=== PATIENT | female | born 1960 | race Caucasian/White ===

== ENCOUNTER 2017-08-15 21:38 | Emergency (ER) | payer MEDICARE, OTHER ==
[~2017-08-15] VITALS: Ht 172.7 cm; Wt 73.5 kg
[~2017-08-15 21:38] MED LIST: ABILIFY5 MG PO; ALBU INH; ALBUTEROL2.5 MG/0.5; ALBUTEROL25 GM INH; AMITRIPTYLINE H25 MG PO; ARICEPT5 MG PO; BUSPAR PO; BUSPIRONE HCL15 MG PO; CELEBREX100 MG PO; COMBIVENT INH14.7 GM INH; COMBIVENT RESPIM4 GM IH; CYCLOBENZAPRINE10 MG PO; FAMOTIDINE20 MG PO; FLUOXETINE HCL20 M1 PO; GLIMEPIRIDE2 MG PO; GLIMEPIRIDE4 MG PO; LANTUS 3ML100 UNITS/ SC; LANTUS100 UNIT/1 SQ; LASIX40 MG PO; LEVAQUIN500 MG PO; LEVOFLOXACIN500 MG PO; LISINOPRIL2.5 MG PO; LOSARTAN POTASS25 MG PO; LYRICA75 MG PO; NEURONTIN300 MG PO; NICOTINE PATCH1 EAC1; PANTOPRAZOLE SO40 MG PO; PRAVASTATIN SOD40 MG PO; PREDNISONE10 MG PO; PREVACID30 MG PO; PROAIR HFA INH8.5 GM INH; PROZAC20 MG PO; SIMVASTATIN20 MG PO; SUCRALFATE1 GM PO; SYMBICORT INH; TOPROL XL25 MG PO; VENLAFAXINE HCL75 MG PO; ZITHROMAX250 MG PO
[2017-08-15] MEDS ORDERED: MORPHINE SULFATE 2 MG/ML SYR IV STA (21:49)
[2017-08-15] MEDS ORDERED: ONDANSETRON HCL INJ 2 MG/ML VIAL IV STA (21:49)
[2017-08-15] MEDS ORDERED: SODIUM CHLORIDE 0.9% 1000ML 1,000 ML IV STA (21:49)
[2017-08-15] MEDS ORDERED: TETANUS/DIPHTHERIA TOX ADULT 0.5 ML SYR IM ONE (22:15)
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
[2017-08-15 22:37] LABS: BASOPHILS # (AUTO) 0.1 (0.0-0.1); BASOPHILS % 1.2 % (0.0-1.0); EOSINOPHILS % 0.2 % (0.0-6.0); HEMATOCRIT 33.9 % (34.2-44.1); HEMOGLOBIN 11.5 g/dL (12.0-16.0); LYMPHOCYTES # (AUTO) 1.6 (1.0-3.2); LYMPHOCYTES % 16.8 % (18.0-39.1); MEAN CORPUSCULAR HEMOGLOBIN 30.8 pg (28-32); MEAN CORPUSCULAR HGB CONC 33.9 g/dL (31-35); MEAN CORPUSCULAR VOLUME 90.9 fL (81-99); MONOCYTES # (AUTO) 0.8 (0.2-0.8); MONOCYTES % 8.5 % (4.4-11.3); NEUTROPHILS # (AUTO) 6.9 (2.1-6.9); NEUTROPHILS % 73.1 % (38.7-80.0); PLATELET COUNT 215 x10e3/uL (140-360); RED BLOOD COUNT 3.73 x10e6/uL (3.6-5.1); RED CELL DISTRIBUTION WIDTH 12.3 % (11.7-14.4)
[2017-08-15 22:46] LABS: INR 1.04; PROTHROMBIN TIME 14.1 seconds (11.9-14.5)
[2017-08-15 22:47] LABS: PARTIAL THROMBOPLASTIN TIME 27.8 seconds (23.8-35.5)
[2017-08-15 22:57] LABS: ALBUMIN/GLOBULIN RATIO 0.9 (0.8-2.0); ANION GAP 18.2 mmol/L (8-16); CALCIUM 9.5 mg/dL (8.4-10.2); CREATININE, SERUM 1.52 mg/dL (0.57-1.11); MAGNESIUM 2.1 MG/DL (1.3-2.1); POTASSIUM 4.2 mmol/L (3.5-5.1)
[2017-08-15 23:03] LABS: CREATINE KINASE MB 2.4 ng/mL (0.00-5.00); TROPONIN I 0.021 ng/mL (0-0.300)
== END 2017-08-15 22:07 | disposition short-term general hospital (02) ==
LOC: ER 21:38
DX: T20.27XA Burn of second degree of neck, initial encounter (principal); T23.222A Burn of second degree of single left finger (nail) except thumb, initial encounter; T20.16XA Burn of first degree of forehead and cheek, initial encounter; T20.14XA Burn of first degree of nose (septum), initial encounter; T20.12XA Burn of first degree of lip(s), initial encounter; T22.111A Burn of first degree of right forearm, initial encounter; T23.102A Burn of first degree of left hand, unspecified site, initial encounter; T26.01XA Burn of right eyelid and periocular area, initial encounter; X04.XXXA Exposure to ignition of highly flammable material, initial encounter; Y92.000 Kitchen of unspecified non-institutional (private) residence as the place of occurrence of the external cause; I10 Essential (primary) hypertension; E11.9 Type 2 diabetes mellitus without complications; I25.10 Atherosclerotic heart disease of native coronary artery without angina pectoris; I25.2 Old myocardial infarction
CPT/HCPCS: 16025; 36415; 71010; 80053; 82550; 82553; 83735; 84484; 85025; 85610; 85730; 90471; 90714; 93005; 96360; 96374; 96375; 96376; 99284; J2270; J2405

== ENCOUNTER 2017-08-24 04:45 | Emergency (ER) | payer MEDICARE, OTHER ==
[~2017-08-24] VITALS: Ht 172.7 cm; Wt 73.5 kg
== END 2017-08-24 06:39 | disposition short-term general hospital (02) ==
LOC: ER 04:52
DX: R52 Pain, unspecified (principal)

== ENCOUNTER 2018-08-08 06:38 | Inpatient (IN) | payer MEDICARE, OTHER ==
[~2018-08-08] VITALS: Ht 171.4 cm; Wt 80.5 kg
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
[2018-08-08] MEDS ORDERED: DEXAMETHASONE SOD PHOS 10 MG/1 ML VIAL IV ONE (07:30)
[2018-08-08] MEDS ORDERED: ALBUTEROL/IPRATROPIUM 3 ML NEB NEB ONE (07:30)
[2018-08-08] MEDS ORDERED: MAGNESIUM SULFATE 2GM/50ML 50 ML IV ONE (07:30)
[2018-08-08] MEDS ORDERED: COMBIVENT RESPIM4 GM IH (07:31)
[2018-08-08] MEDS ORDERED: LAMOTRIGINE100 MG PO (07:31)
[2018-08-08] MEDS ORDERED: QUETIAPINE FUMA50 MG PO (07:31)
[2018-08-08] MEDS ORDERED: MELOXICAM15 MG PO (07:31)
[2018-08-08 07:54] LABS: BASOPHILS # (AUTO) 0.1 (0.0-0.1); BASOPHILS % 0.4 % (0.0-1.0); HEMATOCRIT 32.1 % (34.2-44.1); LYMPHOCYTES # (AUTO) 1.6 (1.0-3.2); LYMPHOCYTES % 13.9 % (18.0-39.1); MEAN CORPUSCULAR HEMOGLOBIN 31.2 pg (28-32); MEAN CORPUSCULAR HGB CONC 32.1 g/dL (31-35); MEAN CORPUSCULAR VOLUME 97.3 fL (81-99); MONOCYTES # (AUTO) 0.7 (0.2-0.8); MONOCYTES % 6.4 % (4.4-11.3); NEUTROPHILS % 78.9 % (38.7-80.0); PLATELET COUNT 217 x10e3/uL (140-360); RED CELL DISTRIBUTION WIDTH 11.8 % (11.7-14.4)
[2018-08-08 07:57] LABS: HEMOGLOBIN 10.3 g/dL (12.0-16.0)
--- NOTE | 2018-08-08 08:17 | Diagnostic Imaging Report ---
EXAM: CHEST 2 VIEWS, PA and lateral DATE: 08/08/2018 7:03 AM Time stamp on exam: 7:38 AM INDICATION: Shortness of breath COMPARISON: 08/15/2017 FINDINGS: LINES/TUBES: None LUNGS: Lungs are hyperexpanded compatible with COPD. Interval development of bibasilar interstitial opacities when compared to the prior study. These are likely related to infection. PLEURA: No effusions or pneumothorax. HEART AND MEDIASTINUM: Normal size and contour. BONES AND SOFT TISSUES: Right first rib is enlarged and sclerotic but unchanged. IMPRESSION: Findings of COPD with interval development of bibasilar opacities. Signed by: Dr. Amadou Aguirre DO on 08/08/2018 8:14 AM
[2018-08-08 08:20] LABS: CREATINE KINASE MB 2.6 ng/mL (0-5.0)
[2018-08-08 08:29] LABS: ALANINE AMINOTRANSFERASE 14 IU/L (0-55); ALBUMIN 3.2 g/dL (3.5-5.0); ALBUMIN/GLOBULIN RATIO 1.1 (0.8-2.0); ALKALINE PHOSPHATASE 142 IU/L (40-150); ANION GAP 17.4 mmol/L (8-16); BLOOD UREA NITROGEN 11 mg/dL (7-26); BUN/CREATININE RATIO 14 (6-25); CARBON DIOXIDE 30 mmol/L (22-29); CHLORIDE 101 mmol/L (98-107); CREATININE, SERUM 0.81 mg/dL (0.57-1.11); EST GLOMERULAR FILTRATION RATE > 60 ML/MIN (60-); GLUCOSE 206 mg/dL (74-118); POTASSIUM 4.4 mmol/L (3.5-5.1); SODIUM 144 mmol/L (136-145)
[2018-08-08 09:29] LABS: ABG HCO3 33 mmol/L (23-28); ABG PCO2 54 mmHg (41-51); ABG PO2 69 mmHg (80-105)
[2018-08-08] MEDS ORDERED: SODIUM CHLORIDE FLUSH 10 ML SYR INJ PRN (10:45)
[2018-08-08] MEDS ORDERED: DEXTROSE 50% SYRINGE 50 ML IV PRN (10:45)
[2018-08-08] MEDS ORDERED: ASPIRIN 81 MG CHEW TAB PO ONE (10:45)
[2018-08-08] MEDS: ALBUTEROL/IPRATROPIUM 3 ML NEB NEB SCH ×4 (11:00→23:45)
[2018-08-08] MEDS: CEFTAROLINE FOSAMIL ACETATE 400 MG in SODIUM CHLORIDE 0.9% 250ML 250 ML IV SCH ×2 (11:01→22:57)
[2018-08-08 11:28] LABS: ABG HCO3 33 mmol/L (23-28); ABG PCO2 54 mmHg (41-51); ABG PH 7.39 (7.31-7.41); ABG PO2 89 mmHg (80-105)
[2018-08-08] MEDS: INSULIN REGULAR, HUMAN 100 UNIT/1 ML 3ML VIAL SQ SCH ×3 (11:45→22:57)
[2018-08-08 16:09] LABS: CREATINE KINASE MB 2.8 ng/mL (0-5.0)
[2018-08-08 16:21] LABS: CHOL/HDL RATIO 2.2 (3.0-3.6)
[2018-08-08] MEDS: GUAIFENESIN/DEXTROMETHORPHAN LIQD 5 ML UDC NG SCH ×2 (16:25→22:57)
[2018-08-08] MEDS: ENOXAPARIN SOD INJ 40 MG/0.4 ML SYR SC SCH (17:27)
[2018-08-08] MEDS: FAMOTIDINE 20 MG TAB PO SCH (17:27)
[2018-08-08] MEDS: FAMOTIDINE 20 MG/2 ML VIAL IV SCH (17:36)
[2018-08-08] MEDS: QUETIAPINE FUMARATE 25 MG TAB PO SCH (17:36)
--- NOTE | 2018-08-08 19:14 | NUR ---
RECEIVED REPORT FROM VIVIANA ARNETT.
--- NOTE | 2018-08-08 20:36 | Consultation ---
DATE OF CONSULTATION: August 08, 2018 PULMONARY CONSULTATION REASON FOR CONSULTATION: Shortness of breath, COPD. HPI: Ms. Smith is a 58-year-old female known to our practice. She sees Dr. Real for COPD. She has severe COPD and she has chronic hypoxic respiratory failure and uses home oxygen. She still smokes. She has been a smoker for 40 years. She denies any complaints of chest pain, nausea or vomiting. She reports she started having increasing wheezing and shortness of breath and so she decided to come to the emergency room. REVIEW OF SYSTEMS: GENERAL: Denies any fever or chills. HEAD: Denies any head trauma. ENT: Denies any earache. CVS: Denies any chest pain. RESPIRATORY: Shortness of breath. GI: Denies any nausea or vomiting. The rest of the review of systems are negative except as in HPI. PAST MEDICAL HISTORY: Hypertension, COPD, hyperlipidemia, diabetes, bipolar disorder. SOCIAL HISTORY: She does not smoke. She has been a smoker for 35+ years. FAMILY HISTORY: Is noncontributory. ALLERGIES: PENICILLIN. PHYSICAL EXAMINATION: VITALS: Temperature 97.8, pulse of 72, blood pressure 157/65, respiratory rate of 18. HEENT: Head is atraumatic and normocephalic. NECK: Supple. CHEST: Wheezing bilaterally and crackles. HEART: S1 and S2 audible. ABDOMEN: Soft, nontender and nondistended. EXTREMITIES: No pedal edema. NEURO: She is awake and alert, following commands. She answers questions appropriately. LABORATORY DATA: White count of 11,000, hemoglobin 10.3, platelets 217. Chemistry: Sodium 144, potassium 4.4, chloride 101. BUN 11, creatinine 0.8. BNP 441.6. Chest x-ray: I reviewed the images showing hyperinflation and some opacities in the bases. ASSESSMENT AND PLAN: Ms. Smith is a 58-year-old female who presented with worsening shortness of breath. CURRENT PROBLEMS: 1. Chronic obstructive pulmonary disease exacerbation, possible pneumonia. 2. Hypertension. 3. Bipolar disorder. PLAN: 1. Agree with the antibiotics. Patient is at risk for getting Pseudomonas infection, hence agree with sertraline. 2. DuoNeb treatment q.4 hourly. 3. Lovenox subcutaneous for DVT prophylaxis. 4. Solu-Medrol 40 IV b.i.d.. Thank you for this consult. Job#: [id number] GH
--- NOTE | 2018-08-08 21:23 | NUR ---
received report from Rhianna WIN
--- NOTE | 2018-08-08 21:45 | NUR ---
Received patient from ER bed to bed accompanied by ER staff, alert, on O2 support, on telemetry, on continuous pulse ox, Sat at 97%. Placed comfortably in bed. Call light within reached, advised to call for assistance when needed, bed alarm activated, side rails up, bed in low and locked position. Will continue to monitor Addendum: 08/09/18 at 0053 by ARLINE REHMAN RN Received patient per meghan
[2018-08-08 22:00] VITALS: BP 112/56
--- NOTE | 2018-08-08 22:21 | History and Physical ---
PRIMARY CARE PHYSICIAN: Dr. Veronica CHIEF COMPLAINT: Shortness of breath and cough. HISTORY OF PRESENT ILLNESS: This is a 58-year-old woman recently discharged from [facility] with persistent cough and shortness of breath, subjective fevers for the past 3 days; therefore, she came to the hospital. She was found to have lung infiltrate and acute exacerbation of copd. She was admitted for further evaluation and management. PAST MEDICAL HISTORY: Severe COPD on 4 L of nasal cannula oxygen at home, asthma, diabetes mellitus, pneumonia, hypertension, bipolar disorder, depression. PAST SURGICAL HISTORY: Cholecystectomy, appendectomy, tonsillectomy, gastric band. ALLERGIES: PER ELECTRONIC MEDICAL RECORD. MEDICATIONS: Per electronic medical record. SOCIAL HISTORY: Patient is single. No alcohol or illicits. She smokes about a pack of cigarettes per day. MEDICATIONS: Per electronic medical record. REVIEW OF SYSTEMS: Denies any headache, chest pain. Denies any leg pain, back pain. Denies any vision changes. PHYSICAL EXAMINATION VITAL SIGNS: Reviewed. GENERAL: A tired-appearing woman resting in bed. HEENT: Anicteric. CARDIOVASCULAR: Normal S1 and S2. LUNGS: Reduced breath sounds throughout. ABDOMEN: Soft, nontender, nondistended. EXTREMITIES: No edema. SKIN: Dry. PSYCHIATRIC: Normal affect. LABS: Reviewed. MEDICATIONS: Reviewed. ASSESSMENT: This is a 58-year-old man with: 1. Acute exacerbation of chronic obstructive pulmonary disease. 2. Acute respiratory distress with healthcare-associated pneumonia. 3. Cigarette use. 4. Bipolar disorder. 5. Depression. 6. Normocytic anemia. 7. Diabetes mellitus. PLAN 1. Antibiotics plus steroids plus antihistamine plus antitussive medications. 2. Continue home medication of venlafaxine, sucralfate, lamotrigine. 3. Continue Lasix 40 daily. 4. Continue fluoxetine. 5. Cigarette cessation counseling. 6. Prophylaxis with Pepcid and Lovenox. 7. Disposition: Follow up closely. Obtain sputum culture. Pulmonary consultation. Job#: [id number] CQ
[2018-08-08 22:25] VITALS: BP 112/56
[2018-08-08] MEDS: METHYLPREDNISOLONE SOD SUCC 40 MG/ML VIAL IV SCH (22:56)
[2018-08-08] MEDS: LAMOTRIGINE 100 MG TAB PO SCH (22:57)
[2018-08-08] MEDS: PRAVASTATIN 20 MG TAB PO SCH (22:57)
[2018-08-09] VITALS (7 sets, daily range): BP systolic 108–139; BP diastolic 49–63
[2018-08-09] MEDS: ALBUTEROL/IPRATROPIUM 3 ML NEB NEB SCH ×6 (03:10→23:00)
[2018-08-09 04:45] LABS: BASOPHILS % 0.2 % (0.0-1.0); HEMATOCRIT 30.2 % (34.2-44.1); HEMOGLOBIN 9.7 g/dL (12.0-16.0); LYMPHOCYTES # (AUTO) 0.7 (1.0-3.2); LYMPHOCYTES % 5.6 % (18.0-39.1); MEAN CORPUSCULAR HEMOGLOBIN 30.3 pg (28-32); MEAN CORPUSCULAR HGB CONC 32.1 g/dL (31-35); MEAN CORPUSCULAR VOLUME 94.4 fL (81-99); MONOCYTES # (AUTO) 0.1 (0.2-0.8); MONOCYTES % 1.2 % (4.4-11.3); NEUTROPHILS # (AUTO) 10.9 (2.1-6.9); NEUTROPHILS % 92.5 % (38.7-80.0); PLATELET COUNT 212 x10e3/uL (140-360); RED CELL DISTRIBUTION WIDTH 11.7 % (11.7-14.4)
[2018-08-09 05:01] LABS: ANION GAP 12.3 mmol/L (8-16); CALCIUM 8.9 mg/dL (8.4-10.2); CREATININE, SERUM 1.03 mg/dL (0.57-1.11); POTASSIUM 4.3 mmol/L (3.5-5.1)
[2018-08-09] MEDS: GUAIFENESIN/DEXTROMETHORPHAN LIQD 5 ML UDC NG SCH ×3 (06:05→22:16)
[2018-08-09 06:53] LABS: CREATINE KINASE MB 2.2 ng/mL (0-5.0)
--- NOTE | 2018-08-09 07:04 | NUR ---
IM- Progress Note O/N; no events REVIEW OF SYSTEMS: Denies any headache, chest pain. Denies any leg pain, back pain. Denies any vision changes. PHYSICAL EXAMINATION VITAL SIGNS: Reviewed. GENERAL: A tired-appearing woman resting in bed. HEENT: Anicteric. CARDIOVASCULAR: Normal S1 and S2. LUNGS: Reduced breath sounds throughout. ABDOMEN: Soft, nontender, nondistended. EXTREMITIES: No edema. SKIN: Dry. PSYCHIATRIC: Normal affect. LABS: Reviewed. MEDICATIONS: Reviewed. ASSESSMENT: This is a 58-year-old man with: 1. Acute exacerbation of chronic obstructive pulmonary disease. 2. Acute respiratory distress with healthcare-associated pneumonia. 3. Cigarette use. 4. Bipolar disorder. 5. Depression. 6. Normocytic anemia. 7. Diabetes mellitus. PLAN 1. Antibiotics plus steroids plus antihistamine plus antitussive medications. 2. Continue home medication of venlafaxine, sucralfate, lamotrigine. 3. Continue Lasix 40 daily. 4. Continue fluoxetine. 5. Cigarette cessation counseling. 6. Prophylaxis with Pepcid and Lovenox. 7. Disposition: Follow up closely. Obtain sputum culture. Pulmonary consultation. 08/09 cont current care. Josh Gilliam MD, PhD
--- NOTE | 2018-08-09 07:10 | NUR ---
Yaneth RT informed of the ABG order for this morning and it says active, he said it's already done, 2 ABG's done yesterday.
--- NOTE | 2018-08-09 07:54 | NUR ---
RECEIVED PATIENT IN BED WITH ONGOING OXYGEN AT [facility] VIA NASAL CANNULA.
[2018-08-09] MEDS: SUCRALFATE 1 GM TAB PO SCH (09:27)
[2018-08-09] MEDS: FAMOTIDINE 20 MG TAB PO SCH ×2 (09:27→17:26)
[2018-08-09] MEDS: METHYLPREDNISOLONE SOD SUCC 40 MG/ML VIAL IV SCH ×2 (09:29→22:16)
[2018-08-09] MEDS: CEFTAROLINE FOSAMIL ACETATE 400 MG in SODIUM CHLORIDE 0.9% 250ML 250 ML IV SCH ×2 (09:29→22:16)
[2018-08-09] MEDS: LOSARTAN POTASSIUM 25 MG TAB PO SCH (09:30)
[2018-08-09] MEDS: VENLAFAXINE HCL 75 MG TAB PO SCH (09:31)
[2018-08-09] MEDS: ALPRAZOLAM 0.25 MG TAB PO SCH ×3 (09:31→22:16)
[2018-08-09] MEDS: FLUOXETINE HCL 20 MG CAP PO SCH (09:31)
[2018-08-09] MEDS: FAMOTIDINE 20 MG/2 ML VIAL IV SCH (09:31)
[2018-08-09] MEDS: QUETIAPINE FUMARATE 25 MG TAB PO SCH ×2 (09:31→17:26)
[2018-08-09] MEDS: FUROSEMIDE 40 MG TAB PO SCH (09:31)
[2018-08-09] MEDS: LORATADINE 10 MG TAB PO SCH (09:31)
[2018-08-09] MEDS: INSULIN REGULAR, HUMAN 100 UNIT/1 ML 3ML VIAL SQ SCH ×5 (10:04→22:17)
--- NOTE | 2018-08-09 10:14 | NUR ---
[employer] Lead to bedside to discuss plan of care with patient/family. CM/SW role and care transitions discussed. Anticipated discharge plan discussed along with duration of care. CM/SW discussed patients right to make decisions in care. CM/SW work hours given. Patient lives: alone Admit/Transfer: thru ED, from home POA/Emergency contact: daughters Bria Lux at [phone] and Meera Lux at [phone] Current/Previous Home Health: none PCP/Follow-up Care: Dr. 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 Name and number was also written on the patients whiteboard. Patient verbalized understanding of discussion. CM will follow-up with ongoing discharge and transition of care needs.
--- NOTE | 2018-08-09 10:18 | NUR ---
DR. ROLDAN MADE NEW ORDERS TO DISCONTINUE FAMOTIDINE INJECTION.
[2018-08-09] MEDS: ENOXAPARIN SOD INJ 40 MG/0.4 ML SYR SC SCH (17:26)
--- NOTE | 2018-08-09 18:23 | NUR ---
PATIENT STATED SHE TAKES LANTUS 15 UNITS SQ AT NIGHT TIME. DR ROLDAN NOTIFIED AND ORDERED TO START LANTUS SQ AT HS.
[2018-08-09] MEDS ORDERED: LANTUS 3ML100 UNITS/ SQ (18:35)
--- NOTE | 2018-08-09 20:20 | NUR ---
call placed to dr. rutherford, he stated "i am busy, i will call you right back". awaiting call back for elevated glucose. see emar for insulin administration. patient in stable condition at this time. encouraged patient to increase water intake. patient verbalized understanding.
[2018-08-09] MEDS: INSULIN DETEMIR 100 UNIT/ML PEN SQ SCH (20:26)
--- NOTE | 2018-08-09 21:45 | NUR ---
spoke with Dr. Gilliam regarding patients elevated blood sugar, and interventions provided. orders to change sliding scale to medium dose, first dose now and changed accucheck from ACHS to Q6. orders entered, and implemented. patient remains in stable condition. bed locked and in lowest position, call light within easy reach. will continue to monitor the patient closely.
[2018-08-09] MEDS ORDERED: DEXTROSE 50% SYRINGE 50 ML IV PRN (22:00)
[2018-08-09] MEDS: PRAVASTATIN 20 MG TAB PO SCH (22:16)
[2018-08-09] MEDS: LAMOTRIGINE 100 MG TAB PO SCH (22:16)
[2018-08-10] VITALS (8 sets, daily range): BP systolic 123–168; BP diastolic 59–74
[2018-08-10] MEDS ORDERED: ACETAMINOPHEN 325 MG TAB PO PRN (00:30)
[2018-08-10] MEDS: ALBUTEROL/IPRATROPIUM 3 ML NEB NEB SCH ×6 (03:00→23:30)
[2018-08-10] MEDS: ALPRAZOLAM 0.25 MG TAB PO SCH ×3 (06:15→21:55)
[2018-08-10] MEDS: GUAIFENESIN/DEXTROMETHORPHAN LIQD 5 ML UDC NG SCH ×3 (06:15→21:55)
[2018-08-10] MEDS: INSULIN REGULAR, HUMAN 100 UNIT/1 ML 3ML VIAL SQ SCH ×4 (06:16→17:52)
--- NOTE | 2018-08-10 07:31 | NUR ---
IM- Progress Note O/N; no events REVIEW OF SYSTEMS: Denies any headache, chest pain. Denies any leg pain, back pain. Denies any vision changes. PHYSICAL EXAMINATION VITAL SIGNS: Reviewed. GENERAL: A tired-appearing woman resting in bed. HEENT: Anicteric. CARDIOVASCULAR: Normal S1 and S2. LUNGS: Reduced breath sounds throughout. ABDOMEN: Soft, nontender, nondistended. EXTREMITIES: No edema. SKIN: Dry. PSYCHIATRIC: Normal affect. LABS: Reviewed. MEDICATIONS: Reviewed. ASSESSMENT: This is a 58-year-old man with: 1. Acute exacerbation of chronic obstructive pulmonary disease. 2. Acute respiratory distress with healthcare-associated pneumonia. 3. Cigarette use. 4. Bipolar disorder. 5. Depression. 6. Normocytic anemia. 7. Diabetes mellitus. PLAN 1. Antibiotics plus steroids plus antihistamine plus antitussive medications. 2. Continue home medication of venlafaxine, sucralfate, lamotrigine. 3. Continue Lasix 40 daily. 4. Continue fluoxetine. 5. Cigarette cessation counseling. 6. Prophylaxis with Pepcid and Lovenox. 7. Disposition: Follow up closely. Obtain sputum culture. Pulmonary consultation. 08/09 cont current care. 08/10 cont meds; refuses SNF. Josh Gilliam MD, PhD
[2018-08-10 07:47] LABS: BASOPHILS % 0.3 % (0.0-1.0); HEMATOCRIT 28.8 % (34.2-44.1); HEMOGLOBIN 9.2 g/dL (12.0-16.0); LYMPHOCYTES % 7.5 % (18.0-39.1); MEAN CORPUSCULAR HEMOGLOBIN 31.1 pg (28-32); MEAN CORPUSCULAR HGB CONC 31.9 g/dL (31-35); MEAN CORPUSCULAR VOLUME 97.3 fL (81-99); MONOCYTES # (AUTO) 0.5 (0.2-0.8); MONOCYTES % 3.7 % (4.4-11.3); NEUTROPHILS # (AUTO) 11.3 (2.1-6.9); PLATELET COUNT 203 x10e3/uL (140-360); RED BLOOD COUNT 2.96 x10e6/uL (3.6-5.1); RED CELL DISTRIBUTION WIDTH 12.2 % (11.7-14.4)
[2018-08-10 08:36] LABS: ANION GAP 15.5 mmol/L (8-16); CALCIUM 8.7 mg/dL (8.4-10.2); CREATININE, SERUM 1.3 mg/dL (0.57-1.11); POTASSIUM 4.5 mmol/L (3.5-5.1)
[2018-08-10] MEDS: FLUOXETINE HCL 20 MG CAP PO SCH (08:46)
[2018-08-10] MEDS: VENLAFAXINE HCL 75 MG TAB PO SCH (08:46)
[2018-08-10] MEDS: FUROSEMIDE 40 MG TAB PO SCH (08:46)
[2018-08-10] MEDS: FAMOTIDINE 20 MG TAB PO SCH ×2 (08:48→17:51)
[2018-08-10] MEDS: METHYLPREDNISOLONE SOD SUCC 40 MG/ML VIAL IV SCH ×2 (08:48→21:55)
[2018-08-10] MEDS: SUCRALFATE 1 GM TAB PO SCH (08:48)
[2018-08-10] MEDS: LORATADINE 10 MG TAB PO SCH (08:48)
[2018-08-10] MEDS: QUETIAPINE FUMARATE 25 MG TAB PO SCH ×2 (08:56→17:51)
[2018-08-10] MEDS: LOSARTAN POTASSIUM 25 MG TAB PO SCH (08:57)
[2018-08-10] MEDS: CEFTAROLINE FOSAMIL ACETATE 400 MG in SODIUM CHLORIDE 0.9% 250ML 250 ML IV SCH ×2 (10:05→21:55)
[2018-08-10] MEDS: ENOXAPARIN SOD INJ 40 MG/0.4 ML SYR SC SCH (17:51)
--- NOTE | 2018-08-10 19:10 | NUR ---
RECEIVED PATIENT SLEEPING IN BED, NO S/S OF DISTRESS OBSERVED. WILL CONTINUE TO MONITOR THE PATIENT. BED LOCKED AND IN LOWEST POSITION, CALL LIGHT WITHIN EASY REACH.
[2018-08-10] MEDS: INSULIN DETEMIR 100 UNIT/ML PEN SQ SCH (21:55)
[2018-08-10] MEDS: LAMOTRIGINE 100 MG TAB PO SCH (21:55)
[2018-08-10] MEDS: PRAVASTATIN 20 MG TAB PO SCH (21:55)
[2018-08-11] VITALS (8 sets, daily range): BP systolic 105–142; BP diastolic 57–68
[2018-08-11] MEDS: INSULIN REGULAR, HUMAN 100 UNIT/1 ML 3ML VIAL SQ SCH ×4 (00:19→18:20)
[2018-08-11] MEDS: ALBUTEROL/IPRATROPIUM 3 ML NEB NEB SCH ×6 (03:15→22:20)
--- NOTE | 2018-08-11 06:20 | NUR ---
IM- Progress Note O/N; no events REVIEW OF SYSTEMS: Denies any headache, chest pain. Denies any leg pain, back pain. Denies any vision changes. PHYSICAL EXAMINATION VITAL SIGNS: Reviewed. GENERAL: A tired-appearing woman resting in bed. HEENT: Anicteric. CARDIOVASCULAR: Normal S1 and S2. LUNGS: Reduced breath sounds throughout. ABDOMEN: Soft, nontender, nondistended. EXTREMITIES: No edema. SKIN: Dry. PSYCHIATRIC: Normal affect. LABS: Reviewed. MEDICATIONS: Reviewed. ASSESSMENT: This is a 58-year-old man with: 1. Acute exacerbation of chronic obstructive pulmonary disease. 2. Acute respiratory distress with healthcare-associated pneumonia. 3. Cigarette use. 4. Bipolar disorder. 5. Depression. 6. Normocytic anemia. 7. Diabetes mellitus. PLAN 1. Antibiotics plus steroids plus antihistamine plus antitussive medications. 2. Continue home medication of venlafaxine, sucralfate, lamotrigine. 3. Continue Lasix 40 daily. 4. Continue fluoxetine. 5. Cigarette cessation counseling. 6. Prophylaxis with Pepcid and Lovenox. 7. Disposition: Follow up closely. Obtain sputum culture. Pulmonary consultation. 08/09 cont current care. 08/10 cont meds; refuses SNF. 08/11 worsening renal fn- d/c lasix and losartan; f/u in am; resp improving; Josh Gilliam MD, PhD
[2018-08-11] MEDS: ALPRAZOLAM 0.25 MG TAB PO SCH ×3 (06:24→21:53)
[2018-08-11] MEDS: GUAIFENESIN/DEXTROMETHORPHAN LIQD 5 ML UDC NG SCH ×3 (06:24→21:53)
[2018-08-11] MEDS: VENLAFAXINE HCL 75 MG TAB PO SCH (09:35)
[2018-08-11] MEDS: FAMOTIDINE 20 MG TAB PO SCH ×2 (09:35→17:27)
[2018-08-11] MEDS: FLUOXETINE HCL 20 MG CAP PO SCH (09:35)
[2018-08-11] MEDS: METHYLPREDNISOLONE SOD SUCC 40 MG/ML VIAL IV SCH ×2 (09:35→22:57)
[2018-08-11] MEDS: LORATADINE 10 MG TAB PO SCH (09:35)
[2018-08-11] MEDS: CEFTAROLINE FOSAMIL ACETATE 400 MG in SODIUM CHLORIDE 0.9% 250ML 250 ML IV SCH ×2 (09:35→22:57)
[2018-08-11] MEDS: SUCRALFATE 1 GM TAB PO SCH (09:35)
[2018-08-11] MEDS: QUETIAPINE FUMARATE 25 MG TAB PO SCH ×2 (09:35→17:27)
[2018-08-11] MEDS: ENOXAPARIN SOD INJ 40 MG/0.4 ML SYR SC SCH (17:27)
[2018-08-11] MEDS ORDERED: INSULIN DETEMIR 100 UNIT/ML PEN SQ SCH (21:00)
[2018-08-11] MEDS: LAMOTRIGINE 100 MG TAB PO SCH (21:53)
[2018-08-11] MEDS: PRAVASTATIN 20 MG TAB PO SCH (21:53)
[2018-08-11] MEDS: INSULIN DETEMIR 100 UNIT/ML PEN SQ SCH (21:57)
--- NOTE | 2018-08-11 23:02 | NUR ---
NEW IV PLACED TO RIGHT WRIST 20G. PATIENT TOLERATED WELL.
[2018-08-12] VITALS: BP 120/56
[2018-08-12] MEDS: INSULIN REGULAR, HUMAN 100 UNIT/1 ML 3ML VIAL SQ SCH ×2 (00:54→06:42)
[2018-08-12] MEDS: ALBUTEROL/IPRATROPIUM 3 ML NEB NEB SCH ×3 (02:50→10:46)
[2018-08-12 04:00] VITALS: BP 129/59
[2018-08-12 05:19] LABS: BASOPHILS % 0.3 % (0.0-1.0); HEMATOCRIT 31.1 % (34.2-44.1); HEMOGLOBIN 9.8 g/dL (12.0-16.0); LYMPHOCYTES # (AUTO) 0.9 (1.0-3.2); LYMPHOCYTES % 8.5 % (18.0-39.1); MEAN CORPUSCULAR HEMOGLOBIN 30.4 pg (28-32); MEAN CORPUSCULAR HGB CONC 31.5 g/dL (31-35); MEAN CORPUSCULAR VOLUME 96.6 fL (81-99); MONOCYTES # (AUTO) 0.6 (0.2-0.8); MONOCYTES % 5.5 % (4.4-11.3); NEUTROPHILS # (AUTO) 9.4 (2.1-6.9); NEUTROPHILS % 85.2 % (38.7-80.0); PLATELET COUNT 248 x10e3/uL (140-360); RED BLOOD COUNT 3.22 x10e6/uL (3.6-5.1); RED CELL DISTRIBUTION WIDTH 12.2 % (11.7-14.4)
[2018-08-12 05:43] LABS: ANION GAP 14.7 mmol/L (8-16); CALCIUM 9.4 mg/dL (8.4-10.2); CREATININE, SERUM 1.15 mg/dL (0.57-1.11); POTASSIUM 4.7 mmol/L (3.5-5.1)
[2018-08-12] MEDS: ALPRAZOLAM 0.25 MG TAB PO SCH (06:42)
[2018-08-12] MEDS: GUAIFENESIN/DEXTROMETHORPHAN LIQD 5 ML UDC NG SCH (06:42)
[2018-08-12] MEDS ORDERED: PREDNISONE20 MG PO (07:29)
[2018-08-12] MEDS ORDERED: DOXYCYCLINE MO100 M1 PO (07:29)
[2018-08-12] MEDS ORDERED: LORATADINE10 MG PO (07:29)
[2018-08-12] MEDS ORDERED: Guaifenesin/Dextromethorphan NG (07:29)
[2018-08-12] MEDS ORDERED: PANTOPRAZOLE SOD 40 MG TABEC PO SCH (07:30)
--- NOTE | 2018-08-12 07:32 | NUR ---
DIscharge Summary Principal dx: ASSESSMENT: This is a 58-year-old man with: 1. Acute exacerbation of chronic obstructive pulmonary disease. 2. Acute respiratory distress with healthcare-associated pneumonia. 3. Cigarette use. 4. Bipolar disorder. 5. Depression. 6. Normocytic anemia. 7. Diabetes mellitus. Secondary dx: Cig use cc and hpi; refer to H&P Hospital Course:ASSESSMENT: This is a 58-year-old man with: 1. Acute exacerbation of chronic obstructive pulmonary disease. 2. Acute respiratory distress with healthcare-associated pneumonia. 3. Cigarette use. 4. Bipolar disorder. 5. Depression. 6. Normocytic anemia. 7. Diabetes mellitus. PLAN 1. Antibiotics plus steroids plus antihistamine plus antitussive medications. 2. Continue home medication of venlafaxine, sucralfate, lamotrigine. 3. Continue Lasix 40 daily. 4. Continue fluoxetine. 5. Cigarette cessation counseling. 6. Prophylaxis with Pepcid and Lovenox. 7. Disposition: Follow up closely. Obtain sputum culture. Pulmonary consultation. 08/09 cont current care. 08/10 cont meds; refuses SNF. 08/11 worsening renal fn- d/c lasix and losartan; f/u in am; resp improving; 08/12 promises to quit cig for good; d/c condition: improving d/c location; home d/c time>35mins d/c meds; see MAR and includes doxycycline/prednisione f/u pcp 1 week and 10 days; Josh Gilliam MD, PhD
[2018-08-12 08:00] VITALS: BP 132/59
[2018-08-12 08:10] VITALS: BP 132/59
--- NOTE | 2018-08-12 08:17 | NUR ---
IMM letter delivered and explained to pt. She verbalized understanding, stated she wants to go home. Signed copy placed in chart. Copy to pt. Pt will discharge home with no needs.
[2018-08-12] MEDS ORDERED: PREDNISONE 20 MG TAB PO SCH (09:00)
[2018-08-12] MEDS: FAMOTIDINE 20 MG TAB PO SCH (09:36)
[2018-08-12] MEDS: SUCRALFATE 1 GM TAB PO SCH (09:36)
[2018-08-12] MEDS: FLUOXETINE HCL 20 MG CAP PO SCH (09:37)
[2018-08-12] MEDS: QUETIAPINE FUMARATE 25 MG TAB PO SCH (09:37)
[2018-08-12] MEDS: CEFTAROLINE FOSAMIL ACETATE 400 MG in SODIUM CHLORIDE 0.9% 250ML 250 ML IV SCH (09:37)
[2018-08-12] MEDS: VENLAFAXINE HCL 75 MG TAB PO SCH (09:37)
[2018-08-12] MEDS: LORATADINE 10 MG TAB PO SCH (09:37)
[2018-08-12 12:00] VITALS: BP 126/67
--- NOTE | 2018-08-12 14:16 | NUR ---
PT DISCHARGED HOME WITH PRESCRIPTIONS AND WRITTEN INFORMATION. IV TAKEN OUT AND SITE LOOKS CLEAN AND DRY, NO REDNESS OR SWOLLEN NOTED. PT TRANSPORTED VIA W/C BY STAFF TO [facility] BY FAMILY.
[2018-08-12] MEDS ORDERED: GLIMEPIRIDE 2 MG TAB PO SCH (17:00)
[2018-08-12] MEDS ORDERED: SIMVASTATIN 20 MG TAB PO SCH (21:00)
== END 2018-08-12 14:08 | disposition home or self-care (01) | DRG 193 ==
LOC: ER 06:38 → ERHOLD 10:46 → MED/SURG2 21:45
PROVIDERS: ADMIT Internal Medicine; ATTEND Internal Medicine
DX: J18.9 Pneumonia, unspecified organism (principal); J96.01 Acute respiratory failure with hypoxia; J44.1 Chronic obstructive pulmonary disease with (acute) exacerbation; J44.0 Chronic obstructive pulmonary disease with (acute) lower respiratory infection; F17.210 Nicotine dependence, cigarettes, uncomplicated; F31.9 Bipolar disorder, unspecified; Y95 Nosocomial condition; E11.9 Type 2 diabetes mellitus without complications; D64.9 Anemia, unspecified
CPT/HCPCS: 36415; 36600; 71046; 80048; 80053; 80061; 82550; 82553; 82805; 82948; 83036; 83880; 84484; 85025; 87040; 87070; 87186; 87205; 93005; 94640; 96372; 99284; J1100; J1650; J2920; J3475; J7050; J7512

== ENCOUNTER 2018-12-27 08:48 | Observation (INO) | payer MEDICARE, OTHER ==
[2018-12-22 15:08] LABS: BASOPHILS # (AUTO) 0.1 (0.0-0.1); BASOPHILS % 0.7 % (0.0-1.0); EOSINOPHILS % 0.1 % (0.0-6.0); HEMATOCRIT 34.4 % (34.2-44.1); HEMOGLOBIN 11.2 g/dL (12.0-16.0); LYMPHOCYTES # (AUTO) 2.2 (1.0-3.2); LYMPHOCYTES % 20.5 % (18.0-39.1); MEAN CORPUSCULAR HEMOGLOBIN 31.2 pg (28-32); MEAN CORPUSCULAR HGB CONC 32.6 g/dL (31-35); MEAN CORPUSCULAR VOLUME 95.8 fL (81-99); MONOCYTES # (AUTO) 0.9 (0.2-0.8); MONOCYTES % 8.3 % (4.4-11.3); NEUTROPHILS # (AUTO) 7.4 (2.1-6.9); NEUTROPHILS % 69.9 % (38.7-80.0); PLATELET COUNT 194 x10e3/uL (140-360); RED BLOOD COUNT 3.59 x10e6/uL (3.6-5.1); RED CELL DISTRIBUTION WIDTH 12.6 % (11.7-14.4)
[2018-12-22 15:24] LABS: PROTHROMBIN TIME 13.7 seconds (11.9-14.5)
[2018-12-22 15:32] LABS: ALBUMIN 3.5 g/dL (3.5-5.0); ANION GAP 10.2 mmol/L (8-16); CALCIUM 9.8 mg/dL (8.4-10.2); CREATININE, SERUM 1.15 mg/dL (0.57-1.11); POTASSIUM 4.2 mmol/L (3.5-5.1)
[2018-12-27] VITALS (9 sets, daily range): BP systolic 134–180; BP diastolic 68–90
[~2018-12-27] VITALS: Ht 172.7 cm; Wt 70.8 kg
[~2018-12-27 08:48] MED LIST changes: +DOXYCYCLINE MO100 M1 PO; +Guaifenesin/Dextromethorphan NG; +LAMOTRIGINE100 MG PO; +LANTUS 3ML100 UNITS/ SQ; +LORATADINE10 MG PO; +MELOXICAM15 MG PO; +PREDNISONE20 MG PO; +QUETIAPINE FUMA50 MG PO
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
--- OUTSIDE RECORDS SUMMARY | 2018-12-27 08:53 | XMS REPORT | Summary of Care ---
Author Author [facility] [place] Organization [facility] [place] Address Unknown Phone Unavailable Encounter [facility]([place]) [id number] Date(s): 01/05/17 - 01/05/17 [facility] [place] [address] [place] [phone] Discharge Disposition: Home or Self Care Attending Physician: Alessandra Timmons MD Vital Signs No data available for [...] Current. Type: Marijuana. Alcohol Past Smoking Status Former smoker; Exposure to Tobacco Smoke None; Other Tobacco Frequency quit 3 weeks; Cigarette Smoking Last 365 Days Yes; Reg Smoking Cessation Counseling No Assessment and Plan No data available for this section
--- OUTSIDE RECORDS SUMMARY | 2018-12-27 08:53 | XMS REPORT | Summary of Care ---
Author Author [facility] - [place] Organization [facility] [place] Address Unknown Phone Unavailable Encounter [facility]) [id number] Date(s): 03/23/17 - 03/23/17 [facility] - [place] [address] [place] [phone] Discharge Disposition: Home or Self Care Attending Physician: Fredy Real MD Vital Signs No data available for [...]
--- OUTSIDE RECORDS SUMMARY | 2018-12-27 08:53 | XMS REPORT | Continuity of Care Document ---
Author Author [facility] Interface Address Unknown Phone Unavailable Problems Problem Status Onset Date Classification Date Reported Comments Source CHEST PAIN Active 09/14/2018 [place] CHEST PAIN Active 09/14/2018 [facility] M25.521 - PAIN IN RIGHT ELBOW Active 11/09/2017 [facility] [place] BLISTERS, BURN Active 08/15/2017 [facility] AVALOS Active 08/15/2017 [facility] R05 - COUGH Active 01/05/2017 [facility] [place] PNEUMONIA Active 02/23/2016 [facility] UNK Active 12/19/2015 [facility] 611.72 - LUMP OR MASS IN Active 01/11/2015 [facility] [place] Apnea, sleep Resolved Problem 09/18/2018 [facility] [place] Asthma Resolved Problem 09/18/2018 [facility] [place] Bipolar Resolved Problem 09/18/2018 [facility] [place] COPD Resolved Problem 09/18/2018 [facility] [place] Depression Resolved Problem 09/18/2018 [facility] [place] Diabetes Resolved Problem 09/18/2018 [facility] [place] GERD (<span [id number]</span>) Resolved Problem 09/18/2018 [facility] [place] Heart attack Resolved Problem 09/18/2018 [facility] [place] HLD (<span [id number]">Confirmed</span>) Resolved Problem 09/18/2018 [facility] [place] PNEUMONIA, UNSPECIFIED ORGANISM Active [facility] BURN SECOND DEGREE OF HEAD, FACE, AND NE Active [facility] CHEST PAIN, UNSPECIFIED Active [facility] Medications Medication Details Route Status Patient Instructions Ordering Provider Order Date Source Saline Flush 0.9% 10 ml, Route: IVP, Drug Form: INJ, Dosing Weight 77.273, kg, Q12H, Start date: 09/15/18 9:00:00 FACING END TRIMMER, Duration: 30 day, Stop date: 10/14/18 21:00:00 CSTNotes: (Same as: BD Posiflush) Inactive 09/15/2018 [facility] Aspirin 325 MG Oral Tablet 325 mg, 1 tab, Route: PO, Drug form: TAB, Q24H, Dosing Weight 77.273, kg, Start date: 09/15/18 9:00:00 FACING END TRIMMER, Duration: 30 day, Stop date: 10/14/18 9:00:00 CSTNotes: Take with food. Inactive 09/15/2018 [facility] Insulin Lispro 10 unit, 0.1 mL, Route: SUB-Q, Drug form: SOLN, TID-Before Meals, Dosing Weight 77.273, kg, PRN Blood Glucose Results, Start date: 09/15/18 6:58:00 FACING END TRIMMER, Duration: 30 day, Stop date: 10/15/18 6:57:00 CSTNotes: (Same as: Humalog ) Roll in palms of hands gently; Do not shake `vigorously. "Single Patient Use Only " WASTE: F/P - Black; E - Municipal Trash Bin Stable for 28 days at room temperature. Expires in days from Date Inactive 09/15/2018 [facility] Glucagon 1 mg, Route: IM, Drug form: PDR/INJ, PRN, Dosing Weight 77.273, kg, PRN Blood Glucose Results, Start date: 09/15/18 6:58:00 FACING END TRIMMER, Duration: 30 day, Stop date: 10/15/18 6:57:00 FACING END TRIMMER Inactive 09/15/2018 [facility] Dextrose 50% Syringe 25 gm, 50 mL, Route: IVP, Drug Form: INJ, Dosing Weight 77.273, kg, PRN, PRN Blood Glucose Results, Start date: 09/15/18 6:58:00 FACING END TRIMMER, Duration: 30 day, Stop date: 10/15/18 6:57:00 FACING END TRIMMER Inactive 09/15/2018 [facility] ARIPiprazole 10 mg oral tablet 10 mg=1 tab, PO, Daily, # 30 tab, 0 Refill(s) Active 09/15/2018 [facility] 200 ACTUAT Albuterol 0.09 MG/ACTUAT / Ipratropium [place] 0.018 MG/ACTUAT Metered Dose Inhaler [Combivent] 2 puff, INHALER, QID, # 14 gm, 0 Refill(s) Active 09/15/2018 [facility] sucralfate 1 g oral tablet 1 gm=1 tab, PO, QID, # 40 tab, 0 Refill(s) Active 09/15/2018 [facility] rosuvastatin 10 mg oral tablet 10 mg=1 tab, PO, Bedtime, # 30 tab, 0 Refill(s) Active 09/15/2018 [facility] Trelegy Ellipta inhalation powder =1 puff, INHALATION, Daily, 0 Refill(s) Active 09/15/2018 [facility] Saline Flush 0.9% 10 ml, Route: IVP, Drug Form: INJ, Dosing Weight 77.273, kg, PRN, PRN Line Flush, Start date: 09/15/18 6:00:00 FACING END TRIMMER, Duration: 30 day, Stop date: 10/15/18 5:59:00 CSTNotes: (Same as: BD Posiflush) Inactive 09/15/2018 [facility] Acetaminophen 325 MG / Hydrocodone Bitartrate 5 MG Oral Tablet 1 tab, Route: PO, Drug Form: TAB, Dosing Weight 77.273, kg, Q4H, PRN Pain Score 4-6, Start date: 09/15/18 6:00:00 FACING END TRIMMER, Duration: 30 day, Stop date: 10/15/18 5:59:00 CSTNotes: (Same as: [place] 325/5) Do not exceed 4gm/day of acetaminophen. Inactive 09/15/2018 [facility] Morphine 2 mg, 1 mL, Route: IVP, Drug form: SOLN, Q2H, Dosing Weight 77.273, kg, PRN Pain Score 4-6, Start date: 09/15/18 6:00:00 FACING END TRIMMER, Duration: 30 day, Stop date: 10/15/18 5:59:00 FACING END TRIMMER Inactive 09/15/2018 [facility] Nitroglycerin 0.4 mg, 1 tab, Route: SL, Drug form: TAB, Q5Min, Dosing Weight 77.273, kg, PRN Chest Pain, Start date: 09/15/18 6:00:00 FACING END TRIMMER, Duration: 3 doses or times, Stop date: Limited # of timesNotes: (Same as:Richard romero, Nitrostat) "Do Not Crush" Sublingual tablet Inactive 09/15/2018 [facility] Sodium Chloride 0.9% IV 1,000 mL + M.V.I.-12 10 mL Daily + folic acid IV 1 mg Daily + thiamine IV 1 1,000 mL, Rate: 100 ml/hr, Infuse over: 10 hr, Route: IV, Dosing Weight 77.273 kg, Total Volume: 1,000, Start date: 09/15/18 6:00:00 FACING END TRIMMER, Duration: 3 day, Stop date: 09/18/18 5:59:00 FACING END TRIMMER, 1.93, m2 Inactive 09/15/2018 [facility] Hydralazine 10 mg, Route: IV, ONCE, Dosing Weight 77.273, kg, Start date: 09/15/18 2:59:00 FACING END TRIMMER, Stop date: 09/15/18 2:59:00 FACING END TRIMMER Inactive 09/15/2018 [facility] sucralfate 1 g oral tablet 1 gm=1 tab, PO, QID, # 28 tab, 0 Refill(s) Active 09/15/2018 [facility] venlafaxine 75 mg, PO, Daily, 0 Refill(s) Active 09/15/2018 [facility] meloxicam 15 mg oral tablet 15 mg=1 tab, PO, Daily, # 30 tab, 0 Refill(s) Active 09/15/2018 [facility] lamotrigine 100 mg, PO, Bedtime, 0 Refill(s) Active 09/15/2018 [facility] Aspirin 81 MG Chewable Tablet 324 mg, Route: PO, Drug form: CHEWTAB, ONCE, Dosing Weight 77.273, kg, Priority: STAT, Start date: 09/15/18 2:41:00 FACING END TRIMMER, Stop date: 09/15/18 2:41:00 FACING END TRIMMER Inactive 09/15/2018 [facility] Saline Flush 0.9% 10 mL, Route: IVP, Drug Form: INJ, Dosing Weight 79.1, kg, PRN, PRN Line Flush, Start date: 09/14/18 21:37:00 FACING END TRIMMER, Duration: 30 day, Stop date: 10/14/18 21:36:00 CSTNotes: (Same as: BD Posiflush) No Longer Active 09/15/2018 [facility] Acetaminophen 325 MG / Hydrocodone Bitartrate 5 MG Oral Tablet 1 tab, PO, Q4H, PRN Pain Score 4-6, X 7 day, # 20 tab, 0 Refill(s), given to patient Active 08/17/2017 [facility] Glucan Pro Ointment 3.5oz See Instructions, TOP TID, # 5 gm, 0 Refill(s) Active 08/17/2017 [facility] bacitracin zinc 0.5 UNT/MG Topical Ointment 1 appl, TOP, Q12H, X 14 day, # 15 gm, 0 Refill(s), Pharmacy: [facility] [id number] Active 08/17/2017 [facility] Bacitracin 0.5 UNT/MG Ophthalmic Ointment 1 appl, BOTH EYES, QID, X 14 day, # 4 gm, 0 Refill(s), Pharmacy: [facility] [id number] Active 08/17/2017 [facility] Pravastatin 40 mg, 2 tab, Route: PO, Drug form: TAB, Bedtime, Dosing Weight 73.636, kg, Start date: 08/16/17 21:00:00 FACING END TRIMMER, Duration: 30 day, Stop date: 09/14/17 21:00:00 CSTNotes: (Same as: Pravachol) No Longer Active 08/17/2017 [facility] pantoprazole 40 mg, 1 tab, Route: PO, Drug form: ECTAB, Before Dinner, Dosing Weight 73.636, kg, Start date: 08/16/17 16:30:00 FACING END TRIMMER, Duration: 30 day, Stop date: 09/14/17 16:30:00 CSTNotes: Tablet should not be ch ewed or crushed. (Same as: Protonix) No Longer Active 08/16/2017 [facility] Bacitracin 0.25 inch, Route: BOTH EYES, Q4H, Drug form: OINT, Start date: 08/16/17 12:00:00 FACING END TRIMMER, Duration: 30 day, Stop date: 09/15/17 8:00:00 FACING END TRIMMER No Longer Active 08/16/2017 [facility] Docusate 100 mg, 1 cap, Route: PO, Drug form: CAP, BID, Dosing Weight 73.636, kg, Start date: 08/16/17 9:00:00 FACING END TRIMMER, Duration: 30 day, Stop date: 09/14/17 17:00:00 CSTNotes: (Same as: Colace) (Do Not Crush) No Longer Active 08/16/2017 [facility] Sertraline 100 mg, 1 tab, Route: PO, Drug form: TAB, Daily, Dosing Weight 73.636, kg, Start date: 08/16/17 9:00:00 FACING END TRIMMER, Duration: 30 day, Stop date: 09/14/17 9:00:00 CSTNotes: (Same as: Zoloft) No Longer Active 08/16/2017 [facility] Deep Sea Nasal [place] 2 spray, Route: NASAL, QID, Drug form: SOLN, Start date: 08/16/17 9:00:00 FACING END TRIMMER, Duration: 30 day, Stop date: 09/14/17 21:00:00 CSTNotes: (Same as: [place], Deep Sea Nasal [place]). No Longer Active 08/16/2017 [facility] Bacitracin 1 appl, Route: TOP, Q12H, Drug form: OINT, Start date: 08/16/17 9:00:00 FACING END TRIMMER, Duration: 30 day, Stop date: 09/14/17 21:00:00 FACING END TRIMMER No Longer Active 08/16/2017 [facility] quetiapine 50 mg, 2 tab, Route: PO, Drug form: TAB, BID, Dosing Weight 73.636, kg, Start date: 08/16/17 9:00:00 FACING END TRIMMER, Stop date: 09/14/17 17:00:00 CSTNotes: (Same as: SEROquel) No Longer Active 08/16/2017 [facility] Lyrica 75 mg, 1 cap, Route: PO, Drug form: CAP, BID, Dosing Weight 73.636, kg, Start date: 08/16/17 9:00:00 FACING END TRIMMER, Duration: 30 day, Stop date: 09/14/17 17:00:00 CSTNotes: (Same as: Lyrica) No Longer Active 08/16/2017 [facility] Losartan 50 mg, 1 tab, Route: PO, Drug form: TAB, Daily, Dosing Weight 73.636, kg, Start date: 08/16/17 9:00:00 FACING END TRIMMER, Duration: 30 day, Stop date: 09/14/17 9:00:00 CSTNotes: (Same as: Cozaar) No Longer Active 08/16/2017 [facility] Prevacid 30 mg, 10 mL, Route: PO, Drug form: SUSP, Daily, Dosing Weight 73.636, kg, Start date: 08/16/17 9:00:00 FACING END TRIMMER, Duration: 30 day, Stop date: 09/14/17 9:00:00 CSTNotes: Take 1 hour before or 2 hours after meal; Expires in 14 days. Shake well before use. (Same as:Prevacid) Compounded Product - formulation not commercially available No Longer Active 08/16/2017 [facility] donepezil 5 mg, 1 tab, Route: PO, Drug form: TAB, Daily, Dosing Weight 73.636, kg, Start date: 08/16/17 9:00:00 FACING END TRIMMER, Duration: 30 day, Stop date: 09/14/17 9:00:00 CSTNotes: (Same as: Aricept) No Longer Active 08/16/2017 [facility] Bupropion 150 mg, 1 tab, Route: PO, Drug form: ERTAB, BID, Dosing Weight 73.636, kg, Start date: 08/16/17 9:00:00 FACING END TRIMMER, Duration: 30 day, Stop date: 09/14/17 17:00:00 CSTNotes: (Do not crush) (Same As: Wellbutrin SR) No Longer Active 08/16/2017 [facility] budesonide-formoterol 160 mcg-4.5 mcg/inh inhalation aerosol with adapter 2 puff, Route: INHALER, Drug Form: AERO/A, RBID, Start date: 08/16/17 8:00:00 FACING END TRIMMER, Duration: 30 day, Stop date: 09/14/17 20:00:00 CSTNotes: (Same as: Symbicort) WASTE: Aerosol - Return to Pharmacy No Longer Active 08/16/2017 [facility] Albuterol 0.83 MG/ML Inhalant Solution 2.49 mg, 3 mL, Route: NEB, Drug form: SOLN, RQ4H, Dosing Weight 73.636, kg, Start date: 08/16/17 7:00:00 FACING END TRIMMER, Duration: 30 day, Stop date: 09/15/17 3:00:00 CSTNotes: SEE RT DOCUMENTATION (Same as: Proventil) No Longer Active 08/16/2017 [facility] Benadryl 25 mg, 1 cap, Route: PO, Drug form: CAP, TID, Dosing Weight 73.636, kg, PRN Itching, Start date: 08/16/17 5:23:00 FACING END TRIMMER, Duration: 30 day, Stop date: 09/15/17 5:22:00 CSTNotes: (Same as: Benadryl) No Longer Active 08/16/2017 [facility] Acetaminophen 325 MG / Hydrocodone Bitartrate 10 MG Oral Tablet [[place] 10/325] 1 tab, Route: PO, Drug Form: TAB, Dosing Weight 73.636, kg, Q6Hnow, Start date: 08/16/17 5:00:00 FACING END TRIMMER, Duration: 30 day, Stop date: 09/14/17 23:00:00 CSTNotes: Do not exceed 4gm/day of acetaminophen. (Same as: Sidell 325/10) No Longer Active 08/16/2017 [facility] tramadol hydrochloride 50 MG Oral Tablet 100 mg, 2 tab, Route: PO, Drug form: TAB, Q6Hnow, Dosing Weight 73.636, kg, Start date: 08/16/17 5:00:00 FACING END TRIMMER, Duration: 30 day, Stop date: 09/14/17 23:00:00 CSTNotes: Not to exceed 400mg/day. (Same As: Ultram) Inactive 08/16/2017 [facility] Enoxaparin 40 mg, 0.4 mL, Route: SUB-Q, Drug form: INJ, [id number], Dosing Weight 73.636, kg, Start date: 08/16/17 5:00:00 FACING END TRIMMER, Duration: 30 day, Stop date: 09/14/17 5:00:00 CSTNotes: (Same as: Lovenox) No Longer Active 08/16/2017 [facility] Insulin Lispro 10 unit, 0.1 mL, Route: SUB-Q, Drug form: SOLN, TID-Before Meals, Dosing Weight 73.636, kg, PRN Blood Glucose Results, Start date: 08/16/17 4:10:00 FACING END TRIMMER, Duration: 30 day, Stop date: 09/15/17 4:09:00 CSTNotes: (Same as: Humalog ) Roll in palms of hands gently; Do not shake `vigorously. "Single Patient Use Only " WASTE: F/P - Black; E - Municipal Trash Bin Stable for 28 days at room temperature. Expires in days from Date No Longer Active 08/16/2017 [facility] Dextrose 50% Syringe 25 gm, 50 mL, Route: IVP, Drug Form: INJ, Dosing Weight 73.636, kg, PRN, PRN Blood Glucose Results, Start date: 08/16/17 4:10:00 FACING END TRIMMER, Duration: 30 day, Stop date: 09/15/17 4:09:00 FACING END TRIMMER No Longer Active 08/16/2017 [facility] Glucagon 1 mg, Route: IM, Drug form: PDR/INJ, PRN, Dosing Weight 73.636, kg, PRN Blood Glucose Results, Start date: 08/16/17 4:10:00 FACING END TRIMMER, Duration: 30 day, Stop date: 09/15/17 4:09:00 FACING END TRIMMER No Longer Active 08/16/2017 [facility] Glucan Pro Ointment 3.5oz 1 appl, Route: TOP, PRN, Drug form: OINT, PRN Dressing Change, Start date: 08/16/17 3:14:00 FACING END TRIMMER, Duration: 30 day, Stop date: 09/15/17 3:13:00 CSTNotes: Same as "Glucan Pro Ointment" No Longer Active 08/16/2017 [facility] Advair HFA 115 mcg-21 mcg/inh inhalation aerosol with adapter 1 puff, Route: INHALATION, Drug Form: AERO/A, Dosing Weight 73.636, kg, BID, PRN Shortness of breath, Start date: 08/16/17 2:53:00 FACING END TRIMMER, Duration: 30 day, Stop date: 09/15/17 2:52:00 FACING END TRIMMER Inactive 08/16/2017 [facility] Acetaminophen 325 mg, 1 tab, Route: PO, Drug form: TAB, Q4H, Dosing Weight 73.636, kg, PRN Pain Score 4-6, Start date: 08/16/17 2:50:00 FACING END TRIMMER, Duration: 30 day, Stop date: 09/15/17 2:49:00 CSTNotes: Do not exceed 4 gm/day. (Same as: Tylenol) No Longer Active 08/16/2017 [facility] Ondansetron 4 mg, 2 mL, Route: IVP, Drug form: INJ, Q6H, Dosing Weight 73.636, kg, PRN Nausea & Vomiting, Start date: 08/16/17 2:50:00 FACING END TRIMMER, Duration: 30 day, Stop date: 09/15/17 2:49:00 CSTNotes: (Same as: Zofran) MEDICATION WASTE Product Size: 4 mg Product Wasted: ___ mg No Longer Active 08/16/2017 [facility] Morphine 4 mg, 1 mL, Route: IVP, Drug form: SOLN, Q4H, Dosing Weight 73.636, kg, PRN Pain Score 7-10, Start date: 08/16/17 2:50:00 FACING END TRIMMER, Duration: 30 day, Stop date: 09/15/17 2:49:00 CSTNotes: (Same as:MORPhine Sulfate) No Longer Active 08/16/2017 [facility] Acetaminophen 325 MG / Hydrocodone Bitartrate 5 MG Oral Tablet 1 tab, Route: PO, Drug Form: TAB, Dosing Weight 73.636, kg, Q4H, PRN Pain Score 4-6, Start date: 08/16/17 2:50:00 FACING END TRIMMER, Duration: 30 day, Stop date: 09/15/17 2:49:00 CSTNotes: (Same as: [place]ell 325/5) Do not exceed 4gm/day of acetaminophen. No Longer Active 08/16/2017 [facility] Fentanyl 50 microgram, Route: IVP, ONCE, Dosing Weight 73.636, kg, Priority: STAT, Start date: 08/16/17 0:49:00 FACING END TRIMMER, Stop date: 08/16/17 0:49:00 FACING END TRIMMER Inactive 08/16/2017 [facility] Levemir FlexPen 15 unit, 0.15 mL, Route: SUB-Q, Drug form: INJ, Bedtime, Start date: 02/24/16 21:00:00 CDT, Duration: 30 day, Stop date: 03/24/16 21:00:00 CDTNotes: Same as Levemir Do not hold insulin without contac ting prescriber WASTE: F/P - Black; E - Municipal Trash Bin "single patient use only" Inactive 02/25/2016 [facility] Lantus 15 unit, Route: SUB-Q, Bedtime, Dosing Weight 70.909, kg, Start date: 02/24/16 21:00:00 CDT, Duration: 30 day, Stop date: 03/24/16 21:00:00 CDT Inactive 02/25/2016 [facility] sertraline 100 mg oral tablet 100 mg=1 tab, PO, Daily, 0 Refill(s) Active 02/24/2016 [facility] OXcarbazepine 300 mg oral tablet 300 mg=1 tab, PO, BID, # 90 tab, 6 Refill(s) Active 02/24/2016 [facility] Losartan 50 mg, 1 tab, Route: PO, Drug form: TAB, Daily, Dosing Weight 71.364, kg, Start date: 02/24/16 9:00:00 CDT, Duration: 30 day, Stop date: 03/24/16 9:00:00 CDTNotes: (Same as: Cozaar) Inactive 02/24/2016 [facility] Prevacid 30 mg, Route: PO, Drug form: DRC, Daily, Dosing Weight 71.364, kg, Start date: 02/24/16 9:00:00 CDT, Duration: 30 day, Stop date: 03/24/16 9:00:00 CDT No Longer Active 02/24/2016 [facility] Fluoxetine 20 mg, 2 cap, Route: PO, Drug form: CAP, Daily, Dosing Weight 71.364, kg, Start date: 02/24/16 9:00:00 CDT, Duration: 30 day, Stop date: 03/24/16 9:00:00 CDTNotes: (Same as: Prozac) Inactive 02/24/2016 [facility] Furosemide 40 MG Oral Tablet 40 mg, 1 tab, Route: PO, Drug form: TAB, Daily, Dosing Weight 71.364, kg, Start date: 02/24/16 9:00:00 CDT, Duration: 30 day, Stop date: 03/24/16 9:00:00 CDTNotes: (Same as: Lasix) May cause GI upset. Give with food or milk. Inactive 02/24/2016 [facility] donepezil 5 mg, 1 tab, Route: PO, Drug form: TAB, Daily, Dosing Weight 71.364, kg, Start date: 02/24/16 9:00:00 CDT, Duration: 30 day, Stop date: 03/24/16 9:00:00 CDTNotes: (Same as: Aricept) Inactive 02/24/2016 [facility] glimepiride 4 mg, 1 tab, Route: PO, Drug form: TAB, Breakfast, Dosing Weight 71.364, kg, Start date: 02/24/16 8:00:00 CDT, Duration: 30 day, Stop date: 03/24/16 8:00:00 CDTNotes: (Same as: Amaryl) Inactive 02/24/2016 [facility] Pravastatin 40 mg, 2 tab, Route: PO, Drug form: TAB, Bedtime, Dosing Weight 71.364, kg, Start date: 02/23/16 21:00:00 CDT, Duration: 30 day, Stop date: 03/23/16 21:00:00 CDTNotes: (Same as: Pravachol) No Longer Active 02/24/2016 [facility] Lantus 15 unit, Route: SUB-Q, Bedtime, Dosing Weight 71.364, kg, Start date: 02/23/16 21:00:00 CDT, Duration: 30 day, Stop date: 03/23/16 21:00:00 CDT Inactive 02/24/2016 [facility] methylPREDNISolone SODium SUCCinate 40 mg, 1 mL, Route: IVP, Drug form: INJ, Q12H, Dosing Weight 71.364, kg, Start date: 02/23/16 21:00:00 CDT, Duration: 30 day, Stop date: 03/24/16 9:00:00 CDTNotes: (Same as:Solu-MEDROL, A-Methapred) No Longer Active 02/24/2016 [facility] Levemir FlexPen 15 unit, 0.15 mL, Route: SUB-Q, Drug form: INJ, Bedtime, Start date: 02/23/16 21:00:00 CDT, Duration: 30 day, Stop date: 03/23/16 21:00:00 CDTNotes: Same as Levemir Do not hold insulin without contac ting prescriber WASTE: F/P - Black; E - Municipal Trash Bin "single patient use only" No Longer Active 02/24/2016 [facility] meropenem 500 mg, Route: IVPB, Q6H, Dosing Weight 71.364, kg, CrCL >=50ml/min, Extended infusion, infuse over 3 hours, Start date: 02/23/16 18:00:00 CDT, Duration: 30 day, Stop date: 03/24/16 12:00:00 CDTNotes: Same as Merrem MEDICATION WASTE Product Size: 500 mg Product Wasted: ___ mg No Longer Active 02/23/2016 [facility] Lyrica 75 mg, 1 cap, Route: PO, Drug form: CAP, BID, Dosing Weight 71.364, kg, Start date: 02/23/16 17:00:00 CDT, Duration: 30 day, Stop date: 03/24/16 9:00:00 CDTNotes: (Same as: Lyrica) No Longer Active 02/23/2016 [facility] quetiapine 50 mg, 2 tab, Route: PO, Drug form: TAB, BID, Dosing Weight 71.364, kg, Start date: 02/23/16 17:00:00 CDT, Duration: 30 day, Stop date: 03/24/16 9:00:00 CDTNotes: (Same as: SEROquel) No Longer Active 02/23/2016 [facility] Bupropion 150 mg, 1 tab, Route: PO, Drug form: ERTAB, BID, Dosing Weight 71.364, kg, Start date: 02/23/16 17:00:00 CDT, Duration: 30 day, Stop date: 03/24/16 9:00:00 CDTNotes: (Do not crush) (Same As: Wellbutrin SR) No Longer Active 02/23/2016 [facility] pantoprazole 40 mg, 1 tab, Route: PO, Drug form: ECTAB, Before Dinner, Dosing Weight 71.364, kg, Start date: 02/23/16 16:30:00 CDT, Duration: 30 day, Stop date: 03/23/16 16:30:00 CDTNotes: Tablet should not be ch ewed or crushed. (Same as: Protonix) No Longer Active 02/23/2016 [facility] Acetaminophen 325 MG / Hydrocodone Bitartrate 5 MG Oral Tablet [[place] 5/325] 1 tab, Route: PO, Drug Form: TAB, Dosing Weight 70.909, kg, Q6H, PRN Pain Score 1-3, Start date: 02/23/16 16:22:00 CDT, Duration: 30 day, Stop date: 03/24/16 16:21:00 CDTNotes: (Same as: [place] 325/5) Do not exceed 4gm/day of acetaminophen. No Longer Active 02/23/2016 [facility] Ibuprofen 400 MG Oral Tablet 400 mg, 1 tab, Route: PO, Drug form: TAB, TID, Dosing Weight 70.909, kg, PRN Pain Score 1-3, Start date: 02/23/16 16:22:00 CDT, Duration: 30 day, Stop date: 03/24/16 16:21:00 CDTNotes: (Same as: Motrin) "Do Not Crush" Give with food. No Longer Active 02/23/2016 [facility] RN-Bring pt's own ADVAIR INh to pharmacy for label RN-Bring pt's own ADVAIR INh to pharmacy for label, Attn:RN, Drug form: MISC, Route: MISC, CASS, 02/23/16 16:00:00 CDT, Duration: 30 day, Stop date: 03/24/16 8:00:00 CDT No Longer Active 02/23/2016 [facility] 200 ACTUAT Ipratropium [place] 0.017 MG/ACTUAT Metered Dose Inhaler [Atrovent] 2 puff, Route: INHALATION, Drug Form: AERO, Dosing Weight 71.364, kg, RQID, Start date: 02/23/16 15:00:00 CDT, Duration: 30 day, Stop date: 03/24/16 11:00:00 CDTNotes: (ipratropium 17microgram/inh 14gm AER) (Same as:Atrovent) WASTE: Aerosol - Return to Pharmacy No Longer Active 02/23/2016 [facility] Albuterol 0.83 MG/ML Inhalant Solution 2.49 mg, 3 mL, Route: NEB, Drug form: SOLN, RQ4H, Dosing Weight 71.364, kg, Start date: 02/23/16 15:00:00 CDT, Duration: 30 day, Stop date: 03/24/16 11:00:00 CDTNotes: SEE RT DOCUMENTATION (Same as: Proventil) No Longer Active 02/23/2016 [facility] cefepime 1 gm, Route: IVPB, [id number], Dosing Weight 71.364, kg, (CrCl >/=50 ml/min or CVVHD), Start date: 02/23/16 15:00:00 CDT, Duration: 30 day, Stop date: 03/24/16 7:00:00 CDT Inactive 02/23/2016 [facility] Tobramycin 499.548 mg, Route: IVPB, [id number], Dosing Weight 71.364, kg, (For CrCl > 60 ml/min), Time Critical Medication, Start date: 02/23/16 15:00:00 CDT, Duration: 30 day, Stop date: 03/23/16 15:00:00 CDT Inactive 02/23/2016 [facility] Sodium Chloride 0.9% IV 500 mL 500 mL, Rate: 1,000 ml/hr, Infuse over: 0.5 hr, Route: IV, Dosing Weight 71.364 kg, Total Volume: 500, Start date: 02/23/16 14:42:00 CDT, Duration: 1 doses or times, Stop date: 02/23/16 15:11:00 CDT, Bolus Dose Inactive 02/23/2016 [facility] Insulin, Aspart, Human 2 unit, 0.02 mL, Route: SUB-Q, Drug form: SOLN, TID-Before Meals, Dosing Weight 71.364, kg, PRN Blood Glucose Results, Start date: 02/23/16 14:22:00 CDT, Duration: 30 day, Stop date: 03/24/16 14:21:00 CDTNotes: Roll in palms of hands gently; Do not shake vigorously. (Same as: NovoLOG) "single patient use only" WASTE: F/P - Black; E - Municipal Trash Bin Stable for 28 days at room temperature. Expires in days from Date No Longer Active 02/23/2016 [facility] Dextrose 50% Syringe 25 gm, 50 mL, Route: IVP, Drug Form: INJ, Dosing Weight 71.364, kg, PRN, PRN Blood Glucose Results, Start date: 02/23/16 14:22:00 CDT, Duration: 30 day, Stop date: 03/24/16 14:21:00 CDT No Longer Active 02/23/2016 [facility] Glucagon 1 mg, Route: IM, Drug form: PDR/INJ, PRN, Dosing Weight 71.364, kg, PRN Blood Glucose Results, Start date: 02/23/16 14:22:00 CDT, Duration: 30 day, Stop date: 03/24/16 14:21:00 CDT No Longer Active 02/23/2016 [facility] Guaifenesin 200 mg, 10 mL, Route: PO, Drug form: LIQ, Q4H, Dosing Weight 71.364, kg, PRN Cough, Start date: 02/23/16 14:22:00 CDT, Duration: 30 day, Stop date: 03/24/16 14:21:00 CDTNotes: (Same as: Robitussin) No Longer Active 02/23/2016 [facility] Ondansetron 4 mg, 2 mL, Route: IVP, Drug form: INJ, Q6H, Dosing Weight 71.364, kg, PRN Nausea & Vomiting, Start date: 02/23/16 14:22:00 CDT, Duration: 30 day, Stop date: 03/24/16 14:21:00 CDTNotes: (Same as: Zofran) MEDICATION WASTE Product Size: 4 mg Product Wasted: ___ mg No Longer Active 02/23/2016 [facility] Vancomycin 1,000 mg, Route: IVPB, [id number], Dosing Weight 71.364, kg, Start date: 02/23/16 14:00:00 CDT, Duration: 30 day, Stop date: 03/24/16 2:00:00 CDTNotes: TIME CRITICAL MEDICATION (Same As: Vancocin) Infusio n rate 2001 mg: infuse over 2.5 hours MEDICATION WASTE Product Size: 1000 mg Product Wasted: ___ mg No Longer Active 02/23/2016 [facility] Enoxaparin 40 mg, 0.4 mL, Route: SUB-Q, Drug form: INJ, [id number], Dosing Weight 71.364, kg, Start date: 02/23/16 14:00:00 CDT, Duration: 30 day, Stop date: 03/23/16 14:00:00 CDTNotes: (Same as: Lovenox) No Longer Active 02/23/2016 [facility] Advair HFA 115 mcg-21 mcg/inh inhalation aerosol with adapter 1 puff, Route: INHALATION, Drug Form: AERO/A, Dosing Weight 71.364, kg, BID, PRN Shortness of breath, Start date: 02/23/16 13:52:00 CDT, Duration: 30 day, Stop date: 03/24/16 13:51:00 CDT No Longer Active 02/23/2016 [facility] losartan 50 mg oral tablet 50 mg=1 tab, PO, Daily On Hold 02/23/2016 [facility] 200 ACTUAT Ipratropium [place] 0.017 MG/ACTUAT Metered Dose Inhaler [Atrovent] 2 puff, INHALATION, QID On Hold 02/23/2016 [facility] Advair HFA 115 mcg-21 mcg/inh inhalation aerosol with adapter 1 puff, INHALATION, BID, PRN Shortness of breath On Hold 02/23/2016 [facility] donepezil 5 mg oral tablet 5 mg=1 tab, PO, Daily On Hold 02/23/2016 [facility] buPROPion 150 mg oral tablet, extended release 150 mg=1 tab, PO, BID On Hold 02/23/2016 [facility] Albuterol 0.83 MG/ML Inhalant Solution 2.49 mg=3 mL, NEB, Q4H On Hold 02/23/2016 [facility] cefepime 1 gm, Route: IVPB, ONCE, Dosing Weight 71.364, kg, Priority: STAT, Start date: 02/23/16 11:44:00 CDT, Stop date: 02/23/16 11:44:00 CDT Inactive 02/23/2016 [facility] Levofloxacin 750 mg, Route: IVPB, ONCE, Dosing Weight 71.364, kg, Priority: STAT, Start date: 02/23/16 11:44:00 CDT, Stop date: 02/23/16 11:44:00 CDT Inactive 02/23/2016 [facility] Acetaminophen 325 MG / Hydrocodone Bitartrate 5 MG Oral Tablet [[place] 5/325] 2 tab, Route: PO, Drug Form: TAB, Dosing Weight 71.364, kg, ONCE, STAT, Start date: 02/23/16 10:56:00 CDT, Stop date: 02/23/16 10:56:00 CDT Inactive 02/23/2016 [facility] Albuterol 0.83 MG/ML Inhalant Solution 2.49 mg, Route: NEB, Drug form: SOLN, ONCE, Dosing Weight 71.364, kg, Priority: STAT, Start date: 02/23/16 10:13:00 CDT, Stop date: 02/23/16 10:13:00 CDT Inactive 02/23/2016 [facility] Saline Flush 0.9% 10 mL, Route: IVP, Drug Form: INJ, Dosing Weight 71.364, kg, PRN, PRN Line Flush, Start date: 02/23/16 10:13:00 CDT, Duration: 30 day, Stop date: 03/24/16 10:12:00 CDTNotes: (Same as: BD Posiflush) No Longer Active 02/23/2016 [facility] Sodium Chloride 0.154 MEQ/ML Injectable Solution 1,000 mL, Rate: 25 ml/hr, Infuse over: 40 hr, Route: IV, Dosing Weight 70.455 kg, Total Volume: 1,000, Start date: 12/19/15 15:19:00 CDT, Duration: 30 day, Stop date: 01/18/16 15:18:00 CDT Inactive 12/19/2015 [facility] Symbicort 160/4.5 inhalation aerosol with adapter 2 puff, INHALER, BID, # 1 ea, 3 Refill(s) Active 12/19/2015 [facility] sucralfate 1 g oral tablet 1 gm=1 tab, PO, Before Meals & Bedtime, # 120 tab, 3 Refill(s) Active 12/19/2015 [facility] QUEtiapine 50 mg oral tablet 50 mg=1 tab, PO, BID, # 60 tab, 0 Refill(s) Active 12/19/2015 [facility] lansoprazole 30 MG Enteric Coated Capsule [Prevacid] 30 mg, PO, Daily, # 15 cap, 0 Refill(s) Active 12/19/2015 [facility] pravastatin 40 mg oral tablet 40 mg=1 tab, PO, Bedtime, # 30 tab, 0 Refill(s) Active 12/19/2015 [facility] pantoprazole 40 mg oral enteric coated tablet 40 mg=1 tab, PO, Daily, # 30 tab, 0 Refill(s) Active 12/19/2015 [facility] Lantus SUB-Q, 0 Refill(s) Active 12/19/2015 [facility] glimepiride 4 mg oral tablet 4 mg=1 tab, PO, Breakfast, # 30 tab, 0 Refill(s) Active 12/19/2015 [facility] Furosemide 40 MG Oral Tablet 40 mg=1 tab, PO, Daily, # 30 tab, 0 Refill(s) Active 12/19/2015 [facility] FLUoxetine 20 mg oral capsule 20 mg=1 cap, PO, Daily, # 30 cap, 0 Refill(s) Active 12/19/2015 [facility] pregabalin 75 MG Oral Capsule [Lyrica] 75 mg=1 cap, PO, TID, # 90 cap, 0 Refill(s) Active 12/19/2015 [facility] lisinopril 20 mg oral tablet 20 mg=1 tab, PO, Daily, # 30 tab, 0 Refill(s) Active 12/19/2015 [facility] Atrovent HFA 2 puff, INHALATION, QID, 0 Refill(s) Active 12/19/2015 [facility] amitriptyline 25 mg oral tablet 25 mg=1 tab, PO, TID, # 270 tab, 0 Refill(s) Active 12/19/2015 [facility] Sodium Chloride 0.154 MEQ/ML Injectable Solution 1,000 mL, Rate: 25 ml/hr, Infuse over: 40 hr, Route: IV, Total Volume: 1,000, Start date: 12/19/15 15:05:00 CDT, Duration: 30 day, Stop date: 01/18/16 15:04:00 CDT Inactive 12/19/2015 [facility] Allergies, Adverse Reactions, Alerts Substance Category Reaction Severity Reaction type Status Date Reported Comments Source penicillins Assertion ITCHING Mild Drug allergy Active [facility] Immunizations Immunization Date Given Site Status Last Updated Comments Source Results Order Name Results Value Reference Range Date Interpretation Comments Source CARDIAC ENZYMES Troponin-I 0.02 ng/mL 0.00 - 0.40 09/15/2018 [facility] CARDIAC ENZYMES Troponin-I 0.02 ng/mL 0.00 - 0.40 09/15/2018 [facility] ELECTROLYTES AGAP 7.7 meq/L 10.0 - 20.0 09/15/2018 [facility] ELECTROLYTES eGFR 75 mL/min/1.73m2 09/15/2018 Result Comment: The eGFR is calculated using the [...] from the National Kidney Disease Education Program (NKDEP) which additionally recommends that when the eGFR is used in patients with extremes of body mass index for purposes of drug dosing, the eGFR should be multiplied by the estimated BMI. [facility] ELECTROLYTES BUN 15 mg/dL 7 - 22 09/15/2018 [facility] ELECTROLYTES Glucose Lvl 252 mg/dL 70 - 99 09/15/2018 [facility] ELECTROLYTES Potassium Lvl 3.7 meq/L 3.5 - 5.1 09/15/2018 [facility] ELECTROLYTES Sodium Lvl 138 meq/L 135 - 145 09/15/2018 [facility] ELECTROLYTES Creatinine Lvl 0.86 mg/dL 0.50 - 1.40 09/15/2018 [facility] ELECTROLYTES Calcium Lvl 8.4 mg/dL 8.5 - 10.5 09/15/2018 [facility] ELECTROLYTES CO2 30 meq/L 24 - 32 09/15/2018 [facility] ELECTROLYTES Chloride Lvl 104 meq/L 95 - 109 09/15/2018 [facility] HEMATOLOGY Platelet 155 K/CMM 133 - 450 09/15/2018 [facility] HEMATOLOGY MCHC 33.8 g/dL 32.0 - 36.0 09/15/2018 [facility] HEMATOLOGY RDW 12.8 % 11.5 - 14.5 09/15/2018 [facility] HEMATOLOGY Hgb 11.0 g/dL 12.0 - 16.0 09/15/2018 [facility] MCH 31.1 pg 27.0 - 31.0 09/15/2018 [facility] MCV 92.1 fL 80.0 - 98.0 09/15/2018 [facility] WBC 8.1 K/CMM 3.7 - 10.4 09/15/2018 [facility] RBC 3.53 M/CMM 4.20 - 5.40 09/15/2018 [facility] MPV 11.2 fL 7.4 - 10.4 09/15/2018 [facility] Hct 32.5 % 36.0 - 48.0 09/15/2018 [facility] Basophils # 0.1 K/CMM 0.0 - 0.2 09/15/2018 [facility] Lymphocytes # 2.1 K/CMM 1.0 - 5.5 09/15/2018 [facility] Neutrophils # 5.0 K/CMM 1.5 - 8.1 09/15/2018 [facility] Basophils 1.3 % 0.0 - 1.0 09/15/2018 [facility] Monocytes # 0.9 K/CMM 0.0 - 0.8 09/15/2018 [facility] Monocytes 11.2 % 2.0 - 12.0 09/15/2018 [facility] Large Plt Moderate *ABN* (09/15/18 6:46 AM) None Seen 09/15/2018 [facility] Lymphocytes 26.3 % 20.0 - 40.0 09/15/2018 [facility] Segs 61.2 % 45.0 - 75.0 09/15/2018 [facility] RBC Morph Normal (09/15/18 6:46 AM) 09/15/2018 [facility] URINE AND STOOL UA WBC 1 /HPF 0 - 5 09/15/2018 [facility] URINE AND STOOL UA Leuk Est Negative (09/15/18 1:10 AM) Negative 09/15/2018 [facility] URINE AND STOOL UA Nitrite Negative (09/15/18 1:10 AM) Negative 09/15/2018 [facility] URINE AND STOOL UA Urobilinogen <=1.0 mg/dL 0.1 - 1.0 09/15/2018 [facility] URINE AND STOOL UA Bacteria Occasional /HPF None Seen /HPF 09/15/2018 [facility] URINE AND STOOL UA Sq Epi Occasional /LPF Few /LPF 09/15/2018 [facility] URINE AND STOOL UA RBC 1 /HPF 0 - 2 09/15/2018 [facility] URINE AND STOOL UA Bili Negative *NA* (09/15/18 1:10 AM) Negative 09/15/2018 [facility] URINE AND STOOL UA Blood Negative (09/15/18 1:10 AM) Negative 09/15/2018 [facility] URINE AND STOOL UA Ketones Negative *NA* (09/15/18 1:10 AM) Negative 09/15/2018 [facility] URINE AND STOOL UA Protein Negative (09/15/18 1:10 AM) Negative 09/15/2018 [facility] URINE AND STOOL UA pH 5.0 5.0 - 8.0 09/15/2018 [facility] URINE AND STOOL UA Spec Grav 1.037 <=1.030 09/15/2018 [facility] URINE AND STOOL UA Glucose 500 mg/dL Negative mg/dL 09/15/2018 [facility] URINE AND STOOL UA Turbidity Clear (09/15/18 1:10 AM) Clear 09/15/2018 [facility] URINE AND STOOL UA Color Ltyellow 09/15/2018 [facility] RAPID Grp A Strep Scr Negative (09/15/18 12:57 AM) Negative 09/15/2018 [facility] VIRAL - SEROLOGY Influ B Negative (09/15/18 12:57 AM) Negative 09/15/2018 [facility] VIRAL - SEROLOGY Influ A Negative (09/15/18 12:57 AM) Negative 09/15/2018 [facility] CARDIAC ENZYMES Total CK 34 unit/L 12 - 191 09/15/2018 [facility] CARDIAC ENZYMES Troponin-I null 0.00 - 0.40 09/15/2018 [facility] CARDIAC ENZYMES BNP 39 pg/mL <=100 pg/mL 09/15/2018 [facility] CHEM PANEL eGFR 58 mL/min/1.73m2 09/15/2018 Result Comment: The eGFR is calculated using the [...] from the National Kidney Disease Education Program (NKDEP) which additionally recommends that when the eGFR is used in patients with extremes of body mass index for purposes of drug dosing, the eGFR should be multiplied by the estimated BMI. [facility] CHEM PANEL Bili Total 0.3 mg/dL 0.2 - 1.3 09/15/2018 [facility] CHEM PANEL AST 15 unit/L 0 - 37 09/15/2018 [facility] CHEM PANEL Alk Phos 113 unit/L 39 - 136 09/15/2018 [facility] CHEM PANEL ALT 20 unit/L 0 - 65 09/15/2018 [facility] CHEM PANEL Albumin Lvl 3.9 g/dL 3.5 - 5.0 09/15/2018 [facility] CHEM PANEL Total Protein 7.1 g/dL 6.4 - 8.4 09/15/2018 [facility] CHEM PANEL Calcium Lvl 8.9 mg/dL 8.5 - 10.5 09/15/2018 [facility] CHEM PANEL CO2 30 meq/L 24 - 32 09/15/2018 [facility] CHEM PANEL Chloride Lvl 100 meq/L 95 - 109 09/15/2018 [facility] CHEM PANEL Potassium Lvl 3.9 meq/L 3.5 - 5.1 09/15/2018 [facility] CHEM PANEL Sodium Lvl 135 meq/L 135 - 145 09/15/2018 [facility] CHEM PANEL Creatinine Lvl 1.07 mg/dL 0.50 - 1.40 09/15/2018 [facility] CHEM PANEL BUN 15 mg/dL 7 - 22 09/15/2018 [facility] CHEM PANEL Glucose Lvl 351 mg/dL 70 - 99 09/15/2018 [facility] CHEM PANEL Globulin 3.2 g/dL 2.7 - 4.2 09/15/2018 [facility] CHEM PANEL A/G Ratio 1.2 0.7 - 1.6 09/15/2018 [facility] CHEM PANEL B/C Ratio 14 6 - 25 09/15/2018 [facility] CHEM PANEL AGAP 8.9 meq/L 10.0 - 20.0 09/15/2018 [facility] HEMATOLOGY Lymphocytes # 1.7 K/CMM 1.0 - 5.5 09/15/2018 [facility] HEMATOLOGY Monocytes # 0.6 K/CMM 0.0 - 0.8 09/15/2018 [facility] HEMATOLOGY Basophils # 0.1 K/CMM 0.0 - 0.2 09/15/2018 [facility] Large Plt few 09/15/2018 [facility] Basophils 1.4 % 0.0 - 1.0 09/15/2018 [facility] Neutrophils # 4.6 K/CMM 1.5 - 8.1 09/15/2018 [facility] RBC Morph Normal (09/14/18 10:43 PM) 09/15/2018 [facility] Monocytes 8.7 % 2.0 - 12.0 09/15/2018 [facility] Lymphocytes 23.8 % 20.0 - 40.0 09/15/2018 [facility] Segs 66.1 % 45.0 - 75.0 09/15/2018 [facility] MCHC 33.1 g/dL 32.0 - 36.0 09/15/2018 [facility] RDW 12.9 % 11.5 - 14.5 09/15/2018 [facility] MPV 12.5 fL 7.4 - 10.4 09/15/2018 [facility] Platelet 164 K/CMM 133 - 450 09/15/2018 [facility] MCH 31.0 pg 27.0 - 31.0 09/15/2018 [facility] WBC 6.9 K/CMM 3.7 - 10.4 09/15/2018 [facility] RBC 3.95 M/CMM 4.20 - 5.40 09/15/2018 [facility] Hgb 12.3 g/dL 12.0 - 16.0 09/15/2018 [facility] Hct 37.0 % 36.0 - 48.0 09/15/2018 [facility] MCV 93.6 fL 80.0 - 98.0 09/15/2018 [facility] Chest 1view DX Chest 1view DX Clinical Indication: Chest pain - chest pain Comparison: 08/15/2017 FINDINGS: AP chest radiograph was obtained. MEDIASTINUM: The cardiac silhouette is normal in size. The aorta is unremarkable. LUNGS: Lung volumes are maintained. There are no focal infiltrates or effusions. There are no pneumothoraces noted. BONES: The visualized osseous structures are unremarkable. IMPRESSION: No acute infiltrates or effusions. SL: [id number] 09/14/2018 - - Read by: Jair Landaverde MD Dictated Date/time: 09/15/18 00:15 Electronically Signed by: Jair Landaverde MD 09/15/18 00:15 FINAL REPORT [facility] BACTERIAL - SEROLOGY MRSA by PCR Negative (08/16/17 2:52 AM) 08/16/2017 [facility] URINE AND STOOL UA Urobilinogen <=1.0 mg/dL 0.1 - 1.0 08/16/2017 [facility] URINE AND STOOL UA Leuk Est Moderate *ABN* (08/16/17 2:52 AM) Negative 08/16/2017 [facility] URINE AND STOOL UA Sq Epi Occasional /LPF Few /LPF 08/16/2017 [facility] URINE AND STOOL UA Nitrite Negative (08/16/17 2:52 AM) Negative 08/16/2017 [facility] URINE AND STOOL UA WBC 13 /HPF 0 - 5 08/16/2017 [facility] URINE AND STOOL UA RBC 19 /HPF 0 - 2 08/16/2017 [facility] URINE AND STOOL UA Mucus Few /LPF None Seen /LPF 08/16/2017 [facility] URINE AND STOOL UA Hyal Cast 3 /LPF 0 - 2 08/16/2017 [facility] URINE AND STOOL UA pH 5.5 5.0 - 8.0 08/16/2017 [facility] URINE AND STOOL UA Glucose Negative mg/dL Negative mg/dL 08/16/2017 [facility] URINE AND STOOL UA Protein 30 mg/dL Negative mg/dL 08/16/2017 [facility] URINE AND STOOL UA Spec Grav 1.023 <=1.030 08/16/2017 [facility] URINE AND STOOL UA Bili Negative *NA* (08/16/17 2:52 AM) Negative 08/16/2017 [facility] URINE AND STOOL UA Blood Small *ABN* (08/16/17 2:52 AM) Negative 08/16/2017 [facility] URINE AND STOOL UA Ketones Negative mg/dL Negative mg/dL 08/16/2017 [facility] URINE AND STOOL UA Color Yellow *NA* (08/16/17 2:52 AM) Yellow 08/16/2017 [facility] URINE AND STOOL UA Turbidity Clear (08/16/17 2:52 AM) Clear 08/16/2017 [facility] HEMATOLOGY INR 1.14 0.85 - 1.17 08/16/2017 [facility] HEMATOLOGY PT 14.6 s 12.0 - 14.7 08/16/2017 [facility] HEMATOLOGY PTT 30.6 s 22.9 - 35.8 08/16/2017 [facility] BLOOD BANK RESULTS Antibody Scrn Negative (08/16/17 1:00 AM) 08/16/2017 [facility] BLOOD BANK RESULTS ABO/Rh O POS 08/16/2017 [facility] HEMATOLOGY Platelet 174 K/CMM 133 - 450 08/16/2017 [facility] HEMATOLOGY RDW 13.2 % 11.5 - 14.5 08/16/2017 [facility] HEMATOLOGY MCHC 33.3 g/dL 32.0 - 36.0 08/16/2017 [facility] HEMATOLOGY MPV 11.2 fL 7.4 - 10.4 08/16/2017 [facility] HEMATOLOGY WBC 9.7 K/CMM 3.7 - 10.4 08/16/2017 [facility] HEMATOLOGY Hct 30.4 % 36.0 - 48.0 08/16/2017 [facility] HEMATOLOGY Hgb 10.1 g/dL 12.0 - 16.0 08/16/2017 [facility] HEMATOLOGY RBC 3.33 M/CMM 4.20 - 5.40 08/16/2017 [facility] HEMATOLOGY MCH 30.3 pg 27.0 - 31.0 08/16/2017 [facility] HEMATOLOGY MCV 91.0 fL 80.0 - 98.0 08/16/2017 [facility] HEMATOLOGY Monocytes 6.5 % 2.0 - 12.0 08/16/2017 [facility] HEMATOLOGY Lymphocytes 14.1 % 20.0 - 40.0 08/16/2017 [facility] HEMATOLOGY Segs 77.9 % 45.0 - 75.0 08/16/2017 [facility] HEMATOLOGY Lymphocytes # 1.4 K/CMM 1.0 - 5.5 08/16/2017 [facility] HEMATOLOGY Segs-Bands # 7.6 K/CMM 1.5 - 8.1 08/16/2017 [facility] HEMATOLOGY Monocytes # 0.6 K/CMM 0.0 - 0.8 08/16/2017 [facility] HEMATOLOGY Basophils # 0.1 K/CMM 0.0 - 0.2 08/16/2017 [facility] HEMATOLOGY Basophils 1.4 % 0.0 - 1.0 08/16/2017 [facility] HEMATOLOGY Eosinophils 0.1 % 0.0 - 4.0 08/16/2017 [facility] CHEM PANEL Lactic Acid Lvl 0.9 mMol/L 0.5 - 2.2 08/16/2017 [facility] ELECTROLYTES AGAP 15.0 meq/L 10.0 - 20.0 08/16/2017 [facility] ELECTROLYTES CO2 24 meq/L 24 - 32 08/16/2017 [facility] ELECTROLYTES Potassium Lvl 4.0 meq/L 3.5 - 5.1 08/16/2017 [facility] ELECTROLYTES Chloride Lvl 104 meq/L 95 - 109 08/16/2017 [facility] ELECTROLYTES Sodium Lvl 139 meq/L 135 - 145 08/16/2017 [facility] ELECTROLYTES eGFR 47 mL/min/1.73m2 08/16/2017 Result Comment: The eGFR is calculated using the [...] from the National Kidney Disease Education Program (NKDEP) which additionally recommends that when the eGFR is used in patients with extremes of body mass index for purposes of drug dosing, the eGFR should be multiplied by the estimated BMI. [facility] ELECTROLYTES Calcium Lvl 8.4 mg/dL 8.5 - 10.5 08/16/2017 [facility] ELECTROLYTES BUN 20 mg/dL 7 - 22 08/16/2017 [facility] ELECTROLYTES Creatinine Lvl 1.28 mg/dL 0.50 - 1.40 08/16/2017 [facility] ELECTROLYTES Glucose Lvl 220 mg/dL 70 - 99 08/16/2017 [facility] Chest 2 views DX Chest 2 views DX Exam: Two-view chest x-ray Reason for Exam: - J44.9 Chronic obstructive pulmonary disease, unspecified Comparison Exam: X-ray 01/05/2017 Discussion: Cardiomediastinal silhouette is within normal limits. Both hemidiaphragms well visualized. No pulmonary edema or pleural effusions. No focal lung consolidations. No emphysematous changes appreciated within the lungs. Trachea is midline. No acute bony abnormalities. Mild multilevel degenerative disc disease seen within the thoracic spine. Impression: 1. No emphysematous changes appreciated within the lungs. If further characterization is warranted, consider dedicated noncontrast high-resolution chest CT. 03/23/2017 - - Read by: Derrek Meyer MD Dictated Date/time: 03/23/17 14:18 Electronically Signed by: Derrek Meyer MD 03/23/17 14:20 FINAL REPORT [facility] Breast Mammo Scrn MANUEL incl CAD MA Breast Mammo Scrn MANUEL incl CAD MA - BREAST MAMMO SCRN MANUEL INCL CAD MA BILATERAL DIGITAL SCREENING MAMMOGRAM WITH CAD: 03/23/2017 CLINICAL: Routine/Screening. Current study was evaluated with a Computer Aided Detection (CAD) system. Comparison is made to exam dated: 05/01/2015 mammogram - [facility]. There are scattered fibroglandular densities in both breasts. No significant masses, calcifications, or other findings are seen in either breast. There has been no significant interval change. IMPRESSION: NEGATIVE There is no mammographic evidence of malignancy. A 1 year screening mammogram is recommended. Professional services are provided by the [facility]. Hermelindo Caceres M.D. cm/penrad:03/24/2017 08:30:14 Hr Coordinator: Lima KAMARA(Asutin)(Lyndsay), [facility] This exam was dictated and interpreted by [id number] for [facility]. letter sent: Normal exam Mammogram BI-RADS: 1 Negative 03/23/2017 - - Read by: Wilber Jones MD Dictated Date/time: 03/24/17 08:30 Electronically Signed by: Wilber Jones MD 03/24/17 08:30 FINAL REPORT [facility] Chest 2 views DX Chest 2 views DX Exam: Two-view chest x-ray Reason for Exam: r05 cough, J45.30 Mild persistent asthma, uncomplicated - r05 cough, J45.30 Mild persistent asthma, uncomplicated Comparison Exam: 07/29/2016 Discussion: Cardiomediastinal silhouette is within normal limits. Both hemidiaphragms well visualized. No pulmonary edema or pleural effusions. No focal lung consolidations. Trachea is midline. No acute bony abnormalities. Impression: 1. No acute cardiopulmonary abnormalities. 01/05/2017 - - Read by: Derrek Meyer MD Dictated Date/time: 01/05/17 14:17 Electronically Signed by: Derrek Meyer MD 01/05/17 14:21 FINAL REPORT [facility] Chest 2 views DX Chest 2 views DX EXAM: PA AND LATERAL CHEST X RAY DATE:- 07/29/2016 2:09 PM FACING END TRIMMER . TECHNIQUE: PA and lateral views of chest COMPARISON: 2015 chest x-ray FINDINGS: The lungs are hyperinflated. There is multifocal left lung airspace disease with consolidative changes in the left lower lobe. This patchy right lung base airspace disease, but this appears stable from previous study. Heart size and mediastinal contours are normal. There is no acute bony abnormality. IMPRESSION: 1. Multifocal left lung airspace disease most in keeping with pneumonia. Repeat chest x-ray approximately one month after appropriate treatment recommended to ensure resolution of the pulmonary opacities. 2. Patchy right lung base airspace disease likely represents scarring given stability compared to previous study 07/29/2016 - - Read by: Rigoberto Fernandes MD Dictated Date/time: 07/29/16 14:16 Electronically Signed by: Rigoberto Fernandes MD 07/29/16 14:18 FINAL REPORT [facility] Hip 2/3 views uni DX Hip 2/3 views uni DX EXAMINATION: Right hip minimum 2 views HISTORY: Right hip pain status post fall; right hip osteoarthritis FINDINGS: Frontal and frog leg lateral views of the right hip are performed without comparison. There is no fracture or dislocation. The femoral head is well-seated within the acetabulum. There is moderate right hip osteoarthritis with asymmetric joint space narrowing and extensive osteophyte formation. IMPRESSION: 1. Moderate right hip osteoarthritis. 06/24/2016 - - Read by: Ruslan Murillo MD Dictated Date/time: 06/24/16 13:33 Electronically Signed by: Ruslan Murillo MD 06/24/16 13:35 FINAL REPORT [facility] Chest 2 views DX Chest 2 views DX EXAM: 2 view(s) of the chest. INDICATION: Pneumonia. COMPARISON: Chest x-ray: 02/25/2016. FINDINGS: Support apparatus: None. Cardiac silhouette: Unremarkable. Elisa: Unremarkable. Lobar consolidation: Negative. Pleural effusion: Negative. Pneumothorax: Negative. Other: Stable left midlung linear atelectasis or scarring. Stable hyperinflation. Bones: Unremarkable. Other: None. IMPRESSION: 1. No acute cardiopulmonary process. 03/09/2016 - - Read by: Moses Rios MD Dictated Date/time: 03/09/16 11:50 Electronically Signed by: Moses Rios MD 03/09/16 12:23 FINAL REPORT [facility] Chest 2 views DX Chest 2 views DX Exam: Two-view chest x-ray Reason for Exam: pneumonia Comparison Exam: 02/23/2016 Discussion: Cardiac silhouette is within normal limits for size. No pulmonary edema or pleural effusions. On previous exam, there was description of patchy left upper lobe and lower lobe airspace opacification. On current exam, there is significant interval decrease. Moderate multilevel degenerative disc disease seen within the thoracic spine. Impression: 1. On previous exam, there was description of patchy left upper lobe and lower lobe airspace opacification. On current exam, there is significant interval decrease. 02/25/2016 - - Read by: Derrek Meyer MD Dictated Date/time: 02/25/16 17:38 Electronically Signed by: Derrek Meyer MD 02/25/16 17:39 FINAL REPORT [facility] CHEM PANEL Creatinine Lvl 1.08 mg/dL 0.50 - 1.40 02/23/2016 [facility] CHEM PANEL eGFR 58 mL/min/1.73m2 02/23/2016 Result Comment: The eGFR is calculated using the [...] from the National Kidney Disease Education Program (NKDEP) which additionally recommends that when the eGFR is used in patients with extremes of body mass index for purposes of drug dosing, the eGFR should be multiplied by the estimated BMI. [facility] HEMATOLOGY PTT 30.3 s 22.9 - 35.8 02/23/2016 [facility] HEMATOLOGY Platelet 142 K/CMM 133 - 450 02/23/2016 [facility] CHEM PANEL Lactic Acid Lvl 1.1 mMol/L 0.5 - 2.2 02/23/2016 [facility] CARDIAC ENZYMES CK MB Index 2.7 0.0 - 2.5 02/23/2016 [facility] CARDIAC ENZYMES CK MB 1.5 ng/mL 0.5 - 3.6 02/23/2016 [facility] CARDIAC ENZYMES Total CK 56 unit/L 12 - 191 02/23/2016 [facility] CARDIAC ENZYMES Troponin-I null 0.00 - 0.40 02/23/2016 [facility] ELECTROLYTES AGAP 12.2 meq/L 10.0 - 20.0 02/23/2016 [facility] ELECTROLYTES Globulin 4.3 g/dL 2.0 - 4.0 02/23/2016 [facility] ELECTROLYTES A/G Ratio 0.7 0.7 - 1.6 02/23/2016 [facility] ELECTROLYTES Calcium Lvl 8.7 mg/dL 8.5 - 10.5 02/23/2016 [facility] ELECTROLYTES Albumin Lvl 3.2 g/dL 3.5 - 5.0 02/23/2016 [facility] ELECTROLYTES Bili Total 0.2 mg/dL 0.2 - 1.3 02/23/2016 [facility] ELECTROLYTES ALT 20 unit/L 0 - 65 02/23/2016 [facility] ELECTROLYTES AST 12 unit/L 0 - 37 02/23/2016 [facility] ELECTROLYTES Alk Phos 123 unit/L 39 - 136 02/23/2016 [facility] ELECTROLYTES B/C Ratio 19 6 - 25 02/23/2016 [facility] ELECTROLYTES Potassium Lvl 4.2 meq/L 3.5 - 5.1 02/23/2016 [facility] ELECTROLYTES Chloride Lvl 104 meq/L 95 - 109 02/23/2016 [facility] ELECTROLYTES CO2 28 meq/L 24 - 32 02/23/2016 [facility] ELECTROLYTES Total Protein 7.5 g/dL 6.4 - 8.4 02/23/2016 [facility] ELECTROLYTES eGFR 54 mL/min/1.73m2 02/23/2016 Result Comment: The eGFR is calculated using the [...] from the National Kidney Disease Education Program (NKDEP) which additionally recommends that when the eGFR is used in patients with extremes of body mass index for purposes of drug dosing, the eGFR should be multiplied by the estimated BMI. [facility] ELECTROLYTES BUN 22 mg/dL 7 - 22 02/23/2016 [facility] ELECTROLYTES Glucose Lvl 192 mg/dL 70 - 99 02/23/2016 [facility] ELECTROLYTES Sodium Lvl 140 meq/L 135 - 145 02/23/2016 [facility] ELECTROLYTES Creatinine Lvl 1.16 mg/dL 0.50 - 1.40 02/23/2016 [facility] Basophils # 0.2 K/CMM 0.0 - 0.2 02/23/2016 [facility] Segs 81.2 % 45.0 - 75.0 02/23/2016 [facility] RBC Morph Normal (02/23/16 10:15 AM) 02/23/2016 [facility] Plt Morph Normal (02/23/16 10:15 AM) 02/23/2016 [facility] Lymphocytes 9.1 % 20.0 - 40.0 02/23/2016 [facility] Basophils 1.1 % 0.0 - 1.0 02/23/2016 [facility] Monocytes 7.8 % 2.0 - 12.0 02/23/2016 [facility] Segs-Bands # 12.3 K/CMM 1.5 - 8.1 02/23/2016 [facility] Eosinophils 0.8 % 0.0 - 4.0 02/23/2016 [facility] Monocytes # 1.2 K/CMM 0.0 - 0.8 02/23/2016 [facility] Large Plt Slight 02/23/2016 [facility] Eosinophils # 0.1 K/CMM 0.0 - 0.5 02/23/2016 [facility] Lymphocytes # 1.4 K/CMM 1.0 - 5.5 02/23/2016 [facility] MCHC 31.5 g/dL 32.0 - 36.0 02/23/2016 [facility] RDW 14.2 % 11.5 - 14.5 02/23/2016 [facility] WBC 15.2 K/CMM 3.7 - 10.4 02/23/2016 [facility] Hgb 10.3 g/dL 12.0 - 16.0 02/23/2016 [facility] RBC 3.54 M/CMM 4.20 - 5.40 02/23/2016 [facility] MCV 92.6 fL 80.0 - 98.0 02/23/2016 [facility] Hct 32.8 % 36.0 - 48.0 02/23/2016 [facility] MCH 29.1 pg 27.0 - 31.0 02/23/2016 [facility] MPV 12.5 fL 7.4 - 10.4 02/23/2016 [facility] Platelet 166 K/CMM 133 - 450 02/23/2016 [facility] Chest 1view DX Chest 1view DX EXAM: Chest 1view DX DATE: 02/23/2016 10:13 AM CDT INDICATION: Dyspnea COMPARISON: None. IMPRESSION: Mildly enlarged cardiac silhouette. Atherosclerotic thoracic aorta. The lungs are hyperexpanded. Extensive patchy left upper lobe and lower lobe opacities are present. Please correlate for pneumonia. Small left pleural effusion may be present. Right lung is clear. SL: [id number] 02/23/2016 - - Read by: Robbin Andrews MD Dictated Date/time: 02/23/16 10:25 Electronically Signed by: Robbin Andrews MD 02/23/16 10:26 FINAL REPORT [facility] Wrist complete DX Wrist complete DX CLINICAL HISTORY: contusion right wrist AGE: 55 years GENDER: Female TECHNIQUE: Right wrist radiographs, 3 views. COMPARISON: None FINDINGS: There is no evidence of fracture or dislocation. Osseous mineralization is within normal limits. Mild degenerative changes seen in the 1st MCP and CMC joints. No cortical or erosion or periosteal reaction. There is no significant widening of the scapholunate or lunotriquetral intervals. IMPRESSION: No evidence of fracture or dislocation. Mild degenerative changes of the 1st CMC and MCP joints 12/17/2015 - - Read by: Hollis Siegel MD Dictated Date/time: 12/17/15 12:11 Electronically Signed by: Hollis Siegel MD 12/17/15 12:14 FINAL REPORT [facility] Foot series DX Foot series DX Exam: Left foot x-ray, 3 views Reason for Exam: Pain Comparison Exam: None available Discussion: No acute fracture lines seen within the left foot. 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 Note is made of a linear string-like radiopaque foreign body measuring 5 mm seen within the plantar surface of the foot at the level of the second proximal phalanx. No suspicious osteoblastic or osteolytic lesions. Impression: 1. No acute fracture lines seen within the left foot. 2. Linear string-like radiopaque foreign body measuring 5 mm seen within the plantar surface of the foot at the level of the second proximal phalanx. 05/09/2015 - - Read by: Derrek Meyer MD Dictated Date/time: 05/09/15 11:28 Electronically Signed by: Derrek Meyer MD 05/09/15 11:30 FINAL REPORT [facility] Breast Limited Manuel US Breast Limited Manuel US - BREAST LIMITED MANUEL US ULTRASOUND OF BOTH BREASTS: 05/09/2015 CLINICAL: Nipple Discharge. Comparison is made to exam dated: 05/01/2015 mammogram - [facility]. Color flow and real-time ultrasound of both breasts were performed in the subareolar region. Epperson scale images of the real-time examination were reviewed. IMPRESSION: BENIGN There is no sonographic evidence of malignancy. A 1 year screening mammogram is recommended. Dr. Derrek Meyer M.D. sl/:05/09/2015 09:46:37 Hr Coordinator: Anjana Fernandez, [facility] This exam was dictated and interpreted by [id number] for [facility]. letter sent: Bilateral Benign Ultrasound BI-RADS: 2 Benign 05/09/2015 - - Read by: Derrek Meyer MD Dictated Date/time: 05/09/15 09:46 Electronically Signed by: Derrek Meyer MD 05/09/15 09:46 FINAL REPORT [facility] Digital Mammo DX Manuel MA Digital Mammo DX Manuel MA - DIGITAL MAMMO DX MANUEL MA BILATERAL DIGITAL DIAGNOSTIC MAMMOGRAM WITH CAD: 05/01/2015 CLINICAL: Nipple Discharge. Current study was evaluated with a Computer Aided Detection (CAD) system. No prior exams were available for comparison. There are scattered fibroglandular densities in both breasts. No significant masses, calcifications, or other findings are seen in either breast. IMPRESSION: INCOMPLETE: NEEDS ADDITIONAL IMAGING EVALUATION There is no mammographic abnormality seen in either breast to correspond with the non-bloody discharge from the nipple. Patient was not able to complete the ultrasound portion of the exam. Immediate follow up with bilateral targeted ultrasounds recommended. Dr. Derrek Meyer M.D. sl/:05/01/2015 16:47:08 Hr Coordinator: Azul Green, [facility] This exam was dictated and interpreted by [id number] for [place]. letter sent: Followup Mammogram BI-RADS: 0 Indeterminate 05/01/2015 - - Read by: Derrek Meyer MD Dictated Date/time: 05/01/15 16:47 Electronically Signed by: Derrek Meyer MD 05/01/15 16:47 FINAL REPORT [facility] Spine lumbar series DX Spine lumbar series DX Exam: Lumbar Spine X-ray, 5 views Reason for Exam: Back Pain Comparison Exam: None Discussion: 5 non rib-bearing lumbar vertebral bodies are seen. Mild chronic appearing compression deformity seen involving the L2 vertebral body. No scoliosis or spondylolisthesis. Facet joint arthropathy seen within the lower lumbar spine. Scattered degenerative disease seen within the lumbar spine. No suspicious osteoblastic or osteolytic lesions. Note that a lumbar spine x-ray cannot rule out ligamentous injuries or spinal cord abnormalities. No dilated loops of bowel within the visualized portions of the abdomen and pelvis. Impression: 1. Mild chronic appearing compression deformity seen involving the L2 vertebral body. No scoliosis or spondylolisthesis. Facet joint arthropathy seen within the lower lumbar spine. Scattered degenerative disease seen within the lumbar spine. 04/19/2015 - - Read by: Derrek Meyer MD Dictated Date/time: 04/19/15 14:49 Electronically Signed by: Derrek Meyer MD 04/19/15 14:51 FINAL REPORT [facility] Vital Signs Vital Sign Value Date Comments Source Weight 76.273 09/15/2018 [facility] Systolic (mm Hg) 142 09/15/2018 [facility] Diastolic (mm Hg) 56 09/15/2018 [facility] Heart Rate 73 09/15/2018 [facility] Respitory Rate 19 09/15/2018 [facility] Temperature Oral (F) 97.7 F 09/15/2018 [facility] Respitory Rate 22 09/15/2018 [facility] Heart Rate 81 09/15/2018 [facility] Temperature Oral (F) 98.1 F 09/15/2018 [facility] Systolic (mm Hg) 150 09/15/2018 [facility] Diastolic (mm Hg) 78 09/15/2018 [facility] Height 172.72 cm 09/15/2018 [facility] Weight 77.273 09/15/2018 [facility] BMI Calculated 25.9 09/15/2018 [facility] Systolic (mm Hg) 150 09/15/2018 [facility] Diastolic (mm Hg) 70 09/15/2018 [facility] Respitory Rate 28 09/15/2018 [facility] Temperature Oral (F) 98.2 F 09/15/2018 [facility] BMI Calculated 26.68 09/15/2018 [facility] Weight 77.273 09/15/2018 [facility] Height 170.18 cm 09/15/2018 [facility] Heart Rate 72 09/15/2018 [facility] Heart Rate 83 08/17/2017 [facility] Temperature Oral (F) 97.9 F 08/17/2017 [facility] Respitory Rate 18 08/17/2017 [facility] Systolic (mm Hg) 106 08/17/2017 [facility] Diastolic (mm Hg) 77 08/17/2017 [facility] Heart Rate 101 08/17/2017 [facility] Respitory Rate 18 08/17/2017 [facility] Temperature Oral (F) 97.3 F 08/17/2017 [facility] Systolic (mm Hg) 102 08/17/2017 [facility] Diastolic (mm Hg) 65 08/17/2017 [facility] Temperature Oral (F) 98.1 F 08/17/2017 [facility] Systolic (mm Hg) 119 08/17/2017 [facility] Diastolic (mm Hg) 67 08/17/2017 [facility] Respitory Rate 16 08/17/2017 [facility] Height 170.18 cm 08/16/2017 [facility] Weight 79.1 08/16/2017 [facility] BMI Calculated 27.31 08/16/2017 [facility] Height 172.72 cm 08/16/2017 [facility] BMI Calculated 24.68 08/16/2017 [facility] Weight 73.636 08/16/2017 [facility] Heart Rate 85 08/16/2017 [facility] Systolic (mm Hg) 109 02/24/2016 [facility] Diastolic (mm Hg) 68 02/24/2016 [facility] Respitory Rate 18 02/24/2016 [facility] Heart Rate 79 02/24/2016 [facility] Temperature Oral (F) 99.1 F 02/24/2016 [facility] Systolic (mm Hg) 126 02/24/2016 [facility] Diastolic (mm Hg) 67 02/24/2016 [facility] Temperature Oral (F) 97.7 F 02/24/2016 [facility] Heart Rate 64 02/24/2016 [facility] Respitory Rate 18 02/24/2016 [facility] Respitory Rate 18 02/24/2016 [facility] Temperature Oral (F) 97.9 F 02/24/2016 [facility] Heart Rate 69 02/24/2016 [facility] Systolic (mm Hg) 107 02/24/2016 [facility] Diastolic (mm Hg) 63 02/24/2016 [facility] Weight 70.909 02/23/2016 [facility] BMI Calculated 23.77 02/23/2016 [facility] Height 172.72 cm 02/23/2016 [facility] Weight 71.364 02/23/2016 [facility] Height 172.72 cm 02/23/2016 [facility] BMI Calculated 23.92 02/23/2016 [facility] Respitory Rate 30 12/19/2015 [facility] Respitory Rate 24 12/19/2015 [facility] Systolic (mm Hg) 104 12/19/2015 [facility] Diastolic (mm Hg) 79 12/19/2015 [facility] Systolic (mm Hg) 113 12/19/2015 [facility] Diastolic (mm Hg) 78 12/19/2015 [facility] Systolic (mm Hg) 123 12/19/2015 [facility] Diastolic (mm Hg) 61 12/19/2015 [facility] Respitory Rate 18 12/19/2015 [facility] Weight 70.455 12/19/2015 [facility] BMI Calculated 23.62 12/19/2015 [facility] Height 172.72 cm 12/19/2015 [facility] Encounters Location Location Details Encounter Type Encounter Number Reason For Visit Attending Provider ADM Date DC Date Status Source [facility] [place] [facility] [id number] Fredy Veronica 01/11/2015 01/12/2015 SRINIVAS Soliz [facility] [place] [facility] [id number] Fredy Veronica 04/19/2015 04/20/2015 [facility] [place] [facility] [place] [facility] [id number] Fredy Veronica 05/01/2015 05/02/2015 [facility] [place] [facility] [place] [facility] [id number] Fredy Veronica 05/09/2015 05/10/2015 [facility] [place] [facility] [place] [facility] [id number] Fredy Veronica 12/17/2015 12/18/2015 [facility] [place] [facility] Bedded Outpatient [id number] Taiwo Tijerina 12/19/2015 12/19/2015 [facility] Inpatient [id number] Maulik Chappell 02/23/2016 02/24/2016 [facility] [place] [facility] [id number] Fredy Veronica 02/25/2016 02/26/2016 [facility] [place] [facility] [place] [facility] [id number] Fredy Real 03/09/2016 03/10/2016 [facility] [place] [facility] [place] [facility] [id number] Alessandra Timmons 06/24/2016 06/25/2016 [facility] [place] [facility] [place] [facility] [id number] Alessandra Timmons 07/29/2016 07/30/2016 [facility] [place] [facility] [place] [facility] [id number] Alessandra Timmons 01/05/2017 01/06/2017 [facility] [place] [facility] [place] [facility] [id number] Fredy Real 03/23/2017 03/24/2017 [facility] [place] [facility] Inpatient [id number] Gus Bran 08/16/2017 08/17/2017 [facility] - [place] [facility] [id number] Fredy Veronica 11/10/2017 11/10/2017 [facility] [place] [facility] Observation [id number] Jak Gainesdavian 09/15/2018 09/15/2018 [facility] Procedures Procedure Code Date Perfomer Comments Source section [id number] [facility] [place] Cholecystectomy [id number] [facility] [place] Partitioning of stomach using renata [id number] [facility] [place] section [id number] [facility] Cholecystectomy [id number] [facility] Partitioning of stomach using renata [id number] [facility] section [id number] [facility] Cholecystectomy [id number] [facility] Partitioning of stomach using renata [id number] [facility]
--- OUTSIDE RECORDS SUMMARY | 2018-12-27 08:54 | XMS REPORT | Summary of Care ---
Author Organization Unknown Address Unknown Phone Unavailable Encounter [facility] Encntr_alias(FIN) [id number] Date(s): 01/11/15 - 01/11/15 [facility] - [place] [address] [place] [address] [phone] Discharge Disposition: Home Physician Attending: Fredy Veronica MD Vital Signs No data available for this section Problem List No data available for this section Allergies, Adverse Reactions, Alerts No data available for this section Medications No data available for this section Results No data available for this section Immunizations No data available for this section Procedures No data available for this section Social History No data available for this section Assessment and Plan No data available for this section
--- OUTSIDE RECORDS SUMMARY | 2018-12-27 08:54 | XMS REPORT | Summary of Care ---
Author Author [facility] [place] Organization [facility] [place] Address Unknown Phone Unavailable Encounter HQ Opal_denver(FIN) [id number] Date(s): 06/24/16 - 06/24/16 [facility] [place] [address] [place] [phone] Discharge Disposition: Home or Self Care Attending [...]
--- OUTSIDE RECORDS SUMMARY | 2018-12-27 08:54 | XMS REPORT | Summary of Care ---
Author Author [facility] Organization [facility] Address Unknown Phone Unavailable Encounter HQ Deepti(CARL) [id number] Date(s): 09/14/18 - 09/15/18 [facility] [address] [place] [address]- Discharge Disposition: Home or Self Care Attending Physician: Jak Dumont MD Admitting Physician: Jak Dumont MD Vital Signs 1 2 3 Most recent to oldest [Reference Range]: 172.72 cm (09/15/18 6:12 AM) 170.18 cm (09/14/18 9:36 PM) Height 97.7 DegF (09/15/18 11:15 AM) 98.1 DegF (09/15/18 7:39 AM) 98.2 DegF (09/15/18 4:24 AM) Temperature Oral [96.4-99.1 DegF] 142/56 mmHg *HI* (09/15/18 11:15 AM) 150/78 mmHg *HI* (09/15/18 7:39 AM) 150/70 mmHg *HI* (09/15/18 4:46 AM) Blood Pressure [90-140/60-90 mmHg] 19 BRMIN (09/15/18 11:15 AM) 22 BRMIN *HI* (09/15/18 7:39 AM) 28 BRMIN *HI* (09/15/18 4:46 AM) Respiratory Rate [14-20 BRMIN] 73 bpm (09/15/18 11:15 AM) 81 bpm (09/15/18 7:39 AM) 72 bpm (09/14/18 9:36 PM) Peripheral Pulse Rate [60-100 bpm] 76.273 kg (09/15/18 1:15 PM) 77.273 kg (09/15/18 6:12 AM) 77.273 kg (09/14/18 9:36 PM) Weight 25.9 m2 (09/15/18 6:12 AM) 26.68 m2 (09/14/18 9:36 PM) Body Mass Index Problem List Condition Effective Dates Status Health Status Informant Apnea, Resolved sleep(Confirmed) Asthma(Confirmed) Resolved Bipolar(Confirmed) Resolved COPD(Confirmed) Resolved Depression(Confirmed Resolved ) Diabetes(Confirmed) Resolved GERD Resolved (gastroesophageal reflux disease)(Confirmed) Heart Resolved attack(Confirmed) HLD Resolved (hyperlipidemia)(Con firmed) Allergies, Adverse Reactions, Alerts Substance Reaction Severity Status penicillins ITCHING Mild Active Medications acetaminophen-hydrocodone 325 mg-5 mg oral tablet 1 tab, Route: PO, Drug Form: TAB, Dosing Weight 77.273, kg, Q4H, PRN Pain Score 4-6, Start date: 09/15/18 6:00:00 [employer], Duration: 30 day, Stop date: 10/15/18 5:5 9:00 [employer] Notes: (Same as: [place] 325/5) Do not exceed 4gm/day of acetaminophen. Start Date: 09/15/18 Stop Date: 09/15/18 Status: Discontinued ARIPiprazole 10 mg oral tablet 10 mg=1 tab, PO, Daily, # 30 tab, 0 Refill(s) Start Date: 09/15/18 Status: Ordered aspirin 325 mg tablet 325 mg, 1 tab, Route: PO, Drug form: TAB, Q24H, Dosing Weight 77.273, kg, Start date: 09/15/18 9:00:00 [employer], Duration: 30 day, Stop date: 10/14/18 9:00:00 [employer] E[employer]IST Notes: Take with food. Start Date: 09/15/18 Stop Date: 09/15/18 Status: Discontinued aspirin 81 mg tablet, chewable 324 mg, Route: PO, Drug form: CHEWTAB, ONCE, Dosing Weight 77.273, kg, Priority: STAT, Start date: 09/15/18 2:41:00 [employer], Stop date: 09/15/18 2:41:00 [employer] E[employer]IST Start Date: 09/15/18 Stop Date: 09/15/18 Status: Completed Combivent inhalation aerosol with adapter 2 puff, INHALER, QID, # 14 gm, 0 Refill(s) Start Date: 09/15/18 Status: Ordered Dextrose 50% Syringe 25 gm, 50 mL, Route: IVP, Drug Form: INJ, Dosing Weight 77.273, kg, PRN, PRN Blo od Glucose Results, Start date: 09/15/18 6:58:00 [employer], Duration: 30 day, Stop jason e: 10/15/18 6:57:00 [employer] E[employer] Start Date: 09/15/18 Stop Date: 09/15/18 Status: Discontinued Dextrose 50% Syringe 12.5 gm, 25 mL, Route: IVP, Drug Form: INJ, Dosing Weight 77.273, kg, PRN, PRN B lood Glucose Results, Start date: 09/15/18 6:58:00 [employer], Duration: 30 day, Stop d ate: 10/15/18 6:57:00 [employer] E[employer] Start Date: 09/15/18 Stop Date: 09/15/18 Status: Discontinued glucagon 1 mg, Route: IM, Drug form: PDR/INJ, PRN, Dosing Weight 77.273, kg, PRN Blood Gl ucose Results, Start date: 09/15/18 6:58:00 [employer] E[employer]IST, Duration: 30 day, Stop date: 6:57:00 [employer] E[employer]IST Start Date: 09/15/18 Stop Date: 09/15/18 Status: Discontinued hydrALAZINE 10 mg, Route: IV, ONCE, Dosing Weight 77.273, kg, Start date: 09/15/18 2:59:[address], Stop date: 09/15/18 2:59:00 [employer] E[employer]IST Start Date: 09/15/18 Stop Date: 09/15/18 Status: Completed insulin lispro 10 unit, 0.1 mL, Route: SUB-Q, Drug form: SOLN, TID-Before Meals, Dosing Weight 77.273, kg, PRN Blood Glucose Results, Start date: 09/15/18 6:58:00 [employer] E[employer], Duratio n: 30 day, Stop date: 10/15/18 6:57:00 [employer]AND E[employer]OMIST Notes: (Same as: Humalog ) Roll in palms of hands gently; Do not shake `vigorou sly. "Single Patient Use Only " WASTE: F/P - Black; E - [employer] [address] able for 28 days at room temperature.Expires in days from Da te Start Date: 09/15/18 Stop Date: 09/15/18 Status: Discontinued insulin lispro 4 unit, 0.04 mL, Route: SUB-Q, Drug form: SOLN, TID-Before Meals, Dosing Weight 77.273, kg, PRN Blood Glucose Results, Start date: 09/15/18 6:58:00 L[employer] E[employer]OMIST, Duratio n: 30 day, Stop date: 10/15/18 6:57:00 LAND ECONOMIST Notes: (Same as: Humalog ) Roll in palms of hands gently; Do not shake `vigorou sly. "Single Patient Use Only " WASTE: F/P - Black; E - [facility] [address] able for 28 days at room temperature.Expires in days from Da te Start Date: 09/15/18 Stop Date: 09/15/18 Status: Discontinued insulin lispro 8 unit, 0.08 mL, Route: SUB-Q, Drug form: SOLN, TID-Before Meals, Dosing Weight 77.273, kg, PRN Blood Glucose Results, Start date: 09/15/18 6:58:00 L[employer] E[employer]IST, Duratio n: 30 day, Stop date: 10/15/18 6:57:00 L[employer] ECONOMIST Notes: (Same as: Humalog ) Roll in palms of hands gently; Do not shake `vigorou sly. "Single Patient Use Only " WASTE: F/P - Black; E - [facility] [address] able for 28 days at room temperature.Expires in days from Da te Start Date: 09/15/18 Stop Date: 09/15/18 Status: Discontinued insulin lispro 6 unit, 0.06 mL, Route: SUB-Q, Drug form: SOLN, TID-Before Meals, Dosing Weight 77.273, kg, PRN Blood Glucose Results, Start date: 09/15/18 6:58:00 L[employer] E[employer]IST, Duratio n: 30 day, Stop date: 10/15/18 6:57:00 LAND ECONOMIST Notes: (Same as: Humalog ) Roll in palms of hands gently; Do not shake `vigorou sly. "Single Patient Use Only " WASTE: F/P - Black; E - [facility] [address] able for 28 days at room temperature.Expires in days from Da te Start Date: 09/15/18 Stop Date: 09/15/18 Status: Discontinued insulin lispro 2 unit, 0.02 mL, Route: SUB-Q, Drug form: SOLN, TID-Before Meals, Dosing Weight 77.273, kg, PRN Blood Glucose Results, Start date: 09/15/18 6:58:00 LAND ECONOMIST, Duratio n: 30 day, Stop date: 10/15/18 6:57:00 LAND ECONOMIST Notes: (Same as: Humalog ) Roll in palms of hands gently; Do not shake `vigorou sly. "Single Patient Use Only " WASTE: F/P - Black; E - [facility] [address] able for 28 days at room temperature.Expires in days from Da te Start Date: 09/15/18 Stop Date: 09/15/18 Status: Discontinued lamoTRIgine 100 mg, PO, Bedtime, 0 Refill(s) Start Date: 09/15/18 Status: Ordered meloxicam 15 mg oral tablet 15 mg=1 tab, PO, Daily, # 30 tab, 0 Refill(s) Start Date: 09/15/18 Status: Ordered morphine Sulfate 2 mg, 1 mL, Route: IVP, Drug form: SOLN, Q2H, Dosing Weight 77.273, kg, PRN Pain Score 4-6, Start date: 09/15/18 6:00:00 [employer], Duration: 30 day, Stop date: 10/15 5:59:00 [employer] E[employer]IST Start Date: 09/15/18 Stop Date: 09/15/18 Status: Discontinued nitroglycerin SL Tab 0.4 mg, 1 tab, Route: SL, Drug form: TAB, Q5Min, Dosing Weight 77.273, kg, PRN C hest Pain, Start date: 09/15/18 6:00:00 [employer] E[employer]IST, Duration: 3 doses or times, Stop da te: Limited # of times Notes: (Same as:MelecioquLidia jonestat)"Do Not Crush" Sublingual tablet Start Date: 09/15/18 Stop Date: 09/15/18 Status: Discontinued rosuvastatin 10 mg oral tablet 10 mg=1 tab, PO, Bedtime, # 30 tab, 0 Refill(s) Start Date: 09/15/18 Status: Ordered Saline Flush 0.9% 10 ml, Route: IVP, Drug Form: INJ, Dosing Weight 77.273, kg, Q12H, Start date: 0 09/15/18 9:00:00 [employer], Duration: 30 day, Stop date: 10/14/18 21:00:00 [employer] E[employer]IST Notes: (Same as: BD Posiflush) Start Date: 09/15/18 Stop Date: 09/15/18 Status: Discontinued Saline Flush 0.9% 10 ml, Route: IVP, Drug Form: INJ, Dosing Weight 77.273, kg, PRN, PRN Line Flush , Start date: 09/15/18 6:00:00 L[employer] E[employer]OMIST, Duration: 30 day, Stop date: 10/15/18 5:59:0 0 [employer] ECONOMIST Notes: (Same as: BD Posiflush) Start Date: 09/15/18 Stop Date: 09/15/18 Status: Discontinued Saline Flush 0.9% 10 mL, Route: IVP, Drug Form: INJ, Dosing Weight 79.1, kg, PRN, PRN Line Flush, Start date: 09/14/18 21:37:00 LAND ECONOMIST, Duration: 30 day, Stop date: 10/14/18 21:36:0 0 [employer] ECONOMIST Notes: (Same as: BD Posiflush) Start Date: 09/14/18 Stop Date: 09/15/18 Status: Discontinued Sodium Chloride 0.9% IV 1,000 mL + M.V.I.-12 10 mL Daily + folic acid IV 1 mg Da sujatha + thiamine IV 1 1,000 mL, Rate: 100 ml/hr, Infuse over: 10 hr, Route: IV, Dosing Weight 77.273 k g, Total Volume: 1,000, Start date: 09/15/18 6:00:00 L[employer] E[employer]OMIST, Duration: 3 day, Stop date: 09/18/18 5:59:00 LAND E[employer]OMIST, 1.93, m2 Start Date: 09/15/18 Stop Date: 09/15/18 Status: Discontinued sucralfate 1 g oral tablet 1 gm=1 tab, PO, QID, # 28 tab, 0 Refill(s) Start Date: 09/15/18 Stop Date: 09/22/18 Status: Ordered sucralfate 1 g oral tablet 1 gm=1 tab, PO, QID, # 40 tab, 0 Refill(s) Start Date: 09/15/18 Stop Date: 09/25/18 Status: Ordered Trelegy Ellipta inhalation powder =1 puff, INHALATION, Daily, 0 Refill(s) Start Date: 09/15/18 Status: Ordered venlafaxine 75 mg, PO, Daily, 0 Refill(s) Start Date: 09/15/18 Status: Ordered Results ELECTROLYTES 1 2 3 Most recent to oldest [Reference Range]: 138 mEq/L (09/15/18 6:46 AM) 135 mEq/L (09/14/18 10:43 PM) Sodium Lvl [135-145 mEq/L] 3.7 mEq/L (09/15/18 6:46 AM) 3.9 mEq/L (09/14/18 10:43 PM) Potassium Lvl [3.5-5.1 mEq/L] 104 mEq/L (09/15/18 6:46 AM) 100 mEq/L (09/14/18 10:43 PM) Chloride Lvl [95-109 mEq/L] 30 mEq/L (09/15/18 6:46 AM) 30 mEq/L (09/14/18 10:43 PM) CO2 [24-32 mEq/L] 7.7 mEq/L *LOW* (09/15/18 6:46 AM) 8.9 mEq/L *LOW* (09/14/18 10:43 PM) AGAP [10.0-20.0 mEq/L] CHEM PANEL 1 2 3 Most recent to oldest [Reference Range]: 0.86 mg/dL (09/15/18 6:46 AM) 1.07 mg/dL (09/14/18 10:43 PM) Creatinine Lvl [0.50-1.40 mg/dL] 75 mL/min/1.73m2 1 *NA* (09/15/18 6:46 AM) 58 mL/min/1.73m2 2 *NA* (09/14/18 10:43 PM) eGFR 15 mg/dL (09/15/18 6:46 AM) 15 mg/dL (09/14/18 10:43 PM) BUN [7-22 mg/dL] 14 (09/14/18 10:43 PM) B/C Ratio [6-25] 252 mg/dL *HI* (09/15/18 6:46 AM) 351 mg/dL *HI* (09/14/18 10:43 PM) Glucose Lvl [70-99 mg/dL] 7.1 g/dL (09/14/18 10:43 PM) Total Protein [6.4-8.4 g/dL] 3.9 g/dL (09/14/18 10:43 PM) Albumin Lvl [3.5-5.0 g/dL] 3.2 g/dL (09/14/18 10:43 PM) Globulin [2.7-4.2 g/dL] 1.2 (09/14/18 10:43 PM) A/G Ratio [0.7-1.6] 8.4 mg/dL *LOW* (09/15/18 6:46 AM) 8.9 mg/dL (09/14/18 10:43 PM) Calcium Lvl [8.5-10.5 mg/dL] 20 unit/L (09/14/18 10:43 PM) ALT [0-65 unit/L] 15 unit/L (09/14/18 10:43 PM) AST [0-37 unit/L] 113 unit/L (09/14/18 10:43 PM) Alk Phos [39-136 unit/L] 0.3 mg/dL (09/14/18 10:43 PM) Bili Total [0.2-1.3 mg/dL] 1Result Comment: The eGFR is calculated using [...] be mul tiplied by the estimated BMI. 2Result Comment: The eGFR is calculated using the [...] be mul tiplied by the estimated BMI. CARDIAC ENZYMES 1 2 3 Most recent to oldest [Reference Range]: 34 unit/L (09/14/18 10:43 PM) Total CK [12-191 unit/L] 0.02 ng/mL (09/15/18 10:25 AM) 0.02 ng/mL (09/15/18 6:46 AM) <0.02 ng/mL (09/14/18 10:43 PM) Troponin-I [0.00-0.40 ng/mL] 39 pg/mL (09/14/18 10:43 PM) BNP [<=100 pg/mL] URINE AND STOOL 1 2 3 Most recent to oldest [Reference Range]: Clear (09/15/18 1:10 AM) UA Turbidity [Clear] Ltyellow *NA* (09/15/18 1:10 AM) UA Color 5.0 (09/15/18 1:10 AM) UA pH [5.0-8.0] 1.037 *HI* (09/15/18 1:10 AM) UA Spec Grav [<=1.030] 500 mg/dL *ABN* (09/15/18 1:10 AM) UA Glucose [Negative mg/dL] Negative (09/15/18 1:10 AM) UA Blood [Negative] Negative *NA* (09/15/18 1:10 AM) UA Ketones [Negative] Negative (09/15/18 1:10 AM) UA Protein [Negative] <=1.0 mg/dL *NA* (09/15/18 1:10 AM) UA Urobilinogen [0.1-1.0 mg/dL] Negative *NA* (09/15/18 1:10 AM) UA Bili [Negative] Negative (09/15/18 1:10 AM) UA Leuk Est [Negative] Negative (09/15/18 1:10 AM) UA Nitrite [Negative] 1 /HPF (09/15/18 1:10 AM) UA WBC [0-5 /HPF] 1 /HPF (09/15/18 1:10 AM) UA RBC [0-2 /HPF] Occasional /HPF *NA* (09/15/18 1:10 AM) UA Bacteria [None Seen /HPF] Occasional /LPF *NA* (09/15/18 1:10 AM) UA Sq Epi [Few /LPF] HEMATOLOGY 1 2 3 Most recent to oldest [Reference Range]: 8.1 K/CMM (09/15/18 6:46 AM) 6.9 K/CMM (09/14/18 10:43 PM) WBC [3.7-10.4 K/CMM] 3.53 M/CMM *LOW* (09/15/18 6:46 AM) 3.95 M/CMM *LOW* (09/14/18 10:43 PM) RBC [4.20-5.40 M/CMM] 11.0 g/dL *LOW* (09/15/18 6:46 AM) 12.3 g/dL (09/14/18 10:43 PM) Hgb [12.0-16.0 g/dL] 32.5 % *LOW* (09/15/18 6:46 AM) 37.0 % (09/14/18 10:43 PM) Hct [36.0-48.0 %] 92.1 fL (09/15/18 6:46 AM) 93.6 fL (09/14/18 10:43 PM) MCV [80.0-98.0 fL] 31.1 pg *HI* (09/15/18 6:46 AM) 31.0 pg (09/14/18 10:43 PM) MCH [27.0-31.0 pg] 33.8 g/dL (09/15/18 6:46 AM) 33.1 g/dL (09/14/18 10:43 PM) MCHC [32.0-36.0 g/dL] 12.8 % (09/15/18 6:46 AM) 12.9 % (09/14/18 10:43 PM) RDW [11.5-14.5 %] 11.2 fL *HI* (09/15/18 6:46 AM) 12.5 fL *HI* (09/14/18 10:43 PM) MPV [7.4-10.4 fL] 155 K/CMM (09/15/18 6:46 AM) 164 K/CMM (09/14/18 10:43 PM) Platelet [133-450 K/CMM] 61.2 % (09/15/18 6:46 AM) 66.1 % (09/14/18 10:43 PM) Segs [45.0-75.0 %] 26.3 % (09/15/18 6:46 AM) 23.8 % (09/14/18 10:43 PM) Lymphocytes [20.0-40.0 %] 11.2 % (09/15/18 6:46 AM) 8.7 % (09/14/18 10:43 PM) Monocytes [2.0-12.0 %] 1.3 % *HI* (09/15/18 6:46 AM) 1.4 % *HI* (09/14/18 10:43 PM) Basophils [0.0-1.0 %] 5.0 K/CMM (09/15/18 6:46 AM) 4.6 K/CMM (09/14/18 10:43 PM) Neutrophils # [1.5-8.1 K/CMM] 2.1 K/CMM (09/15/18 6:46 AM) 1.7 K/CMM (09/14/18 10:43 PM) Lymphocytes # [1.0-5.5 K/CMM] 0.9 K/CMM *HI* (09/15/18 6:46 AM) 0.6 K/CMM (09/14/18 10:43 PM) Monocytes # [0.0-0.8 K/CMM] 0.1 K/CMM (09/15/18 6:46 AM) 0.1 K/CMM (09/14/18 10:43 PM) Basophils # [0.0-0.2 K/CMM] Normal (09/15/18 6:46 AM) Normal (09/14/18 10:43 PM) RBC Morph Moderate *ABN* (09/15/18 6:46 AM) Large Plt [None Seen] few *NA* (09/14/18 10:43 PM) Large Plt RAPID 1 2 3 Most recent to oldest [Reference Range]: Negative (09/15/18 12:57 AM) Grp A Strep Scr [Negative] VIRAL - SEROLOGY 1 2 3 Most recent to oldest [Reference Range]: Negative (09/15/18 12:57 AM) Influ A [Negative] Negative (09/15/18 12:57 AM) Influ B [Negative] Immunizations No data available for this section Procedures Procedure Date Related Diagnosis Body Site Status section Completed Cholecystectomy Completed Partitioning of stomach using renata Completed Social History Social History Type Response Substance Abuse Use: Current. Type: Marijuana. Alcohol Past Smoking Status Former smoker; Exposure to Tobacco Smoke None; Cigarette Smoking Last 365 Days Yes; Reg Smoking Cessation Counseling No; Other Tobacco Frequency quit 3 weeks; entered on: 09/15/18 Assessment and Plan Extracted from: Title: Discharge Summary * Author: Jak Dumont MD Date: 09/15/18 Discharge Information Disposition to home Condition stable Medications: See med reconciliation form Diet: Heart healthy
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
--- OUTSIDE RECORDS SUMMARY | 2018-12-27 08:54 | XMS REPORT | Summary of Care ---
Author Author [facility] [place] Organization [facility] [place] Address Unknown Phone Unavailable Encounter HQ Opal_denver(FIN) [id number] Date(s): 07/29/16 - 07/29/16 [facility] [place] [address] [phone] Discharge Disposition: Home or Self Care Attending [...]
--- OUTSIDE RECORDS SUMMARY | 2018-12-27 08:54 | XMS REPORT | Summary of Care ---
Author Author [facility] [place] Organization [facility] [place] Address Unknown Phone Unavailable Encounter HQ Opal_denver(FIN) [id number] Date(s): 03/09/16 - 03/09/16 [facility] [place] [address] [phone] Discharge Disposition: Home or Self Care Attending [...]
--- OUTSIDE RECORDS SUMMARY | 2018-12-27 08:54 | XMS REPORT | Summary of Care ---
Author Author [facility] [place] Organization [facility] [place] Address Unknown Phone Unavailable Encounter HQ Encntr_alias(FIN) [id number] Date(s): 04/19/15 - 04/19/15 [facility] [place] [address] [place], [place] [address] [phone] Discharge Disposition: Home Attending Physician: Fredy Veronica MD Vital Signs [...]
--- OUTSIDE RECORDS SUMMARY | 2018-12-27 08:54 | XMS REPORT | Summary of Care ---
Author Author [facility] [place] Organization [facility] [place] Address Unknown Phone Unavailable Encounter HQ Smithr_denver(FIN) [id number] Date(s): 02/25/16 - 02/25/16 [facility] [place] [address] [phone] Discharge Disposition: Home Attending Physician: Fredy Veronica [...]
--- OUTSIDE RECORDS SUMMARY | 2018-12-27 08:54 | XMS REPORT | Summary of Care ---
Author Author [facility] [place] Organization [facility] [place] Address Unknown Phone Unavailable Encounter HQ Encntr_alias(FIN) [id number] Date(s): 05/09/15 - 05/09/15 [facility] [place] [address] [place], [place] [address] [place] [phone] Discharge Disposition: Home Attending Physician: Fredy Veronica [...]
--- OUTSIDE RECORDS SUMMARY | 2018-12-27 08:54 | XMS REPORT | Summary of Care ---
Author Author [facility] Organization [facility] Address Unknown Phone Unavailable Encounter KOBE Tatum(CARL) [id number] Date(s): 12/19/15 - 12/19/15 [facility] [address] [place] [address]- Discharge Disposition: Home Attending Physician: Taiwo Tijerina MD Referring Physician: Taiwo Tijerina MD Vital Signs 1 2 3 Most recent to oldest [Reference Range]: 172.72 cm (12/19/15 3:06 PM) Height 104/79 mmHg (12/19/15 4:15 PM) 113/78 mmHg (12/19/15 4:00 PM) 123/61 mmHg (12/19/15 3:21 PM) Blood Pressure [90-140/60-90 mmHg] 30 BRMIN *HI* (12/19/15 4:30 PM) 24 BRMIN *HI* (12/19/15 4:15 PM) 18 BRMIN (12/19/15 3:21 PM) Respiratory Rate [14-20 BRMIN] 70.455 kg (12/19/15 3:06 PM) Weight 23.62 m2 (12/19/15 3:06 PM) Body Mass Index Problem List Condition Effective Dates Status Health Status Informant Apnea, Resolved sleep(Confirmed) Asthma(Confirmed) Resolved Bipolar(Confirmed) Resolved COPD(Confirmed) Resolved Depression(Confirmed Resolved ) Diabetes(Confirmed) Resolved GERD Resolved (gastroesophageal reflux disease)(Confirmed) Heart Resolved attack(Confirmed) HLD Resolved (hyperlipidemia)(Con firmed) Allergies, Adverse Reactions, Alerts Substance Reaction Severity Status penicillins Active Medications amitriptyline 25 mg oral tablet 25 mg=1 tab, PO, TID, # 270 tab, 0 Refill(s) Start Date: 12/19/15 Status: Ordered Atrovent HFA 2 puff, INHALATION, QID, 0 Refill(s) Start Date: 12/19/15 Status: Ordered FLUoxetine 20 mg oral capsule 20 mg=1 cap, PO, Daily, # 30 cap, 0 Refill(s) Start Date: 12/19/15 Status: Ordered furosemide 40 mg oral tablet 40 mg=1 tab, PO, Daily, # 30 tab, 0 Refill(s) Start Date: 12/19/15 Status: Ordered glimepiride 4 mg oral tablet 4 mg=1 tab, PO, Breakfast, # 30 tab, 0 Refill(s) Start Date: 12/19/15 Status: Ordered Lantus SUB-Q, 0 Refill(s) Start Date: 12/19/15 Status: Ordered lisinopril 20 mg oral tablet 20 mg=1 tab, PO, Daily, # 30 tab, 0 Refill(s) Start Date: 12/19/15 Status: Ordered Lyrica 75 mg oral capsule 75 mg=1 cap, PO, TID, # 90 cap, 0 Refill(s) Start Date: 12/19/15 Status: Ordered pantoprazole 40 mg oral enteric coated tablet 40 mg=1 tab, PO, Daily, # 30 tab, 0 Refill(s) Start Date: 12/19/15 Status: Ordered pravastatin 40 mg oral tablet 40 mg=1 tab, PO, Bedtime, # 30 tab, 0 Refill(s) Start Date: 12/19/15 Status: Ordered Prevacid 30 mg oral delayed release capsule 30 mg, PO, Daily, # 15 cap, 0 Refill(s) Start Date: 12/19/15 Stop Date: 01/03/16 Status: Ordered QUEtiapine 50 mg oral tablet 50 mg=1 tab, PO, BID, # 60 tab, 0 Refill(s) Start Date: 12/19/15 Stop Date: 01/18/16 Status: Ordered Sodium Chloride 0.9% IV 1000 mL 1,000 mL, Rate: 25 ml/hr, Infuse over: 40 hr, Route: IV, Total Volume: 1,000, St art date: 12/19/15 15:05:00 CDT, Duration: 30 day, Stop date: 01/18/16 15:04:00 CDT Start Date: 12/19/15 Stop Date: 12/19/15 Status: Discontinued Sodium Chloride 0.9% IV 1000 mL 1,000 mL, Rate: 25 ml/hr, Infuse over: 40 hr, Route: IV, Dosing Weight 70.455 kg , Total Volume: 1,000, Start date: 12/19/15 15:19:00 CDT, Duration: 30 day, Stop date: 01/18/16 15:18:00 CDT Start Date: 12/19/15 Stop Date: 12/19/15 Status: Discontinued sucralfate 1 g oral tablet 1 gm=1 tab, PO, Before Meals & Bedtime, # 120 tab, 3 Refill(s) Start Date: 12/19/15 Stop Date: 01/18/16 Status: Ordered Symbicort 160/4.5 inhalation aerosol with adapter 2 puff, INHALER, BID, # 1 ea, 3 Refill(s) Start Date: 12/19/15 Status: Ordered Results No data available for this section Immunizations No data available for this section Procedures Procedure Date Related Diagnosis Body Site section Cholecystectomy Partitioning of stomach using renata Social History Social History Type Response Substance Abuse Use: Past. Type: Marijuana. Alcohol Past Smoking Status Former smoker; Exposure to Tobacco Smoke None; Other Tobacco Frequency quit 3 days ago; Cigarette Smoking Last 365 Days Yes; Reg Smoking Cessation Counseling No Assessment and Plan No data available for this section
--- OUTSIDE RECORDS SUMMARY | 2018-12-27 08:54 | XMS REPORT | Summary of Care ---
Author Author [facility] [place] Organization [facility] [place] Address Unknown Phone Unavailable Encounter HQ Encntr_alias(FIN) [id number] Date(s): 05/01/15 - 05/01/15 [facility] [place] [address] [place], [place] [address] [phone] Discharge Disposition: Home Attending Physician: Fredy Veronica [...]
--- OUTSIDE RECORDS SUMMARY | 2018-12-27 08:54 | XMS REPORT | Summary of Care ---
Author Author [facility] [place] Organization [facility] [place] Address Unknown Phone Unavailable Encounter HQ Opal_denver(FIN) [id number] Date(s): 12/17/15 - 12/17/15 [facility] [place] [address] [place], [place] [address] [phone] Discharge Disposition: Home Attending Physician: Fredy Veronica MD Vital Signs No data available for this section Problem List Condition Effective Dates Status Health Status Informant Apnea, Resolved sleep(Confirmed) Asthma(Confirmed) Resolved Bipolar(Confirmed) Resolved COPD(Confirmed) Resolved Depression(Confirmed Resolved ) Diabetes(Confirmed) Resolved GERD Resolved (gastroesophageal reflux disease)(Confirmed) Heart Resolved attack(Confirmed) HLD Resolved (hyperlipidemia)(Con firmed) Allergies, Adverse Reactions, Alerts Substance Reaction Severity Status penicillins Active Medications No data available for this [...]
--- NOTE | 2018-12-27 09:30 | NUR ---
0930 ambulated to #10 for [facility] DR Espana.Identifierx2. Pt on home O2 4lnc and unstable gait. Fall and allergy as well as Id band left hand Prepped in usual fashion for rt radial approach. Denies CP or SOB NO questions main c/o nervousness. Baseline VS stable,sinus biju. Doppler PTx2 DPx2 palpable. Iv started #22 left hand by QUIRINO Stephens attempts previous staff x3.FAmaliy daughter remains at bedside ([phone]). ds/rn
[2018-12-27] MEDS ORDERED: VERAPAMIL HCL 2.5 MG/ML 2 ML VIAL ONE (12:16)
[2018-12-27] MEDS ORDERED: MIDAZOLAM HCL 2 MG/2 ML VIAL ONE ×2 (12:16→13:03)
[2018-12-27] MEDS ORDERED: IOPAMIDOL 370 MG/ML 200 ML INFUS..BTL INJ ONE ×2 (12:17→13:01)
[2018-12-27] MEDS ORDERED: HEPARIN SOD/SOD CHLORIDE 2,000 ML ONE (12:17)
[2018-12-27] MEDS ORDERED: LIDOCAINE HCL 2% LOCAL 20 ML VIAL ONE (12:17)
[2018-12-27] MEDS ORDERED: SODIUM CHLORIDE 0.9% 1000ML 0 ML ONE (12:17)
[2018-12-27] MEDS ORDERED: FENTANYL CITRATE/PF 100MCG/2 ML INJ ONE (12:17)
[2018-12-27] MEDS ORDERED: SODIUM CHLORIDE 0.9% 1000ML 1,000 ML ONE (13:01)
[2018-12-27] MEDS ORDERED: HEPARIN SOD (PORCINE) 1000 UNIT/ML 30ML ONE (13:01)
[2018-12-27] MEDS ORDERED: TICAGRELOR 90 MG TABLET ONE (13:17)
[2018-12-27] MEDS ORDERED: ASPIRIN 325 MG TAB ONE (13:17)
[2018-12-27] MEDS ORDERED: VANCOMYCIN 1GM/NS 250 ML 250 ML ONE (13:20)
--- NOTE | 2018-12-27 13:30 | NUR ---
Received to [facility] lab[facility] recovery room #10. S/P [facility] with RCA PCI. A,A,O x3. Gauze and tegaderm to right groin site C/D/I. Manuel DPs 2+, manuel. PTs present via doppler. 22g IV to Left hand with NS @ KVO and Vancomycin 1gm infusing. Denies pain, no complaints, daughter at bedside.
--- NOTE | 2018-12-27 14:15 | NUR ---
1415 Received pt in Rm #10.Report from Marci Meza .s/p [facility] Dr Espana rt Mynx closure no gross issues with pain pallor pressure or dysrhythmia Monitor sinus biju. RCA stent fix. for dc after 510pm flat time. Family daughter left hospital till then .(Bria cell [phone])Bed requisitionmade.Resp shallow and regular on room air. Abdomen soft and non tender denies necessity to defecate or urinate. Left iv infusing vanc to finish at 125cchr via dial a flow. Site w/o s/s infiltration.Denies CP or SOB tolerating po intake. ds/rn
[2018-12-27] MEDS ORDERED: MORPHINE SULFATE INJ 4 MG/ML INJ 1ML IV PRN (15:00)
--- NOTE | 2018-12-27 15:00 | NUR ---
1500pm Bed #109 received will be ready in 15min. Report to Darron WIN .Pt drifts quickly to sleep. Monitor remain in sinus biju. Obtained Morphine order prn and in Computer for recurrent non relieved pain. No gross signs pain, pallor, bleeding or pressure .Rt groin Mnyx dressing intact. PP intact. ds/rn
--- NOTE | 2018-12-27 15:14 | NUR ---
1515 received bed change to 178 Called report Pt with no gross issues pain pallor,pressure or bleeding to rt Mynx site. ds/rn
--- NOTE | 2018-12-27 15:59 | NUR ---
Recvd patient from Supervisor Stitching Department, AAOX3, Rt Groin incision site pressure dressing is intact, no hematoma or bleeding, on O2 4L NC, not in any distress, call light in reach, bed in lowest position
[2018-12-27] MEDS ORDERED: BRILINTA90 MG PO (17:15)
--- NOTE | 2018-12-27 18:04 | NUR ---
patient discharged home, prescription given, IV canula removed with tip intact, no ss of infiltration, tele box returned. RT GROIN site is intact with pressure dressing, no bleeding or hematoma noted, soft. pedal pulse string and palpable. transported via wheelchair with portable O2 4L NC, not in any distress
--- NOTE | 2018-12-30 01:11 | Operative Report ---
DATE OF PROCEDURE: SURGEON: Gus Espana DO PROCEDURES PERFORMED: 1. Conscious sedation, 60 minutes. 2. Selective coronary angiography x2. 3. Left heart catheterization. 4. Percutaneous coronary intervention of the right coronary artery. PREPROCEDURE DIAGNOSIS: Coronary artery disease with abnormal cardiovascular results. POSTPROCEDURE DIAGNOSIS: Coronary artery disease. ESTIMATED BLOOD LOSS: Less than 20 mL. SPECIMENS REMOVED: None. PROCEDURE IN DETAIL: After informed consent was obtained, the patient was brought to the cardiac catheterization laboratory in a fasting and nonsedated state. Bilateral groins were prepped and draped in the usual sterile fashion. A 2% lidocaine was infiltrated over the right groin for local anesthesia. Using micropuncture needle, the right common femoral artery was accessed via modified Seldinger technique and a 5-Croatian sheath was placed. Next, diagnostic coronary angiography was performed. This revealed significant stenosis of approximately 70% in the mid RCA. The patient received heparin for therapeutic anticoagulation. The lesion was crossed with a Luge wire and pre-dilated with a 2.5 balloon. The lesion was stented with a 2.75 x 20 balloon with excellent postprocedural results. The patient tolerated the procedure well with no immediate complications and transferred back to her room in stable condition. PROCEDURAL FINDINGS: 1. Left main coronary artery is patent without significant disease. 2. Left anterior descending coronary artery has mild luminal and luminal irregularities. 3. Left circumflex coronary artery provides 1 obtuse marginal vessel with diffuse luminal irregularities. 4. The right coronary artery is a dominant vessel and provides posterior descending coronary artery. The mid RCA has a 70% stenosis. 5. Left ventricular end-diastolic pressure was 19 mmHg. INTERVENTION RESULTS: Successful percutaneous coronary intervention of the right coronary artery. Pre-PCI REBEKAH flow was 2. Post-PCI REBEKAH flow was 3. Postprocedure stenosis less than 10%. Gus Espana DO BM/MODL /[id number]
== END 2018-12-27 18:04 | disposition home or self-care (01) ==
LOC: CATH LAB 08:48 → CATH LAB V 14:07 → IMCU 15:37
PROVIDERS: ADMIT Internal Medicine Cardiovascular Disease; ATTEND Internal Medicine Cardiovascular Disease
DX: I25.10 Atherosclerotic heart disease of native coronary artery without angina pectoris (principal); I10 Essential (primary) hypertension; E78.5 Hyperlipidemia, unspecified; E11.9 Type 2 diabetes mellitus without complications; Z72.0 Tobacco use; I25.2 Old myocardial infarction; Z88.0 Allergy status to penicillin; Z79.4 Long term (current) use of insulin; Z01.812 Encounter for preprocedural laboratory examination
CPT/HCPCS: 36415; 80053; 85025; 85610; 92928; 93458; C1725; C1760; C1769 ×2; C1874; C1887; G0378; J1644; J2001; J2250; J2270; J3370; J7030; Q9967

== ENCOUNTER 2019-04-19 13:00 | Outpatient (RCR) | payer MEDICARE, OTHER ==
[~2019-04-19 13:00] MED LIST changes: +BRILINTA90 MG PO
== END 2019-04-22 ==
LOC: RESP 13:00
PROVIDERS: ATTEND Internal Medicine Pulmonary Disease
DX: J44.9 Chronic obstructive pulmonary disease, unspecified (principal); J30.2 Other seasonal allergic rhinitis
CPT/HCPCS: G0238; G0424

== ENCOUNTER 2019-10-02 21:54 | Inpatient (IN) | payer MEDICARE, OTHER ==
[~2019-10-02] VITALS: Ht 172.7 cm; Wt 78.9 kg
[2019-10-02] MEDS ORDERED: LEVOFLOXACIN 750MG/D5W 150ML 150 ML IV SCH (22:07)
[2019-10-02] MEDS ORDERED: SODIUM CHLORIDE 0.9% 1000ML 1,000 ML IV STA (22:07)
[2019-10-02 22:30] LABS: BASOPHILS % 0.2 % (0.0-1.0); EOSINOPHILS % 0.1 % (0.0-6.0); HEMATOCRIT 29.3 % (34.2-44.1); HEMOGLOBIN 9.6 g/dL (12.0-16.0); LYMPHOCYTES # (AUTO) 1.2 (1.0-3.2); LYMPHOCYTES % 5.3 % (18.0-39.1); MEAN CORPUSCULAR HGB CONC 32.8 g/dL (31-35); MEAN CORPUSCULAR VOLUME 88.5 fL (81-99); MONOCYTES # (AUTO) 1.1 (0.2-0.8); MONOCYTES % 5.2 % (4.4-11.3); NEUTROPHILS # (AUTO) 19.5 (2.1-6.9); NEUTROPHILS % 88.3 % (38.7-80.0); PLATELET COUNT 404 x10e3/uL (140-360); RED BLOOD COUNT 3.31 x10e6/uL (3.6-5.1); RED CELL DISTRIBUTION WIDTH 21.7 % (11.7-14.4)
[2019-10-02 22:36] LABS: ABG HCO3 35 mmol/L (23-28); ABG PCO2 57 mmHg (41-51); ABG PO2 275 mmHg (80-105)
[2019-10-02 22:41] LABS: INR 1.05; PROTHROMBIN TIME 14.4 seconds (11.9-14.5)
[2019-10-02 22:42] LABS: PARTIAL THROMBOPLASTIN TIME 25.8 seconds (23.8-35.5)
[2019-10-02 22:51] LABS: ALANINE AMINOTRANSFERASE 9 IU/L (0-55); ALBUMIN 2.9 g/dL (3.5-5.0); ALBUMIN/GLOBULIN RATIO 0.7 (0.8-2.0); ALKALINE PHOSPHATASE 165 IU/L (40-150); ANION GAP 13.8 mmol/L (8-16); BLOOD UREA NITROGEN 25 mg/dL (7-26); BUN/CREATININE RATIO 29 (6-25); CALCIUM 8.7 mg/dL (8.4-10.2); CARBON DIOXIDE 27 mmol/L (22-29); CHLORIDE 95 mmol/L (98-107); CREATINE KINASE 15 IU/L (29-168); CREATININE, SERUM 0.86 mg/dL (0.57-1.11); EST GLOMERULAR FILTRATION RATE > 60 ML/MIN (60-); POTASSIUM 3.8 mmol/L (3.5-5.1); SODIUM 132 mmol/L (136-145)
[2019-10-02 22:56] LABS: B-TYPE NATRIURETIC PEPTIDE2 92.2 pg/mL (0-100)
[2019-10-02 22:58] LABS: CLARITY,URINE CLOUDY (CLEAR); COLOR,URINE YELLOW (YELLOW); LEUKOCYTE ESTERASE ,URINE TRACE (NEGATIVE); NITRITE,URINE NEGATIVE (NEGATIVE)
[2019-10-02 22:59] LABS: BILIRUBIN,URINE NEGATIVE (NEGATIVE); KETONES,URINE NEGATIVE (NEGATIVE); PROTEIN,URINE DIPSTICK NEGATIVE (NEGATIVE); URINE UROBILINOGEN 0.2 mg/dL (0.2 - 1)
--- NOTE | 2019-10-02 23:00 | NUR ---
PT REASSESS, NOW CALM AND ABLE TO MOUTH WORDS, APPROPRIATE, NOT IN ANY DISTRESS, DENIES ANY PAIN OF COMPLAINTS, MOUTHED THAT WAS COLD, OBTAINED 3 WARM BLANKETS FOR PT, PT IS RESTING COMFORTABLY, WILL CONT TO MONITOR
[2019-10-02 23:05] LABS: GLUCOSE 411 mg/dL (74-118)
--- NOTE | 2019-10-02 23:12 | Diagnostic Imaging Report ---
EXAMINATION: CHEST SINGLE (PORTABLE) INDICATION: Dislodged tracheostomy COMPARISON: Chest x-ray 08/08/2018 FINDINGS: TUBES and LINES: Tracheostomy tube projects within the mid trachea. LUNGS: Normal lung volumes. Lungs are clear. No consolidations. Mild pulmonary vascular prominence. PLEURA: No pleural effusion or pneumothorax. HEART AND MEDIASTINUM: The cardiomediastinal silhouette is within normal size limits. Small amount of pneumomediastinum. BONES AND SOFT TISSUES: Degenerative changes in the spine and shoulders. Extensive subcutaneous emphysema in the bilateral chest and base of neck soft tissues. UPPER ABDOMEN: No free air under the diaphragm. IMPRESSION: Pneumomediastinum and extensive subcutaneous emphysema in the bilateral chest and base of neck soft tissues. Mild pulmonary vascular congestion. Signed by: Scout Rivera DO on 10/02/2019 11:09 PM
[2019-10-02 23:20] LABS: BACTERIA,URINE MODERATE /HPF; EPITHELIAL CELLS,URINE MANY /LPF; WBC,URINE (MAN) >50 /HPF (0-5); YEAST,URINE MODERATE
[2019-10-03] VITALS (23 sets, daily range): BP systolic 86–116; BP diastolic 58–69
[2019-10-03] MEDS ORDERED: DEXTROSE 50% SYRINGE 50 ML IV PRN
--- NOTE | 2019-10-03 02:45 | NUR ---
RECEIVED FROM ER VIA STRETCHER. TRACH TO VENT. AWAKE AND ALERT, FOLLOWS COMMANDS. DTI TO SACRUM WITH STAGE 2 TO SACRUM AND STAGE 2 TO RIGHT BUTTOCKS. DTI TO BOTH HEELS Addendum: 10/04/19 at 0509 by Marine Mckinnon RN PATIENT ALSO FROM SNF WITH PICC TO RIGHT UPPER ARM - PRESENT ON ADMISSION. DRESSING C/D/I
[2019-10-03] MEDS ORDERED: TRAMADOL HCL 50 MG TAB GT PRN ×2 (03:45→06:30)
[2019-10-03] MEDS: SODIUM CHLORIDE 0.9% 1000ML 1,000 ML IV SCH ×3 (03:49→21:14)
[2019-10-03] MEDS ORDERED: BROVANA15 MCG/2 M NEB (04:22)
[2019-10-03] MEDS ORDERED: TENORMIN50 MG GT (04:22)
[2019-10-03] MEDS ORDERED: ATORVASTATIN CA20 MG PO (04:22)
[2019-10-03] MEDS ORDERED: AMLODIPINE BESY10 MG GT (04:22)
[2019-10-03] MEDS ORDERED: ASPIR 8181 MG GT (04:22)
[2019-10-03] MEDS ORDERED: FERROUS SULFAT325 MG GT (04:27)
[2019-10-03] MEDS ORDERED: CLOPIDOGREL75 MG GT (04:27)
[2019-10-03] MEDS ORDERED: FAMOTIDINE20 MG GT (04:27)
[2019-10-03] MEDS ORDERED: LANTUS 3ML100 UNITS/ SQ (04:27)
[2019-10-03] MEDS ORDERED: PREDNISONE10 MG GT (04:27)
[2019-10-03] MEDS ORDERED: EFFEXOR XR 3737.5 MG GT (04:27)
[2019-10-03] MEDS ORDERED: BENZONATATE100 MG GT (04:27)
[2019-10-03] MEDS ORDERED: ULTRAM50 MG GT (04:30)
[2019-10-03] MEDS ORDERED: TUMS200 MG GT (04:30)
[2019-10-03] MEDS ORDERED: SINGULAIR10 MG GT (04:30)
[2019-10-03] MEDS ORDERED: ALPRAZOLAM0.25 MG GT (04:30)
[2019-10-03 05:12] LABS: BASOPHILS % 0.1 % (0.0-1.0); EOSINOPHILS # (AUTO) 0.2 (0.0-0.4); EOSINOPHILS % 0.8 % (0.0-6.0); LYMPHOCYTES # (AUTO) 1.4 (1.0-3.2); LYMPHOCYTES % 6.9 % (18.0-39.1); MEAN CORPUSCULAR HEMOGLOBIN 28.8 pg (28-32); MEAN CORPUSCULAR HGB CONC 31.9 g/dL (31-35); MEAN CORPUSCULAR VOLUME 90.4 fL (81-99); MONOCYTES # (AUTO) 1.4 (0.2-0.8); NEUTROPHILS # (AUTO) 17.1 (2.1-6.9); NEUTROPHILS % 84.3 % (38.7-80.0); PLATELET COUNT 319 x10e3/uL (140-360); RED CELL DISTRIBUTION WIDTH 22.1 % (11.7-14.4)
[2019-10-03 05:18] LABS: HEMATOCRIT 22.6 % (34.2-44.1); HEMOGLOBIN 7.2 g/dL (12.0-16.0)
[2019-10-03 05:36] LABS: ANION GAP 10.5 mmol/L (8-16); BLOOD UREA NITROGEN 22 mg/dL (7-26); BUN/CREATININE RATIO 31 (6-25); CALCIUM 7.9 mg/dL (8.4-10.2); CARBON DIOXIDE 28 mmol/L (22-29); CHLORIDE 98 mmol/L (98-107); CREATININE, SERUM 0.72 mg/dL (0.57-1.11); EST GLOMERULAR FILTRATION RATE > 60 ML/MIN (60-); GLUCOSE 223 mg/dL (74-118); POTASSIUM 3.5 mmol/L (3.5-5.1); SODIUM 133 mmol/L (136-145)
--- NOTE | 2019-10-03 05:52 | NUR ---
CALL PLACED TO DR GUZMAN'S ANSWERING SERVICE TO INFORM HIM OF CONSULT
--- NOTE | 2019-10-03 06:00 | NUR ---
H&P PRIMARY CARE PHYSICIAN: Dr. Veronica CHIEF COMPLAINT: dislodged trach HISTORY OF PRESENT ILLNESS: This is a 59-year-old woman, recently d/c from [place] after trach and PEG placed, moved to [facility], now with dislodged trach and O2 desats. Pt did threaten last week that she would pull out the trach if not given water. She was bagged, then trach repositioned and placed in ICU for care. PAST MEDICAL HISTORY: Chr resp failure s/p trach/PEG 09/2019, Severe COPD on 4 L of nasal cannula oxygen at home, asthma, diabetes mellitus, pneumonia, hypertension, bipolar disorder, depression. PAST SURGICAL HISTORY: Cholecystectomy, appendectomy, tonsillectomy, gastric band, trach, PEG ALLERGIES: PER ELECTRONIC MEDICAL RECORD. MEDICATIONS: Per electronic medical record. SOCIAL HISTORY: Patient is single. No alcohol or illicits. She smokes about a pack of cigarettes per day. MEDICATIONS: Per electronic medical record. REVIEW OF SYSTEMS: Denies any headache, chest pain. Denies any leg pain, back pain. Denies any vision changes. PHYSICAL EXAMINATION VITAL SIGNS: Reviewed. GENERAL: A tired-appearing woman resting in bed. HEENT: Anicteric. Trach CARDIOVASCULAR: Normal S1 and S2. LUNGS: Reduced breath sounds throughout. ABDOMEN: Soft, nontender, nondistended. PEG EXTREMITIES: No edema. DTI to heels Sacral ulcer stage 2 SKIN: Dry. PSYCHIATRIC: Normal affect. LABS: Reviewed. MEDICATIONS: Reviewed. ASSESSMENT: This is a 58-year-old man with: Dislodged trach Chr resp failure- O2/vented Sepsis due to UTI- IV azteonam UTI- f/u cx Nicotine dependence- nicotine patch Bipolar d/o MICHELLE- xanax Depression- start venlafaxine DM- check hab1c/lipids; ssi Stage 2 sacral ulcer - LWC Deep tissue injury to heels - LWC Prop: SCD; ppi dispo: cct>35mins Josh Gilliam MD, PhD.
[2019-10-03] MEDS ORDERED: ALPRAZOLAM 0.25 MG TAB PO PRN (06:15)
[2019-10-03] MEDS ORDERED: ONDANSETRON HCL INJ 2MG/ML 2ML 2 MG/ML VIAL IV PRN (06:30)
[2019-10-03] MEDS ORDERED: SENNOSIDES 8.6 MG TAB PO PRN (06:30)
--- NOTE | 2019-10-03 06:35 | NUR ---
DR ROLDAN IN TO SEE PATIENT, NEW ORDERS NOTED
[2019-10-03 06:38] LABS: CHOL/HDL RATIO 2.1 (3.0-3.6)
[2019-10-03] MEDS ORDERED: MORPHINE SULFATE INJ 4 MG/ML INJ 1ML IV PRN ×2 (06:45→10:30)
[2019-10-03] MEDS: ASPIRIN 81 MG CHEW TAB GT SCH (08:05)
[2019-10-03] MEDS: SUCRALFATE 1 GM TAB PO SCH (08:05)
[2019-10-03] MEDS: FERROUS SULFATE 325 MG TAB GT SCH (08:05)
[2019-10-03] MEDS: PANTOPRAZOLE SOD 40 MG TABEC PO SCH (08:06)
[2019-10-03] MEDS: VENLAFAXINE HCL 75 MG CAPCR PO SCH (08:06)
[2019-10-03] MEDS: FAMOTIDINE 20 MG TAB GT SCH ×2 (08:06→17:19)
[2019-10-03] MEDS: NICOTINE 14 MG/EA PATCH TOP SCH (08:06)
[2019-10-03] MEDS: MONTELUKAST SODIUM 10 MG TAB PEG SCH (08:07)
[2019-10-03] MEDS: AZTREONAM 1 GM/NS 50 ML 50 ML IV SCH ×3 (08:07→23:53)
[2019-10-03] MEDS: INSULIN REGULAR, HUMAN 100 UNIT/1 ML 3ML VIAL SQ SCH ×4 (08:12→20:47)
[2019-10-03] MEDS ORDERED: PANTOPRAZOLE SOD 40 MG TABEC PO SCH (09:00)
[2019-10-03 09:35] LABS: LYMPHOCYTES % (MANUAL) 4 % (19-48); MICROCYTOSIS SLIGHT; MONOCYTES % (MANUAL) 7 % (3.4-9.0); NEUTROPHILS % (MANUAL) 89 % (40-74)
[2019-10-03 09:36] LABS: HYPOCHROMASIA SLIGHT; SCHISTOCYTES FEW
[2019-10-03 09:37] LABS: PLATELET ESTIMATE ADEQUATE; PLATELET MORPHOLOGY COMMENT FEW GIANT
--- NOTE | 2019-10-03 11:45 | Diagnostic Imaging Report ---
CT of the chest, without contrast, 10/03/2019. History: Abnormal chest x-ray. Comparison: Chest radiograph dated 10/02/2019. Technique: Multidetector CT scanning of the chest was performed from the level of the thoracic inlet to the upper abdomen without IV or oral contrast. Dose reduction: The examination was performed according to departmental dose-optimization program which includes automated exposure control, adjustment of the mA and/or kV according to patient size and/or use of iterative reconstruction technique. Findings: Tracheostomy cannula is in place and is midline. There is extensive pneumomediastinum and subcutaneous emphysema extending into the chest wall and neck. The heart is within normal limits of size. There is no pericardial effusion. Atherosclerotic coronary artery calcifications are noted. The thoracic aorta is of normal course and caliber. The pulmonary artery is normal in size. Extensive pneumomediastinum limits evaluation for pneumothorax but no definitive pneumothorax is visualized. The trachea and central airways are clear. The lungs demonstrate scattered patchy and groundglass opacities which are nonspecific but may be secondary to edema or atypical infection. There is no pleural effusion. No acute osseous abnormalities are identified. Limited evaluation of the upper abdomen demonstrates no evidence of free intraperitoneal air. No hepatic lesions are identified in the visualized portions of the liver. IMPRESSION: 1. Extensive subcutaneous emphysema involving the bilateral chest wall and neck. Pneumomediastinum is also present. Evaluation for pneumothorax is limited given the extensive subcutaneous emphysema and pneumomediastinum however no definite pneumothorax is visualized. 2. Tracheostomy cannula is appropriately positioned and midline. 2. Scattered nonspecific ground glass and patchy opacities throughout both lungs which may be secondary to edema or atypical infection. Signed by: Paul Joyce MD on 10/03/2019 11:42 AM
--- NOTE | 2019-10-03 12:34 | Consultation ---
DATE OF CONSULTATION: 10/03/2019 Pulmonary Critical Care Consultation REASON FOR CONSULT: Shortness of breath, trach dislodgement. HISTORY OF PRESENT ILLNESS: Ms. Smith is a 59-year-old female, well known to me from prolonged hospital course and admission at [facility]. The patient was admitted with [id number] hypoxic and hypercapnic respiratory failure. She has severe COPD. She remained in ICU on mechanical ventilator at [facility] and intubated at least 3 times. On the third time, she underwent tracheostomy placement. The patient was transferred to [facility] for prolonged weaning. According to the EMS notes, the patient's trach tube was dislodged and despite putting back in the stoma, they were unable to ventilate. She was brought in by EMS with bag-mask valve ventilation. Oxygen saturation was 79% to 80%. Trach tube was replaced and a central line was placed, as the patient's blood pressure was on the lower side as well. She is currently arousable, but sleepy. She has received a dose of Xanax. The trach tube was repositioned by the ER physician and the patient was admitted to ICU. REVIEW OF SYSTEMS: Unable to elicit a detailed review of systems from the patient because she is sleepy and she received Xanax. PAST MEDICAL HISTORY: Chronic respiratory failure, COPD, possible diastolic heart failure. FAMILY AND SOCIAL HISTORY: She currently does not smoke, does not drink. She lives at [facility]. PHYSICAL EXAMINATION: VITAL SIGNS: Temperature 98.6, pulse of 54, blood pressure 102/63, and respiratory rate of 18. The patient is on mechanical ventilator on FiO2 40%. HEENT: Head is atraumatic and normocephalic. She has a tracheostomy, Shiley 8. NECK: Supple. CHEST: Decreased air entry bilaterally. HEART: S1 and S2 audible. ABDOMEN: Soft. EXTREMITIES: No pedal edema. NEUROLOGICAL: She is arousable, but sleepy. LABORATORY DATA: White count of 20,000, hemoglobin 7.2, and platelets 319. Chemistry was within normal limits. Chest x-ray, I reviewed the images showing pneumomediastinum and subcutaneous emphysema. ASSESSMENT/PLAN: Ms. Smith is a 59-year-old female. She came in because trach dislodgement. Difficult trach replacement was done in the emergency room resulting in pneumomediastinum and subcutaneous emphysema. The patient is not in any distress and I do not see any pneumothorax on the chest x-ray. I will do a CT chest without contrast and consult ENT for further evaluation. The patient has leukocytosis and is very high risk of getting pneumonia. The patient agree with aztreonam for now. Oxygen as needed. Blood pressure has been stable so far and the patient has not required any vasopressors. The patient's lactic acid was 2.3 on admission. Possibly kajt-[id number]-caornhir hypoxemia secondary to trach dislodgement and they were not able to ventilate. Thank you for this consult. MD CAROL Chris/MODL /[id number]
[2019-10-03] MEDS: MORPHINE SULFATE 2 MG/ML SYR 1ML IV PRN (13:05)
--- NOTE | 2019-10-03 13:51 | NUR ---
WOUND CARE CONSULT 59 YO MALE HX UTI , TRACH , PNEU FESTUS 16 ON CONSERVATIVE PUP STATUS AND INTERVENTIONS AND ALTERNATING PRESSURE MATTRESS LABS: WBC- 20.29, HGB- 7.2, GLUCOSE- 223,HEM A1C- 8.9 SKIN ASSESSMENT COMPLETE PATIENT PRESENTS WITH STAGE 2 SACRAL ULCERATION .5CMX .5CM X.1CM RIGHT GLUTEAL DTI DARK BLUISH CLOSED AREA 1CMX 1.5CM RIGHT HEEL DTI DARK PURPLE CLOSED BOGGY AREA 4CM X5CM LEFT HEEL DTI CLOSED BLUISH AREA 2.5CM X2CM RECOMMENDATIONS: NURSING TO CONTINUE TO MAINTAIN MODERATE PUP STATUS AND INTERVENTIONS AND ALTERNATING PRESSURE MATTRESS NURSING TO CONTINUE TO ASSIST PATIENT OUT OF BED FOR MEALS AND MUCH TOLERATED NURSING TO CONTINUE TO INSURE PATIENT IS RECEIVING NUTRITIONAL SUPPORT TO PROMOTE SKIN HEALTH AND APPROPRIATE WOUND HEALING NURSING TO CLEAN SACRAL STAGE 2 ULCERATION DAILY WITH NS AND APPLY VENELEX OINTMENT TO WOUND COVER WITH ALLEVYN FOAM DRESSING NURSING TO APPLY VENELEX OINTMENT DAILY TO RIGHT GLUTEAL DTI COVER WITH ALLEVYN FOAM DRESSING NURSING TO APPLY VENELEX OINTMENT DAILY TO RIGHT HEEL DTI COVER WITH ALLEVYN FOAM DRESSING NURSING TO APPLY VENELEX OINTMENT DAILY TO LEFT HEEL DTI COVER WITH ALLEVYN FOAM DRESSING Addendum: 10/03/19 at 1401 by Viktor Bazzi RN Amended: Links added.
--- NOTE | 2019-10-03 18:52 | NUR ---
DR MONTALVO MADE AWARE OF CONSULT. DR GUZMAN UPDATED ON PATIENT CONDITION; DR KAPADIA TO BEDSIDE AND REPOSITIONED THE TRACH TUBE. DAUGHTER, BHANU, UPDATED ON PATIENT CONDITION.
[2019-10-03] MEDS ORDERED: ZOLPIDEM TARTRATE 5 MG TAB PO PRN (21:00)
[2019-10-03] MEDS ORDERED: INSULIN GLARGINE U SQ SCH (21:00)
[2019-10-03] MEDS: ATORVASTATIN 40 MG TAB PO SCH (21:14)
[2019-10-03] MEDS: INSULIN GLARGINE 100 UNITS/ML VIAL SQ SCH (21:20)
[2019-10-04] VITALS (26 sets, daily range): BP systolic 88–134; BP diastolic 50–80
--- NOTE | 2019-10-04 02:03 | Consultation ---
DATE OF CONSULTATION: 10/03/2019 Hospital Consultation HISTORY OF PRESENT ILLNESS: I was kindly asked to see this 59-year-old woman known to me from her recent [facility] admission for evaluation of tracheostomy tube displacement and subcutaneous air at pneumomediastinum. She had a tracheostomy performed by me at [facility] for end-stage COPD and did well in the immediate postoperative. The tracheostomy tube became dislodged and an attempt was made to place a tracheostomy tube. The patient was successfully ventilated through the tracheostomy tube, but developed subcutaneous air in pneumomediastinum. Her history of present illness, past medical history, past surgical history were all reviewed in detail in the chart. On examination, the patient was adequately ventilated. However, the tracheostomy tube was not in proper position. The tube flange was approximately 2 cm away from the skin on bronchoscopy through the tracheostomy tube was noted that the tip of the tracheostomy tube was near the anterior wall of the trachea. There was no granulation tissue noted within the trachea and both mainstem bronchi were unremarkable. The tracheostomy tube was removed. There was noted that the cuff of the tracheostomy tube was in the soft tissue of the neck. A new tracheostomy tube (#8 Shiley IT NETWORK ENGINEER) was then easily placed through the previous tracheostomy tube and easily inserted to position where the flange of the tracheostomy tube was against the skin. Tracheostomy ties were applied and the patient continued to be ventilated well. ASSESSMENT: Dislodged tracheostomy tube with cuff of the tube and the soft tissue of the neck creating the subcutaneous air and they are probably tracking from the neck into the mediastinum, status post replacement of pressure equalization tube in proper place. PLAN: 1. No additional ENT changes at this point. 2. The patient may require an #8 Shiley XLT distal tracheostomy tube if the subcutaneous air does not begin to resolve spontaneously. MD DEBI Lockhart/MODL /[id number]
[2019-10-04] MEDS: MORPHINE SULFATE 2 MG/ML SYR 1ML IV PRN ×2 (05:00→10:51)
[2019-10-04 05:37] LABS: BASOPHILS % 0.3 % (0.0-1.0); EOSINOPHILS # (AUTO) 0.3 (0.0-0.4); EOSINOPHILS % 1.9 % (0.0-6.0); LYMPHOCYTES # (AUTO) 1.5 (1.0-3.2); LYMPHOCYTES % 10.5 % (18.0-39.1); MEAN CORPUSCULAR HEMOGLOBIN 28.9 pg (28-32); MEAN CORPUSCULAR HGB CONC 31.3 g/dL (31-35); MEAN CORPUSCULAR VOLUME 92.6 fL (81-99); MONOCYTES # (AUTO) 1.1 (0.2-0.8); MONOCYTES % 7.9 % (4.4-11.3); NEUTROPHILS # (AUTO) 11.4 (2.1-6.9); NEUTROPHILS % 78.8 % (38.7-80.0); PLATELET COUNT 295 x10e3/uL (140-360); RED BLOOD COUNT 2.42 x10e6/uL (3.6-5.1); RED CELL DISTRIBUTION WIDTH 21.6 % (11.7-14.4)
[2019-10-04 05:44] LABS: HEMATOCRIT 22.4 % (34.2-44.1)
[2019-10-04 06:03] LABS: ALANINE AMINOTRANSFERASE 14 IU/L (0-55); ALBUMIN 2.2 g/dL (3.5-5.0); ALBUMIN/GLOBULIN RATIO 0.7 (0.8-2.0); ALKALINE PHOSPHATASE 144 IU/L (40-150); ANION GAP 11.6 mmol/L (8-16); BLOOD UREA NITROGEN 21 mg/dL (7-26); BUN/CREATININE RATIO 31 (6-25); CALCIUM 7.9 mg/dL (8.4-10.2); CARBON DIOXIDE 26 mmol/L (22-29); CHLORIDE 101 mmol/L (98-107); CREATININE, SERUM 0.67 mg/dL (0.57-1.11); EST GLOMERULAR FILTRATION RATE > 60 ML/MIN (60-); GLUCOSE 101 mg/dL (74-118); POTASSIUM 3.6 mmol/L (3.5-5.1); SODIUM 135 mmol/L (136-145)
--- NOTE | 2019-10-04 06:38 | NUR ---
IM- progress note O/N see below REVIEW OF SYSTEMS: unobtainable PHYSICAL EXAMINATION VITAL SIGNS: Reviewed. GENERAL: A tired-appearing woman resting in bed. HEENT: Anicteric. Trach CARDIOVASCULAR: Normal S1 and S2. LUNGS: Reduced breath sounds throughout. ABDOMEN: Soft, nontender, nondistended. PEG EXTREMITIES: No edema. DTI to heels Sacral ulcer stage 2 SKIN: Dry. PSYCHIATRIC: Normal affect. LABS: Reviewed. MEDICATIONS: Reviewed. ASSESSMENT: This is a 58-year-old man with: Dislodged trach Chr resp failure- O2/vented Sepsis due to UTI- IV azteonam UTI- f/u cx Pneumomediastinum- trach repositioned Nicotine dependence- nicotine patch Bipolar d/o MICHELLE- xanax Depression- start venlafaxine DM- check hab1c/lipids; ssi Stage 2 sacral ulcer - LWC Deep tissue injury to heels - LWC Prop: SCD; ppi dispo: cct>35mins 10/04 cont care; leukocytosis resolving; d/c back to SNF eli Gilliam MD, PhD.
[2019-10-04] MEDS: INSULIN REGULAR, HUMAN 100 UNIT/1 ML 3ML VIAL SQ SCH ×4 (07:30→21:00)
[2019-10-04] MEDS: NICOTINE 14 MG/EA PATCH TOP SCH (08:17)
[2019-10-04] MEDS: SUCRALFATE 1 GM TAB PO SCH (08:17)
[2019-10-04] MEDS: MONTELUKAST SODIUM 10 MG TAB PEG SCH (08:17)
[2019-10-04] MEDS: BALSAM PERU/CASTOR OIL 60 GM OINT...G. TP SCH (08:17)
[2019-10-04] MEDS: PANTOPRAZOLE SOD 40 MG TABEC PO SCH (08:17)
[2019-10-04] MEDS: AZTREONAM 1 GM/NS 50 ML 50 ML IV SCH ×2 (08:17→15:16)
[2019-10-04] MEDS: ASPIRIN 81 MG CHEW TAB GT SCH (08:17)
[2019-10-04] MEDS: VENLAFAXINE HCL 75 MG CAPCR PO SCH (08:17)
[2019-10-04] MEDS: FAMOTIDINE 20 MG TAB GT SCH ×2 (08:17→16:51)
[2019-10-04] MEDS: FERROUS SULFATE 325 MG TAB GT SCH (08:17)
[2019-10-04] MEDS ORDERED: BALSAM PERU/CASTOR OIL 60 GM OINT...G. TP SCH (09:00)
--- NOTE | 2019-10-04 09:06 | NUR ---
Nutrition Intervention Note RD Recommendation(s) for Physician: -TF recommendation via peg when medically feasible: Glucerna 1.2 at 10 ml/hr advance as tolerated to goal rate of 60 ml/hr with 30 ml of water flushed every 4 hours (1728 kcal, 86 gram protein) -IVF management and additional flushes per MD. -Insulin management and BG monitoring per MD. Plan of Care: RD following, monitoring for tolerance and adequacy. TF recommendations. Nutrition reason for involvement: (Peg Tube) RD Assessment 10/04: 59 YOF admitted for UTI with PMH listed below. Per H and P the pt has a trach and peg placed recently. TF recommendations are provided above when medically feasible. There was no family at bedside, spoke to nurse regarding TF recommendations above. Pt was 156 lbs in December of 2018, suggesting no recent weight loss. Pt was observed within the ICU, pt is not on pressor support. Will continue to monitor. Principal Problems/Diagnoses: UTI, trach malposition PMH: Chr resp failure s/p trach/PEG 09/2019, Severe COPD on 4 L of nasal cannula oxygen at home, asthma, diabetes mellitus, pneumonia, hypertension, bipolar disorder, depression. GI: Abd: round, peg tube, LBM: not recorded Skin: Stage 2 sacral ulcer per H and P Deep tissue injury to heels per H and P Labs: 10/04: Na 135, Ca 7.9 Meds: ferrous sulfate, pepcid, insulin, zofran, protonix, senna IVF: NS at 75 ml/hr Ht:68 in Wt: 163 lbs BMI:24.8 kg/m^2 IBW:140 lbs Malnutrition Evaluation (10/04/19) The patient does not meet criteria for a specified degree of malnutrition at this time. Will re-evaluate at follow-up as appropriate. Nutrition Prescription (Diet Order): npo Estimated Nutritional Needs: Calories: 1332-1850kcal/day (18-25 kcal/kg/day) Weight used : CBW (74 kg) Protein : 89-111protein/day (1.2-1.5 gram/kg/day ) Weight used: cbw Diet Adequacy: Not meeting calorie needs, Not meeting protein needs Diet Education Needs Assessment: Diet education not indicated, patient on temporary/transition diet. Nutrition Care Level: mod Nutrition Diagnosis: Inadequate energy intake related to medical condition as evidenced by the pt being NPO and needing peg tube to meet her calorie and protein needs. Goal: Patient will meet 75-100% of estimated needs by follow up Progress: N/A Interventions: Composition, Rate, Route, IVF, Prescription medications Monitoring/Evaluation: -Total energy intake, Total protein intake, Formula/Solution, IVF, Prescription medication Signed: Christine Bond RD, LD
[2019-10-04] MEDS: SODIUM CHLORIDE 0.9% 1000ML 1,000 ML IV SCH (11:14)
--- NOTE | 2019-10-04 17:03 | NUR ---
HEMATOLOGY/ONCOLOGY CONSULT NOTE LATE ENTRY PATIENT SEEN AND EVALUATED 10/03/2019 Reason for consultation: Anemia Chief complaint: Respiratory Distress History of Present Illness: Ms. Smith is a 59 year old female with past medical history of COPD, diabetes mellitus, hypertension, and asthma, who is known to me from initial hospital admission from [facility] to [facility] for respiratory distress 2/2 COPD exacerbation requiring total of 3 intubations with last intubation leading to tracheostomy and PEG tube placement. During her stay, patient required IV antibiotics and remained in ICU with palliative care consulted for hospice discussion. It was decided at that time patient would transition to SNF ([facility]) for tracheostomy weaning on 09/26/2019. Patient has now been transferred to [facility] by EMS after her tracheostomy tube was dislodged and they were unable to ventilate her. In the ED, trach was replaced with CXR revealing pneumomediastinum and subcutaneous emphysema. Patient was transferred to the ICU with hemoglobin dropping from 9.6 to 7.[address] again revealing pneumomediastinum, subcutaneous emphysema, and scattered opacities concerning or infectious process. She was started on IV abx with Pulmonary on board. Hematology/Oncology has been consulted to assist with management, specifically for anemia. Presently, patient is resting with trach in place on vent. Sleepy but arousable. Nurse at bedside. Review of systems: 14 point ROS unable to obtain secondary to patient clinical condition. Allergies: Penicillin Past medical history: COPD, DM, HTN, asthma, possible diastolic HF Past surgical history: Tracheostomy placement, PEG tube placement Social history: Former smoker, no alcohol use currently Physical Exam: Vital Signs: Temperature: 98.4 HR: 56 RR: 13 BP: 96/60 O2: 100% on vent General: NAD Skin: Dry, warm HEENT: NC, AT, EOMI Neck: Supple, trach in place Cardiovascular: Regular rate, regular rhythm Pulmonary: Decreased breath sounds bilaterally, wheezing Abdomen: Soft, NTND, BS x 4 Extremities: Mild BUE edema, no BLE edema, no cyanosis Neurologic: Sleepy, arousable Psychiatric: Cooperative Laboratory/Imagin10/03/2019: WBC: 20.29 Hgb: 7.2 Hct: 22.6 Plt: 319 PT: 14.4 INR: 1.05 BUN: 21 Cr: 0.67 CT Chest 10/03/2019: IMPRESSION: 1. Extensive subcutaneous emphysema involving the bilateral chest wall and neck. Pneumomediastinum is also present. Evaluation for pneumothorax is limited given the extensive subcutaneous emphysema and pneumomediastinum however no definite pneumothorax is visualized. 2. Tracheostomy cannula is appropriately positioned and midline. 2. Scattered nonspecific ground glass and patchy opacities throughout both lungs which may be secondary to edema or atypical infection. CXR 10/02/2019: IMPRESSION: Pneumomediastinum and extensive subcutaneous emphysema in the bilateral chest and base of neck soft tissues. Mild pulmonary vascular congestion. Assessment/Plan: Ms. Smith is a 59 year old female with past medical history of COPD, diabetes mellitus, hypertension, and asthma, who is known to me from initial hospital admission from [facility] to [facility] for respiratory distress 2/2 COPD exacerbation requiring total of 3 intubations with last intubation leading to tracheostomy and PEG tube placement. During her stay, patient required IV antibiotics and remained in ICU with palliative care consulted for hospice discussion. It was decided at that time patient would transition to SNF ([facility]) for tracheostomy weaning on 09/26/2019. Patient has now been transferred to [facility] by EMS after her tracheostomy tube was dislodged and they were unable to ventilate her. In the ED, trach was replaced with CXR revealing pneumomediastinum and subcutaneous emphysema. Patient was transferred to the ICU with hemoglobin dropping from 9.6 to 7.[address] again revealing pneumomediastinum, subcutaneous emphysema, and scattered opacities concerning or infectious process. She was started on IV abx with Pulmonary on board. Hematology/Oncology has been consulted to assist with management, specifically for anemia. 1. Respiratory distress: S/p trach replacement. On vent. ENT consulted. 2. Leukocytosis: Patient is on prophylactic IV antibiotics due to high risk for infection. Pulmonary on board. 3. Anemia: Multifactorial. Likely due to anemia of chronic disease with iron deficiency anemia. Could have component of hemodilution due to IVFs. Hgb drop from 9.6 to 7.2. Continue oral iron. Baseline workup requested. No signs of active bleeding. Transfuse if hgb < 7. Monitor closely. 4. DVT/GI proph: On SCDs. On Protonix. Above plan discussed with Dr. Duckworth. Thank you for the consult. I will be available. Please call with questions.
[2019-10-04] MEDS ORDERED: SODIUM CHLORIDE 0.9% 250ML 250 ML IV NR (17:15)
--- NOTE | 2019-10-04 17:17 | NUR ---
HEMATOLOGY/ONCOLOGY PROGRESS NOTE Reason for consultation: Anemia Chief complaint: Respiratory Distress History of Present Illness: Resting comfortably, remains sleeping yet arousable, discussed with nurse at bedside Review of systems: 14 point ROS unable to obtain secondary to patient clinical condition. Physical Exam: Vital Signs: Temperature: 96.7 HR: 41 RR: 14 BP: 111/58 O2: 100% on vent General: NAD Skin: Dry, warm HEENT: NC, AT, EOMI Neck: Supple, trach in place Cardiovascular: Regular rate, regular rhythm Pulmonary: Decreased breath sounds bilaterally, wheezing Abdomen: Soft, NTND, BS x 4 Extremities: Pitting 2+ BUE edema, trace BLE edema, no cyanosis Neurologic: Sleepy, arousable Psychiatric: Cooperative Laboratory/Imagin10/04/2019: WBC: 14.44 Hgb: 7.0 Hct: 22.4 Plt: 295 PT: 14.4 INR: 1.05 BUN: 21 Cr: 0.67 CT Chest 10/03/2019: IMPRESSION: 1. Extensive subcutaneous emphysema involving the bilateral chest wall and neck. Pneumomediastinum is also present. Evaluation for pneumothorax is limited given the extensive subcutaneous emphysema and pneumomediastinum however no definite pneumothorax is visualized. 2. Tracheostomy cannula is appropriately positioned and midline. 2. Scattered nonspecific ground glass and patchy opacities throughout both lungs which may be secondary to edema or atypical infection. CXR 10/02/2019: IMPRESSION: Pneumomediastinum and extensive subcutaneous emphysema in the bilateral chest and base of neck soft tissues. Mild pulmonary vascular congestion. Assessment/Plan: Ms. Smith is a 59 year old female with past medical history of COPD, diabetes mellitus, hypertension, and asthma, who is known to me from initial hospital admission from [facility] to [facility] for respiratory distress 2/2 COPD exacerbation requiring total of 3 intubations with last intubation leading to tracheostomy and PEG tube placement. During her stay, patient required IV antibiotics and remained in ICU with palliative care consulted for hospice discussion. It was decided at that time patient would transition to SNF ([facility]) for tracheostomy weaning on 09/26/2019. Patient has now been transferred to [facility] by EMS after her tracheostomy tube was dislodged and they were unable to ventilate her. In the ED, trach was replaced with CXR revealing pneumomediastinum and subcutaneous emphysema. Patient was transferred to the ICU with hemoglobin dropping from 9.6 to 7.[address] again revealing pneumomediastinum, subcutaneous emphysema, and scattered opacities concerning or infectious process. She was started on IV abx with Pulmonary on board. Hematology/Oncology has been consulted to assist with management, specifically for anemia. 1. Respiratory distress/COPD: S/p trach replacement due to dislodgement. On vent. CT chest results as above. ENT and Pulm on board. 2. UTI: Urine culture with streptococcus species. Blood culture NGTD. Patient is on IV antibiotics. Afebrile, leukocytosis trending down. Monitor for now. 3. Anemia: Multifactorial. Likely due to anemia of chronic disease with iron deficiency anemia. Could have component of hemodilution due to IVFs. Consider decreasing fluids due to edema noted to BUE. Hgb slightly down, now 7.0. Continue oral iron. Baseline workup requested, pending. No signs of active bleeding. Transfuse 1 unit PRBC today. Monitor closely. 4. DVT/GI proph: On SCDs, consider starting on Lovenox for DVT proph due to immobility. On Pepcid. Above plan discussed with Dr. Duckworth. Thank you for the consult. I will be available. Please call with questions.
[2019-10-04] MEDS ORDERED: ALTEPLASE RECOMBINANT 2 MG/2 ML VIAL ONE ×2 (19:46→23:07)
[2019-10-04] MEDS: ATORVASTATIN 40 MG TAB PO SCH (22:07)
[2019-10-04] MEDS: INSULIN GLARGINE 100 UNITS/ML VIAL SQ SCH (22:16)
[2019-10-05] VITALS (25 sets, daily range): BP systolic 106–138; BP diastolic 52–91
[2019-10-05] LABS: FERRITIN 144.73 ng/mL (4.63-204.00)
[2019-10-05] MEDS: AZTREONAM 1 GM/NS 50 ML 50 ML IV SCH
[2019-10-05] MEDS: MORPHINE SULFATE 2 MG/ML SYR 1ML IV PRN ×2 (01:35→20:13)
[2019-10-05] MEDS ORDERED: SODIUM CHLORIDE 0.9% 50ML 50 ML ONE (03:03)
[2019-10-05] MEDS: ACETAMINOPHEN 325 MG TAB PO PRN (04:09)
--- NOTE | 2019-10-05 06:17 | NUR ---
IM- progress note O/N see below REVIEW OF SYSTEMS: unobtainable PHYSICAL EXAMINATION VITAL SIGNS: Reviewed. GENERAL: A tired-appearing woman resting in bed. HEENT: Anicteric. Trach CARDIOVASCULAR: Normal S1 and S2. LUNGS: Reduced breath sounds throughout. ABDOMEN: Soft, nontender, nondistended. PEG EXTREMITIES: No edema. DTI to heels Sacral ulcer stage 2 SKIN: Dry. PSYCHIATRIC: Normal affect. LABS: Reviewed. MEDICATIONS: Reviewed. ASSESSMENT: This is a 58-year-old man with: Dislodged trach Chr resp failure- O2/vented Sepsis due to UTI- IV azteonam VRE UTI- use linezolid Pneumomediastinum- trach repositioned Nicotine dependence- nicotine patch Bipolar d/o MICHELLE- xanax Depression- start venlafaxine DM- check hab1c/lipids; ssi Stage 2 sacral ulcer - LWC Deep tissue injury to heels - LWC Iron-deficiency anemia- per hematology Prop: SCD; ppi dispo: cct>35mins 10/04 cont care; leukocytosis resolving; 10/05 VRE UTI- change to linezolid. Josh Gilliam MD, PhD.
[2019-10-05] MEDS: INSULIN REGULAR, HUMAN 100 UNIT/1 ML 3ML VIAL SQ SCH ×4 (07:30→20:13)
[2019-10-05] MEDS: MONTELUKAST SODIUM 10 MG TAB PEG SCH (08:06)
[2019-10-05] MEDS: FERROUS SULFATE 325 MG TAB GT SCH (08:06)
[2019-10-05] MEDS: FAMOTIDINE 20 MG TAB GT SCH ×2 (08:06→16:36)
[2019-10-05] MEDS: ASPIRIN 81 MG CHEW TAB GT SCH (08:06)
[2019-10-05] MEDS: VENLAFAXINE HCL 75 MG CAPCR PO SCH (08:06)
[2019-10-05] MEDS: PANTOPRAZOLE SOD 40 MG TABEC PO SCH (08:07)
[2019-10-05] MEDS: LINEZOLID 600 MG TAB PO SCH ×2 (08:07→20:16)
[2019-10-05] MEDS: NICOTINE 14 MG/EA PATCH TOP SCH (08:07)
[2019-10-05] MEDS: BALSAM PERU/CASTOR OIL 60 GM OINT...G. TP SCH (08:07)
[2019-10-05 08:10] LABS: ANION GAP 12.6 mmol/L (8-16); BLOOD UREA NITROGEN 18 mg/dL (7-26); BUN/CREATININE RATIO 30 (6-25); CALCIUM 7.9 mg/dL (8.4-10.2); CARBON DIOXIDE 23 mmol/L (22-29); CHLORIDE 103 mmol/L (98-107); CREATININE, SERUM 0.61 mg/dL (0.57-1.11); EST GLOMERULAR FILTRATION RATE > 60 ML/MIN (60-); GLUCOSE 78 mg/dL (74-118); POTASSIUM 3.6 mmol/L (3.5-5.1); SODIUM 135 mmol/L (136-145)
--- NOTE | 2019-10-05 08:20 | Diagnostic Imaging Report ---
EXAM: CHEST SINGLE (PORTABLE) DATE: 10/05/2019 5:00 AM INDICATION: Subcutaneous emphysema COMPARISON: CT chest from 10/03/2019, chest radiograph from 10/02/2019 FINDINGS: Tracheostomy cannula identified in stable position. Again identified is subcutaneous emphysema and small amount of pneumomediastinum, slightly improved from the prior examination. The lungs are symmetrically expanded without evidence for new large focal consolidation, pneumothorax, or significant pleural effusion. The cardiomediastinal silhouette is stable in appearance. No acute osseous abnormality is identified. IMPRESSION: No significant interval change from 10/02/2019. Slight interval decrease in subcutaneous emphysema and pneumomediastinum. Signed by: Dr. James Valdes MD on 10/05/2019 8:18 AM
[2019-10-05 11:09] LABS: BASOPHILS # (AUTO) 0.1 (0.0-0.1); BASOPHILS % 0.4 % (0.0-1.0); EOSINOPHILS # (AUTO) 0.3 (0.0-0.4); EOSINOPHILS % 2.2 % (0.0-6.0); HEMATOCRIT 27.1 % (34.2-44.1); HEMOGLOBIN 8.7 g/dL (12.0-16.0); LYMPHOCYTES # (AUTO) 1.2 (1.0-3.2); LYMPHOCYTES % 9.9 % (18.0-39.1); MEAN CORPUSCULAR HEMOGLOBIN 29.6 pg (28-32); MEAN CORPUSCULAR HGB CONC 32.1 g/dL (31-35); MEAN CORPUSCULAR VOLUME 92.2 fL (81-99); MONOCYTES % 8.5 % (4.4-11.3); NEUTROPHILS # (AUTO) 9.5 (2.1-6.9); NEUTROPHILS % 78.5 % (38.7-80.0); PLATELET COUNT 282 x10e3/uL (140-360); RED BLOOD COUNT 2.94 x10e6/uL (3.6-5.1); RED CELL DISTRIBUTION WIDTH 18.6 % (11.7-14.4)
--- NOTE | 2019-10-05 14:34 | NUR ---
FAXED CLINICALS TO [facility] FOR REVIEW TO RETURN TO FACILITY, PENDING AUTH COMPLETED RTF AND WILL PUT AT NURSES STATION FOR TRANSFER COMPLETION.
--- NOTE | 2019-10-05 16:42 | NUR ---
AUTH STILL PENDING, FACILITY STATES MOST LIKELY IN MORNING.
[2019-10-05] MEDS: ATORVASTATIN 40 MG TAB PO SCH (20:12)
[2019-10-05] MEDS: INSULIN GLARGINE 100 UNITS/ML VIAL SQ SCH (20:16)
--- NOTE | 2019-10-05 21:58 | Consultation ---
DATE OF CONSULTATION: 10/05/2019 REASON FOR CONSULTATION: VRE. Thank you, Dr. Gilliam, for asking me to see this patient. HISTORY OF PRESENT ILLNESS: The patient is a 59-year-old woman referred for VRE. She was admitted through the emergency department with sepsis, pneumomediastinum, and subcutaneous emphysema. She was transferred from [facility] with respiratory distress from dislodged tracheostomy. Tracheostomy tube was temporarily replaced and chest x-ray showed pneumomediastinum and subcutaneous emphysema. The patient was later evaluated by the ENT and tracheostomy tube was changed. The patient had elevated WBC to 22,000 on presentation, which has quickly dropped. The patient also had urine culture, which grew vancomycin-resistant Enterococcus. She has had a prolonged hospitalization, initially at [facility] and was subsequently transferred to [facility] for rehabilitation. She had indwelling Thorne catheter at [facility], but it is unclear if she had indwelling Thorne catheter at the long term. PAST MEDICAL HISTORY: Chronic obstructive pulmonary disease, chronic respiratory failure, possible diastolic heart failure, acute renal failure. PAST SURGICAL HISTORY: Tracheostomy and PEG tube placement. ALLERGIES: PENICILLIN. MEDICATIONS: See MAR. The current antibiotics are linezolid 600 mg per feeding tube q.12 hours. She received Azactam earlier. IMMUNIZATION: Influenza and pneumococcal vaccination status cannot be verified at this time. FAMILY HISTORY: Noncontributory. SOCIAL HISTORY: She smoked heavily until admission at [facility]. REVIEW OF SYSTEMS: As per history of present illness. The patient feels better and breathing is better at this time. There is no fever, chills, nausea, vomiting, or dysuria. PHYSICAL EXAMINATION: GENERAL: Comfortable on respiratory support. VITAL SIGNS: T-max 98.7, pulse rate 62, respiratory rate 10, blood pressure 118/62, weight 163 pounds. HEENT: Normocephalic. There is no icterus or injection of conjunctiva. There is no ear or nasal discharge. Moist oral mucosa. NECK: Tracheostomy site is clean. LUNGS: Rhonchi bilaterally. HEART: Normal S1 and S2. Bradycardia. ABDOMEN: PEG tube site is clean. Soft and nontender. EXTREMITIES: There is 2+ edema of the lower limbs bilaterally. SKIN: No acute erythema. MARKSMANSHIP INSTRUCTOR: Awake, alert, and oriented to person, place, and time. Nonfocal. LABORATORY AND DIAGNOSTICS: WBC 12,070, hemoglobin 8.7, platelet 282,000, neutrophils 78.5, lymphocytes 9.1, monocytes 8.5, eosinophils 2.2, basophils 0.4. BUN 18 and creatinine 0.61. Blood culture showed no growth. Chest CT scan showed extensive subcutaneous emphysema involving bilateral chest wall and neck. Pneumomediastinum is also present. Chest x-ray showed no significant interval change. IMPRESSION: 1. Leukocytosis, appears to be reactive. 2. Vancomycin-resistant Enterococcus in the urine is most likely colonization. 3. Dislodged tracheostomy. 4. Chronic obstructive pulmonary disease. 5. Respiratory failure. PLAN: 1. Suggest to discontinue antibiotics and monitor. 2. Discharge planning per hospitalist. MD KATHRIN Valdivia/EVIN /[id number] MTDD
[2019-10-06] VITALS (15 sets, daily range): BP systolic 109–139; BP diastolic 59–83
[2019-10-06] MEDS: MORPHINE SULFATE 2 MG/ML SYR 1ML IV PRN (02:09)
--- NOTE | 2019-10-06 06:26 | NUR ---
D/C summary Principal Dx: Dislodged trach Chr resp failure- O2/vented Sepsis due to UTI- IV azteonam VRE UTI- use linezolid Pneumomediastinum- trach repositioned Secondary Dx: Nicotine dependence- nicotine patch Bipolar d/o MICHELLE- xanax Depression- start venlafaxine DM- check hab1c/lipids; ssi Stage 2 sacral ulcer - LWC Deep tissue injury to heels - LWC Iron-deficiency anemia- per hematology Prop: SCD; ppi dispo: cct>35mins 10/04 cont care; leukocytosis resolving; 10/05 VRE UTI- change to linezolid. 10/06 d/c when bed available d/c to SNF stable f/u pcp 1 week and nurse tech tomorrow d/c>35mins Josh Gilliam MD, PhD.
[2019-10-06] MEDS: INSULIN REGULAR, HUMAN 100 UNIT/1 ML 3ML VIAL SQ SCH ×2 (07:27→12:42)
[2019-10-06] MEDS: ASPIRIN 81 MG CHEW TAB GT SCH (08:15)
[2019-10-06] MEDS: FERROUS SULFATE 325 MG TAB GT SCH (08:15)
[2019-10-06] MEDS: FAMOTIDINE 20 MG TAB GT SCH ×2 (08:15→15:46)
[2019-10-06] MEDS: MONTELUKAST SODIUM 10 MG TAB PEG SCH (08:15)
[2019-10-06] MEDS: NICOTINE 14 MG/EA PATCH TOP SCH (08:16)
[2019-10-06] MEDS: PANTOPRAZOLE SOD 40 MG TABEC PO SCH (08:16)
[2019-10-06] MEDS: LINEZOLID 600 MG TAB PO SCH (08:16)
[2019-10-06] MEDS: BALSAM PERU/CASTOR OIL 60 GM OINT...G. TP SCH (08:16)
[2019-10-06] MEDS: ACETAMINOPHEN 325 MG TAB PO PRN ×2 (08:21→15:47)
--- NOTE | 2019-10-06 13:49 | NUR ---
LONGTERM FACILITY DISCHARGE INFORMATION PATIENT HAS BEEN ACCEPTED TO: NAME: [facility] ADDRESS: [id number] ACCEPTING MD:JAMAR ROOM: [id number] NURSE CALL REPORT TO: [phone] IMM SIGNED AND OBTAINED (if applicable): YES THE FOLLOWING DOCUMENTS MUST ACCOMPANY PATIENT FOR TRANSFER: COPIED CHART: PACKET
--- NOTE | 2019-10-06 14:26 | NUR ---
NOTIFIED HOUSE SUPT OF BED AND HAND DELIVERED RTF TO HIM TO COMPLETE THE TRANSFER
[2019-10-06] MEDS ORDERED: VENLAFAXINE HCL 75 MG TAB PO SCH (17:00)
== END 2019-10-06 16:52 | DRG 871 ==
LOC: ER 21:54 → ERHOLD 10-03 01:15 → ICU 10-03 03:10
PROVIDERS: ADMIT Internal Medicine; ATTEND Internal Medicine
PROC: 5A1945Z Respiratory Ventilation, 24-96 Consecutive Hours (ICD-10-PCS; principal; 2019-10-03)
PROC: 02HV33Z Insertion of Infusion Device into Superior Vena Cava, Percutaneous Approach (ICD-10-PCS; 2019-10-03)
PROC: B548ZZA Ultrasonography of Superior Vena Cava, Guidance (ICD-10-PCS; 2019-10-03)
PROC: 0B21XFZ Change Tracheostomy Device in Trachea, External Approach (ICD-10-PCS; 2019-10-03)
DX: A41.9 Sepsis, unspecified organism (principal); J96.21 Acute and chronic respiratory failure with hypoxia; J96.22 Acute and chronic respiratory failure with hypercapnia; J81.0 Acute pulmonary edema; N30.00 Acute cystitis without hematuria; E87.1 Hypo-osmolality and hyponatremia; J95.03 Malfunction of tracheostomy stoma; T79.7XXA Traumatic subcutaneous emphysema, initial encounter; Z16.22 Resistance to vancomycin related antibiotics; F32.2 Major depressive disorder, single episode, severe without psychotic features; L89.616 Pressure-induced deep tissue damage of right heel; L89.302 Pressure ulcer of unspecified buttock, stage 2; R65.20 Severe sepsis without septic shock; Z88.0 Allergy status to penicillin; J44.9 Chronic obstructive pulmonary disease, unspecified; B95.2 Enterococcus as the cause of diseases classified elsewhere; F17.200 Nicotine dependence, unspecified, uncomplicated; F31.9 Bipolar disorder, unspecified; L89.152 Pressure ulcer of sacral region, stage 2; L89.626 Pressure-induced deep tissue damage of left heel; E11.65 Type 2 diabetes mellitus with hyperglycemia; Z79.4 Long term (current) use of insulin
CPT/HCPCS: 36415; 36600; 71045; 71250; 80048; 80053; 80061; 81001; 82550; 82553; 82607; 82728; 82746; 82805; 82948; 83036; 83540; 83605; 83880; 84466; 84484; 85025; 85045; 85610; 85730; 86850; 86900; 86920; 87040; 87086; 87186; 93005; 94002; 94003; 97139; 99284; J1815; J1817; J2270; J2405; J2997; J7030; P9016

== ENCOUNTER → 2020-01-29 | Emergency (ER) | payer MEDICARE, OTHER ==
[~2020-01-29] VITALS: Ht 172.7 cm; Wt 78.9 kg
[~2020-01-29] MED LIST changes: +ACETAMINOPHEN 325 MG SUPP PR ONE; +ALBUTEROL SULF 0.083% NEB SOLN 3 ML NEB NEB STA; +ALBUTEROL SULF 0.083% NEB SOLN 3 ML NEB ONE; +ALPRAZOLAM0.25 MG GT; +AMLODIPINE BESY10 MG GT; +ASPIR 8181 MG GT; +ATORVASTATIN CA20 MG PO; +BENZONATATE100 MG GT; +BROVANA15 MCG/2 M NEB; +CALCIUM CHLORIDE 10% 1.36 MEQ/ML 10ML SYR IV STA; +CLINDAMYCIN 600MG / 50ML 50 ML IV STA; +CLOPIDOGREL75 MG GT; +DEXTROSE 50% SYRINGE 50 ML IV STA; +EFFEXOR XR 3737.5 MG GT; +FAMOTIDINE20 MG GT; +FERROUS SULFAT325 MG GT; +FUROSEMIDE INJ 10 MG/ML 10 ML VIAL IV STA; +FUROSEMIDE INJ 10 MG/ML 2 ML VIAL ONE; +FUROSEMIDE INJ 10 MG/ML 4 ML VIAL ONE; +GENTAMICIN 120MG/NS 100ML 100 ML IV STA; +INSULIN REGULAR, HUMAN 100 UNIT/1 ML 3ML VIAL IV ONE; +LEVOFLOXACIN 750MG/D5W 150ML 150 ML IV STA; +NOREPINEPHRINE INJ 4MG/4ML 8 MG in DEXTROSE 5% 250ML 250 ML IV STA; +PREDNISONE10 MG GT; +PROPOFOL IV EMULSION 50 ML IV ONE; +SINGULAIR10 MG GT; +SOD POLYSTYRENE SULFONATE SUSP 15 GM/60 ML BTL PEG STA; +SOD POLYSTYRENE SULFONATE SUSP 15 GM/60 ML BTL PR ONE; +SODIUM BICARBONATE 8.4% INJ 50 ML SYR IV STA; +SODIUM CHLORIDE 0.9% 1000ML 1,000 ML IV SCH; +SODIUM CHLORIDE 0.9% 1000ML 1,000 ML IV STA; +TENORMIN50 MG GT; +TUMS200 MG GT; +ULTRAM50 MG GT
--- OUTSIDE RECORDS SUMMARY | 2020-01-29 00:56 | XMS REPORT | Summary of Care ---
Author Author [facility] - [facility] Organization [facility] - [facility] Address Unknown Phone Unavailable Encounter HQ [facility](FIN) [id number] Date(s): 05/10/19 - 05/10/19 [facility] Outpatient Imaging - [place] [address] [place] [address] [phone] Encounter Diagnosis Encounter for screening mammogram for malignant neoplasm of breast (Final) - Discharge Disposition: Home or Self Care Attending Physician: Fredy Veronica MD Referring Physician: Fredy Veronica MD Vital Signs No data available for this section Problem List Condition Effective Dates Status Health Status Informan t Apnea, Resolved sleep(Confirmed) Asthma(Confirmed) Resolved Bipolar(Confirmed) Resolved [...] Completed Social History Social History Type Response Alcohol Past Substance Abuse Use: Current. Type: Mariju rachel. Smoking Status Former smoker; Exposure to Tobacco Smoke None; Cigarette Smoking Last 365 Days Yes; Reg Smoking Cessation Hazardous Substances Scientist ing No; Other Tobacco Frequency quit 3 weeks; entered on: 09/15/18 Assessment and Plan No data available for this section
--- OUTSIDE RECORDS SUMMARY | 2020-01-29 00:56 | XMS REPORT | Summary of Care ---
Author Author [facility] Organization [facility] Address Unknown Phone Unavailable Encounter KOBE Tatum(CARL) [id number] Date(s): 09/14/18 - 09/15/18 [facility] [address] [place] [address]- Encounter Diagnosis Other chest pain (Final) - 09/20/18 Type 2 diabetes mellitus without complications (Final) - Chronic obstructive pulmonary disease, unspecified (Final) - Hyperlipidemia, unspecified (Final) - Atherosclerotic heart disease of [place] coronary artery without angina pectoris (Final) - Obstructive sleep apnea (adult) (pediatric) (Final) - Bipolar disorder, unspecified (Final) - Gastro-esophageal reflux disease without esophagitis (Final) - Dependence on supplemental oxygen (Final) - Personal history of nicotine dependence (Final) - longterm (current) use of insulin (Final) - Other termination clerk (current) drug therapy (Final) - Allergy status to penicillin (Final) - Discharge Disposition: Home or Self [...] Pain Score 4-6, Start date: 09/15/18 6:00:00 FRONT DESK SPECIALIST, Duration: 30 day, Stop date: 10/15/18 5:5 9:00 FRONT DESK SPECIALIST Notes: (Same as: [place] 325/5) Do not exceed 4gm/day of acetaminophen. Start Date: 09/15/18 Stop Date: 09/15/18 Status: Discontinued ARIPiprazole 10 mg oral tablet 10 mg = 1 tab, PO, Daily, # 30 tab, 0 Refill(s) Start Date: 09/15/18 Status: Ordered aspirin 325 mg tablet 325 mg, 1 tab, Route: PO, Drug form: TAB, Q24H, Dosing Weight 77.273, kg, Start date: 09/15/18 9:00:00 FRONT DESK SPECIALIST, Duration: 30 day, Stop date: 10/14/18 9:00:00 FRONT DESK SPECIALIST Notes: Take with food. Start Date: 09/15/18 Stop Date: 09/15/18 Status: Discontinued aspirin 81 mg tablet, chewable 324 mg, Route: PO, Drug form: CHEWTAB, ONCE, Dosing Weight 77.273, kg, Priority: STAT, Start date: 09/15/18 2:41:00 FRONT DESK SPECIALIST, Stop date: 09/15/18 2:41:00 FRONT DESK SPECIALIST Start Date: 09/15/18 Stop Date: 09/15/18 Status: Completed Combivent inhalation aerosol with adapter 2 puff, INHALER, QID, # 14 gm, 0 Refill(s) Start Date: 09/15/18 Status: Ordered Dextrose 50% Syringe 25 gm, 50 mL, Route: IVP, Drug Form: INJ, Dosing Weight 77.273, kg, PRN, PRN Blo od Glucose Results, Start date: 09/15/18 6:58:00 FRONT DESK SPECIALIST, Duration: 30 day, Stop jason e: 10/15/18 6:57:00 FRONT DESK SPECIALIST Start Date: 09/15/18 Stop Date: 09/15/18 Status: Discontinued Dextrose 50% Syringe 12.5 gm, 25 mL, Route: IVP, Drug Form: INJ, Dosing Weight 77.273, kg, PRN, PRN B lood Glucose Results, Start date: 09/15/18 6:58:00 FRONT DESK SPECIALIST, Duration: 30 day, Stop d ate: 10/15/18 6:57:00 FRONT DESK SPECIALIST Start Date: 09/15/18 Stop Date: 09/15/18 Status: Discontinued glucagon 1 mg, Route: IM, Drug form: PDR/INJ, PRN, Dosing Weight 77.273, kg, PRN Blood Gl ucose Results, Start date: 09/15/18 6:58:00 FRONT DESK SPECIALIST, Duration: 30 day, Stop date: 6:57:00 FRONT DESK SPECIALIST Start Date: 09/15/18 Stop Date: 09/15/18 Status: Discontinued hydrALAZINE 10 mg, Route: IV, ONCE, Dosing Weight 77.273, kg, Start date: 09/15/18 2:59:[address], Stop date: 09/15/18 2:59:00 FRONT DESK SPECIALIST Start Date: 09/15/18 Stop Date: 09/15/18 Status: Completed insulin lispro 10 unit, 0.1 mL, Route: SUB-Q, Drug form: SOLN, TID-Before Meals, Dosing Weight 77.273, kg, PRN Blood Glucose Results, Start date: 09/15/18 6:58:00 FRONT DESK SPECIALIST, Duratio n: 30 day, Stop date: 10/15/18 6:57:00 FRONT DESK SPECIALIST Notes: (Same as: Humalog ) Roll in [...] Blood Glucose Results, Start date: 09/15/18 6:58:00 FRONT DESK SPECIALIST, Duratio n: 30 day, Stop date: 10/15/18 6:57:00 FRONT DESK SPECIALIST Notes: (Same as: Humalog ) Roll in [...] Blood Glucose Results, Start date: 09/15/18 6:58:00 FRONT DESK SPECIALIST, Duratio n: 30 day, Stop date: 10/15/18 6:57:00 FRONT DESK SPECIALIST Notes: (Same as: Humalog ) Roll in [...] Blood Glucose Results, Start date: 09/15/18 6:58:00 FRONT DESK SPECIALIST, Duratio n: 30 day, Stop date: 10/15/18 6:57:00 FRONT DESK SPECIALIST Notes: (Same as: Humalog ) Roll in [...] Blood Glucose Results, Start date: 09/15/18 6:58:00 FRONT DESK SPECIALIST, Duratio n: 30 day, Stop date: 10/15/18 6:57:00 FRONT DESK SPECIALIST Notes: (Same as: Humalog ) Roll in [...] Ordered meloxicam 15 mg oral tablet 15 mg = 1 tab, PO, Daily, # 30 tab, 0 Refill(s) Start Date: 09/15/18 Status: Ordered morphine Sulfate 2 mg, 1 mL, Route: IVP, Drug form: SOLN, Q2H, Dosing Weight 77.273, kg, PRN Pain Score 4-6, Start date: 09/15/18 6:00:00 FRONT DESK SPECIALIST, Duration: 30 day, Stop date: 10/15 5:59:00 FRONT DESK SPECIALIST Start Date: 09/15/18 Stop Date: 09/15/18 Status: Discontinued nitroglycerin SL Tab 0.4 mg, 1 tab, Route: SL, Drug form: TAB, Q5Min, Dosing Weight 77.273, kg, PRN C hest Pain, Start date: 09/15/18 6:00:00 FRONT DESK SPECIALIST, Duration: 3 doses or times, Stop da te: Limited # of times Notes: (Same as:Nitroquick, Nitrostat)"Do Not Crush" Sublingual tablet Start Date: 09/15/18 Stop Date: 09/15/18 Status: Discontinued rosuvastatin 10 mg oral tablet 10 mg = 1 tab, PO, Bedtime, # 30 tab, 0 Refill(s) Start Date: 09/15/18 Status: Ordered Saline Flush 0.9% 10 ml, Route: IVP, Drug Form: INJ, Dosing Weight 77.273, kg, Q12H, Start date: 0 09/15/18 9:00:00 FRONT DESK SPECIALIST, Duration: 30 day, Stop date: 10/14/18 21:00:00 FRONT DESK SPECIALIST Notes: (Same as: BD Posiflush) Start Date: 09/15/18 Stop Date: 09/15/18 Status: Discontinued Saline Flush 0.9% 10 ml, Route: IVP, Drug Form: INJ, Dosing Weight 77.273, kg, PRN, PRN Line Flush , Start date: 09/15/18 6:00:00 FRONT DESK SPECIALIST, Duration: 30 day, Stop date: 10/15/18 5:59:0 0 FRONT DESK SPECIALIST Notes: (Same as: BD Posiflush) Start Date: 09/15/18 Stop Date: 09/15/18 Status: Discontinued Saline Flush 0.9% 10 mL, Route: IVP, Drug Form: INJ, Dosing Weight 79.1, kg, PRN, PRN Line Flush, Start date: 09/14/18 21:37:00 FRONT DESK SPECIALIST, Duration: 30 day, Stop date: 10/14/18 21:36:0 0 FRONT DESK SPECIALIST Notes: (Same as: BD Posiflush) Start Date: 09/14/18 Stop Date: 09/15/18 Status: Discontinued Sodium Chloride 0.9% IV 1,000 mL + M.V.I.-12 10 mL Daily + folic acid IV 1 mg Da sujatha + thiamine IV 1 1,000 mL, Rate: 100 ml/hr, Infuse over: 10 hr, Route: IV, Dosing Weight 77.273 k g, Total Volume: 1,000, Start date: 09/15/18 6:00:00 FRONT DESK SPECIALIST, Duration: 3 day, Stop date: 09/18/18 5:59:00 FRONT DESK SPECIALIST, 1.93, m2 Start Date: 09/15/18 Stop Date: 09/15/18 Status: Discontinued sucralfate 1 g oral tablet 1 gm = 1 tab, PO, QID, # 28 tab, 0 Refill(s) Start Date: 09/15/18 Stop Date: 09/22/18 Status: Ordered sucralfate 1 g oral tablet 1 gm = 1 tab, PO, QID, # 40 tab, 0 Refill(s) Start Date: 09/15/18 Stop Date: 09/25/18 Status: Ordered Trelegy Ellipta inhalation powder = 1 puff, INHALATION, Daily, 0 Refill(s) Start Date: 09/15/18 Status: Ordered venlafaxine 75 mg, PO, Daily, 0 Refill(s) Start Date: 09/15/18 Status: Ordered Results 1 2 3 Most recent to oldest [Reference Range]: 5.0 K/CMM (09/15/18 6:46 AM) 4.6 K/CMM (09/14/18 10:43 PM) Neutrophils # [1.5-8.1 K/CMM] 2.1 K/CMM (09/15/18 6:46 AM) 1.7 K/CMM (09/14/18 10:43 PM) Lymphocytes # [1.0-5.5 K/CMM] 0.9 K/CMM *HI* (09/15/18 6:46 AM) 0.6 K/CMM (09/14/18 10:43 PM) Monocytes # [0.0-0.8 K/CMM] 0.1 K/CMM (09/15/18 6:46 AM) 0.1 K/CMM (09/14/18 10:43 PM) Basophils # [0.0-0.2 K/CMM] Moderate *ABN* (09/15/18 6:46 AM) Large Plt [None Seen] few *NA* (09/14/18 10:43 PM) Large Plt 39 pg/mL (09/14/18 10:43 PM) BNP [<=100 pg/mL] 75 mL/min/1.73m2 1 *NA* (09/15/18 6:46 AM) 58 mL/min/1.73m2 2 *NA* (09/14/18 10:43 PM) eGFR Negative (09/15/18 12:57 AM) Influ A [Negative] Negative (09/15/18 12:57 AM) Influ B [Negative] 1.2 (09/14/18 10:43 PM) A/G Ratio [0.7-1.6] 3.9 g/dL (09/14/18 10:43 PM) Albumin Lvl [3.5-5.0 g/dL] 113 unit/L (09/14/18 10:43 PM) Alk Phos [39-136 unit/L] 20 unit/L (09/14/18 10:43 PM) ALT [0-65 unit/L] 7.7 mEq/L *LOW* (09/15/18 6:46 AM) 8.9 mEq/L *LOW* (09/14/18 10:43 PM) AGAP [10.0-20.0 mEq/L] 15 unit/L (09/14/18 10:43 PM) AST [0-37 unit/L] 14 (09/14/18 10:43 PM) B/C Ratio [6-25] 1.3 % *HI* (09/15/18 6:46 AM) 1.4 % *HI* (09/14/18 10:43 PM) Basophils [0.0-1.0 %] 15 mg/dL (09/15/18 6:46 AM) 15 mg/dL (09/14/18 10:43 PM) BUN [7-22 mg/dL] 8.4 mg/dL *LOW* (09/15/18 6:46 AM) 8.9 mg/dL (09/14/18 10:43 PM) Calcium Lvl [8.5-10.5 mg/dL] 34 unit/L (09/14/18 10:43 PM) Total CK [12-191 unit/L] 104 mEq/L (09/15/18 6:46 AM) 100 mEq/L (09/14/18 10:43 PM) Chloride Lvl [95-109 mEq/L] 30 mEq/L (09/15/18 6:46 AM) 30 mEq/L (09/14/18 10:43 PM) CO2 [24-32 mEq/L] 0.86 mg/dL (09/15/18 6:46 AM) 1.07 mg/dL (09/14/18 10:43 PM) Creatinine Lvl [0.50-1.40 mg/dL] 3.2 g/dL (09/14/18 10:43 PM) Globulin [2.7-4.2 g/dL] 252 mg/dL *HI* (09/15/18 6:46 AM) 351 mg/dL *HI* (09/14/18 10:43 PM) Glucose Lvl [70-99 mg/dL] 32.5 % *LOW* (09/15/18 6:46 AM) 37.0 % (09/14/18 10:43 PM) Hct [36.0-48.0 %] 11.0 g/dL *LOW* (09/15/18 6:46 AM) 12.3 g/dL (09/14/18 10:43 PM) Hgb [12.0-16.0 g/dL] 3.7 mEq/L (09/15/18 6:46 AM) 3.9 mEq/L (09/14/18 10:43 PM) Potassium Lvl [3.5-5.1 mEq/L] 26.3 % (09/15/18 6:46 AM) 23.8 % (09/14/18 10:43 PM) Lymphocytes [20.0-40.0 %] 31.1 pg *HI* (09/15/18 6:46 AM) 31.0 pg (09/14/18 10:43 PM) MCH [27.0-31.0 pg] 33.8 g/dL (09/15/18 6:46 AM) 33.1 g/dL (09/14/18 10:43 PM) MCHC [32.0-36.0 g/dL] 92.1 fL (09/15/18 6:46 AM) 93.6 fL (09/14/18 10:43 PM) MCV [80.0-98.0 fL] 11.2 % (09/15/18 6:46 AM) 8.7 % (09/14/18 10:43 PM) Monocytes [2.0-12.0 %] 11.2 fL *HI* (09/15/18 6:46 AM) 12.5 fL *HI* (09/14/18 10:43 PM) MPV [7.4-10.4 fL] 138 mEq/L (09/15/18 6:46 AM) 135 mEq/L (09/14/18 10:43 PM) Sodium Lvl [135-145 mEq/L] 155 K/CMM (09/15/18 6:46 AM) 164 K/CMM (09/14/18 10:43 PM) Platelet [133-450 K/CMM] 61.2 % (09/15/18 6:46 AM) 66.1 % (09/14/18 10:43 PM) Segs [45.0-75.0 %] 7.1 g/dL (09/14/18 10:43 PM) Total Protein [6.4-8.4 g/dL] 3.53 M/CMM *LOW* (09/15/18 6:46 AM) 3.95 M/CMM *LOW* (09/14/18 10:43 PM) RBC [4.20-5.40 M/CMM] Normal (09/15/18 6:46 AM) Normal (09/14/18 10:43 PM) RBC Morph 12.8 % (09/15/18 6:46 AM) 12.9 % (09/14/18 10:43 PM) RDW [11.5-14.5 %] Negative (09/15/18 12:57 AM) Grp A Strep Scr [Negative] 0.3 mg/dL (09/14/18 10:43 PM) Bili Total [0.2-1.3 mg/dL] 0.02 ng/mL (09/15/18 10:25 AM) 0.02 ng/mL (09/15/18 6:46 AM) <0.02 ng/mL (09/14/18 10:43 PM) Troponin-I [0.00-0.40 ng/mL] Occasional /HPF *NA* (09/15/18 1:10 AM) UA Bacteria [None Seen /HPF] Negative *NA* (09/15/18 1:10 AM) UA Bili [Negative] Negative (09/15/18 1:10 AM) UA Blood [Negative] Ltyellow *NA* (09/15/18 1:10 AM) UA Color 500 mg/dL *ABN* (09/15/18 1:10 AM) UA Glucose [Negative mg/dL] Negative *NA* (09/15/18 1:10 AM) UA Ketones [Negative] Negative (09/15/18 1:10 AM) UA Leuk Est [Negative] Negative (09/15/18 1:10 AM) UA Nitrite [Negative] 5.0 (09/15/18 1:10 AM) UA pH [5.0-8.0] Negative (09/15/18 1:10 AM) UA Protein [Negative] 1 /HPF (09/15/18 1:10 AM) UA RBC [0-2 /HPF] 1.037 *HI* (09/15/18 1:10 AM) UA Spec Grav [<=1.030] Occasional /LPF *NA* (09/15/18 1:10 AM) UA Sq Epi [Few /LPF] Clear (09/15/18 1:10 AM) UA Turbidity [Clear] <=1.0 mg/dL *NA* (09/15/18 1:10 AM) UA Urobilinogen [0.1-1.0 mg/dL] 1 /HPF (09/15/18 1:10 AM) UA WBC [0-5 /HPF] 8.1 K/CMM (09/15/18 6:46 AM) 6.9 K/CMM (09/14/18 10:43 PM) WBC [3.7-10.4 K/CMM] 1Result Comment: The eGFR is calculated using [...] be mul tiplied by the estimated BMI. Immunizations No data available for this section Procedures Procedure Date Related Diagnosis Body Site Status section Completed Cholecystectomy Completed Partitioning of stomach using renata Completed Social History Social History Type Response Substance Abuse Use: Current. Type: Mariju rachel. 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; Other Tobacco Frequency quit 3 weeks; entered on: 09/15/18 Assessment and Plan Extracted from: Title: Discharge Summary * Author: Jak Dumont Date: 09/15/18 Discharge Information Disposition to home Condition stable Medications: See med reconciliation form Diet: Heart healthy Extracted from: Title: History and Physical Author: Rigoberto Nichols MD Date: 09/15/18 Chest pain(R07.9) Ordered: Admit/Condition, 09/15/18 4:38:00 FRONT DESK SPECIALIST, 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 Cardiology evaluation Uncontrolled DM >check HbA1c, SSI as needed, reconcile an home meds. COPD >continue with home bronchodilators, +/- steroids. per protocol 1 midnight, observation, telemetry
--- OUTSIDE RECORDS SUMMARY | 2020-01-29 00:56 | XMS REPORT | Continuity of Care Document ---
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 Role Phone [facility] [employer] Information [employer] Unavailable Un available Problems Problem Status Onset Date Classification Date Reported Comments Source Other chest pain 09/21/2018 04/04/2019 [facility] CHEST PAIN Active 09/14/2018 [facility] M25.521 - PAIN IN RIGHT ELBOW Active 11/09/2017 [facility]IV[facility] Reynaa BLISTERS, BURN Active 08/15/2017 [facility] HONG Active 08/15/2017 [facility] R05 - COUGH [facility] PNEUMON[facility] Active 02/23/2016 [facility] UNK Active 0 12/19/2015 [facility] 611.72 - LUMP OR MASS IN Active 01/11/2015 SRINIV[facility] [place] Sleep apnea (finding) Resolved Problem 05/12/2019 [facility] PID [place],[facility] Asthma (disorder) Resolved Problem 05/12/2019 [facility] PID [place],[facility] Bipolar (qualifier value) Reso lved Problem [facility] MEGHAN [place],[facility] Chronic obstructive lung disease (disorder) Resolved Problem 05/12/2019 [facility], SRINIVAS C[place]dy,[facility] Depression - motion (qualifier value) Resolved Problem 05/12/2019 [facility], RACHELD C[place]dy,[facility] Diabetes mellitus (disorder) R esolved Problem [facility] O PID [place],[facility] Gastroesophageal reflux disease (disorder) Resolved Problem 05/12/2019 [facility], SRINIVAS Soliz,[facility] Myocardial infarction (disorder) Resolved Problem [facility], O PID Patricia,[facility] Hyperlipidemia (disorder) Reso lved Problem [facility], O PID [place],[facility] Encounter for screening mammogram for ma lignant neoplasm of breast 05/12/2019 SRINIVAS Soliz Type 2 diabetes mellitus without complications 04/04/2019 [facility] Chronic obstructive pulmonary disease, unspecified 04/04/2019 [facility] Hyperlipidemia, unspecified 04/04/2019 [facility] Atherosclerotic heart disease of [place] coronary artery without angina pectoris 04/04/2019 [facility] Obstructive sleep apnea (adult) (pediatric) 04/04/2019 [facility] Bipolar disorder, unspecified 04/04/2019 [facility] Gastro-esophageal reflux disease without esophagitis 04/04/2019 [facility] Dependence on supplemental oxygen 04/04/2019 [facility] Personal history of nicotine dependence 04/04/2019 [facility] 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 Inactive 09/15/2018 [facility] Insulin Lispro Notes: (Same as : Humalog ) Roll in palms of hands gently; Do not shake `vigorously. "Single Patient Use Only " WASTE: F/P - Black; E - Municipal Trash Bin Stable for 28 days at room temp erature. Expires in days from Date Inactive 09/15/2018 [facility] Glucagon 1 mg, Route: IM, Drug form: PDR/INJ, PRN, Dosing Weight 77.273, kg, PRN Blood Glucose Results, Start date: 09/15/18 6:58:00 GRINDING WHEEL FACER, Duration: 30 day, Stop date: 10/15/18 6:57:00 GRINDING WHEEL FACER Inactive 09/15/2018 [facility] Dextrose 50% Syringe 25 gm, 50 mL, Route: IVP, Drug Form: INJ, Dosing Weight 77.273, kg, PRN, PRN Blood Glucose Results, Start date: 09/15/18 6:58:00 GRINDING WHEEL FACER, Duration: 30 day, Stop date: 10/15/18 6:57:00 GRINDING WHEEL FACER Inactive 09/15/2018 [facility] ARIPiprazole 10 mg oral tablet 10 mg = 1 tab, PO, Daily, # 30 tab, 0 Refill(s) Active 09/15/2018 [facility] 200 ACTUAT Albuterol 0.09 MG/ACTUAT / Ip ratropium Willard 0.018 MG/ACTUAT Metered Dose Inhaler [Combivent] 2 puff, INHALER, QID, # 14 gm, 0 Refill(s) Active 09/15/2018 [facility] sucralfate 1 g oral tablet 1 g m = 1 tab, PO, QID, # 40 tab, 0 Refill(s) Active 09/15/2018 [facility] rosuvastatin 10 mg oral tablet 10 mg = 1 tab, PO, Bedtime, # 30 tab, 0 Refill(s) Active 09/15/2018 [facility] Trelegy Ellipta inhalation powder = 1 puff, INHALATION, Daily, 0 Refill(s) Active 09/15/2018 [facility] Saline Flush 0.9% Notes: (Same as: BD Posiflush) Inactive 09/15/2018 [facility] Acetaminophen 325 MG / Hydrocodone Meghan trate 5 MG Oral Tablet Notes: (Same as: [place] 325/5) Do not ex ceed 4gm/day of acetaminophen. Inactive 09/15/2018 [facility] Morphine 2 mg, 1 mL, Route: IV P, Drug form: SOLN, Q2H, Dosing Weight 77.273, kg, PRN Pain Score 4-6, Start date: 09/15/18 6:00:00 GRINDING WHEEL FACER, Duration: 30 day, Stop date: 10/15/18 5:59:00 GRINDING WHEEL FACER Inactive 09/15/2018 [facility] Nitroglycerin Notes: (Same as: Nitroquick, Nitrostat) "Do Not Crush" Sublingual tablet Inactive 09/15/2018 [facility] Sodium Chloride 0.9% IV 1,000 mL + M.V.I .-12 10 mL Daily + folic acid IV 1 mg Daily + thiamine IV 1 1,000 mL, Rate: 100 ml/hr, Infuse over: 10 hr, Route: IV, Dosing Weight 77.273 kg, Total Volume: 1,000, Start date: 09/15/18 6:00:00 GRINDING WHEEL FACER, Duration: 3 day, Stop date: 09/18/18 5:59:00 GRINDING WHEEL FACER, 1.93, m2 Inactive 09/15/2018 [facility] Hydralazine 10 mg, Route: IV, ONCE, Dosing Weight 77.273, kg, Start date: 09/15/18 2:59:00 GRINDING WHEEL FACER, Stop date: 09/15/18 2:59:00 GRINDING WHEEL FACER Inactive 09/15/2018 [facility] sucralfate 1 g oral tablet 1 g m = 1 tab, PO, QID, # 28 tab, 0 Refill(s) Active 09/15/2018 [facility] venlafaxine 75 mg, PO, Daily, 0 Refill(s) Active 09/15/2018 [facility] meloxicam 15 mg oral tablet 15 mg = 1 tab, PO, Daily, # 30 tab, 0 Refill(s) Active 09/15/2018 [facility] lamotrigine 100 mg, PO, Bedtim e, 0 Refill(s) Active 09/15/2018 [facility] Aspirin 81 MG Chewable Tablet 324 mg, Route: PO, Drug form: [place], ONCE, Dosing Weight 77.273, kg, Priority: STAT, Start date: 09/15/18 2:41:00 GRINDING WHEEL FACER, Stop date: 09/15/18 2:41:00 GRINDING WHEEL FACER Inactive 09/15/2018 [facility] Saline Flush 0.9% Notes: (Same as: BD Posiflush) No Longer Active 09/15/2018 [facility] Acetaminophen 325 MG / Hydrocodone Meghan trate 5 MG Oral Tablet 1 tab, PO, Q4H, PRN Pain Score 4-6, X 7 day, # 20 tab, 0 Refill(s), given to patient Active 08/17/2017 [facility] Glucan Pro Ointment 3.5oz See Instructions, TOP TID, # 5 gm, 0 Refill(s) Active 08/17/2017 [facility] bacitracin zinc 0.5 UNT/MG Topical Ointment 1 appl, TOP, Q12H, X 14 day, # 15 gm, 0 Refill(s), Pharmacy: [facility] [id number] Active 08/17/2017 [facility] Bacitracin 0.5 UNT/MG Ophthalmic Ointment 1 appl, BOTH EYES, QID, X 14 day, # 4 gm, 0 Refill(s), [facility]acy: [id number] Active 08/17/2017 [facility] Pravastatin Notes: (Same as: P ravachol) No Longer Active 08/17/2017 [facility] pantoprazole Notes: Tablet ryan uld not be chewed or crushed. (Same as: Protonix) N o Longer Active 08/16/2017 [facility] Bacitracin 0.25 inch, Route: B OTH EYES, Q4H, Drug form: OINT, Start date: 08/16/17 12:00:00 GRINDING WHEEL FACER, Duration: 30 day, Stop date: 09/15/17 8:00:00 GRINDING WHEEL FACER No Longer Active 08/16/2017 [facility] Docusate Notes: (Same as: Cola ce) (Do Not Crush) No Longer Active 08/16/2017 [facility] Sertraline Notes: (Same as: Zo loft) No Longer Active 08/16/2017 [facility] Deep Sea Nasal [place] Notes: (S chelsie as: [place], Deep Sea Nasal [place]). No Longer Active 08/16/2017 [facility] Bacitracin 1 appl, Route: TOP, Q12H, Drug form: OINT, Start date: 08/16/17 9:00:00 GRINDING WHEEL FACER, Duration: 30 day, Stop date: 09/14/17 21:00:00 GRINDING WHEEL FACER No Longer Active 08/16/2017 [facility] quetiapine Notes: (Same as: SE ROquel) No Longer Active 08/16/2017 [facility] Lyrica Notes: (Same as: Lyrica) No Longer Active 08/16/2017 [facility] Losartan Notes: (Same as: Coza ar) No Longer Active 08/16/2017 [facility] Prevacid Notes: Take 1 hour be fore or 2 hours after meal; Expires in 14 days. Shake well before use. (Same as:Prevacid) Compounded Product - formulation not commercially available No Longer Active 08/16/2017 [facility] donepezil Notes: (Same as: Bhavin cept) No Longer Active 08/16/2017 [facility] Bupropion Notes: (Do not crush ) (Same As: Wellbutrin SR) No Longer Active 08/16/2017 [facility] budesonide-formoterol 160 mcg-4.5 mcg/in h inhalation aerosol with adapter Notes: (Same as: Symbicort) WASTE: Aero criss - Return to Pharmacy No Longer Active 08/16/2017 [facility] Albuterol 0.83 MG/ML Inhalant Solution Notes: SEE RT DOCUMENTATION (Same as: Proventil) No Longer Active 08/16/2017 [facility] Benadryl Notes: (Same as: Cherie dryl) No Longer Active 08/16/2017 [facility] Acetaminophen 325 MG / Hydrocodone Meghan trate 10 MG Oral Tablet [[place] 10/325] Notes: Do not exceed 4gm/day of acetamin ophen. (Same as: [place] 325/10) No Longer Active 08/16/2017 [facility] tramadol hydrochloride 50 MG Oral Tablet Notes: Not to exceed 400mg/day. (Same As: Ultram) Inactive 08/16/2017 [facility] Enoxaparin Notes: (Same as: Lo venox) No Longer Active 08/16/2017 [facility] Insulin Lispro Notes: (Same as : Humalog ) Roll in palms of hands gently; Do not shake `vigorously. "Single Patient Use Only " WASTE: F/P - Black; E - Municipal Trash Bin Stable for 28 days at room temp erature. Expires in days from Date No Longer Active 08/16/2017 [facility] Dextrose 50% Syringe 25 gm, 50 mL, Route: IVP, Drug Form: INJ, Dosing Weight 73.636, kg, PRN, PRN Blood Glucose Results, Start date: 08/16/17 4:10:00 GRINDING WHEEL FACER, Duration: 30 day, Stop date: 09/15/17 4:09:00 GRINDING WHEEL FACER No Longer Active 08/16/2017 [facility] Glucagon 1 mg, Route: IM, Drug form: PDR/INJ, PRN, Dosing Weight 73.636, kg, PRN Blood Glucose Results, Start date: 08/16/17 4:10:00 GRINDING WHEEL FACER, Duration: 30 day, Stop date: 09/15/17 4:09:00 GRINDING WHEEL FACER No Longer Active 08/16/2017 [facility] Glucan Pro Ointment 3.5oz Note s: Same as "Glucan Pro Ointment" No Longer Active 08/16/2017 [facility] Advair HFA 115 mcg-21 mcg/inh inhalation aerosol with adapter 1 puff, Route: INHALATION, Drug Form: AE RO/A, Dosing Weight 73.636, kg, BID, PRN Shortness of breath, Start date: 08/16/17 2:53:00 GRINDING WHEEL FACER, Duration: 30 day, Stop date: 09/15/17 2:52:00 GRINDING WHEEL FACER Inactive 08/16/2017 [facility] Acetaminophen Notes: Do not ex ceed 4 gm/day. (Same as: Tylenol) No Longer Active 08/16/2017 [facility] Ondansetron Notes: (Same as: Michael boone) MEDICATION WASTE Product Size: 4 mg Product Wasted: ___ mg No Longer Active 08/16/2017 [facility] Morphine Notes: (Same as:MORPh ine Sulfate) No Longer Active 08/16/2017 [facility] Acetaminophen 325 MG / Hydrocodone Meghan trate 5 MG Oral Tablet Notes: (Same as: [place] 325/5) Do not ex ceed 4gm/day of acetaminophen. No Longer Active 08/16/2017 [facility] Fentanyl 50 microgram, Route: IVP, ONCE, Dosing Weight 73.636, kg, Priority: STAT, Start date: 08/16/17 0:49:00 GRINDING WHEEL FACER, Stop date: 08/16/17 0:49:00 GRINDING WHEEL FACER Inactive 08/16/2017 [facility] Levemir FlexPen Notes: Same as Damon Do not hold insulin without contacting prescriber WASTE: F/P - Black; E - Municipal Trash Bin "single patient use only" Inactive 02/25/2016 [facility] Lantus 15 unit, Route: SUB-Q, Bedtime, Dosing Weight 70.909, kg, Start date: 02/24/16 21:00:00 CDT, Duration: 30 day, Stop date: 03/24/16 21:00:00 CDT Inactive 02/25/2016 [facility] sertraline 100 mg oral tablet 100 mg = 1 tab, PO, Daily, 0 Refill(s) Active 02/24/2016 [facility] OXcarbazepine 300 mg oral tablet 300 mg = 1 tab, PO, BID, # 90 tab, 6 Refill(s) Active 02/24/2016 [facility] Losartan Notes: (Same as: Bladimir ar) Inactive 02/24/2016 [facility] Prevacid 30 mg, Route: PO, Jovani g form: DRC, Daily, Dosing Weight 71.364, kg, Start date: 02/24/16 9:00:00 CDT, Duration: 30 day, Stop date: 03/24/16 9:00:00 CDT No Longer Active 02/24/2016 [facility] Fluoxetine Notes: (Same as: Pr ozac) Inactive 02/24/2016 [facility] Furosemide 40 MG Oral Tablet N otes: (Same as: Lasix) May cause GI upset. Give with food or milk. Inactive 02/24/2016 [facility] donepezil Notes: (Same as: Bhavin cept) Inactive 02/24/2016 [facility] glimepiride Notes: (Same as: Ebonie shaver) Inactive 02/24/2016 [facility] Pravastatin Notes: (Same as: Garrett ravachol) No Longer Active 02/24/2016 [facility] Lantus 15 unit, Route: SUB-Q, Bedtime, Dosing Weight 71.364, kg, Start date: 02/23/16 21:00:00 CDT, Duration: 30 day, Stop date: 03/23/16 21:00:00 CDT Inactive 02/24/2016 [facility] methylPREDNISolone SODium SUCCinate Notes: (Same as:Solu-MEDROL, A-Methapred) N o Longer Active 02/24/2016 [facility] Levemir FlexPen Notes: Same as Levemir Do not hold insulin without contacting prescriber WASTE: F/P - Black; E - Municipal Trash Bin "single patient use only" No Longer Active 02/24/2016 [facility] meropenem Notes: Same as Jim m MEDICATION WASTE Product Size: 500 mg Product Wasted: ___ mg No Longer Active 02/23/2016 [facility] Lyrica Notes: (Same as: Lyrica) No Longer Active 02/23/2016 [facility] quetiapine Notes: (Same as: SE ROquel) No Longer Active 02/23/2016 [facility] Bupropion Notes: (Do not crush ) (Same As: Wellbutrin SR) No Longer Active 02/23/2016 [facility] pantoprazole Notes: Tablet ryan uld not be chewed or crushed. (Same as: Protonix) N o Longer Active 02/23/2016 [facility] Acetaminophen 325 MG / Hydrocodone Meghan trate 5 MG Oral Tablet [[place] 5/325] Notes: (Same as: [place] 325/5) Do not ex ceed 4gm/day of acetaminophen. No Longer Activ e 02/23/2016 [facility] Ibuprofen 400 MG Oral Tablet N otes: (Same as: Motrin) "Do Not Crush" Give with food. No Longer Active 02/23/2016 [facility] RN-Bring pt's own ADVAIR INh to pharmacy for label RN-Bring pt's own ADVAIR INh to pharmacy for label, Attn:QUIRINO, Drug form: MISC, Route: MISC, QSHIFT, 02/23/16 16:00:00 CDT, Duration: 30 day, Stop date: 03/24/16 8:00:00 CDT No Longer Active 02/23/2016 [facility] 200 ACTUAT Ipratropium Willard 0.017 MG/ ACTUAT Metered Dose Inhaler [Atrovent] Notes: (ipratropium 17microgram/inh 14gm AER) (Same as:Atrovent) WASTE: Aerosol - Return to Pharmacy No Longer Active 02/23/2016 [facility] Albuterol 0.83 MG/ML Inhalant Solution Notes: SEE RT DOCUMENTATION (Same as: Proventil) No Longer Active 02/23/2016 [facility] cefepime /= 50 ml/min or CVVHD ), Start date: 02/23/16 15:00:00 CDT, Duration: 30 day, Stop date: 03/24/16 7:00:00 CDT Inactive 02/23/2016 [facility] Tobramycin 60 ml/min), Time C ritical Medication, Start date: 02/23/16 15:00:00 CDT, Duration: 30 day, Stop date: 03/23/16 15:00:00 CDT Inactive 02/23/2016 [facility] Sodium Chloride 0.9% IV 500 mL 500 mL, Rate: 1,000 ml/hr, Infuse over: 0.5 hr, Route: IV, Dosing Weight 71.364 kg, Total Volume: 500, Start date: 02/23/16 14:42:00 CDT, Duration: 1 doses or times, Stop date: 02/23/16 15:11:00 CDT, Bolus Dose Inactive 02/23/2016 [facility] Insulin, Aspart, Human Notes: Roll in palms of hands gently; Do not shake vigorously. (Same as: NovoLOG) "single patient use only" WASTE: F/P - Black; E - Municipal Trash Bin Stable for 28 days at room temperature. Expires in days from Date No Longer Active 02/23/2016 [facility] Dextrose 50% Syringe 25 gm, 50 mL, Route: IVP, Drug Form: INJ, Dosing Weight 71.364, kg, PRN, PRN Blood Glucose Results, Start date: 02/23/16 14:22:00 CDT, Duration: 30 day, Stop date: 03/24/16 14:21:00 CDT No Longer Active 02/23/2016 [facility] Glucagon 1 mg, Route: IM, Drug form: PDR/INJ, PRN, Dosing Weight 71.364, kg, PRN Blood Glucose Results, Start date: 02/23/16 14:22:00 CDT, Duration: 30 day, Stop date: 03/24/16 14:21:00 CDT No Longer Active 02/23/2016 [facility] Guaifenesin Notes: (Same as: Austin obitussin) No Longer Active 02/23/2016 [facility] Ondansetron Notes: (Same as: Michael boone) MEDICATION WASTE Product Size: 4 mg Product Wasted: ___ mg No Longer Active 02/23/2016 [facility] Vancomycin 2001 mg: infuse ov er 2.5 hours MEDICATION WASTE Product Size: 1000 mg Product Wasted: ___ mg No Longer Active 02/23/2016 [facility] Enoxaparin Notes: (Same as: Sandi venox) No Longer Active 02/23/2016 [facility] Advair HFA 115 mcg-21 mcg/inh inhalation aerosol with adapter 1 puff, Route: INHALATION, Drug Form: AE RO/A, Dosing Weight 71.364, kg, BID, PRN Shortness of breath, Start date: 02/23/16 13:52:00 CDT, Duration: 30 day, Stop date: 03/24/16 13:51:00 CDT No Longer Active 02/23/2016 [facility] losartan 50 mg oral tablet 50 mg = 1 tab, PO, Daily On Hold 02/23/2016 [facility] 200 ACTUAT Ipratropium Willard 0.017 MG/ ACTUAT Metered Dose Inhaler [Atrovent] 2 puff, INHALATION, QID On Hold 02/23/2016 [facility] Advair HFA 115 mcg-21 mcg/inh inhalation aerosol with adapter 1 puff, INHALATION, BID, PRN Shortness of breath On Hold 02/23/2016 [facility] donepezil 5 mg oral tablet 5 m g = 1 tab, PO, Daily On Hold 02/23/2016 [facility] buPROPion 150 mg oral tablet, extended release 150 mg = 1 tab, PO, BID On Hold 02/23/2016 [facility] Albuterol 0.83 MG/ML Inhalant Solution 2.49 mg = 3 mL, NEB, Q4H On Hold 02/23/2016 [facility] cefepime 1 gm, Route: IVPB, ON CE, Dosing Weight 71.364, kg, Priority: STAT, Start date: 02/23/16 11:44:00 CDT, Stop date: 02/23/16 11:44:00 CDT Inactive 02/23/2016 [facility] Levofloxacin 750 mg, Route: IV PB, ONCE, Dosing Weight 71.364, kg, Priority: STAT, Start date: 02/23/16 11:44:00 CDT, Stop date: 02/23/16 11:44:00 CDT Inactive 02/23/2016 [facility] Acetaminophen 325 MG / Hydrocodone Meghan trate 5 MG Oral Tablet [[place] 5/325] 2 tab, Route: PO, Drug Form: TAB, Dosing Weight 71.364, kg, ONCE, STAT, Start date: 02/23/16 10:56:00 CDT, Stop date: 02/23/16 10:56:00 CDT Inactive 02/23/2016 [facility] Albuterol 0.83 MG/ML Inhalant Solution 2.49 mg, Route: NEB, Drug form: SOLN, ONCE, Dosing Weight 71.364, kg, Priority: STAT, Start date: 02/23/16 10:13:00 CDT, Stop date: 02/23/16 10:13:00 CDT Inactive 02/23/2016 [facility] Saline Flush 0.9% Notes: (Same as: BD Posiflush) No Longer Active 02/23/2016 [facility] Sodium Chloride 0.154 MEQ/ML Injectable Solution 1,000 mL, Rate: 25 ml/hr, Infuse over: 40 hr, Route: IV, Dosing Weight 70.455 kg, Total Volume: 1,000, Start date: 12/19/15 15:19:00 CDT, Duration: 30 day, Stop date: 01/18/16 15:18:00 CDT Inactive 12/19/2015 [facility] Symbicort 160/4.5 inhalation aerosol with adapter 2 puff, INHALER, BID, # 1 ea, 3 Refill(s) Active 12/19/2015 [facility] sucralfate 1 g oral tablet 1 g m = 1 tab, PO, Before Meals & Bedtime, # 120 tab, 3 Refill(s) Active 12/19/2015 [facility] QUEtiapine 50 mg oral tablet 5 0 mg = 1 tab, PO, BID, # 60 tab, 0 Refill(s) Active 12/19/2015 [facility] lansoprazole 30 MG Enteric Coated Capsule [Prevacid] 30 mg, PO, Daily, # 15 cap, 0 Refill(s) Active 12/19/2015 [facility] pravastatin 40 mg oral tablet 40 mg = 1 tab, PO, Bedtime, # 30 tab, 0 Refill(s) Active 12/19/2015 [facility] pantoprazole 40 mg oral enteric coated tablet 40 mg = 1 tab, PO, Daily, # 30 tab, 0 Refill(s) Active 12/19/2015 [facility] Lantus SUB-Q, 0 Refill(s) Active 12/19/2015 [facility] glimepiride 4 mg oral tablet 4 mg = 1 tab, PO, Breakfast, # 30 tab, 0 Refill(s) Active 12/19/2015 [facility] Furosemide 40 MG Oral Tablet 4 0 mg = 1 tab, PO, Daily, # 30 tab, 0 Refill(s) Active 12/19/2015 [facility] FLUoxetine 20 mg oral capsule 20 mg = 1 cap, PO, Daily, # 30 cap, 0 Refill(s) Active 12/19/2015 [facility] pregabalin 75 MG Oral Capsule [Lyrica] 75 mg = 1 cap, PO, TID, # 90 cap, 0 Refill(s) Active 12/19/2015 [facility] lisinopril 20 mg oral tablet 2 0 mg = 1 tab, PO, Daily, # 30 tab, 0 Refill(s) Active 12/19/2015 [facility] Atrovent HFA 2 puff, INHALATIO N, QID, 0 Refill(s) Active 12/19/2015 [facility] amitriptyline 25 mg oral tablet 25 mg = 1 tab, PO, TID, # 270 tab, 0 Refill(s) Active 12/19/2015 [facility] Sodium Chloride 0.154 MEQ/ML Injectable Solution 1,000 mL, Rate: 25 ml/hr, Infuse over: 40 hr, Route: IV, Total Volume: 1,000, Start date: 12/19/15 15:05:00 CDT, Duration: 30 day, Stop date: 01/18/16 15:04:00 CDT Inactive 12/19/2015 [facility] Allergies, Adverse Reactions, Alerts Substance Category Reaction Severity Reaction type Status Date Reported Comments Source penicillins Assertion ITCHING Mild Drug allergy Active OPI [place] Immunizations No Data Provided for This Section Results Order Name Results Value Reference Range Date Interpretation Comments Source CARDIAC ENZYMES Troponin-I 0.02 0.00 - 0.40 09/15/2018 [facility] CARDIAC ENZYMES Troponin-I 0.02 0.00 - 0.40 09/15/2018 [facility] ELECTROLYTES AGAP 7.7 10.0 - 20.0 09/15/2018 [facility] ELECTROLYTES eGFR 75 09/15/2018 Result Comment: The eGFR is calculated [...] should be multiplied by the estimated BMI. [facility] ELECTROLYTES BUN 15 7 - 22 09/15/2018 [facility] ELECTROLYTES Glucose Lvl 252 70 - 99 09/15/2018 [facility] ELECTROLYTES Potassium Lvl 3.7 3.5 - 5.1 09/15/2018 [facility] ELECTROLYTES Sodium Lvl 138 135 - 145 09/15/2018 [facility] ELECTROLYTES Creatinine Lvl 0.8 6 0.50 - 1.40 09/15/2018 [facility] ELECTROLYTES Calcium Lvl 8.4 8.5 - 10.5 09/15/2018 [facility] ELECTROLYTES CO2 30 24 - 32 09/15/2018 [facility] ELECTROLYTES Chloride Lvl 104 95 - 109 09/15/2018 [facility] Platelet 155 133 - 450 09/15/2018 [facility] MCHC 33.8 32.0 - 36.0 09/15/2018 [facility] RDW 12.8 11.5 - 14.5 09/15/2018 [facility] Hgb 11.0 12.0 - 16.0 09/15/2018 [facility] MCH 31.1 27.0 - 31.0 09/15/2018 [facility] MCV 92.1 80.0 - 98.0 09/15/2018 [facility] WBC 8.1 3.7 - 10.4 09/15/2018 [facility] RBC 3.53 4.20 - 5.40 09/15/2018 [facility] MPV 11.2 7.4 - 10.4 09/15/2018 [facility] Hct 32.5 36.0 - 48.0 09/15/2018 [facility] Basophils # 0.1 0.0 - 0.2 09/15/2018 [facility] Lymphocytes # 2.1 1.0 - 5.5 09/15/2018 [facility] Neutrophils # 5.0 1.5 - 8.1 09/15/2018 [facility] Basophils 1.3 0.0 - 1.0 09/15/2018 [facility] Monocytes # 0.9 0.0 - 0.8 09/15/2018 [facility] Monocytes 11.2 2.0 - 12.0 09/15/2018 [facility] Large Plt Moder ate *ABN* (09/15/18 6:46 AM) None Seen 09/15/2018 [facility] Lymphocytes 26.3 20.0 - 40.0 09/15/2018 [facility] HEMATOLOGY Segs 61.2 45.0 - 75.0 09/15/2018 [facility] HEMATOLOGY RBC Morph Lori l (09/15/18 6:46 AM) 09/15/2018 [facility] URINE AND STOOL UA WBC 1 0 - 5 09/15/2018 [facility] URINE AND STOOL UA Leuk Est Negative (09/15/18 1:10 AM) Negative 09/15/2018 [facility] URINE AND STOOL UA Nitrite Negative (09/15/18 1:10 AM) Negative 09/15/2018 [facility] URINE AND STOOL UA Urobilinogen <=1.0 mg/dL 0.1 - 1.0 09/15/[address] [facility] [address] URINE AND STOOL UA Bacteria Occasional /HPF None Seen /HPF 09/15/[address] [facility] [address] URINE AND STOOL UA Sq Epi Occasional /LPF Few /LPF 09/15/2018 [facility] URINE AND STOOL UA RBC 1 0 - 2 09/15/2018 [facility] URINE AND STOOL UA Bili Negative *NA* (09/15/18 1:10 AM) Negative 09/15/2018 [facility] URINE AND STOOL UA Blood Negative (09/15/18 1:10 AM) Negative 09/15/2018 [facility] URINE AND STOOL UA Ketones Negative *NA* (09/15/18 1:10 AM) Negative 09/15/2018 [facility] URINE AND STOOL UA Protein Negative (09/15/18 1:10 AM) Negative 09/15/2018 [facility] URINE AND STOOL UA pH 5.0 5.0 - 8.0 09/15/2018 [facility] URINE AND STOOL UA Spec Grav 1.037 <=1.030 09/15/2018 [facility] URINE AND STOOL UA Glucose 500 mg/dL Negative mg/dL 09/15/2018 [facility] URINE AND STOOL UA Turbidity Clear (09/15/18 1:10 AM) Clear 09/15/2018 [facility] URINE AND STOOL UA Color Ltyellow 09/15/2018 [facility] RAPID Grp A Strep Scr Negative (09/15/18 12:57 AM) Negative 09/15/2018 [facility] VIRAL - SEROLOGY Influ B Negative (09/15/18 12:57 AM) Negative 09/15/2018 [facility] VIRAL - SEROLOGY Influ A Negative (09/15/18 12:57 AM) Negative 09/15/2018 [facility] CARDIAC ENZYMES Total CK 34 12 - 191 09/15/2018 [facility] CARDIAC ENZYMES Troponin-I <0.02 0.00 - 0.40 09/15/2018 [facility] CARDIAC ENZYMES BNP 39 <=100 pg/mL 09/15/2018 [facility] CHEM PANEL eGFR 58 09/15/2018 Result Comment: The eGFR is calculated [...] should be multiplied by the estimated BMI. [facility] CHEM PANEL Bili Total 0.3 0.2 - 1.3 09/15/2018 [facility] CHEM PANEL AST 15 0 - 37 09/15/2018 [facility] CHEM PANEL Alk Phos 113 39 - 136 09/15/2018 [facility] CHEM PANEL ALT 20 0 - 65 09/15/2018 [facility]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
--- OUTSIDE RECORDS SUMMARY | 2020-01-29 01:02 | XMS REPORT | Continuity of Care Document ---
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 CDT, Stop date: 02/23/16 10:56:00 CDT Triston Clemons Albuterol 0.83 MG/ML Inhalant Solution 2016-02-23 15:13:00 No 2.49 mg, Route: NEB, Drug form: SOLN, ONCE, Dosing Weight 71.364, kg, Priority: STAT, Start date: 02/23/16 10:13:00 CDT, Stop date: 02/23/16 10:13:00 CDT Triston Clemons Saline Flush 0.9% 2016-02-23 15:13:00 No Notes: (Same as: BD Posiflush) Triston Clemons Sodium Chloride 0.154 MEQ/ML Injectable Solution 2015-12-19 20:1 9:00 No 1,000 mL, Rate: 25 ml/hr, In fuse over: 40 hr, Route: IV, Dosing Weight 70.455 kg, Total Volume: 1,000, Start date: 12/19/15 15:19:00 CDT, Duration: 30 day, Stop date: 01/18/16 15:18:00 CDT Colton Clemons Symbicort 160/4.5 inhalation aerosol with adapter 2015-12-19 20:10:00 Yes 2 puff, INHALER, BID, # 1 ea, 3 Refill(s) Triston Clemons sucralfate 1 g oral tablet 2015-12-19 20:09:00 Yes 1 gm = 1 tab, PO, Before Meals & Bedtime, # 120 tab, 3 Refill(s) Triston Clemons QUEtiapine 50 mg oral tablet 2015-12-19 20:09:00 Yes 50 mg = 1 tab, PO, BID, # 60 tab, 0 Refill(s) Triston Clemons lansoprazole 30 MG Enteric Coated Capsule [Prevacid] 2 20:09:00 Yes 30 mg, PO, Daily, # 15 cap, 0 Refill(s) Triston Clemons pravastatin 40 mg oral tablet 2015-12-19 20:09:00 Yes 40 mg = 1 tab, PO, Bedtime, # 30 tab, 0 Refill(s) Calin erick Clemons pantoprazole 40 mg oral enteric coated tablet 2015-12-19 20:09:0 0 Yes 40 mg = 1 tab, PO, Daily, # 30 tab, 0 Refill(s) Triston Clemons Lantus 2015-12-19 20:08:00 Yes SUB-Q, 0 Refi ll(s) Triston Clemons glimepiride 4 mg oral tablet 2015-12-19 20:08:00 Yes 4 mg = 1 tab, PO, Breakfast, # 30 tab, 0 Refill(s) Yaya peguero [place] Furosemide 40 MG Oral Tablet 2015-12-19 20:08:00 Yes 40 mg = 1 tab, PO, Daily, # 30 tab, 0 Refill(s) Yayaalejo rosetta Clemons FLUoxetine 20 mg oral capsule 2015-12-19 20:08:00 Yes 20 mg = 1 cap, PO, Daily, # 30 cap, 0 Refill(s) Farhad laboy [place] pregabalin 75 MG Oral Capsule [Lyrica] 2015-12-19 20:08:00 Yes 75 mg = 1 cap, PO, TID, # 90 cap, 0 Refill(s) Triston Clemons lisinopril 20 mg oral tablet 2015-12-19 20:08:00 Yes 20 mg = 1 tab, PO, Daily, # 30 tab, 0 Refill(s) Yayaalejo rosetta Clemons Atrovent HFA 2015-12-19 20:07:00 Yes 2 puff, INHALATION, QID, 0 Refill(s) Triston Clemons amitriptyline 25 mg oral tablet 2015-12-19 20:07:00 Yes 25 mg = 1 tab, PO, TID, # 270 tab, 0 Refill(s) Yaya sureshnarda [facility] Sodium Chloride 0.154 MEQ/ML Injectable Solution 2015-12-19 20:0 5:00 No 1,000 mL, Rate: 25 ml/hr, In fuse over: 40 hr, Route: IV, Total Volume: 1,000, Start date: 12/19/15 15:05:00 CDT, Duration: 30 day, Stop date: 01/18/16 15:04:[address] [facility] Levofloxacin (Levaquin) 500 Mg Tablet, 500 Mg Oral Lev ofloxacin (Levaquin) 500 Mg Tablet, 500 Mg Oral 2014-10-10 00:00:00 2016-07-09 00:00:00 Layne Good Md 500 Daily [facility] Albuterol Sulfate (Proair Hfa Inhaler*) 8.5 Gm Inh Alb uterol Sulfate (Proair Hfa Inhaler*) 8.5 Gm Inh Yes As Needed [facility] Alprazolam 0.25 Mg Tablet Alprazolam 0.25 Mg Tablet Yes .25 Every 8 Hours as needed for Anxiety [facility] Amlodipine Besylate 10 Mg Tablet Amlodipine Besylate 10 Mg Tablet Yes 10 Daily [facility] Arformoterol Tartrate (Brovana) 15 Mcg/2 Ml Nebu Arfor moterol Tartrate (Brovana) 15 Mcg/2 Ml Nebu Yes 1 Rt Bid C HI [facility] Aspirin (Aspir 81) 81 Mg Tablet. Aspirin (Aspir 81) 81 Mg Tablet. Yes 81 Daily [facility] Atenolol (Tenormin) 50 Mg Tablet Atenolol (Tenormin) 50 Mg Tablet Yes 25 Daily [facility] Atorvastatin Calcium 20 Mg Tablet Atorvastatin Calcium 20 Mg Tablet Yes 80 Bedtime [facility] Benzonatate 100 Mg Capsule Benzonatate 100 Mg Capsule Yes 100 Three Times A Day [facility] Buspirone Hcl 15 Mg Tablet Buspirone Hcl 15 Mg Tablet Yes 15 Four Times Daily as needed for Anxiety [facility] Calcium Carbonate (Tums) 200 Mg Tab.chew Calcium Carbo joan (Tums) 200 Mg Tab.chew Yes 500 Every 8 Hours [facility] Clopidogrel Bisulfate (Clopidogrel) 75 Mg Tablet Clopi dogrel Bisulfate (Clopidogrel) 75 Mg Tablet Yes 75 Daily [facility] Famotidine 20 Mg Tab Famotidine 20 Mg Tab Yes 20 Twice A Day [facility] Ferrous Sulfate 325 Mg Tablet Ferrous Sulfate 325 Mg Tablet Yes 325 Daily [facility] Furosemide (Lasix) 40 Mg Tablet Furosemide (Lasix) 40 Mg Tablet Yes 40 Daily [facility] Glimepiride 4 Mg Tablet Glimepiride 4 Mg Tablet Yes 4 Twice A Day [facility] Insulin Glargine (Lantus 3ML Pen) 100 Units/1 Ml Inj I nsulin Glargine (Lantus 3ML Pen) 100 Units/1 Ml Inj Yes 15 Bedtime [facility] Insulin Glargine (Lantus 3ML Pen) 100 Units/1 Ml Inj I nsulin Glargine (Lantus 3ML Pen) 100 Units/1 Ml Inj Yes 15 Bedtime [facility] Ipratropium/Albuterol Sulfate (Combivent Respimat Inha l [place]) 4 Gm Aer.w.adap Ipratropium/Albuterol Sulfate (Combivent Respimat Inhal [place]) 4 Gm Aer.w.adap Yes 4 Four Times Daily [facility] Lamotrigine 100 Mg Tablet Lamotrigine 100 Mg Tablet Yes 100 Bedtime [facility] Losartan Potassium 25 Mg Tablet Losartan Potassium 25 Mg Tablet Yes 50 Daily [facility] Montelukast Sodium (Singulair) 10 Mg Tablet Montelukas t Sodium (Singulair) 10 Mg Tablet Yes 10 Daily [facility] Pantoprazole Sodium (Protonix) 40 Mg Tablet. Pantopr azole Sodium (Protonix) 40 Mg Tablet. Yes 40 Daily [facility] Pravastatin Sodium 40 Mg Tablet Pravastatin Sodium 40 Mg Tablet Yes 40 Bedtime [facility] Prednisone 10 Mg Tab Prednisone 10 Mg Tab Yes 10 Twice A Day [facility] Sucralfate 1 Gm Tablet Sucralfate 1 Gm Tablet Yes 1 Daily [facility] Ticagrelor (Brilinta) 90 Mg Tablet Ticagrelor (Brilinta) 90 Mg Tablet Yes Twice A Day [facility] Tramadol Hcl (Ultram) 50 Mg Tablet Tramadol Hcl (Ultram) 50 Mg Tablet Yes 50 Every 6 Hours as needed for Moderate Pain (4-6) [facility] Venlafaxine Hcl (Effexor Xr 37.5MG Capcr*) 37.5 Mg Cap cr Venlafaxine Hcl (Effexor Xr 37.5MG Capcr*) 37.5 Mg Capcr Yes 75 Daily [facility] Aripiprazole (Abilify) 5 Mg Tablet, 5 Mg Oral Aripipra zole (Abilify) 5 Mg Tablet, 5 Mg Oral 2019-10-03 00:00:00 No 5 Daily [facility] Fluoxetine Hcl (Prozac) 20 Mg Capsule, 20 Mg Oral Fluo xetine Hcl (Prozac) 20 Mg Capsule, 20 Mg Oral 2019-10-03 00:00:00 No 20 Brunilda y [facility] Meloxicam 15 Mg Tablet, 15 Mg Oral Meloxicam 15 Mg Tablet, 15 Mg Oral 2019-10-03 00:00:00 No 15 Daily [facility] Quetiapine Fumarate 50 Mg Tablet, 75 Mg Oral Quetiapin e Fumarate 50 Mg Tablet, 75 Mg Oral 2019-10-03 00:00:00 No 75 Bedtime [facility] Venlafaxine Hcl 75 Mg Tab, 75 Mg Oral Venlafaxine Hcl 75 Mg Tab, 75 Mg Oral 2019-10-03 00:00:00 No 75 Daily [facility] Ipratropium/Albuterol Sulfate (Combivent Respimat Inhal [place]) 4 Gm Aer.w.adap, 4 Gm Inhalation Ipratropium/Albuterol Sulfate (Combivent Respimat Inhal [place]) 4 Gm Aer.w.adap, 4 Gm Inhalation 2018-12-22 00:00:00 No 4 Four Times Daily [facility] Ipratropium/Albuterol Sulfate (Combivent Respimat Inhal [place]) 4 Gm Aer.w.adap, 4 Gm Inhalation Ipratropium/Albuterol Sulfate (Combivent Respimat Inhal [place]) 4 Gm Aer.w.adap, 4 Gm Inhalation 2018-12-22 00:00:00 No 4 Four Times Daily [facility] Albu , 25 Gm Inhalation Albu , 25 Gm Inhalation 2018-08-08 00:00 :00 No 25 Four Times Daily [facility] Amitriptyline Hcl 25 Mg Tablet, 25 Mg Oral Amitriptyli ne Hcl 25 Mg Tablet, 25 Mg Oral 2018-08-08 00:00:00 No 25 Daily [facility] Celecoxib (Celebrex*) 100 Mg Capsule, 200 Mg Oral Marsha coxib (Celebrex*) 100 Mg Capsule, 200 Mg Oral 2018-08-08 00:00:00 No 200 Twi ce A Day [facility] Donepezil Hcl (Aricept) 5 Mg Tablet, 5 Mg Oral Donepez il Hcl (Aricept) 5 Mg Tablet, 5 Mg Oral 2018-08-08 00:00:00 No 5 Daily [facility] Famotidine 20 Mg Tab, 20 Mg Oral Famotidine 20 Mg Tab, 20 Mg Ora l 2018-08-08 00:00:00 No 20 Daily [facility] Lisinopril 2.5 Mg Tablet, 20 Mg Oral Lisinopril 2.5 Mg Tablet, 2 0 Mg Oral 2018-08-08 00:00:00 No 20 Daily [facility] Prednisone 10 Mg Tab, 10 Mg Oral Prednisone 10 Mg Tab, 10 Mg Ora l 2018-08-08 00:00:00 No 10 Daily [facility] Pregabalin (Lyrica) 75 Mg Cap, 75 Mg Oral Pregabalin ( Lyrica) 75 Mg Cap, 75 Mg Oral 2018-08-08 00:00:00 No 75 Twice A Day [facility] Symbicort , Inhalation Symbicort , Inhalation 2018-08-08 00: 00:00 No As Needed [facility] Buspar , Mg Oral Buspar , Mg Oral 2016-09-05 00:00:00 No Four Times Daily [facility] Glimepiride 2 Mg Tablet, 4 Mg Oral Glimepiride 2 Mg Tablet, 4 Mg Oral 2016-09-05 00:00:00 No 4 Daily [facility] Insulin Glargine (Lantus 3ML Pen) 100 Units/1 Ml Inj, 15 Unit Subcutaneously Insulin Glargine (Lantus 3ML Pen) 100 Units/1 Ml Inj, 15 Unit Subcutaneously 2016-07-09 00:00:00 No 15 Bedtime [facility] Glimepiride 2 Mg Tablet, 4 Mg Oral Glimepiride 2 Mg Tablet, 4 Mg Oral 2014-11-26 00:00:00 No 4 Daily [facility] Albuterol/Ipratropium (Combivent Inhaler) 14.7 Gm Aero , 1 Inh Inhalation Albuterol/Ipratropium (Combivent Inhaler) 14.7 Gm Aero, 1 Inh Inhalation 2014-11-21 00:00:00 No 1 Four Times Daily [facility] Albuterol 25 Gm Powder, 2 Inh Inhalation Albuterol 25 Gm Powder, 2 Inh Inhalation 2014-10-08 00:00:00 No 2 Four Times Da sujatha [facility] Amitriptyline Hcl 25 Mg Tablet, 25 Mg Oral Amitriptyli ne Hcl 25 Mg Tablet, 25 Mg Oral 2014-10-06 00:00:00 No 25 Bedtime [facility] Fluoxetine Hcl 20 Mg Tablet, 20 Mg Oral Fluoxetine Hcl 20 Mg Tablet, 20 Mg Oral 2014-10-06 00:00:00 No 20 Daily [facility] Gabapentin (Neurontin) 300 Mg Capsule, 300 Mg Oral Calos apentin (Neurontin) 300 Mg Capsule, 300 Mg Oral 2014-10-06 00:00:00 No 300 Th ree Times A Day [facility] Glimepiride 2 Mg Tablet, 4 Mg Oral Glimepiride 2 Mg Tablet, 4 Mg Oral 2014-10-06 00:00:00 No 4 [facility] Lansoprazole (Prevacid) 30 Mg Capsule.dr, 30 Mg Oral L ansoprazole (Prevacid) 30 Mg Capsule.dr, 30 Mg Oral 2014-10-06 00:00:00 No 30 Daily [facility] Levofloxacin 500 Mg Tablet, 500 Mg Oral Levofloxacin 500 Mg Tablet, 500 Mg Oral 2014-10-06 00:00:00 No 500 Daily [facility] Metoprolol Succinate (Toprol Xl) 25 Mg Tab.er.24h, 25 Mg Oral Metoprolol Succinate (Toprol Xl) 25 Mg Tab.er.24h, 25 Mg Oral 2014-10-06 00:00:0 0 No 25 Twice A Day [facility] Nicotine (Nicotine Patch) 1 Each Patch.td24, 1 Nicotin e (Nicotine Patch) 1 Each Patch.td24, 1 2014-10-06 00:00:00 No 1 [facility] Prednisone 10 Mg Tab, 10 Mg Oral Prednisone 10 Mg Tab, 10 Mg Ora l 2014-10-06 00:00:00 No 10 Daily [facility] Simvastatin 20 Mg Tablet, 20 Mg Oral Simvastatin 20 Mg Tablet, 2 0 Mg Oral 2014-10-06 00:00:00 No 20 Bedtime [facility] Azithromycin (Zithromax) 250 Mg Tablet, 250 Mg Oral Az ithromycin (Zithromax) 250 Mg Tablet, 250 Mg Oral 2013-11-23 00:00:00 No 250 [facility] Cyclobenzaprine Hcl 10 Mg Tablet, 10 Mg Oral Cyclobenz aprine Hcl 10 Mg Tablet, 10 Mg Oral 2013-11-23 00:00:00 No 10 Three Times A Day [facility] Glimepiride 4 Mg Tablet, 4 Mg Oral Glimepiride 4 Mg Tablet, 4 Mg Oral 2013-11-23 00:00:00 No 4 Daily [facility] Insulin Glargine,Hum.rec.anlog (Lantus) 100 Unit/1 Ml Cartridge, 25 Units Sub-Q Insulin Glargine,Hum.rec.anlog (Lantus) 100 Unit/1 Ml Cartridge, 25 Units Sub-Q 2013-11-23 00:00:00 No 25 Bedtime [facility] Vital Signs Vital Name Observation Time Observation Value Comments Source Weight 2018-09-15 19:15:00 [facility] Systolic (mm Hg) 2018-09-15 17:15:00 [facility] Diastolic (mm Hg) 2018-09-15 17:15:00 [facility] Heart Rate 2018-09-15 17:15:00 [facility] Respitory Rate 2018-09-15 17:15:00 [facility] Temperature Oral (F) 2018-09-15 17:15:00 97.7 F [facility] Respitory Rate 2018-09-15 13:39:00 [facility] Heart Rate 2018-09-15 13:39:00 [facility] Temperature Oral (F) 2018-09-15 13:39:00 98.1 F [facility] Systolic (mm Hg) 2018-09-15 13:39:00 [facility] Diastolic (mm Hg) 2018-09-15 13:39:00 [facility] Height 2018-09-15 12:12:00 172.72 cm [facility] Weight 2018-09-15 12:12:00 [facility] BMI Calculated 2018-09-15 12:12:00 [facility] Systolic (mm Hg) 2018-09-15 10:46:00 Cal[facility] Diastolic (mm Hg) 2018-09-15 10:46:00 [facility] Respitory Rate 2018-09-15 10:46:00 [facility] Temperature Oral (F) 2018-09-15 10:24:00 98.2 F [facility] BMI Calculated 2018-09-15 03:36:00 [facility] Weight 2018-09-15 03:36:00 [facility] Height 2018-09-15 03:36:00 170.18 cm [facility] Heart Rate 2018-09-15 03:36:00 [facility] Heart Rate 2017-08-17 18:00:00 [facility] Temperature Oral (F) 2017-08-17 18:00:00 97.9 F [facility] Respitory Rate 2017-08-17 18:00:00 [facility] Systolic (mm Hg) 2017-08-17 18:00:00 Calin [facility] [place] Diastolic (mm Hg) 2017-08-17 18:00:00 [facility] Heart Rate 2017-08-17 14:00:00 [facility] Respitory Rate 2017-08-17 14:00:00 [facility] Temperature Oral (F) 2017-08-17 14:00:00 97.3 F [facility] Systolic (mm Hg) 2017-08-17 14:00:00 [facility] [place] Diastolic (mm Hg) 2017-08-17 14:00:00 [facility] Temperature Oral (F) 2017-08-17 10:00:00 98.1 F [facility] Systolic (mm Hg) 2017-08-17 10:00:00 Calin [facility] [place] Diastolic (mm Hg) 2017-08-17 10:00:00 [facility] Respitory Rate 2017-08-17 10:00:00 [facility] Height 2017-08-16 11:00:00 170.18 cm [facility] Weight 2017-08-16 11:00:00 [facility] BMI Calculated 2017-08-16 11:00:00 [facility] Height 2017-08-16 05:12:00 172.72 cm [facility] BMI Calculated 2017-08-16 05:12:00 [facility] Weight 2017-08-16 05:12:00 [facility] Heart Rate 2017-08-16 05:12:00 [facility] Systolic (mm Hg) 2016-02-24 17:00:00 [facility] Diastolic (mm Hg) 2016-02-24 17:00:00 [facility] Respitory Rate 2016-02-24 17:00:00 [facility] Heart Rate 2016-02-24 17:00:00 [facility] Temperature Oral (F) 2016-02-24 17:00:00 99.1 F [facility] Systolic (mm Hg) 2016-02-24 13:00:00 [facility] Diastolic (mm Hg) 2016-02-24 13:00:00 [facility] Temperature Oral (F) 2016-02-24 13:00:00 97.7 F [facility] Heart Rate 2016-02-24 13:00:00 [facility] Respitory Rate 2016-02-24 13:00:00 [facility] Respitory Rate 2016-02-24 12:59:00 [facility] Temperature Oral (F) 2016-02-24 09:00:00 97.9 F [facility] Heart Rate 2016-02-24 09:00:00 [facility] Systolic (mm Hg) 2016-02-24 09:00:00 [facility] Diastolic (mm Hg) 2016-02-24 09:00:00 [facility] Weight 2016-02-23 20:55:00 [facility] BMI Calculated 2016-02-23 20:55:00 [facility] Height 2016-02-23 20:55:00 172.72 cm [facility] Weight 2016-02-23 14:58:00 [facility] Height 2016-02-23 14:58:00 172.72 cm [facility] BMI Calculated 2016-02-23 14:58:00 [facility] Respitory Rate 2015-12-19 21:30:00 [facility] Respitory Rate 2015-12-19 21:15:00 [facility] Systolic (mm Hg) 2015-12-19 21:15:00 [facility] Diastolic (mm Hg) 2015-12-19 21:15:00 [facility] Systolic (mm Hg) 2015-12-19 21:00:00 [facility] Diastolic (mm Hg) 2015-12-19 21:00:00 [facility] Systolic (mm Hg) 2015-12-19 20:21:00 [facility] Diastolic (mm Hg) 2015-12-19 20:21:00 [facility] Respitory Rate 2015-12-19 20:21:00 [facility] Weight 2015-12-19 20:06:00 [facility] BMI Calculated 2015-12-19 20:06:00 [facility] Height 2015-12-19 20:06:00 172.72 cm [facility] Procedures Procedure Date / Time Performed Performing Clinician [facility] e Computed tomography of chest without contrast 2019-10-03 00: 00:00 CHUCK OROURKE [facility] PRQ CARD STENT W/ANGIO 1 VSL 2018-12-27 00:00:00 KAE MORALES [facility] L HRT ARTERY/VENTRICLE ANGIO 2018-12-27 00:00:00 KAE MORALES [facility] section [facility] Ch[facility] Partitioning of stomach using renata [facility] Encounters Start Date/Time End Date/Time Encounter Type Admission Type Attendi [facility] Care Department Encounter ID Source 2019-10-03 01:15:00 2019-10-06 16:52:00 Discharged Inpatient 1 JOSH ROLDAN [facility] [id number] [facility] 2019-05-10 09:20:00 2019-05-10 23:59:00 Outpatient Kevin Mayberry [facility] M[facility] [id number] 2019-04-11 11:37:00 2019-04-22 23:59:00 Discharged Recurring [facility] [id number] [facility] 2018-12-27 14:07:00 2018-12-27 18:04:00 Discharged Inpatient (obs) [facility] [id number] [facility] 2018-09-14 21:25:00 2018-09-15 17:22:00 Outpatient Lela Dumont MHSE MHSE [id number] 2018-09-14 21:25:00 2018-09-15 17:22:00 Outpatient Lela Dumont MHSE MHSE [id number] 2018-08-08 10:46:00 2018-08-12 14:08:00 Discharged Inpatient 1 LORI GIVENS [facility] [id number] [facility] 2017-11-10 10:30:00 2017-11-10 10:30:00 Outpatient Kevin Mayberry [facility] M[facility] [id number] 2017-08-15 23:08:00 2017-08-17 15:00:00 Outpatient Gumaro Bran [facility] [id number] 2017-03-23 12:18:00 2017-03-23 23:59:00 Outpatient Eder Real [facility] M[facility] [id number] 2017-01-05 12:58:00 2017-01-05 23:59:00 Outpatient Alessandra Timmons [facility] M[facility] [id number] 2016-07-29 13:54:00 2016-07-29 23:59:00 Outpatient Alessandra Timmons [facility] M[facility] [id number] 2016-06-24 11:42:00 2016-06-24 23:59:00 Outpatient Alessandra Timmons [facility] M[facility] [id number] 2016-03-09 11:04:00 2016-03-09 23:59:00 Outpatient Addie Eder eleni Ebonie [facility] M[facility] [id number] 2016-02-25 15:38:00 2016-02-25 23:59:00 Outpatient Kevin Mayberry HOIP HOIP [id number] 2016-02-23 09:51:00 2016-02-24 13:27:00 Outpatient Maulik Crowell MHSE MHSE [id number] 2015-12-19 15:10:00 2015-12-19 16:45:00 Outpatient Taiwo Tijerina MHSE MHSE [id number] 2015-12-17 11:53:00 2015-12-17 23:59:00 Outpatient Kevin Mayberry HOIP MHHOIP [id number] 2015-05-09 08:39:00 2015-05-09 23:59:00 Outpatient Kevin Mayberry HOIP MHHOIP [id number] 2015-05-01 14:31:00 2015-05-01 23:59:00 Outpatient Kevin Mayberry HOIP HOIP [id number] 2015-04-19 13:59:00 2015-04-19 23:59:00 Outpatient Kevin Mayberry HOIP MHHOIP [id number] 2015-01-11 09:43:00 2015-01-11 23:59:00 Outpatient Kevin MayberryIE IE [id number] Results Test Description Test Time Test Comments Results Result Comments Source Bedside Glucose 2019-10-06 16:41:00 Test Item Bedside Glucose (test code = 96234-6) 174 70-120 H Meter ID: [id number] [facility] 2019-10-05 22:48:00* Test Item Value Reference Range Interpretation Comments Blood Culture (test code = 13063534) NO GROWTH AFTER 72 HOURS [facility] [id number] 11:35:00* Test Item Value Reference Range Interpretation Comments White Blood Count (test code = 6690-2) 12.07 4.8-10.8 H [facility] [id number] 11:35:00* Test Item Value Reference Range Interpretation Comments Red Blood Count (test code = 789-8) 2.94 3.6-5.1 L [facility]2020-02-13 11:35:00* Test Item Value Reference Range Interpretation Comments Hemoglobin (test code = 52241-0) 8.7 12.0-16.0 L [facility]ematocrit2020-02-13 11:35:00* Test Item Value Reference Range Interpretation Comments Hematocrit (test code = 4544-3) 27.1 34.2-44.1 L [facility] CenterMean Corpuscular [id number] 11:35:00* Test Item Value Reference Range Interpretation Comments Mean Corpuscular Volume (test code = 787-2) 92.2 81-99 [facility] Corpuscular [id number] 11:35:00* Test Item Value Reference Range Interpretation Comments Mean Corpuscular Hemoglobin (test code = 785-6) 29.6 28-32 [facility] Corp[facility] Hemoglobin Concent 2019-10-05 11:35:00* Test Item Value Reference Range Interpretation Comments Mean Corpuscular Hemoglobin Concent (test code = 786-4) 32.1 31-35 [facility] Distribution [id number] 11:35:00* Test Item Value Reference Range Interpretation Comments Red Cell Distribution Width (test code = 67938-1) 18.6 11.7 -14.4 H [facility] CenterPlatelet [id number] 11:35:00* Test Item Value Reference Range Interpretation Comments Platelet Count (test code = 777-3) 282 140-360 [facility] (%) (Auto)2019-10-05 11:35:00 * Test Item Value Reference Range Interpretation Comments Neutrophils (%) (Auto) (test code = 01672-1) 78.5 38.7-80.0 [facility] CenterLymphocytes (%) (Auto)2019-10-05 11:35:00 * Test Item Value Reference Range Interpretation Comments Lymphocytes (%) (Auto) (test code = 736-9) 9.9 18.0-39.1 L [facility] CenterMonocytes (%) (Auto)2019-10-05 11:35:00* Test Item Value Reference Range Interpretation Comments Monocytes (%) (Auto) (test code = 5905-5) 8.5 4.4-11.3 [facility] CenterEosinophils (%) (Auto)2019-10-05 11:35:00 * Test Item Value Reference Range Interpretation Comments Eosinophils (%) (Auto) (test code = 713-8) 2.2 0.0-6.0 [facility] CenterBasophils (%) (Auto)2019-10-05 11:35:00* Test Item Value Reference Range Interpretation Comments Basophils (%) (Auto) (test code = 706-2) 0.4 0.0-1.0 [facility] CenterIM GRANULOCYTES %2019-10-05 11:35:00* Test Item Value Reference Range Interpretation Comments IM GRANULOCYTES % (test code = IM GRANULOCYTES %) 0.5 0.0- 1.0 [facility] CenterNeutrophils # (Auto)2019-10-05 11:35:00* Test Item Value Reference Range Interpretation Comments Neutrophils # (Auto) (test code = 751-8) 9.5 2.1-6.9 H [facility] CenterLymphocytes # (Auto)2019-10-05 11:35:00* Test Item Value Reference Range Interpretation Comments Lymphocytes # (Auto) (test code = 11273-7) 1.2 1.0-3.2 [facility] CenterMonocytes # (Auto)2019-10-05 11:35:00* Test Item Value Reference Range Interpretation Comments Monocytes # (Auto) (test code = 742-7) 1.0 0.2-0.8 H [facility] CenterEosinophils # (Auto)2019-10-05 11:35:00* Test Item Value Reference Range Interpretation Comments Eosinophils # (Auto) (test code = 711-2) 0.3 0.0-0.4 [facility] CenterBasophils # (Auto)2019-10-05 11:35:00* Test Item Value Reference Range Interpretation Comments Basophils # (Auto) (test code = 704-7) 0.1 0.0-0.1 [facility] CenterAbsolute Immature Granulocyte (auto 2019-10-05 11:35:00* Test Item Value Reference Range Interpretation Comments Absolute Immature Granulocyte (auto (edith t code = Absolute Immature Granulocyte (auto) 0.06 0-0.1 [facility] CenterCHEST SINGLE (PORTABLE)2019-10-05 08:15:00 [place] [address] Patient Name: DAYANA RICHARDSON MR #: [id number] : 1960 Age/Sex: 59/F Req #: [id number] Adm Physician: JOSH ROLDAN MD Ordered by: CHUCK OROURKE MD Report #: [id number] Location: ICU Room/Bed: ICU [facility] Procedure: 021-000 5 DX/CHEST SINGLE (PORTABLE) Exam Date: 10/05/19 Augusto bianchi Time: 0445 REPORT STATUS: Signed EXAM: CHEST SINGLE (PORTABLE) DATE: 10/05/2019 5:00 AM INDICATION : Subcutaneous emphysema COMPARISON: CT chest from 10/03/2019, chest radio graph from 10/02/2019 FINDINGS: Tracheostomy cannula identified in stable position. Again identified is subcutaneous emphysema and small amount of pneum omediastinum, slightly improved from the prior examination. The lungs are symm etrically expanded without evidence for new large focal consolidation, pneumot horax, or significant pleural effusion. The cardiomediastinal silhouette is stable in appearance. No acute osseous abnormality is identified. I MPRESSION: No significant interval change from 10/02/2019. Slight interval d ecrease in subcutaneous emphysema and pneumomediastinum. Signed by: Dr. Richard Valdes MD on 10/05/2019 8:18 AM Dictated By: DEYSI VALDES MD Electr onically Signed By: DEYSI VALDES MD on 10/05/19817 Transcribed By: DMITRI on 10/05/19817 COPY TO: CHUCK OROURKE MD Sodium Level 2019-10-05 08:13:00* Test Item Value Reference Range Interpretation Comments Sodium Level (test code = 2951-2) 135 136-145 L [facility] CenterPotassium Mrbbt8416-60-96 08:13:00* Test Item Value Reference Range Interpretation Comments Potassium Level (test code = 2823-3) 3.6 3.5-5.1 [facility] CenterChloride Qafiw2513-43-65 08:13:00* Test Item Value Reference Range Interpretation Comments Chloride Level (test code = 2075-0) 103 98-107 [facility] CenterCarbon Dioxide Zksjx5022-13-75 08:13:00* Test Item Value Reference Range Interpretation Comments Carbon Dioxide Level (test code = 2028-9) 23 22-29 [facility] CenterAnion Lot2275-53-72 08:13:00* Test Item Value Reference Range Interpretation Comments Anion Gap (test code = 11516-8) 12.6 8-16 [facility] CenterBlood Urea Ybmkytfv3131-77-85 08:13:00* Test Item Value Reference Range Interpretation Comments Blood Urea Nitrogen (test code = 3094-0) 18 7-26 [facility] CenterCreatinine2020-02-13 08:13:00* Test Item Value Reference Range Interpretation Comments Creatinine (test code = 2160-0) 0.61 0.57-1.11 [facility] CenterBUN/Creatinine Zvsmf2827-36-49 08:13:00* Test Item Value Reference Range Interpretation Comments BUN/Creatinine Ratio (test code = 3097-3) 30 6-25 H [facility] CenterEstimat Glomerular Filtration Rate 2019-10-05 08:13:00* Test Item Value Reference Range Interpretation Comments Estimat Glomerular Filtration Rate (test code = 988281424) > 60 >60 Ranges were taken from the National Kidney Disease Education Program and the [facility] literature.Reference ranges:60 or greater: Ojuyuu54-17 ( for 3 consecutive months): Chronic kidney disease 15 or less: Kidney failureNorth [facility] Medical CenterGlucose Upvlm8637-03-26 08:13:00* Test Item Value Reference Range Interpretation Comments Glucose Level (test code = OGH1764) 78 74-118 [facility] CenterCalcium Jqnot9076-29-45 08:13:00* Test Item Value Reference Range Interpretation Comments Calcium Level (test code = 59881-8) 7.9 8.4-10.2 L [facility] CenterUrine Skhuxdo1278-24-68 06:58:00* Test Item Value Reference Range Interpretation Comments Urine Culture (test code = 630-4) No Result Data Provided [facility] CenterVitamin B12 Hntiu3018-08-19 00:17:00* Test Item Value Reference Range Interpretation Comments Vitamin B12 Level (test code = 04782-5) 617 213-816 [facility] CenterIron Qmmow6669-49-09 00:03:00* Test Item Value Reference Range Interpretation Comments Iron Level (test code = 2498-4) 21 50-170 L [facility] CenterTotal Iron Binding Rxqxjexm2628-11-63 00:03:00* Test Item Value Reference Range Interpretation Comments Total Iron Binding Capacity (test code = 2500-7) 175 261-4 78 L [facility] CenterPercent Iron Gpsjqjwycq5427-64-84 00:03:00* Test Item Value Reference Range Interpretation Comments Percent Iron Saturation (test code = 2502-3) 12 15-50 L [facility] CenterTransferrin2020-02-13 00:03:00* Test Item Value Reference Range Interpretation Comments Transferrin (test code = 3034-6) 125 180-382 L [facility] CenterFerritin2020-02-13 00:03:00* Test Item Value Reference Range Interpretation Comments Ferritin (test code = 2276-4) 144.73 4.63-204.00 [facility] CenterPercent Reticulocyte Mrhhs0903-60-52 23:39:00* Test Item Value Reference Range Interpretation Comments Percent Reticulocyte Count (test code = 69017-1) 3.9 0.8-2 .2 H [facility] CenterTotal Gsgkfnlzh4789-74-80 06:10:00* Test Item Value Reference Range Interpretation Comments Total Bilirubin (test code = 1975-2) 0.4 0.2-1.2 [facility] CenterAspartate Amino Transf (AST/SGOT) 2019-10-04 06:10:00* Test Item Value Reference Range Interpretation Comments Aspartate Amino Transf (AST/SGOT) (test code = Aspartate Amino Transf (AST/SGOT)) 15 5-34 [facility] CenterAlanine Aminotransferase (ALT/SGPT) 2019-10-04 06:10:00* Test Item Value Reference Range Interpretation Comments Alanine Aminotransferase (ALT/SGPT) (test code = 1742-6) 14 0-55 [facility] CenterTotal Opgjjhj7784-86-04 06:10:00* Test Item Value Reference Range Interpretation Comments Total Protein (test code = 2885-2) 5.2 6.5-8.1 L [facility] CenterAlbumin2020-02-12 06:10:00* Test Item Value Reference Range Interpretation Comments Albumin (test code = 1751-7) 2.2 3.5-5.0 L [facility] CenterGlobulin2020-02-12 06:10:00* Test Item Value Reference Range Interpretation Comments Globulin (test code = 94445-5) 3.0 2.3-3.5 [facility] CenterAlbumin/Globulin Rnnlz8960-76-35 06:10:00 * Test Item Value Reference Range Interpretation Comments Albumin/Globulin Ratio (test code = 1759-0) 0.7 0.8-2.0 L [facility] CenterAlkaline Wzbkzibrczz3901-04-34 06:10:00* Test Item Value Reference Range Interpretation Comments Alkaline Phosphatase (test code = 6768-6) 144 40-150 [facility] CenterCT CHEST ZU2408-63-37 11:32:00 [facility] [address] [place] [address] Patient Name: DAYANA RICHARDSON MR #: [id number] : 1960 Age/Sex: 59/F Req #: [id number] Adm Physician: JOSH ROLDAN MD Ordered by: CHUCK OROURKE MD Report #: [id number] Location: ICU Room/Bed: ICU [facility] Procedure: 0211-[address]/CT CHEST WO Exam Date: 10/03/19 Exam Time: 1050 REPORT STATUS: Signed CT of the chest, without contrast, 10/03/2019. History: Abnormal chest x-ray. Comparison: Chest radiograph dated 10/02/2019. Technique: Multidetector CT scanning of the chest was performed from the level of the thoracic inlet to t he upper abdomen without IV or oral contrast. Dose reduction: The examinat ion was performed according to departmental dose-optimization program which in cludes automated exposure control, adjustment of the mA and/or kV according to patient size and/or use of iterative reconstruction technique. Findings: Tracheostomy cannula is in place and is midlin e. There is extensive pneumomediastinum and subcutaneous emphysema extendin g into the chest wall and neck. The heart is within normal limits of size . There is no pericardial effusion. Atherosclerotic coronary artery calcificat ions are noted. The thoracic aorta is of normal course and caliber. The p ulmonary artery is normal in size. Extensive pneumomediastinum limits evalu ation for pneumothorax but no definitive pneumothorax is visualized. The trachea and central airways are clear. The lungs demonstrate scattered patc hy and groundglass opacities which are nonspecific but may be secondary to alan ma or atypical infection. There is no pleural effusion. No acute osseo us abnormalities are identified. Limited evaluation of the upper abdomen de monstrates no evidence of free intraperitoneal air. No hepatic lesions are vitaly ntified in the visualized portions of the liver. IMPRESSION: 1. Exte nsive subcutaneous emphysema involving the bilateral chest wall and neck. Pneu momediastinum is also present. Evaluation for pneumothorax is limited given th e extensive subcutaneous emphysema and pneumomediastinum however no definite p neumothorax is visualized. 2. Tracheostomy cannula is appropriately positioned and midline. 2. Scattered nonspecific ground glass and patchy opacities throu ghout both lungs which may be secondary to edema or atypical infection. S igned by: Paul Joyce MD on 10/03/2019 11:42 AM Dictated By: PAUL JOYCE MD 1142 Tr anscribed By: DMITRI on 10/03/19 1142 COPY TO: CHUCK OROURKE MD Differential Total Cells Flverua2154-84-88 09:37:00* Test Item Value Reference Range Interpretation Comments Differential Total Cells Counted (test code = Differen tial Total Cells Counted) 100 [facility] CenterNeutrophils % (Manual)2019-10-03 09:37:00 * Test Item Value Reference Range Interpretation Comments Neutrophils % (Manual) (test code = 03049-3) 89 40-74 H [facility] CenterLymphocytes % (Manual)2019-10-03 09:37:00 * Test Item Value Reference Range Interpretation Comments Lymphocytes % (Manual) (test code = 737-7) 4 19-48 L [facility] CenterMonocytes % (Manual)2019-10-03 09:37:00* Test Item Value Reference Range Interpretation Comments Monocytes % (Manual) (test code = 744-3) 7 3.4-9.0 [facility] CenterPlatelet Ehhfbmfx4079-51-31 09:37:00* Test Item Value Reference Range Interpretation Comments Platelet Estimate (test code = 53858-8) ADEQUATE [facility] CenterPlatelet Morphology Popxxgp3669-84-83 09:37:00* Test Item Value Reference Range Interpretation Comments Platelet Morphology Comment (test code = 88593-2) FEW GIANT [facility] CenterHypochromasia2020-02-11 09:37:00* Test Item Value Reference Range Interpretation Comments Hypochromasia (test code = 728-6) SLIGHT [facility] CenterMicrocytosis2020-02-11 09:37:00* Test Item Value Reference Range Interpretation Comments Microcytosis (test code = 741-9) SLIGHT [facility]chistocytes2020-02-11 09:37:00* Test Item Value Reference Range Interpretation Comments Schistocytes (test code = 800-3) FEW [facility] CenterTriglycerides Dihun6514-84-35 06:39:00* Test Item Value Reference Range Interpretation Comments Triglycerides Level (test code = 2571-8) 48 0-149 [facility] CenterCholesterol Ckyhl5839-43-16 06:39:00* Test Item Value Reference Range Interpretation Comments Cholesterol Level (test code = 2093-3) 89 0-199 Less than 200 mg/dL Low Rurx820 - 239 mg/dL Borderline Iuiq674 m g/dl and greater High Risk [facility] CenterLDL Ndapowotnoj3902-47-67 06:39:00* Test Item Value Reference Range Interpretation Comments LDL Cholesterol (test code = 2089-1) 36 60-130 L [facility] CenterHDL Wbfnebryjic9420-42-44 06:39:00* Test Item Value Reference Range Interpretation Comments HDL Cholesterol (test code = 2085-9) 43 40-60 [facility] CenterCholesterol/HDL Rvmfm5099-79-92 06:39:00 * Test Item Value Reference Range Interpretation Comments Cholesterol/HDL Ratio (test code = 9830-1) 2.1 3.0-3.6 L [facility] CenterHemoglobin A1c Ghppbgx6037-45-63 06:38:00 * Test Item Value Reference Range Interpretation Comments Hemoglobin A1c Percent (test code = Hemoglobin A1c Percent) 8.9 4.0-7.0 H [facility] CenterLactic Acid Kgoki8159-34-15 02:23:00* Test Item Value Reference Range Interpretation Comments Lactic Acid Level (test code = Lactic Acid Level) 1.8 0.5- 2.0 [facility] CenterUrine VRP4628-81-34 23:20:00* Test Item Value Reference Range Interpretation Comments Urine WBC (test code = 5821-4) >50 0-5 H [facility] CenterUrine YVT1611-18-93 23:20:00* Test Item Value Reference Range Interpretation Comments Urine RBC (test code = 97597-9) 11-20 0-5 H [facility] CenterUrine Tywkscti0544-54-59 23:20:00* Test Item Value Reference Range Interpretation Comments Urine Bacteria (test code = 17239-0) MODERATE NONE H [facility] CenterUrine Epithelial Wtxlb5694-89-41 23:20:00 * Test Item Value Reference Range Interpretation Comments Urine Epithelial Cells (test code = 38726-3) MANY NONE [facility] CenterUrine Jtueg8879-32-74 23:20:00* Test Item Value Reference Range Interpretation Comments Urine Yeast (test code = 52074-6) MODERATE NONE H [facility] CenterCHEST SINGLE (PORTABLE)2019-10-02 23:06:00 [facility] [address] [place] [address] Patient Name: DAYANA RICHARDSON MR #: [id number] : 1960 Age/Sex: 59/F Req #: [id number] Adm Physician: Ordered by: LALO TOMAS DO Report #: [id number] Location: ER Room/Bed: Procedure: [id number] D X/CHEST SINGLE (PORTABLE) Exam Date: Exam Time: REPORT STATUS: Signed EXAMINATION: CHEST SINGLE (PORTABLE) INDICATION: Dislodged tracheostomy COM PARISON: Chest x-ray 08/08/2018 FINDINGS: TUBES and LINES: Tracheostomy tube projects within the mid trachea. LUNGS: Normal lung volu mes. Lungs are clear. No consolidations. Mild pulmonary vascular prominence. PLEURA: No pleural effusion or pneumothorax. HEART AND MEDIASTINUM: The cardiomediastinal silhouette is within normal size limits. Small amount o f pneumomediastinum. BONES AND SOFT TISSUES: Degenerative changes in the sp ine and shoulders. Extensive subcutaneous emphysema in the bilateral ches t and base of neck soft tissues. UPPER ABDOMEN: No free air under the zurdo phragm. IMPRESSION: Pneumomediastinum and extensive subcutaneous emphysema in the bilateral chest and base of neck soft tissues. Mild pulmona ry vascular congestion. Signed by: Scout Friedman DO on 10/02/2019 11:09 PM Dictated By: SCOUT FRIEDMAN DO 08 Transcribed By: DMITRI on 10/02/192308 COPY TO: LALO TOMAS DO B-Type Natriuretic Lewkcec4282-50-49 23:05:00* Test Item Value Reference Range Interpretation Comments B-Type Natriuretic Peptide (test code = 78512-7) 92.2 0-100 [facility] CenterCreatine Qbffop6200-70-65 23:05:00* Test Item Value Reference Range Interpretation Comments Creatine Kinase (test code = 2157-6) 15 29-168 L [facility] CenterCreatine Kinase ED5561-17-54 23:05:00* Test Item Value Reference Range Interpretation Comments Creatine Kinase MB (test code = 14202-3) 0.70 0-5.0 [facility] CenterTroponin [id number] 23:05:00* Test Item Value Reference Range Interpretation Comments Troponin I (test code = UYD0329) 0.008 0-0.300 [facility] CenterUrine Irihz6653-33-33 22:59:00* Test Item Value Reference Range Interpretation Comments Urine Color (test code = 5778-6) YELLOW YELLOW [facility] CenterUrine Lsparll1273-50-32 22:59:00* Test Item Value Reference Range Interpretation Comments Urine Clarity (test code = 44571-3) CLOUDY CLEAR H [facility] CenterUrine Specific Tiybjcw3639-67-72 22:59:00 * Test Item Value Reference Range Interpretation Comments Urine Specific [place] (test code = 5811-5) 1.015 1.010-1.02 5 [facility] CenterUrine rA6907-39-59 22:59:00* Test Item Value Reference Range Interpretation Comments Urine pH (test code = 27128-9) 8.5 5-7 [facility] CenterUrine Leukocyte Qlzmmlhd7183-83-33 22:59:00* Test Item Value Reference Range Interpretation Comments Urine Leukocyte Esterase (test code = 5799-2) TRACE NEGATIVE H [facility] CenterUrine Qujghdg2486-37-18 22:59:00* Test Item Value Reference Range Interpretation Comments Urine Nitrite (test code = 45733-2) NEGATIVE NEGATIVE [facility] CenterUrine Negssyw4733-90-29 22:59:00* Test Item Value Reference Range Interpretation Comments Urine Protein (test code = 5804-0) NEGATIVE NEGATIVE [facility] CenterUrine Glucose (UA)2019-10-02 22:59:00* Test Item Value Reference Range Interpretation Comments Urine Glucose (UA) (test code = 2349-9) 3+ NEGATIVE H [facility] CenterUrine Yqurdtg9951-07-22 22:59:00* Test Item Value Reference Range Interpretation Comments Urine Ketones (test code = 10806-8) NEGATIVE NEGATIVE [facility] CenterUrine Dwcjeumtddox9493-09-27 22:59:00* Test Item Value Reference Range Interpretation Comments Urine Urobilinogen (test code = 24546-8) 0.2 0.2-1 [facility] CenterUrine Vvrhlkciw8387-00-81 22:59:00* Test Item Value Reference Range Interpretation Comments Urine Bilirubin (test code = 1978-6) NEGATIVE NEGATIVE [facility] CenterUrine Gwphx1206-71-60 22:59:00* Test Item Value Reference Range Interpretation Comments Urine Blood (test code = 70884-9) TRACE NEGATIVE H [facility] CenterProthrombin Ntuh8217-80-74 22:44:00* Test Item Value Reference Range Interpretation Comments Prothrombin Time (test code = 5902-2) 14.4 11.9-14.5 [facility] CenterProthromb Time International Ratio 2019-10-02 22:44:00* Test Item Value Reference Range Interpretation Comments Prothromb Time International Ratio (test code = 6301-6) 1.05 Oral Anticoagulant Therapy INR Values:1. Low Intensity Therapy 1.5 - 2.02 . Moderate Intensity Therapy 2.0 - 3.03. High Intensity Therapy(1) 2.5 - 3. 54. High Intensity Therapy(2) 3.0 - 4.05. Panic Value INR > 5.0 [facility] CenterActivated Partial Thromboplast Time 2019-10-02 22:44:00* Test Item Value Reference Range Interpretation Comments Activated Partial Thromboplast Time (test code = 79186-7) 25.8 23.8-35.5 [facility] CenterArterial Blood fF1229-08-22 22:38:00* Test Item Value Reference Range Interpretation Comments Arterial Blood pH (test code = 2744-1) 7.40 7.31-7.41 [facility] CenterArterial Blood Partial Pressure CO2 2019-10-02 22:38:00* Test Item Value Reference Range Interpretation Comments Arterial Blood Partial Pressure CO2 (test code = 2019-8) 57 41-51 H [facility] CenterArterial Blood Partial Pressure O2 2019-10-02 22:38:00* Test Item Value Reference Range Interpretation Comments Arterial Blood Partial Pressure O2 (test code = 2019-8) 275 80-105 H [facility] CenterArterial Blood SLP80146-75-52 22:38:00* Test Item Value Reference Range Interpretation Comments Arterial Blood HCO3 (test code = 1960-4) 35 23-28 H [facility] CenterArterial Blood Base Lndyjv2191-89-54 22:38:00* Test Item Value Reference Range Interpretation Comments Arterial Blood Base Excess (test code = 1925-7) 11.0 -2-3 H [facility] CenterArterial Blood Oxygen Saturation 2019-10-02 22:38:00* Test Item Value Reference Range Interpretation Comments Arterial Blood Oxygen Saturation (test code = 2708-6) 100.0 95-98 H [facility] CenterFiO22020-02-10 22:38:00* Test Item Value Reference Range Interpretation Comments FiO2 (test code = FiO2) 100 Trach Pt on NRM (100%)FiO2 [facility] CenterCBC W/AUTO SBYL1278-90-30 10:54:00* Test Item Value Reference Range Interpretation Comments WHITE BLOOD CELL (test code = WBC) 17.0 K/mm3 4.5-12.5 H RED BLOOD CELL (test code = RBC) 2.77 mill/mm3 3.7-5.2 L HEMOGLOBIN (test code = HGB) 7.6 gram/dL 11.5-15.5 L HEMATOCRIT (test code = HCT) 25.5 % 36.0-46.0 L MEAN CELL VOLUME (test code = MCV) 92.1 fL 80-98 N MEAN CELL HGB (test code = MCH) 27.4 picogram 27.0-33.0 N MEAN CELL HGB CONCETRATION (test code = MCHC) 29.8 gram/dL 33.0-36. 0 L RED CELL DISTRIBUTION WIDTH (test code = RDW) 21.6 % 11.6-16. 2 H RED CELL DISTRIBUTION WIDTH SD (test code = RDW-SD) 72.4 fL 37 .0-51.0 H PLATELET COUNT (test code = PLT) 229 K/mm3 150-450 N MEAN PLATELET VOLUME (test code = MPV) 13.6 fL 6.7-11.0 H NEUTROPHIL % (test code = NT%) 86.0 % 39.0-69.0 H IMMATURE GRANULOCYTE % (test code = IG%) 0.7 % 0.0-5.0 N LYMPHOCYTE % (test code = LY%) 5.3 % 25.0-55.0 L MONOCYTE % (test code = MO%) 6.5 % 0.0-10.0 N EOSINOPHIL % (test code = EO%) 1.3 % 0.0-5.0 N BASOPHIL % (test code = BA%) 0.2 % 0.0-1.0 N NUCLEATED RBC % (test code = NRBC%) 0.0 % 0-0 N NEUTROPHIL # (test code = NT#) 14.62 K/mm3 1.8-7.7 H IMMATURE GRANULOCYTE # (test code = IG#) 0.12 x10 3/uL 0-0.03 H LYMPHOCYTE # (test code = LY#) 0.90 K/mm3 1.0-5.0 L MONOCYTE # (test code = MO#) 1.10 K/mm3 0-0.8 H EOSINOPHIL # (test code = EO#) 0.22 K/mm3 0.0-0.5 N BASOPHIL # (test code = BA#) 0.03 K/mm3 0.0-0.2 N NUCLEATED RBC # (test code = NRBC#) 0.00 K/mm3 0.0-0.1 N MANUAL DIFF REQUIRED (test code = MDIFF) NO, ONLY SCAN NEEDED DIFFERENTIAL IQOI2410-28-51 10:54:00* Test Item Value Reference Range Interpretation Comments STAIN ACCEPTABILITY (test code = STN ACCEPTABLE) STAIN ACCEPTABLE POLYCHROMASIA (test code = POLC) 2+ POIKILOCYTOSIS (test code = POIK) 1+ ANISOCYTOSIS (test code = ANISO) 1+ MACROCYTOSIS (test code = MACR) 1+ PLATELET ESTIMATE (test code = PLTEST) ADEQUATE PLATELET MORPHOLOGY (test code = PLTMORPH) SIZE VARIABLE CREATINE KINASE (CK)2019-09-25 10:47:00* Test Item Value Reference Range Interpretation Comments CREATINE KINASE (CK) (test code = CK) 10 IUnit/L 26-208 L BASIC METABOLIC SLMLR8821-03-87 10:43:00* Test Item Value Reference Range Interpretation Comments SODIUM (test code = NA) 147 mmol/L 136-145 H POTASSIUM (test code = K) 4.6 mmol/L 3.5-5.1 N CHLORIDE (test code = CL) 109.0 mmol/L 98-107 H CARBON DIOXIDE (test code = CO2) 36.0 mmol/L 21-32 H ANION GAP (test code = GAP) 6.6 10-20 L GLUCOSE (test code = GLU) 252 mg/dL 74-106 H BLOOD UREA NITROGEN (test code = BUN) 32 mg/dL 7-18 H GLOMERULAR FILTRATION RATE (test code = GFR) > 60 mL/min >=60 Estimated GFR by using Modified MDRD formula.Chronic kidney disease is defined as either kidney damageor GFR <60 mL/min/1.73 m2 for >3 months. CREATININE (test code = CREAT) 0.70 mg/dL 0.55-1.02 N Note change in reference range due to change in reagent. BUN/CREATININE RATIO (test code = BUN/CREA) 45.7 10-20 H CALCIUM (test code = CA) 8.7 mg/dL 8.5-10.1 N MAXQRJWTVG1179-77-56 10:43:00* Test Item Value Reference Range Interpretation Comments PHOSPHORUS (test code = PHOS) 2.6 mg/dL 2.5-4.9 N AWVIKZPLY9476-03-65 10:43:00* Test Item Value Reference Range Interpretation Comments MAGNESIUM (test code = MAG) 2.0 mg/dL 1.8-2.4 N CALCIUM BHKQBBE9932-31-13 10:43:00* Test Item Value Reference Range Interpretation Comments CALCIUM IONIZED (test code = DINAH) 1.27 mmol/L 1.12-1.32 N BASIC METABOLIC [id number] 10:36:00* Test Item Value Reference Range Interpretation Comments SODIUM (test code = NA) mmol/L 136-145 POTASSIUM (test code = K) mmol/L 3.5-5.1 CHLORIDE (test code = CL) mmol/L 98-107 CARBON DIOXIDE (test code = CO2) mmol/L 21-32 ANION GAP (test code = GAP) 10-20 GLUCOSE (test code = GLU) mg/dL 74-106 BLOOD UREA NITROGEN (test code = BUN) mg/dL 7-18 GLOMERULAR FILTRATION RATE (test code = GFR) mL/min >=60 CREATININE (test code = CREAT) mg/dL 0.55-1.02 BUN/CREATININE RATIO (test code = BUN/CREA) 10-20 CALCIUM (test code = CA) mg/dL 8.5-10.1 [id number] 10:36:00* Test Item Value Reference Range Interpretation Comments PHOSPHORUS (test code = PHOS) mg/dL 2.5-4.9 [id number] 10:36:00* Test Item Value Reference Range Interpretation Comments MAGNESIUM (test code = MAG) mg/dL 1.8-2.4 CALCIUM [id number] 10:36:00* Test Item Value Reference Range Interpretation Comments CALCIUM IONIZED (test code = DINAH) 1.27 mmol/L 1.12-1.32 N [id number] 10:33:00* Test Item Value Reference Range Interpretation Comments GLUBED (test code = GLUBED) 235 mg/dL 74-106 H Performed by certified carousel operator at [facility] CBC W/AUTO [id number] 10:26:00* Test Item Value Reference Range Interpretation Comments WHITE BLOOD CELL (test code = WBC) 17.0 K/mm3 4.5-12.5 H RED BLOOD CELL (test code = RBC) 2.77 mill/mm3 3.7-5.2 L HEMOGLOBIN (test code = HGB) 7.6 gram/dL 11.5-15.5 L HEMATOCRIT (test code = HCT) 25.5 % 36.0-46.0 L MEAN CELL VOLUME (test code = MCV) 92.1 fL 80-98 N MEAN CELL HGB (test code = MCH) 27.4 picogram 27.0-33.0 N MEAN CELL HGB CONCETRATION (test code = MCHC) 29.8 gram/dL 33.0-36. 0 L RED CELL DISTRIBUTION WIDTH (test code = RDW) 21.6 % 11.6-16. 2 H RED CELL DISTRIBUTION WIDTH SD (test code = RDW-SD) 72.4 fL 37 .0-51.0 H PLATELET COUNT (test code = PLT) 229 K/mm3 150-450 N MEAN PLATELET VOLUME (test code = MPV) 13.6 fL 6.7-11.0 H NEUTROPHIL % (test code = NT%) 86.0 % 39.0-69.0 H IMMATURE GRANULOCYTE % (test code = IG%) 0.7 % 0.0-5.0 N LYMPHOCYTE % (test code = LY%) 5.3 % 25.0-55.0 L MONOCYTE % (test code = MO%) 6.5 % 0.0-10.0 N EOSINOPHIL % (test code = EO%) 1.3 % 0.0-5.0 N BASOPHIL % (test code = BA%) 0.2 % 0.0-1.0 N NUCLEATED RBC % (test code = NRBC%) 0.0 % 0-0 N NEUTROPHIL # (test code = NT#) 14.62 K/mm3 1.8-7.7 H IMMATURE GRANULOCYTE # (test code = IG#) 0.12 x10 3/uL 0-0.03 H LYMPHOCYTE # (test code = LY#) 0.90 K/mm3 1.0-5.0 L MONOCYTE # (test code = MO#) 1.10 K/mm3 0-0.8 H EOSINOPHIL # (test code = EO#) 0.22 K/mm3 0.0-0.5 N BASOPHIL # (test code = BA#) 0.03 K/mm3 0.0-0.2 N NUCLEATED RBC # (test code = NRBC#) 0.00 K/mm3 0.0-0.1 N MANUAL DIFF REQUIRED (test code = MDIFF) NO, ONLY SCAN NEEDED DIFFERENTIAL [id number] 10:26:00* Test Item Value Reference Range Interpretation Comments STAIN ACCEPTABILITY (test code = STN ACCEPTABLE) CABOT RINGS (test code = CAB) MORPHOLOGY COMMENT (test code = MOC) PLATELET ESTIMATE (test code = PLTEST) PLATELET MORPHOLOGY (test code = PLTMORPH) CBC W/AUTO [id number] 10:26:00* Test Item Value Reference Range Interpretation Comments WHITE BLOOD CELL (test code = WBC) 17.0 K/mm3 4.5-12.5 H RED BLOOD CELL (test code = RBC) 2.77 mill/mm3 3.7-5.2 L HEMOGLOBIN (test code = HGB) 7.6 gram/dL 11.5-15.5 L HEMATOCRIT (test code = HCT) 25.5 % 36.0-46.0 L MEAN CELL VOLUME (test code = MCV) 92.1 fL 80-98 N MEAN CELL HGB (test code = MCH) 27.4 picogram 27.0-33.0 N MEAN CELL HGB CONCETRATION (test code = MCHC) 29.8 gram/dL 33.0-36. 0 L RED CELL DISTRIBUTION WIDTH (test code = RDW) 21.6 % 11.6-16. 2 H RED CELL DISTRIBUTION WIDTH SD (test code = RDW-SD) 72.4 fL 37 .0-51.0 H PLATELET COUNT (test code = PLT) 229 K/mm3 150-450 N MEAN PLATELET VOLUME (test code = MPV) 13.6 fL 6.7-11.0 H NEUTROPHIL % (test code = NT%) 86.0 % 39.0-69.0 H IMMATURE GRANULOCYTE % (test code = IG%) 0.7 % 0.0-5.0 N LYMPHOCYTE % (test code = LY%) 5.3 % 25.0-55.0 L MONOCYTE % (test code = MO%) 6.5 % 0.0-10.0 N EOSINOPHIL % (test code = EO%) 1.3 % 0.0-5.0 N BASOPHIL % (test code = BA%) 0.2 % 0.0-1.0 N NUCLEATED RBC % (test code = NRBC%) 0.0 % 0-0 N NEUTROPHIL # (test code = NT#) 14.62 K/mm3 1.8-7.7 H IMMATURE GRANULOCYTE # (test code = IG#) 0.12 x10 3/uL 0-0.03 H LYMPHOCYTE # (test code = LY#) 0.90 K/mm3 1.0-5.0 L MONOCYTE # (test code = MO#) 1.10 K/mm3 0-0.8 H EOSINOPHIL # (test code = EO#) 0.22 K/mm3 0.0-0.5 N BASOPHIL # (test code = BA#) 0.03 K/mm3 0.0-0.2 N NUCLEATED RBC # (test code = NRBC#) 0.00 K/mm3 0.0-0.1 N MANUAL DIFF REQUIRED (test code = MDIFF) NO, ONLY SCAN NEEDED DIFFERENTIAL [id number] 10:26:00* Test Item Value Reference Range Interpretation Comments STAIN ACCEPTABILITY (test code = STN ACCEPTABLE) MORPHOLOGY COMMENT (test code = MOC) PLATELET ESTIMATE (test code = PLTEST) PLATELET MORPHOLOGY (test code = PLTMORPH) CBC W/AUTO [id number] 10:26:00* Test Item Value Reference Range Interpretation Comments WHITE BLOOD CELL (test code = WBC) 17.0 K/mm3 4.5-12.5 H RED BLOOD CELL (test code = RBC) 2.77 mill/mm3 3.7-5.2 L HEMOGLOBIN (test code = HGB) 7.6 gram/dL 11.5-15.5 L HEMATOCRIT (test code = HCT) 25.5 % 36.0-46.0 L MEAN CELL VOLUME (test code = MCV) 92.1 fL 80-98 N MEAN CELL HGB (test code = MCH) 27.4 picogram 27.0-33.0 N MEAN CELL HGB CONCETRATION (test code = MCHC) 29.8 gram/dL 33.0-36. 0 L RED CELL DISTRIBUTION WIDTH (test code = RDW) 21.6 % 11.6-16. 2 H RED CELL DISTRIBUTION WIDTH SD (test code = RDW-SD) 72.4 fL 37 .0-51.0 H PLATELET COUNT (test code = PLT) 229 K/mm3 150-450 N MEAN PLATELET VOLUME (test code = MPV) 13.6 fL 6.7-11.0 H NEUTROPHIL % (test code = NT%) 86.0 % 39.0-69.0 H IMMATURE GRANULOCYTE % (test code = IG%) 0.7 % 0.0-5.0 N LYMPHOCYTE % (test code = LY%) 5.3 % 25.0-55.0 L MONOCYTE % (test code = MO%) 6.5 % 0.0-10.0 N EOSINOPHIL % (test code = EO%) 1.3 % 0.0-5.0 N BASOPHIL % (test code = BA%) 0.2 % 0.0-1.0 N NUCLEATED RBC % (test code = NRBC%) 0.0 % 0-0 N NEUTROPHIL # (test code = NT#) 14.62 K/mm3 1.8-7.7 H IMMATURE GRANULOCYTE # (test code = IG#) 0.12 x10 3/uL 0-0.03 H LYMPHOCYTE # (test code = LY#) 0.90 K/mm3 1.0-5.0 L MONOCYTE # (test code = MO#) 1.10 K/mm3 0-0.8 H EOSINOPHIL # (test code = EO#) 0.22 K/mm3 0.0-0.5 N BASOPHIL # (test code = BA#) 0.03 K/mm3 0.0-0.2 N NUCLEATED RBC # (test code = NRBC#) 0.00 K/mm3 0.0-0.1 N MANUAL DIFF REQUIRED (test code = MDIFF) NO, ONLY SCAN NEEDED DIFFERENTIAL [id number] 10:26:00* Test Item Value Reference Range Interpretation Comments STAIN ACCEPTABILITY (test code = STN ACCEPTABLE) MORPHOLOGY COMMENT (test code = MOC) PLATELET ESTIMATE (test code = PLTEST) PLATELET MORPHOLOGY (test code = PLTMORPH) CBC W/AUTO [id number] 10:26:00* Test Item Value Reference Range Interpretation Comments WHITE BLOOD CELL (test code = WBC) 17.0 K/mm3 4.5-12.5 H RED BLOOD CELL (test code = RBC) 2.77 mill/mm3 3.7-5.2 L HEMOGLOBIN (test code = HGB) 7.6 gram/dL 11.5-15.5 L HEMATOCRIT (test code = HCT) 25.5 % 36.0-46.0 L MEAN CELL VOLUME (test code = MCV) 92.1 fL 80-98 N MEAN CELL HGB (test code = MCH) 27.4 picogram 27.0-33.0 N MEAN CELL HGB CONCETRATION (test code = MCHC) 29.8 gram/dL 33.0-36. 0 L RED CELL DISTRIBUTION WIDTH (test code = RDW) 21.6 % 11.6-16. 2 H RED CELL DISTRIBUTION WIDTH SD (test code = RDW-SD) 72.4 fL 37 .0-51.0 H PLATELET COUNT (test code = PLT) 229 K/mm3 150-450 N MEAN PLATELET VOLUME (test code = MPV) 13.6 fL 6.7-11.0 H NEUTROPHIL % (test code = NT%) 86.0 % 39.0-69.0 H IMMATURE GRANULOCYTE % (test code = IG%) 0.7 % 0.0-5.0 N LYMPHOCYTE % (test code = LY%) 5.3 % 25.0-55.0 L MONOCYTE % (test code = MO%) 6.5 % 0.0-10.0 N EOSINOPHIL % (test code = EO%) 1.3 % 0.0-5.0 N BASOPHIL % (test code = BA%) 0.2 % 0.0-1.0 N NUCLEATED RBC % (test code = NRBC%) 0.0 % 0-0 N NEUTROPHIL # (test code = NT#) 14.62 K/mm3 1.8-7.7 H IMMATURE GRANULOCYTE # (test code = IG#) 0.12 x10 3/uL 0-0.03 H LYMPHOCYTE # (test code = LY#) 0.90 K/mm3 1.0-5.0 L MONOCYTE # (test code = MO#) 1.10 K/mm3 0-0.8 H EOSINOPHIL # (test code = EO#) 0.22 K/mm3 0.0-0.5 N BASOPHIL # (test code = BA#) 0.03 K/mm3 0.0-0.2 N NUCLEATED RBC # (test code = NRBC#) 0.00 K/mm3 0.0-0.1 N MANUAL DIFF REQUIRED (test code = MDIFF) NO, ONLY SCAN NEEDED DIFFERENTIAL [id number] 10:26:00* Test Item Value Reference Range Interpretation Comments STAIN ACCEPTABILITY (test code = STN ACCEPTABLE) CABOT RINGS (test code = CAB) MORPHOLOGY COMMENT (test code = MOC) PLATELET ESTIMATE (test code = PLTEST) PLATELET MORPHOLOGY (test code = PLTMORPH) - XR CHEST 1 [id number] 07:39:00 FAX: Josh Roldan MD [phone] [place]: B St: ADM FAX: Kevin Bass MD [phone] FAX: Nely Gray MD [phone] Name: DAYANA RICHARDSON [facility] : 1960 Age/S: 59/F Saumya Campoverde Unit #: [id number] Loc: [address] [place] [address] Phys: Nely Gray MD Acct: [id number] Dis Date: Status: ADM IN PH ONE #: [phone] Exam Date: 09/25/2019 0541 FAX #: [phone] Reason: copd EXAMS: CPT CODE: [id number] XR CHEST 1 V 52663 CLINICAL HISTO RY: copd TECHNIQUE: AP chest x-ray COMPARISON: 0 IMPRESSION: No significant interval change. Mild left airspace opacification/atelectasis, greater on the left. No pl eural effusion. Normal heart size.. Tracheostomy tube. LOCATION: [facility] at 0739 Reported and sign ed by: Steph Gray D.O. CC: Josh Roldan MD; Kevin Veronica MD; Nely Gray MD Technologist: CAMERON BOONE JR Trnscrd Date/Time/By: 09/25/2019 (0739) : By: [email or web address] Or ig Print D/T: S: 09/25/2019 (0743) PAGE 1 Signed Report [id number] 04:33:00* Test Item Value Reference Range Interpretation Comments GLUBED (test code = GLUBED) 210 mg/dL 74-106 H Performed by certified carousel operator at [facility] [id number] 22:30:00* Test Item Value Reference Range Interpretation Comments GLUBED (test code = GLUBED) 275 mg/dL 74-106 H Performed by certified carousel operator at [facility] [id number] 17:04:00* Test Item Value Reference Range Interpretation Comments GLUBED (test code = GLUBED) 284 mg/dL 74-106 H Performed by certified carousel operator at [facility] [id number] 12:29:00* Test Item Value Reference Range Interpretation Comments GLUBED (test code = GLUBED) 297 mg/dL 74-106 H Performed by certified carousel operator at [facility] [id number] 04:43:00* Test Item Value Reference Range Interpretation Comments GLUBED (test code = GLUBED) 216 mg/dL 74-106 H Performed by certified carousel operator at [facility] CBC W/AUTO [id number] 01:37:00* Test Item Value Reference Range Interpretation Comments WHITE BLOOD CELL (test code = WBC) 17.1 K/mm3 4.5-12.5 H RED BLOOD CELL (test code = RBC) 2.98 mill/mm3 3.7-5.2 L HEMOGLOBIN (test code = HGB) 8.3 gram/dL 11.5-15.5 L HEMATOCRIT (test code = HCT) 27.5 % 36.0-46.0 L MEAN CELL VOLUME (test code = MCV) 92.3 fL 80-98 N MEAN CELL HGB (test code = MCH) 27.9 picogram 27.0-33.0 N MEAN CELL HGB CONCETRATION (test code = MCHC) 30.2 gram/dL 33.0-36. 0 L RED CELL DISTRIBUTION WIDTH (test code = RDW) 21.7 % 11.6-16. 2 H RED CELL DISTRIBUTION WIDTH SD (test code = RDW-SD) 72.5 fL 37 .0-51.0 H PLATELET COUNT (test code = PLT) 218 K/mm3 150-450 N MEAN PLATELET VOLUME (test code = MPV) 13.5 fL 6.7-11.0 H NEUTROPHIL % (test code = NT%) 82.2 % 39.0-69.0 H IMMATURE GRANULOCYTE % (test code = IG%) 1.1 % 0.0-5.0 N LYMPHOCYTE % (test code = LY%) 8.5 % 25.0-55.0 L MONOCYTE % (test code = MO%) 7.9 % 0.0-10.0 N EOSINOPHIL % (test code = EO%) 0.2 % 0.0-5.0 N BASOPHIL % (test code = BA%) 0.1 % 0.0-1.0 N NUCLEATED RBC % (test code = NRBC%) 0.0 % 0-0 N NEUTROPHIL # (test code = NT#) 14.01 K/mm3 1.8-7.7 H IMMATURE GRANULOCYTE # (test code = IG#) 0.18 x10 3/uL 0-0.03 H LYMPHOCYTE # (test code = LY#) 1.45 K/mm3 1.0-5.0 N MONOCYTE # (test code = MO#) 1.35 K/mm3 0-0.8 H EOSINOPHIL # (test code = EO#) 0.04 K/mm3 0.0-0.5 N BASOPHIL # (test code = BA#) 0.02 K/mm3 0.0-0.2 N NUCLEATED RBC # (test code = NRBC#) 0.00 K/mm3 0.0-0.1 N MANUAL DIFF REQUIRED (test code = MDIFF) NO, ONLY SCAN NEEDED DIFFERENTIAL [id number] 01:37:00* Test Item Value Reference Range Interpretation Comments STAIN ACCEPTABILITY (test code = STN ACCEPTABLE) STAIN ACCEPTABLE POLYCHROMASIA (test code = POLC) 2+ HYPOCHROMIA (test code = HYPO) 1+ POIKILOCYTOSIS (test code = POIK) 1+ ANISOCYTOSIS (test code = ANISO) 1+ MACROCYTOSIS (test code = MACR) 1+ TARGET CELLS (test code = TGT) 1+ PLATELET ESTIMATE (test code = PLTEST) ADEQUATE PLATELET MORPHOLOGY (test code = PLTMORPH) SIZE VARIABLE BASIC METABOLIC [id number] 01:20:00* Test Item Value Reference Range Interpretation Comments SODIUM (test code = NA) 146 mmol/L 136-145 H POTASSIUM (test code = K) 4.2 mmol/L 3.5-5.1 N CHLORIDE (test code = CL) 109.0 mmol/L 98-107 H CARBON DIOXIDE (test code = CO2) 34.0 mmol/L 21-32 H ANION GAP (test code = GAP) 7.2 10-20 L GLUCOSE (test code = GLU) 191 mg/dL 74-106 H BLOOD UREA NITROGEN (test code = BUN) 35 mg/dL 7-18 H GLOMERULAR FILTRATION RATE (test code = GFR) > 60 mL/min >=60 Estimated GFR by using Modified MDRD formula.Chronic kidney disease is defined as either kidney damageor GFR <60 mL/min/1.73 m2 for >3 months. CREATININE (test code = CREAT) 0.70 mg/dL 0.55-1.02 N Note change in reference range due to change in reagent. BUN/CREATININE RATIO (test code = BUN/CREA) 50.0 10-20 H CALCIUM (test code = CA) 8.5 mg/dL 8.5-10.1 N [id number] 01:20:00* Test Item Value Reference Range Interpretation Comments PHOSPHORUS (test code = PHOS) 2.8 mg/dL 2.5-4.9 N [id number] 01:20:00* Test Item Value Reference Range Interpretation Comments MAGNESIUM (test code = MAG) 1.8 mg/dL 1.8-2.4 N BASIC METABOLIC [id number] 01:09:00* Test Item Value Reference Range Interpretation Comments SODIUM (test code = NA) 146 mmol/L 136-145 H POTASSIUM (test code = K) 4.2 mmol/L 3.5-5.1 N CHLORIDE (test code = CL) 109.0 mmol/L 98-107 H CARBON DIOXIDE (test code = CO2) mmol/L 21-32 ANION GAP (test code = GAP) 10-20 GLUCOSE (test code = GLU) mg/dL 74-106 BLOOD UREA NITROGEN (test code = BUN) mg/dL 7-18 GLOMERULAR FILTRATION RATE (test code = GFR) mL/min >=60 CREATININE (test code = CREAT) mg/dL 0.55-1.02 BUN/CREATININE RATIO (test code = BUN/CREA) 10-20 CALCIUM (test code = CA) mg/dL 8.5-10.1 [id number] 01:09:00* Test Item Value Reference Range Interpretation Comments PHOSPHORUS (test code = PHOS) mg/dL 2.5-4.9 [id number] 01:09:00* Test Item Value Reference Range Interpretation Comments MAGNESIUM (test code = MAG) mg/dL 1.8-2.4 CBC W/AUTO [id number] 01:00:00* Test Item Value Reference Range Interpretation Comments WHITE BLOOD CELL (test code = WBC) 17.1 K/mm3 4.5-12.5 H RED BLOOD CELL (test code = RBC) 2.98 mill/mm3 3.7-5.2 L HEMOGLOBIN (test code = HGB) 8.3 gram/dL 11.5-15.5 L HEMATOCRIT (test code = HCT) 27.5 % 36.0-46.0 L MEAN CELL VOLUME (test code = MCV) 92.3 fL 80-98 N MEAN CELL HGB (test code = MCH) 27.9 picogram 27.0-33.0 N MEAN CELL HGB CONCETRATION (test code = MCHC) 30.2 gram/dL 33.0-36. 0 L RED CELL DISTRIBUTION WIDTH (test code = RDW) 21.7 % 11.6-16. 2 H RED CELL DISTRIBUTION WIDTH SD (test code = RDW-SD) 72.5 fL 37 .0-51.0 H PLATELET COUNT (test code = PLT) 218 K/mm3 150-450 N MEAN PLATELET VOLUME (test code = MPV) 13.5 fL 6.7-11.0 H NEUTROPHIL % (test code = NT%) 82.2 % 39.0-69.0 H IMMATURE GRANULOCYTE % (test code = IG%) 1.1 % 0.0-5.0 N LYMPHOCYTE % (test code = LY%) 8.5 % 25.0-55.0 L MONOCYTE % (test code = MO%) 7.9 % 0.0-10.0 N EOSINOPHIL % (test code = EO%) 0.2 % 0.0-5.0 N BASOPHIL % (test code = BA%) 0.1 % 0.0-1.0 N NUCLEATED RBC % (test code = NRBC%) 0.0 % 0-0 N NEUTROPHIL # (test code = NT#) 14.01 K/mm3 1.8-7.7 H IMMATURE GRANULOCYTE # (test code = IG#) 0.18 x10 3/uL 0-0.03 H LYMPHOCYTE # (test code = LY#) 1.45 K/mm3 1.0-5.0 N MONOCYTE # (test code = MO#) 1.35 K/mm3 0-0.8 H EOSINOPHIL # (test code = EO#) 0.04 K/mm3 0.0-0.5 N BASOPHIL # (test code = BA#) 0.02 K/mm3 0.0-0.2 N NUCLEATED RBC # (test code = NRBC#) 0.00 K/mm3 0.0-0.1 N MANUAL DIFF REQUIRED (test code = MDIFF) NO, ONLY SCAN NEEDED DIFFERENTIAL [id number] 01:00:00* Test Item Value Reference Range Interpretation Comments STAIN ACCEPTABILITY (test code = STN ACCEPTABLE) CABOT RINGS (test code = CAB) MORPHOLOGY COMMENT (test code = MOC) PLATELET ESTIMATE (test code = PLTEST) PLATELET MORPHOLOGY (test code = PLTMORPH) CBC W/AUTO [id number] 01:00:00* Test Item Value Reference Range Interpretation Comments WHITE BLOOD CELL (test code = WBC) 17.1 K/mm3 4.5-12.5 H RED BLOOD CELL (test code = RBC) 2.98 mill/mm3 3.7-5.2 L HEMOGLOBIN (test code = HGB) 8.3 gram/dL 11.5-15.5 L HEMATOCRIT (test code = HCT) 27.5 % 36.0-46.0 L MEAN CELL VOLUME (test code = MCV) 92.3 fL 80-98 N MEAN CELL HGB (test code = MCH) 27.9 picogram 27.0-33.0 N MEAN CELL HGB CONCETRATION (test code = MCHC) 30.2 gram/dL 33.0-36. 0 L RED CELL DISTRIBUTION WIDTH (test code = RDW) 21.7 % 11.6-16. 2 H RED CELL DISTRIBUTION WIDTH SD (test code = RDW-SD) 72.5 fL 37 .0-51.0 H PLATELET COUNT (test code = PLT) 218 K/mm3 150-450 N MEAN PLATELET VOLUME (test code = MPV) 13.5 fL 6.7-11.0 H NEUTROPHIL % (test code = NT%) 82.2 % 39.0-69.0 H IMMATURE GRANULOCYTE % (test code = IG%) 1.1 % 0.0-5.0 N LYMPHOCYTE % (test code = LY%) 8.5 % 25.0-55.0 L MONOCYTE % (test code = MO%) 7.9 % 0.0-10.0 N EOSINOPHIL % (test code = EO%) 0.2 % 0.0-5.0 N BASOPHIL % (test code = BA%) 0.1 % 0.0-1.0 N NUCLEATED RBC % (test code = NRBC%) 0.0 % 0-0 N NEUTROPHIL # (test code = NT#) 14.01 K/mm3 1.8-7.7 H IMMATURE GRANULOCYTE # (test code = IG#) 0.18 x10 3/uL 0-0.03 H LYMPHOCYTE # (test code = LY#) 1.45 K/mm3 1.0-5.0 N MONOCYTE # (test code = MO#) 1.35 K/mm3 0-0.8 H EOSINOPHIL # (test code = EO#) 0.04 K/mm3 0.0-0.5 N BASOPHIL # (test code = BA#) 0.02 K/mm3 0.0-0.2 N NUCLEATED RBC # (test code = NRBC#) 0.00 K/mm3 0.0-0.1 N MANUAL DIFF REQUIRED (test code = MDIFF) NO, ONLY SCAN NEEDED DIFFERENTIAL [id number] 01:00:00* Test Item Value Reference Range Interpretation Comments STAIN ACCEPTABILITY (test code = STN ACCEPTABLE) CABOT RINGS (test code = CAB) MORPHOLOGY COMMENT (test code = MOC) PLATELET ESTIMATE (test code = PLTEST) PLATELET MORPHOLOGY (test code = PLTMORPH) CBC W/AUTO [id number] 01:00:00* Test Item Value Reference Range Interpretation Comments WHITE BLOOD CELL (test code = WBC) 17.1 K/mm3 4.5-12.5 H RED BLOOD CELL (test code = RBC) 2.98 mill/mm3 3.7-5.2 L HEMOGLOBIN (test code = HGB) 8.3 gram/dL 11.5-15.5 L HEMATOCRIT (test code = HCT) 27.5 % 36.0-46.0 L MEAN CELL VOLUME (test code = MCV) 92.3 fL 80-98 N MEAN CELL HGB (test code = MCH) 27.9 picogram 27.0-33.0 N MEAN CELL HGB CONCETRATION (test code = MCHC) 30.2 gram/dL 33.0-36. 0 L RED CELL DISTRIBUTION WIDTH (test code = RDW) 21.7 % 11.6-16. 2 H RED CELL DISTRIBUTION WIDTH SD (test code = RDW-SD) 72.5 fL 37 .0-51.0 H PLATELET COUNT (test code = PLT) 218 K/mm3 150-450 N MEAN PLATELET VOLUME (test code = MPV) 13.5 fL 6.7-11.0 H NEUTROPHIL % (test code = NT%) 82.2 % 39.0-69.0 H IMMATURE GRANULOCYTE % (test code = IG%) 1.1 % 0.0-5.0 N LYMPHOCYTE % (test code = LY%) 8.5 % 25.0-55.0 L MONOCYTE % (test code = MO%) 7.9 % 0.0-10.0 N EOSINOPHIL % (test code = EO%) 0.2 % 0.0-5.0 N BASOPHIL % (test code = BA%) 0.1 % 0.0-1.0 N NUCLEATED RBC % (test code = NRBC%) 0.0 % 0-0 N NEUTROPHIL # (test code = NT#) 14.01 K/mm3 1.8-7.7 H IMMATURE GRANULOCYTE # (test code = IG#) 0.18 x10 3/uL 0-0.03 H LYMPHOCYTE # (test code = LY#) 1.45 K/mm3 1.0-5.0 N MONOCYTE # (test code = MO#) 1.35 K/mm3 0-0.8 H EOSINOPHIL # (test code = EO#) 0.04 K/mm3 0.0-0.5 N BASOPHIL # (test code = BA#) 0.02 K/mm3 0.0-0.2 N NUCLEATED RBC # (test code = NRBC#) 0.00 K/mm3 0.0-0.1 N MANUAL DIFF REQUIRED (test code = MDIFF) NO, ONLY SCAN NEEDED DIFFERENTIAL [id number] 01:00:00* Test Item Value Reference Range Interpretation Comments STAIN ACCEPTABILITY (test code = STN ACCEPTABLE) MORPHOLOGY COMMENT (test code = MOC) PLATELET ESTIMATE (test code = PLTEST) PLATELET MORPHOLOGY (test code = PLTMORPH) CBC W/AUTO [id number] 01:00:00* Test Item Value Reference Range Interpretation Comments WHITE BLOOD CELL (test code = WBC) 17.1 K/mm3 4.5-12.5 H RED BLOOD CELL (test code = RBC) 2.98 mill/mm3 3.7-5.2 L HEMOGLOBIN (test code = HGB) 8.3 gram/dL 11.5-15.5 L HEMATOCRIT (test code = HCT) 27.5 % 36.0-46.0 L MEAN CELL VOLUME (test code = MCV) 92.3 fL 80-98 N MEAN CELL HGB (test code = MCH) 27.9 picogram 27.0-33.0 N MEAN CELL HGB CONCETRATION (test code = MCHC) 30.2 gram/dL 33.0-36. 0 L RED CELL DISTRIBUTION WIDTH (test code = RDW) 21.7 % 11.6-16. 2 H RED CELL DISTRIBUTION WIDTH SD (test code = RDW-SD) 72.5 fL 37 .0-51.0 H PLATELET COUNT (test code = PLT) 218 K/mm3 150-450 N MEAN PLATELET VOLUME (test code = MPV) 13.5 fL 6.7-11.0 H NEUTROPHIL % (test code = NT%) 82.2 % 39.0-69.0 H IMMATURE GRANULOCYTE % (test code = IG%) 1.1 % 0.0-5.0 N LYMPHOCYTE % (test code = LY%) 8.5 % 25.0-55.0 L MONOCYTE % (test code = MO%) 7.9 % 0.0-10.0 N EOSINOPHIL % (test code = EO%) 0.2 % 0.0-5.0 N BASOPHIL % (test code = BA%) 0.1 % 0.0-1.0 N NUCLEATED RBC % (test code = NRBC%) 0.0 % 0-0 N NEUTROPHIL # (test code = NT#) 14.01 K/mm3 1.8-7.7 H IMMATURE GRANULOCYTE # (test code = IG#) 0.18 x10 3/uL 0-0.03 H LYMPHOCYTE # (test code = LY#) 1.45 K/mm3 1.0-5.0 N MONOCYTE # (test code = MO#) 1.35 K/mm3 0-0.8 H EOSINOPHIL # (test code = EO#) 0.04 K/mm3 0.0-0.5 N BASOPHIL # (test code = BA#) 0.02 K/mm3 0.0-0.2 N NUCLEATED RBC # (test code = NRBC#) 0.00 K/mm3 0.0-0.1 N MANUAL DIFF REQUIRED (test code = MDIFF) NO, ONLY SCAN NEEDED DIFFERENTIAL [id number] 01:00:00* Test Item Value Reference Range Interpretation Comments STAIN ACCEPTABILITY (test code = STN ACCEPTABLE) CABOT RINGS (test code = CAB) MORPHOLOGY COMMENT (test code = MOC) PLATELET ESTIMATE (test code = PLTEST) PLATELET MORPHOLOGY (test code = PLTMORPH) [id number] 21:36:00* Test Item Value Reference Range Interpretation Comments GLUBED (test code = GLUBED) 180 mg/dL 74-106 H Performed by certified carousel operator at [facility] [id number] 16:05:00* Test Item Value Reference Range Interpretation Comments GLUBED (test code = GLUBED) 183 mg/dL 74-106 H Performed by certified carousel operator at [facility] [id number] 10:27:00* Test Item Value Reference Range Interpretation Comments GLUBED (test code = GLUBED) 187 mg/dL 74-106 H Performed by certified carousel operator at [facility] - XR CHEST 1 [id number] 07:13:00 FAX: Justo Kaplan [place]: St: ADM FAX: Josh Roldan MD [phone] FAX: Kevin Bass MD [phone] Name: DAYANA RICHARDSON [facility] : 1960 Age/S: 59/F [address] [facility] Unit #: [id number] Loc: V.[address] [address] Phys: Justo Kaplan Acct: [id number] Dis Date: Status: ADM IN ONE #: [phone] Exam Date: 09/23/2019 0415 FAX #: [phone] Reason: VENT EXAMS: CPT CODE: [id number] XR CHEST 1 V [id number] REASON FOR EXAM: VENT EXAM ORDER DATE: 09/23/2019 12:00 AM O rdering: SOHAN Dunham Attending:Josh Roldan MD Location: PROCEDURE: - XR CHEST 1 V COMPARISON: 09/22/2019 FINDINGS: Portable AP frontal view of the chest obtained at 4:41 AM shows clear lungs without evidence of consolidation. The heart size is minimally enlarged. Stable appearance of the tracheostomy tube. Pulmona ry vasculatures are unremarkable. IMPRESSION: Hyperinflated karla gs with small left pleural effusion and atelectasis of the left base at 0713 Reported and signed by: Armando Vogt M.D. CC: Kenji Kaplan; Josh Roldan MD; Kevin Veronica MD Technologist: Robert Washington RT(R); SONJA STEPHEN RT(R) Trnscrd Date/Time/By: 09/23/2019 (07) : B y: [email or web address] Orig Print D/T: S: 09/23/2019 ([id number]) PAGE 1 Signed Report CBC W/AUTO [id number] 05:53:00* Test Item Value Reference Range Interpretation Comments WHITE BLOOD CELL (test code = WBC) 18.2 K/mm3 4.5-12.5 H RED BLOOD CELL (test code = RBC) 2.73 mill/mm3 3.7-5.2 L HEMOGLOBIN (test code = HGB) 7.5 gram/dL 11.5-15.5 L HEMATOCRIT (test code = HCT) 24.7 % 36.0-46.0 L MEAN CELL VOLUME (test code = MCV) 90.5 fL 80-98 N MEAN CELL HGB (test code = MCH) 27.5 picogram 27.0-33.0 N MEAN CELL HGB CONCETRATION (test code = MCHC) 30.4 gram/dL 33.0-36. 0 L RED CELL DISTRIBUTION WIDTH (test code = RDW) 21.4 % 11.6-16. 2 H RED CELL DISTRIBUTION WIDTH SD (test code = RDW-SD) 70.6 fL 37 .0-51.0 H PLATELET COUNT (test code = PLT) 220 K/mm3 150-450 N MEAN PLATELET VOLUME (test code = MPV) 14.2 fL 6.7-11.0 H NEUTROPHIL % (test code = NT%) 80.7 % 39.0-69.0 H IMMATURE GRANULOCYTE % (test code = IG%) 1.2 % 0.0-5.0 N LYMPHOCYTE % (test code = LY%) 7.2 % 25.0-55.0 L MONOCYTE % (test code = MO%) 10.7 % 0.0-10.0 H EOSINOPHIL % (test code = EO%) 0.1 % 0.0-5.0 N BASOPHIL % (test code = BA%) 0.1 % 0.0-1.0 N NUCLEATED RBC % (test code = NRBC%) 0.0 % 0-0 N NEUTROPHIL # (test code = NT#) 14.72 K/mm3 1.8-7.7 H IMMATURE GRANULOCYTE # (test code = IG#) 0.22 x10 3/uL 0-0.03 H LYMPHOCYTE # (test code = LY#) 1.31 K/mm3 1.0-5.0 N MONOCYTE # (test code = MO#) 1.96 K/mm3 0-0.8 H EOSINOPHIL # (test code = EO#) 0.02 K/mm3 0.0-0.5 N BASOPHIL # (test code = BA#) 0.01 K/mm3 0.0-0.2 N NUCLEATED RBC # (test code = NRBC#) 0.00 K/mm3 0.0-0.1 N MANUAL DIFF REQUIRED (test code = MDIFF) NO, ONLY SCAN NEEDED DIFFERENTIAL [id number] 05:53:00* Test Item Value Reference Range Interpretation Comments STAIN ACCEPTABILITY (test code = STN ACCEPTABLE) STAIN ACCEPTABLE ANISOCYTOSIS (test code = ANISO) 1+ MICROCYTOSIS (test code = MICR) 1+ PLATELET ESTIMATE (test code = PLTEST) ADEQUATE PLATELET MORPHOLOGY (test code = PLTMORPH) NORMAL CBC W/AUTO [id number] 05:23:00* Test Item Value Reference Range Interpretation Comments WHITE BLOOD CELL (test code = WBC) 18.2 K/mm3 4.5-12.5 H RED BLOOD CELL (test code = RBC) 2.73 mill/mm3 3.7-5.2 L HEMOGLOBIN (test code = HGB) 7.5 gram/dL 11.5-15.5 L HEMATOCRIT (test code = HCT) 24.7 % 36.0-46.0 L MEAN CELL VOLUME (test code = MCV) 90.5 fL 80-98 N MEAN CELL HGB (test code = MCH) 27.5 picogram 27.0-33.0 N MEAN CELL HGB CONCETRATION (test code = MCHC) 30.4 gram/dL 33.0-36. 0 L RED CELL DISTRIBUTION WIDTH (test code = RDW) 21.4 % 11.6-16. 2 H RED CELL DISTRIBUTION WIDTH SD (test code = RDW-SD) 70.6 fL 37 .0-51.0 H PLATELET COUNT (test code = PLT) 220 K/mm3 150-450 N MEAN PLATELET VOLUME (test code = MPV) 14.2 fL 6.7-11.0 H NEUTROPHIL % (test code = NT%) 80.7 % 39.0-69.0 H IMMATURE GRANULOCYTE % (test code = IG%) 1.2 % 0.0-5.0 N LYMPHOCYTE % (test code = LY%) 7.2 % 25.0-55.0 L MONOCYTE % (test code = MO%) 10.7 % 0.0-10.0 H EOSINOPHIL % (test code = EO%) 0.1 % 0.0-5.0 N BASOPHIL % (test code = BA%) 0.1 % 0.0-1.0 N NUCLEATED RBC % (test code = NRBC%) 0.0 % 0-0 N NEUTROPHIL # (test code = NT#) 14.72 K/mm3 1.8-7.7 H IMMATURE GRANULOCYTE # (test code = IG#) 0.22 x10 3/uL 0-0.03 H LYMPHOCYTE # (test code = LY#) 1.31 K/mm3 1.0-5.0 N MONOCYTE # (test code = MO#) 1.96 K/mm3 0-0.8 H EOSINOPHIL # (test code = EO#) 0.02 K/mm3 0.0-0.5 N BASOPHIL # (test code = BA#) 0.01 K/mm3 0.0-0.2 N NUCLEATED RBC # (test code = NRBC#) 0.00 K/mm3 0.0-0.1 N MANUAL DIFF REQUIRED (test code = MDIFF) NO, ONLY SCAN NEEDED DIFFERENTIAL [id number] 05:23:00* Test Item Value Reference Range Interpretation Comments STAIN ACCEPTABILITY (test code = STN ACCEPTABLE) CABOT RINGS (test code = CAB) MORPHOLOGY COMMENT (test code = MOC) PLATELET ESTIMATE (test code = PLTEST) PLATELET MORPHOLOGY (test code = PLTMORPH) CBC W/AUTO [id number] 05:23:00* Test Item Value Reference Range Interpretation Comments WHITE BLOOD CELL (test code = WBC) 18.2 K/mm3 4.5-12.5 H RED BLOOD CELL (test code = RBC) 2.73 mill/mm3 3.7-5.2 L HEMOGLOBIN (test code = HGB) 7.5 gram/dL 11.5-15.5 L HEMATOCRIT (test code = HCT) 24.7 % 36.0-46.0 L MEAN CELL VOLUME (test code = MCV) 90.5 fL 80-98 N MEAN CELL HGB (test code = MCH) 27.5 picogram 27.0-33.0 N MEAN CELL HGB CONCETRATION (test code = MCHC) 30.4 gram/dL 33.0-36. 0 L RED CELL DISTRIBUTION WIDTH (test code = RDW) 21.4 % 11.6-16. 2 H RED CELL DISTRIBUTION WIDTH SD (test code = RDW-SD) 70.6 fL 37 .0-51.0 H PLATELET COUNT (test code = PLT) 220 K/mm3 150-450 N MEAN PLATELET VOLUME (test code = MPV) 14.2 fL 6.7-11.0 H NEUTROPHIL % (test code = NT%) 80.7 % 39.0-69.0 H IMMATURE GRANULOCYTE % (test code = IG%) 1.2 % 0.0-5.0 N LYMPHOCYTE % (test code = LY%) 7.2 % 25.0-55.0 L MONOCYTE % (test code = MO%) 10.7 % 0.0-10.0 H EOSINOPHIL % (test code = EO%) 0.1 % 0.0-5.0 N BASOPHIL % (test code = BA%) 0.1 % 0.0-1.0 N NUCLEATED RBC % (test code = NRBC%) 0.0 % 0-0 N NEUTROPHIL # (test code = NT#) 14.72 K/mm3 1.8-7.7 H IMMATURE GRANULOCYTE # (test code = IG#) 0.22 x10 3/uL 0-0.03 H LYMPHOCYTE # (test code = LY#) 1.31 K/mm3 1.0-5.0 N MONOCYTE # (test code = MO#) 1.96 K/mm3 0-0.8 H EOSINOPHIL # (test code = EO#) 0.02 K/mm3 0.0-0.5 N BASOPHIL # (test code = BA#) 0.01 K/mm3 0.0-0.2 N NUCLEATED RBC # (test code = NRBC#) 0.00 K/mm3 0.0-0.1 N MANUAL DIFF REQUIRED (test code = MDIFF) NO, ONLY SCAN NEEDED DIFFERENTIAL [id number] 05:23:00* Test Item Value Reference Range Interpretation Comments STAIN ACCEPTABILITY (test code = STN ACCEPTABLE) CABOT RINGS (test code = CAB) MORPHOLOGY COMMENT (test code = MOC) PLATELET ESTIMATE (test code = PLTEST) PLATELET MORPHOLOGY (test code = PLTMORPH) CBC W/AUTO [id number] 05:23:00* Test Item Value Reference Range Interpretation Comments WHITE BLOOD CELL (test code = WBC) 18.2 K/mm3 4.5-12.5 H RED BLOOD CELL (test code = RBC) 2.73 mill/mm3 3.7-5.2 L HEMOGLOBIN (test code = HGB) 7.5 gram/dL 11.5-15.5 L HEMATOCRIT (test code = HCT) 24.7 % 36.0-46.0 L MEAN CELL VOLUME (test code = MCV) 90.5 fL 80-98 N MEAN CELL HGB (test code = MCH) 27.5 picogram 27.0-33.0 N MEAN CELL HGB CONCETRATION (test code = MCHC) 30.4 gram/dL 33.0-36. 0 L RED CELL DISTRIBUTION WIDTH (test code = RDW) 21.4 % 11.6-16. 2 H RED CELL DISTRIBUTION WIDTH SD (test code = RDW-SD) 70.6 fL 37 .0-51.0 H PLATELET COUNT (test code = PLT) 220 K/mm3 150-450 N MEAN PLATELET VOLUME (test code = MPV) 14.2 fL 6.7-11.0 H NEUTROPHIL % (test code = NT%) 80.7 % 39.0-69.0 H IMMATURE GRANULOCYTE % (test code = IG%) 1.2 % 0.0-5.0 N LYMPHOCYTE % (test code = LY%) 7.2 % 25.0-55.0 L MONOCYTE % (test code = MO%) 10.7 % 0.0-10.0 H EOSINOPHIL % (test code = EO%) 0.1 % 0.0-5.0 N BASOPHIL % (test code = BA%) 0.1 % 0.0-1.0 N NUCLEATED RBC % (test code = NRBC%) 0.0 % 0-0 N NEUTROPHIL # (test code = NT#) 14.72 K/mm3 1.8-7.7 H IMMATURE GRANULOCYTE # (test code = IG#) 0.22 x10 3/uL 0-0.03 H LYMPHOCYTE # (test code = LY#) 1.31 K/mm3 1.0-5.0 N MONOCYTE # (test code = MO#) 1.96 K/mm3 0-0.8 H EOSINOPHIL # (test code = EO#) 0.02 K/mm3 0.0-0.5 N BASOPHIL # (test code = BA#) 0.01 K/mm3 0.0-0.2 N NUCLEATED RBC # (test code = NRBC#) 0.00 K/mm3 0.0-0.1 N MANUAL DIFF REQUIRED (test code = MDIFF) NO, ONLY SCAN NEEDED DIFFERENTIAL [id number] 05:23:00* Test Item Value Reference Range Interpretation Comments STAIN ACCEPTABILITY (test code = STN ACCEPTABLE) MORPHOLOGY COMMENT (test code = MOC) PLATELET ESTIMATE (test code = PLTEST) PLATELET MORPHOLOGY (test code = PLTMORPH) CBC W/AUTO [id number] 05:23:00* Test Item Value Reference Range Interpretation Comments WHITE BLOOD CELL (test code = WBC) 18.2 K/mm3 4.5-12.5 H RED BLOOD CELL (test code = RBC) 2.73 mill/mm3 3.7-5.2 L HEMOGLOBIN (test code = HGB) 7.5 gram/dL 11.5-15.5 L HEMATOCRIT (test code = HCT) 24.7 % 36.0-46.0 L MEAN CELL VOLUME (test code = MCV) 90.5 fL 80-98 N MEAN CELL HGB (test code = MCH) 27.5 picogram 27.0-33.0 N MEAN CELL HGB CONCETRATION (test code = MCHC) 30.4 gram/dL 33.0-36. 0 L RED CELL DISTRIBUTION WIDTH (test code = RDW) 21.4 % 11.6-16. 2 H RED CELL DISTRIBUTION WIDTH SD (test code = RDW-SD) 70.6 fL 37 .0-51.0 H PLATELET COUNT (test code = PLT) 220 K/mm3 150-450 N MEAN PLATELET VOLUME (test code = MPV) 14.2 fL 6.7-11.0 H NEUTROPHIL % (test code = NT%) 80.7 % 39.0-69.0 H IMMATURE GRANULOCYTE % (test code = IG%) 1.2 % 0.0-5.0 N LYMPHOCYTE % (test code = LY%) 7.2 % 25.0-55.0 L MONOCYTE % (test code = MO%) 10.7 % 0.0-10.0 H EOSINOPHIL % (test code = EO%) 0.1 % 0.0-5.0 N BASOPHIL % (test code = BA%) 0.1 % 0.0-1.0 N NUCLEATED RBC % (test code = NRBC%) 0.0 % 0-0 N NEUTROPHIL # (test code = NT#) 14.72 K/mm3 1.8-7.7 H IMMATURE GRANULOCYTE # (test code = IG#) 0.22 x10 3/uL 0-0.03 H LYMPHOCYTE # (test code = LY#) 1.31 K/mm3 1.0-5.0 N MONOCYTE # (test code = MO#) 1.96 K/mm3 0-0.8 H EOSINOPHIL # (test code = EO#) 0.02 K/mm3 0.0-0.5 N BASOPHIL # (test code = BA#) 0.01 K/mm3 0.0-0.2 N NUCLEATED RBC # (test code = NRBC#) 0.00 K/mm3 0.0-0.1 N MANUAL DIFF REQUIRED (test code = MDIFF) NO, ONLY SCAN NEEDED DIFFERENTIAL [id number] 05:23:00* Test Item Value Reference Range Interpretation Comments STAIN ACCEPTABILITY (test code = STN ACCEPTABLE) CABOT RINGS (test code = CAB) MORPHOLOGY COMMENT (test code = MOC) PLATELET ESTIMATE (test code = PLTEST) PLATELET MORPHOLOGY (test code = PLTMORPH) BASIC METABOLIC [id number] 05:05:00* Test Item Value Reference Range Interpretation Comments SODIUM (test code = NA) 146 mmol/L 136-145 H POTASSIUM (test code = K) 4.2 mmol/L 3.5-5.1 N CHLORIDE (test code = CL) 110.0 mmol/L 98-107 H CARBON DIOXIDE (test code = CO2) 32.0 mmol/L 21-32 N ANION GAP (test code = GAP) 8.2 10-20 L GLUCOSE (test code = GLU) 205 mg/dL 74-106 H BLOOD UREA NITROGEN (test code = BUN) 38 mg/dL 7-18 H GLOMERULAR FILTRATION RATE (test code = GFR) > 60 mL/min >=60 Estimated GFR by using Modified MDRD formula.Chronic kidney disease is defined as either kidney damageor GFR <60 mL/min/1.73 m2 for >3 months. CREATININE (test code = CREAT) 0.70 mg/dL 0.55-1.02 N Note change in reference range due to change in reagent. BUN/CREATININE RATIO (test code = BUN/CREA) 54.3 10-20 H CALCIUM (test code = CA) 8.8 mg/dL 8.5-10.1 N [id number] 05:05:00* Test Item Value Reference Range Interpretation Comments PHOSPHORUS (test code = PHOS) 1.6 mg/dL 2.5-4.9 L [id number] 05:05:00* Test Item Value Reference Range Interpretation Comments MAGNESIUM (test code = MAG) 1.8 mg/dL 1.8-2.4 N [id number] 22:42:00* Test Item Value Reference Range Interpretation Comments GLUBED (test code = GLUBED) 252 mg/dL 74-106 H Performed by certified carousel operator at [facility] [id number] 17:26:00* Test Item Value Reference Range Interpretation Comments GLUBED (test code = GLUBED) 318 mg/dL 74-106 H Performed by certified carousel operator at [facility] [id number] 10:48:00* Test Item Value Reference Range Interpretation Comments GLUBED (test code = GLUBED) 397 mg/dL 74-106 H Performed by certified carousel operator at [facility] - XR CHEST 1 [id number] 06:25:00 FAX: Justo Kaplan [place]: B St: ADM FAX: Josh Roldan MD [phone] FAX: Kevin Bass MD [phone] Name: DAYANA RICHARDSON [facility] : 1960 Age/S: 59/F [address] Unit #: [id number] Loc: [address] [place] [address] Phys: Justo Kaplan Acct: [id number] Dis Date: Status: ADM IN PH ONE #: [phone] Exam Date: 09/22/2019519 FAX #: [phone] Reason: INUBATED ON VENT EXAMS: CPT CODE: [id number] XR CHEST 1 V [id number] CLINICAL HISTO RY: Respiratory failure. TECHNIQUE: AP chest x-ray C OMPARISON: Previous day. IMPRESSION: Improved patchy bilateral airspace opacification. Pulmonary hyperinflation, sugge sting COPD. No pleural effusion. Normal heart size. Placement of tracheo stomy tube 6 cm above the [place]. LOCATION : LP at 0625 Reported and signed by: Kadi HicksOAnn CC: Justo Kaplan; Josh Roldan MD; Kevin Santana MD Technologist: CAMERON BOONE JR Trnscrd Date/Time/By: 09/22/2019 (0625) : By: [email or web address] Orig Print D/ T: S: 09/22/2019 (0671) PAGE 1 Si gned Report CBC W/MANUAL [id number] 04:44:00* Test Item Value Reference Range Interpretation Comments WHITE BLOOD CELL (test code = WBC) 15.7 K/mm3 4.5-12.5 H RED BLOOD CELL (test code = RBC) 2.69 mill/mm3 3.7-5.2 L HEMOGLOBIN (test code = HGB) 7.4 gram/dL 11.5-15.5 L HEMATOCRIT (test code = HCT) 24.4 % 36.0-46.0 L MEAN CELL VOLUME (test code = MCV) 90.7 fL 80-98 N MEAN CELL HGB (test code = MCH) 27.5 picogram 27.0-33.0 N MEAN CELL HGB CONCETRATION (test code = MCHC) 30.3 gram/dL 33.0-36. 0 L RED CELL DISTRIBUTION WIDTH (test code = RDW) 21.2 % 11.6-16. 2 H RED CELL DISTRIBUTION WIDTH SD (test code = RDW-SD) 70.0 fL 37 .0-51.0 H PLATELET COUNT (test code = PLT) 192 K/mm3 150-450 N MEAN PLATELET VOLUME (test code = MPV) 14.0 fL 6.7-11.0 H IMMATURE GRANULOCYTE % (test code = IG%) 1.1 % 0.0-5.0 N NUCLEATED RBC % (test code = NRBC%) 0.1 % 0-0 H NEUTROPHIL # (test code = NT#) 12.75 K/mm3 1.8-7.7 H IMMATURE GRANULOCYTE # (test code = IG#) 0.17 x10 3/uL 0-0.03 H LYMPHOCYTE # (test code = LY#) 1.10 K/mm3 1.0-5.0 N MONOCYTE # (test code = MO#) 1.67 K/mm3 0-0.8 H EOSINOPHIL # (test code = EO#) 0.00 K/mm3 0.0-0.5 N BASOPHIL # (test code = BA#) 0.02 K/mm3 0.0-0.2 N NUCLEATED RBC # (test code = NRBC#) 0.02 K/mm3 0.0-0.1 N MANUAL DIFF REQUIRED (test code = MDIFF) YES STAIN ACCEPTABILITY (test code = STN ACCEPTABLE) STAIN ACCEPTABLE TOTAL CELLS COUNTED (test code = TCC) 115 #CELLS SEGMENTED NEUTROPHILS (test code = SEG) 89.5 % 39-69 H BAND NEUTROPHIL (test code = BAND) 0 % 0-10 N LYMPHOCYTE (test code = LYMPH) 3.5 % 25-55 L REACTIVE LYMPH (test code = RELYMPH) 0 % MONOCYTE (test code = MON) 5.2 % 0-10 N EOSINOPHIL (test code = EOS) 0 % 0.0-5.0 N BASOPHIL (test code = BASO) 0 % 0-1.0 N METAMYELOCYTE (test code = META) 0.9 % 0-0 H MYELOCYTE (test code = MYELO) 0.9 % 0.0-0.0 H PROMYELOCYTE (test code = PROM) 0 % 0-0 N POLYCHROMASIA (test code = POLC) 1+ HYPOCHROMIA (test code = HYPO) 2+ ANISOCYTOSIS (test code = ANISO) 1+ PLATELET ESTIMATE (test code = PLTEST) ADEQUATE PLATELET MORPHOLOGY (test code = PLTMORPH) NORMAL IMMATURE FORMS (test code = IMMAT) 0 % 0-0 N BASIC METABOLIC [id number] 03:16:00* Test Item Value Reference Range Interpretation Comments SODIUM (test code = NA) 145 mmol/L 136-145 N POTASSIUM (test code = K) 4.4 mmol/L 3.5-5.1 N CHLORIDE (test code = CL) 109.0 mmol/L 98-107 H CARBON DIOXIDE (test code = CO2) 31.0 mmol/L 21-32 N ANION GAP (test code = GAP) 9.4 10-20 L GLUCOSE (test code = GLU) 285 mg/dL 74-106 H BLOOD UREA NITROGEN (test code = BUN) 44 mg/dL 7-18 H GLOMERULAR FILTRATION RATE (test code = GFR) > 60 mL/min >=60 Estimated GFR by using Modified MDRD formula.Chronic kidney disease is defined as either kidney damageor GFR <60 mL/min/1.73 m2 for >3 months. CREATININE (test code = CREAT) 0.80 mg/dL 0.55-1.02 N Note change in reference range due to change in reagent. BUN/CREATININE RATIO (test code = BUN/CREA) 55.0 10-20 H CALCIUM (test code = CA) 9.1 mg/dL 8.5-10.1 N [id number] 03:16:00* Test Item Value Reference Range Interpretation Comments PHOSPHORUS (test code = PHOS) 2.7 mg/dL 2.5-4.9 N [id number] 03:16:00* Test Item Value Reference Range Interpretation Comments MAGNESIUM (test code = MAG) 2.0 mg/dL 1.8-2.4 N CBC W/MANUAL [id number] 03:06:00* Test Item Value Reference Range Interpretation Comments WHITE BLOOD CELL (test code = WBC) 15.7 K/mm3 4.5-12.5 H RED BLOOD CELL (test code = RBC) 2.69 mill/mm3 3.7-5.2 L HEMOGLOBIN (test code = HGB) 7.4 gram/dL 11.5-15.5 L HEMATOCRIT (test code = HCT) 24.4 % 36.0-46.0 L MEAN CELL VOLUME (test code = MCV) 90.7 fL 80-98 N MEAN CELL HGB (test code = MCH) 27.5 picogram 27.0-33.0 N MEAN CELL HGB CONCETRATION (test code = MCHC) 30.3 gram/dL 33.0-36. 0 L RED CELL DISTRIBUTION WIDTH (test code = RDW) 21.2 % 11.6-16. 2 H RED CELL DISTRIBUTION WIDTH SD (test code = RDW-SD) 70.0 fL 37 .0-51.0 H PLATELET COUNT (test code = PLT) 192 K/mm3 150-450 N MEAN PLATELET VOLUME (test code = MPV) 14.0 fL 6.7-11.0 H IMMATURE GRANULOCYTE % (test code = IG%) 1.1 % 0.0-5.0 N NUCLEATED RBC % (test code = NRBC%) 0.1 % 0-0 H NEUTROPHIL # (test code = NT#) 12.75 K/mm3 1.8-7.7 H IMMATURE GRANULOCYTE # (test code = IG#) 0.17 x10 3/uL 0-0.03 H LYMPHOCYTE # (test code = LY#) 1.10 K/mm3 1.0-5.0 N MONOCYTE # (test code = MO#) 1.67 K/mm3 0-0.8 H EOSINOPHIL # (test code = EO#) 0.00 K/mm3 0.0-0.5 N BASOPHIL # (test code = BA#) 0.02 K/mm3 0.0-0.2 N NUCLEATED RBC # (test code = NRBC#) 0.02 K/mm3 0.0-0.1 N MANUAL DIFF REQUIRED (test code = MDIFF) YES STAIN ACCEPTABILITY (test code = STN ACCEPTABLE) TOTAL CELLS COUNTED (test code = TCC) #CELLS SEGMENTED NEUTROPHILS (test code = SEG) % 39-69 LYMPHOCYTE (test code = LYMPH) % 25-55 MONOCYTE (test code = MON) % 0-10 EOSINOPHIL (test code = EOS) % 0.0-5.0 CABOT RINGS (test code = CAB) MORPHOLOGY COMMENT (test code = MOC) PLATELET ESTIMATE (test code = PLTEST) PLATELET MORPHOLOGY (test code = PLTMORPH) CBC W/MANUAL [id number] 03:06:00* Test Item Value Reference Range Interpretation Comments WHITE BLOOD CELL (test code = WBC) 15.7 K/mm3 4.5-12.5 H RED BLOOD CELL (test code = RBC) 2.69 mill/mm3 3.7-5.2 L HEMOGLOBIN (test code = HGB) 7.4 gram/dL 11.5-15.5 L HEMATOCRIT (test code = HCT) 24.4 % 36.0-46.0 L MEAN CELL VOLUME (test code = MCV) 90.7 fL 80-98 N MEAN CELL HGB (test code = MCH) 27.5 picogram 27.0-33.0 N MEAN CELL HGB CONCETRATION (test code = MCHC) 30.3 gram/dL 33.0-36. 0 L RED CELL DISTRIBUTION WIDTH (test code = RDW) 21.2 % 11.6-16. 2 H RED CELL DISTRIBUTION WIDTH SD (test code = RDW-SD) 70.0 fL 37 .0-51.0 H PLATELET COUNT (test code = PLT) 192 K/mm3 150-450 N MEAN PLATELET VOLUME (test code = MPV) 14.0 fL 6.7-11.0 H IMMATURE GRANULOCYTE % (test code = IG%) 1.1 % 0.0-5.0 N NUCLEATED RBC % (test code = NRBC%) 0.1 % 0-0 H NEUTROPHIL # (test code = NT#) 12.75 K/mm3 1.8-7.7 H IMMATURE GRANULOCYTE # (test code = IG#) 0.17 x10 3/uL 0-0.03 H LYMPHOCYTE # (test code = LY#) 1.10 K/mm3 1.0-5.0 N MONOCYTE # (test code = MO#) 1.67 K/mm3 0-0.8 H EOSINOPHIL # (test code = EO#) 0.00 K/mm3 0.0-0.5 N BASOPHIL # (test code = BA#) 0.02 K/mm3 0.0-0.2 N NUCLEATED RBC # (test code = NRBC#) 0.02 K/mm3 0.0-0.1 N MANUAL DIFF REQUIRED (test code = MDIFF) YES STAIN ACCEPTABILITY (test code = STN ACCEPTABLE) TOTAL CELLS COUNTED (test code = TCC) #CELLS SEGMENTED NEUTROPHILS (test code = SEG) % 39-69 LYMPHOCYTE (test code = LYMPH) % 25-55 MONOCYTE (test code = MON) % 0-10 EOSINOPHIL (test code = EOS) % 0.0-5.0 MORPHOLOGY COMMENT (test code = MOC) PLATELET ESTIMATE (test code = PLTEST) PLATELET MORPHOLOGY (test code = PLTMORPH) CBC W/MANUAL [id number] 03:06:00* Test Item Value Reference Range Interpretation Comments WHITE BLOOD CELL (test code = WBC) 15.7 K/mm3 4.5-12.5 H RED BLOOD CELL (test code = RBC) 2.69 mill/mm3 3.7-5.2 L HEMOGLOBIN (test code = HGB) 7.4 gram/dL 11.5-15.5 L HEMATOCRIT (test code = HCT) 24.4 % 36.0-46.0 L MEAN CELL VOLUME (test code = MCV) 90.7 fL 80-98 N MEAN CELL HGB (test code = MCH) 27.5 picogram 27.0-33.0 N MEAN CELL HGB CONCETRATION (test code = MCHC) 30.3 gram/dL 33.0-36. 0 L RED CELL DISTRIBUTION WIDTH (test code = RDW) 21.2 % 11.6-16. 2 H RED CELL DISTRIBUTION WIDTH SD (test code = RDW-SD) 70.0 fL 37 .0-51.0 H PLATELET COUNT (test code = PLT) 192 K/mm3 150-450 N MEAN PLATELET VOLUME (test code = MPV) 14.0 fL 6.7-11.0 H IMMATURE GRANULOCYTE % (test code = IG%) 1.1 % 0.0-5.0 N NUCLEATED RBC % (test code = NRBC%) 0.1 % 0-0 H NEUTROPHIL # (test code = NT#) 12.75 K/mm3 1.8-7.7 H IMMATURE GRANULOCYTE # (test code = IG#) 0.17 x10 3/uL 0-0.03 H LYMPHOCYTE # (test code = LY#) 1.10 K/mm3 1.0-5.0 N MONOCYTE # (test code = MO#) 1.67 K/mm3 0-0.8 H EOSINOPHIL # (test code = EO#) 0.00 K/mm3 0.0-0.5 N BASOPHIL # (test code = BA#) 0.02 K/mm3 0.0-0.2 N NUCLEATED RBC # (test code = NRBC#) 0.02 K/mm3 0.0-0.1 N MANUAL DIFF REQUIRED (test code = MDIFF) YES STAIN ACCEPTABILITY (test code = STN ACCEPTABLE) TOTAL CELLS COUNTED (test code = TCC) #CELLS SEGMENTED NEUTROPHILS (test code = SEG) % 39-69 LYMPHOCYTE (test code = LYMPH) % 25-55 MONOCYTE (test code = MON) % 0-10 MORPHOLOGY COMMENT (test code = MOC) PLATELET ESTIMATE (test code = PLTEST) PLATELET MORPHOLOGY (test code = PLTMORPH) CBC W/MANUAL [id number] 03:05:00* Test Item Value Reference Range Interpretation Comments WHITE BLOOD CELL (test code = WBC) 15.7 K/mm3 4.5-12.5 H RED BLOOD CELL (test code = RBC) 2.69 mill/mm3 3.7-5.2 L HEMOGLOBIN (test code = HGB) 7.4 gram/dL 11.5-15.5 L HEMATOCRIT (test code = HCT) 24.4 % 36.0-46.0 L MEAN CELL VOLUME (test code = MCV) 90.7 fL 80-98 N MEAN CELL HGB (test code = MCH) 27.5 picogram 27.0-33.0 N MEAN CELL HGB CONCETRATION (test code = MCHC) 30.3 gram/dL 33.0-36. 0 L RED CELL DISTRIBUTION WIDTH (test code = RDW) 21.2 % 11.6-16. 2 H RED CELL DISTRIBUTION WIDTH SD (test code = RDW-SD) 70.0 fL 37 .0-51.0 H PLATELET COUNT (test code = PLT) 192 K/mm3 150-450 N MEAN PLATELET VOLUME (test code = MPV) 14.0 fL 6.7-11.0 H IMMATURE GRANULOCYTE % (test code = IG%) 1.1 % 0.0-5.0 N NUCLEATED RBC % (test code = NRBC%) 0.1 % 0-0 H NEUTROPHIL # (test code = NT#) 12.75 K/mm3 1.8-7.7 H IMMATURE GRANULOCYTE # (test code = IG#) 0.17 x10 3/uL 0-0.03 H LYMPHOCYTE # (test code = LY#) 1.10 K/mm3 1.0-5.0 N MONOCYTE # (test code = MO#) 1.67 K/mm3 0-0.8 H EOSINOPHIL # (test code = EO#) 0.00 K/mm3 0.0-0.5 N BASOPHIL # (test code = BA#) 0.02 K/mm3 0.0-0.2 N NUCLEATED RBC # (test code = NRBC#) 0.02 K/mm3 0.0-0.1 N MANUAL DIFF REQUIRED (test code = MDIFF) YES STAIN ACCEPTABILITY (test code = STN ACCEPTABLE) TOTAL CELLS COUNTED (test code = TCC) #CELLS SEGMENTED NEUTROPHILS (test code = SEG) % 39-69 LYMPHOCYTE (test code = LYMPH) % 25-55 MONOCYTE (test code = MON) % 0-10 EOSINOPHIL (test code = EOS) % 0.0-5.0 CABOT RINGS (test code = CAB) MORPHOLOGY COMMENT (test code = MOC) PLATELET ESTIMATE (test code = PLTEST) PLATELET MORPHOLOGY (test code = PLTMORPH) CBC W/MANUAL [id number] 03:05:00* Test Item Value Reference Range Interpretation Comments WHITE BLOOD CELL (test code = WBC) 15.7 K/mm3 4.5-12.5 H RED BLOOD CELL (test code = RBC) 2.69 mill/mm3 3.7-5.2 L HEMOGLOBIN (test code = HGB) 7.4 gram/dL 11.5-15.5 L HEMATOCRIT (test code = HCT) 24.4 % 36.0-46.0 L MEAN CELL VOLUME (test code = MCV) 90.7 fL 80-98 N MEAN CELL HGB (test code = MCH) 27.5 picogram 27.0-33.0 N MEAN CELL HGB CONCETRATION (test code = MCHC) 30.3 gram/dL 33.0-36. 0 L RED CELL DISTRIBUTION WIDTH (test code = RDW) 21.2 % 11.6-16. 2 H RED CELL DISTRIBUTION WIDTH SD (test code = RDW-SD) 70.0 fL 37 .0-51.0 H PLATELET COUNT (test code = PLT) 192 K/mm3 150-450 N MEAN PLATELET VOLUME (test code = MPV) 14.0 fL 6.7-11.0 H IMMATURE GRANULOCYTE % (test code = IG%) 1.1 % 0.0-5.0 N NUCLEATED RBC % (test code = NRBC%) 0.1 % 0-0 H NEUTROPHIL # (test code = NT#) 12.75 K/mm3 1.8-7.7 H IMMATURE GRANULOCYTE # (test code = IG#) 0.17 x10 3/uL 0-0.03 H LYMPHOCYTE # (test code = LY#) 1.10 K/mm3 1.0-5.0 N MONOCYTE # (test code = MO#) 1.67 K/mm3 0-0.8 H EOSINOPHIL # (test code = EO#) 0.00 K/mm3 0.0-0.5 N BASOPHIL # (test code = BA#) 0.02 K/mm3 0.0-0.2 N NUCLEATED RBC # (test code = NRBC#) 0.02 K/mm3 0.0-0.1 N MANUAL DIFF REQUIRED (test code = MDIFF) YES STAIN ACCEPTABILITY (test code = STN ACCEPTABLE) TOTAL CELLS COUNTED (test code = TCC) #CELLS SEGMENTED NEUTROPHILS (test code = SEG) % 39-69 LYMPHOCYTE (test code = LYMPH) % 25-55 MONOCYTE (test code = MON) % 0-10 EOSINOPHIL (test code = EOS) % 0.0-5.0 CABOT RINGS (test code = CAB) MORPHOLOGY COMMENT (test code = MOC) PLATELET ESTIMATE (test code = PLTEST) PLATELET MORPHOLOGY (test code = PLTMORPH) [id number] 21:36:00* Test Item Value Reference Range Interpretation Comments GLUBED (test code = GLUBED) 274 mg/dL 74-106 H Performed by certified carousel operator at [facility] [id number] 17:31:00* Test Item Value Reference Range Interpretation Comments GLUBED (test code = GLUBED) 249 mg/dL 74-106 H Performed by certified carousel operator at [facility] [id number] 11:25:00* Test Item Value Reference Range Interpretation Comments GLUBED (test code = GLUBED) 202 mg/dL 74-106 H Performed by certified carousel operator at [facility] [id number] 05:32:00* Test Item Value Reference Range Interpretation Comments GLUBED (test code = GLUBED) 271 mg/dL 74-106 H Performed by certified carousel operator at [facility] CBC W/MANUAL [id number] 03:15:00* Test Item Value Reference Range Interpretation Comments WHITE BLOOD CELL (test code = WBC) 20.7 K/mm3 4.5-12.5 H RED BLOOD CELL (test code = RBC) 2.72 mill/mm3 3.7-5.2 L HEMOGLOBIN (test code = HGB) 7.6 gram/dL 11.5-15.5 L HEMATOCRIT (test code = HCT) 24.8 % 36.0-46.0 L MEAN CELL VOLUME (test code = MCV) 91.2 fL 80-98 N MEAN CELL HGB (test code = MCH) 27.9 picogram 27.0-33.0 N MEAN CELL HGB CONCETRATION (test code = MCHC) 30.6 gram/dL 33.0-36. 0 L RED CELL DISTRIBUTION WIDTH (test code = RDW) 21.5 % 11.6-16. 2 H RED CELL DISTRIBUTION WIDTH SD (test code = RDW-SD) 71.5 fL 37 .0-51.0 H PLATELET COUNT (test code = PLT) 190 K/mm3 150-450 N MEAN PLATELET VOLUME (test code = MPV) 14.2 fL 6.7-11.0 H IMMATURE GRANULOCYTE % (test code = IG%) 0.9 % 0.0-5.0 N NUCLEATED RBC % (test code = NRBC%) 0.0 % 0-0 N NEUTROPHIL # (test code = NT#) 18.47 K/mm3 1.8-7.7 H IMMATURE GRANULOCYTE # (test code = IG#) 0.18 x10 3/uL 0-0.03 H LYMPHOCYTE # (test code = LY#) 0.76 K/mm3 1.0-5.0 L MONOCYTE # (test code = MO#) 1.26 K/mm3 0-0.8 H EOSINOPHIL # (test code = EO#) 0.00 K/mm3 0.0-0.5 N BASOPHIL # (test code = BA#) 0.04 K/mm3 0.0-0.2 N NUCLEATED RBC # (test code = NRBC#) 0.00 K/mm3 0.0-0.1 N MANUAL DIFF REQUIRED (test code = MDIFF) YES STAIN ACCEPTABILITY (test code = STN ACCEPTABLE) STAIN ACCEPTABLE TOTAL CELLS COUNTED (test code = TCC) 114 #CELLS SEGMENTED NEUTROPHILS (test code = SEG) 93.9 % 39-69 H BAND NEUTROPHIL (test code = BAND) 0 % 0-10 N LYMPHOCYTE (test code = LYMPH) 2.6 % 25-55 L REACTIVE LYMPH (test code = RELYMPH) 0 % MONOCYTE (test code = MON) 3.5 % 0-10 N EOSINOPHIL (test code = EOS) 0 % 0.0-5.0 N BASOPHIL (test code = BASO) 0 % 0-1.0 N METAMYELOCYTE (test code = META) 0 % 0-0 N MYELOCYTE (test code = MYELO) 0 % 0.0-0.0 N PROMYELOCYTE (test code = PROM) 0 % 0-0 N HYPOCHROMIA (test code = HYPO) 1+ POIKILOCYTOSIS (test code = POIK) 1+ ANISOCYTOSIS (test code = ANISO) 1+ MICROCYTOSIS (test code = MICR) 1+ PLATELET ESTIMATE (test code = PLTEST) ADEQUATE PLATELET MORPHOLOGY (test code = PLTMORPH) NORMAL IMMATURE FORMS (test code = IMMAT) 0 % 0-0 N COMPREHENSIVE METABOLIC [id number] 02:58:00* Test Item Value Reference Range Interpretation Comments SODIUM (test code = NA) 144 mmol/L 136-145 N POTASSIUM (test code = K) 4.7 mmol/L 3.5-5.1 N CHLORIDE (test code = CL) 107.0 mmol/L 98-107 N CARBON DIOXIDE (test code = CO2) 30.0 mmol/L 21-32 N ANION GAP (test code = GAP) 11.7 10-20 N GLUCOSE (test code = GLU) 270 mg/dL 74-106 H BLOOD UREA NITROGEN (test code = BUN) 57 mg/dL 7-18 H GLOMERULAR FILTRATION RATE (test code = GFR) > 60 mL/min >=60 Estimated GFR by using Modified MDRD formula.Chronic kidney disease is defined as either kidney damageor GFR <60 mL/min/1.73 m2 for >3 months. CREATININE (test code = CREAT) 0.90 mg/dL 0.55-1.02 N Note change in reference range due to change in reagent. BUN/CREATININE RATIO (test code = BUN/CREA) 63.3 10-20 H TOTAL PROTEIN (test code = PROT) 6.4 gram/dL 6.4-8.2 N ALBUMIN (test code = ALB) 2.4 g/dL 3.4-5.0 L GLOBULIN (test code = GLOB) 4.0 gram/dL 2.7-4.2 N ALBUMIN/GLOBULIN RATIO (test code = A/G) 0.6 0.75-1.50 L CALCIUM (test code = CA) 9.2 mg/dL 8.5-10.1 N BILIRUBIN TOTAL (test code = BILT) 0.50 mg/dL 0.0-1.0 N SGOT/AST (test code = AST) 73 IUnit/L 15-37 H SGPT/ALT (test code = ALT) 85 IUnit/L 12-78 H ALKALINE PHOSPHATASE TOTAL (test code = ALKP) 192 IUnit/L 45-117 H Note change in reference range due to change in reagent. [id number] 02:58:00* Test Item Value Reference Range Interpretation Comments PHOSPHORUS (test code = PHOS) 2.8 mg/dL 2.5-4.9 N [id number] 02:58:00* Test Item Value Reference Range Interpretation Comments MAGNESIUM (test code = MAG) 2.1 mg/dL 1.8-2.4 N COMPREHENSIVE METABOLIC [id number] 02:52:00* Test Item Value Reference Range Interpretation Comments SODIUM (test code = NA) 144 mmol/L 136-145 N POTASSIUM (test code = K) 4.7 mmol/L 3.5-5.1 N CHLORIDE (test code = CL) 107.0 mmol/L 98-107 N CARBON DIOXIDE (test code = CO2) mmol/L 21-32 ANION GAP (test code = GAP) 10-20 GLUCOSE (test code = GLU) mg/dL 74-106 BLOOD UREA NITROGEN (test code = BUN) mg/dL 7-18 GLOMERULAR FILTRATION RATE (test code = GFR) mL/min >=60 CREATININE (test code = CREAT) mg/dL 0.55-1.02 BUN/CREATININE RATIO (test code = BUN/CREA) 10-20 TOTAL PROTEIN (test code = PROT) gram/dL 6.4-8.2 ALBUMIN (test code = ALB) g/dL 3.4-5.0 GLOBULIN (test code = GLOB) gram/dL 2.7-4.2 ALBUMIN/GLOBULIN RATIO (test code = A/G) 0.75-1.50 CALCIUM (test code = CA) mg/dL 8.5-10.1 BILIRUBIN TOTAL (test code = BILT) mg/dL 0.0-1.0 SGOT/AST (test code = AST) IUnit/L 15-37 SGPT/ALT (test code = ALT) IUnit/L 12-78 ALKALINE PHOSPHATASE TOTAL (test code = ALKP) IUnit/L 45-117 [id number] 02:52:00* Test Item Value Reference Range Interpretation Comments PHOSPHORUS (test code = PHOS) mg/dL 2.5-4.9 [id number] 02:52:00* Test Item Value Reference Range Interpretation Comments MAGNESIUM (test code = MAG) mg/dL 1.8-2.4 CBC W/MANUAL [id number] 02:43:00* Test Item Value Reference Range Interpretation Comments WHITE BLOOD CELL (test code = WBC) 20.7 K/mm3 4.5-12.5 H RED BLOOD CELL (test code = RBC) 2.72 mill/mm3 3.7-5.2 L HEMOGLOBIN (test code = HGB) 7.6 gram/dL 11.5-15.5 L HEMATOCRIT (test code = HCT) 24.8 % 36.0-46.0 L MEAN CELL VOLUME (test code = MCV) 91.2 fL 80-98 N MEAN CELL HGB (test code = MCH) 27.9 picogram 27.0-33.0 N MEAN CELL HGB CONCETRATION (test code = MCHC) 30.6 gram/dL 33.0-36. 0 L RED CELL DISTRIBUTION WIDTH (test code = RDW) 21.5 % 11.6-16. 2 H RED CELL DISTRIBUTION WIDTH SD (test code = RDW-SD) 71.5 fL 37 .0-51.0 H PLATELET COUNT (test code = PLT) 190 K/mm3 150-450 N MEAN PLATELET VOLUME (test code = MPV) 14.2 fL 6.7-11.0 H IMMATURE GRANULOCYTE % (test code = IG%) 0.9 % 0.0-5.0 N NUCLEATED RBC % (test code = NRBC%) 0.0 % 0-0 N NEUTROPHIL # (test code = NT#) 18.47 K/mm3 1.8-7.7 H IMMATURE GRANULOCYTE # (test code = IG#) 0.18 x10 3/uL 0-0.03 H LYMPHOCYTE # (test code = LY#) 0.76 K/mm3 1.0-5.0 L MONOCYTE # (test code = MO#) 1.26 K/mm3 0-0.8 H EOSINOPHIL # (test code = EO#) 0.00 K/mm3 0.0-0.5 N BASOPHIL # (test code = BA#) 0.04 K/mm3 0.0-0.2 N NUCLEATED RBC # (test code = NRBC#) 0.00 K/mm3 0.0-0.1 N MANUAL DIFF REQUIRED (test code = MDIFF) YES STAIN ACCEPTABILITY (test code = STN ACCEPTABLE) TOTAL CELLS COUNTED (test code = TCC) #CELLS SEGMENTED NEUTROPHILS (test code = SEG) % 39-69 LYMPHOCYTE (test code = LYMPH) % 25-55 MONOCYTE (test code = MON) % 0-10 MORPHOLOGY COMMENT (test code = MOC) PLATELET ESTIMATE (test code = PLTEST) PLATELET MORPHOLOGY (test code = PLTMORPH) CBC W/MANUAL [id number] 02:38:00* Test Item Value Reference Range Interpretation Comments WHITE BLOOD CELL (test code = WBC) 20.7 K/mm3 4.5-12.5 H RED BLOOD CELL (test code = RBC) 2.72 mill/mm3 3.7-5.2 L HEMOGLOBIN (test code = HGB) 7.6 gram/dL 11.5-15.5 L HEMATOCRIT (test code = HCT) 24.8 % 36.0-46.0 L MEAN CELL VOLUME (test code = MCV) 91.2 fL 80-98 N MEAN CELL HGB (test code = MCH) 27.9 picogram 27.0-33.0 N MEAN CELL HGB CONCETRATION (test code = MCHC) 30.6 gram/dL 33.0-36. 0 L RED CELL DISTRIBUTION WIDTH (test code = RDW) 21.5 % 11.6-16. 2 H RED CELL DISTRIBUTION WIDTH SD (test code = RDW-SD) 71.5 fL 37 .0-51.0 H PLATELET COUNT (test code = PLT) 190 K/mm3 150-450 N MEAN PLATELET VOLUME (test code = MPV) 14.2 fL 6.7-11.0 H IMMATURE GRANULOCYTE % (test code = IG%) 0.9 % 0.0-5.0 N NUCLEATED RBC % (test code = NRBC%) 0.0 % 0-0 N NEUTROPHIL # (test code = NT#) 18.47 K/mm3 1.8-7.7 H IMMATURE GRANULOCYTE # (test code = IG#) 0.18 x10 3/uL 0-0.03 H LYMPHOCYTE # (test code = LY#) 0.76 K/mm3 1.0-5.0 L MONOCYTE # (test code = MO#) 1.26 K/mm3 0-0.8 H EOSINOPHIL # (test code = EO#) 0.00 K/mm3 0.0-0.5 N BASOPHIL # (test code = BA#) 0.04 K/mm3 0.0-0.2 N NUCLEATED RBC # (test code = NRBC#) 0.00 K/mm3 0.0-0.1 N MANUAL DIFF REQUIRED (test code = MDIFF) YES STAIN ACCEPTABILITY (test code = STN ACCEPTABLE) TOTAL CELLS COUNTED (test code = TCC) #CELLS SEGMENTED NEUTROPHILS (test code = SEG) % 39-69 LYMPHOCYTE (test code = LYMPH) % 25-55 MONOCYTE (test code = MON) % 0-10 EOSINOPHIL (test code = EOS) % 0.0-5.0 CABOT RINGS (test code = CAB) MORPHOLOGY COMMENT (test code = MOC) PLATELET ESTIMATE (test code = PLTEST) PLATELET MORPHOLOGY (test code = PLTMORPH) CBC W/MANUAL [id number] 02:38:00* Test Item Value Reference Range Interpretation Comments WHITE BLOOD CELL (test code = WBC) 20.7 K/mm3 4.5-12.5 H RED BLOOD CELL (test code = RBC) 2.72 mill/mm3 3.7-5.2 L HEMOGLOBIN (test code = HGB) 7.6 gram/dL 11.5-15.5 L HEMATOCRIT (test code = HCT) 24.8 % 36.0-46.0 L MEAN CELL VOLUME (test code = MCV) 91.2 fL 80-98 N MEAN CELL HGB (test code = MCH) 27.9 picogram 27.0-33.0 N MEAN CELL HGB CONCETRATION (test code = MCHC) 30.6 gram/dL 33.0-36. 0 L RED CELL DISTRIBUTION WIDTH (test code = RDW) 21.5 % 11.6-16. 2 H RED CELL DISTRIBUTION WIDTH SD (test code = RDW-SD) 71.5 fL 37 .0-51.0 H PLATELET COUNT (test code = PLT) 190 K/mm3 150-450 N MEAN PLATELET VOLUME (test code = MPV) 14.2 fL 6.7-11.0 H IMMATURE GRANULOCYTE % (test code = IG%) 0.9 % 0.0-5.0 N NUCLEATED RBC % (test code = NRBC%) 0.0 % 0-0 N NEUTROPHIL # (test code = NT#) 18.47 K/mm3 1.8-7.7 H IMMATURE GRANULOCYTE # (test code = IG#) 0.18 x10 3/uL 0-0.03 H LYMPHOCYTE # (test code = LY#) 0.76 K/mm3 1.0-5.0 L MONOCYTE # (test code = MO#) 1.26 K/mm3 0-0.8 H EOSINOPHIL # (test code = EO#) 0.00 K/mm3 0.0-0.5 N BASOPHIL # (test code = BA#) 0.04 K/mm3 0.0-0.2 N NUCLEATED RBC # (test code = NRBC#) 0.00 K/mm3 0.0-0.1 N MANUAL DIFF REQUIRED (test code = MDIFF) YES STAIN ACCEPTABILITY (test code = STN ACCEPTABLE) TOTAL CELLS COUNTED (test code = TCC) #CELLS SEGMENTED NEUTROPHILS (test code = SEG) % 39-69 LYMPHOCYTE (test code = LYMPH) % 25-55 MONOCYTE (test code = MON) % 0-10 EOSINOPHIL (test code = EOS) % 0.0-5.0 CABOT RINGS (test code = CAB) MORPHOLOGY COMMENT (test code = MOC) PLATELET ESTIMATE (test code = PLTEST) PLATELET MORPHOLOGY (test code = PLTMORPH) CBC W/MANUAL [id number] 02:38:00* Test Item Value Reference Range Interpretation Comments WHITE BLOOD CELL (test code = WBC) 20.7 K/mm3 4.5-12.5 H RED BLOOD CELL (test code = RBC) 2.72 mill/mm3 3.7-5.2 L HEMOGLOBIN (test code = HGB) 7.6 gram/dL 11.5-15.5 L HEMATOCRIT (test code = HCT) 24.8 % 36.0-46.0 L MEAN CELL VOLUME (test code = MCV) 91.2 fL 80-98 N MEAN CELL HGB (test code = MCH) 27.9 picogram 27.0-33.0 N MEAN CELL HGB CONCETRATION (test code = MCHC) 30.6 gram/dL 33.0-36. 0 L RED CELL DISTRIBUTION WIDTH (test code = RDW) 21.5 % 11.6-16. 2 H RED CELL DISTRIBUTION WIDTH SD (test code = RDW-SD) 71.5 fL 37 .0-51.0 H PLATELET COUNT (test code = PLT) 190 K/mm3 150-450 N MEAN PLATELET VOLUME (test code = MPV) 14.2 fL 6.7-11.0 H IMMATURE GRANULOCYTE % (test code = IG%) 0.9 % 0.0-5.0 N NUCLEATED RBC % (test code = NRBC%) 0.0 % 0-0 N NEUTROPHIL # (test code = NT#) 18.47 K/mm3 1.8-7.7 H IMMATURE GRANULOCYTE # (test code = IG#) 0.18 x10 3/uL 0-0.03 H LYMPHOCYTE # (test code = LY#) 0.76 K/mm3 1.0-5.0 L MONOCYTE # (test code = MO#) 1.26 K/mm3 0-0.8 H EOSINOPHIL # (test code = EO#) 0.00 K/mm3 0.0-0.5 N BASOPHIL # (test code = BA#) 0.04 K/mm3 0.0-0.2 N NUCLEATED RBC # (test code = NRBC#) 0.00 K/mm3 0.0-0.1 N MANUAL DIFF REQUIRED (test code = MDIFF) YES STAIN ACCEPTABILITY (test code = STN ACCEPTABLE) TOTAL CELLS COUNTED (test code = TCC) #CELLS SEGMENTED NEUTROPHILS (test code = SEG) % 39-69 LYMPHOCYTE (test code = LYMPH) % 25-55 MONOCYTE (test code = MON) % 0-10 EOSINOPHIL (test code = EOS) % 0.0-5.0 MORPHOLOGY COMMENT (test code = MOC) PLATELET ESTIMATE (test code = PLTEST) PLATELET MORPHOLOGY (test code = PLTMORPH) CBC W/MANUAL [id number] 02:38:00* Test Item Value Reference Range Interpretation Comments WHITE BLOOD CELL (test code = WBC) 20.7 K/mm3 4.5-12.5 H RED BLOOD CELL (test code = RBC) 2.72 mill/mm3 3.7-5.2 L HEMOGLOBIN (test code = HGB) 7.6 gram/dL 11.5-15.5 L HEMATOCRIT (test code = HCT) 24.8 % 36.0-46.0 L MEAN CELL VOLUME (test code = MCV) 91.2 fL 80-98 N MEAN CELL HGB (test code = MCH) 27.9 picogram 27.0-33.0 N MEAN CELL HGB CONCETRATION (test code = MCHC) 30.6 gram/dL 33.0-36. 0 L RED CELL DISTRIBUTION WIDTH (test code = RDW) 21.5 % 11.6-16. 2 H RED CELL DISTRIBUTION WIDTH SD (test code = RDW-SD) 71.5 fL 37 .0-51.0 H PLATELET COUNT (test code = PLT) 190 K/mm3 150-450 N MEAN PLATELET VOLUME (test code = MPV) 14.2 fL 6.7-11.0 H IMMATURE GRANULOCYTE % (test code = IG%) 0.9 % 0.0-5.0 N NUCLEATED RBC % (test code = NRBC%) 0.0 % 0-0 N NEUTROPHIL # (test code = NT#) 18.47 K/mm3 1.8-7.7 H IMMATURE GRANULOCYTE # (test code = IG#) 0.18 x10 3/uL 0-0.03 H LYMPHOCYTE # (test code = LY#) 0.76 K/mm3 1.0-5.0 L MONOCYTE # (test code = MO#) 1.26 K/mm3 0-0.8 H EOSINOPHIL # (test code = EO#) 0.00 K/mm3 0.0-0.5 N BASOPHIL # (test code = BA#) 0.04 K/mm3 0.0-0.2 N NUCLEATED RBC # (test code = NRBC#) 0.00 K/mm3 0.0-0.1 N MANUAL DIFF REQUIRED (test code = MDIFF) YES STAIN ACCEPTABILITY (test code = STN ACCEPTABLE) TOTAL CELLS COUNTED (test code = TCC) #CELLS SEGMENTED NEUTROPHILS (test code = SEG) % 39-69 LYMPHOCYTE (test code = LYMPH) % 25-55 MONOCYTE (test code = MON) % 0-10 EOSINOPHIL (test code = EOS) % 0.0-5.0 CABOT RINGS (test code = CAB) MORPHOLOGY COMMENT (test code = MOC) PLATELET ESTIMATE (test code = PLTEST) PLATELET MORPHOLOGY (test code = PLTMORPH) [id number] 22:38:00* Test Item Value Reference Range Interpretation Comments GLUBED (test code = GLUBED) 231 mg/dL 74-106 H Performed by certified carousel operator at [facility] [id number] 16:49:00* Test Item Value Reference Range Interpretation Comments GLUBED (test code = GLUBED) 222 mg/dL 74-106 H Performed by certified carousel operator at [facility] [id number] 10:42:00* Test Item Value Reference Range Interpretation Comments GLUBED (test code = GLUBED) 97 mg/dL 74-106 N Performed by certified carousel operator at [facility] - XR CHEST 1 [id number] 06:14:00 FAX: Justo Kaplan [place]: B St: ADM FAX: Josh Roldan MD [phone] FAX: Kevin Bass MD [phone] Name: DAYANA RICHARDSON [facility] : 1960 Age/S: 59/F [address] Unit #: [id number] Loc: V.S14 [place] [address] Phys: Justo Kaplan Acct: [id number] Dis Date: Status: ADM IN PH ONE #: [phone] Exam Date: 09/20/2019523 FAX #: [phone] Reason: RESPIRATORY FAILURE EXAMS: CPT CODE: [id number] XR CHEST 1 V 18203 CLINICAL HISTO RY: RESPIRATORY FAILURE TECHNIQUE: AP chest x-ray CO MPARISON: Previous day. IMPRESSION: Developing patchy right basilar airspace opacification. Persistent patchy left karla g consolidation. Pulmonary hyperinflation, suggesting COPD. No pleural e ffusion. Normal heart size. ET and NG tubes. LOCATION: at 0614 Reported and signed by: Rsoetta Gray D.O. CC: Justo Kaplan; Josh Roldan MD; Kevin Vega MD Technologist: CAMERON Weiss Trnscrd Date/Time/By: 09/20/2019 (06) : By: [email or web address] Orig Print D/T: S: 09/20/2019 (0612) PAGE 1 Signed Report BASIC METABOLIC [id number] 04:07:00* Test Item Value Reference Range Interpretation Comments SODIUM (test code = NA) 141 mmol/L 136-145 N POTASSIUM (test code = K) 5.2 mmol/L 3.5-5.1 H CHLORIDE (test code = CL) 104.0 mmol/L 98-107 N CARBON DIOXIDE (test code = CO2) 34.0 mmol/L 21-32 H ANION GAP (test code = GAP) 8.2 10-20 L GLUCOSE (test code = GLU) 175 mg/dL 74-106 H BLOOD UREA NITROGEN (test code = BUN) 67 mg/dL 7-18 H GLOMERULAR FILTRATION RATE (test code = GFR) 57 mL/min >=60 Estimated GFR by using Modified MDRD formula.Chronic kidney disease is defined as either kidney damageor GFR <60 mL/min/1.73 m2 for >3 months. CREATININE (test code = CREAT) 1.00 mg/dL 0.55-1.02 N Note change in reference range due to change in reagent. BUN/CREATININE RATIO (test code = BUN/CREA) 67.0 10-20 H CALCIUM (test code = CA) 9.5 mg/dL 8.5-10.1 N [id number] 04:07:00* Test Item Value Reference Range Interpretation Comments PHOSPHORUS (test code = PHOS) 2.4 mg/dL 2.5-4.9 L [id number] 04:07:00* Test Item Value Reference Range Interpretation Comments MAGNESIUM (test code = MAG) 2.1 mg/dL 1.8-2.4 N CALCIUM [id number] 04:07:00* Test Item Value Reference Range Interpretation Comments CALCIUM IONIZED (test code = DINAH) 1.39 mmol/L 1.12-1.32 H BASIC METABOLIC [id number] 03:25:00* Test Item Value Reference Range Interpretation Comments SODIUM (test code = NA) 141 mmol/L 136-145 N POTASSIUM (test code = K) 5.2 mmol/L 3.5-5.1 H CHLORIDE (test code = CL) 104.0 mmol/L 98-107 N CARBON DIOXIDE (test code = CO2) 34.0 mmol/L 21-32 H ANION GAP (test code = GAP) 8.2 10-20 L GLUCOSE (test code = GLU) 175 mg/dL 74-106 H BLOOD UREA NITROGEN (test code = BUN) 67 mg/dL 7-18 H GLOMERULAR FILTRATION RATE (test code = GFR) 57 mL/min >=60 Estimated GFR by using Modified MDRD formula.Chronic kidney disease is defined as either kidney damageor GFR <60 mL/min/1.73 m2 for >3 months. CREATININE (test code = CREAT) 1.00 mg/dL 0.55-1.02 N Note change in reference range due to change in reagent. BUN/CREATININE RATIO (test code = BUN/CREA) 67.0 10-20 H CALCIUM (test code = CA) 9.5 mg/dL 8.5-10.1 N [id number] 03:25:00* Test Item Value Reference Range Interpretation Comments PHOSPHORUS (test code = PHOS) 2.4 mg/dL 2.5-4.9 L [id number] 03:25:00* Test Item Value Reference Range Interpretation Comments MAGNESIUM (test code = MAG) 2.1 mg/dL 1.8-2.4 N CALCIUM [id number] 03:25:00* Test Item Value Reference Range Interpretation Comments CALCIUM IONIZED (test code = DINAH) mmol/L 1.12-1.32 CBC W/MANUAL [id number] 03:07:00* Test Item Value Reference Range Interpretation Comments WHITE BLOOD CELL (test code = WBC) 25.0 K/mm3 4.5-12.5 H RED BLOOD CELL (test code = RBC) 2.74 mill/mm3 3.7-5.2 L HEMOGLOBIN (test code = HGB) 7.7 gram/dL 11.5-15.5 L HEMATOCRIT (test code = HCT) 24.8 % 36.0-46.0 L MEAN CELL VOLUME (test code = MCV) 90.5 fL 80-98 N MEAN CELL HGB (test code = MCH) 28.1 picogram 27.0-33.0 N MEAN CELL HGB CONCETRATION (test code = MCHC) 31.0 gram/dL 33.0-36. 0 L RED CELL DISTRIBUTION WIDTH (test code = RDW) 20.8 % 11.6-16. 2 H RED CELL DISTRIBUTION WIDTH SD (test code = RDW-SD) 67.7 fL 37 .0-51.0 H PLATELET COUNT (test code = PLT) 199 K/mm3 150-450 N MEAN PLATELET VOLUME (test code = MPV) 14.0 fL 6.7-11.0 H IMMATURE GRANULOCYTE % (test code = IG%) 1.2 % 0.0-5.0 N NUCLEATED RBC % (test code = NRBC%) 0.1 % 0-0 H NEUTROPHIL # (test code = NT#) 21.85 K/mm3 1.8-7.7 H IMMATURE GRANULOCYTE # (test code = IG#) 0.31 x10 3/uL 0-0.03 H LYMPHOCYTE # (test code = LY#) 0.93 K/mm3 1.0-5.0 L MONOCYTE # (test code = MO#) 1.87 K/mm3 0-0.8 H EOSINOPHIL # (test code = EO#) 0.01 K/mm3 0.0-0.5 N BASOPHIL # (test code = BA#) 0.04 K/mm3 0.0-0.2 N NUCLEATED RBC # (test code = NRBC#) 0.03 K/mm3 0.0-0.1 N MANUAL DIFF REQUIRED (test code = MDIFF) YES STAIN ACCEPTABILITY (test code = STN ACCEPTABLE) STAIN ACCEPTABLE TOTAL CELLS COUNTED (test code = TCC) 117 #CELLS SEGMENTED NEUTROPHILS (test code = SEG) 91.4 % 39-69 H BAND NEUTROPHIL (test code = BAND) 0 % 0-10 N LYMPHOCYTE (test code = LYMPH) 0.9 % 25-55 L REACTIVE LYMPH (test code = RELYMPH) 0 % MONOCYTE (test code = MON) 7.7 % 0-10 N EOSINOPHIL (test code = EOS) 0 % 0.0-5.0 N BASOPHIL (test code = BASO) 0 % 0-1.0 N METAMYELOCYTE (test code = META) 0 % 0-0 N MYELOCYTE (test code = MYELO) 0 % 0.0-0.0 N PROMYELOCYTE (test code = PROM) 0 % 0-0 N ANISOCYTOSIS (test code = ANISO) 1+ MACROCYTOSIS (test code = MACR) 1+ PLATELET ESTIMATE (test code = PLTEST) ADEQUATE PLATELET MORPHOLOGY (test code = PLTMORPH) SIZE VARIABLE IMMATURE FORMS (test code = IMMAT) 0 % 0-0 N CBC W/MANUAL [id number] 02:19:00* Test Item Value Reference Range Interpretation Comments WHITE BLOOD CELL (test code = WBC) 25.0 K/mm3 4.5-12.5 H RED BLOOD CELL (test code = RBC) 2.74 mill/mm3 3.7-5.2 L HEMOGLOBIN (test code = HGB) 7.7 gram/dL 11.5-15.5 L HEMATOCRIT (test code = HCT) 24.8 % 36.0-46.0 L MEAN CELL VOLUME (test code = MCV) 90.5 fL 80-98 N MEAN CELL HGB (test code = MCH) 28.1 picogram 27.0-33.0 N MEAN CELL HGB CONCETRATION (test code = MCHC) 31.0 gram/dL 33.0-36. 0 L RED CELL DISTRIBUTION WIDTH (test code = RDW) 20.8 % 11.6-16. 2 H RED CELL DISTRIBUTION WIDTH SD (test code = RDW-SD) 67.7 fL 37 .0-51.0 H PLATELET COUNT (test code = PLT) 199 K/mm3 150-450 N MEAN PLATELET VOLUME (test code = MPV) 14.0 fL 6.7-11.0 H IMMATURE GRANULOCYTE % (test code = IG%) 1.2 % 0.0-5.0 N NUCLEATED RBC % (test code = NRBC%) 0.1 % 0-0 H NEUTROPHIL # (test code = NT#) 21.85 K/mm3 1.8-7.7 H IMMATURE GRANULOCYTE # (test code = IG#) 0.31 x10 3/uL 0-0.03 H LYMPHOCYTE # (test code = LY#) 0.93 K/mm3 1.0-5.0 L MONOCYTE # (test code = MO#) 1.87 K/mm3 0-0.8 H EOSINOPHIL # (test code = EO#) 0.01 K/mm3 0.0-0.5 N BASOPHIL # (test code = BA#) 0.04 K/mm3 0.0-0.2 N NUCLEATED RBC # (test code = NRBC#) 0.03 K/mm3 0.0-0.1 N MANUAL DIFF REQUIRED (test code = MDIFF) YES STAIN ACCEPTABILITY (test code = STN ACCEPTABLE) TOTAL CELLS COUNTED (test code = TCC) #CELLS SEGMENTED NEUTROPHILS (test code = SEG) % 39-69 LYMPHOCYTE (test code = LYMPH) % 25-55 MONOCYTE (test code = MON) % 0-10 EOSINOPHIL (test code = EOS) % 0.0-5.0 CABOT RINGS (test code = CAB) MORPHOLOGY COMMENT (test code = MOC) PLATELET ESTIMATE (test code = PLTEST) PLATELET MORPHOLOGY (test code = PLTMORPH) CBC W/MANUAL [id number] 02:19:00* Test Item Value Reference Range Interpretation Comments WHITE BLOOD CELL (test code = WBC) 25.0 K/mm3 4.5-12.5 H RED BLOOD CELL (test code = RBC) 2.74 mill/mm3 3.7-5.2 L HEMOGLOBIN (test code = HGB) 7.7 gram/dL 11.5-15.5 L HEMATOCRIT (test code = HCT) 24.8 % 36.0-46.0 L MEAN CELL VOLUME (test code = MCV) 90.5 fL 80-98 N MEAN CELL HGB (test code = MCH) 28.1 picogram 27.0-33.0 N MEAN CELL HGB CONCETRATION (test code = MCHC) 31.0 gram/dL 33.0-36. 0 L RED CELL DISTRIBUTION WIDTH (test code = RDW) 20.8 % 11.6-16. 2 H RED CELL DISTRIBUTION WIDTH SD (test code = RDW-SD) 67.7 fL 37 .0-51.0 H PLATELET COUNT (test code = PLT) 199 K/mm3 150-450 N MEAN PLATELET VOLUME (test code = MPV) 14.0 fL 6.7-11.0 H IMMATURE GRANULOCYTE % (test code = IG%) 1.2 % 0.0-5.0 N NUCLEATED RBC % (test code = NRBC%) 0.1 % 0-0 H NEUTROPHIL # (test code = NT#) 21.85 K/mm3 1.8-7.7 H IMMATURE GRANULOCYTE # (test code = IG#) 0.31 x10 3/uL 0-0.03 H LYMPHOCYTE # (test code = LY#) 0.93 K/mm3 1.0-5.0 L MONOCYTE # (test code = MO#) 1.87 K/mm3 0-0.8 H EOSINOPHIL # (test code = EO#) 0.01 K/mm3 0.0-0.5 N BASOPHIL # (test code = BA#) 0.04 K/mm3 0.0-0.2 N NUCLEATED RBC # (test code = NRBC#) 0.03 K/mm3 0.0-0.1 N MANUAL DIFF REQUIRED (test code = MDIFF) YES STAIN ACCEPTABILITY (test code = STN ACCEPTABLE) TOTAL CELLS COUNTED (test code = TCC) #CELLS SEGMENTED NEUTROPHILS (test code = SEG) % 39-69 LYMPHOCYTE (test code = LYMPH) % 25-55 MONOCYTE (test code = MON) % 0-10 EOSINOPHIL (test code = EOS) % 0.0-5.0 CABOT RINGS (test code = CAB) MORPHOLOGY COMMENT (test code = MOC) PLATELET ESTIMATE (test code = PLTEST) PLATELET MORPHOLOGY (test code = PLTMORPH) CBC W/MANUAL [id number] 02:19:00* Test Item Value Reference Range Interpretation Comments WHITE BLOOD CELL (test code = WBC) 25.0 K/mm3 4.5-12.5 H RED BLOOD CELL (test code = RBC) 2.74 mill/mm3 3.7-5.2 L HEMOGLOBIN (test code = HGB) 7.7 gram/dL 11.5-15.5 L HEMATOCRIT (test code = HCT) 24.8 % 36.0-46.0 L MEAN CELL VOLUME (test code = MCV) 90.5 fL 80-98 N MEAN CELL HGB (test code = MCH) 28.1 picogram 27.0-33.0 N MEAN CELL HGB CONCETRATION (test code = MCHC) 31.0 gram/dL 33.0-36. 0 L RED CELL DISTRIBUTION WIDTH (test code = RDW) 20.8 % 11.6-16. 2 H RED CELL DISTRIBUTION WIDTH SD (test code = RDW-SD) 67.7 fL 37 .0-51.0 H PLATELET COUNT (test code = PLT) 199 K/mm3 150-450 N MEAN PLATELET VOLUME (test code = MPV) 14.0 fL 6.7-11.0 H IMMATURE GRANULOCYTE % (test code = IG%) 1.2 % 0.0-5.0 N NUCLEATED RBC % (test code = NRBC%) 0.1 % 0-0 H NEUTROPHIL # (test code = NT#) 21.85 K/mm3 1.8-7.7 H IMMATURE GRANULOCYTE # (test code = IG#) 0.31 x10 3/uL 0-0.03 H LYMPHOCYTE # (test code = LY#) 0.93 K/mm3 1.0-5.0 L MONOCYTE # (test code = MO#) 1.87 K/mm3 0-0.8 H EOSINOPHIL # (test code = EO#) 0.01 K/mm3 0.0-0.5 N BASOPHIL # (test code = BA#) 0.04 K/mm3 0.0-0.2 N NUCLEATED RBC # (test code = NRBC#) 0.03 K/mm3 0.0-0.1 N MANUAL DIFF REQUIRED (test code = MDIFF) YES STAIN ACCEPTABILITY (test code = STN ACCEPTABLE) TOTAL CELLS COUNTED (test code = TCC) #CELLS SEGMENTED NEUTROPHILS (test code = SEG) % 39-69 LYMPHOCYTE (test code = LYMPH) % 25-55 MONOCYTE (test code = MON) % 0-10 EOSINOPHIL (test code = EOS) % 0.0-5.0 MORPHOLOGY COMMENT (test code = MOC) PLATELET ESTIMATE (test code = PLTEST) PLATELET MORPHOLOGY (test code = PLTMORPH) CBC W/MANUAL [id number] 02:19:00* Test Item Value Reference Range Interpretation Comments WHITE BLOOD CELL (test code = WBC) 25.0 K/mm3 4.5-12.5 H RED BLOOD CELL (test code = RBC) 2.74 mill/mm3 3.7-5.2 L HEMOGLOBIN (test code = HGB) 7.7 gram/dL 11.5-15.5 L HEMATOCRIT (test code = HCT) 24.8 % 36.0-46.0 L MEAN CELL VOLUME (test code = MCV) 90.5 fL 80-98 N MEAN CELL HGB (test code = MCH) 28.1 picogram 27.0-33.0 N MEAN CELL HGB CONCETRATION (test code = MCHC) 31.0 gram/dL 33.0-36. 0 L RED CELL DISTRIBUTION WIDTH (test code = RDW) 20.8 % 11.6-16. 2 H RED CELL DISTRIBUTION WIDTH SD (test code = RDW-SD) 67.7 fL 37 .0-51.0 H PLATELET COUNT (test code = PLT) 199 K/mm3 150-450 N MEAN PLATELET VOLUME (test code = MPV) 14.0 fL 6.7-11.0 H IMMATURE GRANULOCYTE % (test code = IG%) 1.2 % 0.0-5.0 N NUCLEATED RBC % (test code = NRBC%) 0.1 % 0-0 H NEUTROPHIL # (test code = NT#) 21.85 K/mm3 1.8-7.7 H IMMATURE GRANULOCYTE # (test code = IG#) 0.31 x10 3/uL 0-0.03 H LYMPHOCYTE # (test code = LY#) 0.93 K/mm3 1.0-5.0 L MONOCYTE # (test code = MO#) 1.87 K/mm3 0-0.8 H EOSINOPHIL # (test code = EO#) 0.01 K/mm3 0.0-0.5 N BASOPHIL # (test code = BA#) 0.04 K/mm3 0.0-0.2 N NUCLEATED RBC # (test code = NRBC#) 0.03 K/mm3 0.0-0.1 N MANUAL DIFF REQUIRED (test code = MDIFF) YES STAIN ACCEPTABILITY (test code = STN ACCEPTABLE) TOTAL CELLS COUNTED (test code = TCC) #CELLS SEGMENTED NEUTROPHILS (test code = SEG) % 39-69 LYMPHOCYTE (test code = LYMPH) % 25-55 MONOCYTE (test code = MON) % 0-10 MORPHOLOGY COMMENT (test code = MOC) PLATELET ESTIMATE (test code = PLTEST) PLATELET MORPHOLOGY (test code = PLTMORPH) CBC W/MANUAL [id number] 02:19:00* Test Item Value Reference Range Interpretation Comments WHITE BLOOD CELL (test code = WBC) 25.0 K/mm3 4.5-12.5 H RED BLOOD CELL (test code = RBC) 2.74 mill/mm3 3.7-5.2 L HEMOGLOBIN (test code = HGB) 7.7 gram/dL 11.5-15.5 L HEMATOCRIT (test code = HCT) 24.8 % 36.0-46.0 L MEAN CELL VOLUME (test code = MCV) 90.5 fL 80-98 N MEAN CELL HGB (test code = MCH) 28.1 picogram 27.0-33.0 N MEAN CELL HGB CONCETRATION (test code = MCHC) 31.0 gram/dL 33.0-36. 0 L RED CELL DISTRIBUTION WIDTH (test code = RDW) 20.8 % 11.6-16. 2 H RED CELL DISTRIBUTION WIDTH SD (test code = RDW-SD) 67.7 fL 37 .0-51.0 H PLATELET COUNT (test code = PLT) 199 K/mm3 150-450 N MEAN PLATELET VOLUME (test code = MPV) 14.0 fL 6.7-11.0 H IMMATURE GRANULOCYTE % (test code = IG%) 1.2 % 0.0-5.0 N NUCLEATED RBC % (test code = NRBC%) 0.1 % 0-0 H NEUTROPHIL # (test code = NT#) 21.85 K/mm3 1.8-7.7 H IMMATURE GRANULOCYTE # (test code = IG#) 0.31 x10 3/uL 0-0.03 H LYMPHOCYTE # (test code = LY#) 0.93 K/mm3 1.0-5.0 L MONOCYTE # (test code = MO#) 1.87 K/mm3 0-0.8 H EOSINOPHIL # (test code = EO#) 0.01 K/mm3 0.0-0.5 N BASOPHIL # (test code = BA#) 0.04 K/mm3 0.0-0.2 N NUCLEATED RBC # (test code = NRBC#) 0.03 K/mm3 0.0-0.1 N MANUAL DIFF REQUIRED (test code = MDIFF) YES STAIN ACCEPTABILITY (test code = STN ACCEPTABLE) TOTAL CELLS COUNTED (test code = TCC) #CELLS SEGMENTED NEUTROPHILS (test code = SEG) % 39-69 LYMPHOCYTE (test code = LYMPH) % 25-55 MONOCYTE (test code = MON) % 0-10 EOSINOPHIL (test code = EOS) % 0.0-5.0 CABOT RINGS (test code = CAB) MORPHOLOGY COMMENT (test code = MOC) PLATELET ESTIMATE (test code = PLTEST) PLATELET MORPHOLOGY (test code = PLTMORPH) [id number] 20:31:00* Test Item Value Reference Range Interpretation Comments GLUBED (test code = GLUBED) 429 mg/dL 74-106 H Performed by certified carousel operator at [facility] [id number] 16:46:00* Test Item Value Reference Range Interpretation Comments GLUBED (test code = GLUBED) 390 mg/dL 74-106 H Performed by certified carousel operator at [facility] CBC W/MANUAL [id number] 15:02:00* Test Item Value Reference Range Interpretation Comments WHITE BLOOD CELL (test code = WBC) 22.4 K/mm3 4.5-12.5 H RED BLOOD CELL (test code = RBC) 2.71 mill/mm3 3.7-5.2 L HEMOGLOBIN (test code = HGB) 7.6 gram/dL 11.5-15.5 L HEMATOCRIT (test code = HCT) 24.9 % 36.0-46.0 L MEAN CELL VOLUME (test code = MCV) 91.9 fL 80-98 N MEAN CELL HGB (test code = MCH) 28.0 picogram 27.0-33.0 N MEAN CELL HGB CONCETRATION (test code = MCHC) 30.5 gram/dL 33.0-36. 0 L RED CELL DISTRIBUTION WIDTH (test code = RDW) 20.8 % 11.6-16. 2 H RED CELL DISTRIBUTION WIDTH SD (test code = RDW-SD) 68.3 fL 37 .0-51.0 H PLATELET COUNT (test code = PLT) 181 K/mm3 150-450 N MEAN PLATELET VOLUME (test code = MPV) 14.0 fL 6.7-11.0 H IMMATURE GRANULOCYTE % (test code = IG%) 0.7 % 0.0-5.0 N NUCLEATED RBC % (test code = NRBC%) 0.1 % 0-0 H NEUTROPHIL # (test code = NT#) 19.70 K/mm3 1.8-7.7 H IMMATURE GRANULOCYTE # (test code = IG#) 0.16 x10 3/uL 0-0.03 H LYMPHOCYTE # (test code = LY#) 0.73 K/mm3 1.0-5.0 L MONOCYTE # (test code = MO#) 1.75 K/mm3 0-0.8 H EOSINOPHIL # (test code = EO#) 0.00 K/mm3 0.0-0.5 N BASOPHIL # (test code = BA#) 0.03 K/mm3 0.0-0.2 N NUCLEATED RBC # (test code = NRBC#) 0.02 K/mm3 0.0-0.1 N MANUAL DIFF REQUIRED (test code = MDIFF) YES STAIN ACCEPTABILITY (test code = STN ACCEPTABLE) STAIN ACCEPTABLE TOTAL CELLS COUNTED (test code = TCC) 115 #CELLS SEGMENTED NEUTROPHILS (test code = SEG) 93.0 % 39-69 H BAND NEUTROPHIL (test code = BAND) 0 % 0-10 N LYMPHOCYTE (test code = LYMPH) 3.5 % 25-55 L REACTIVE LYMPH (test code = RELYMPH) 0 % MONOCYTE (test code = MON) 3.5 % 0-10 N EOSINOPHIL (test code = EOS) 0 % 0.0-5.0 N BASOPHIL (test code = BASO) 0 % 0-1.0 N METAMYELOCYTE (test code = META) 0 % 0-0 N MYELOCYTE (test code = MYELO) 0 % 0.0-0.0 N PROMYELOCYTE (test code = PROM) 0 % 0-0 N POLYCHROMASIA (test code = POLC) 1+ HYPOCHROMIA (test code = HYPO) 2+ POIKILOCYTOSIS (test code = POIK) 1+ ANISOCYTOSIS (test code = ANISO) 1+ MORPHOLOGY COMMENT (test code = MOC) NORMAL PLATELET ESTIMATE (test code = PLTEST) ADEQUATE PLATELET MORPHOLOGY (test code = PLTMORPH) NORMAL IMMATURE FORMS (test code = IMMAT) 0 % 0-0 N FE W/TOTAL IRON BINDING [id number] 14:59:00* Test Item Value Reference Range Interpretation Comments SERUM IRON (test code = IRON) 26 ug/dL 50-175 L TOTAL IRON BINDING CAPACITY (test code = TIBC) 323 mcg/dL 250-450 N IRON SATURATION (test code = FESAT) 8.05 % 13-45 L CBC W/MANUAL [id number] 14:23:00* Test Item Value Reference Range Interpretation Comments WHITE BLOOD CELL (test code = WBC) 22.4 K/mm3 4.5-12.5 H RED BLOOD CELL (test code = RBC) 2.71 mill/mm3 3.7-5.2 L HEMOGLOBIN (test code = HGB) 7.6 gram/dL 11.5-15.5 L HEMATOCRIT (test code = HCT) 24.9 % 36.0-46.0 L MEAN CELL VOLUME (test code = MCV) 91.9 fL 80-98 N MEAN CELL HGB (test code = MCH) 28.0 picogram 27.0-33.0 N MEAN CELL HGB CONCETRATION (test code = MCHC) 30.5 gram/dL 33.0-36. 0 L RED CELL DISTRIBUTION WIDTH (test code = RDW) 20.8 % 11.6-16. 2 H RED CELL DISTRIBUTION WIDTH SD (test code = RDW-SD) 68.3 fL 37 .0-51.0 H PLATELET COUNT (test code = PLT) 181 K/mm3 150-450 N MEAN PLATELET VOLUME (test code = MPV) 14.0 fL 6.7-11.0 H IMMATURE GRANULOCYTE % (test code = IG%) 0.7 % 0.0-5.0 N NUCLEATED RBC % (test code = NRBC%) 0.1 % 0-0 H NEUTROPHIL # (test code = NT#) 19.70 K/mm3 1.8-7.7 H IMMATURE GRANULOCYTE # (test code = IG#) 0.16 x10 3/uL 0-0.03 H LYMPHOCYTE # (test code = LY#) 0.73 K/mm3 1.0-5.0 L MONOCYTE # (test code = MO#) 1.75 K/mm3 0-0.8 H EOSINOPHIL # (test code = EO#) 0.00 K/mm3 0.0-0.5 N BASOPHIL # (test code = BA#) 0.03 K/mm3 0.0-0.2 N NUCLEATED RBC # (test code = NRBC#) 0.02 K/mm3 0.0-0.1 N MANUAL DIFF REQUIRED (test code = MDIFF) YES STAIN ACCEPTABILITY (test code = STN ACCEPTABLE) TOTAL CELLS COUNTED (test code = TCC) #CELLS SEGMENTED NEUTROPHILS (test code = SEG) % 39-69 LYMPHOCYTE (test code = LYMPH) % 25-55 MONOCYTE (test code = MON) % 0-10 EOSINOPHIL (test code = EOS) % 0.0-5.0 CABOT RINGS (test code = CAB) MORPHOLOGY COMMENT (test code = MOC) PLATELET ESTIMATE (test code = PLTEST) PLATELET MORPHOLOGY (test code = PLTMORPH) CBC W/MANUAL [id number] 14:23:00* Test Item Value Reference Range Interpretation Comments WHITE BLOOD CELL (test code = WBC) 22.4 K/mm3 4.5-12.5 H RED BLOOD CELL (test code = RBC) 2.71 mill/mm3 3.7-5.2 L HEMOGLOBIN (test code = HGB) 7.6 gram/dL 11.5-15.5 L HEMATOCRIT (test code = HCT) 24.9 % 36.0-46.0 L MEAN CELL VOLUME (test code = MCV) 91.9 fL 80-98 N MEAN CELL HGB (test code = MCH) 28.0 picogram 27.0-33.0 N MEAN CELL HGB CONCETRATION (test code = MCHC) 30.5 gram/dL 33.0-36. 0 L RED CELL DISTRIBUTION WIDTH (test code = RDW) 20.8 % 11.6-16. 2 H RED CELL DISTRIBUTION WIDTH SD (test code = RDW-SD) 68.3 fL 37 .0-51.0 H PLATELET COUNT (test code = PLT) 181 K/mm3 150-450 N MEAN PLATELET VOLUME (test code = MPV) 14.0 fL 6.7-11.0 H IMMATURE GRANULOCYTE % (test code = IG%) 0.7 % 0.0-5.0 N NUCLEATED RBC % (test code = NRBC%) 0.1 % 0-0 H NEUTROPHIL # (test code = NT#) 19.70 K/mm3 1.8-7.7 H IMMATURE GRANULOCYTE # (test code = IG#) 0.16 x10 3/uL 0-0.03 H LYMPHOCYTE # (test code = LY#) 0.73 K/mm3 1.0-5.0 L MONOCYTE # (test code = MO#) 1.75 K/mm3 0-0.8 H EOSINOPHIL # (test code = EO#) 0.00 K/mm3 0.0-0.5 N BASOPHIL # (test code = BA#) 0.03 K/mm3 0.0-0.2 N NUCLEATED RBC # (test code = NRBC#) 0.02 K/mm3 0.0-0.1 N MANUAL DIFF REQUIRED (test code = MDIFF) YES STAIN ACCEPTABILITY (test code = STN ACCEPTABLE) TOTAL CELLS COUNTED (test code = TCC) #CELLS SEGMENTED NEUTROPHILS (test code = SEG) % 39-69 LYMPHOCYTE (test code = LYMPH) % 25-55 MONOCYTE (test code = MON) % 0-10 EOSINOPHIL (test code = EOS) % 0.0-5.0 MORPHOLOGY COMMENT (test code = MOC) PLATELET ESTIMATE (test code = PLTEST) PLATELET MORPHOLOGY (test code = PLTMORPH) CBC W/MANUAL [id number] 14:23:00* Test Item Value Reference Range Interpretation Comments WHITE BLOOD CELL (test code = WBC) 22.4 K/mm3 4.5-12.5 H RED BLOOD CELL (test code = RBC) 2.71 mill/mm3 3.7-5.2 L HEMOGLOBIN (test code = HGB) 7.6 gram/dL 11.5-15.5 L HEMATOCRIT (test code = HCT) 24.9 % 36.0-46.0 L MEAN CELL VOLUME (test code = MCV) 91.9 fL 80-98 N MEAN CELL HGB (test code = MCH) 28.0 picogram 27.0-33.0 N MEAN CELL HGB CONCETRATION (test code = MCHC) 30.5 gram/dL 33.0-36. 0 L RED CELL DISTRIBUTION WIDTH (test code = RDW) 20.8 % 11.6-16. 2 H RED CELL DISTRIBUTION WIDTH SD (test code = RDW-SD) 68.3 fL 37 .0-51.0 H PLATELET COUNT (test code = PLT) 181 K/mm3 150-450 N MEAN PLATELET VOLUME (test code = MPV) 14.0 fL 6.7-11.0 H IMMATURE GRANULOCYTE % (test code = IG%) 0.7 % 0.0-5.0 N NUCLEATED RBC % (test code = NRBC%) 0.1 % 0-0 H NEUTROPHIL # (test code = NT#) 19.70 K/mm3 1.8-7.7 H IMMATURE GRANULOCYTE # (test code = IG#) 0.16 x10 3/uL 0-0.03 H LYMPHOCYTE # (test code = LY#) 0.73 K/mm3 1.0-5.0 L MONOCYTE # (test code = MO#) 1.75 K/mm3 0-0.8 H EOSINOPHIL # (test code = EO#) 0.00 K/mm3 0.0-0.5 N BASOPHIL # (test code = BA#) 0.03 K/mm3 0.0-0.2 N NUCLEATED RBC # (test code = NRBC#) 0.02 K/mm3 0.0-0.1 N MANUAL DIFF REQUIRED (test code = MDIFF) YES STAIN ACCEPTABILITY (test code = STN ACCEPTABLE) TOTAL CELLS COUNTED (test code = TCC) #CELLS SEGMENTED NEUTROPHILS (test code = SEG) % 39-69 LYMPHOCYTE (test code = LYMPH) % 25-55 MONOCYTE (test code = MON) % 0-10 MORPHOLOGY COMMENT (test code = MOC) PLATELET ESTIMATE (test code = PLTEST) PLATELET MORPHOLOGY (test code = PLTMORPH) CBC W/MANUAL [id number] 14:22:00* Test Item Value Reference Range Interpretation Comments WHITE BLOOD CELL (test code = WBC) 22.4 K/mm3 4.5-12.5 H RED BLOOD CELL (test code = RBC) 2.71 mill/mm3 3.7-5.2 L HEMOGLOBIN (test code = HGB) 7.6 gram/dL 11.5-15.5 L HEMATOCRIT (test code = HCT) 24.9 % 36.0-46.0 L MEAN CELL VOLUME (test code = MCV) 91.9 fL 80-98 N MEAN CELL HGB (test code = MCH) 28.0 picogram 27.0-33.0 N MEAN CELL HGB CONCETRATION (test code = MCHC) 30.5 gram/dL 33.0-36. 0 L RED CELL DISTRIBUTION WIDTH (test code = RDW) 20.8 % 11.6-16. 2 H RED CELL DISTRIBUTION WIDTH SD (test code = RDW-SD) 68.3 fL 37 .0-51.0 H PLATELET COUNT (test code = PLT) 181 K/mm3 150-450 N MEAN PLATELET VOLUME (test code = MPV) 14.0 fL 6.7-11.0 H IMMATURE GRANULOCYTE % (test code = IG%) 0.7 % 0.0-5.0 N NUCLEATED RBC % (test code = NRBC%) 0.1 % 0-0 H NEUTROPHIL # (test code = NT#) 19.70 K/mm3 1.8-7.7 H IMMATURE GRANULOCYTE # (test code = IG#) 0.16 x10 3/uL 0-0.03 H LYMPHOCYTE # (test code = LY#) 0.73 K/mm3 1.0-5.0 L MONOCYTE # (test code = MO#) 1.75 K/mm3 0-0.8 H EOSINOPHIL # (test code = EO#) 0.00 K/mm3 0.0-0.5 N BASOPHIL # (test code = BA#) 0.03 K/mm3 0.0-0.2 N NUCLEATED RBC # (test code = NRBC#) 0.02 K/mm3 0.0-0.1 N MANUAL DIFF REQUIRED (test code = MDIFF) YES STAIN ACCEPTABILITY (test code = STN ACCEPTABLE) TOTAL CELLS COUNTED (test code = TCC) #CELLS SEGMENTED NEUTROPHILS (test code = SEG) % 39-69 LYMPHOCYTE (test code = LYMPH) % 25-55 MONOCYTE (test code = MON) % 0-10 EOSINOPHIL (test code = EOS) % 0.0-5.0 CABOT RINGS (test code = CAB) MORPHOLOGY COMMENT (test code = MOC) PLATELET ESTIMATE (test code = PLTEST) PLATELET MORPHOLOGY (test code = PLTMORPH) CBC W/MANUAL [id number] 14:22:00* Test Item Value Reference Range Interpretation Comments WHITE BLOOD CELL (test code = WBC) 22.4 K/mm3 4.5-12.5 H RED BLOOD CELL (test code = RBC) 2.71 mill/mm3 3.7-5.2 L HEMOGLOBIN (test code = HGB) 7.6 gram/dL 11.5-15.5 L HEMATOCRIT (test code = HCT) 24.9 % 36.0-46.0 L MEAN CELL VOLUME (test code = MCV) 91.9 fL 80-98 N MEAN CELL HGB (test code = MCH) 28.0 picogram 27.0-33.0 N MEAN CELL HGB CONCETRATION (test code = MCHC) 30.5 gram/dL 33.0-36. 0 L RED CELL DISTRIBUTION WIDTH (test code = RDW) 20.8 % 11.6-16. 2 H RED CELL DISTRIBUTION WIDTH SD (test code = RDW-SD) 68.3 fL 37 .0-51.0 H PLATELET COUNT (test code = PLT) 181 K/mm3 150-450 N MEAN PLATELET VOLUME (test code = MPV) 14.0 fL 6.7-11.0 H IMMATURE GRANULOCYTE % (test code = IG%) 0.7 % 0.0-5.0 N NUCLEATED RBC % (test code = NRBC%) 0.1 % 0-0 H NEUTROPHIL # (test code = NT#) 19.70 K/mm3 1.8-7.7 H IMMATURE GRANULOCYTE # (test code = IG#) 0.16 x10 3/uL 0-0.03 H LYMPHOCYTE # (test code = LY#) 0.73 K/mm3 1.0-5.0 L MONOCYTE # (test code = MO#) 1.75 K/mm3 0-0.8 H EOSINOPHIL # (test code = EO#) 0.00 K/mm3 0.0-0.5 N BASOPHIL # (test code = BA#) 0.03 K/mm3 0.0-0.2 N NUCLEATED RBC # (test code = NRBC#) 0.02 K/mm3 0.0-0.1 N MANUAL DIFF REQUIRED (test code = MDIFF) YES STAIN ACCEPTABILITY (test code = STN ACCEPTABLE) TOTAL CELLS COUNTED (test code = TCC) #CELLS SEGMENTED NEUTROPHILS (test code = SEG) % 39-69 LYMPHOCYTE (test code = LYMPH) % 25-55 MONOCYTE (test code = MON) % 0-10 EOSINOPHIL (test code = EOS) % 0.0-5.0 CABOT RINGS (test code = CAB) MORPHOLOGY COMMENT (test code = MOC) PLATELET ESTIMATE (test code = PLTEST) PLATELET MORPHOLOGY (test code = PLTMORPH) ARTERIAL BLOOD [id number] 11:10:00* Test Item Value Reference Range Interpretation Comments ARTERIAL BLOOD GAS PH (test code = PHA) 7.34 7.35-7.45 L ARTERIAL BLOOD GAS PCO2 (test code = PCO2A) 65.5 mm Hg 35-45 HH Results called to and read back by dr Hensley 09/19/2019; by marsha ARTERIAL BLOOD GAS PO2 (test code = PO2A) 111.0 mmHg 80-100 H BICARBONATE TOTAL HCO3 (test code = HCO3) 34.5 mmol/L 23.0-27.0 H BASE EXCESS (test code = TONIA) 7.4 mmol/L -3.0-5.0 HH Results called to and read back by dr Hensley 09/19/2019; by marsha ABG O2 SATURATION (test code = SATA) 97.5 % 90.0-98.0 N ABG TYPE (test code = TYPEA) Arterial FIO2 (test code = FIO2A) 80.0 ABG VENT RESP RATE (test code = RRA) 16.0 per min ABG TIDAL VOLUME (test code = TVA) 450.0 mL ABG PEEP (test code = PEEPA) 10.0 cmH2O ABG SITE (test code = SITEA) Rt BRACHIAL ARTERY MODIFIED ALLENS (test code = MODALL) Unable CHECK PERFORMED HEMATOCRIT (test code = HCT/ABG) 25 % 35-47 L TOTAL HGB (test code = THB) 8.6 gram/dL 11.5-15.5 L HGB O2 SAT (test code = HBOSAT) 96.5 % 94.00-98.00 N CARBOXYHEMOGLOBIN (test code = HOHGBT) 0.3 %totalHg 0.5-1.5 LL Results called to and read back by dr Hensley 09/19/2019; by marsha METHEMOGLOBIN (test code = METHGB) 0.7 % 0.0-1.50 N O2 CONTENT (test code = O2CT) 11.9 % vol 18.0-22.0 L [id number] 10:18:00* Test Item Value Reference Range Interpretation Comments GLUBED (test code = GLUBED) 331 mg/dL 74-106 H Performed by certified carousel operator at [facility] - XR CHEST 1 [id number] 06:26:00 FAX: Josh Roldan MD [phone] [place]: St: ADM FAX: Sarah Del Rosario NP [phone] FAX: Kevin Bass MD [phone] Name: DAYANA RICHARDSON [facility] : 1960 Age/S: 59/F [address] Unit #: [id number] Loc: [address] [address] Phys: Sarah Del Rosario NP Acct: [id number] Dis Date: Status: ADM IN PH ONE #: [phone] Exam Date: 09/19/2019 0430 FAX #: [phone] Reason: COPD, hypoxia EXAMS: CPT CODE: [id number] XR CHEST 1 V 99000 CLINICAL HISTO RY: COPD, hypoxia TECHNIQUE: AP chest x-ray COMPARIS ON: Previous day. IMPRESSION: Improved patchy left lung consolidation. Pulmonary hyperinflation, suggesting COPD. Biba silar subsegmental atelectasis. No pleural effusion. Normal heart size. ET and NG tubes. LOCATION: at 0626 Reported and signed by: Steph Gray D.O. CC: Josh Roldan MD; Sarah Del Rosario NP; Kevin Veronica MD Technologist: RT CARLOS ENRIQUE(R) Trnscrd Date/Time/By: 09/19/2019 ( 06) : By: [email or web address] Orig Print D/T: S: 09/19/2019 ([id number]) PAGE 1 Signed Report CBC W/MANUAL [id number] 02:49:00* Test Item Value Reference Range Interpretation Comments WHITE BLOOD CELL (test code = WBC) 22.3 K/mm3 4.5-12.5 H RED BLOOD CELL (test code = RBC) 2.62 mill/mm3 3.7-5.2 L HEMOGLOBIN (test code = HGB) 7.2 gram/dL 11.5-15.5 L RESULT VERIFIED BY REPEAT ANALYSIS HEMATOCRIT (test code = HCT) 23.8 % 36.0-46.0 L MEAN CELL VOLUME (test code = MCV) 90.8 fL 80-98 N MEAN CELL HGB (test code = MCH) 27.5 picogram 27.0-33.0 N MEAN CELL HGB CONCETRATION (test code = MCHC) 30.3 gram/dL 33.0-36. 0 L RED CELL DISTRIBUTION WIDTH (test code = RDW) 20.8 % 11.6-16. 2 H RED CELL DISTRIBUTION WIDTH SD (test code = RDW-SD) 68.3 fL 37 .0-51.0 H PLATELET COUNT (test code = PLT) 169 K/mm3 150-450 RESULT VERIFIED BY REPEAT ANALYSIS MEAN PLATELET VOLUME (test code = MPV) 14.0 fL 6.7-11.0 H IMMATURE GRANULOCYTE % (test code = IG%) 0.4 % 0.0-5.0 N NUCLEATED RBC % (test code = NRBC%) 0.0 % 0-0 N NEUTROPHIL # (test code = NT#) 20.07 K/mm3 1.8-7.7 H IMMATURE GRANULOCYTE # (test code = IG#) 0.09 x10 3/uL 0-0.03 H LYMPHOCYTE # (test code = LY#) 0.45 K/mm3 1.0-5.0 L MONOCYTE # (test code = MO#) 1.63 K/mm3 0-0.8 H EOSINOPHIL # (test code = EO#) 0.00 K/mm3 0.0-0.5 N BASOPHIL # (test code = BA#) 0.04 K/mm3 0.0-0.2 N NUCLEATED RBC # (test code = NRBC#) 0.00 K/mm3 0.0-0.1 N MANUAL DIFF REQUIRED (test code = MDIFF) YES STAIN ACCEPTABILITY (test code = STN ACCEPTABLE) STAIN ACCEPTABLE TOTAL CELLS COUNTED (test code = TCC) 114 #CELLS SEGMENTED NEUTROPHILS (test code = SEG) 91.2 % 39-69 H BAND NEUTROPHIL (test code = BAND) 2.6 % 0-10 N LYMPHOCYTE (test code = LYMPH) 1.8 % 25-55 L REACTIVE LYMPH (test code = RELYMPH) 0 % MONOCYTE (test code = MON) 4.4 % 0-10 N EOSINOPHIL (test code = EOS) 0 % 0.0-5.0 N BASOPHIL (test code = BASO) 0 % 0-1.0 N METAMYELOCYTE (test code = META) 0 % 0-0 N MYELOCYTE (test code = MYELO) 0 % 0.0-0.0 N PROMYELOCYTE (test code = PROM) 0 % 0-0 N HYPOCHROMIA (test code = HYPO) 2+ ANISOCYTOSIS (test code = ANISO) 1+ MICROCYTOSIS (test code = MICR) 1+ PLATELET ESTIMATE (test code = PLTEST) ADEQUATE PLATELET MORPHOLOGY (test code = PLTMORPH) NORMAL IMMATURE FORMS (test code = IMMAT) 0 % 0-0 N REDRAW OF [id number] W/MANUAL [id number] 01:57:00* Test Item Value Reference Range Interpretation Comments WHITE BLOOD CELL (test code = WBC) 22.3 K/mm3 4.5-12.5 H RED BLOOD CELL (test code = RBC) 2.62 mill/mm3 3.7-5.2 L HEMOGLOBIN (test code = HGB) 7.2 gram/dL 11.5-15.5 L RESULT VERIFIED BY REPEAT ANALYSIS HEMATOCRIT (test code = HCT) 23.8 % 36.0-46.0 L MEAN CELL VOLUME (test code = MCV) 90.8 fL 80-98 N MEAN CELL HGB (test code = MCH) 27.5 picogram 27.0-33.0 N MEAN CELL HGB CONCETRATION (test code = MCHC) 30.3 gram/dL 33.0-36. 0 L RED CELL DISTRIBUTION WIDTH (test code = RDW) 20.8 % 11.6-16. 2 H RED CELL DISTRIBUTION WIDTH SD (test code = RDW-SD) 68.3 fL 37 .0-51.0 H PLATELET COUNT (test code = PLT) 169 K/mm3 150-450 RESULT VERIFIED BY REPEAT ANALYSIS MEAN PLATELET VOLUME (test code = MPV) 14.0 fL 6.7-11.0 H IMMATURE GRANULOCYTE % (test code = IG%) 0.4 % 0.0-5.0 N NUCLEATED RBC % (test code = NRBC%) 0.0 % 0-0 N NEUTROPHIL # (test code = NT#) 20.07 K/mm3 1.8-7.7 H IMMATURE GRANULOCYTE # (test code = IG#) 0.09 x10 3/uL 0-0.03 H LYMPHOCYTE # (test code = LY#) 0.45 K/mm3 1.0-5.0 L MONOCYTE # (test code = MO#) 1.63 K/mm3 0-0.8 H EOSINOPHIL # (test code = EO#) 0.00 K/mm3 0.0-0.5 N BASOPHIL # (test code = BA#) 0.04 K/mm3 0.0-0.2 N NUCLEATED RBC # (test code = NRBC#) 0.00 K/mm3 0.0-0.1 N MANUAL DIFF REQUIRED (test code = MDIFF) YES STAIN ACCEPTABILITY (test code = STN ACCEPTABLE) TOTAL CELLS COUNTED (test code = TCC) #CELLS SEGMENTED NEUTROPHILS (test code = SEG) % 39-69 LYMPHOCYTE (test code = LYMPH) % 25-55 MONOCYTE (test code = MON) % 0-10 EOSINOPHIL (test code = EOS) % 0.0-5.0 CABOT RINGS (test code = CAB) MORPHOLOGY COMMENT (test code = MOC) PLATELET ESTIMATE (test code = PLTEST) PLATELET MORPHOLOGY (test code = PLTMORPH) REDRAW OF [id number] W/MANUAL [id number] 01:57:00* Test Item Value Reference Range Interpretation Comments WHITE BLOOD CELL (test code = WBC) 22.3 K/mm3 4.5-12.5 H RED BLOOD CELL (test code = RBC) 2.62 mill/mm3 3.7-5.2 L HEMOGLOBIN (test code = HGB) 7.2 gram/dL 11.5-15.5 L RESULT VERIFIED BY REPEAT ANALYSIS HEMATOCRIT (test code = HCT) 23.8 % 36.0-46.0 L MEAN CELL VOLUME (test code = MCV) 90.8 fL 80-98 N MEAN CELL HGB (test code = MCH) 27.5 picogram 27.0-33.0 N MEAN CELL HGB CONCETRATION (test code = MCHC) 30.3 gram/dL 33.0-36. 0 L RED CELL DISTRIBUTION WIDTH (test code = RDW) 20.8 % 11.6-16. 2 H RED CELL DISTRIBUTION WIDTH SD (test code = RDW-SD) 68.3 fL 37 .0-51.0 H PLATELET COUNT (test code = PLT) 169 K/mm3 150-450 RESULT VERIFIED BY REPEAT ANALYSIS MEAN PLATELET VOLUME (test code = MPV) 14.0 fL 6.7-11.0 H IMMATURE GRANULOCYTE % (test code = IG%) 0.4 % 0.0-5.0 N NUCLEATED RBC % (test code = NRBC%) 0.0 % 0-0 N NEUTROPHIL # (test code = NT#) 20.07 K/mm3 1.8-7.7 H IMMATURE GRANULOCYTE # (test code = IG#) 0.09 x10 3/uL 0-0.03 H LYMPHOCYTE # (test code = LY#) 0.45 K/mm3 1.0-5.0 L MONOCYTE # (test code = MO#) 1.63 K/mm3 0-0.8 H EOSINOPHIL # (test code = EO#) 0.00 K/mm3 0.0-0.5 N BASOPHIL # (test code = BA#) 0.04 K/mm3 0.0-0.2 N NUCLEATED RBC # (test code = NRBC#) 0.00 K/mm3 0.0-0.1 N MANUAL DIFF REQUIRED (test code = MDIFF) YES STAIN ACCEPTABILITY (test code = STN ACCEPTABLE) TOTAL CELLS COUNTED (test code = TCC) #CELLS SEGMENTED NEUTROPHILS (test code = SEG) % 39-69 LYMPHOCYTE (test code = LYMPH) % 25-55 MONOCYTE (test code = MON) % 0-10 EOSINOPHIL (test code = EOS) % 0.0-5.0 CABOT RINGS (test code = CAB) MORPHOLOGY COMMENT (test code = MOC) PLATELET ESTIMATE (test code = PLTEST) PLATELET MORPHOLOGY (test code = PLTMORPH) REDRAW OF [id number] W/MANUAL [id number] 01:57:00* Test Item Value Reference Range Interpretation Comments WHITE BLOOD CELL (test code = WBC) 22.3 K/mm3 4.5-12.5 H RED BLOOD CELL (test code = RBC) 2.62 mill/mm3 3.7-5.2 L HEMOGLOBIN (test code = HGB) 7.2 gram/dL 11.5-15.5 L RESULT VERIFIED BY REPEAT ANALYSIS HEMATOCRIT (test code = HCT) 23.8 % 36.0-46.0 L MEAN CELL VOLUME (test code = MCV) 90.8 fL 80-98 N MEAN CELL HGB (test code = MCH) 27.5 picogram 27.0-33.0 N MEAN CELL HGB CONCETRATION (test code = MCHC) 30.3 gram/dL 33.0-36. 0 L RED CELL DISTRIBUTION WIDTH (test code = RDW) 20.8 % 11.6-16. 2 H RED CELL DISTRIBUTION WIDTH SD (test code = RDW-SD) 68.3 fL 37 .0-51.0 H PLATELET COUNT (test code = PLT) 169 K/mm3 150-450 RESULT VERIFIED BY REPEAT ANALYSIS MEAN PLATELET VOLUME (test code = MPV) 14.0 fL 6.7-11.0 H IMMATURE GRANULOCYTE % (test code = IG%) 0.4 % 0.0-5.0 N NUCLEATED RBC % (test code = NRBC%) 0.0 % 0-0 N NEUTROPHIL # (test code = NT#) 20.07 K/mm3 1.8-7.7 H IMMATURE GRANULOCYTE # (test code = IG#) 0.09 x10 3/uL 0-0.03 H LYMPHOCYTE # (test code = LY#) 0.45 K/mm3 1.0-5.0 L MONOCYTE # (test code = MO#) 1.63 K/mm3 0-0.8 H EOSINOPHIL # (test code = EO#) 0.00 K/mm3 0.0-0.5 N BASOPHIL # (test code = BA#) 0.04 K/mm3 0.0-0.2 N NUCLEATED RBC # (test code = NRBC#) 0.00 K/mm3 0.0-0.1 N MANUAL DIFF REQUIRED (test code = MDIFF) YES STAIN ACCEPTABILITY (test code = STN ACCEPTABLE) TOTAL CELLS COUNTED (test code = TCC) #CELLS SEGMENTED NEUTROPHILS (test code = SEG) % 39-69 LYMPHOCYTE (test code = LYMPH) % 25-55 MONOCYTE (test code = MON) % 0-10 EOSINOPHIL (test code = EOS) % 0.0-5.0 MORPHOLOGY COMMENT (test code = MOC) PLATELET ESTIMATE (test code = PLTEST) PLATELET MORPHOLOGY (test code = PLTMORPH) REDRAW OF A231GMW W/MANUAL [id number] 01:57:00* Test Item Value Reference Range Interpretation Comments WHITE BLOOD CELL (test code = WBC) 22.3 K/mm3 4.5-12.5 H RED BLOOD CELL (test code = RBC) 2.62 mill/mm3 3.7-5.2 L HEMOGLOBIN (test code = HGB) 7.2 gram/dL 11.5-15.5 L RESULT VERIFIED BY REPEAT ANALYSIS HEMATOCRIT (test code = HCT) 23.8 % 36.0-46.0 L MEAN CELL VOLUME (test code = MCV) 90.8 fL 80-98 N MEAN CELL HGB (test code = MCH) 27.5 picogram 27.0-33.0 N MEAN CELL HGB CONCETRATION (test code = MCHC) 30.3 gram/dL 33.0-36. 0 L RED CELL DISTRIBUTION WIDTH (test code = RDW) 20.8 % 11.6-16. 2 H RED CELL DISTRIBUTION WIDTH SD (test code = RDW-SD) 68.3 fL 37 .0-51.0 H PLATELET COUNT (test code = PLT) 169 K/mm3 150-450 RESULT VERIFIED BY REPEAT ANALYSIS MEAN PLATELET VOLUME (test code = MPV) 14.0 fL 6.7-11.0 H IMMATURE GRANULOCYTE % (test code = IG%) 0.4 % 0.0-5.0 N NUCLEATED RBC % (test code = NRBC%) 0.0 % 0-0 N NEUTROPHIL # (test code = NT#) 20.07 K/mm3 1.8-7.7 H IMMATURE GRANULOCYTE # (test code = IG#) 0.09 x10 3/uL 0-0.03 H LYMPHOCYTE # (test code = LY#) 0.45 K/mm3 1.0-5.0 L MONOCYTE # (test code = MO#) 1.63 K/mm3 0-0.8 H EOSINOPHIL # (test code = EO#) 0.00 K/mm3 0.0-0.5 N BASOPHIL # (test code = BA#) 0.04 K/mm3 0.0-0.2 N NUCLEATED RBC # (test code = NRBC#) 0.00 K/mm3 0.0-0.1 N MANUAL DIFF REQUIRED (test code = MDIFF) YES STAIN ACCEPTABILITY (test code = STN ACCEPTABLE) TOTAL CELLS COUNTED (test code = TCC) #CELLS SEGMENTED NEUTROPHILS (test code = SEG) % 39-69 LYMPHOCYTE (test code = LYMPH) % 25-55 MONOCYTE (test code = MON) % 0-10 MORPHOLOGY COMMENT (test code = MOC) PLATELET ESTIMATE (test code = PLTEST) PLATELET MORPHOLOGY (test code = PLTMORPH) REDRAW OF [address] W/MANUAL [id number] 01:57:00* Test Item Value Reference Range Interpretation Comments WHITE BLOOD CELL (test code = WBC) 22.3 K/mm3 4.5-12.5 H RED BLOOD CELL (test code = RBC) 2.62 mill/mm3 3.7-5.2 L HEMOGLOBIN (test code = HGB) 7.2 gram/dL 11.5-15.5 L RESULT VERIFIED BY REPEAT ANALYSIS HEMATOCRIT (test code = HCT) 23.8 % 36.0-46.0 L MEAN CELL VOLUME (test code = MCV) 90.8 fL 80-98 N MEAN CELL HGB (test code = MCH) 27.5 picogram 27.0-33.0 N MEAN CELL HGB CONCETRATION (test code = MCHC) 30.3 gram/dL 33.0-36. 0 L RED CELL DISTRIBUTION WIDTH (test code = RDW) 20.8 % 11.6-16. 2 H RED CELL DISTRIBUTION WIDTH SD (test code = RDW-SD) 68.3 fL 37 .0-51.0 H PLATELET COUNT (test code = PLT) 169 K/mm3 150-450 RESULT VERIFIED BY REPEAT ANALYSIS MEAN PLATELET VOLUME (test code = MPV) 14.0 fL 6.7-11.0 H IMMATURE GRANULOCYTE % (test code = IG%) 0.4 % 0.0-5.0 N NUCLEATED RBC % (test code = NRBC%) 0.0 % 0-0 N NEUTROPHIL # (test code = NT#) 20.07 K/mm3 1.8-7.7 H IMMATURE GRANULOCYTE # (test code = IG#) 0.09 x10 3/uL 0-0.03 H LYMPHOCYTE # (test code = LY#) 0.45 K/mm3 1.0-5.0 L MONOCYTE # (test code = MO#) 1.63 K/mm3 0-0.8 H EOSINOPHIL # (test code = EO#) 0.00 K/mm3 0.0-0.5 N BASOPHIL # (test code = BA#) 0.04 K/mm3 0.0-0.2 N NUCLEATED RBC # (test code = NRBC#) 0.00 K/mm3 0.0-0.1 N MANUAL DIFF REQUIRED (test code = MDIFF) YES STAIN ACCEPTABILITY (test code = STN ACCEPTABLE) TOTAL CELLS COUNTED (test code = TCC) #CELLS SEGMENTED NEUTROPHILS (test code = SEG) % 39-69 LYMPHOCYTE (test code = LYMPH) % 25-55 MONOCYTE (test code = MON) % 0-10 EOSINOPHIL (test code = EOS) % 0.0-5.0 CABOT RINGS (test code = CAB) MORPHOLOGY COMMENT (test code = MOC) PLATELET ESTIMATE (test code = PLTEST) PLATELET MORPHOLOGY (test code = PLTMORPH) REDRAW OF [address] METABOLIC [id number] 01:32:00* Test Item Value Reference Range Interpretation Comments SODIUM (test code = NA) 139 mmol/L 136-145 N POTASSIUM (test code = K) 5.4 mmol/L 3.5-5.1 H CHLORIDE (test code = CL) 103.0 mmol/L 98-107 N CARBON DIOXIDE (test code = CO2) 29.0 mmol/L 21-32 N ANION GAP (test code = GAP) 12.4 10-20 N GLUCOSE (test code = GLU) 304 mg/dL 74-106 H BLOOD UREA NITROGEN (test code = BUN) 62 mg/dL 7-18 H GLOMERULAR FILTRATION RATE (test code = GFR) 42 mL/min >=60 Estimated GFR by using Modified MDRD formula.Chronic kidney disease is defined as either kidney damageor GFR <60 mL/min/1.73 m2 for >3 months. CREATININE (test code = CREAT) 1.30 mg/dL 0.55-1.02 H Note change in reference range due to change in reagent. BUN/CREATININE RATIO (test code = BUN/CREA) 47.7 10-20 H CALCIUM (test code = CA) 9.3 mg/dL 8.5-10.1 N [id number] 01:32:00* Test Item Value Reference Range Interpretation Comments PHOSPHORUS (test code = PHOS) 3.2 mg/dL 2.5-4.9 N [id number] 01:32:00* Test Item Value Reference Range Interpretation Comments MAGNESIUM (test code = MAG) 1.9 mg/dL 1.8-2.4 N BASIC METABOLIC [id number] 01:15:00* Test Item Value Reference Range Interpretation Comments SODIUM (test code = NA) 139 mmol/L 136-145 N POTASSIUM (test code = K) 5.4 mmol/L 3.5-5.1 H CHLORIDE (test code = CL) 103.0 mmol/L 98-107 N CARBON DIOXIDE (test code = CO2) mmol/L 21-32 ANION GAP (test code = GAP) 10-20 GLUCOSE (test code = GLU) mg/dL 74-106 BLOOD UREA NITROGEN (test code = BUN) mg/dL 7-18 GLOMERULAR FILTRATION RATE (test code = GFR) mL/min >=60 CREATININE (test code = CREAT) mg/dL 0.55-1.02 BUN/CREATININE RATIO (test code = BUN/CREA) 10-20 CALCIUM (test code = CA) mg/dL 8.5-10.1 [id number] 01:15:00* Test Item Value Reference Range Interpretation Comments PHOSPHORUS (test code = PHOS) mg/dL 2.5-4.9 [id number] 01:15:00* Test Item Value Reference Range Interpretation Comments MAGNESIUM (test code = MAG) mg/dL 1.8-2.4 [id number] 20:31:00* Test Item Value Reference Range Interpretation Comments GLUBED (test code = GLUBED) 258 mg/dL 74-106 H Performed by certified carousel operator at [facility] [id number] 16:33:00* Test Item Value Reference Range Interpretation Comments GLUBED (test code = GLUBED) 235 mg/dL 74-106 H Performed by certified carousel operator at [facility] [id number] 10:50:00* Test Item Value Reference Range Interpretation Comments GLUBED (test code = GLUBED) 185 mg/dL 74-106 H Performed by certified carousel operator at [facility] ARTERIAL BLOOD [id number] 10:23:00* Test Item Value Reference Range Interpretation Comments ARTERIAL BLOOD GAS PH (test code = PHA) 7.36 7.35-7.45 N ARTERIAL BLOOD GAS PCO2 (test code = PCO2A) 64.3 mm Hg 35-45 H ARTERIAL BLOOD GAS PO2 (test code = PO2A) 54.2 mmHg 80-100 L BICARBONATE TOTAL HCO3 (test code = HCO3) 35.7 mmol/L 23.0-27.0 HH Results called to and read back by dr Hensley 09/18/2019; by marsha BASE EXCESS (test code = TONIA) 8.5 mmol/L -3.0-5.0 HH Results called to and read back by dr Hensley 09/18/2019; by marsha ABG O2 SATURATION (test code = SATA) 85.7 % 90.0-98.0 L ABG TYPE (test code = TYPEA) Arterial FIO2 (test code = FIO2A) 80.0 ABG VENT MODE (test code = MODEA) Assist Control ABG VENT RESP RATE (test code = RRA) 16.0 per min ABG TIDAL VOLUME (test code = TVA) 450.0 mL ABG PEEP (test code = PEEPA) 10.0 cmH2O ABG SITE (test code = SITEA) Rt RADIAL ARTERY MODIFIED ALLENS (test code = MODALL) Yes CHECK PERFORMED HEMATOCRIT (test code = HCT/ABG) 31 % 35-47 L TOTAL HGB (test code = THB) 10.6 gram/dL 11.5-15.5 L HGB O2 SAT (test code = HBOSAT) 85.0 % 94.00-98.00 L CARBOXYHEMOGLOBIN (test code = HOHGBT) 0.3 %totalHg 0.5-1.5 LL Results called to and read back by dr Hensley 09/18/2019; by marsha METHEMOGLOBIN (test code = METHGB) 0.5 % 0.0-1.50 N O2 CONTENT (test code = O2CT) 12.7 % vol 18.0-22.0 L - XR CHEST 1 [id number] 05:25:00 FAX: Josh Roldan MD [phone] [place]: B St: ADM FAX: Sarah Del Rosario NP [phone] FAX: Y Kevin Veronica MD [phone] Name: DAYANA RICHARDSON [facility] : 1960 Age/S: 59/F [address] Unit #: [id number] Loc: [place] [address] Phys: Sarah Del Rosario INFECTIOUS DISEASES PHYSICIAN Acct: [id number] Dis Date: Status: ADM IN PH ONE #: [phone] Exam Date: 09/18/2019 0551 FAX #: [phone] Reason: COPD, hypoxia EXAMS: CPT CODE: [id number] XR CHEST 1 V 82067 EXAM: XR Chest 1 View INDICATION: COPD, hypoxia LOCATION CODE: R 1 6 COMPARISON: Chest radiograph dated 09/17/2019 TECHN IQUE: Frontal view of the chest was obtained. FINDINGS: Life support lines and tubes are in unchanged position. There is inc reasing consolidative opacities in the left lung. There is no pleural eff usion or pneumothorax. The cardiomediastinal silhouette is unchanged. No acute osseous abnormality is identified. IMPRESSION: In creasing consolidative opacities in the left lung concerning for worseni ng pneumonia. at 0525 Reported and signed by: Taniya Hicks CC: Josh Roldan MD; Sarah Del Rosario INFECTIOUS DISEASES PHYSICIAN; Kevin Veronica MD Anne hnologist: KEVIN BRAVO, RT(R) Trnscrd Date/T isaac/By: 09/18/2019 (05) : By: [email or web address] Orig Print D/T: S: 0 (2928) PAGE 1 Signed Report [id number] 03:05:00* Test Item Value Reference Range Interpretation Comments PHOSPHORUS (test code = PHOS) 3.4 mg/dL 2.5-4.9 N BASIC METABOLIC [id number] 02:20:00* Test Item Value Reference Range Interpretation Comments SODIUM (test code = NA) 140 mmol/L 136-145 N POTASSIUM (test code = K) 5.2 mmol/L 3.5-5.1 H CHLORIDE (test code = CL) 104.0 mmol/L 98-107 N CARBON DIOXIDE (test code = CO2) 33.0 mmol/L 21-32 H ANION GAP (test code = GAP) 8.2 10-20 L GLUCOSE (test code = GLU) 312 mg/dL 74-106 H BLOOD UREA NITROGEN (test code = BUN) 42 mg/dL 7-18 H GLOMERULAR FILTRATION RATE (test code = GFR) 42 mL/min >=60 Estimated GFR by using Modified MDRD formula.Chronic kidney disease is defined as either kidney damageor GFR <60 mL/min/1.73 m2 for >3 months. CREATININE (test code = CREAT) 1.30 mg/dL 0.55-1.02 H Note change in reference range due to change in reagent. BUN/CREATININE RATIO (test code = BUN/CREA) 32.3 10-20 H CALCIUM (test code = CA) 9.0 mg/dL 8.5-10.1 N [id number] 02:20:00* Test Item Value Reference Range Interpretation Comments MAGNESIUM (test code = MAG) 1.9 mg/dL 1.8-2.4 N CBC W/O [id number] 02:01:00* Test Item Value Reference Range Interpretation Comments WHITE BLOOD CELL (test code = WBC) 36.2 K/mm3 4.5-12.5 H RESULT VERIFIED BY REPEAT ANALYSIS RED BLOOD CELL (test code = RBC) 3.33 mill/mm3 3.7-5.2 L HEMOGLOBIN (test code = HGB) 9.2 gram/dL 11.5-15.5 L HEMATOCRIT (test code = HCT) 30.2 % 36.0-46.0 L MEAN CELL VOLUME (test code = MCV) 90.7 fL 80-98 N MEAN CELL HGB (test code = MCH) 27.6 picogram 27.0-33.0 N MEAN CELL HGB CONCETRATION (test code = MCHC) 30.5 gram/dL 33.0-36. 0 L RED CELL DISTRIBUTION WIDTH (test code = RDW) 20.6 % 11.6-16. 2 H PLATELET COUNT (test code = PLT) 278 K/mm3 150-450 N MEAN PLATELET VOLUME (test code = MPV) 13.7 fL 6.7-11.0 H [id number] 21:08:00* Test Item Value Reference Range Interpretation Comments GLUBED (test code = GLUBED) 202 mg/dL 74-106 H Performed by certified carousel operator at [facility] ARTERIAL BLOOD [id number] 17:12:00* Test Item Value Reference Range Interpretation Comments ARTERIAL BLOOD GAS PH (test code = PHA) 7.47 7.35-7.45 H ARTERIAL BLOOD GAS PCO2 (test code = PCO2A) 43.8 mm Hg 35-45 N ARTERIAL BLOOD GAS PO2 (test code = PO2A) 51.8 mmHg 80-100 L BICARBONATE TOTAL HCO3 (test code = HCO3) 31.3 mmol/L 23.0-27.0 H BASE EXCESS (test code = TONIA) 6.9 mmol/L -3.0-5.0 HH Results called to and read back by jazmínmat 17:00 - 09/17/2019; by desire ABG O2 SATURATION (test code = SATA) 87.8 % 90.0-98.0 L ABG TYPE (test code = TYPEA) Arterial FIO2 (test code = FIO2A) 100.0 ABG VENT MODE (test code = MODEA) Assist Control ABG VENT RESP RATE (test code = RRA) 16.0 per min ABG TIDAL VOLUME (test code = TVA) 450.0 mL ABG PEEP (test code = PEEPA) 10.0 cmH2O ABG SITE (test code = SITEA) Lt RADIAL ARTERY MODIFIED ALLENS (test code = MODALL) Unable CHECK PERFORMED SODIUM (test code = NA/ABG) 138.8 mEq/L 135-148 N POTASSIUM (test code = K/ABG) 4.9 mEq/L 3.5-4.5 H CHLORIDE (test code = CL/ABG) 103 mEq/L 98-106 N GLUCOSE (test code = GLU/ABG) 242 mg/dL 74-99 H HEMATOCRIT (test code = HCT/ABG) 34 % 35-47 L IONIZED CALCIUM (test code = CAIABG) 1.23 mmol/L 1.1-1.37 N TOTAL HGB (test code = THB) 11.6 gram/dL 11.5-15.5 N HGB O2 SAT (test code = HBOSAT) 87.0 % 94.00-98.00 L CARBOXYHEMOGLOBIN (test code = HOHGBT) 0.6 %totalHg 0.5-1.5 N METHEMOGLOBIN (test code = METHGB) 0.3 % 0.0-1.50 N O2 CONTENT (test code = O2CT) 14.2 % vol 18.0-22.0 L [id number] 16:07:00* Test Item Value Reference Range Interpretation Comments GLUBED (test code = GLUBED) 239 mg/dL 74-106 H Performed by certified carousel operator at [facility] - XR CHEST 1 [id number] 15:29:00 FAX: Anushka Benton NP [phone] [place]: St: ADM FAX: Josh Roldan MD [phone] FAX: Kevin Bass MD [phone] Name: DAYAAN RICHARDSON [facility] : 1960 Age/S: 59/F [address] [facility]: [id number] Loc: [address] [place] [address] Phys: Anushka Benton NP Acct: [id number] Dis Date: Status: ADM IN ONE #: [phone] Exam Date: 09/17/2019 1514 FAX #: [phone] Reason: POST INTUBATION EXAMS: CPT CODE: [id number] XR CHEST 1 V 28043 EXAM: Chest x- ray, one view; INFORMATION: Respiratory failure; post intubation; IMPRESSION: 1. Well-positioned endotracheal tube; its t ip is 2.5 cm above the [place]. 2. Deterioration with evolving i nfiltrative changes in the left upper lobe probably representing edema. 3. Persistent patchy infiltrative changes in the left lower lobe and to a lesser degree in the right lower lobe. 4. The heart is marty l in size. Location code: GW Electronical ly Signed by Margaret Laguna on 09/17/2019 at 1 529 Reported and signed by: Clif Laguna M.D. CC: Anushka Benton NP; Josh Roldan MD; Eder Veronica MD Technologist: Rodrigue KAMARA(R) Barbara scrd Date/Time/By: 09/17/2019 (1528) : By: [email or web address] Orig Print D/T: S : 09/17/2019 (6638) PAGE 1 Signed Report [id number] 10:56:00* Test Item Value Reference Range Interpretation Comments GLUBED (test code = GLUBED) 96 mg/dL 74-106 N Performed by certified carousel operator at [facility] - XR CHEST 1 [id number] 04:23:00 FAX: Josh Roldan MD [phone] [place]: St: ADM FAX: Sarah Del Rosario NP [phone] FAX: Kevin Bass MD [phone] Name: DAYANA RICHARDSON [facility] : 1960 Age/S: 59/F [facility] Unit #: [id number] Loc: [place] [address] Phys: Sarah Del Rosario NP Acct: [id number] Dis Date: Status: ADM IN ONE #: [phone] Exam Date: 09/17/2019 0400 FAX #: [phone] Reason: COPD, hypoxia EXAMS: CPT CODE: [id number] XR CHEST 1 V 20625 EXAM: XR Chest 1 View INDICATION: COPD, hypoxia LOCATION CODE: R 1 6 COMPARISON: Chest radiograph dated 09/15/2019 TECHN IQUE: Frontal view of the chest was obtained. FINDINGS: Esophagogastric tube is in unchanged placement. There is a new focal opacity at the left lung base with possible small left pleural effusion. There is no right pleural effusion. There is no pneumothorax. The cardi omediastinal silhouette is unchanged. No acute osseous abnormality is vitaly ntified. IMPRESSION: New focal opacity at the right lung base representing pneumonia versus atelectasis with or without small le ft pleural effusion. Electronically Kimberly d by Taniya Mendez M.D. on 09/17/2019 at 042 3 Reported and signed by: Taniya harp M.D. CC: Josh Roldan MD; Sarah Del Rosario NP; Kevin Veronica MD Technologist: Robert Washington RT(R); SONJA STEPHEN RT(R) Trnscrd Date/Time/By: 09/17/2019 (0423) : By: [email or web address] Orig Print D/T: S: (0426) PAGE 1 Signed Repo rt BASIC METABOLIC [id number] 01:07:00* Test Item Value Reference Range Interpretation Comments SODIUM (test code = NA) 149 mmol/L 136-145 H POTASSIUM (test code = K) 4.6 mmol/L 3.5-5.1 N CHLORIDE (test code = CL) 110.0 mmol/L 98-107 H CARBON DIOXIDE (test code = CO2) 33.0 mmol/L 21-32 H ANION GAP (test code = GAP) 10.6 10-20 N GLUCOSE (test code = GLU) 382 mg/dL 74-106 H BLOOD UREA NITROGEN (test code = BUN) 31 mg/dL 7-18 H GLOMERULAR FILTRATION RATE (test code = GFR) > 60 mL/min >=60 Estimated GFR by using Modified MDRD formula.Chronic kidney disease is defined as either kidney damageor GFR <60 mL/min/1.73 m2 for >3 months. CREATININE (test code = CREAT) 0.80 mg/dL 0.55-1.02 N Note change in reference range due to change in reagent. BUN/CREATININE RATIO (test code = BUN/CREA) 38.8 10-20 H CALCIUM (test code = CA) 8.8 mg/dL 8.5-10.1 N [id number] 01:07:00* Test Item Value Reference Range Interpretation Comments MAGNESIUM (test code = MAG) 1.7 mg/dL 1.8-2.4 L BASIC METABOLIC [id number] 01:05:00* Test Item Value Reference Range Interpretation Comments SODIUM (test code = NA) 149 mmol/L 136-145 H POTASSIUM (test code = K) 4.6 mmol/L 3.5-5.1 N CHLORIDE (test code = CL) 110.0 mmol/L 98-107 H CARBON DIOXIDE (test code = CO2) mmol/L 21-32 ANION GAP (test code = GAP) 10-20 GLUCOSE (test code = GLU) mg/dL 74-106 BLOOD UREA NITROGEN (test code = BUN) mg/dL 7-18 GLOMERULAR FILTRATION RATE (test code = GFR) mL/min >=60 CREATININE (test code = CREAT) mg/dL 0.55-1.02 BUN/CREATININE RATIO (test code = BUN/CREA) 10-20 CALCIUM (test code = CA) mg/dL 8.5-10.1 [id number] 01:05:00* Test Item Value Reference Range Interpretation Comments MAGNESIUM (test code = MAG) mg/dL 1.8-2.4 CBC W/O [id number] 01:03:00* Test Item Value Reference Range Interpretation Comments WHITE BLOOD CELL (test code = WBC) 22.6 K/mm3 4.5-12.5 H RED BLOOD CELL (test code = RBC) 3.08 mill/mm3 3.7-5.2 L HEMOGLOBIN (test code = HGB) 8.5 gram/dL 11.5-15.5 L HEMATOCRIT (test code = HCT) 27.7 % 36.0-46.0 L MEAN CELL VOLUME (test code = MCV) 89.9 fL 80-98 N MEAN CELL HGB (test code = MCH) 27.6 picogram 27.0-33.0 N MEAN CELL HGB CONCETRATION (test code = MCHC) 30.7 gram/dL 33.0-36. 0 L RED CELL DISTRIBUTION WIDTH (test code = RDW) 19.9 % 11.6-16. 2 H PLATELET COUNT (test code = PLT) 292 K/mm3 150-450 N MEAN PLATELET VOLUME (test code = MPV) 13.0 fL 6.7-11.0 H [id number] 20:43:00* Test Item Value Reference Range Interpretation Comments GLUBED (test code = GLUBED) 375 mg/dL 74-106 H Performed by certified carousel operator at [facility] [id number] 15:36:00* Test Item Value Reference Range Interpretation Comments GLUBED (test code = GLUBED) 323 mg/dL 74-106 H Performed by certified carousel operator at [facility] [id number] 10:21:00* Test Item Value Reference Range Interpretation Comments GLUBED (test code = GLUBED) 254 mg/dL 74-106 H Performed by certified carousel operator at [facility] [id number] 05:52:00* Test Item Value Reference Range Interpretation Comments GLUBED (test code = GLUBED) 265 mg/dL 74-106 H Performed by certified carousel operator at [facility] BASIC METABOLIC [id number] 03:14:00* Test Item Value Reference Range Interpretation Comments SODIUM (test code = NA) 145 mmol/L 136-145 N POTASSIUM (test code = K) 4.0 mmol/L 3.5-5.1 N CHLORIDE (test code = CL) 108.0 mmol/L 98-107 H CARBON DIOXIDE (test code = CO2) 34.0 mmol/L 21-32 H ANION GAP (test code = GAP) 7.0 10-20 L GLUCOSE (test code = GLU) 296 mg/dL 74-106 H BLOOD UREA NITROGEN (test code = BUN) 27 mg/dL 7-18 H GLOMERULAR FILTRATION RATE (test code = GFR) > 60 mL/min >=60 Estimated GFR by using Modified MDRD formula.Chronic kidney disease is defined as either kidney damageor GFR <60 mL/min/1.73 m2 for >3 months. CREATININE (test code = CREAT) 0.60 mg/dL 0.55-1.02 N Note change in reference range due to change in reagent. BUN/CREATININE RATIO (test code = BUN/CREA) 45.0 10-20 H CALCIUM (test code = CA) 9.6 mg/dL 8.5-10.1 N [id number] 03:14:00* Test Item Value Reference Range Interpretation Comments MAGNESIUM (test code = MAG) 1.6 mg/dL 1.8-2.4 L BASIC METABOLIC [id number] 03:01:00* Test Item Value Reference Range Interpretation Comments SODIUM (test code = NA) 145 mmol/L 136-145 N POTASSIUM (test code = K) 4.0 mmol/L 3.5-5.1 N CHLORIDE (test code = CL) 108.0 mmol/L 98-107 H CARBON DIOXIDE (test code = CO2) mmol/L 21-32 ANION GAP (test code = GAP) 10-20 GLUCOSE (test code = GLU) mg/dL 74-106 BLOOD UREA NITROGEN (test code = BUN) mg/dL 7-18 GLOMERULAR FILTRATION RATE (test code = GFR) mL/min >=60 CREATININE (test code = CREAT) mg/dL 0.55-1.02 BUN/CREATININE RATIO (test code = BUN/CREA) 10-20 CALCIUM (test code = CA) mg/dL 8.5-10.1 [id number] 03:01:00* Test Item Value Reference Range Interpretation Comments MAGNESIUM (test code = MAG) mg/dL 1.8-2.4 CBC W/O [id number] 02:50:00* Test Item Value Reference Range Interpretation Comments WHITE BLOOD CELL (test code = WBC) 16.9 K/mm3 4.5-12.5 H RED BLOOD CELL (test code = RBC) 3.34 mill/mm3 3.7-5.2 L HEMOGLOBIN (test code = HGB) 9.2 gram/dL 11.5-15.5 L HEMATOCRIT (test code = HCT) 30.1 % 36.0-46.0 L MEAN CELL VOLUME (test code = MCV) 90.1 fL 80-98 N MEAN CELL HGB (test code = MCH) 27.5 picogram 27.0-33.0 N MEAN CELL HGB CONCETRATION (test code = MCHC) 30.6 gram/dL 33.0-36. 0 L RED CELL DISTRIBUTION WIDTH (test code = RDW) 19.9 % 11.6-16. 2 H PLATELET COUNT (test code = PLT) 298 K/mm3 150-450 N MEAN PLATELET VOLUME (test code = MPV) 13.0 fL 6.7-11.0 H [id number] 22:58:00* Test Item Value Reference Range Interpretation Comments GLUBED (test code = GLUBED) 366 mg/dL 74-106 H Performed by certified carousel operator at [facility] [id number] 22:57:00* Test Item Value Reference Range Interpretation Comments GLUBED (test code = GLUBED) 350 mg/dL 74-106 H Performed by certified carousel operator at [facility] [id number] 17:12:00* Test Item Value Reference Range Interpretation Comments GLUBED (test code = GLUBED) 238 mg/dL 74-106 H Performed by certified carousel operator at [facility] [id number] 11:30:00* Test Item Value Reference Range Interpretation Comments GLUBED (test code = GLUBED) 290 mg/dL 74-106 H Performed by certified carousel operator at [facility] - XR CHEST 1 [id number] 10:47:00 FAX: Josh Roldan MD [phone] [place]: St: ADM FAX: Kevin Bass MD [phone] FAX: Kevin Marrero MD [phone] Name: DAYANA RICHARDSON [facility] : 1960 Age/S: 59/F [address] Unit #: [id number] Loc: [address] [address] Phys: Kevin Real MD Acct: [id number] Dis Date: Status: ADM IN PH ONE #: [phone] Exam Date: 09/15/2019 1019 FAX #: [phone] Reason: SOB EXAMS: CPT CODE: [id number] XR CHEST 1 V [id number] REASON FOR EXAM: SOB Exam Order Date: 09/15/2019 12:00 AM Sarthak valenzuela M.D.: Kevin Real MD PROCEDURE: - XR CHEST 1 V COMPARISON: Frontal chest x-ray the previous morning FINDIN GS: Right lung base and left retrocardiac space opacities appear improve d from the prior exam and may represent resolving atelectatic changes and/or infection. The upper lungs are clear. There appears to be en interval placement of a tracheostomy button Cardiomediastinal s ilhouette is normal in size for technique. The mediastinal contours are wi thin normal limits. Degenerative changes of the spine and the ente jake suction tube are unchanged in appearance. IMPRESSION: Improving aeration of the lung bases. Interval placement of trac heostomy button. Location: [facility] Electronically Sign ed by Klaus Wylie MD on 09/15/2019 at 1047 Reported and signed by: Klaus Wylie MD CC: Josh Roldan MD; Kevin Veronica MD; Kevin Smith MD Technologist: Tavia Salas(R) Trnscrd Date/Time/By: 09/15/2019 (3047) : By: [email or web address] [facility] Print D/T: S: 09/15/2019 (3362) PAGE 1 Signed Report ARTERIAL BLOOD [id number] 10:18:00* Test Item Value Reference Range Interpretation Comments ARTERIAL BLOOD GAS PH (test code = PHA) 7.39 7.35-7.45 N ARTERIAL BLOOD GAS PCO2 (test code = PCO2A) 59.5 mm Hg 35-45 H ARTERIAL BLOOD GAS PO2 (test code = PO2A) 79.6 mmHg 80-100 L BICARBONATE TOTAL HCO3 (test code = HCO3) 35.5 mmol/L 23.0-27.0 HH Results called to and read back by Dr Mejia 10:09/15/2019; by [id number] BASE EXCESS (test code = TONIA) 9.0 mmol/L -3.0-5.0 HH Results called to and read back by Dr Mejia 10:09/15/2019; by [id number] ABG O2 SATURATION (test code = SATA) 94.7 % 90.0-98.0 N ABG TYPE (test code = TYPEA) Arterial FIO2 (test code = FIO2A) 40.0 ABG VENT MODE (test code = MODEA) BiPAP ABG PEEP (test code = PEEPA) 8.0 cmH2O ABG PRESSURE SUPPORT (test code = PSABG) 14 cmH2O ABG SITE (test code = SITEA) Rt RADIAL ARTERY MODIFIED ALLENS (test code = MODALL) Yes CHECK PERFORMED HEMATOCRIT (test code = HCT/ABG) 31 % 35-47 L TOTAL HGB (test code = THB) 10.6 gram/dL 11.5-15.5 L HGB O2 SAT (test code = HBOSAT) 93.5 % 94.00-98.00 L CARBOXYHEMOGLOBIN (test code = HOHGBT) 0.9 %totalHg 0.5-1.5 N METHEMOGLOBIN (test code = METHGB) 0.4 % 0.0-1.50 N O2 CONTENT (test code = O2CT) 14.0 % vol 18.0-22.0 L [id number] 05:05:00* Test Item Value Reference Range Interpretation Comments GLUBED (test code = GLUBED) 231 mg/dL 74-106 H Performed by certified carousel operator at [facility] BASIC METABOLIC [id number] 02:12:00* Test Item Value Reference Range Interpretation Comments SODIUM (test code = NA) 147 mmol/L 136-145 H POTASSIUM (test code = K) 3.8 mmol/L 3.5-5.1 N CHLORIDE (test code = CL) 109.0 mmol/L 98-107 H CARBON DIOXIDE (test code = CO2) 35.0 mmol/L 21-32 H ANION GAP (test code = GAP) 6.8 10-20 L GLUCOSE (test code = GLU) 195 mg/dL 74-106 H BLOOD UREA NITROGEN (test code = BUN) 24 mg/dL 7-18 H GLOMERULAR FILTRATION RATE (test code = GFR) > 60 mL/min >=60 Estimated GFR by using Modified MDRD formula.Chronic kidney disease is defined as either kidney damageor GFR <60 mL/min/1.73 m2 for >3 months. CREATININE (test code = CREAT) 0.60 mg/dL 0.55-1.02 N Note change in reference range due to change in reagent. BUN/CREATININE RATIO (test code = BUN/CREA) 40.0 10-20 H CALCIUM (test code = CA) 8.8 mg/dL 8.5-10.1 N [id number] 02:12:00* Test Item Value Reference Range Interpretation Comments MAGNESIUM (test code = MAG) 1.6 mg/dL 1.8-2.4 L CBC W/O [id number] 02:07:00* Test Item Value Reference Range Interpretation Comments WHITE BLOOD CELL (test code = WBC) 13.3 K/mm3 4.5-12.5 H RED BLOOD CELL (test code = RBC) 3.11 mill/mm3 3.7-5.2 L HEMOGLOBIN (test code = HGB) 8.5 gram/dL 11.5-15.5 L HEMATOCRIT (test code = HCT) 28.1 % 36.0-46.0 L MEAN CELL VOLUME (test code = MCV) 90.4 fL 80-98 N MEAN CELL HGB (test code = MCH) 27.3 picogram 27.0-33.0 N MEAN CELL HGB CONCETRATION (test code = MCHC) 30.2 gram/dL 33.0-36. 0 L RED CELL DISTRIBUTION WIDTH (test code = RDW) 20.0 % 11.6-16. 2 H PLATELET COUNT (test code = PLT) 296 K/mm3 150-450 RESULT VERIFIED BY REPEAT ANALYSIS MEAN PLATELET VOLUME (test code = MPV) 13.0 fL 6.7-11.0 H BASIC METABOLIC [id number] 02:07:00* Test Item Value Reference Range Interpretation Comments SODIUM (test code = NA) 147 mmol/L 136-145 H POTASSIUM (test code = K) 3.8 mmol/L 3.5-5.1 N CHLORIDE (test code = CL) 109.0 mmol/L 98-107 H CARBON DIOXIDE (test code = CO2) mmol/L 21-32 ANION GAP (test code = GAP) 10-20 GLUCOSE (test code = GLU) mg/dL 74-106 BLOOD UREA NITROGEN (test code = BUN) mg/dL 7-18 GLOMERULAR FILTRATION RATE (test code = GFR) mL/min >=60 CREATININE (test code = CREAT) mg/dL 0.55-1.02 BUN/CREATININE RATIO (test code = BUN/CREA) 10-20 CALCIUM (test code = CA) mg/dL 8.5-10.1 [id number] 02:07:00* Test Item Value Reference Range Interpretation Comments MAGNESIUM (test code = MAG) mg/dL 1.8-2.4 [id number] 21:49:00* Test Item Value Reference Range Interpretation Comments GLUBED (test code = GLUBED) 211 mg/dL 74-106 H Performed by certified carousel operator at [facility] [id number] 16:10:00* Test Item Value Reference Range Interpretation Comments GLUBED (test code = GLUBED) 152 mg/dL 74-106 H Performed by certified carousel operator at [facility] [id number] 10:58:00* Test Item Value Reference Range Interpretation Comments GLUBED (test code = GLUBED) 205 mg/dL 74-106 H Performed by certified carousel operator at [facility] - XR CHEST 1 [id number] 09:45:00 FAX: Josh Roldan MD [phone] [place]: St: ADM FAX: Kevin Bass MD [phone] FAX: Kevin Marrero MD [phone] Name: DAYANA RICHARDSON [facility] : 1960 Age/S: 59/F [address] Unit #: [id number] Loc: [place] [address] Phys: Kevin Real MD Acct: [id number] Dis Date: Status: ADM IN ONE #: [phone] Exam Date: 09/14/2019 0908 FAX #: [phone] Reason: F/U EXAMS: CPT CODE: [id number] XR CHEST 1 V [id number] REASON FOR EXAM: F/U Exam Order Date: 09/14/2019 12:00 AM O bianca Robles: Kevin Real MD PROCEDURE: - XR CHEST 1 V COMPARISON: Frontal chest x-ray September 10, 2019 FINDINGS: There are opacities in the right lung base and in the left retroca rdiac space which appears similar to the prior exam and may represent any combination of atelectasis and pneumonia. Cardiomediastinal silhou ette is normal in size for technique. The mediastinal contours are within normal limits. Mild degenerative changes are present in the spine. There is been a prior cholecystectomy. There are also surgical clips mary g the left upper abdomen which may represent a prior sleeve gastrectomy. E nteric suction tube terminates in the stomach. IMP RESSION: No significant change from prior exam. Locati on: [facility] at 094 5 Reported and signed by: Klaus Wylie MD CC: Josh Ahmadi MD; Kevin Veronica MD; Kevin Real MD Technologist: Rodrigue glaser RT(R) Trnscrd Date/Time/By: 09/14/2019 (0945 ) : By: [email or web address] [facility] Print D/T: S: 09/14/2019 (0949) PAGE 1 Signed Report [id number] 04:41:00* Test Item Value Reference Range Interpretation Comments GLUBED (test code = GLUBED) 242 mg/dL 74-106 H Performed by certified carousel operator at [facility] BASIC METABOLIC [id number] 04:11:00* Test Item Value Reference Range Interpretation Comments SODIUM (test code = NA) 144 mmol/L 136-145 N POTASSIUM (test code = K) 3.8 mmol/L 3.5-5.1 N CHLORIDE (test code = CL) 107.0 mmol/L 98-107 N CARBON DIOXIDE (test code = CO2) 32.0 mmol/L 21-32 N ANION GAP (test code = GAP) 8.8 10-20 L GLUCOSE (test code = GLU) 290 mg/dL 74-106 H BLOOD UREA NITROGEN (test code = BUN) 25 mg/dL 7-18 H GLOMERULAR FILTRATION RATE (test code = GFR) > 60 mL/min >=60 Estimated GFR by using Modified MDRD formula.Chronic kidney disease is defined as either kidney damageor GFR <60 mL/min/1.73 m2 for >3 months. CREATININE (test code = CREAT) 0.60 mg/dL 0.55-1.02 N Note change in reference range due to change in reagent. BUN/CREATININE RATIO (test code = BUN/CREA) 41.7 10-20 H CALCIUM (test code = CA) 9.1 mg/dL 8.5-10.1 N [id number] 04:11:00* Test Item Value Reference Range Interpretation Comments MAGNESIUM (test code = MAG) 1.7 mg/dL 1.8-2.4 L CBC W/O [id number] 03:59:00* Test Item Value Reference Range Interpretation Comments WHITE BLOOD CELL (test code = WBC) 10.9 K/mm3 4.5-12.5 N RED BLOOD CELL (test code = RBC) 3.25 mill/mm3 3.7-5.2 L HEMOGLOBIN (test code = HGB) 8.8 gram/dL 11.5-15.5 L HEMATOCRIT (test code = HCT) 29.1 % 36.0-46.0 L MEAN CELL VOLUME (test code = MCV) 89.5 fL 80-98 N MEAN CELL HGB (test code = MCH) 27.1 picogram 27.0-33.0 N MEAN CELL HGB CONCETRATION (test code = MCHC) 30.2 gram/dL 33.0-36. 0 L RED CELL DISTRIBUTION WIDTH (test code = RDW) 19.6 % 11.6-16. 2 H PLATELET COUNT (test code = PLT) 243 K/mm3 150-450 RESULT VERIFIED BY REPEAT ANALYSIS MEAN PLATELET VOLUME (test code = MPV) 13.4 fL 6.7-11.0 H [id number] 21:47:00* Test Item Value Reference Range Interpretation Comments GLUBED (test code = GLUBED) 270 mg/dL 74-106 H Performed by certified carousel operator at [facility] [id number] 16:11:00* Test Item Value Reference Range Interpretation Comments GLUBED (test code = GLUBED) 340 mg/dL 74-106 H Performed by certified carousel operator at [facility] [id number] 11:28:00* Test Item Value Reference Range Interpretation Comments GLUBED (test code = GLUBED) 232 mg/dL 74-106 H Performed by certified carousel operator at [facility] CBC W/O [id number] 02:04:00* Test Item Value Reference Range Interpretation Comments WHITE BLOOD CELL (test code = WBC) 12.8 K/mm3 4.5-12.5 H RED BLOOD CELL (test code = RBC) 3.13 mill/mm3 3.7-5.2 L HEMOGLOBIN (test code = HGB) 8.5 gram/dL 11.5-15.5 L HEMATOCRIT (test code = HCT) 27.8 % 36.0-46.0 L MEAN CELL VOLUME (test code = MCV) 88.8 fL 80-98 N MEAN CELL HGB (test code = MCH) 27.2 picogram 27.0-33.0 N MEAN CELL HGB CONCETRATION (test code = MCHC) 30.6 gram/dL 33.0-36. 0 L RED CELL DISTRIBUTION WIDTH (test code = RDW) 19.5 % 11.6-16. 2 H PLATELET COUNT (test code = PLT) 324 K/mm3 150-450 N MEAN PLATELET VOLUME (test code = MPV) 13.4 fL 6.7-11.0 H VANCOMYCIN [id number] 01:40:00* Test Item Value Reference Range Interpretation Comments VANCOMYCIN TROUGH (test code = VANCT) 14.1 ug/mL 10-20 N BASIC METABOLIC [id number] 01:40:00* Test Item Value Reference Range Interpretation Comments SODIUM (test code = NA) 146 mmol/L 136-145 H POTASSIUM (test code = K) 3.5 mmol/L 3.5-5.1 N CHLORIDE (test code = CL) 109.0 mmol/L 98-107 H CARBON DIOXIDE (test code = CO2) 34.0 mmol/L 21-32 H ANION GAP (test code = GAP) 6.5 10-20 L GLUCOSE (test code = GLU) 179 mg/dL 74-106 H BLOOD UREA NITROGEN (test code = BUN) 22 mg/dL 7-18 H GLOMERULAR FILTRATION RATE (test code = GFR) > 60 mL/min >=60 Estimated GFR by using Modified MDRD formula.Chronic kidney disease is defined as either kidney damageor GFR <60 mL/min/1.73 m2 for >3 months. CREATININE (test code = CREAT) 0.70 mg/dL 0.55-1.02 N Note change in reference range due to change in reagent. BUN/CREATININE RATIO (test code = BUN/CREA) 31.4 10-20 H CALCIUM (test code = CA) 8.9 mg/dL 8.5-10.1 N [id number] 01:40:00* Test Item Value Reference Range Interpretation Comments PHOSPHORUS (test code = PHOS) 2.7 mg/dL 2.5-4.9 N [id number] 01:40:00* Test Item Value Reference Range Interpretation Comments MAGNESIUM (test code = MAG) 1.6 mg/dL 1.8-2.4 L BASIC METABOLIC [id number] 01:35:00* Test Item Value Reference Range Interpretation Comments SODIUM (test code = NA) 146 mmol/L 136-145 H POTASSIUM (test code = K) 3.5 mmol/L 3.5-5.1 N CHLORIDE (test code = CL) 109.0 mmol/L 98-107 H CARBON DIOXIDE (test code = CO2) mmol/L 21-32 ANION GAP (test code = GAP) 10-20 GLUCOSE (test code = GLU) mg/dL 74-106 BLOOD UREA NITROGEN (test code = BUN) mg/dL 7-18 GLOMERULAR FILTRATION RATE (test code = GFR) mL/min >=60 CREATININE (test code = CREAT) mg/dL 0.55-1.02 BUN/CREATININE RATIO (test code = BUN/CREA) 10-20 CALCIUM (test code = CA) mg/dL 8.5-10.1 [id number] 01:35:00* Test Item Value Reference Range Interpretation Comments PHOSPHORUS (test code = PHOS) mg/dL 2.5-4.9 [id number] 01:35:00* Test Item Value Reference Range Interpretation Comments MAGNESIUM (test code = MAG) mg/dL 1.8-2.4 [id number] 21:11:00* Test Item Value Reference Range Interpretation Comments GLUBED (test code = GLUBED) 271 mg/dL 74-106 H Performed by certified carousel operator at [facility] [id number] 16:33:00* Test Item Value Reference Range Interpretation Comments GLUBED (test code = GLUBED) 254 mg/dL 74-106 H Performed by certified carousel operator at [facility] [id number] 10:17:00* Test Item Value Reference Range Interpretation Comments GLUBED (test code = GLUBED) 213 mg/dL 74-106 H Performed by certified carousel operator at [facility] ARTERIAL BLOOD [id number] 10:05:00* Test Item Value Reference Range Interpretation Comments ARTERIAL BLOOD GAS PH (test code = PHA) 7.42 7.35-7.45 N ARTERIAL BLOOD GAS PCO2 (test code = PCO2A) 50.8 mm Hg 35-45 H ARTERIAL BLOOD GAS PO2 (test code = PO2A) 73.9 mmHg 80-100 L BICARBONATE TOTAL HCO3 (test code = HCO3) 31.9 mmol/L 23.0-27.0 H BASE EXCESS (test code = TONIA) 6.5 mmol/L -3.0-5.0 HH Results called to and read back by Kamari 10:04 - 09/12/2019; by Liset ABG O2 SATURATION (test code = SATA) 94.6 % 90.0-98.0 N ABG TYPE (test code = TYPEA) Arterial FIO2 (test code = FIO2A) 40.0 ABG VENT MODE (test code = MODEA) BiPAP ABG VENT RESP RATE (test code = RRA) 16.0 per min ABG PEEP (test code = PEEPA) 8.0 cmH2O ABG PRESSURE SUPPORT (test code = PSABG) 14 cmH2O ABG SITE (test code = SITEA) Rt RADIAL ARTERY MODIFIED ALLENS (test code = MODALL) Yes CHECK PERFORMED HEMATOCRIT (test code = HCT/ABG) 28 % 35-47 L TOTAL HGB (test code = THB) 9.6 gram/dL 11.5-15.5 L HGB O2 SAT (test code = HBOSAT) 93.7 % 94.00-98.00 L CARBOXYHEMOGLOBIN (test code = HOHGBT) 0.6 %totalHg 0.5-1.5 N METHEMOGLOBIN (test code = METHGB) 0.3 % 0.0-1.50 N O2 CONTENT (test code = O2CT) 12.7 % vol 18.0-22.0 L [id number] 07:40:00* Test Item Value Reference Range Interpretation Comments GLUBED (test code = GLUBED) 166 mg/dL 74-106 H Performed by certified carousel operator at [facility] [id number] 03:49:00* Test Item Value Reference Range Interpretation Comments VANCOMYCIN (test code = VANCO) 27.7 UG/ML 5.0-45.0 N [id number] 03:46:00* Test Item Value Reference Range Interpretation Comments GLUBED (test code = GLUBED) 149 mg/dL 74-106 H Performed by certified carousel operator at [facility] BASIC METABOLIC [id number] 02:57:00* Test Item Value Reference Range Interpretation Comments SODIUM (test code = NA) 145 mmol/L 136-145 N POTASSIUM (test code = K) 3.6 mmol/L 3.5-5.1 N CHLORIDE (test code = CL) 108.0 mmol/L 98-107 H CARBON DIOXIDE (test code = CO2) 34.0 mmol/L 21-32 H ANION GAP (test code = GAP) 6.6 10-20 L GLUCOSE (test code = GLU) 99 mg/dL 74-106 N BLOOD UREA NITROGEN (test code = BUN) 21 mg/dL 7-18 H GLOMERULAR FILTRATION RATE (test code = GFR) > 60 mL/min >=60 Estimated GFR by using Modified MDRD formula.Chronic kidney disease is defined as either kidney damageor GFR <60 mL/min/1.73 m2 for >3 months. CREATININE (test code = CREAT) 0.80 mg/dL 0.55-1.02 N Note change in reference range due to change in reagent. BUN/CREATININE RATIO (test code = BUN/CREA) 26.3 10-20 H CALCIUM (test code = CA) 9.1 mg/dL 8.5-10.1 N [id number] 02:57:00* Test Item Value Reference Range Interpretation Comments PHOSPHORUS (test code = PHOS) 2.5 mg/dL 2.5-4.9 N [id number] 02:57:00* Test Item Value Reference Range Interpretation Comments MAGNESIUM (test code = MAG) 1.8 mg/dL 1.8-2.4 N [id number] 02:06:00* Test Item Value Reference Range Interpretation Comments GLUBED (test code = GLUBED) 111 mg/dL 74-106 H Performed by certified carousel operator at [facility] CBC W/AUTO [id number] 01:21:00* Test Item Value Reference Range Interpretation Comments WHITE BLOOD CELL (test code = WBC) 13.7 K/mm3 4.5-12.5 H RED BLOOD CELL (test code = RBC) 3.18 mill/mm3 3.7-5.2 L HEMOGLOBIN (test code = HGB) 8.7 gram/dL 11.5-15.5 L HEMATOCRIT (test code = HCT) 28.5 % 36.0-46.0 L MEAN CELL VOLUME (test code = MCV) 89.6 fL 80-98 N MEAN CELL HGB (test code = MCH) 27.4 picogram 27.0-33.0 N MEAN CELL HGB CONCETRATION (test code = MCHC) 30.5 gram/dL 33.0-36. 0 L RED CELL DISTRIBUTION WIDTH (test code = RDW) 19.2 % 11.6-16. 2 H RED CELL DISTRIBUTION WIDTH SD (test code = RDW-SD) 63.1 fL 37 .0-51.0 H PLATELET COUNT (test code = PLT) 332 K/mm3 150-450 N MEAN PLATELET VOLUME (test code = MPV) 13.5 fL 6.7-11.0 H NEUTROPHIL % (test code = NT%) 75.6 % 39.0-69.0 H IMMATURE GRANULOCYTE % (test code = IG%) 0.4 % 0.0-5.0 N LYMPHOCYTE % (test code = LY%) 9.4 % 25.0-55.0 L MONOCYTE % (test code = MO%) 14.1 % 0.0-10.0 H EOSINOPHIL % (test code = EO%) 0.2 % 0.0-5.0 N BASOPHIL % (test code = BA%) 0.3 % 0.0-1.0 N NUCLEATED RBC % (test code = NRBC%) 0.0 % 0-0 N NEUTROPHIL # (test code = NT#) 10.31 K/mm3 1.8-7.7 H IMMATURE GRANULOCYTE # (test code = IG#) 0.06 x10 3/uL 0-0.03 H LYMPHOCYTE # (test code = LY#) 1.29 K/mm3 1.0-5.0 N MONOCYTE # (test code = MO#) 1.93 K/mm3 0-0.8 H EOSINOPHIL # (test code = EO#) 0.03 K/mm3 0.0-0.5 N BASOPHIL # (test code = BA#) 0.04 K/mm3 0.0-0.2 N NUCLEATED RBC # (test code = NRBC#) 0.00 K/mm3 0.0-0.1 N [id number] 01:00:00* Test Item Value Reference Range Interpretation Comments GLUBED (test code = GLUBED) 86 mg/dL 74-106 N Performed by certified carousel operator at [facility] [id number] 22:11:00* Test Item Value Reference Range Interpretation Comments GLUBED (test code = GLUBED) 174 mg/dL 74-106 H Performed by certified carousel operator at [facility] [id number] 22:11:00* Test Item Value Reference Range Interpretation Comments GLUBED (test code = GLUBED) 234 mg/dL 74-106 H Performed by certified carousel operator at [facility] [id number] 22:11:00* Test Item Value Reference Range Interpretation Comments GLUBED (test code = GLUBED) 273 mg/dL 74-106 H Performed by certified carousel operator at [facility] [id number] 19:45:00* Test Item Value Reference Range Interpretation Comments GLUBED (test code = GLUBED) 339 mg/dL 74-106 H Performed by certified carousel operator at [facility] [id number] 16:40:00* Test Item Value Reference Range Interpretation Comments GLUBED (test code = GLUBED) 338 mg/dL 74-106 H Performed by certified carousel operator at [facility] [id number] 16:40:00* Test Item Value Reference Range Interpretation Comments GLUBED (test code = GLUBED) 419 mg/dL 74-106 H Performed by certified carousel operator at [facility] [id number] 13:24:00* Test Item Value Reference Range Interpretation Comments VANCOMYCIN (test code = VANCO) 23.0 UG/ML 5.0-45.0 N [id number] 12:23:00* Test Item Value Reference Range Interpretation Comments GLUBED (test code = GLUBED) 256 mg/dL 74-106 H Performed by certified carousel operator at [facility] [id number] 05:28:00* Test Item Value Reference Range Interpretation Comments GLUBED (test code = GLUBED) 288 mg/dL 74-106 H Performed by certified carousel operator at [facility] CBC W/MANUAL [id number] 05:05:00* Test Item Value Reference Range Interpretation Comments WHITE BLOOD CELL (test code = WBC) 23.7 K/mm3 4.5-12.5 H RED BLOOD CELL (test code = RBC) 3.48 mill/mm3 3.7-5.2 L HEMOGLOBIN (test code = HGB) 9.5 gram/dL 11.5-15.5 L HEMATOCRIT (test code = HCT) 32.8 % 36.0-46.0 L MEAN CELL VOLUME (test code = MCV) 94.3 fL 80-98 N MEAN CELL HGB (test code = MCH) 27.3 picogram 27.0-33.0 N MEAN CELL HGB CONCETRATION (test code = MCHC) 29.0 gram/dL 33.0-36. 0 L RED CELL DISTRIBUTION WIDTH (test code = RDW) 19.8 % 11.6-16. 2 H RED CELL DISTRIBUTION WIDTH SD (test code = RDW-SD) 67.7 fL 37 .0-51.0 H PLATELET COUNT (test code = PLT) 309 K/mm3 150-450 N MEAN PLATELET VOLUME (test code = MPV) 13.5 fL 6.7-11.0 H IMMATURE GRANULOCYTE % (test code = IG%) 0.5 % 0.0-5.0 N NUCLEATED RBC % (test code = NRBC%) 0.0 % 0-0 N NEUTROPHIL # (test code = NT#) 22.30 K/mm3 1.8-7.7 H IMMATURE GRANULOCYTE # (test code = IG#) 0.12 x10 3/uL 0-0.03 H LYMPHOCYTE # (test code = LY#) 0.50 K/mm3 1.0-5.0 L MONOCYTE # (test code = MO#) 0.57 K/mm3 0-0.8 N EOSINOPHIL # (test code = EO#) 0.06 K/mm3 0.0-0.5 N BASOPHIL # (test code = BA#) 0.10 K/mm3 0.0-0.2 N NUCLEATED RBC # (test code = NRBC#) 0.00 K/mm3 0.0-0.1 N MANUAL DIFF REQUIRED (test code = MDIFF) YES STAIN ACCEPTABILITY (test code = STN ACCEPTABLE) STAIN ACCEPTABLE TOTAL CELLS COUNTED (test code = TCC) 115 #CELLS SEGMENTED NEUTROPHILS (test code = SEG) 96.5 % 39-69 H BAND NEUTROPHIL (test code = BAND) 0 % 0-10 N LYMPHOCYTE (test code = LYMPH) 0.9 % 25-55 L REACTIVE LYMPH (test code = RELYMPH) 0 % MONOCYTE (test code = MON) 1.7 % 0-10 N EOSINOPHIL (test code = EOS) 0 % 0.0-5.0 N BASOPHIL (test code = BASO) 0.9 % 0-1.0 N METAMYELOCYTE (test code = META) 0 % 0-0 N MYELOCYTE (test code = MYELO) 0 % 0.0-0.0 N PROMYELOCYTE (test code = PROM) 0 % 0-0 N HYPOCHROMIA (test code = HYPO) 1+ ANISOCYTOSIS (test code = ANISO) 1+ MACROCYTOSIS (test code = MACR) 1+ ROULEAUX (test code = ROU) MODERATE PLATELET ESTIMATE (test code = PLTEST) ADEQUATE PLATELET MORPHOLOGY (test code = PLTMORPH) APPEAR LARGE IMMATURE FORMS (test code = IMMAT) 0 % 0-0 N BASIC METABOLIC [id number] 04:54:00* Test Item Value Reference Range Interpretation Comments SODIUM (test code = NA) 142 mmol/L 136-145 N POTASSIUM (test code = K) 3.9 mmol/L 3.5-5.1 N CHLORIDE (test code = CL) 103.0 mmol/L 98-107 N CARBON DIOXIDE (test code = CO2) 30.0 mmol/L 21-32 N ANION GAP (test code = GAP) 12.9 10-20 N GLUCOSE (test code = GLU) 342 mg/dL 74-106 H BLOOD UREA NITROGEN (test code = BUN) 21 mg/dL 7-18 H GLOMERULAR FILTRATION RATE (test code = GFR) > 60 mL/min >=60 Estimated GFR by using Modified MDRD formula.Chronic kidney disease is defined as either kidney damageor GFR <60 mL/min/1.73 m2 for >3 months. CREATININE (test code = CREAT) 0.90 mg/dL 0.55-1.02 N Note change in reference range due to change in reagent. BUN/CREATININE RATIO (test code = BUN/CREA) 23.3 10-20 H CALCIUM (test code = CA) 9.0 mg/dL 8.5-10.1 N [id number] 04:54:00* Test Item Value Reference Range Interpretation Comments MAGNESIUM (test code = MAG) 1.7 mg/dL 1.8-2.4 L CBC W/MANUAL [id number] 04:39:00* Test Item Value Reference Range Interpretation Comments WHITE BLOOD CELL (test code = WBC) 23.7 K/mm3 4.5-12.5 H RED BLOOD CELL (test code = RBC) 3.48 mill/mm3 3.7-5.2 L HEMOGLOBIN (test code = HGB) 9.5 gram/dL 11.5-15.5 L HEMATOCRIT (test code = HCT) 32.8 % 36.0-46.0 L MEAN CELL VOLUME (test code = MCV) 94.3 fL 80-98 N MEAN CELL HGB (test code = MCH) 27.3 picogram 27.0-33.0 N MEAN CELL HGB CONCETRATION (test code = MCHC) 29.0 gram/dL 33.0-36. 0 L RED CELL DISTRIBUTION WIDTH (test code = RDW) 19.8 % 11.6-16. 2 H RED CELL DISTRIBUTION WIDTH SD (test code = RDW-SD) 67.7 fL 37 .0-51.0 H PLATELET COUNT (test code = PLT) 309 K/mm3 150-450 N MEAN PLATELET VOLUME (test code = MPV) 13.5 fL 6.7-11.0 H IMMATURE GRANULOCYTE % (test code = IG%) 0.5 % 0.0-5.0 N NUCLEATED RBC % (test code = NRBC%) 0.0 % 0-0 N NEUTROPHIL # (test code = NT#) 22.30 K/mm3 1.8-7.7 H IMMATURE GRANULOCYTE # (test code = IG#) 0.12 x10 3/uL 0-0.03 H LYMPHOCYTE # (test code = LY#) 0.50 K/mm3 1.0-5.0 L MONOCYTE # (test code = MO#) 0.57 K/mm3 0-0.8 N EOSINOPHIL # (test code = EO#) 0.06 K/mm3 0.0-0.5 N BASOPHIL # (test code = BA#) 0.10 K/mm3 0.0-0.2 N NUCLEATED RBC # (test code = NRBC#) 0.00 K/mm3 0.0-0.1 N MANUAL DIFF REQUIRED (test code = MDIFF) YES STAIN ACCEPTABILITY (test code = STN ACCEPTABLE) TOTAL CELLS COUNTED (test code = TCC) #CELLS SEGMENTED NEUTROPHILS (test code = SEG) % 39-69 LYMPHOCYTE (test code = LYMPH) % 25-55 MONOCYTE (test code = MON) % 0-10 EOSINOPHIL (test code = EOS) % 0.0-5.0 CABOT RINGS (test code = CAB) MORPHOLOGY COMMENT (test code = MOC) PLATELET ESTIMATE (test code = PLTEST) PLATELET MORPHOLOGY (test code = PLTMORPH) CBC W/MANUAL [id number] 04:39:00* Test Item Value Reference Range Interpretation Comments WHITE BLOOD CELL (test code = WBC) 23.7 K/mm3 4.5-12.5 H RED BLOOD CELL (test code = RBC) 3.48 mill/mm3 3.7-5.2 L HEMOGLOBIN (test code = HGB) 9.5 gram/dL 11.5-15.5 L HEMATOCRIT (test code = HCT) 32.8 % 36.0-46.0 L MEAN CELL VOLUME (test code = MCV) 94.3 fL 80-98 N MEAN CELL HGB (test code = MCH) 27.3 picogram 27.0-33.0 N MEAN CELL HGB CONCETRATION (test code = MCHC) 29.0 gram/dL 33.0-36. 0 L RED CELL DISTRIBUTION WIDTH (test code = RDW) 19.8 % 11.6-16. 2 H RED CELL DISTRIBUTION WIDTH SD (test code = RDW-SD) 67.7 fL 37 .0-51.0 H PLATELET COUNT (test code = PLT) 309 K/mm3 150-450 N MEAN PLATELET VOLUME (test code = MPV) 13.5 fL 6.7-11.0 H IMMATURE GRANULOCYTE % (test code = IG%) 0.5 % 0.0-5.0 N NUCLEATED RBC % (test code = NRBC%) 0.0 % 0-0 N NEUTROPHIL # (test code = NT#) 22.30 K/mm3 1.8-7.7 H IMMATURE GRANULOCYTE # (test code = IG#) 0.12 x10 3/uL 0-0.03 H LYMPHOCYTE # (test code = LY#) 0.50 K/mm3 1.0-5.0 L MONOCYTE # (test code = MO#) 0.57 K/mm3 0-0.8 N EOSINOPHIL # (test code = EO#) 0.06 K/mm3 0.0-0.5 N BASOPHIL # (test code = BA#) 0.10 K/mm3 0.0-0.2 N NUCLEATED RBC # (test code = NRBC#) 0.00 K/mm3 0.0-0.1 N MANUAL DIFF REQUIRED (test code = MDIFF) YES STAIN ACCEPTABILITY (test code = STN ACCEPTABLE) TOTAL CELLS COUNTED (test code = TCC) #CELLS SEGMENTED NEUTROPHILS (test code = SEG) % 39-69 LYMPHOCYTE (test code = LYMPH) % 25-55 MONOCYTE (test code = MON) % 0-10 EOSINOPHIL (test code = EOS) % 0.0-5.0 MORPHOLOGY COMMENT (test code = MOC) PLATELET ESTIMATE (test code = PLTEST) PLATELET MORPHOLOGY (test code = PLTMORPH) CBC W/MANUAL [id number] 04:39:00* Test Item Value Reference Range Interpretation Comments WHITE BLOOD CELL (test code = WBC) 23.7 K/mm3 4.5-12.5 H RED BLOOD CELL (test code = RBC) 3.48 mill/mm3 3.7-5.2 L HEMOGLOBIN (test code = HGB) 9.5 gram/dL 11.5-15.5 L HEMATOCRIT (test code = HCT) 32.8 % 36.0-46.0 L MEAN CELL VOLUME (test code = MCV) 94.3 fL 80-98 N MEAN CELL HGB (test code = MCH) 27.3 picogram 27.0-33.0 N MEAN CELL HGB CONCETRATION (test code = MCHC) 29.0 gram/dL 33.0-36. 0 L RED CELL DISTRIBUTION WIDTH (test code = RDW) 19.8 % 11.6-16. 2 H RED CELL DISTRIBUTION WIDTH SD (test code = RDW-SD) 67.7 fL 37 .0-51.0 H PLATELET COUNT (test code = PLT) 309 K/mm3 150-450 N MEAN PLATELET VOLUME (test code = MPV) 13.5 fL 6.7-11.0 H IMMATURE GRANULOCYTE % (test code = IG%) 0.5 % 0.0-5.0 N NUCLEATED RBC % (test code = NRBC%) 0.0 % 0-0 N NEUTROPHIL # (test code = NT#) 22.30 K/mm3 1.8-7.7 H IMMATURE GRANULOCYTE # (test code = IG#) 0.12 x10 3/uL 0-0.03 H LYMPHOCYTE # (test code = LY#) 0.50 K/mm3 1.0-5.0 L MONOCYTE # (test code = MO#) 0.57 K/mm3 0-0.8 N EOSINOPHIL # (test code = EO#) 0.06 K/mm3 0.0-0.5 N BASOPHIL # (test code = BA#) 0.10 K/mm3 0.0-0.2 N NUCLEATED RBC # (test code = NRBC#) 0.00 K/mm3 0.0-0.1 N MANUAL DIFF REQUIRED (test code = MDIFF) YES STAIN ACCEPTABILITY (test code = STN ACCEPTABLE) TOTAL CELLS COUNTED (test code = TCC) #CELLS SEGMENTED NEUTROPHILS (test code = SEG) % 39-69 LYMPHOCYTE (test code = LYMPH) % 25-55 MONOCYTE (test code = MON) % 0-10 MORPHOLOGY COMMENT (test code = MOC) PLATELET ESTIMATE (test code = PLTEST) PLATELET MORPHOLOGY (test code = PLTMORPH) BASIC METABOLIC [id number] 04:38:00* Test Item Value Reference Range Interpretation Comments SODIUM (test code = NA) 142 mmol/L 136-145 N POTASSIUM (test code = K) 3.9 mmol/L 3.5-5.1 N CHLORIDE (test code = CL) 103.0 mmol/L 98-107 N CARBON DIOXIDE (test code = CO2) mmol/L 21-32 ANION GAP (test code = GAP) 10-20 GLUCOSE (test code = GLU) mg/dL 74-106 BLOOD UREA NITROGEN (test code = BUN) mg/dL 7-18 GLOMERULAR FILTRATION RATE (test code = GFR) mL/min >=60 CREATININE (test code = CREAT) mg/dL 0.55-1.02 BUN/CREATININE RATIO (test code = BUN/CREA) 10-20 CALCIUM (test code = CA) mg/dL 8.5-10.1 [id number] 04:38:00* Test Item Value Reference Range Interpretation Comments MAGNESIUM (test code = MAG) mg/dL 1.8-2.4 CBC W/MANUAL [id number] 04:38:00* Test Item Value Reference Range Interpretation Comments WHITE BLOOD CELL (test code = WBC) 23.7 K/mm3 4.5-12.5 H RED BLOOD CELL (test code = RBC) 3.48 mill/mm3 3.7-5.2 L HEMOGLOBIN (test code = HGB) 9.5 gram/dL 11.5-15.5 L HEMATOCRIT (test code = HCT) 32.8 % 36.0-46.0 L MEAN CELL VOLUME (test code = MCV) 94.3 fL 80-98 N MEAN CELL HGB (test code = MCH) 27.3 picogram 27.0-33.0 N MEAN CELL HGB CONCETRATION (test code = MCHC) 29.0 gram/dL 33.0-36. 0 L RED CELL DISTRIBUTION WIDTH (test code = RDW) 19.8 % 11.6-16. 2 H RED CELL DISTRIBUTION WIDTH SD (test code = RDW-SD) 67.7 fL 37 .0-51.0 H PLATELET COUNT (test code = PLT) 309 K/mm3 150-450 N MEAN PLATELET VOLUME (test code = MPV) 13.5 fL 6.7-11.0 H IMMATURE GRANULOCYTE % (test code = IG%) 0.5 % 0.0-5.0 N NUCLEATED RBC % (test code = NRBC%) 0.0 % 0-0 N NEUTROPHIL # (test code = NT#) 22.30 K/mm3 1.8-7.7 H IMMATURE GRANULOCYTE # (test code = IG#) 0.12 x10 3/uL 0-0.03 H LYMPHOCYTE # (test code = LY#) 0.50 K/mm3 1.0-5.0 L MONOCYTE # (test code = MO#) 0.57 K/mm3 0-0.8 N EOSINOPHIL # (test code = EO#) 0.06 K/mm3 0.0-0.5 N BASOPHIL # (test code = BA#) 0.10 K/mm3 0.0-0.2 N NUCLEATED RBC # (test code = NRBC#) 0.00 K/mm3 0.0-0.1 N MANUAL DIFF REQUIRED (test code = MDIFF) YES STAIN ACCEPTABILITY (test code = STN ACCEPTABLE) TOTAL CELLS COUNTED (test code = TCC) #CELLS SEGMENTED NEUTROPHILS (test code = SEG) % 39-69 LYMPHOCYTE (test code = LYMPH) % 25-55 MONOCYTE (test code = MON) % 0-10 EOSINOPHIL (test code = EOS) % 0.0-5.0 CABOT RINGS (test code = CAB) MORPHOLOGY COMMENT (test code = MOC) PLATELET ESTIMATE (test code = PLTEST) PLATELET MORPHOLOGY (test code = PLTMORPH) CBC W/MANUAL [id number] 04:38:00* Test Item Value Reference Range Interpretation Comments WHITE BLOOD CELL (test code = WBC) 23.7 K/mm3 4.5-12.5 H RED BLOOD CELL (test code = RBC) 3.48 mill/mm3 3.7-5.2 L HEMOGLOBIN (test code = HGB) 9.5 gram/dL 11.5-15.5 L HEMATOCRIT (test code = HCT) 32.8 % 36.0-46.0 L MEAN CELL VOLUME (test code = MCV) 94.3 fL 80-98 N MEAN CELL HGB (test code = MCH) 27.3 picogram 27.0-33.0 N MEAN CELL HGB CONCETRATION (test code = MCHC) 29.0 gram/dL 33.0-36. 0 L RED CELL DISTRIBUTION WIDTH (test code = RDW) 19.8 % 11.6-16. 2 H RED CELL DISTRIBUTION WIDTH SD (test code = RDW-SD) 67.7 fL 37 .0-51.0 H PLATELET COUNT (test code = PLT) 309 K/mm3 150-450 N MEAN PLATELET VOLUME (test code = MPV) 13.5 fL 6.7-11.0 H IMMATURE GRANULOCYTE % (test code = IG%) 0.5 % 0.0-5.0 N NUCLEATED RBC % (test code = NRBC%) 0.0 % 0-0 N NEUTROPHIL # (test code = NT#) 22.30 K/mm3 1.8-7.7 H IMMATURE GRANULOCYTE # (test code = IG#) 0.12 x10 3/uL 0-0.03 H LYMPHOCYTE # (test code = LY#) 0.50 K/mm3 1.0-5.0 L MONOCYTE # (test code = MO#) 0.57 K/mm3 0-0.8 N EOSINOPHIL # (test code = EO#) 0.06 K/mm3 0.0-0.5 N BASOPHIL # (test code = BA#) 0.10 K/mm3 0.0-0.2 N NUCLEATED RBC # (test code = NRBC#) 0.00 K/mm3 0.0-0.1 N MANUAL DIFF REQUIRED (test code = MDIFF) YES STAIN ACCEPTABILITY (test code = STN ACCEPTABLE) TOTAL CELLS COUNTED (test code = TCC) #CELLS SEGMENTED NEUTROPHILS (test code = SEG) % 39-69 LYMPHOCYTE (test code = LYMPH) % 25-55 MONOCYTE (test code = MON) % 0-10 EOSINOPHIL (test code = EOS) % 0.0-5.0 CABOT RINGS (test code = CAB) MORPHOLOGY COMMENT (test code = MOC) PLATELET ESTIMATE (test code = PLTEST) PLATELET MORPHOLOGY (test code = PLTMORPH) [id number] 00:50:00* Test Item Value Reference Range Interpretation Comments GLUBED (test code = GLUBED) 331 mg/dL 74-106 H Performed by certified carousel operator at [facility] [id number] 21:41:00* Test Item Value Reference Range Interpretation Comments GLUBED (test code = GLUBED) 272 mg/dL 74-106 H Performed by certified carousel operator at [facility] [id number] 16:19:00* Test Item Value Reference Range Interpretation Comments GLUBED (test code = GLUBED) 210 mg/dL 74-106 H Performed by certified carousel operator at [facility] [id number] 11:01:00* Test Item Value Reference Range Interpretation Comments GLUBED (test code = GLUBED) 115 mg/dL 74-106 H Performed by certified carousel operator at [facility] - XR CHEST 1 [id number] 10:33:00 FAX: Chuck Wilson MD [phone] [place]: St: ADM FAX: Josh Roldan MD [phone] FAX: Kevin Bass MD [phone] Name: DAYANA RICHARDSON [facility] : 1960 Age/S: 59/F [address] Unit #: [id number] Loc: [place] [address] Phys: Chuck Orourke MD Acct: [id number] Dis Date: Status: ADM IN ONE #: [phone] Exam Date: 09/10/2019 0945 FAX #: [phone] Reason: UPDATED PUL VIEW EXAMS: CPT CODE: [id number] XR CHEST 1 V 09470 CLINICAL HISTO RY: Respiratory failure TECHNIQUE: AP chest x-ray CO MPARISON: Previous day. IMPRESSION: No signifi cant interval change. Patchy right basilar consolidation. No pleural eff usion. Normal heart size. Atherosclerotic vascular calcification of the thoracic aorta. NG tube. LOCATION: [facility] Signed by Steph Gray D.O. on 09/10/2019 at 1033 Repor tejinder and signed by: Steph Gray D.O. CC: Chuck Orourke MD; Josh Roldan MD; Kevin Veronica MD Technologist: Kavitha Newby RT(R) Trnscrd Date/Time/By: 09/10/2019 (1033) : By: [email or web address] Orig Print D/T: S: 09/10/2019 (1036) PAGE 1 Signed Report [id number] 08:27:00* Test Item Value Reference Range Interpretation Comments GLUBED (test code = GLUBED) 315 mg/dL 74-106 H Performed by certified carousel operator at [facility] ARTERIAL BLOOD [id number] 07:19:00* Test Item Value Reference Range Interpretation Comments ARTERIAL BLOOD GAS PH (test code = PHA) 7.33 7.35-7.45 L ARTERIAL BLOOD GAS PCO2 (test code = PCO2A) 67.6 mm Hg 35-45 HH Results called to and read back by stephanie 09/10/2019; by linette car body designer ARTERIAL BLOOD GAS PO2 (test code = PO2A) 45.2 mmHg 80-100 LL Results called to and read back by coliflynn 09/10/2019; by linette car body designer BICARBONATE TOTAL HCO3 (test code = HCO3) 34.6 mmol/L 23.0-27.0 H BASE EXCESS (test code = TONIA) 6.8 mmol/L -3.0-5.0 HH Results called to and read back by stephanie 09/10/2019; by linette car body designer ABG O2 SATURATION (test code = SATA) 75.8 % 90.0-98.0 L ABG TYPE (test code = TYPEA) Arterial FIO2 (test code = FIO2A) 50.0 ABG VENT MODE (test code = MODEA) AVAPS ABG VENT RESP RATE (test code = RRA) 14.0 per min ABG TIDAL VOLUME (test code = TVA) 400.0 mL ABG PEEP (test code = PEEPA) 5.0 cmH2O ABG SITE (test code = SITEA) Rt RADIAL ARTERY MODIFIED ALLENS (test code = MODALL) Yes CHECK PERFORMED SODIUM (test code = NA/ABG) 140.5 mEq/L 135-148 N POTASSIUM (test code = K/ABG) 3.3 mEq/L 3.5-4.5 L CHLORIDE (test code = CL/ABG) 101 mEq/L 98-106 N GLUCOSE (test code = GLU/ABG) 208 mg/dL 74-99 H HEMATOCRIT (test code = HCT/ABG) 33 % 35-47 L IONIZED CALCIUM (test code = CAIABG) 1.22 mmol/L 1.1-1.37 N TOTAL HGB (test code = THB) 11.2 gram/dL 11.5-15.5 L HGB O2 SAT (test code = HBOSAT) 75.1 % 94.00-98.00 LL CARBOXYHEMOGLOBIN (test code = HOHGBT) 0.8 %totalHg 0.5-1.5 N METHEMOGLOBIN (test code = METHGB) 0.1 % 0.0-1.50 N O2 CONTENT (test code = O2CT) 11.8 % vol 18.0-22.0 L BASIC METABOLIC [id number] 02:37:00* Test Item Value Reference Range Interpretation Comments SODIUM (test code = NA) 140 mmol/L 136-145 N POTASSIUM (test code = K) 3.7 mmol/L 3.5-5.1 N CHLORIDE (test code = CL) 100.0 mmol/L 98-107 N CARBON DIOXIDE (test code = CO2) 35.0 mmol/L 21-32 H ANION GAP (test code = GAP) 8.7 10-20 L GLUCOSE (test code = GLU) 335 mg/dL 74-106 H BLOOD UREA NITROGEN (test code = BUN) 21 mg/dL 7-18 H GLOMERULAR FILTRATION RATE (test code = GFR) > 60 mL/min >=60 Estimated GFR by using Modified MDRD formula.Chronic kidney disease is defined as either kidney damageor GFR <60 mL/min/1.73 m2 for >3 months. CREATININE (test code = CREAT) 0.70 mg/dL 0.55-1.02 N Note change in reference range due to change in reagent. BUN/CREATININE RATIO (test code = BUN/CREA) 30.0 10-20 H CALCIUM (test code = CA) 8.6 mg/dL 8.5-10.1 N [id number] 02:37:00* Test Item Value Reference Range Interpretation Comments MAGNESIUM (test code = MAG) 1.6 mg/dL 1.8-2.4 L BASIC METABOLIC [id number] 02:29:00* Test Item Value Reference Range Interpretation Comments SODIUM (test code = NA) 140 mmol/L 136-145 N POTASSIUM (test code = K) 3.7 mmol/L 3.5-5.1 N CHLORIDE (test code = CL) 100.0 mmol/L 98-107 N CARBON DIOXIDE (test code = CO2) mmol/L 21-32 ANION GAP (test code = GAP) 10-20 GLUCOSE (test code = GLU) mg/dL 74-106 BLOOD UREA NITROGEN (test code = BUN) mg/dL 7-18 GLOMERULAR FILTRATION RATE (test code = GFR) mL/min >=60 CREATININE (test code = CREAT) mg/dL 0.55-1.02 BUN/CREATININE RATIO (test code = BUN/CREA) 10-20 CALCIUM (test code = CA) mg/dL 8.5-10.1 [id number] 02:29:00* Test Item Value Reference Range Interpretation Comments MAGNESIUM (test code = MAG) mg/dL 1.8-2.4 CBC W/O [id number] 02:21:00* Test Item Value Reference Range Interpretation Comments WHITE BLOOD CELL (test code = WBC) 22.5 K/mm3 4.5-12.5 H RED BLOOD CELL (test code = RBC) 3.35 mill/mm3 3.7-5.2 L HEMOGLOBIN (test code = HGB) 9.2 gram/dL 11.5-15.5 L HEMATOCRIT (test code = HCT) 30.8 % 36.0-46.0 L MEAN CELL VOLUME (test code = MCV) 91.9 fL 80-98 N MEAN CELL HGB (test code = MCH) 27.5 picogram 27.0-33.0 N MEAN CELL HGB CONCETRATION (test code = MCHC) 29.9 gram/dL 33.0-36. 0 L RED CELL DISTRIBUTION WIDTH (test code = RDW) 19.3 % 11.6-16. 2 H PLATELET COUNT (test code = PLT) 350 K/mm3 150-450 N MEAN PLATELET VOLUME (test code = MPV) 13.5 fL 6.7-11.0 H [id number] 01:11:00* Test Item Value Reference Range Interpretation Comments GLUBED (test code = GLUBED) 293 mg/dL 74-106 H Performed by certified carousel operator at [facility] [id number] 17:29:00* Test Item Value Reference Range Interpretation Comments GLUBED (test code = GLUBED) 218 mg/dL 74-106 H Performed by certified carousel operator at [facility] [id number] 11:23:00* Test Item Value Reference Range Interpretation Comments GLUBED (test code = GLUBED) 193 mg/dL 74-106 H Performed by certified carousel operator at [facility] - XR CHEST 1 [id number] 07:32:00 FAX: Andrew Guerra [phone] [place]: St: ADM FAX: Josh Roldan MD [phone] FAX: Kevin Bass MD [phone] Name: DAYANA RICHARDSON [facility] : 1960 Age/S: 59/F [address] Unit #: [id number] Loc: V[address] [place] [address] Phys: Andrew Guerra Acct: [id number] Dis Date: Status: ADM IN ONE #: [phone] Exam Date: 09/09/2019 0435 FAX #: [phone] Reason: updated pulm view EXAMS: CPT CODE: [id number] XR CHEST 1 V 30265 REASON FOR EXAM: updated pulm view Exam Order Date: 09/09/2019 5:00 AM Ordering Margaret: SOHAN Roberts PROCEDURE: - XR CHEST 1 V COMPARISON: Frontal chest x-ray the previous morning FINDINGS: Right lung base opacity with blunting of the right costop hrenic recess as worsened from the previous exam. There is also mild subse gmental atelectasis in the left lung base that is unchanged. Remainder of the lungs are clear. Cardiomediastinal silhouette is midline and normal in size. Degenerative changes in the shoulders and spi ne appear similar to the previous study. Enteric suction tube and surgical clips in the upper abdomen are unchanged. IMPRESSION: Worsening opacification of the right lung base may represent any co mbination of worsening pleural effusion, atelectasis, and pneumonia. Location: [facility] Electronically Signed by Klaus Wylie MD on 08/23 at 0732 Reported and signed by: Klaus Wylie MD CC: Andrew Guerra; Josh Roldan MD; Kevin Veronica MD Technologist: Robert Washington RT(R) Trnscrd Date/Time/By: (0732) : By: [email or web address] Orig Print D/T: S: 09/09/2019 (0723) PAGE 1 Signed Report [id number] 06:42:00* Test Item Value Reference Range Interpretation Comments GLUBED (test code = GLUBED) 136 mg/dL 74-106 H Performed by certified carousel operator at [facility] CBC W/O [id number] 02:48:00* Test Item Value Reference Range Interpretation Comments WHITE BLOOD CELL (test code = WBC) 31.1 K/mm3 4.5-12.5 H RED BLOOD CELL (test code = RBC) 3.70 mill/mm3 3.7-5.2 N HEMOGLOBIN (test code = HGB) 10.0 gram/dL 11.5-15.5 L HEMATOCRIT (test code = HCT) 33.0 % 36.0-46.0 L MEAN CELL VOLUME (test code = MCV) 89.2 fL 80-98 N MEAN CELL HGB (test code = MCH) 27.0 picogram 27.0-33.0 N MEAN CELL HGB CONCETRATION (test code = MCHC) 30.3 gram/dL 33.0-36. 0 L RED CELL DISTRIBUTION WIDTH (test code = RDW) 19.1 % 11.6-16. 2 H PLATELET COUNT (test code = PLT) 398 K/mm3 150-450 N MEAN PLATELET VOLUME (test code = MPV) 12.8 fL 6.7-11.0 H BASIC METABOLIC [id number] 02:38:00* Test Item Value Reference Range Interpretation Comments SODIUM (test code = NA) 142 mmol/L 136-145 N POTASSIUM (test code = K) 3.8 mmol/L 3.5-5.1 N CHLORIDE (test code = CL) 98.0 mmol/L 98-107 N CARBON DIOXIDE (test code = CO2) 41.0 mmol/L 21-32 H ANION GAP (test code = GAP) 6.8 10-20 L GLUCOSE (test code = GLU) 110 mg/dL 74-106 H BLOOD UREA NITROGEN (test code = BUN) 20 mg/dL 7-18 H GLOMERULAR FILTRATION RATE (test code = GFR) > 60 mL/min >=60 Estimated GFR by using Modified MDRD formula.Chronic kidney disease is defined as either kidney damageor GFR <60 mL/min/1.73 m2 for >3 months. CREATININE (test code = CREAT) 0.70 mg/dL 0.55-1.02 N Note change in reference range due to change in reagent. BUN/CREATININE RATIO (test code = BUN/CREA) 28.6 10-20 H CALCIUM (test code = CA) 9.0 mg/dL 8.5-10.1 N [id number] 02:38:00* Test Item Value Reference Range Interpretation Comments MAGNESIUM (test code = MAG) 1.9 mg/dL 1.8-2.4 N BASIC METABOLIC [id number] 02:34:00* Test Item Value Reference Range Interpretation Comments SODIUM (test code = NA) 142 mmol/L 136-145 N POTASSIUM (test code = K) 3.8 mmol/L 3.5-5.1 N CHLORIDE (test code = CL) 98.0 mmol/L 98-107 N CARBON DIOXIDE (test code = CO2) mmol/L 21-32 ANION GAP (test code = GAP) 10-20 GLUCOSE (test code = GLU) mg/dL 74-106 BLOOD UREA NITROGEN (test code = BUN) mg/dL 7-18 GLOMERULAR FILTRATION RATE (test code = GFR) mL/min >=60 CREATININE (test code = CREAT) mg/dL 0.55-1.02 BUN/CREATININE RATIO (test code = BUN/CREA) 10-20 CALCIUM (test code = CA) mg/dL 8.5-10.1 [id number] 02:34:00* Test Item Value Reference Range Interpretation Comments MAGNESIUM (test code = MAG) mg/dL 1.8-2.4 [id number] 22:33:00* Test Item Value Reference Range Interpretation Comments GLUBED (test code = GLUBED) 160 mg/dL 74-106 H Performed by certified carousel operator at [facility] [id number] 17:26:00* Test Item Value Reference Range Interpretation Comments GLUBED (test code = GLUBED) 252 mg/dL 74-106 H Performed by certified carousel operator at [facility] [id number] 13:50:00* Test Item Value Reference Range Interpretation Comments GLUBED (test code = GLUBED) 303 mg/dL 74-106 H Performed by certified carousel operator at [facility] - XR CHEST 1 [id number] 06:20:00 FAX: Andrew Guerra [phone] [place]: St: ADM FAX: Josh Roldan MD [phone] FAX: Kevin Bass MD [phone] Name: DAYANA RICHARDSON [facility] : 1960 Age/S: 59/F [address] [facility] Unit #: [id number] Loc: V[address] [address] Phys: Andrew Guerra Acct: [id number] Dis Date: Status: ADM IN ONE #: [phone] Exam Date: 09/08/2019443 FAX #: [phone] Reason: updated pulm view EXAMS: CPT CODE: [id number] XR CHEST 1 V 54439 CLINICAL HISTO RY: Respiratory failure TECHNIQUE: AP chest x-ray CO MPARISON: Previous day. IMPRESSION: No signifi cant interval change. Patchy right basilar consolidation. No pleural eff usion. Normal heart size. Atherosclerotic vascular calcification of the thoracic aorta. NG tube. LOCATION: [facility] at 0620 Reported and si gned by: Steph Gray D.O. CC: Andrew Guerra; Josh Roldan MD; Kevin Veronica MD Technologist: KEVIN BRAVO, RT(R) Trnscrd Date/Time/By: 09/08/2019 (0620) : By: [email or web address] Orig Print D/T: S: 09/08/2019 (8619) PAGE 1 Signed Report [id number] 05:24:00* Test Item Value Reference Range Interpretation Comments GLUBED (test code = GLUBED) 291 mg/dL 74-106 H Performed by certified carousel operator at [facility] BASIC METABOLIC [id number] 02:38:00* Test Item Value Reference Range Interpretation Comments SODIUM (test code = NA) 142 mmol/L 136-145 N POTASSIUM (test code = K) 4.2 mmol/L 3.5-5.1 N CHLORIDE (test code = CL) 96.0 mmol/L 98-107 L CARBON DIOXIDE (test code = CO2) 42.0 mmol/L 21-32 H ANION GAP (test code = GAP) 8.2 10-20 L GLUCOSE (test code = GLU) 332 mg/dL 74-106 H BLOOD UREA NITROGEN (test code = BUN) 20 mg/dL 7-18 H GLOMERULAR FILTRATION RATE (test code = GFR) > 60 mL/min >=60 Estimated GFR by using Modified MDRD formula.Chronic kidney disease is defined as either kidney damageor GFR <60 mL/min/1.73 m2 for >3 months. CREATININE (test code = CREAT) 0.80 mg/dL 0.55-1.02 N Note change in reference range due to change in reagent. BUN/CREATININE RATIO (test code = BUN/CREA) 25.0 10-20 H CALCIUM (test code = CA) 8.6 mg/dL 8.5-10.1 N [id number] 02:38:00* Test Item Value Reference Range Interpretation Comments MAGNESIUM (test code = MAG) 1.6 mg/dL 1.8-2.4 L BASIC METABOLIC [id number] 02:33:00* Test Item Value Reference Range Interpretation Comments SODIUM (test code = NA) 142 mmol/L 136-145 N POTASSIUM (test code = K) 4.2 mmol/L 3.5-5.1 N CHLORIDE (test code = CL) 96.0 mmol/L 98-107 L CARBON DIOXIDE (test code = CO2) mmol/L 21-32 ANION GAP (test code = GAP) 10-20 GLUCOSE (test code = GLU) mg/dL 74-106 BLOOD UREA NITROGEN (test code = BUN) mg/dL 7-18 GLOMERULAR FILTRATION RATE (test code = GFR) mL/min >=60 CREATININE (test code = CREAT) mg/dL 0.55-1.02 BUN/CREATININE RATIO (test code = BUN/CREA) 10-20 CALCIUM (test code = CA) mg/dL 8.5-10.1 [id number] 02:33:00* Test Item Value Reference Range Interpretation Comments MAGNESIUM (test code = MAG) mg/dL 1.8-2.4 CBC W/O [id number] 02:20:00* Test Item Value Reference Range Interpretation Comments WHITE BLOOD CELL (test code = WBC) 20.9 K/mm3 4.5-12.5 H RED BLOOD CELL (test code = RBC) 3.33 mill/mm3 3.7-5.2 L HEMOGLOBIN (test code = HGB) 9.0 gram/dL 11.5-15.5 L HEMATOCRIT (test code = HCT) 29.7 % 36.0-46.0 L MEAN CELL VOLUME (test code = MCV) 89.2 fL 80-98 N MEAN CELL HGB (test code = MCH) 27.0 picogram 27.0-33.0 N MEAN CELL HGB CONCETRATION (test code = MCHC) 30.3 gram/dL 33.0-36. 0 L RED CELL DISTRIBUTION WIDTH (test code = RDW) 18.6 % 11.6-16. 2 H PLATELET COUNT (test code = PLT) 392 K/mm3 150-450 N MEAN PLATELET VOLUME (test code = MPV) 13.2 fL 6.7-11.0 H [id number] 00:30:00* Test Item Value Reference Range Interpretation Comments GLUBED (test code = GLUBED) 307 mg/dL 74-106 H Performed by certified carousel operator at [facility] [id number] 20:14:00* Test Item Value Reference Range Interpretation Comments GLUBED (test code = GLUBED) 282 mg/dL 74-106 H Performed by certified carousel operator at [facility] [id number] 17:28:00* Test Item Value Reference Range Interpretation Comments GLUBED (test code = GLUBED) 272 mg/dL 74-106 H Performed by certified carousel operator at [facility] [id number] 13:52:00* Test Item Value Reference Range Interpretation Comments GLUBED (test code = GLUBED) 236 mg/dL 74-106 H Performed by certified carousel operator at [facility] - XR CHEST 1 [id number] 06:15:00 FAX: Andrew Guerra [phone] [place]: St: ADM FAX: Josh Roldan MD [phone] FAX: Kevin Bass MD [phone] Name: DAYANA RICHARDSON [facility] : 1960 Age/S: 59/F [address] [facility] Unit #: [id number] Loc: [address] [address] Phys: Andrew Guerra Acct: [id number] Dis Date: Status: ADM IN ONE #: [phone] Exam Date: 09/07/2019 0538 FAX #: [phone] Reason: updated pulm view EXAMS: CPT CODE: [id number] XR CHEST 1 V 21099 CLINICAL HISTO RY: Respiratory failure, pneumonia, sepsis TECHNIQUE: AP chest x-r ay COMPARISON: Previous day. IMPRESSION: Mildly worse right basilar atelectasis/consolidation. No pleural effusion. Normal heart size. Atherosclerotic vascular calcification of the thoracic aorta. NG tube. LOCATION: at 0615 Reported and signed by: Steph Gray D.O. CC: Andrew Guerra; Josh Roldan MD; Kevin Jaquez MD Technologist: CAMERON BOONE JR Trnscrd Date/Time/By: 09/07/2019 (0615) : By: [email or web address] Orig Luly nt D/T: S: 09/07/2019 (0618) PAGE 1 Signed Report [id number] 05:32:00* Test Item Value Reference Range Interpretation Comments GLUBED (test code = GLUBED) 237 mg/dL 74-106 H Performed by certified carousel operator at [facility] [id number] 03:26:00* Test Item Value Reference Range Interpretation Comments MAGNESIUM (test code = MAG) 1.5 mg/dL 1.8-2.4 L CBC W/O [id number] 02:12:00* Test Item Value Reference Range Interpretation Comments WHITE BLOOD CELL (test code = WBC) 20.7 K/mm3 4.5-12.5 H RED BLOOD CELL (test code = RBC) 3.17 mill/mm3 3.7-5.2 L HEMOGLOBIN (test code = HGB) 8.6 gram/dL 11.5-15.5 L HEMATOCRIT (test code = HCT) 28.5 % 36.0-46.0 L MEAN CELL VOLUME (test code = MCV) 89.9 fL 80-98 N MEAN CELL HGB (test code = MCH) 27.1 picogram 27.0-33.0 N MEAN CELL HGB CONCETRATION (test code = MCHC) 30.2 gram/dL 33.0-36. 0 L RED CELL DISTRIBUTION WIDTH (test code = RDW) 18.2 % 11.6-16. 2 H PLATELET COUNT (test code = PLT) 369 K/mm3 150-450 N MEAN PLATELET VOLUME (test code = MPV) 13.0 fL 6.7-11.0 H BASIC METABOLIC [id number] 01:52:00* Test Item Value Reference Range Interpretation Comments SODIUM (test code = NA) 139 mmol/L 136-145 N POTASSIUM (test code = K) 4.2 mmol/L 3.5-5.1 N CHLORIDE (test code = CL) 97.0 mmol/L 98-107 L CARBON DIOXIDE (test code = CO2) 36.0 mmol/L 21-32 H ANION GAP (test code = GAP) 10.2 10-20 N GLUCOSE (test code = GLU) 315 mg/dL 74-106 H BLOOD UREA NITROGEN (test code = BUN) 17 mg/dL 7-18 N GLOMERULAR FILTRATION RATE (test code = GFR) > 60 mL/min >=60 Estimated GFR by using Modified MDRD formula.Chronic kidney disease is defined as either kidney damageor GFR <60 mL/min/1.73 m2 for >3 months. CREATININE (test code = CREAT) 0.70 mg/dL 0.55-1.02 N Note change in reference range due to change in reagent. BUN/CREATININE RATIO (test code = BUN/CREA) 24.3 10-20 H CALCIUM (test code = CA) 9.1 mg/dL 8.5-10.1 N BASIC METABOLIC [id number] 01:41:00* Test Item Value Reference Range Interpretation Comments SODIUM (test code = NA) 139 mmol/L 136-145 N POTASSIUM (test code = K) 4.2 mmol/L 3.5-5.1 N CHLORIDE (test code = CL) 97.0 mmol/L 98-107 L CARBON DIOXIDE (test code = CO2) mmol/L 21-32 ANION GAP (test code = GAP) 10-20 GLUCOSE (test code = GLU) mg/dL 74-106 BLOOD UREA NITROGEN (test code = BUN) mg/dL 7-18 GLOMERULAR FILTRATION RATE (test code = GFR) mL/min >=60 CREATININE (test code = CREAT) mg/dL 0.55-1.02 BUN/CREATININE RATIO (test code = BUN/CREA) 10-20 CALCIUM (test code = CA) mg/dL 8.5-10.1 LACTIC [id number] 01:41:00* Test Item Value Reference Range Interpretation Comments LACTIC ACID (test code = LACT) 0.9 mmol/L 0.4-1.9 N [id number] 00:22:00* Test Item Value Reference Range Interpretation Comments GLUBED (test code = GLUBED) 269 mg/dL 74-106 H Performed by certified carousel operator at [facility] [id number] 20:26:00* Test Item Value Reference Range Interpretation Comments GLUBED (test code = GLUBED) 264 mg/dL 74-106 H Performed by certified carousel operator at [facility] [id number] 17:14:00* Test Item Value Reference Range Interpretation Comments GLUBED (test code = GLUBED) 297 mg/dL 74-106 H Performed by certified carousel operator at [facility] [id number] 13:12:00* Test Item Value Reference Range Interpretation Comments GLUBED (test code = GLUBED) 271 mg/dL 74-106 H Performed by certified carousel operator at [facility] - XR CHEST 1 [id number] 06:35:00 FAX: Justo Kaplan [place]: B St: ADM FAX: Josh Roldan MD [phone] FAX: Kevin Bass MD [phone] Name: DAYANA RICHARDSON [facility] : 1960 Age/S: 59/F [address] [facility] Unit #: [id number] Loc: [address] [address] Phys: Justo Kaplan Acct: [id number] Dis Date: Status: ADM IN PH ONE #: [phone] Exam Date: 09/06/2019 0536 FAX #: [phone] Reason: respiratory failure EXAMS: CPT CODE: [id number] XR CHEST 1 V 99590 CLINICAL HISTO RY: respiratory failure TECHNIQUE: AP chest x-ray CO MPARISON: Previous day. IMPRESSION: Improved b ibasilar subsegmental atelectasis. No airspace consolidation or pleural effusion. Normal heart size. Atherosclerotic vascular calcification of t he thoracic aorta. NG tube. LOCATION: LP at 0635 Reported and signed by: Steph bianchi D.O. CC: Justo Kaplan; Josh Roldan MD; Fredy Veronica MD Technologist: CAMERON BOONE JR; Juliann Weiss Trnsc rd Date/Time/By: 09/06/2019 (0635) : By: [email or web address] Orig Print D/T: S: 09/06/2019 (0608) PAGE 1 Signed R eport [id number] 06:18:00* Test Item Value Reference Range Interpretation Comments GLUBED (test code = GLUBED) 136 mg/dL 74-106 H Performed by certified carousel operator at [facility] [id number] 05:39:00* Test Item Value Reference Range Interpretation Comments GLUBED (test code = GLUBED) 231 mg/dL 74-106 H Performed by certified carousel operator at [facility] CALCIUM [id number] 03:00:00* Test Item Value Reference Range Interpretation Comments CALCIUM IONIZED (test code = DNIAH) 1.27 mmol/L 1.12-1.32 N CBC W/MANUAL [id number] 02:41:00* Test Item Value Reference Range Interpretation Comments WHITE BLOOD CELL (test code = WBC) 23.2 K/mm3 4.5-12.5 H RED BLOOD CELL (test code = RBC) 3.38 mill/mm3 3.7-5.2 L HEMOGLOBIN (test code = HGB) 9.0 gram/dL 11.5-15.5 L HEMATOCRIT (test code = HCT) 30.6 % 36.0-46.0 L MEAN CELL VOLUME (test code = MCV) 90.5 fL 80-98 N MEAN CELL HGB (test code = MCH) 26.6 picogram 27.0-33.0 L MEAN CELL HGB CONCETRATION (test code = MCHC) 29.4 gram/dL 33.0-36. 0 L RED CELL DISTRIBUTION WIDTH (test code = RDW) 17.7 % 11.6-16. 2 H RED CELL DISTRIBUTION WIDTH SD (test code = RDW-SD) 56.2 fL 37 .0-51.0 H PLATELET COUNT (test code = PLT) 386 K/mm3 150-450 MEAN PLATELET VOLUME (test code = MPV) 12.7 fL 6.7-11.0 H NEUTROPHIL % (test code = NT%) 91.6 % 39.0-69.0 H IMMATURE GRANULOCYTE % (test code = IG%) 0.7 % 0.0-5.0 N LYMPHOCYTE % (test code = LY%) 3.7 % 25.0-55.0 L MONOCYTE % (test code = MO%) 3.8 % 0.0-10.0 N EOSINOPHIL % (test code = EO%) 0.0 % 0.0-5.0 N BASOPHIL % (test code = BA%) 0.2 % 0.0-1.0 N NUCLEATED RBC % (test code = NRBC%) 0.0 % 0-0 N NEUTROPHIL # (test code = NT#) 21.22 K/mm3 1.8-7.7 H IMMATURE GRANULOCYTE # (test code = IG#) 0.17 x10 3/uL 0-0.03 H LYMPHOCYTE # (test code = LY#) 0.86 K/mm3 1.0-5.0 L MONOCYTE # (test code = MO#) 0.88 K/mm3 0-0.8 H EOSINOPHIL # (test code = EO#) 0.00 K/mm3 0.0-0.5 N BASOPHIL # (test code = BA#) 0.05 K/mm3 0.0-0.2 N NUCLEATED RBC # (test code = NRBC#) 0.00 K/mm3 0.0-0.1 N MANUAL DIFF REQUIRED (test code = MDIFF) DIFF NEEDED STAIN ACCEPTABILITY (test code = STN ACCEPTABLE) STAIN ACCEPTABLE TOTAL CELLS COUNTED (test code = TCC) 115 #CELLS SEGMENTED NEUTROPHILS (test code = SEG) 94.7 % 39-69 H BAND NEUTROPHIL (test code = BAND) 0 % 0-10 N LYMPHOCYTE (test code = LYMPH) 1.3 % 25-55 L REACTIVE LYMPH (test code = RELYMPH) 0 % MONOCYTE (test code = MON) 3.5 % 0-10 N EOSINOPHIL (test code = EOS) 0 % 0.0-5.0 N BASOPHIL (test code = BASO) 0.5 % 0-1.0 N METAMYELOCYTE (test code = META) 0 % 0-0 N MYELOCYTE (test code = MYELO) 0 % 0.0-0.0 N PROMYELOCYTE (test code = PROM) 0 % 0-0 N POLYCHROMASIA (test code = POLC) 1+ HYPOCHROMIA (test code = HYPO) 2+ POIKILOCYTOSIS (test code = POIK) 2+ ANISOCYTOSIS (test code = ANISO) 2+ MACROCYTOSIS (test code = MACR) 1+ TARGET CELLS (test code = TGT) 1+ OVALOCYTES (test code = OVAL) 1+ PLATELET ESTIMATE (test code = PLTEST) ADEQUATE PLATELET MORPHOLOGY (test code = PLTMORPH) NORMAL IMMATURE FORMS (test code = IMMAT) 0 % 0-0 N BASIC METABOLIC [id number] 02:28:00* Test Item Value Reference Range Interpretation Comments SODIUM (test code = NA) 140 mmol/L 136-145 N POTASSIUM (test code = K) 4.1 mmol/L 3.5-5.1 N CHLORIDE (test code = CL) 98.0 mmol/L 98-107 N CARBON DIOXIDE (test code = CO2) 37.0 mmol/L 21-32 H ANION GAP (test code = GAP) 9.1 10-20 L GLUCOSE (test code = GLU) 243 mg/dL 74-106 H BLOOD UREA NITROGEN (test code = BUN) 17 mg/dL 7-18 N GLOMERULAR FILTRATION RATE (test code = GFR) > 60 mL/min >=60 Estimated GFR by using Modified MDRD formula.Chronic kidney disease is defined as either kidney damageor GFR <60 mL/min/1.73 m2 for >3 months. CREATININE (test code = CREAT) 0.70 mg/dL 0.55-1.02 N Note change in reference range due to change in reagent. BUN/CREATININE RATIO (test code = BUN/CREA) 24.3 10-20 H CALCIUM (test code = CA) 9.3 mg/dL 8.5-10.1 N [id number] 02:28:00* Test Item Value Reference Range Interpretation Comments PHOSPHORUS (test code = PHOS) 3.2 mg/dL 2.5-4.9 N [id number] 02:28:00* Test Item Value Reference Range Interpretation Comments MAGNESIUM (test code = MAG) 1.7 mg/dL 1.8-2.4 L BASIC METABOLIC [id number] 02:21:00* Test Item Value Reference Range Interpretation Comments SODIUM (test code = NA) 140 mmol/L 136-145 N POTASSIUM (test code = K) 4.1 mmol/L 3.5-5.1 N CHLORIDE (test code = CL) 98.0 mmol/L 98-107 N CARBON DIOXIDE (test code = CO2) mmol/L 21-32 ANION GAP (test code = GAP) 10-20 GLUCOSE (test code = GLU) mg/dL 74-106 BLOOD UREA NITROGEN (test code = BUN) mg/dL 7-18 GLOMERULAR FILTRATION RATE (test code = GFR) mL/min >=60 CREATININE (test code = CREAT) mg/dL 0.55-1.02 BUN/CREATININE RATIO (test code = BUN/CREA) 10-20 CALCIUM (test code = CA) mg/dL 8.5-10.1 [id number] 02:21:00* Test Item Value Reference Range Interpretation Comments PHOSPHORUS (test code = PHOS) mg/dL 2.5-4.9 [id number] 02:21:00* Test Item Value Reference Range Interpretation Comments MAGNESIUM (test code = MAG) mg/dL 1.8-2.4 CBC W/MANUAL [id number] 02:06:00* Test Item Value Reference Range Interpretation Comments WHITE BLOOD CELL (test code = WBC) 23.2 K/mm3 4.5-12.5 H RED BLOOD CELL (test code = RBC) 3.38 mill/mm3 3.7-5.2 L HEMOGLOBIN (test code = HGB) 9.0 gram/dL 11.5-15.5 L HEMATOCRIT (test code = HCT) 30.6 % 36.0-46.0 L MEAN CELL VOLUME (test code = MCV) 90.5 fL 80-98 N MEAN CELL HGB (test code = MCH) 26.6 picogram 27.0-33.0 L MEAN CELL HGB CONCETRATION (test code = MCHC) 29.4 gram/dL 33.0-36. 0 L RED CELL DISTRIBUTION WIDTH (test code = RDW) 17.7 % 11.6-16. 2 H RED CELL DISTRIBUTION WIDTH SD (test code = RDW-SD) 56.2 fL 37 .0-51.0 H PLATELET COUNT (test code = PLT) 386 K/mm3 150-450 MEAN PLATELET VOLUME (test code = MPV) 12.7 fL 6.7-11.0 H NEUTROPHIL % (test code = NT%) 91.6 % 39.0-69.0 H IMMATURE GRANULOCYTE % (test code = IG%) 0.7 % 0.0-5.0 N LYMPHOCYTE % (test code = LY%) 3.7 % 25.0-55.0 L MONOCYTE % (test code = MO%) 3.8 % 0.0-10.0 N EOSINOPHIL % (test code = EO%) 0.0 % 0.0-5.0 N BASOPHIL % (test code = BA%) 0.2 % 0.0-1.0 N NUCLEATED RBC % (test code = NRBC%) 0.0 % 0-0 N NEUTROPHIL # (test code = NT#) 21.22 K/mm3 1.8-7.7 H IMMATURE GRANULOCYTE # (test code = IG#) 0.17 x10 3/uL 0-0.03 H LYMPHOCYTE # (test code = LY#) 0.86 K/mm3 1.0-5.0 L MONOCYTE # (test code = MO#) 0.88 K/mm3 0-0.8 H EOSINOPHIL # (test code = EO#) 0.00 K/mm3 0.0-0.5 N BASOPHIL # (test code = BA#) 0.05 K/mm3 0.0-0.2 N NUCLEATED RBC # (test code = NRBC#) 0.00 K/mm3 0.0-0.1 N MANUAL DIFF REQUIRED (test code = MDIFF) DIFF NEEDED STAIN ACCEPTABILITY (test code = STN ACCEPTABLE) TOTAL CELLS COUNTED (test code = TCC) #CELLS SEGMENTED NEUTROPHILS (test code = SEG) % 39-69 LYMPHOCYTE (test code = LYMPH) % 25-55 MONOCYTE (test code = MON) % 0-10 EOSINOPHIL (test code = EOS) % 0.0-5.0 CABOT RINGS (test code = CAB) MORPHOLOGY COMMENT (test code = MOC) PLATELET ESTIMATE (test code = PLTEST) PLATELET MORPHOLOGY (test code = PLTMORPH) CBC W/MANUAL [id number] 02:06:00* Test Item Value Reference Range Interpretation Comments WHITE BLOOD CELL (test code = WBC) 23.2 K/mm3 4.5-12.5 H RED BLOOD CELL (test code = RBC) 3.38 mill/mm3 3.7-5.2 L HEMOGLOBIN (test code = HGB) 9.0 gram/dL 11.5-15.5 L HEMATOCRIT (test code = HCT) 30.6 % 36.0-46.0 L MEAN CELL VOLUME (test code = MCV) 90.5 fL 80-98 N MEAN CELL HGB (test code = MCH) 26.6 picogram 27.0-33.0 L MEAN CELL HGB CONCETRATION (test code = MCHC) 29.4 gram/dL 33.0-36. 0 L RED CELL DISTRIBUTION WIDTH (test code = RDW) 17.7 % 11.6-16. 2 H RED CELL DISTRIBUTION WIDTH SD (test code = RDW-SD) 56.2 fL 37 .0-51.0 H PLATELET COUNT (test code = PLT) 386 K/mm3 150-450 MEAN PLATELET VOLUME (test code = MPV) 12.7 fL 6.7-11.0 H NEUTROPHIL % (test code = NT%) 91.6 % 39.0-69.0 H IMMATURE GRANULOCYTE % (test code = IG%) 0.7 % 0.0-5.0 N LYMPHOCYTE % (test code = LY%) 3.7 % 25.0-55.0 L MONOCYTE % (test code = MO%) 3.8 % 0.0-10.0 N EOSINOPHIL % (test code = EO%) 0.0 % 0.0-5.0 N BASOPHIL % (test code = BA%) 0.2 % 0.0-1.0 N NUCLEATED RBC % (test code = NRBC%) 0.0 % 0-0 N NEUTROPHIL # (test code = NT#) 21.22 K/mm3 1.8-7.7 H IMMATURE GRANULOCYTE # (test code = IG#) 0.17 x10 3/uL 0-0.03 H LYMPHOCYTE # (test code = LY#) 0.86 K/mm3 1.0-5.0 L MONOCYTE # (test code = MO#) 0.88 K/mm3 0-0.8 H EOSINOPHIL # (test code = EO#) 0.00 K/mm3 0.0-0.5 N BASOPHIL # (test code = BA#) 0.05 K/mm3 0.0-0.2 N NUCLEATED RBC # (test code = NRBC#) 0.00 K/mm3 0.0-0.1 N MANUAL DIFF REQUIRED (test code = MDIFF) DIFF NEEDED STAIN ACCEPTABILITY (test code = STN ACCEPTABLE) TOTAL CELLS COUNTED (test code = TCC) #CELLS SEGMENTED NEUTROPHILS (test code = SEG) % 39-69 LYMPHOCYTE (test code = LYMPH) % 25-55 MONOCYTE (test code = MON) % 0-10 EOSINOPHIL (test code = EOS) % 0.0-5.0 CABOT RINGS (test code = CAB) MORPHOLOGY COMMENT (test code = MOC) PLATELET ESTIMATE (test code = PLTEST) PLATELET MORPHOLOGY (test code = PLTMORPH) CBC W/MANUAL [id number] 02:06:00* Test Item Value Reference Range Interpretation Comments WHITE BLOOD CELL (test code = WBC) 23.2 K/mm3 4.5-12.5 H RED BLOOD CELL (test code = RBC) 3.38 mill/mm3 3.7-5.2 L HEMOGLOBIN (test code = HGB) 9.0 gram/dL 11.5-15.5 L HEMATOCRIT (test code = HCT) 30.6 % 36.0-46.0 L MEAN CELL VOLUME (test code = MCV) 90.5 fL 80-98 N MEAN CELL HGB (test code = MCH) 26.6 picogram 27.0-33.0 L MEAN CELL HGB CONCETRATION (test code = MCHC) 29.4 gram/dL 33.0-36. 0 L RED CELL DISTRIBUTION WIDTH (test code = RDW) 17.7 % 11.6-16. 2 H RED CELL DISTRIBUTION WIDTH SD (test code = RDW-SD) 56.2 fL 37 .0-51.0 H PLATELET COUNT (test code = PLT) 386 K/mm3 150-450 MEAN PLATELET VOLUME (test code = MPV) 12.7 fL 6.7-11.0 H NEUTROPHIL % (test code = NT%) 91.6 % 39.0-69.0 H IMMATURE GRANULOCYTE % (test code = IG%) 0.7 % 0.0-5.0 N LYMPHOCYTE % (test code = LY%) 3.7 % 25.0-55.0 L MONOCYTE % (test code = MO%) 3.8 % 0.0-10.0 N EOSINOPHIL % (test code = EO%) 0.0 % 0.0-5.0 N BASOPHIL % (test code = BA%) 0.2 % 0.0-1.0 N NUCLEATED RBC % (test code = NRBC%) 0.0 % 0-0 N NEUTROPHIL # (test code = NT#) 21.22 K/mm3 1.8-7.7 H IMMATURE GRANULOCYTE # (test code = IG#) 0.17 x10 3/uL 0-0.03 H LYMPHOCYTE # (test code = LY#) 0.86 K/mm3 1.0-5.0 L MONOCYTE # (test code = MO#) 0.88 K/mm3 0-0.8 H EOSINOPHIL # (test code = EO#) 0.00 K/mm3 0.0-0.5 N BASOPHIL # (test code = BA#) 0.05 K/mm3 0.0-0.2 N NUCLEATED RBC # (test code = NRBC#) 0.00 K/mm3 0.0-0.1 N MANUAL DIFF REQUIRED (test code = MDIFF) DIFF NEEDED STAIN ACCEPTABILITY (test code = STN ACCEPTABLE) TOTAL CELLS COUNTED (test code = TCC) #CELLS SEGMENTED NEUTROPHILS (test code = SEG) % 39-69 LYMPHOCYTE (test code = LYMPH) % 25-55 MONOCYTE (test code = MON) % 0-10 EOSINOPHIL (test code = EOS) % 0.0-5.0 MORPHOLOGY COMMENT (test code = MOC) PLATELET ESTIMATE (test code = PLTEST) PLATELET MORPHOLOGY (test code = PLTMORPH) CBC W/MANUAL [id number] 02:06:00* Test Item Value Reference Range Interpretation Comments WHITE BLOOD CELL (test code = WBC) 23.2 K/mm3 4.5-12.5 H RED BLOOD CELL (test code = RBC) 3.38 mill/mm3 3.7-5.2 L HEMOGLOBIN (test code = HGB) 9.0 gram/dL 11.5-15.5 L HEMATOCRIT (test code = HCT) 30.6 % 36.0-46.0 L MEAN CELL VOLUME (test code = MCV) 90.5 fL 80-98 N MEAN CELL HGB (test code = MCH) 26.6 picogram 27.0-33.0 L MEAN CELL HGB CONCETRATION (test code = MCHC) 29.4 gram/dL 33.0-36. 0 L RED CELL DISTRIBUTION WIDTH (test code = RDW) 17.7 % 11.6-16. 2 H RED CELL DISTRIBUTION WIDTH SD (test code = RDW-SD) 56.2 fL 37 .0-51.0 H PLATELET COUNT (test code = PLT) 386 K/mm3 150-450 MEAN PLATELET VOLUME (test code = MPV) 12.7 fL 6.7-11.0 H NEUTROPHIL % (test code = NT%) 91.6 % 39.0-69.0 H IMMATURE GRANULOCYTE % (test code = IG%) 0.7 % 0.0-5.0 N LYMPHOCYTE % (test code = LY%) 3.7 % 25.0-55.0 L MONOCYTE % (test code = MO%) 3.8 % 0.0-10.0 N EOSINOPHIL % (test code = EO%) 0.0 % 0.0-5.0 N BASOPHIL % (test code = BA%) 0.2 % 0.0-1.0 N NUCLEATED RBC % (test code = NRBC%) 0.0 % 0-0 N NEUTROPHIL # (test code = NT#) 21.22 K/mm3 1.8-7.7 H IMMATURE GRANULOCYTE # (test code = IG#) 0.17 x10 3/uL 0-0.03 H LYMPHOCYTE # (test code = LY#) 0.86 K/mm3 1.0-5.0 L MONOCYTE # (test code = MO#) 0.88 K/mm3 0-0.8 H EOSINOPHIL # (test code = EO#) 0.00 K/mm3 0.0-0.5 N BASOPHIL # (test code = BA#) 0.05 K/mm3 0.0-0.2 N NUCLEATED RBC # (test code = NRBC#) 0.00 K/mm3 0.0-0.1 N MANUAL DIFF REQUIRED (test code = MDIFF) DIFF NEEDED STAIN ACCEPTABILITY (test code = STN ACCEPTABLE) TOTAL CELLS COUNTED (test code = TCC) #CELLS SEGMENTED NEUTROPHILS (test code = SEG) % 39-69 LYMPHOCYTE (test code = LYMPH) % 25-55 MONOCYTE (test code = MON) % 0-10 MORPHOLOGY COMMENT (test code = MOC) PLATELET ESTIMATE (test code = PLTEST) PLATELET MORPHOLOGY (test code = PLTMORPH) CBC W/MANUAL [id number] 02:06:00* Test Item Value Reference Range Interpretation Comments WHITE BLOOD CELL (test code = WBC) 23.2 K/mm3 4.5-12.5 H RED BLOOD CELL (test code = RBC) 3.38 mill/mm3 3.7-5.2 L HEMOGLOBIN (test code = HGB) 9.0 gram/dL 11.5-15.5 L HEMATOCRIT (test code = HCT) 30.6 % 36.0-46.0 L MEAN CELL VOLUME (test code = MCV) 90.5 fL 80-98 N MEAN CELL HGB (test code = MCH) 26.6 picogram 27.0-33.0 L MEAN CELL HGB CONCETRATION (test code = MCHC) 29.4 gram/dL 33.0-36. 0 L RED CELL DISTRIBUTION WIDTH (test code = RDW) 17.7 % 11.6-16. 2 H RED CELL DISTRIBUTION WIDTH SD (test code = RDW-SD) 56.2 fL 37 .0-51.0 H PLATELET COUNT (test code = PLT) 386 K/mm3 150-450 MEAN PLATELET VOLUME (test code = MPV) 12.7 fL 6.7-11.0 H NEUTROPHIL % (test code = NT%) 91.6 % 39.0-69.0 H IMMATURE GRANULOCYTE % (test code = IG%) 0.7 % 0.0-5.0 N LYMPHOCYTE % (test code = LY%) 3.7 % 25.0-55.0 L MONOCYTE % (test code = MO%) 3.8 % 0.0-10.0 N EOSINOPHIL % (test code = EO%) 0.0 % 0.0-5.0 N BASOPHIL % (test code = BA%) 0.2 % 0.0-1.0 N NUCLEATED RBC % (test code = NRBC%) 0.0 % 0-0 N NEUTROPHIL # (test code = NT#) 21.22 K/mm3 1.8-7.7 H IMMATURE GRANULOCYTE # (test code = IG#) 0.17 x10 3/uL 0-0.03 H LYMPHOCYTE # (test code = LY#) 0.86 K/mm3 1.0-5.0 L MONOCYTE # (test code = MO#) 0.88 K/mm3 0-0.8 H EOSINOPHIL # (test code = EO#) 0.00 K/mm3 0.0-0.5 N BASOPHIL # (test code = BA#) 0.05 K/mm3 0.0-0.2 N NUCLEATED RBC # (test code = NRBC#) 0.00 K/mm3 0.0-0.1 N MANUAL DIFF REQUIRED (test code = MDIFF) DIFF NEEDED STAIN ACCEPTABILITY (test code = STN ACCEPTABLE) TOTAL CELLS COUNTED (test code = TCC) #CELLS SEGMENTED NEUTROPHILS (test code = SEG) % 39-69 LYMPHOCYTE (test code = LYMPH) % 25-55 MONOCYTE (test code = MON) % 0-10 EOSINOPHIL (test code = EOS) % 0.0-5.0 CABOT RINGS (test code = CAB) MORPHOLOGY COMMENT (test code = MOC) PLATELET ESTIMATE (test code = PLTEST) PLATELET MORPHOLOGY (test code = PLTMORPH) [id number] 00:09:00* Test Item Value Reference Range Interpretation Comments GLUBED (test code = GLUBED) 217 mg/dL 74-106 H Performed by certified carousel operator at [facility] - XR CHEST 1 [id number] 21:59:00 FAX: Josh Roldan MD [phone] [place]: St: ADM FAX: Kevin Bass MD [phone] FAX: Nely Gray MD Name: DAYANA RICHARDSON [facility] : 1960 Age/S: 59/F [address] [facility] Unit #: [id number] Loc: [address] [address] Phys: Nely Gray MD Acct: [id number] Dis Date: Status: ADM IN ONE #: [phone] Exam Date: 09/05/20191927 FAX #: [phone] Reason: VERIFY NGT PLACEMENT EXAMS: CPT CODE: [id number] XR CHEST 1 V 75813 EXAM: Chest x- ray, one view; INFORMATION: Sepsis; pneumonia; NG tube placement; IMPRESSION: 1. Well-positioned NG tube; its tip is in th e gastric corpus. 2. No significant change compared with the study obtai magui earlier today; persistent right basilar atelectasis; Location code: [facility] at 2159 Reported and signed by: Clif Laguna M.D. CC: Josh Roldan MD; Kevin Veronica MD; Nely Gray MD Technologist: FRANKI STEIN Trnscrd Date/Time/By: (2158) : By: Cesar Orig Print D/T: S: 09/05/2019 (2201) PAGE 1 Signed Report [id number] 19:57:00* Test Item Value Reference Range Interpretation Comments GLUBED (test code = GLUBED) 199 mg/dL 74-106 H Performed by certified carousel operator at [facility] [id number] 16:09:00* Test Item Value Reference Range Interpretation Comments GLUBED (test code = GLUBED) 256 mg/dL 74-106 H Performed by certified carousel operator at [facility] [id number] 11:25:00* Test Item Value Reference Range Interpretation Comments GLUBED (test code = GLUBED) 165 mg/dL 74-106 H Performed by certified carousel operator at [facility] CALCIUM [id number] 11:05:00* Test Item Value Reference Range Interpretation Comments CALCIUM IONIZED (test code = DINAH) 1.20 mmol/L 1.12-1.32 N - XR CHEST 1 [id number] 06:24:00 FAX: Justo Kaplan [place]: B St: ADM FAX: Josh Roldan MD [phone] FAX: Y Kevin Veronica MD [phone] Name: DAYANA RICHARDSON [facility] : 1960 Age/S: 59/F Saumya Hernandezncer [facility] Unit #: [id number] Loc: [place] [address] Phys: Justo Kaplan Acct: [id number] Dis Date: Status: ADM IN ONE #: [phone] Exam Date: 09/05/2019 0532 FAX #: [phone] Reason: respiratory failure EXAMS: CPT CODE: [id number] XR CHEST 1 V [id number] CLINICAL HISTO RY: respiratory failure TECHNIQUE: AP chest x-ray CO MPARISON: Previous day. IMPRESSION: Improved b ibasilar subsegmental atelectasis. No airspace consolidation or pleural effusion. Normal heart size. Atherosclerotic vascular calcification of t he thoracic aorta. NG tube. LOCATION: LP Electronically Signed by Steph Gray D.O. on 09/05 at 0624 Reported and signed by: Steph Gray D.O. CC: Justo Kaplan; Josh Roldan MD; Kevin Veronica MD Anne hnologist: CAMERON Weiss Trnscrd Date/T isaac/By: 09/05/2019 (0624) : By: [email or web address] Orig Print D/T: S: 0 (0693) PAGE 1 Signed Report [id number] 05:43:00* Test Item Value Reference Range Interpretation Comments GLUBED (test code = GLUBED) 208 mg/dL 74-106 H Performed by certified carousel operator at [facility] CBC W/AUTO [id number] 04:12:00* Test Item Value Reference Range Interpretation Comments WHITE BLOOD CELL (test code = WBC) 15.0 K/mm3 4.5-12.5 H RED BLOOD CELL (test code = RBC) 3.20 mill/mm3 3.7-5.2 L HEMOGLOBIN (test code = HGB) 8.5 gram/dL 11.5-15.5 L HEMATOCRIT (test code = HCT) 28.7 % 36.0-46.0 L MEAN CELL VOLUME (test code = MCV) 89.7 fL 80-98 N MEAN CELL HGB (test code = MCH) 26.6 picogram 27.0-33.0 L MEAN CELL HGB CONCETRATION (test code = MCHC) 29.6 gram/dL 33.0-36. 0 L RED CELL DISTRIBUTION WIDTH (test code = RDW) 17.4 % 11.6-16. 2 H RED CELL DISTRIBUTION WIDTH SD (test code = RDW-SD) 55.2 fL 37 .0-51.0 H PLATELET COUNT (test code = PLT) 304 K/mm3 150-450 N MEAN PLATELET VOLUME (test code = MPV) 12.9 fL 6.7-11.0 H NEUTROPHIL % (test code = NT%) 91.2 % 39.0-69.0 H IMMATURE GRANULOCYTE % (test code = IG%) 1.3 % 0.0-5.0 N LYMPHOCYTE % (test code = LY%) 4.7 % 25.0-55.0 L MONOCYTE % (test code = MO%) 2.1 % 0.0-10.0 N EOSINOPHIL % (test code = EO%) 0.3 % 0.0-5.0 N BASOPHIL % (test code = BA%) 0.4 % 0.0-1.0 N NUCLEATED RBC % (test code = NRBC%) 0.0 % 0-0 N NEUTROPHIL # (test code = NT#) 13.62 K/mm3 1.8-7.7 H IMMATURE GRANULOCYTE # (test code = IG#) 0.19 x10 3/uL 0-0.03 H LYMPHOCYTE # (test code = LY#) 0.71 K/mm3 1.0-5.0 L MONOCYTE # (test code = MO#) 0.32 K/mm3 0-0.8 N EOSINOPHIL # (test code = EO#) 0.05 K/mm3 0.0-0.5 N BASOPHIL # (test code = BA#) 0.06 K/mm3 0.0-0.2 N NUCLEATED RBC # (test code = NRBC#) 0.00 K/mm3 0.0-0.1 N MANUAL DIFF REQUIRED (test code = MDIFF) NO, ONLY SCAN NEEDED DIFFERENTIAL [id number] 04:12:00* Test Item Value Reference Range Interpretation Comments STAIN ACCEPTABILITY (test code = STN ACCEPTABLE) STAIN ACCEPTABLE HYPOCHROMIA (test code = HYPO) 2+ ANISOCYTOSIS (test code = ANISO) 1+ MACROCYTOSIS (test code = MACR) 1+ PLATELET ESTIMATE (test code = PLTEST) ADEQUATE PLATELET MORPHOLOGY (test code = PLTMORPH) SIZE VARIABLE COMPREHENSIVE METABOLIC [id number] 03:56:00* Test Item Value Reference Range Interpretation Comments SODIUM (test code = NA) 137 mmol/L 136-145 N POTASSIUM (test code = K) 4.1 mmol/L 3.5-5.1 N CHLORIDE (test code = CL) 98.0 mmol/L 98-107 N CARBON DIOXIDE (test code = CO2) 34.0 mmol/L 21-32 H ANION GAP (test code = GAP) 9.1 10-20 L GLUCOSE (test code = GLU) 219 mg/dL 74-106 H BLOOD UREA NITROGEN (test code = BUN) 13 mg/dL 7-18 N GLOMERULAR FILTRATION RATE (test code = GFR) > 60 mL/min >=60 Estimated GFR by using Modified MDRD formula.Chronic kidney disease is defined as either kidney damageor GFR <60 mL/min/1.73 m2 for >3 months. CREATININE (test code = CREAT) 0.70 mg/dL 0.55-1.02 N Note change in reference range due to change in reagent. BUN/CREATININE RATIO (test code = BUN/CREA) 18.6 10-20 N TOTAL PROTEIN (test code = PROT) 7.1 gram/dL 6.4-8.2 N ALBUMIN (test code = ALB) 2.2 g/dL 3.4-5.0 L GLOBULIN (test code = GLOB) 4.9 gram/dL 2.7-4.2 H ALBUMIN/GLOBULIN RATIO (test code = A/G) 0.5 0.75-1.50 L CALCIUM (test code = CA) 9.3 mg/dL 8.5-10.1 N BILIRUBIN TOTAL (test code = BILT) 0.30 mg/dL 0.0-1.0 N SGOT/AST (test code = AST) 17 IUnit/L 15-37 N SGPT/ALT (test code = ALT) 17 IUnit/L 12-78 N ALKALINE PHOSPHATASE TOTAL (test code = ALKP) 124 IUnit/L 45-117 H Note change in reference range due to change in reagent. [id number] 03:56:00* Test Item Value Reference Range Interpretation Comments PHOSPHORUS (test code = PHOS) 3.0 mg/dL 2.5-4.9 N [id number] 03:56:00* Test Item Value Reference Range Interpretation Comments MAGNESIUM (test code = MAG) 1.9 mg/dL 1.8-2.4 N COMPREHENSIVE METABOLIC [id number] 03:40:00* Test Item Value Reference Range Interpretation Comments SODIUM (test code = NA) 137 mmol/L 136-145 N POTASSIUM (test code = K) 4.1 mmol/L 3.5-5.1 N CHLORIDE (test code = CL) 98.0 mmol/L 98-107 N CARBON DIOXIDE (test code = CO2) mmol/L 21-32 ANION GAP (test code = GAP) 10-20 GLUCOSE (test code = GLU) mg/dL 74-106 BLOOD UREA NITROGEN (test code = BUN) mg/dL 7-18 GLOMERULAR FILTRATION RATE (test code = GFR) mL/min >=60 CREATININE (test code = CREAT) mg/dL 0.55-1.02 BUN/CREATININE RATIO (test code = BUN/CREA) 10-20 TOTAL PROTEIN (test code = PROT) gram/dL 6.4-8.2 ALBUMIN (test code = ALB) g/dL 3.4-5.0 GLOBULIN (test code = GLOB) gram/dL 2.7-4.2 ALBUMIN/GLOBULIN RATIO (test code = A/G) 0.75-1.50 CALCIUM (test code = CA) mg/dL 8.5-10.1 BILIRUBIN TOTAL (test code = BILT) mg/dL 0.0-1.0 SGOT/AST (test code = AST) IUnit/L 15-37 SGPT/ALT (test code = ALT) IUnit/L 12-78 ALKALINE PHOSPHATASE TOTAL (test code = ALKP) IUnit/L 45-117 [id number] 03:40:00* Test Item Value Reference Range Interpretation Comments PHOSPHORUS (test code = PHOS) mg/dL 2.5-4.9 [id number] 03:40:00* Test Item Value Reference Range Interpretation Comments MAGNESIUM (test code = MAG) mg/dL 1.8-2.4 CBC W/AUTO [id number] 03:28:00* Test Item Value Reference Range Interpretation Comments WHITE BLOOD CELL (test code = WBC) 15.0 K/mm3 4.5-12.5 H RED BLOOD CELL (test code = RBC) 3.20 mill/mm3 3.7-5.2 L HEMOGLOBIN (test code = HGB) 8.5 gram/dL 11.5-15.5 L HEMATOCRIT (test code = HCT) 28.7 % 36.0-46.0 L MEAN CELL VOLUME (test code = MCV) 89.7 fL 80-98 N MEAN CELL HGB (test code = MCH) 26.6 picogram 27.0-33.0 L MEAN CELL HGB CONCETRATION (test code = MCHC) 29.6 gram/dL 33.0-36. 0 L RED CELL DISTRIBUTION WIDTH (test code = RDW) 17.4 % 11.6-16. 2 H RED CELL DISTRIBUTION WIDTH SD (test code = RDW-SD) 55.2 fL 37 .0-51.0 H PLATELET COUNT (test code = PLT) 304 K/mm3 150-450 N MEAN PLATELET VOLUME (test code = MPV) 12.9 fL 6.7-11.0 H NEUTROPHIL % (test code = NT%) 91.2 % 39.0-69.0 H IMMATURE GRANULOCYTE % (test code = IG%) 1.3 % 0.0-5.0 N LYMPHOCYTE % (test code = LY%) 4.7 % 25.0-55.0 L MONOCYTE % (test code = MO%) 2.1 % 0.0-10.0 N EOSINOPHIL % (test code = EO%) 0.3 % 0.0-5.0 N BASOPHIL % (test code = BA%) 0.4 % 0.0-1.0 N NUCLEATED RBC % (test code = NRBC%) 0.0 % 0-0 N NEUTROPHIL # (test code = NT#) 13.62 K/mm3 1.8-7.7 H IMMATURE GRANULOCYTE # (test code = IG#) 0.19 x10 3/uL 0-0.03 H LYMPHOCYTE # (test code = LY#) 0.71 K/mm3 1.0-5.0 L MONOCYTE # (test code = MO#) 0.32 K/mm3 0-0.8 N EOSINOPHIL # (test code = EO#) 0.05 K/mm3 0.0-0.5 N BASOPHIL # (test code = BA#) 0.06 K/mm3 0.0-0.2 N NUCLEATED RBC # (test code = NRBC#) 0.00 K/mm3 0.0-0.1 N MANUAL DIFF REQUIRED (test code = MDIFF) NO, ONLY SCAN NEEDED DIFFERENTIAL [id number] 03:28:00* Test Item Value Reference Range Interpretation Comments STAIN ACCEPTABILITY (test code = STN ACCEPTABLE) MORPHOLOGY COMMENT (test code = MOC) PLATELET ESTIMATE (test code = PLTEST) PLATELET MORPHOLOGY (test code = PLTMORPH) CBC W/AUTO [id number] 03:25:00* Test Item Value Reference Range Interpretation Comments WHITE BLOOD CELL (test code = WBC) 15.0 K/mm3 4.5-12.5 H RED BLOOD CELL (test code = RBC) 3.20 mill/mm3 3.7-5.2 L HEMOGLOBIN (test code = HGB) 8.5 gram/dL 11.5-15.5 L HEMATOCRIT (test code = HCT) 28.7 % 36.0-46.0 L MEAN CELL VOLUME (test code = MCV) 89.7 fL 80-98 N MEAN CELL HGB (test code = MCH) 26.6 picogram 27.0-33.0 L MEAN CELL HGB CONCETRATION (test code = MCHC) 29.6 gram/dL 33.0-36. 0 L RED CELL DISTRIBUTION WIDTH (test code = RDW) 17.4 % 11.6-16. 2 H RED CELL DISTRIBUTION WIDTH SD (test code = RDW-SD) 55.2 fL 37 .0-51.0 H PLATELET COUNT (test code = PLT) 304 K/mm3 150-450 N MEAN PLATELET VOLUME (test code = MPV) 12.9 fL 6.7-11.0 H NEUTROPHIL % (test code = NT%) 91.2 % 39.0-69.0 H IMMATURE GRANULOCYTE % (test code = IG%) 1.3 % 0.0-5.0 N LYMPHOCYTE % (test code = LY%) 4.7 % 25.0-55.0 L MONOCYTE % (test code = MO%) 2.1 % 0.0-10.0 N EOSINOPHIL % (test code = EO%) 0.3 % 0.0-5.0 N BASOPHIL % (test code = BA%) 0.4 % 0.0-1.0 N NUCLEATED RBC % (test code = NRBC%) 0.0 % 0-0 N NEUTROPHIL # (test code = NT#) 13.62 K/mm3 1.8-7.7 H IMMATURE GRANULOCYTE # (test code = IG#) 0.19 x10 3/uL 0-0.03 H LYMPHOCYTE # (test code = LY#) 0.71 K/mm3 1.0-5.0 L MONOCYTE # (test code = MO#) 0.32 K/mm3 0-0.8 N EOSINOPHIL # (test code = EO#) 0.05 K/mm3 0.0-0.5 N BASOPHIL # (test code = BA#) 0.06 K/mm3 0.0-0.2 N NUCLEATED RBC # (test code = NRBC#) 0.00 K/mm3 0.0-0.1 N MANUAL DIFF REQUIRED (test code = MDIFF) NO, ONLY SCAN NEEDED DIFFERENTIAL [id number] 03:25:00* Test Item Value Reference Range Interpretation Comments STAIN ACCEPTABILITY (test code = STN ACCEPTABLE) CABOT RINGS (test code = CAB) MORPHOLOGY COMMENT (test code = MOC) PLATELET ESTIMATE (test code = PLTEST) PLATELET MORPHOLOGY (test code = PLTMORPH) CBC W/AUTO [id number] 03:25:00* Test Item Value Reference Range Interpretation Comments WHITE BLOOD CELL (test code = WBC) 15.0 K/mm3 4.5-12.5 H RED BLOOD CELL (test code = RBC) 3.20 mill/mm3 3.7-5.2 L HEMOGLOBIN (test code = HGB) 8.5 gram/dL 11.5-15.5 L HEMATOCRIT (test code = HCT) 28.7 % 36.0-46.0 L MEAN CELL VOLUME (test code = MCV) 89.7 fL 80-98 N MEAN CELL HGB (test code = MCH) 26.6 picogram 27.0-33.0 L MEAN CELL HGB CONCETRATION (test code = MCHC) 29.6 gram/dL 33.0-36. 0 L RED CELL DISTRIBUTION WIDTH (test code = RDW) 17.4 % 11.6-16. 2 H RED CELL DISTRIBUTION WIDTH SD (test code = RDW-SD) 55.2 fL 37 .0-51.0 H PLATELET COUNT (test code = PLT) 304 K/mm3 150-450 N MEAN PLATELET VOLUME (test code = MPV) 12.9 fL 6.7-11.0 H NEUTROPHIL % (test code = NT%) 91.2 % 39.0-69.0 H IMMATURE GRANULOCYTE % (test code = IG%) 1.3 % 0.0-5.0 N LYMPHOCYTE % (test code = LY%) 4.7 % 25.0-55.0 L MONOCYTE % (test code = MO%) 2.1 % 0.0-10.0 N EOSINOPHIL % (test code = EO%) 0.3 % 0.0-5.0 N BASOPHIL % (test code = BA%) 0.4 % 0.0-1.0 N NUCLEATED RBC % (test code = NRBC%) 0.0 % 0-0 N NEUTROPHIL # (test code = NT#) 13.62 K/mm3 1.8-7.7 H IMMATURE GRANULOCYTE # (test code = IG#) 0.19 x10 3/uL 0-0.03 H LYMPHOCYTE # (test code = LY#) 0.71 K/mm3 1.0-5.0 L MONOCYTE # (test code = MO#) 0.32 K/mm3 0-0.8 N EOSINOPHIL # (test code = EO#) 0.05 K/mm3 0.0-0.5 N BASOPHIL # (test code = BA#) 0.06 K/mm3 0.0-0.2 N NUCLEATED RBC # (test code = NRBC#) 0.00 K/mm3 0.0-0.1 N MANUAL DIFF REQUIRED (test code = MDIFF) NO, ONLY SCAN NEEDED DIFFERENTIAL [id number] 03:25:00* Test Item Value Reference Range Interpretation Comments STAIN ACCEPTABILITY (test code = STN ACCEPTABLE) MORPHOLOGY COMMENT (test code = MOC) PLATELET ESTIMATE (test code = PLTEST) PLATELET MORPHOLOGY (test code = PLTMORPH) CBC W/AUTO [id number] 03:25:00* Test Item Value Reference Range Interpretation Comments WHITE BLOOD CELL (test code = WBC) 15.0 K/mm3 4.5-12.5 H RED BLOOD CELL (test code = RBC) 3.20 mill/mm3 3.7-5.2 L HEMOGLOBIN (test code = HGB) 8.5 gram/dL 11.5-15.5 L HEMATOCRIT (test code = HCT) 28.7 % 36.0-46.0 L MEAN CELL VOLUME (test code = MCV) 89.7 fL 80-98 N MEAN CELL HGB (test code = MCH) 26.6 picogram 27.0-33.0 L MEAN CELL HGB CONCETRATION (test code = MCHC) 29.6 gram/dL 33.0-36. 0 L RED CELL DISTRIBUTION WIDTH (test code = RDW) 17.4 % 11.6-16. 2 H RED CELL DISTRIBUTION WIDTH SD (test code = RDW-SD) 55.2 fL 37 .0-51.0 H PLATELET COUNT (test code = PLT) 304 K/mm3 150-450 N MEAN PLATELET VOLUME (test code = MPV) 12.9 fL 6.7-11.0 H NEUTROPHIL % (test code = NT%) 91.2 % 39.0-69.0 H IMMATURE GRANULOCYTE % (test code = IG%) 1.3 % 0.0-5.0 N LYMPHOCYTE % (test code = LY%) 4.7 % 25.0-55.0 L MONOCYTE % (test code = MO%) 2.1 % 0.0-10.0 N EOSINOPHIL % (test code = EO%) 0.3 % 0.0-5.0 N BASOPHIL % (test code = BA%) 0.4 % 0.0-1.0 N NUCLEATED RBC % (test code = NRBC%) 0.0 % 0-0 N NEUTROPHIL # (test code = NT#) 13.62 K/mm3 1.8-7.7 H IMMATURE GRANULOCYTE # (test code = IG#) 0.19 x10 3/uL 0-0.03 H LYMPHOCYTE # (test code = LY#) 0.71 K/mm3 1.0-5.0 L MONOCYTE # (test code = MO#) 0.32 K/mm3 0-0.8 N EOSINOPHIL # (test code = EO#) 0.05 K/mm3 0.0-0.5 N BASOPHIL # (test code = BA#) 0.06 K/mm3 0.0-0.2 N NUCLEATED RBC # (test code = NRBC#) 0.00 K/mm3 0.0-0.1 N MANUAL DIFF REQUIRED (test code = MDIFF) NO, ONLY SCAN NEEDED DIFFERENTIAL [id number] 03:25:00* Test Item Value Reference Range Interpretation Comments STAIN ACCEPTABILITY (test code = STN ACCEPTABLE) CABOT RINGS (test code = CAB) MORPHOLOGY COMMENT (test code = MOC) PLATELET ESTIMATE (test code = PLTEST) PLATELET MORPHOLOGY (test code = PLTMORPH) [id number] 01:19:00* Test Item Value Reference Range Interpretation Comments GLUBED (test code = GLUBED) 187 mg/dL 74-106 H Performed by certified carousel operator at [facility] [id number] 20:59:00* Test Item Value Reference Range Interpretation Comments GLUBED (test code = GLUBED) 142 mg/dL 74-106 H Performed by certified carousel operator at [facility] [id number] 16:30:00* Test Item Value Reference Range Interpretation Comments GLUBED (test code = GLUBED) 112 mg/dL 74-106 H Performed by certified carousel operator at [facility] [id number] 12:11:00* Test Item Value Reference Range Interpretation Comments GLUBED (test code = GLUBED) 203 mg/dL 74-106 H Performed by certified carousel operator at [facility] - XR CHEST 1 [id number] 06:25:00 FAX: Justo Kaplan [place]: B St: ADM FAX: Josh Roldan MD [phone] FAX: Kevin Bass MD [phone] Name: DAYANA RICHARDSON [facility] : 1960 Age/S: 59/F [address] [facility] Unit #: [id number] Loc: V.S[address] [place] [address] Phys: Justo Kaplan Acct: [id number] Dis Date: Status: ADM IN ONE #: [phone] Exam Date: 09/04/2019522 FAX #: [phone] Reason: respiratory failure EXAMS: CPT CODE: [id number] XR CHEST 1 V 85749 CLINICAL HISTO RY: respiratory failure TECHNIQUE: AP chest x-ray CO MPARISON: Previous day. IMPRESSION: Improved b ibasilar subsegmental atelectasis. No airspace consolidation or pleural effusion. Normal heart size. Atherosclerotic vascular calcification of t he thoracic aorta. ET tube has been removed. NG tube remains in place. LOCATION: [facility] Electro nically Signed by Steph Gray D.O. on 09/04/2019 at 0625 R eported and signed by: Steph Gray D.O. CC: Justo Kaplan; Josh Roldan MD; Kevin Veronica MD Technologist: CAMERON BOONE JR; Juliann Loo rd Trnscrd Date/Time/By: 09/04/2019 (0655) : By: Lloyd DP1 Orig Print D/T: S: 09/04/2019 (627) PAGE 1 Signed Report GLUBED 2019-09-04 05:42:00* Test Item Value Reference Range Interpretation Comments GLUBED (test code = GLUBED) 245 mg/dL 74-106 H Performed by certified carousel operator at [facility] [id number] 02:56:00* Test Item Value Reference Range Interpretation Comments GLUBED (test code = GLUBED) 257 mg/dL 74-106 H Performed by certified carousel operator at [facility] COMPREHENSIVE METABOLIC [id number] 00:34:00* Test Item Value Reference Range Interpretation Comments SODIUM (test code = NA) 139 mmol/L 136-145 N POTASSIUM (test code = K) 4.0 mmol/L 3.5-5.1 N CHLORIDE (test code = CL) 96.0 mmol/L 98-107 L CARBON DIOXIDE (test code = CO2) 38.0 mmol/L 21-32 H ANION GAP (test code = GAP) 9.0 10-20 L GLUCOSE (test code = GLU) 271 mg/dL 74-106 H BLOOD UREA NITROGEN (test code = BUN) 13 mg/dL 7-18 N GLOMERULAR FILTRATION RATE (test code = GFR) > 60 mL/min >=60 Estimated GFR by using Modified MDRD formula.Chronic kidney disease is defined as either kidney damageor GFR <60 mL/min/1.73 m2 for >3 months. CREATININE (test code = CREAT) 0.70 mg/dL 0.55-1.02 N Note change in reference range due to change in reagent. BUN/CREATININE RATIO (test code = BUN/CREA) 18.6 10-20 N TOTAL PROTEIN (test code = PROT) 6.5 gram/dL 6.4-8.2 N ALBUMIN (test code = ALB) 2.1 g/dL 3.4-5.0 L GLOBULIN (test code = GLOB) 4.4 gram/dL 2.7-4.2 H ALBUMIN/GLOBULIN RATIO (test code = A/G) 0.5 0.75-1.50 L CALCIUM (test code = CA) 8.4 mg/dL 8.5-10.1 L BILIRUBIN TOTAL (test code = BILT) 0.30 mg/dL 0.0-1.0 N SGOT/AST (test code = AST) 18 IUnit/L 15-37 N SGPT/ALT (test code = ALT) 17 IUnit/L 12-78 N ALKALINE PHOSPHATASE TOTAL (test code = ALKP) 147 IUnit/L 45-117 H Note change in reference range due to change in reagent. [id number] 00:34:00* Test Item Value Reference Range Interpretation Comments PHOSPHORUS (test code = PHOS) 3.1 mg/dL 2.5-4.9 N [id number] 00:34:00* Test Item Value Reference Range Interpretation Comments MAGNESIUM (test code = MAG) 1.7 mg/dL 1.8-2.4 L COMPREHENSIVE METABOLIC [id number] 00:24:00* Test Item Value Reference Range Interpretation Comments SODIUM (test code = NA) 139 mmol/L 136-145 N POTASSIUM (test code = K) 4.0 mmol/L 3.5-5.1 N CHLORIDE (test code = CL) 96.0 mmol/L 98-107 L CARBON DIOXIDE (test code = CO2) mmol/L 21-32 ANION GAP (test code = GAP) 10-20 GLUCOSE (test code = GLU) mg/dL 74-106 BLOOD UREA NITROGEN (test code = BUN) mg/dL 7-18 GLOMERULAR FILTRATION RATE (test code = GFR) mL/min >=60 CREATININE (test code = CREAT) mg/dL 0.55-1.02 BUN/CREATININE RATIO (test code = BUN/CREA) 10-20 TOTAL PROTEIN (test code = PROT) gram/dL 6.4-8.2 ALBUMIN (test code = ALB) g/dL 3.4-5.0 GLOBULIN (test code = GLOB) gram/dL 2.7-4.2 ALBUMIN/GLOBULIN RATIO (test code = A/G) 0.75-1.50 CALCIUM (test code = CA) mg/dL 8.5-10.1 BILIRUBIN TOTAL (test code = BILT) mg/dL 0.0-1.0 SGOT/AST (test code = AST) IUnit/L 15-37 SGPT/ALT (test code = ALT) IUnit/L 12-78 ALKALINE PHOSPHATASE TOTAL (test code = ALKP) IUnit/L 45-117 [id number] 00:24:00* Test Item Value Reference Range Interpretation Comments PHOSPHORUS (test code = PHOS) mg/dL 2.5-4.9 [id number] 00:24:00* Test Item Value Reference Range Interpretation Comments MAGNESIUM (test code = MAG) mg/dL 1.8-2.4 CBC W/AUTO [id number] 00:11:00* Test Item Value Reference Range Interpretation Comments WHITE BLOOD CELL (test code = WBC) 15.6 K/mm3 4.5-12.5 H RED BLOOD CELL (test code = RBC) 2.94 mill/mm3 3.7-5.2 L HEMOGLOBIN (test code = HGB) 8.0 gram/dL 11.5-15.5 L HEMATOCRIT (test code = HCT) 25.8 % 36.0-46.0 L MEAN CELL VOLUME (test code = MCV) 87.8 fL 80-98 N MEAN CELL HGB (test code = MCH) 27.2 picogram 27.0-33.0 N MEAN CELL HGB CONCETRATION (test code = MCHC) 31.0 gram/dL 33.0-36. 0 L RED CELL DISTRIBUTION WIDTH (test code = RDW) 16.5 % 11.6-16. 2 H RED CELL DISTRIBUTION WIDTH SD (test code = RDW-SD) 52.1 fL 37 .0-51.0 H PLATELET COUNT (test code = PLT) 307 K/mm3 150-450 N MEAN PLATELET VOLUME (test code = MPV) 13.2 fL 6.7-11.0 H NEUTROPHIL % (test code = NT%) 90.6 % 39.0-69.0 H IMMATURE GRANULOCYTE % (test code = IG%) 0.6 % 0.0-5.0 N LYMPHOCYTE % (test code = LY%) 4.1 % 25.0-55.0 L MONOCYTE % (test code = MO%) 4.4 % 0.0-10.0 N EOSINOPHIL % (test code = EO%) 0.1 % 0.0-5.0 N BASOPHIL % (test code = BA%) 0.2 % 0.0-1.0 N NUCLEATED RBC % (test code = NRBC%) 0.0 % 0-0 N NEUTROPHIL # (test code = NT#) 14.16 K/mm3 1.8-7.7 H IMMATURE GRANULOCYTE # (test code = IG#) 0.10 x10 3/uL 0-0.03 H LYMPHOCYTE # (test code = LY#) 0.64 K/mm3 1.0-5.0 L MONOCYTE # (test code = MO#) 0.68 K/mm3 0-0.8 N EOSINOPHIL # (test code = EO#) 0.01 K/mm3 0.0-0.5 N BASOPHIL # (test code = BA#) 0.03 K/mm3 0.0-0.2 N NUCLEATED RBC # (test code = NRBC#) 0.00 K/mm3 0.0-0.1 N [id number] 23:15:00* Test Item Value Reference Range Interpretation Comments GLUBED (test code = GLUBED) 204 mg/dL 74-106 H Performed by certified carousel operator at [facility] [id number] 17:59:00* Test Item Value Reference Range Interpretation Comments GLUBED (test code = GLUBED) 200 mg/dL 74-106 H Performed by certified carousel operator at [facility] [id number] 12:17:00* Test Item Value Reference Range Interpretation Comments GLUBED (test code = GLUBED) 207 mg/dL 74-106 H Performed by certified carousel operator at [facility] - XR CHEST 1 [id number] 07:13:00 FAX: Justo Kaplan [place]: B St: ADM FAX: Josh Roldan MD [phone] FAX: Kevin Bass MD [phone] Name: DAYANA RICHARDSON [facility] : 1960 Age/S: 59/F [address] Unit #: [id number] Loc: [place] [address] Phys: Justo Kaplan Acct: [id number] Dis Date: Status: ADM IN ONE #: [phone] Exam Date: 09/03/2019431 FAX #: [phone] Reason: respiratory failure EXAMS: CPT CODE: [id number] XR CHEST 1 V 11969 HISTORY: Respi ratory failure. COMPARISON: Previous day. Location: TH. ET tube and NG tube are unchanged in position. N o acute infiltrates, effusion or congestion is noted. Dependent changes a nd mild cardiomegaly. IMPRESSION: No acute i nfiltrates, effusion or congestion. at 0713 Reported and signed by: Telly Arguello M.D. CC: Justo Kaplan; Josh Roldan MD; Kevin Veronica MD Technologist: Robert Washington RT(R); SONJA STEPHEN RT(R) Trnscrd Date/Time/By: 09/03/2019 (712) : By: [email or web address] [employer] Print D/T: S: 09/03/2019 (3317) PAGE 1 Signed Report [id number] 05:55:00* Test Item Value Reference Range Interpretation Comments GLUBED (test code = GLUBED) 240 mg/dL 74-106 H Performed by certified carousel operator at [facility] [id number] 05:55:00* Test Item Value Reference Range Interpretation Comments GLUBED (test code = GLUBED) 172 mg/dL 74-106 H Performed by certified carousel operator at [facility] [id number] 05:55:00* Test Item Value Reference Range Interpretation Comments GLUBED (test code = GLUBED) 138 mg/dL 74-106 H Performed by certified carousel operator at [facility] CBC W/AUTO [id number] 01:52:00* Test Item Value Reference Range Interpretation Comments WHITE BLOOD CELL (test code = WBC) 14.1 K/mm3 4.5-12.5 H RED BLOOD CELL (test code = RBC) 2.81 mill/mm3 3.7-5.2 L HEMOGLOBIN (test code = HGB) 7.5 gram/dL 11.5-15.5 L HEMATOCRIT (test code = HCT) 23.8 % 36.0-46.0 L MEAN CELL VOLUME (test code = MCV) 84.7 fL 80-98 N MEAN CELL HGB (test code = MCH) 26.7 picogram 27.0-33.0 L MEAN CELL HGB CONCETRATION (test code = MCHC) 31.5 gram/dL 33.0-36. 0 L RED CELL DISTRIBUTION WIDTH (test code = RDW) 16.1 % 11.6-16. 2 N RED CELL DISTRIBUTION WIDTH SD (test code = RDW-SD) 49.5 fL 37 .0-51.0 N PLATELET COUNT (test code = PLT) 279 K/mm3 150-450 N MEAN PLATELET VOLUME (test code = MPV) 13.7 fL 6.7-11.0 H NEUTROPHIL % (test code = NT%) 92.3 % 39.0-69.0 H IMMATURE GRANULOCYTE % (test code = IG%) 0.5 % 0.0-5.0 N LYMPHOCYTE % (test code = LY%) 4.0 % 25.0-55.0 L MONOCYTE % (test code = MO%) 2.8 % 0.0-10.0 N EOSINOPHIL % (test code = EO%) 0.2 % 0.0-5.0 N BASOPHIL % (test code = BA%) 0.2 % 0.0-1.0 N NUCLEATED RBC % (test code = NRBC%) 0.0 % 0-0 N NEUTROPHIL # (test code = NT#) 13.03 K/mm3 1.8-7.7 H IMMATURE GRANULOCYTE # (test code = IG#) 0.07 x10 3/uL 0-0.03 H LYMPHOCYTE # (test code = LY#) 0.56 K/mm3 1.0-5.0 L MONOCYTE # (test code = MO#) 0.39 K/mm3 0-0.8 N EOSINOPHIL # (test code = EO#) 0.03 K/mm3 0.0-0.5 N BASOPHIL # (test code = BA#) 0.03 K/mm3 0.0-0.2 N NUCLEATED RBC # (test code = NRBC#) 0.00 K/mm3 0.0-0.1 N MANUAL DIFF REQUIRED (test code = MDIFF) NO COMPREHENSIVE METABOLIC [id number] 01:24:00* Test Item Value Reference Range Interpretation Comments SODIUM (test code = NA) 138 mmol/L 136-145 N POTASSIUM (test code = K) 3.7 mmol/L 3.5-5.1 N CHLORIDE (test code = CL) 96.0 mmol/L 98-107 L CARBON DIOXIDE (test code = CO2) 34.0 mmol/L 21-32 H ANION GAP (test code = GAP) 11.7 10-20 N GLUCOSE (test code = GLU) 184 mg/dL 74-106 H BLOOD UREA NITROGEN (test code = BUN) 13 mg/dL 7-18 N GLOMERULAR FILTRATION RATE (test code = GFR) > 60 mL/min >=60 Estimated GFR by using Modified MDRD formula.Chronic kidney disease is defined as either kidney damageor GFR <60 mL/min/1.73 m2 for >3 months. CREATININE (test code = CREAT) 0.80 mg/dL 0.55-1.02 N Note change in reference range due to change in reagent. BUN/CREATININE RATIO (test code = BUN/CREA) 16.3 10-20 N TOTAL PROTEIN (test code = PROT) 6.2 gram/dL 6.4-8.2 L ALBUMIN (test code = ALB) 2.1 g/dL 3.4-5.0 L GLOBULIN (test code = GLOB) 4.1 gram/dL 2.7-4.2 N ALBUMIN/GLOBULIN RATIO (test code = A/G) 0.5 0.75-1.50 L CALCIUM (test code = CA) 8.2 mg/dL 8.5-10.1 L BILIRUBIN TOTAL (test code = BILT) 0.30 mg/dL 0.0-1.0 N SGOT/AST (test code = AST) 24 IUnit/L 15-37 N SGPT/ALT (test code = ALT) 19 IUnit/L 12-78 N ALKALINE PHOSPHATASE TOTAL (test code = ALKP) 146 IUnit/L 45-117 H Note change in reference range due to change in reagent. [id number] 01:24:00* Test Item Value Reference Range Interpretation Comments PHOSPHORUS (test code = PHOS) 2.8 mg/dL 2.5-4.9 N [id number] 01:24:00* Test Item Value Reference Range Interpretation Comments MAGNESIUM (test code = MAG) 1.6 mg/dL 1.8-2.4 L COMPREHENSIVE METABOLIC [id number] 01:17:00* Test Item Value Reference Range Interpretation Comments SODIUM (test code = NA) 138 mmol/L 136-145 N POTASSIUM (test code = K) 3.7 mmol/L 3.5-5.1 N CHLORIDE (test code = CL) 96.0 mmol/L 98-107 L CARBON DIOXIDE (test code = CO2) mmol/L 21-32 ANION GAP (test code = GAP) 10-20 GLUCOSE (test code = GLU) mg/dL 74-106 BLOOD UREA NITROGEN (test code = BUN) mg/dL 7-18 GLOMERULAR FILTRATION RATE (test code = GFR) mL/min >=60 CREATININE (test code = CREAT) mg/dL 0.55-1.02 BUN/CREATININE RATIO (test code = BUN/CREA) 10-20 TOTAL PROTEIN (test code = PROT) gram/dL 6.4-8.2 ALBUMIN (test code = ALB) g/dL 3.4-5.0 GLOBULIN (test code = GLOB) gram/dL 2.7-4.2 ALBUMIN/GLOBULIN RATIO (test code = A/G) 0.75-1.50 CALCIUM (test code = CA) mg/dL 8.5-10.1 BILIRUBIN TOTAL (test code = BILT) mg/dL 0.0-1.0 SGOT/AST (test code = AST) IUnit/L 15-37 SGPT/ALT (test code = ALT) IUnit/L 12-78 ALKALINE PHOSPHATASE TOTAL (test code = ALKP) IUnit/L 45-117 [id number] 01:17:00* Test Item Value Reference Range Interpretation Comments PHOSPHORUS (test code = PHOS) mg/dL 2.5-4.9 [id number] 01:17:00* Test Item Value Reference Range Interpretation Comments MAGNESIUM (test code = MAG) mg/dL 1.8-2.4 [id number] 17:32:00* Test Item Value Reference Range Interpretation Comments GLUBED (test code = GLUBED) 122 mg/dL 74-106 H Performed by certified carousel operator at [facility] - XR CHEST 1 [id number] 12:12:00 FAX: Andrew Guerra [phone] [place]: St: ADM FAX: Josh Roldan MD [phone] FAX: Kevin Bass MD [phone] Name: DAYANA RICHARDSON [facility] : 1960 Age/S: 59/F [address] [facility] Unit #: [id number] Loc: [address] [address] Phys: Andrew Guerra Acct: [id number] Dis Date: Status: ADM IN ONE #: [phone] Exam Date: 09/02/2019 1135 FAX #: [phone] Reason: post intubation and NG tube adjustment. EXAMS: CPT CODE: [id number] XR CHEST 1 V 18802 EXAM: Chest x- ray, one view; INFORMATION: Respiratory failure, post intubation; IMPRESSION: 1. Well-positioned endotracheal tube; its ti p is 3 cm above the [place]. 2. A nasogastric tube has been advan al into the stomach. 3. Improvement compared with the study obtained ea polina today: Lung bases are better aerated indicating partial resolution of basilar infiltrative/atelectatic changes. Location code: [facility] at 1212 Reported and signed by: Clif Laguna M.D. CC: Mery saleem,Andrew PARRY; Josh Roldan MD; Kevin Veronica MD Technologist: MELODY LAMBERT IN RT(R) Trnscrd Date/Time/By: 09/02/2019 (1212 ) : By: EnriqueGRW Orig Print D/T: S: 09/02/2019 (1215) PAGE 1 Signed Report [id number] 12:06:00* Test Item Value Reference Range Interpretation Comments GLUBED (test code = GLUBED) 129 mg/dL 74-106 H Performed by certified carousel operator at [facility] ARTERIAL BLOOD [id number] 11:54:00* Test Item Value Reference Range Interpretation Comments ARTERIAL BLOOD GAS PH (test code = PHA) 7.48 7.35-7.45 H ARTERIAL BLOOD GAS PCO2 (test code = PCO2A) 48.7 mm Hg 35-45 H ARTERIAL BLOOD GAS PO2 (test code = PO2A) 236.9 mmHg 80-100 H BICARBONATE TOTAL HCO3 (test code = HCO3) 35.2 mmol/L 23.0-27.0 HH Results called to and read back by [employer] 09/02/2019; by RON BASE EXCESS (test code = TONIA) 10.5 mmol/L -3.0-5.0 HH Results called to and read back by [employer] 09/02/2019; by RON ABG O2 SATURATION (test code = SATA) 99.0 % 90.0-98.0 H ABG TYPE (test code = TYPEA) Arterial FIO2 (test code = FIO2A) 70.0 ABG VENT MODE (test code = MODEA) Assist Control ABG VENT RESP RATE (test code = RRA) 18.0 per min ABG TIDAL VOLUME (test code = TVA) 450.0 mL ABG PEEP (test code = PEEPA) 8.0 cmH2O ABG SITE (test code = SITEA) Lt RADIAL ARTERY MODIFIED ALLENS (test code = MODALL) Unable CHECK PERFORMED HEMATOCRIT (test code = HCT/ABG) 26 % 35-47 L TOTAL HGB (test code = THB) 8.8 gram/dL 11.5-15.5 L HGB O2 SAT (test code = HBOSAT) 98.1 % 94.00-98.00 H CARBOXYHEMOGLOBIN (test code = HOHGBT) 0.3 %totalHg 0.5-1.5 LL Results called to and read back by PHACat 11:54 - 09/02/2019; by RON METHEMOGLOBIN (test code = METHGB) 0.6 % 0.0-1.50 N O2 CONTENT (test code = O2CT) 12.7 % vol 18.0-22.0 L [id number] 09:09:00* Test Item Value Reference Range Interpretation Comments GLUBED (test code = GLUBED) 142 mg/dL 74-106 H Performed by certified carousel operator at [facility] - XR CHEST 1 [id number] 08:59:00 FAX: Anushka Benton NP [phone] [place]: B St: ADM FAX: Josh Roldan MD [phone] FAX: Kevin Bass MD [phone] Name: DAYANA RICHARDSON [facility] : 1960 Age/S: 59/F [address] [facility] Unit #: [id number] Loc: [place] [address] Phys: Anushka Benton NP Acct: [id number] Dis Date: Status: ADM IN ONE #: [phone] Exam Date: 09/02/2019 0408 FAX #: [phone] Reason: sob EXAMS: CPT CODE: [id number] XR CHEST 1 V 37833 EXAM: Chest x- ray, one view; INFORMATION: Shortness of breath, respiratory failu re, pneumonia, sepsis; IMPRESSION: No significant change compared with yesterday's study; persistent patchy infiltrative c hanges in the basilar portions of both lungs, right greater than left. Location code: [facility] at 0859 Reported and signed by: Clif Laguna M.D. CC: Anushka Benton NP; Josh Roldan MD; Kevin Veronica MD echnologist: Robert Washington RT(R); SONJA STEPHEN RT(R) Trnscrd Date /Time/By: 09/02/2019 (0859) : By: Cesar Orig Print D/T: S: 020 (0902) PAGE 1 Signed Report BASIC METABOLIC [id number] 01:12:00* Test Item Value Reference Range Interpretation Comments SODIUM (test code = NA) 141 mmol/L 136-145 N POTASSIUM (test code = K) 3.9 mmol/L 3.5-5.1 N CHLORIDE (test code = CL) 98.0 mmol/L 98-107 N CARBON DIOXIDE (test code = CO2) 37.0 mmol/L 21-32 H ANION GAP (test code = GAP) 9.9 10-20 L GLUCOSE (test code = GLU) 137 mg/dL 74-106 H BLOOD UREA NITROGEN (test code = BUN) 13 mg/dL 7-18 N GLOMERULAR FILTRATION RATE (test code = GFR) > 60 mL/min >=60 Estimated GFR by using Modified MDRD formula.Chronic kidney disease is defined as either kidney damageor GFR <60 mL/min/1.73 m2 for >3 months. CREATININE (test code = CREAT) 0.70 mg/dL 0.55-1.02 N Note change in reference range due to change in reagent. BUN/CREATININE RATIO (test code = BUN/CREA) 18.6 10-20 N CALCIUM (test code = CA) 8.4 mg/dL 8.5-10.1 L [id number] 01:12:00* Test Item Value Reference Range Interpretation Comments PHOSPHORUS (test code = PHOS) 3.6 mg/dL 2.5-4.9 N [id number] 01:12:00* Test Item Value Reference Range Interpretation Comments MAGNESIUM (test code = MAG) 1.6 mg/dL 1.8-2.4 L BASIC METABOLIC [id number] 00:59:00* Test Item Value Reference Range Interpretation Comments SODIUM (test code = NA) 141 mmol/L 136-145 N POTASSIUM (test code = K) 3.9 mmol/L 3.5-5.1 N CHLORIDE (test code = CL) 98.0 mmol/L 98-107 N CARBON DIOXIDE (test code = CO2) mmol/L 21-32 ANION GAP (test code = GAP) 10-20 GLUCOSE (test code = GLU) mg/dL 74-106 BLOOD UREA NITROGEN (test code = BUN) mg/dL 7-18 GLOMERULAR FILTRATION RATE (test code = GFR) mL/min >=60 CREATININE (test code = CREAT) mg/dL 0.55-1.02 BUN/CREATININE RATIO (test code = BUN/CREA) 10-20 CALCIUM (test code = CA) mg/dL 8.5-10.1 [id number] 00:59:00* Test Item Value Reference Range Interpretation Comments PHOSPHORUS (test code = PHOS) mg/dL 2.5-4.9 [id number] 00:59:00* Test Item Value Reference Range Interpretation Comments MAGNESIUM (test code = MAG) mg/dL 1.8-2.4 CBC W/AUTO [id number] 00:59:00* Test Item Value Reference Range Interpretation Comments WHITE BLOOD CELL (test code = WBC) 12.4 K/mm3 4.5-12.5 N RED BLOOD CELL (test code = RBC) 3.02 mill/mm3 3.7-5.2 L HEMOGLOBIN (test code = HGB) 8.1 gram/dL 11.5-15.5 L HEMATOCRIT (test code = HCT) 26.7 % 36.0-46.0 L MEAN CELL VOLUME (test code = MCV) 88.4 fL 80-98 N MEAN CELL HGB (test code = MCH) 26.8 picogram 27.0-33.0 L MEAN CELL HGB CONCETRATION (test code = MCHC) 30.3 gram/dL 33.0-36. 0 L RED CELL DISTRIBUTION WIDTH (test code = RDW) 16.0 % 11.6-16. 2 N RED CELL DISTRIBUTION WIDTH SD (test code = RDW-SD) 51.7 fL 37 .0-51.0 H PLATELET COUNT (test code = PLT) 251 K/mm3 150-450 N MEAN PLATELET VOLUME (test code = MPV) 13.6 fL 6.7-11.0 H NEUTROPHIL % (test code = NT%) 74.7 % 39.0-69.0 H IMMATURE GRANULOCYTE % (test code = IG%) 0.6 % 0.0-5.0 N LYMPHOCYTE % (test code = LY%) 13.4 % 25.0-55.0 L MONOCYTE % (test code = MO%) 9.7 % 0.0-10.0 N EOSINOPHIL % (test code = EO%) 1.1 % 0.0-5.0 N BASOPHIL % (test code = BA%) 0.5 % 0.0-1.0 N NUCLEATED RBC % (test code = NRBC%) 0.0 % 0-0 N NEUTROPHIL # (test code = NT#) 9.26 K/mm3 1.8-7.7 H IMMATURE GRANULOCYTE # (test code = IG#) 0.08 x10 3/uL 0-0.03 H LYMPHOCYTE # (test code = LY#) 1.66 K/mm3 1.0-5.0 N MONOCYTE # (test code = MO#) 1.20 K/mm3 0-0.8 H EOSINOPHIL # (test code = EO#) 0.14 K/mm3 0.0-0.5 N BASOPHIL # (test code = BA#) 0.06 K/mm3 0.0-0.2 N NUCLEATED RBC # (test code = NRBC#) 0.00 K/mm3 0.0-0.1 N [id number] 00:47:00* Test Item Value Reference Range Interpretation Comments GLUBED (test code = GLUBED) 138 mg/dL 74-106 H Performed by certified carousel operator at [facility] [id number] 00:47:00* Test Item Value Reference Range Interpretation Comments GLUBED (test code = GLUBED) 130 mg/dL 74-106 H Performed by certified carousel operator at [facility] [id number] 17:47:00* Test Item Value Reference Range Interpretation Comments GLUBED (test code = GLUBED) 108 mg/dL 74-106 H Performed by certified carousel operator at [facility] ARTERIAL BLOOD [id number] 16:37:00* Test Item Value Reference Range Interpretation Comments ARTERIAL BLOOD GAS PH (test code = PHA) 7.41 7.35-7.45 N ARTERIAL BLOOD GAS PCO2 (test code = PCO2A) 60.4 mm Hg 35-45 H ARTERIAL BLOOD GAS PO2 (test code = PO2A) 102.6 mmHg 80-100 H BICARBONATE TOTAL HCO3 (test code = HCO3) 37.0 mmol/L 23.0-27.0 HH Results called to and read back by [employer] 09/01/2019; by desire BASE EXCESS (test code = TONIA) 10.6 mmol/L -3.0-5.0 HH Results called to and read back by [employer] 09/01/2019; by desire ABG O2 SATURATION (test code = SATA) 97.2 % 90.0-98.0 N ABG TYPE (test code = TYPEA) Arterial FIO2 (test code = FIO2A) 40.0 ABG VENT MODE (test code = MODEA) AVAPS ABG VENT RESP RATE (test code = RRA) 18.0 per min ABG TIDAL VOLUME (test code = TVA) 500.0 mL ABG PEEP (test code = PEEPA) 8.0 cmH2O ABG SITE (test code = SITEA) Lt RADIAL ARTERY MODIFIED ALLENS (test code = MODALL) Yes CHECK PERFORMED HEMATOCRIT (test code = HCT/ABG) 29 % 35-47 L TOTAL HGB (test code = THB) 9.7 gram/dL 11.5-15.5 L HGB O2 SAT (test code = HBOSAT) 96.4 % 94.00-98.00 N CARBOXYHEMOGLOBIN (test code = HOHGBT) 0.3 %totalHg 0.5-1.5 LL Results called to and read back by [employer] 09/01/2019; by desire METHEMOGLOBIN (test code = METHGB) 0.5 % 0.0-1.50 N O2 CONTENT (test code = O2CT) 13.3 % vol 18.0-22.0 L [id number] 13:00:00* Test Item Value Reference Range Interpretation Comments GLUBED (test code = GLUBED) 118 mg/dL 74-106 H Performed by certified carousel operator at [facility] - XR CHEST 1 [id number] 07:02:00 FAX: Anushka Benton NP [phone] [place]: St: ADM FAX: Josh Roldan MD [phone] FAX: Kevin Bass MD [phone] Name: DAYANA RICHARDSON [facility] : 1960 Age/S: 59/F [address] [facility] Unit #: [id number] Loc: [address] [place] [address] Phys: Anushka Benton NP Acct: [id number] Dis Date: Status: ADM IN ONE #: [phone] Exam Date: 09/01/2019 0549 FAX #: [phone] Reason: sob EXAMS: CPT CODE: [id number] XR CHEST 1 V 31255 HISTORY: Short ness of breath. COMPARISON: Previous day. Location: . NG tube tip in the stomach. Patchy bibasal infiltrates, great er on the right are unchanged. Hyperinflation and scarring. No effusion or congestion. Mild cardiomegaly. IMPRESSION: Patchy bibasal infiltrates, greater on the right demonstrating no significant change. Electronically Signed by Margaret Arguello on 0 09/01/2019 at 0702 Reported and signed by: Telly Arguello M.D. CC: Anushka Benton INFECTIOUS DISEASES PHYSICIAN; Josh Roldan MD; Eder Veronica MD Technologist: CAMERON BOONE JR; Juliann puga Date/Time/By: 09/01/2019 (0702) : By: [email or web address] Orig Print D/T: S : 09/01/2019 (0754) PAGE 1 Signed Report [id number] 05:54:00* Test Item Value Reference Range Interpretation Comments GLUBED (test code = GLUBED) 115 mg/dL 74-106 H Performed by certified carousel operator at [facility] BASIC METABOLIC [id number] 03:35:00* Test Item Value Reference Range Interpretation Comments SODIUM (test code = NA) 141 mmol/L 136-145 N POTASSIUM (test code = K) 4.4 mmol/L 3.5-5.1 N CHLORIDE (test code = CL) 102.0 mmol/L 98-107 N CARBON DIOXIDE (test code = CO2) 33.0 mmol/L 21-32 H ANION GAP (test code = GAP) 10.4 10-20 N GLUCOSE (test code = GLU) 122 mg/dL 74-106 H BLOOD UREA NITROGEN (test code = BUN) 15 mg/dL 7-18 N GLOMERULAR FILTRATION RATE (test code = GFR) > 60 mL/min >=60 Estimated GFR by using Modified MDRD formula.Chronic kidney disease is defined as either kidney damageor GFR <60 mL/min/1.73 m2 for >3 months. CREATININE (test code = CREAT) 0.70 mg/dL 0.55-1.02 N Note change in reference range due to change in reagent. BUN/CREATININE RATIO (test code = BUN/CREA) 21.4 10-20 H CALCIUM (test code = CA) 8.3 mg/dL 8.5-10.1 L [id number] 03:35:00* Test Item Value Reference Range Interpretation Comments PHOSPHORUS (test code = PHOS) 3.6 mg/dL 2.5-4.9 N [id number] 03:35:00* Test Item Value Reference Range Interpretation Comments MAGNESIUM (test code = MAG) 2.0 mg/dL 1.8-2.4 N BASIC METABOLIC [id number] 03:28:00* Test Item Value Reference Range Interpretation Comments SODIUM (test code = NA) 141 mmol/L 136-145 N POTASSIUM (test code = K) 4.4 mmol/L 3.5-5.1 N CHLORIDE (test code = CL) 102.0 mmol/L 98-107 N CARBON DIOXIDE (test code = CO2) mmol/L 21-32 ANION GAP (test code = GAP) 10-20 GLUCOSE (test code = GLU) mg/dL 74-106 BLOOD UREA NITROGEN (test code = BUN) mg/dL 7-18 GLOMERULAR FILTRATION RATE (test code = GFR) mL/min >=60 CREATININE (test code = CREAT) mg/dL 0.55-1.02 BUN/CREATININE RATIO (test code = BUN/CREA) 10-20 CALCIUM (test code = CA) mg/dL 8.5-10.1 [id number] 03:28:00* Test Item Value Reference Range Interpretation Comments PHOSPHORUS (test code = PHOS) mg/dL 2.5-4.9 [id number] 03:28:00* Test Item Value Reference Range Interpretation Comments MAGNESIUM (test code = MAG) mg/dL 1.8-2.4 CBC W/AUTO [id number] 02:43:00* Test Item Value Reference Range Interpretation Comments WHITE BLOOD CELL (test code = WBC) 10.5 K/mm3 4.5-12.5 N RED BLOOD CELL (test code = RBC) 2.98 mill/mm3 3.7-5.2 L HEMOGLOBIN (test code = HGB) 8.0 gram/dL 11.5-15.5 L HEMATOCRIT (test code = HCT) 25.7 % 36.0-46.0 L MEAN CELL VOLUME (test code = MCV) 86.2 fL 80-98 N MEAN CELL HGB (test code = MCH) 26.8 picogram 27.0-33.0 L MEAN CELL HGB CONCETRATION (test code = MCHC) 31.1 gram/dL 33.0-36. 0 L RED CELL DISTRIBUTION WIDTH (test code = RDW) 16.2 % 11.6-16. 2 N RED CELL DISTRIBUTION WIDTH SD (test code = RDW-SD) 50.7 fL 37 .0-51.0 N PLATELET COUNT (test code = PLT) 208 K/mm3 150-450 N MEAN PLATELET VOLUME (test code = MPV) 13.9 fL 6.7-11.0 H NEUTROPHIL % (test code = NT%) 70.3 % 39.0-69.0 H IMMATURE GRANULOCYTE % (test code = IG%) 0.3 % 0.0-5.0 N LYMPHOCYTE % (test code = LY%) 16.7 % 25.0-55.0 L MONOCYTE % (test code = MO%) 11.2 % 0.0-10.0 H EOSINOPHIL % (test code = EO%) 1.0 % 0.0-5.0 N BASOPHIL % (test code = BA%) 0.5 % 0.0-1.0 N NUCLEATED RBC % (test code = NRBC%) 0.0 % 0-0 N NEUTROPHIL # (test code = NT#) 7.38 K/mm3 1.8-7.7 N IMMATURE GRANULOCYTE # (test code = IG#) 0.03 x10 3/uL 0-0.03 N LYMPHOCYTE # (test code = LY#) 1.75 K/mm3 1.0-5.0 N MONOCYTE # (test code = MO#) 1.18 K/mm3 0-0.8 H EOSINOPHIL # (test code = EO#) 0.11 K/mm3 0.0-0.5 N BASOPHIL # (test code = BA#) 0.05 K/mm3 0.0-0.2 N NUCLEATED RBC # (test code = NRBC#) 0.00 K/mm3 0.0-0.1 N MANUAL DIFF REQUIRED (test code = MDIFF) NO [id number] 00:11:00* Test Item Value Reference Range Interpretation Comments GLUBED (test code = GLUBED) 126 mg/dL 74-106 H Performed by certified carousel operator at [facility] [id number] 00:11:00* Test Item Value Reference Range Interpretation Comments GLUBED (test code = GLUBED) 108 mg/dL 74-106 H Performed by certified carousel operator at [facility] [id number] 15:46:00* Test Item Value Reference Range Interpretation Comments GLUBED (test code = GLUBED) 106 mg/dL 74-106 N Performed by certified carousel operator at [facility] - XR CHEST 1 [id number] 07:30:00 FAX: Anushka Benton NP [phone] [place]: B St: ADM FAX: Josh Roldan MD [phone] FAX: Kevin Bass MD [phone] Name: DAYANA RICHARDSON [facility] : 1960 Age/S: 59/F [address] Unit #: [id number] Loc: [place] [address] Phys: Anushka Benton NP Acct: [id number] Dis Date: Status: ADM IN ONE #: [phone] Exam Date: 08/31/2019530 FAX #: [phone] Reason: PNEUMONIA EXAMS: CPT CODE: [id number] XR CHEST 1 V 45725 HISTORY: Pneum onia. COMPARISON: Previous day. Location: TH. NG tube is unchanged in position. Scarring and hyperinflation. P atchy vague basal infiltrates are unchanged. No effusion or congestion. Cardiac silhouette is normal. IMPRESSION: Vagu e basal infiltrates are unchanged. at 0730 Reported and signed by: Telly Arguello M.D. CC: Anushka Benton NP; Josh Roldan MD; Kevin Veronica MD Technologist: CAMERON BOONE JR; Juliann Weiss Trnarrd Date/Time/By: 08/31/2019 (0730) : By: [email or web address] [employer] Print D/T: S: 08/31/2019 (2839) PAGE 1 Signed Report [id number] 05:25:00* Test Item Value Reference Range Interpretation Comments GLUBED (test code = GLUBED) 156 mg/dL 74-106 H Performed by certified carousel operator at [facility] BASIC METABOLIC [id number] 03:19:00* Test Item Value Reference Range Interpretation Comments SODIUM (test code = NA) 141 mmol/L 136-145 N POTASSIUM (test code = K) 4.0 mmol/L 3.5-5.1 N CHLORIDE (test code = CL) 101.0 mmol/L 98-107 N CARBON DIOXIDE (test code = CO2) 36.0 mmol/L 21-32 H ANION GAP (test code = GAP) 8.0 10-20 L GLUCOSE (test code = GLU) 184 mg/dL 74-106 H BLOOD UREA NITROGEN (test code = BUN) 15 mg/dL 7-18 N GLOMERULAR FILTRATION RATE (test code = GFR) > 60 mL/min >=60 Estimated GFR by using Modified MDRD formula.Chronic kidney disease is defined as either kidney damageor GFR <60 mL/min/1.73 m2 for >3 months. CREATININE (test code = CREAT) 0.80 mg/dL 0.55-1.02 N Note change in reference range due to change in reagent. BUN/CREATININE RATIO (test code = BUN/CREA) 18.8 10-20 N CALCIUM (test code = CA) 8.4 mg/dL 8.5-10.1 L [id number] 03:19:00* Test Item Value Reference Range Interpretation Comments PHOSPHORUS (test code = PHOS) 3.5 mg/dL 2.5-4.9 N [id number] 03:19:00* Test Item Value Reference Range Interpretation Comments MAGNESIUM (test code = MAG) 1.7 mg/dL 1.8-2.4 L BASIC METABOLIC [id number] 03:11:00* Test Item Value Reference Range Interpretation Comments SODIUM (test code = NA) 141 mmol/L 136-145 N POTASSIUM (test code = K) 4.0 mmol/L 3.5-5.1 N CHLORIDE (test code = CL) 101.0 mmol/L 98-107 N CARBON DIOXIDE (test code = CO2) mmol/L 21-32 ANION GAP (test code = GAP) 10-20 GLUCOSE (test code = GLU) mg/dL 74-106 BLOOD UREA NITROGEN (test code = BUN) mg/dL 7-18 GLOMERULAR FILTRATION RATE (test code = GFR) mL/min >=60 CREATININE (test code = CREAT) mg/dL 0.55-1.02 BUN/CREATININE RATIO (test code = BUN/CREA) 10-20 CALCIUM (test code = CA) mg/dL 8.5-10.1 [id number] 03:11:00* Test Item Value Reference Range Interpretation Comments PHOSPHORUS (test code = PHOS) mg/dL 2.5-4.9 [id number] 03:11:00* Test Item Value Reference Range Interpretation Comments MAGNESIUM (test code = MAG) mg/dL 1.8-2.4 CBC W/O [id number] 02:52:00* Test Item Value Reference Range Interpretation Comments WHITE BLOOD CELL (test code = WBC) 10.4 K/mm3 4.5-12.5 N RED BLOOD CELL (test code = RBC) 3.13 mill/mm3 3.7-5.2 L HEMOGLOBIN (test code = HGB) 8.3 gram/dL 11.5-15.5 L HEMATOCRIT (test code = HCT) 27.5 % 36.0-46.0 L MEAN CELL VOLUME (test code = MCV) 87.9 fL 80-98 N MEAN CELL HGB (test code = MCH) 26.5 picogram 27.0-33.0 L MEAN CELL HGB CONCETRATION (test code = MCHC) 30.2 gram/dL 33.0-36. 0 L RED CELL DISTRIBUTION WIDTH (test code = RDW) 16.1 % 11.6-16. 2 N PLATELET COUNT (test code = PLT) 190 K/mm3 150-450 N MEAN PLATELET VOLUME (test code = MPV) 13.4 fL 6.7-11.0 H [id number] 23:25:00* Test Item Value Reference Range Interpretation Comments GLUBED (test code = GLUBED) 165 mg/dL 74-106 H Performed by certified carousel operator at [facility] [id number] 17:39:00* Test Item Value Reference Range Interpretation Comments GLUBED (test code = GLUBED) 134 mg/dL 74-106 H Performed by certified carousel operator at [facility] [id number] 12:35:00* Test Item Value Reference Range Interpretation Comments GLUBED (test code = GLUBED) 173 mg/dL 74-106 H Performed by certified carousel operator at [facility] - XR CHEST 1 [id number] 07:17:00 FAX: Andrew Guerra [phone] [place]: B St: ADM FAX: Josh Roldan MD [phone] FAX: Y Kevin Veronica MD [phone] Name: DAYANA RICHARDSON [facility] : 1960 Age/S: 59/F [address] [facility] Unit #: [id number] Loc: [address] [address] Phys: Andrew Guerra Acct: [id number] Dis Date: Status: ADM IN ONE #: [phone] Exam Date: 08/30/2019526 FAX #: [phone] Reason: updated pulm view EXAMS: CPT CODE: [id number] XR CHEST 1 V 01025 HISTORY: Respi ratory failure. COMPARISON: Previous day. Location: TH. NG tube extends below the diaphragm. Patchy bibasal infiltrat es are unchanged. Hyperinflation. No effusion. No congestion. Mild cardiomegaly. IMPRESSION: Unchanged patchy bilateral infiltrates. at 0717 Reported and signed by: Telly Arguello M.D. CC: Andrew Guerra; Josh Roldan MD; eKvin Veronica MD Technologist: CAMERON Weiss Trnscrd Date/Time/By: 08/30/2019 (0717) : By: [email or web address] Orig Print D/T : S: 08/30/2019 (9826) PAGE 1 Sig magui Report HEPATIC FUNCTION [id number] 07:02:00* Test Item Value Reference Range Interpretation Comments TOTAL PROTEIN (test code = PROT) 5.4 gram/dL 6.4-8.2 L ALBUMIN (test code = ALB) 1.9 g/dL 3.4-5.0 L GLOBULIN (test code = GLOB) 3.5 gram/dL 2.7-4.2 N ALBUMIN/GLOBULIN RATIO (test code = A/G) 0.5 0.75-1.50 L BILIRUBIN TOTAL (test code = BILT) 0.20 mg/dL 0.0-1.0 N BILIRUBIN DIRECT (test code = BILD) 0.09 mg/dL 0.0-0.20 N SGOT/AST (test code = AST) 37 IUnit/L 15-37 N SGPT/ALT (test code = ALT) 26 IUnit/L 12-78 N ALKALINE PHOSPHATASE TOTAL (test code = ALKP) 167 IUnit/L 45-117 H Note change in reference range due to change in reagent. [id number] 05:26:00* Test Item Value Reference Range Interpretation Comments GLUBED (test code = GLUBED) 170 mg/dL 74-106 H Performed by certified carousel operator at [facility] BASIC METABOLIC [id number] 02:07:00* Test Item Value Reference Range Interpretation Comments SODIUM (test code = NA) 141 mmol/L 136-145 POTASSIUM (test code = K) 3.4 mmol/L 3.5-5.1 L CHLORIDE (test code = CL) 102.0 mmol/L 98-107 N CARBON DIOXIDE (test code = CO2) 34.0 mmol/L 21-32 H ANION GAP (test code = GAP) 8.4 10-20 L GLUCOSE (test code = GLU) 262 mg/dL 74-106 H BLOOD UREA NITROGEN (test code = BUN) 14 mg/dL 7-18 N GLOMERULAR FILTRATION RATE (test code = GFR) > 60 mL/min >=60 Estimated GFR by using Modified MDRD formula.Chronic kidney disease is defined as either kidney damageor GFR <60 mL/min/1.73 m2 for >3 months. CREATININE (test code = CREAT) 0.70 mg/dL 0.55-1.02 N Note change in reference range due to change in reagent. BUN/CREATININE RATIO (test code = BUN/CREA) 20.0 10-20 N CALCIUM (test code = CA) 7.9 mg/dL 8.5-10.1 L [id number] 02:07:00* Test Item Value Reference Range Interpretation Comments PHOSPHORUS (test code = PHOS) 3.6 mg/dL 2.5-4.9 N [id number] 02:07:00* Test Item Value Reference Range Interpretation Comments MAGNESIUM (test code = MAG) 1.5 mg/dL 1.8-2.4 L CBC W/O [id number] 01:49:00* Test Item Value Reference Range Interpretation Comments WHITE BLOOD CELL (test code = WBC) 7.6 K/mm3 4.5-12.5 N RED BLOOD CELL (test code = RBC) 3.25 mill/mm3 3.7-5.2 L HEMOGLOBIN (test code = HGB) 8.7 gram/dL 11.5-15.5 L HEMATOCRIT (test code = HCT) 27.5 % 36.0-46.0 L MEAN CELL VOLUME (test code = MCV) 84.6 fL 80-98 N MEAN CELL HGB (test code = MCH) 26.8 picogram 27.0-33.0 L MEAN CELL HGB CONCETRATION (test code = MCHC) 31.6 gram/dL 33.0-36. 0 L RED CELL DISTRIBUTION WIDTH (test code = RDW) 15.9 % 11.6-16. 2 N PLATELET COUNT (test code = PLT) 157 K/mm3 150-450 N MEAN PLATELET VOLUME (test code = MPV) TEST NOT PERFORMED fL 6.7-11 .0 Unable to determine due to platelet abnormality [id number] 23:59:00* Test Item Value Reference Range Interpretation Comments GLUBED (test code = GLUBED) 245 mg/dL 74-106 H Performed by certified carousel operator at [facility] [id number] 20:20:00* Test Item Value Reference Range Interpretation Comments GLUBED (test code = GLUBED) 190 mg/dL 74-106 H Performed by certified carousel operator at [facility] [id number] 17:53:00* Test Item Value Reference Range Interpretation Comments GLUBED (test code = GLUBED) 207 mg/dL 74-106 H Performed by certified carousel operator at [facility] ARTERIAL BLOOD [id number] 11:35:00* Test Item Value Reference Range Interpretation Comments ARTERIAL BLOOD GAS PH (test code = PHA) 7.40 7.35-7.45 N ARTERIAL BLOOD GAS PCO2 (test code = PCO2A) 52.7 mm Hg 35-45 H ARTERIAL BLOOD GAS PO2 (test code = PO2A) 67.5 mmHg 80-100 L BICARBONATE TOTAL HCO3 (test code = HCO3) 31.8 mmol/L 23.0-27.0 H BASE EXCESS (test code = TONIA) 5.9 mmol/L -3.0-5.0 H ABG O2 SATURATION (test code = SATA) 92.4 % 90.0-98.0 N ABG TYPE (test code = TYPEA) Arterial FIO2 (test code = FIO2A) 40.0 ABG SITE (test code = SITEA) Lt RADIAL ARTERY MODIFIED ALLENS (test code = MODALL) Unable CHECK PERFORMED SODIUM (test code = NA/ABG) 137.9 mEq/L 135-148 N POTASSIUM (test code = K/ABG) 3.5 mEq/L 3.5-4.5 N CHLORIDE (test code = CL/ABG) 101 mEq/L 98-106 N GLUCOSE (test code = GLU/ABG) 145 mg/dL 74-99 H HEMATOCRIT (test code = HCT/ABG) 30 % 35-47 L IONIZED CALCIUM (test code = CAIABG) 1.13 mmol/L 1.1-1.37 N TOTAL HGB (test code = THB) 10.2 gram/dL 11.5-15.5 L HGB O2 SAT (test code = HBOSAT) 91.9 % 94.00-98.00 L CARBOXYHEMOGLOBIN (test code = HOHGBT) 0.2 %totalHg 0.5-1.5 LL Results called to and read back by Sharath 11:34 - 08/29/2019; by RON METHEMOGLOBIN (test code = METHGB) 0.3 % 0.0-1.50 N O2 CONTENT (test code = O2CT) 13.2 % vol 18.0-22.0 L [id number] 11:18:00* Test Item Value Reference Range Interpretation Comments GLUBED (test code = GLUBED) 125 mg/dL 74-106 H Performed by certified carousel operator at [facility] [id number] 09:58:00* Test Item Value Reference Range Interpretation Comments GLUBED (test code = GLUBED) 102 mg/dL 74-106 N Performed by certified carousel operator at [facility] [id number] 09:58:00* Test Item Value Reference Range Interpretation Comments GLUBED (test code = GLUBED) 59 mg/dL 74-106 L Performed by certified carousel operator at [facility] [id number] 08:02:00* Test Item Value Reference Range Interpretation Comments GLUBED (test code = GLUBED) 66 mg/dL 74-106 L Performed by certified carousel operator at [facility] [id number] 07:06:00* Test Item Value Reference Range Interpretation Comments GLUBED (test code = GLUBED) 75 mg/dL 74-106 N Performed by certified carousel operator at [facility] - XR CHEST 1 [id number] 07:04:00 FAX: Andrew Guerra [phone] [place]: St: ADM FAX: Josh Roldan MD [phone] FAX: Kevin Bass MD [phone] Name: DAYANA RICHARDSON [facility] : 1960 Age/S: 59/F [address] [facility] Unit #: [id number] Loc: [address] [address] Phys: Andrew Guerra Acct: [id number] Dis Date: Status: ADM IN ONE #: [phone] Exam Date: 08/29/2019 0535 FAX #: [phone] Reason: updated pulm view EXAMS: CPT CODE: [id number] XR CHEST 1 V 01234 HISTORY: Respi ratory failure with pneumonia and sepsis. COMPARISON: Previous day . Location: [facility]. ET tube is no longer seen. Overlyi ng chin slightly obscures the apices. NG tube extends below the diaphragm . Patchy bilateral infiltrates are unchanged. No effusion or congestion. Mild cardiomegaly. IMPRESSION: Unchang ed patchy bilateral infiltrates. at 0704 Reported and signed by: Oli Arguello M.D. CC: Andrew Guerra; Josh Roldan MD; Kevin Veronica MD Technologist: CAMERON BOONE JR; Juliann Weiss Trnscrd Date/Time/By: 08/29/2019 (703) : By: [email or web address] Orig Print D/T: S: 08/29/2019 (07) PAGE 1 Signed Report [id number] 06:16:00* Test Item Value Reference Range Interpretation Comments GLUBED (test code = GLUBED) 93 mg/dL 74-106 N Performed by certified carousel operator at [facility] [id number] 05:48:00* Test Item Value Reference Range Interpretation Comments GLUBED (test code = GLUBED) 31 mg/dL 74-106 LL Test performed as P.O.C. by nursing staff.Performed by certified carousel operator at [facility] BASIC METABOLIC [id number] 02:39:00* Test Item Value Reference Range Interpretation Comments SODIUM (test code = NA) 147 mmol/L 136-145 H POTASSIUM (test code = K) 3.8 mmol/L 3.5-5.1 N CHLORIDE (test code = CL) 109.0 mmol/L 98-107 H CARBON DIOXIDE (test code = CO2) 32.0 mmol/L 21-32 N ANION GAP (test code = GAP) 9.8 10-20 L GLUCOSE (test code = GLU) 66 mg/dL 74-106 L BLOOD UREA NITROGEN (test code = BUN) 20 mg/dL 7-18 H GLOMERULAR FILTRATION RATE (test code = GFR) > 60 mL/min >=60 Estimated GFR by using Modified MDRD formula.Chronic kidney disease is defined as either kidney damageor GFR <60 mL/min/1.73 m2 for >3 months. CREATININE (test code = CREAT) 0.80 mg/dL 0.55-1.02 N Note change in reference range due to change in reagent. BUN/CREATININE RATIO (test code = BUN/CREA) 25.0 10-20 H CALCIUM (test code = CA) 7.8 mg/dL 8.5-10.1 L [id number] 02:39:00* Test Item Value Reference Range Interpretation Comments PHOSPHORUS (test code = PHOS) 3.7 mg/dL 2.5-4.9 N [id number] 02:39:00* Test Item Value Reference Range Interpretation Comments MAGNESIUM (test code = MAG) 1.9 mg/dL 1.8-2.4 N CBC W/O [id number] 02:34:00* Test Item Value Reference Range Interpretation Comments WHITE BLOOD CELL (test code = WBC) 7.6 K/mm3 4.5-12.5 N RED BLOOD CELL (test code = RBC) 3.17 mill/mm3 3.7-5.2 L HEMOGLOBIN (test code = HGB) 8.4 gram/dL 11.5-15.5 L HEMATOCRIT (test code = HCT) 27.9 % 36.0-46.0 L MEAN CELL VOLUME (test code = MCV) 88.0 fL 80-98 N MEAN CELL HGB (test code = MCH) 26.5 picogram 27.0-33.0 L MEAN CELL HGB CONCETRATION (test code = MCHC) 30.1 gram/dL 33.0-36. 0 L RED CELL DISTRIBUTION WIDTH (test code = RDW) 16.3 % 11.6-16. 2 H PLATELET COUNT (test code = PLT) 159 K/mm3 150-450 N MEAN PLATELET VOLUME (test code = MPV) 14.3 fL 6.7-11.0 H BASIC METABOLIC [id number] 02:31:00* Test Item Value Reference Range Interpretation Comments SODIUM (test code = NA) 147 mmol/L 136-145 H POTASSIUM (test code = K) 3.8 mmol/L 3.5-5.1 N CHLORIDE (test code = CL) 109.0 mmol/L 98-107 H CARBON DIOXIDE (test code = CO2) mmol/L 21-32 ANION GAP (test code = GAP) 10-20 GLUCOSE (test code = GLU) mg/dL 74-106 BLOOD UREA NITROGEN (test code = BUN) mg/dL 7-18 GLOMERULAR FILTRATION RATE (test code = GFR) mL/min >=60 CREATININE (test code = CREAT) mg/dL 0.55-1.02 BUN/CREATININE RATIO (test code = BUN/CREA) 10-20 CALCIUM (test code = CA) mg/dL 8.5-10.1 [id number] 02:31:00* Test Item Value Reference Range Interpretation Comments PHOSPHORUS (test code = PHOS) mg/dL 2.5-4.9 [id number] 02:31:00* Test Item Value Reference Range Interpretation Comments MAGNESIUM (test code = MAG) mg/dL 1.8-2.4 [id number] 01:14:00* Test Item Value Reference Range Interpretation Comments GLUBED (test code = GLUBED) 68 mg/dL 74-106 L Performed by certified carousel operator at [facility] [id number] 22:09:00* Test Item Value Reference Range Interpretation Comments GLUBED (test code = GLUBED) 105 mg/dL 74-106 N Performed by certified carousel operator at [facility] ARTERIAL BLOOD [id number] 18:48:00* Test Item Value Reference Range Interpretation Comments ARTERIAL BLOOD GAS PH (test code = PHA) 7.35 7.35-7.45 N ARTERIAL BLOOD GAS PCO2 (test code = PCO2A) 53.3 mm Hg 35-45 H ARTERIAL BLOOD GAS PO2 (test code = PO2A) 87.8 mmHg 80-100 N BICARBONATE TOTAL HCO3 (test code = HCO3) 28.5 mmol/L 23.0-27.0 H BASE EXCESS (test code = TONIA) 2.2 mmol/L -3.0-5.0 N ABG O2 SATURATION (test code = SATA) 95.1 % 90.0-98.0 N ABG TYPE (test code = TYPEA) Arterial FIO2 (test code = FIO2A) 30.0 ABG VENT MODE (test code = MODEA) AVAPS ABG VENT RESP RATE (test code = RRA) 18.0 per min ABG TIDAL VOLUME (test code = TVA) 500.0 mL ABG PEEP (test code = PEEPA) 8.0 cmH2O ABG SITE (test code = SITEA) Rt RADIAL ARTERY MODIFIED ALLENS (test code = MODALL) Yes CHECK PERFORMED HEMATOCRIT (test code = HCT/ABG) 30 % 35-47 L TOTAL HGB (test code = THB) 10.1 gram/dL 11.5-15.5 L HGB O2 SAT (test code = HBOSAT) 94.7 % 94.00-98.00 N CARBOXYHEMOGLOBIN (test code = HOHGBT) 0.0 %totalHg 0.5-1.5 LL Results called to and read back by Bouchra 18:47 - 08/28/2019; by DESIRE METHEMOGLOBIN (test code = METHGB) 0.4 % 0.0-1.50 N O2 CONTENT (test code = O2CT) 13.6 % vol 18.0-22.0 L [id number] 18:22:00* Test Item Value Reference Range Interpretation Comments GLUBED (test code = GLUBED) 95 mg/dL 74-106 N Performed by certified carousel operator at [facility] [id number] 12:22:00* Test Item Value Reference Range Interpretation Comments GLUBED (test code = GLUBED) 183 mg/dL 74-106 H Performed by certified carousel operator at [facility] [id number] 10:09:00* Test Item Value Reference Range Interpretation Comments VANCOMYCIN (test code = VANCO) 12.3 UG/ML 5.0-45.0 N - XR CHEST 1 [id number] 07:32:00 FAX: Andrew Guerra [phone] [place]: B St: ADM FAX: Josh Roldan MD [phone] FAX: Kevin Bass MD [phone] Name: DAYANA RICHARDSON [facility] : 1960 Age/S: 59/F [address] Unit #: [id number] Loc: [place] [address] Phys: Andrew Guerra Acct: [id number] Dis Date: Status: ADM IN ONE #: [phone] Exam Date: 08/28/2019 0535 FAX #: [phone] Reason: updated pulm view EXAMS: CPT CODE: [id number] XR CHEST 1 V 15649 HISTORY: Respi ratory failure and sepsis with pneumonia. COMPARISON: Previous day . Location: [facility]. ET tube and NG tube noted. NG tube tip is difficult to assess due to technique. ET tube is in good position. Patchy bibasal infiltrates, greater on the left appear unchanged. Small effusions. Dependent changes. Mild cardiomegaly. IMPRES ÁNGEL: NG tube tip is not clearly visible and appears to extend to the GE junction. This should be advanced 5 to 10 cm for better posi tioning. Patchy bibasal infiltrates, greater on the left appear unchang ed. at 0732 Reported and signed by: Telly Arguello M.D. CC: Andrew Guerra; Josh Roldan MD; Kevin Veronica MD Technologis t: CAMERON BOONE JR; Juliann Weiss Trnscrd Date/Time/By: 08/28/2019 (0732) : By: [email or web address] Orig Print D/T: S: 08/28/2019 (0735) PAGE 1 Signed Report [id number] 05:06:00* Test Item Value Reference Range Interpretation Comments GLUBED (test code = GLUBED) 165 mg/dL 74-106 H Performed by certified carousel operator at [facility] BASIC METABOLIC [id number] 02:00:00* Test Item Value Reference Range Interpretation Comments SODIUM (test code = NA) 143 mmol/L 136-145 N POTASSIUM (test code = K) 3.6 mmol/L 3.5-5.1 N CHLORIDE (test code = CL) 108.0 mmol/L 98-107 H CARBON DIOXIDE (test code = CO2) 28.0 mmol/L 21-32 N ANION GAP (test code = GAP) 10.6 10-20 N GLUCOSE (test code = GLU) 202 mg/dL 74-106 H BLOOD UREA NITROGEN (test code = BUN) 22 mg/dL 7-18 H GLOMERULAR FILTRATION RATE (test code = GFR) > 60 mL/min >=60 Estimated GFR by using Modified MDRD formula.Chronic kidney disease is defined as either kidney damageor GFR <60 mL/min/1.73 m2 for >3 months. CREATININE (test code = CREAT) 0.80 mg/dL 0.55-1.02 N Note change in reference range due to change in reagent. BUN/CREATININE RATIO (test code = BUN/CREA) 27.5 10-20 H CALCIUM (test code = CA) 7.4 mg/dL 8.5-10.1 L [id number] 02:00:00* Test Item Value Reference Range Interpretation Comments PHOSPHORUS (test code = PHOS) 1.6 mg/dL 2.5-4.9 L [id number] 02:00:00* Test Item Value Reference Range Interpretation Comments MAGNESIUM (test code = MAG) 1.7 mg/dL 1.8-2.4 L BASIC METABOLIC [id number] 01:54:00* Test Item Value Reference Range Interpretation Comments SODIUM (test code = NA) 143 mmol/L 136-145 N POTASSIUM (test code = K) 3.6 mmol/L 3.5-5.1 N CHLORIDE (test code = CL) 108.0 mmol/L 98-107 H CARBON DIOXIDE (test code = CO2) mmol/L 21-32 ANION GAP (test code = GAP) 10-20 GLUCOSE (test code = GLU) mg/dL 74-106 BLOOD UREA NITROGEN (test code = BUN) mg/dL 7-18 GLOMERULAR FILTRATION RATE (test code = GFR) mL/min >=60 CREATININE (test code = CREAT) mg/dL 0.55-1.02 BUN/CREATININE RATIO (test code = BUN/CREA) 10-20 CALCIUM (test code = CA) mg/dL 8.5-10.1 [id number] 01:54:00* Test Item Value Reference Range Interpretation Comments PHOSPHORUS (test code = PHOS) mg/dL 2.5-4.9 [id number] 01:54:00* Test Item Value Reference Range Interpretation Comments MAGNESIUM (test code = MAG) mg/dL 1.8-2.4 CBC W/O [id number] 01:36:00* Test Item Value Reference Range Interpretation Comments WHITE BLOOD CELL (test code = WBC) 9.9 K/mm3 4.5-12.5 N RED BLOOD CELL (test code = RBC) 3.23 mill/mm3 3.7-5.2 L HEMOGLOBIN (test code = HGB) 8.6 gram/dL 11.5-15.5 L HEMATOCRIT (test code = HCT) 26.9 % 36.0-46.0 L MEAN CELL VOLUME (test code = MCV) 83.3 fL 80-98 N MEAN CELL HGB (test code = MCH) 26.6 picogram 27.0-33.0 L MEAN CELL HGB CONCETRATION (test code = MCHC) 32.0 gram/dL 33.0-36. 0 L RED CELL DISTRIBUTION WIDTH (test code = RDW) 16.2 % 11.6-16. 2 N PLATELET COUNT (test code = PLT) 168 K/mm3 150-450 N MEAN PLATELET VOLUME (test code = MPV) 13.9 fL 6.7-11.0 H [id number] 00:42:00* Test Item Value Reference Range Interpretation Comments GLUBED (test code = GLUBED) 185 mg/dL 74-106 H Performed by certified carousel operator at [facility] [id number] 21:14:00* Test Item Value Reference Range Interpretation Comments GLUBED (test code = GLUBED) 170 mg/dL 74-106 H Performed by certified carousel operator at [facility] [id number] 18:42:00* Test Item Value Reference Range Interpretation Comments GLUBED (test code = GLUBED) 197 mg/dL 74-106 H Performed by certified carousel operator at [facility] FE W/TOTAL IRON BINDING CAP.2019-08-27 15:41:00* Test Item Value Reference Range Interpretation Comments SERUM IRON (test code = IRON) 9 ug/dL 50-175 L TOTAL IRON BINDING CAPACITY (test code = TIBC) 139 mcg/dL 250-450 L IRON SATURATION (test code = FESAT) 6.47 % 13-45 L [id number] 12:14:00* Test Item Value Reference Range Interpretation Comments GLUBED (test code = GLUBED) 338 mg/dL 74-106 H Performed by certified carousel operator at [facility] - XR CHEST 1 [id number] 07:36:00 FAX: Andrew Guerra [phone] [place]: B St: ADM FAX: Josh Roldan MD [phone] FAX: Y Kevin Veronica MD [phone] Name: DAYANA RICHARDSON [facility] : 1960 Age/S: 59/F [address] Unit #: [id number] Loc: V.S[address] [place] [address] Phys: Andrew Guerra Acct: [id number] Dis Date: Status: ADM IN ONE #: [phone] Exam Date: 08/27/2019 0340 FAX #: [phone] Reason: updated pulm view EXAMS: CPT CODE: [id number] XR CHEST 1 V 93933 CLINICAL HISTO RY: Respiratory failure, pneumonia, sepsis TECHNIQUE: AP chest x-r ay COMPARISON: Previous day. IMPRESSION: Improved patchy bibasilar airspace opacification. No pleural effusion. Normal heart size. Atherosclerotic vascular calcification of the thoracic aorta. ET tube and NG tube. LOCA TION: LP Electronically Signed by Steph Gray D.O. on 08/27 at 0736 Reported and signed by: Steph Gray D.O. CC: Andrew Guerra; Josh Roldan MD; Kevin Veronica MD chnologist: Robert Washington RT(R); SONJA STEPHEN RT(R) Trnscrd Date/ Time/By: 08/27/2019 (0736) : By: [email or web address] Orig Print D/T: S: 08/27/19 (5884) PAGE 1 Signed Report [id number] 05:23:00* Test Item Value Reference Range Interpretation Comments GLUBED (test code = GLUBED) 254 mg/dL 74-106 H Performed by certified carousel operator at [facility] CBC W/O [id number] 00:51:00* Test Item Value Reference Range Interpretation Comments WHITE BLOOD CELL (test code = WBC) 7.8 K/mm3 4.5-12.5 N RED BLOOD CELL (test code = RBC) 3.11 mill/mm3 3.7-5.2 L HEMOGLOBIN (test code = HGB) 8.5 gram/dL 11.5-15.5 L HEMATOCRIT (test code = HCT) 26.2 % 36.0-46.0 L MEAN CELL VOLUME (test code = MCV) 84.2 fL 80-98 N MEAN CELL HGB (test code = MCH) 27.3 picogram 27.0-33.0 N MEAN CELL HGB CONCETRATION (test code = MCHC) 32.4 gram/dL 33.0-36. 0 L RED CELL DISTRIBUTION WIDTH (test code = RDW) 16.1 % 11.6-16. 2 N PLATELET COUNT (test code = PLT) 163 K/mm3 150-450 N MEAN PLATELET VOLUME (test code = MPV) 13.9 fL 6.7-11.0 H BASIC METABOLIC [id number] 00:50:00* Test Item Value Reference Range Interpretation Comments SODIUM (test code = NA) 142 mmol/L 136-145 N POTASSIUM (test code = K) 3.1 mmol/L 3.5-5.1 L CHLORIDE (test code = CL) 105.0 mmol/L 98-107 N CARBON DIOXIDE (test code = CO2) 25.0 mmol/L 21-32 N ANION GAP (test code = GAP) 15.1 10-20 N GLUCOSE (test code = GLU) 294 mg/dL 74-106 H BLOOD UREA NITROGEN (test code = BUN) 21 mg/dL 7-18 H GLOMERULAR FILTRATION RATE (test code = GFR) > 60 mL/min >=60 Estimated GFR by using Modified MDRD formula.Chronic kidney disease is defined as either kidney damageor GFR <60 mL/min/1.73 m2 for >3 months. CREATININE (test code = CREAT) 0.90 mg/dL 0.55-1.02 N Note change in reference range due to change in reagent. BUN/CREATININE RATIO (test code = BUN/CREA) 23.3 10-20 H CALCIUM (test code = CA) 7.0 mg/dL 8.5-10.1 L [id number] 00:50:00* Test Item Value Reference Range Interpretation Comments PHOSPHORUS (test code = PHOS) 2.8 mg/dL 2.5-4.9 N [id number] 00:50:00* Test Item Value Reference Range Interpretation Comments MAGNESIUM (test code = MAG) 1.6 mg/dL 1.8-2.4 L BASIC METABOLIC [id number] 00:47:00* Test Item Value Reference Range Interpretation Comments SODIUM (test code = NA) 142 mmol/L 136-145 N POTASSIUM (test code = K) 3.1 mmol/L 3.5-5.1 L CHLORIDE (test code = CL) 105.0 mmol/L 98-107 N CARBON DIOXIDE (test code = CO2) mmol/L 21-32 ANION GAP (test code = GAP) 10-20 GLUCOSE (test code = GLU) mg/dL 74-106 BLOOD UREA NITROGEN (test code = BUN) mg/dL 7-18 GLOMERULAR FILTRATION RATE (test code = GFR) mL/min >=60 CREATININE (test code = CREAT) mg/dL 0.55-1.02 BUN/CREATININE RATIO (test code = BUN/CREA) 10-20 CALCIUM (test code = CA) mg/dL 8.5-10.1 [id number] 00:47:00* Test Item Value Reference Range Interpretation Comments PHOSPHORUS (test code = PHOS) mg/dL 2.5-4.9 [id number] 00:47:00* Test Item Value Reference Range Interpretation Comments MAGNESIUM (test code = MAG) mg/dL 1.8-2.4 [id number] 00:15:00* Test Item Value Reference Range Interpretation Comments GLUBED (test code = GLUBED) 266 mg/dL 74-106 H Performed by certified carousel operator at [facility] [id number] 19:16:00* Test Item Value Reference Range Interpretation Comments GLUBED (test code = GLUBED) 178 mg/dL 74-106 H Performed by certified carousel operator at [facility] - CT ABD PELVIS W/O [id number] 15:13:00 Name: DAYANA RICHARDSON [facility] : 1960 Age/S: 59 / F [address] [facility] Unit #: [id number] Loc: [place] [address] Phys: Chuck Orourke MD Acct: [id number] Dis Date: Status: ADM IN PHONE #: [phone] Exam Date: 08/26/2019 1451 FAX #: [phone] Reason: fever EXAMS: CPT CODE: [id number] CT ABD PELVIS W/O CONT 04365 REASON FOR EXAM: fever EXAM ORDER DATE: 08/26/2019 10:53 AM Ordering: Chuck Orourke MD Attending:Josh Roldan MD Location: PROCEDURE: - CT ABD PELVIS W/O CONT COMPARISON: FINDINGS: CT images of the abdomen and pelvis were obtained without IV and without oral contrast at 5mm. Dose modulation, iterative reconstruction, and/or weight based adjustment of the MA/KV was utilized to reduce the radiation dose to as low as reasonably achievable. The liver, spleen, pancreas are grossly within normal limits. The patient is status post cholecystectomy The kidneys are within normal limits. The urinary bladder is collapsed with a Thorne catheter The colon, small bowel, and stomach are within normal limits without evidence of obstruction. The appendix was not seen. Surgical clips in the stomach s uggestive of status post gastric surgery. No evidence of free air . The uterus was not well seen suggestive of status post hysterectomy. Th e right femoral central line seen IMPRESSION: Minimal free fluid in the pelvis a t 1513 Reported and signed by: Armando Vogt M.D. CC: Chuck Bruce MD; Josh Roldan MD; Kevin Veronica MD Technologist:Irlanda estrada RT(R),CT CTDI: DLP: Trnscb Date/Time: 08/26/2019 (1513) t.HASEEBR.VTL Orig Print D/T: S: 08/26/2019 (0907) PAGE 1 Signed Report - CT CHEST W/O [id number] 15:04:00 Name: DAYANA RICHARDSON [facility] : 1960 Age/S: 59 / F [address] Unit #: [id number] Loc: [place] [address] Phys: Chuck Orourke MD Acct: [id number] Dis Date: Status: ADM IN PHONE #: [phone] Exam Date: 08/26/2019 1455 FAX #: [phone] Reason: ?pneumonia EXAMS: CPT CODE: [id number] CT CHEST W/O CONTRAST 19325 REASON FOR EXAM: ?pneumonia EXAM ORDER DATE: 08/26/2019 10:53 AM Ordering: Chuck Orourke MD Attending:Josh Roldan MD Location: COMPARISON: PROCEDURE: - CT CHEST W/O CONTRAST FINDINGS: CT images of the chest were obtained without IV contrast. Reconstructed sagittal and coronal images of the chest were provided for interpretation. Dose modulation, iterative reconstruction, and/or weight based adjustment of the MA/KV was utilized to reduce the radiation dose to as low as reason ably achievable. The heart size is within normal limits. No evid ence of pericardial effusion. The thoracic aorta is aorta is unremar kable. No evidence of mediastinal or hilar adenopathy. The patient is intubated with the tip of the ET tube 2 cm above the [place]. The OG tu be tip is in the stomach No evidence of pleural effusion. IMPRESSION: Multinodular consolidations at the bases at 1504 Reported an d signed by: Armando Vogt M.D. CC: Chuck Orourke MD; Josh Roldan; Kevin Veronica MD Technologist:Irlanda Faye RT(R),CT CTDI: DLP : Trnscb Date/Time: 08/26/2019 (8904) t.SDR.VTL Or ig Print D/T: S: 08/26/2019 (1519) PAGE 1 Signed Rep ort [id number] 12:29:00* Test Item Value Reference Range Interpretation Comments GLUBED (test code = GLUBED) 132 mg/dL 74-106 H Performed by certified carousel operator at [facility] ARTERIAL BLOOD [id number] 10:10:00* Test Item Value Reference Range Interpretation Comments ARTERIAL BLOOD GAS PH (test code = PHA) 7.47 7.35-7.45 H ARTERIAL BLOOD GAS PCO2 (test code = PCO2A) 40.5 mm Hg 35-45 N ARTERIAL BLOOD GAS PO2 (test code = PO2A) 219.7 mmHg 80-100 H BICARBONATE TOTAL HCO3 (test code = HCO3) 28.6 mmol/L 23.0-27.0 H BASE EXCESS (test code = TONIA) 4.5 mmol/L -3.0-5.0 N ABG O2 SATURATION (test code = SATA) 99.1 % 90.0-98.0 H ABG TYPE (test code = TYPEA) Arterial FIO2 (test code = FIO2A) 70.0 ABG VENT MODE (test code = MODEA) Assist Control ABG VENT RESP RATE (test code = RRA) 18.0 per min ABG TIDAL VOLUME (test code = TVA) 450.0 mL ABG PEEP (test code = PEEPA) 8.0 cmH2O ABG SITE (test code = SITEA) Lt RADIAL ARTERY MODIFIED ALLENS (test code = MODALL) Yes CHECK PERFORMED HEMATOCRIT (test code = HCT/ABG) 23 % 35-47 L TOTAL HGB (test code = THB) 7.9 gram/dL 11.5-15.5 L HGB O2 SAT (test code = HBOSAT) 98.1 % 94.00-98.00 H CARBOXYHEMOGLOBIN (test code = HOHGBT) 0.7 %totalHg 0.5-1.5 N METHEMOGLOBIN (test code = METHGB) 0.3 % 0.0-1.50 N O2 CONTENT (test code = O2CT) 11.5 % vol 18.0-22.0 L CBC W/AUTO [id number] 09:15:00* Test Item Value Reference Range Interpretation Comments WHITE BLOOD CELL (test code = WBC) 10.7 K/mm3 4.5-12.5 N RED BLOOD CELL (test code = RBC) 2.61 mill/mm3 3.7-5.2 L HEMOGLOBIN (test code = HGB) 7.1 gram/dL 11.5-15.5 L HEMATOCRIT (test code = HCT) 23.5 % 36.0-46.0 L MEAN CELL VOLUME (test code = MCV) 90.0 fL 80-98 N MEAN CELL HGB (test code = MCH) 27.2 picogram 27.0-33.0 N MEAN CELL HGB CONCETRATION (test code = MCHC) 30.2 gram/dL 33.0-36. 0 L RED CELL DISTRIBUTION WIDTH (test code = RDW) 16.0 % 11.6-16. 2 N RED CELL DISTRIBUTION WIDTH SD (test code = RDW-SD) 52.5 fL 37 .0-51.0 H PLATELET COUNT (test code = PLT) 168 K/mm3 150-450 N MEAN PLATELET VOLUME (test code = MPV) 13.5 fL 6.7-11.0 H NEUTROPHIL % (test code = NT%) 90.5 % 39.0-69.0 H IMMATURE GRANULOCYTE % (test code = IG%) 0.5 % 0.0-5.0 N LYMPHOCYTE % (test code = LY%) 3.0 % 25.0-55.0 L MONOCYTE % (test code = MO%) 5.7 % 0.0-10.0 N EOSINOPHIL % (test code = EO%) 0.0 % 0.0-5.0 N BASOPHIL % (test code = BA%) 0.3 % 0.0-1.0 N NUCLEATED RBC % (test code = NRBC%) 0.0 % 0-0 N NEUTROPHIL # (test code = NT#) 9.67 K/mm3 1.8-7.7 H IMMATURE GRANULOCYTE # (test code = IG#) 0.05 x10 3/uL 0-0.03 H LYMPHOCYTE # (test code = LY#) 0.32 K/mm3 1.0-5.0 L MONOCYTE # (test code = MO#) 0.61 K/mm3 0-0.8 N EOSINOPHIL # (test code = EO#) 0.00 K/mm3 0.0-0.5 N BASOPHIL # (test code = BA#) 0.03 K/mm3 0.0-0.2 N NUCLEATED RBC # (test code = NRBC#) 0.00 K/mm3 0.0-0.1 N MANUAL DIFF REQUIRED (test code = MDIFF) NO - XR CHEST 1 [id number] 08:31:00 FAX: Andrew Guerra [phone] [place]: B St: ADM FAX: Josh Roldan MD [phone] FAX: Kevin Bass MD [phone] Name: DAYANA RICHARDSON [facility] : 1960 Age/S: 59/F [address] Unit #: [id number] Loc: [address] [address] Phys: Andrew Guerra Acct: [id number] Dis Date: Status: ADM IN ONE #: [phone] Exam Date: 08/26/2019 0754 FAX #: [phone] Reason: updated pulm view EXAMS: CPT CODE: [id number] XR CHEST 1 V [id number] REASON FOR EXAM: updated pulm view EXAM ORDER DATE: 08/26/2019 4:00 AM Ordering: SOHAN Roberts Attending:Johs Roldan MD Loc ation: PROCEDURE: - XR CHEST 1 V COMPARISON: 2019 FINDINGS: Portable AP frontal view of the chest obtained at 7:54 AM shows clear lungs without evidence of consolidation. There is no evidence of effusion. The heart size is minimally enlarged. Stable a ppearance of the ET tube and NG tube. Pulmonary vasculatures are minimally congested. IMPRESSION: Minimal cardiomegaly and pulmonary veno us congestion at 0831 Reported and signed by: Armando Vogt M.D. CC: Andrew Guerra; Josh Roldan MD; Kevin Veronica MD Technologist: Lyndsay GARCIA RT (R); Kavitha Newby RT(R) Trnscrd Date/Time/By: 11/2019 (0831) : By: Mayela Orig Print D/T: S: 08/26/2019 (34) PAGE 1 Signed Report [id number] 07:56:00* Test Item Value Reference Range Interpretation Comments GLUBED (test code = GLUBED) 117 mg/dL 74-106 H Performed by certified carousel operator at [facility] [id number] 07:20:00* Test Item Value Reference Range Interpretation Comments GLUBED (test code = GLUBED) 52 mg/dL 74-106 L Performed by certified carousel operator at [facility] [id number] 06:20:00* Test Item Value Reference Range Interpretation Comments MAGNESIUM (test code = MAG) 2.2 mg/dL 1.8-2.4 N [id number] 06:20:00* Test Item Value Reference Range Interpretation Comments TROPONIN-I (test code = TROPI) 0.070 ng/mL 0-0.045 HH [id number] 06:14:00* Test Item Value Reference Range Interpretation Comments MAGNESIUM (test code = MAG) 2.2 mg/dL 1.8-2.4 N [id number] 06:14:00* Test Item Value Reference Range Interpretation Comments TROPONIN-I (test code = TROPI) ng/mL 0-0.045 B-TYPE NATRIURETIC [id number] 03:54:00* Test Item Value Reference Range Interpretation Comments B-TYPE NATRIURETIC PEPTIDE (test code = BNP) 303.13 pgram/mL 0-100 H CBC W/O [id number] 03:31:00* Test Item Value Reference Range Interpretation Comments WHITE BLOOD CELL (test code = WBC) 11.9 K/mm3 4.5-12.5 N RED BLOOD CELL (test code = RBC) 2.58 mill/mm3 3.7-5.2 L HEMOGLOBIN (test code = HGB) 7.0 gram/dL 11.5-15.5 L RESULT VERIFIED BY REPEAT ANALYSIS HEMATOCRIT (test code = HCT) 23.3 % 36.0-46.0 L MEAN CELL VOLUME (test code = MCV) 90.3 fL 80-98 N MEAN CELL HGB (test code = MCH) 27.1 picogram 27.0-33.0 N MEAN CELL HGB CONCETRATION (test code = MCHC) 30.0 gram/dL 33.0-36. 0 L RED CELL DISTRIBUTION WIDTH (test code = RDW) 15.9 % 11.6-16. 2 N PLATELET COUNT (test code = PLT) 175 K/mm3 150-450 RESULT VERIFIED BY REPEAT ANALYSIS MEAN PLATELET VOLUME (test code = MPV) 13.7 fL 6.7-11.0 H [id number] 03:07:00* Test Item Value Reference Range Interpretation Comments TROPONIN-I (test code = TROPI) 0.064 ng/mL 0-0.045 HH COMMENTS TO PRODUCT DEVELOPMENT SPECIALIST: COLLECT 3 HOURS AFTER PREVIOUS SAMPLELACTIC [id number] 02:55:00* Test Item Value Reference Range Interpretation Comments LACTIC ACID (test code = LACT) 0.8 mmol/L 0.4-1.9 N BASIC METABOLIC [id number] 01:24:00* Test Item Value Reference Range Interpretation Comments SODIUM (test code = NA) 140 mmol/L 136-145 N POTASSIUM (test code = K) 4.1 mmol/L 3.5-5.1 N CHLORIDE (test code = CL) 104.0 mmol/L 98-107 N CARBON DIOXIDE (test code = CO2) 32.0 mmol/L 21-32 N ANION GAP (test code = GAP) 8.1 10-20 L GLUCOSE (test code = GLU) 102 mg/dL 74-106 N BLOOD UREA NITROGEN (test code = BUN) 12 mg/dL 7-18 N GLOMERULAR FILTRATION RATE (test code = GFR) > 60 mL/min >=60 Estimated GFR by using Modified MDRD formula.Chronic kidney disease is defined as either kidney damageor GFR <60 mL/min/1.73 m2 for >3 months. CREATININE (test code = CREAT) 0.70 mg/dL 0.55-1.02 N Note change in reference range due to change in reagent. BUN/CREATININE RATIO (test code = BUN/CREA) 17.1 10-20 N CALCIUM (test code = CA) 7.8 mg/dL 8.5-10.1 L [id number] 01:24:00* Test Item Value Reference Range Interpretation Comments PHOSPHORUS (test code = PHOS) 3.0 mg/dL 2.5-4.9 N [id number] 01:24:00* Test Item Value Reference Range Interpretation Comments MAGNESIUM (test code = MAG) 1.4 mg/dL 1.8-2.4 L ARTERIAL BLOOD [id number] 01:21:00* Test Item Value Reference Range Interpretation Comments ARTERIAL BLOOD GAS PH (test code = PHA) 7.44 7.35-7.45 N ARTERIAL BLOOD GAS PCO2 (test code = PCO2A) 49.4 mm Hg 35-45 H ARTERIAL BLOOD GAS PO2 (test code = PO2A) 453.2 mmHg 80-100 H BICARBONATE TOTAL HCO3 (test code = HCO3) 33.1 mmol/L 23.0-27.0 H BASE EXCESS (test code = TONIA) 8.2 mmol/L -3.0-5.0 HH Results called to and read back by Junaid Britton 23:59 - 08/25/2019; by Delmi BLACKMAN CUSTOMER LOYALTY REPRESENTATIVE ABG O2 SATURATION (test code = SATA) 99.3 % 90.0-98.0 H ABG TYPE (test code = TYPEA) Arterial FIO2 (test code = FIO2A) 100.0 ABG L/M (test code = L/M) 45.00 L/MIN ABG VENT MODE (test code = MODEA) Assist Control ABG VENT RESP RATE (test code = RRA) 16.0 per min ABG TIDAL VOLUME (test code = TVA) 450.0 mL ABG PEEP (test code = PEEPA) 8.0 cmH2O ABG TEMPERATURE (test code = TEMPA) 37.0 Celsius ABG SITE (test code = SITEA) Lt RADIAL ARTERY MODIFIED ALLENS (test code = MODALL) Yes CHECK PERFORMED SODIUM (test code = NA/ABG) 134.0 mEq/L 135-148 L POTASSIUM (test code = K/ABG) 3.3 mEq/L 3.5-4.5 L CHLORIDE (test code = CL/ABG) 102 mEq/L 98-106 N GLUCOSE (test code = GLU/ABG) 128 mg/dL 74-99 H HEMATOCRIT (test code = HCT/ABG) 22 % 35-47 L IONIZED CALCIUM (test code = CAIABG) 0.86 mmol/L 1.1-1.37 L TOTAL HGB (test code = THB) 7.4 gram/dL 11.5-15.5 L HGB O2 SAT (test code = HBOSAT) 98.5 % 94.00-98.00 H CARBOXYHEMOGLOBIN (test code = HOHGBT) 0.0 %totalHg 0.5-1.5 LL Results called to and read back by J STEWARTat 23:59 - 08/25/2019; by H BLACKMAN CUSTOMER LOYALTY REPRESENTATIVE METHEMOGLOBIN (test code = METHGB) 0.8 % 0.0-1.50 N O2 CONTENT (test code = O2CT) 11.6 % vol 18.0-22.0 L A-A GRADIENT (test code = AAGRADE) 210.4 mm Hg BASIC METABOLIC [id number] 01:18:00* Test Item Value Reference Range Interpretation Comments SODIUM (test code = NA) 140 mmol/L 136-145 N POTASSIUM (test code = K) 4.1 mmol/L 3.5-5.1 N CHLORIDE (test code = CL) 104.0 mmol/L 98-107 N CARBON DIOXIDE (test code = CO2) mmol/L 21-32 ANION GAP (test code = GAP) 10-20 GLUCOSE (test code = GLU) mg/dL 74-106 BLOOD UREA NITROGEN (test code = BUN) mg/dL 7-18 GLOMERULAR FILTRATION RATE (test code = GFR) mL/min >=60 CREATININE (test code = CREAT) mg/dL 0.55-1.02 BUN/CREATININE RATIO (test code = BUN/CREA) 10-20 CALCIUM (test code = CA) mg/dL 8.5-10.1 [id number] 01:18:00* Test Item Value Reference Range Interpretation Comments PHOSPHORUS (test code = PHOS) mg/dL 2.5-4.9 [id number] 01:18:00* Test Item Value Reference Range Interpretation Comments MAGNESIUM (test code = MAG) mg/dL 1.8-2.4 B-TYPE NATRIURETIC [id number] 21:55:00* Test Item Value Reference Range Interpretation Comments B-TYPE NATRIURETIC PEPTIDE (test code = BNP) 517.32 pgram/mL 0-100 H BASIC METABOLIC [id number] 21:45:00* Test Item Value Reference Range Interpretation Comments SODIUM (test code = NA) 140 mmol/L 136-145 N POTASSIUM (test code = K) 3.7 mmol/L 3.5-5.1 N CHLORIDE (test code = CL) 100.0 mmol/L 98-107 N CARBON DIOXIDE (test code = CO2) 37.0 mmol/L 21-32 H ANION GAP (test code = GAP) 6.7 10-20 L GLUCOSE (test code = GLU) 116 mg/dL 74-106 H BLOOD UREA NITROGEN (test code = BUN) 11 mg/dL 7-18 N GLOMERULAR FILTRATION RATE (test code = GFR) > 60 mL/min >=60 Estimated GFR by using Modified MDRD formula.Chronic kidney disease is defined as either kidney damageor GFR <60 mL/min/1.73 m2 for >3 months. CREATININE (test code = CREAT) 0.70 mg/dL 0.55-1.02 N Note change in reference range due to change in reagent. BUN/CREATININE RATIO (test code = BUN/CREA) 15.7 10-20 N CALCIUM (test code = CA) 8.2 mg/dL 8.5-10.1 L HEPATIC FUNCTION [id number] 21:45:00* Test Item Value Reference Range Interpretation Comments TOTAL PROTEIN (test code = PROT) 6.9 gram/dL 6.4-8.2 N ALBUMIN (test code = ALB) 2.6 g/dL 3.4-5.0 L GLOBULIN (test code = GLOB) 4.3 gram/dL 2.7-4.2 H ALBUMIN/GLOBULIN RATIO (test code = A/G) 0.6 0.75-1.50 L BILIRUBIN TOTAL (test code = BILT) 0.20 mg/dL 0.0-1.0 N BILIRUBIN DIRECT (test code = BILD) 0.09 mg/dL 0.0-0.20 N SGOT/AST (test code = AST) 18 IUnit/L 15-37 N SGPT/ALT (test code = ALT) 13 IUnit/L 12-78 N ALKALINE PHOSPHATASE TOTAL (test code = ALKP) 112 IUnit/L 45-117 N Note change in reference range due to change in reagent. [id number] 21:45:00* Test Item Value Reference Range Interpretation Comments LIPASE (test code = LIP) 74 U/L 73.0-393.0 N [id number] 21:45:00* Test Item Value Reference Range Interpretation Comments MAGNESIUM (test code = MAG) 1.5 mg/dL 1.8-2.4 L [id number] 21:45:00* Test Item Value Reference Range Interpretation Comments TROPONIN-I (test code = TROPI) 0.052 ng/mL 0-0.045 HH Results called to [id number] by VELVIEIN 08/25/19 2145Critical results verified and read back by Nurse? Y - XR ABDOMEN AP 1 [id number] 21:45:00 FAX: Kevin Bass MD [phone] [place]: St: REG FAX: Marni Lemus [phone] Name: DAYANA RICHARDSON [facility] : 1960 Age/S: 59/F [address] [facility] Unit #: [id number] Loc: [place] [address] Phys: Marni Bush MD Acct: [id number] Dis Date: Status: REG ER PHONE #: [phone] Exam Date: 08/25/20192054 FAX #: [phone] Reason: ngt placement EXAMS: CPT CODE: [id number] XR ABDOMEN AP 1 V [id number] HISTORY: ngt placement TECHNIQUE: AP abdomen x-r ay COMPARISON: Abdominal radiographs December 06, 2017 FINDINGS: Nonobstructive bowel gas pattern. Copious amount of stool is present in the colon. No intra-abdominal mass effect. Enter ic suction tube terminates in the stomach. No abnormal calci fications are observed. Cholecystectomy clips and left upper abdominal mas s like sutures are unchanged. Vertebral body height loss with oste ophytes in the lumbar spine appear similar to the prior exam. Visualized thorax is within normal limits. IMPRESSION: Enteric suction tube terminates in the stomach. Constipat ion. Location: [facility] at 2140 Reported and signed by: Austin Wylie MD CC: Kevin Veronica MD; Marni Bush MD Technologist: FRANKI STEIN; SONJA STEPHEN, RT(R) Trnscr d Date/Time/By: 08/25/2019 (2144) : By: [email or web address] Orig Print D/T: S: 0 08/25/2019 (2147) PAGE 1 Signed Re port LACTIC [id number] 21:27:00* Test Item Value Reference Range Interpretation Comments LACTIC ACID (test code = LACT) 0.6 mmol/L 0.4-1.9 N URINALYSIS [id number] 21:26:00* Test Item Value Reference Range Interpretation Comments UA COLOR (test code = COLU) YELLOW YELLOW UA APPEARANCE (test code = APPU) Cloudy CLEAR A UA GLUCOSE DIPSTICK (test code = DGLUU) NEGATIVE mg/dL NEGATIVE UA BILIRUBIN DIPSTICK (test code = BILU) NEGATIVE mg/dL NEGATIVE UA KETONE DIPSTICK (test code = KETU) NEGATIVE mg/dL NEGATIVE UA SPECIFIC GRAVITY (test code = SGU) 1.017 1.001-1.035 UA BLOOD DIPSTICK (test code = ERINN) 0.2 mg/dL (2+) mg/dL NEGATIVE A UA PH DIPSTICK (test code = EVELYN) 6.0 5.0-8.0 UA PROTEIN DIPSTICK (test code = PROU) 100 (2+) mg/dL NEGATIVE A UA UROBILINIOGEN DIPSTICK (test code = URO) Normal mg/dL NEGATIVE UA NITRITE DIPSTICK (test code = SMITH) NEGATIVE NEGATIVE UA LEUKOCYTE ESTERASE W REFLEX (test code = LEUUR) NEGATIVE Jazmine/uL NEGATIVE UA WBC (test code = WBCU) 0-5 per HPF 0-5 UA RBC (test code = RBCU) 0-2 #/HPF 0-5 UA EPITHELIAL CELLS (test code = EPIU) FEW per HPF FEW UA BACTERIA (test code = BACU) FEW #/HPF NONE A UA MUCUS (test code = MUCU) FEW #/LPF FEW UA AMORPHOUS SEDIMENT (test code = AMORU) FEW #/LPF NONE Urine Source? Clean Catch- XR CHEST 1 [id number] 21:24:00 FAX: Kevin Bass MD [phone] [place]: B St: REG FAX: Marni Lemus [phone] Name: DAYANA RICHARDSON [facility] : 1960 Age/S: 59/F [address] Unit #: [id number] Loc: [place] [address] Phys: Marni Bush MD Acct: [id number] Dis Date: Status: REG ER PHONE #: [phone] Exam Date: 08/25/20192054 FAX #: [phone] Reason: Shortness of Breath EXAMS: CPT CODE: [id number] XR CHEST 1 V 73978 REASON FOR EXAM: Shortness of Breath Exam Order Date: 08/25/2019 8:28 PM Ordering M.D.: Marni Bush MD PROCEDURE: - XR CHEST 1 V COMPARISON: 2 view chest x-ray August 21, 2019 FINDINGS: The patient has been int ubated. ET tube terminates at the level of the clavicles and appears to te rminate approximately 6.4 cm above the [place]. Advancement by 2 7 m is rec ommended. Enteric suction tube has been inserted and stomach. There are patchy airspace opacities in the lung bases which may represen t pulmonary edema and/or pneumonia. Atelectatic changes cannot be excluded . Cardiac mediastinal silhouette is normal in size. There are degenerative changes in the spine. IMPRESSION: Patchy airspace opacities in the lung bases may represent pulmonary alan ma and/or pneumonia. However the lungs are better aerated from the prior exam. Advancement of ET tube by 2 cm is recommended. Location: [facility] at 2124 Reported and signed by: Klaus Wylie MD CC: Kevin Veronica MD; Marni Bush MD Technologist: FRANKI BENSON; RT RASHMI(R) Trnscrd Date/Time/By: 08/25/2019 ( 2124) : By: [email or web address] Orig Print D/T: S: 08/25/2019 (2127) PAGE 1 Signed Report URINALYSIS [id number] 21:22:00* Test Item Value Reference Range Interpretation Comments UA COLOR (test code = COLU) YELLOW YELLOW UA APPEARANCE (test code = APPU) Cloudy CLEAR A UA GLUCOSE DIPSTICK (test code = DGLUU) NEGATIVE mg/dL NEGATIVE UA BILIRUBIN DIPSTICK (test code = BILU) NEGATIVE mg/dL NEGATIVE UA KETONE DIPSTICK (test code = KETU) NEGATIVE mg/dL NEGATIVE UA SPECIFIC GRAVITY (test code = SGU) 1.017 1.001-1.035 UA BLOOD DIPSTICK (test code = ERINN) 0.2 mg/dL (2+) mg/dL NEGATIVE A UA PH DIPSTICK (test code = EVELYN) 6.0 5.0-8.0 UA PROTEIN DIPSTICK (test code = PROU) 100 (2+) mg/dL NEGATIVE A UA UROBILINIOGEN DIPSTICK (test code = URO) Normal mg/dL NEGATIVE UA NITRITE DIPSTICK (test code = SMITH) NEGATIVE NEGATIVE UA LEUKOCYTE ESTERASE W REFLEX (test code = LEUUR) NEGATIVE Jazmine/uL NEGATIVE UA WBC (test code = WBCU) per HPF 0-5 UA RBC (test code = RBCU) per HPF 0-5 UA EPITHELIAL CELLS (test code = EPIU) per HPF Few UA BACTERIA (test code = BACU) per HPF NONE Urine Source? Clean CatchBASIC METABOLIC [id number] 21:21:00* Test Item Value Reference Range Interpretation Comments SODIUM (test code = NA) 140 mmol/L 136-145 N POTASSIUM (test code = K) 3.7 mmol/L 3.5-5.1 N CHLORIDE (test code = CL) 100.0 mmol/L 98-107 N CARBON DIOXIDE (test code = CO2) mmol/L 21-32 ANION GAP (test code = GAP) 10-20 GLUCOSE (test code = GLU) mg/dL 74-106 BLOOD UREA NITROGEN (test code = BUN) mg/dL 7-18 GLOMERULAR FILTRATION RATE (test code = GFR) mL/min >=60 CREATININE (test code = CREAT) mg/dL 0.55-1.02 BUN/CREATININE RATIO (test code = BUN/CREA) 10-20 CALCIUM (test code = CA) mg/dL 8.5-10.1 HEPATIC FUNCTION [id number] 21:21:00* Test Item Value Reference Range Interpretation Comments TOTAL PROTEIN (test code = PROT) gram/dL 6.4-8.2 ALBUMIN (test code = ALB) g/dL 3.4-5.0 GLOBULIN (test code = GLOB) gram/dL 2.7-4.2 ALBUMIN/GLOBULIN RATIO (test code = A/G) 0.75-1.50 BILIRUBIN TOTAL (test code = BILT) mg/dL 0.0-1.0 BILIRUBIN DIRECT (test code = BILD) mg/dL 0.0-0.20 SGOT/AST (test code = AST) IUnit/L 15-37 SGPT/ALT (test code = ALT) IUnit/L 12-78 ALKALINE PHOSPHATASE TOTAL (test code = ALKP) IUnit/L 45-117 [id number] 21:21:00* Test Item Value Reference Range Interpretation Comments LIPASE (test code = LIP) U/L 73.0-393.0 [id number] 21:21:00* Test Item Value Reference Range Interpretation Comments MAGNESIUM (test code = MAG) mg/dL 1.8-2.4 [id number] 21:21:00* Test Item Value Reference Range Interpretation Comments TROPONIN-I (test code = TROPI) ng/mL 0-0.045 PROTHROMBIN [id number] 21:08:00* Test Item Value Reference Range Interpretation Comments PROTHROMBIN TIME PATIENT (test code = PTP) 14.9 seconds 9.0-14.0 H INTERNATIONAL NORMAL RATIO (test code = INR) 1.3 0.8-1.2 H The therapeutic range for oral anticoagulant therapy formost indications is an international normalized ratio (INR)of between 2.0 and 3.0. The recommended therapeutic INRrange for various clinical situations is listed below: Clinical Situation INR range Pulmonary e mbolism treatment (2.0-3.0)Venous thrombosis treatmentVenous thrombosis prophylaxis (high risk surgery)Prevention of systemic embolism from: Acute myocardial infarction Valvular heart disease Atrial fibrillation Mechanical prosthetic heart valves (2.5-3.5) IS PATIENT ON ANTICOAGULANTS? NTHROMBOPLASTIN TIME [id number] 21:08:00* Test Item Value Reference Range Interpretation Comments THROMBOPLASTIN TIME PARTIAL (test code = PTT) 31.8 seconds 25.0-36. 5 N IS PATIENT ON ANTICOAGULANTS? NCBC W/O [id number] 21:00:00* Test Item Value Reference Range Interpretation Comments WHITE BLOOD CELL (test code = WBC) 20.3 K/mm3 4.5-12.5 H RED BLOOD CELL (test code = RBC) 3.39 mill/mm3 3.7-5.2 L HEMOGLOBIN (test code = HGB) 9.2 gram/dL 11.5-15.5 L HEMATOCRIT (test code = HCT) 30.8 % 36.0-46.0 L MEAN CELL VOLUME (test code = MCV) 90.9 fL 80-98 N MEAN CELL HGB (test code = MCH) 27.1 picogram 27.0-33.0 N MEAN CELL HGB CONCETRATION (test code = MCHC) 29.9 gram/dL 33.0-36. 0 L RED CELL DISTRIBUTION WIDTH (test code = RDW) 15.9 % 11.6-16. 2 N PLATELET COUNT (test code = PLT) 261 K/mm3 150-450 N MEAN PLATELET VOLUME (test code = MPV) 13.2 fL 6.7-11.0 H [id number] 07:31:00* Test Item Value Reference Range Interpretation Comments GLUBED (test code = GLUBED) 152 mg/dL 74-106 H Performed by certified carousel operator at [facility] [id number] 20:39:00* Test Item Value Reference Range Interpretation Comments GLUBED (test code = GLUBED) 319 mg/dL 74-106 H Performed by certified carousel operator at [facility] [id number] 17:10:00* Test Item Value Reference Range Interpretation Comments GLUBED (test code = GLUBED) 298 mg/dL 74-106 H Performed by certified carousel operator at [facility] [id number] 16:55:00* Test Item Value Reference Range Interpretation Comments GLUBED (test code = GLUBED) 282 mg/dL 74-106 H Performed by certified carousel operator at [facility] [id number] 16:55:00* Test Item Value Reference Range Interpretation Comments GLUBED (test code = GLUBED) 263 mg/dL 74-106 H Performed by certified carousel operator at [facility] CBC W/AUTO [id number] 10:26:00* Test Item Value Reference Range Interpretation Comments WHITE BLOOD CELL (test code = WBC) 11.8 K/mm3 4.5-12.5 N RED BLOOD CELL (test code = RBC) 2.87 mill/mm3 3.7-5.2 L HEMOGLOBIN (test code = HGB) 7.7 gram/dL 11.5-15.5 L HEMATOCRIT (test code = HCT) 26.2 % 36.0-46.0 L MEAN CELL VOLUME (test code = MCV) 91.3 fL 80-98 N MEAN CELL HGB (test code = MCH) 26.8 picogram 27.0-33.0 L MEAN CELL HGB CONCETRATION (test code = MCHC) 29.4 gram/dL 33.0-36. 0 L RED CELL DISTRIBUTION WIDTH (test code = RDW) 14.7 % 11.6-16. 2 N RED CELL DISTRIBUTION WIDTH SD (test code = RDW-SD) 49.4 fL 37 .0-51.0 N PLATELET COUNT (test code = PLT) 313 K/mm3 150-450 N MEAN PLATELET VOLUME (test code = MPV) 12.7 fL 6.7-11.0 H NEUTROPHIL % (test code = NT%) 65.2 % 39.0-69.0 N IMMATURE GRANULOCYTE % (test code = IG%) 0.5 % 0.0-5.0 N LYMPHOCYTE % (test code = LY%) 18.3 % 25.0-55.0 L MONOCYTE % (test code = MO%) 15.3 % 0.0-10.0 H EOSINOPHIL % (test code = EO%) 0.3 % 0.0-5.0 N BASOPHIL % (test code = BA%) 0.4 % 0.0-1.0 N NUCLEATED RBC % (test code = NRBC%) 0.0 % 0-0 N NEUTROPHIL # (test code = NT#) 7.69 K/mm3 1.8-7.7 N IMMATURE GRANULOCYTE # (test code = IG#) 0.06 x10 3/uL 0-0.03 H LYMPHOCYTE # (test code = LY#) 2.15 K/mm3 1.0-5.0 N MONOCYTE # (test code = MO#) 1.80 K/mm3 0-0.8 H EOSINOPHIL # (test code = EO#) 0.03 K/mm3 0.0-0.5 N BASOPHIL # (test code = BA#) 0.05 K/mm3 0.0-0.2 N NUCLEATED RBC # (test code = NRBC#) 0.00 K/mm3 0.0-0.1 N MANUAL DIFF REQUIRED (test code = MDIFF) NO, ONLY SCAN NEEDED DIFFERENTIAL [id number] 10:26:00* Test Item Value Reference Range Interpretation Comments STAIN ACCEPTABILITY (test code = STN ACCEPTABLE) STAIN ACCEPTABLE ANISOCYTOSIS (test code = ANISO) 1+ MACROCYTOSIS (test code = MACR) 1+ PLATELET ESTIMATE (test code = PLTEST) ADEQUATE PLATELET MORPHOLOGY (test code = PLTMORPH) CLUMPING PRESENT BASIC METABOLIC [id number] 10:13:00* Test Item Value Reference Range Interpretation Comments SODIUM (test code = NA) 142 mmol/L 136-145 N POTASSIUM (test code = K) 3.9 mmol/L 3.5-5.1 N CHLORIDE (test code = CL) 103.0 mmol/L 98-107 N CARBON DIOXIDE (test code = CO2) 36.0 mmol/L 21-32 H ANION GAP (test code = GAP) 6.9 10-20 L GLUCOSE (test code = GLU) 229 mg/dL 74-106 H BLOOD UREA NITROGEN (test code = BUN) 22 mg/dL 7-18 H GLOMERULAR FILTRATION RATE (test code = GFR) > 60 mL/min >=60 Estimated GFR by using Modified MDRD formula.Chronic kidney disease is defined as either kidney damageor GFR <60 mL/min/1.73 m2 for >3 months. CREATININE (test code = CREAT) 0.80 mg/dL 0.55-1.02 N Note change in reference range due to change in reagent. BUN/CREATININE RATIO (test code = BUN/CREA) 27.5 10-20 H CALCIUM (test code = CA) 8.8 mg/dL 8.5-10.1 N BASIC METABOLIC [id number] 10:06:00* Test Item Value Reference Range Interpretation Comments SODIUM (test code = NA) 142 mmol/L 136-145 N POTASSIUM (test code = K) 3.9 mmol/L 3.5-5.1 N CHLORIDE (test code = CL) 103.0 mmol/L 98-107 N CARBON DIOXIDE (test code = CO2) mmol/L 21-32 ANION GAP (test code = GAP) 10-20 GLUCOSE (test code = GLU) mg/dL 74-106 BLOOD UREA NITROGEN (test code = BUN) mg/dL 7-18 GLOMERULAR FILTRATION RATE (test code = GFR) mL/min >=60 CREATININE (test code = CREAT) mg/dL 0.55-1.02 BUN/CREATININE RATIO (test code = BUN/CREA) 10-20 CALCIUM (test code = CA) mg/dL 8.5-10.1 CBC W/AUTO [id number] 09:56:00* Test Item Value Reference Range Interpretation Comments WHITE BLOOD CELL (test code = WBC) 11.8 K/mm3 4.5-12.5 N RED BLOOD CELL (test code = RBC) 2.87 mill/mm3 3.7-5.2 L HEMOGLOBIN (test code = HGB) 7.7 gram/dL 11.5-15.5 L HEMATOCRIT (test code = HCT) 26.2 % 36.0-46.0 L MEAN CELL VOLUME (test code = MCV) 91.3 fL 80-98 N MEAN CELL HGB (test code = MCH) 26.8 picogram 27.0-33.0 L MEAN CELL HGB CONCETRATION (test code = MCHC) 29.4 gram/dL 33.0-36. 0 L RED CELL DISTRIBUTION WIDTH (test code = RDW) 14.7 % 11.6-16. 2 N RED CELL DISTRIBUTION WIDTH SD (test code = RDW-SD) 49.4 fL 37 .0-51.0 N PLATELET COUNT (test code = PLT) 313 K/mm3 150-450 N MEAN PLATELET VOLUME (test code = MPV) 12.7 fL 6.7-11.0 H NEUTROPHIL % (test code = NT%) 65.2 % 39.0-69.0 N IMMATURE GRANULOCYTE % (test code = IG%) 0.5 % 0.0-5.0 N LYMPHOCYTE % (test code = LY%) 18.3 % 25.0-55.0 L MONOCYTE % (test code = MO%) 15.3 % 0.0-10.0 H EOSINOPHIL % (test code = EO%) 0.3 % 0.0-5.0 N BASOPHIL % (test code = BA%) 0.4 % 0.0-1.0 N NUCLEATED RBC % (test code = NRBC%) 0.0 % 0-0 N NEUTROPHIL # (test code = NT#) 7.69 K/mm3 1.8-7.7 N IMMATURE GRANULOCYTE # (test code = IG#) 0.06 x10 3/uL 0-0.03 H LYMPHOCYTE # (test code = LY#) 2.15 K/mm3 1.0-5.0 N MONOCYTE # (test code = MO#) 1.80 K/mm3 0-0.8 H EOSINOPHIL # (test code = EO#) 0.03 K/mm3 0.0-0.5 N BASOPHIL # (test code = BA#) 0.05 K/mm3 0.0-0.2 N NUCLEATED RBC # (test code = NRBC#) 0.00 K/mm3 0.0-0.1 N MANUAL DIFF REQUIRED (test code = MDIFF) NO, ONLY SCAN NEEDED DIFFERENTIAL [id number] 09:56:00* Test Item Value Reference Range Interpretation Comments STAIN ACCEPTABILITY (test code = STN ACCEPTABLE) CABOT RINGS (test code = CAB) MORPHOLOGY COMMENT (test code = MOC) PLATELET ESTIMATE (test code = PLTEST) PLATELET MORPHOLOGY (test code = PLTMORPH) CBC W/AUTO [id number] 09:56:00* Test Item Value Reference Range Interpretation Comments WHITE BLOOD CELL (test code = WBC) 11.8 K/mm3 4.5-12.5 N RED BLOOD CELL (test code = RBC) 2.87 mill/mm3 3.7-5.2 L HEMOGLOBIN (test code = HGB) 7.7 gram/dL 11.5-15.5 L HEMATOCRIT (test code = HCT) 26.2 % 36.0-46.0 L MEAN CELL VOLUME (test code = MCV) 91.3 fL 80-98 N MEAN CELL HGB (test code = MCH) 26.8 picogram 27.0-33.0 L MEAN CELL HGB CONCETRATION (test code = MCHC) 29.4 gram/dL 33.0-36. 0 L RED CELL DISTRIBUTION WIDTH (test code = RDW) 14.7 % 11.6-16. 2 N RED CELL DISTRIBUTION WIDTH SD (test code = RDW-SD) 49.4 fL 37 .0-51.0 N PLATELET COUNT (test code = PLT) 313 K/mm3 150-450 N MEAN PLATELET VOLUME (test code = MPV) 12.7 fL 6.7-11.0 H NEUTROPHIL % (test code = NT%) 65.2 % 39.0-69.0 N IMMATURE GRANULOCYTE % (test code = IG%) 0.5 % 0.0-5.0 N LYMPHOCYTE % (test code = LY%) 18.3 % 25.0-55.0 L MONOCYTE % (test code = MO%) 15.3 % 0.0-10.0 H EOSINOPHIL % (test code = EO%) 0.3 % 0.0-5.0 N BASOPHIL % (test code = BA%) 0.4 % 0.0-1.0 N NUCLEATED RBC % (test code = NRBC%) 0.0 % 0-0 N NEUTROPHIL # (test code = NT#) 7.69 K/mm3 1.8-7.7 N IMMATURE GRANULOCYTE # (test code = IG#) 0.06 x10 3/uL 0-0.03 H LYMPHOCYTE # (test code = LY#) 2.15 K/mm3 1.0-5.0 N MONOCYTE # (test code = MO#) 1.80 K/mm3 0-0.8 H EOSINOPHIL # (test code = EO#) 0.03 K/mm3 0.0-0.5 N BASOPHIL # (test code = BA#) 0.05 K/mm3 0.0-0.2 N NUCLEATED RBC # (test code = NRBC#) 0.00 K/mm3 0.0-0.1 N MANUAL DIFF REQUIRED (test code = MDIFF) NO, ONLY SCAN NEEDED DIFFERENTIAL [id number] 09:56:00* Test Item Value Reference Range Interpretation Comments STAIN ACCEPTABILITY (test code = STN ACCEPTABLE) CABOT RINGS (test code = CAB) MORPHOLOGY COMMENT (test code = MOC) PLATELET ESTIMATE (test code = PLTEST) PLATELET MORPHOLOGY (test code = PLTMORPH) CBC W/AUTO [id number] 09:56:00* Test Item Value Reference Range Interpretation Comments WHITE BLOOD CELL (test code = WBC) 11.8 K/mm3 4.5-12.5 N RED BLOOD CELL (test code = RBC) 2.87 mill/mm3 3.7-5.2 L HEMOGLOBIN (test code = HGB) 7.7 gram/dL 11.5-15.5 L HEMATOCRIT (test code = HCT) 26.2 % 36.0-46.0 L MEAN CELL VOLUME (test code = MCV) 91.3 fL 80-98 N MEAN CELL HGB (test code = MCH) 26.8 picogram 27.0-33.0 L MEAN CELL HGB CONCETRATION (test code = MCHC) 29.4 gram/dL 33.0-36. 0 L RED CELL DISTRIBUTION WIDTH (test code = RDW) 14.7 % 11.6-16. 2 N RED CELL DISTRIBUTION WIDTH SD (test code = RDW-SD) 49.4 fL 37 .0-51.0 N PLATELET COUNT (test code = PLT) 313 K/mm3 150-450 N MEAN PLATELET VOLUME (test code = MPV) 12.7 fL 6.7-11.0 H NEUTROPHIL % (test code = NT%) 65.2 % 39.0-69.0 N IMMATURE GRANULOCYTE % (test code = IG%) 0.5 % 0.0-5.0 N LYMPHOCYTE % (test code = LY%) 18.3 % 25.0-55.0 L MONOCYTE % (test code = MO%) 15.3 % 0.0-10.0 H EOSINOPHIL % (test code = EO%) 0.3 % 0.0-5.0 N BASOPHIL % (test code = BA%) 0.4 % 0.0-1.0 N NUCLEATED RBC % (test code = NRBC%) 0.0 % 0-0 N NEUTROPHIL # (test code = NT#) 7.69 K/mm3 1.8-7.7 N IMMATURE GRANULOCYTE # (test code = IG#) 0.06 x10 3/uL 0-0.03 H LYMPHOCYTE # (test code = LY#) 2.15 K/mm3 1.0-5.0 N MONOCYTE # (test code = MO#) 1.80 K/mm3 0-0.8 H EOSINOPHIL # (test code = EO#) 0.03 K/mm3 0.0-0.5 N BASOPHIL # (test code = BA#) 0.05 K/mm3 0.0-0.2 N NUCLEATED RBC # (test code = NRBC#) 0.00 K/mm3 0.0-0.1 N MANUAL DIFF REQUIRED (test code = MDIFF) NO, ONLY SCAN NEEDED DIFFERENTIAL [id number] 09:56:00* Test Item Value Reference Range Interpretation Comments STAIN ACCEPTABILITY (test code = STN ACCEPTABLE) MORPHOLOGY COMMENT (test code = MOC) PLATELET ESTIMATE (test code = PLTEST) PLATELET MORPHOLOGY (test code = PLTMORPH) CBC W/AUTO [id number] 09:56:00* Test Item Value Reference Range Interpretation Comments WHITE BLOOD CELL (test code = WBC) 11.8 K/mm3 4.5-12.5 N RED BLOOD CELL (test code = RBC) 2.87 mill/mm3 3.7-5.2 L HEMOGLOBIN (test code = HGB) 7.7 gram/dL 11.5-15.5 L HEMATOCRIT (test code = HCT) 26.2 % 36.0-46.0 L MEAN CELL VOLUME (test code = MCV) 91.3 fL 80-98 N MEAN CELL HGB (test code = MCH) 26.8 picogram 27.0-33.0 L MEAN CELL HGB CONCETRATION (test code = MCHC) 29.4 gram/dL 33.0-36. 0 L RED CELL DISTRIBUTION WIDTH (test code = RDW) 14.7 % 11.6-16. 2 N RED CELL DISTRIBUTION WIDTH SD (test code = RDW-SD) 49.4 fL 37 .0-51.0 N PLATELET COUNT (test code = PLT) 313 K/mm3 150-450 N MEAN PLATELET VOLUME (test code = MPV) 12.7 fL 6.7-11.0 H NEUTROPHIL % (test code = NT%) 65.2 % 39.0-69.0 N IMMATURE GRANULOCYTE % (test code = IG%) 0.5 % 0.0-5.0 N LYMPHOCYTE % (test code = LY%) 18.3 % 25.0-55.0 L MONOCYTE % (test code = MO%) 15.3 % 0.0-10.0 H EOSINOPHIL % (test code = EO%) 0.3 % 0.0-5.0 N BASOPHIL % (test code = BA%) 0.4 % 0.0-1.0 N NUCLEATED RBC % (test code = NRBC%) 0.0 % 0-0 N NEUTROPHIL # (test code = NT#) 7.69 K/mm3 1.8-7.7 N IMMATURE GRANULOCYTE # (test code = IG#) 0.06 x10 3/uL 0-0.03 H LYMPHOCYTE # (test code = LY#) 2.15 K/mm3 1.0-5.0 N MONOCYTE # (test code = MO#) 1.80 K/mm3 0-0.8 H EOSINOPHIL # (test code = EO#) 0.03 K/mm3 0.0-0.5 N BASOPHIL # (test code = BA#) 0.05 K/mm3 0.0-0.2 N NUCLEATED RBC # (test code = NRBC#) 0.00 K/mm3 0.0-0.1 N MANUAL DIFF REQUIRED (test code = MDIFF) NO, ONLY SCAN NEEDED DIFFERENTIAL [id number] 09:56:00* Test Item Value Reference Range Interpretation Comments STAIN ACCEPTABILITY (test code = STN ACCEPTABLE) CABOT RINGS (test code = CAB) MORPHOLOGY COMMENT (test code = MOC) PLATELET ESTIMATE (test code = PLTEST) PLATELET MORPHOLOGY (test code = PLTMORPH) [id number] 06:01:00* Test Item Value Reference Range Interpretation Comments GLUBED (test code = GLUBED) 183 mg/dL 74-106 H Performed by certified carousel operator at [facility] [id number] 21:15:00* Test Item Value Reference Range Interpretation Comments GLUBED (test code = GLUBED) 264 mg/dL 74-106 H Performed by certified carousel operator at [facility] [id number] 17:43:00* Test Item Value Reference Range Interpretation Comments GLUBED (test code = GLUBED) 103 mg/dL 74-106 N Performed by certified carousel operator at [facility] - XR CHEST 2 [id number] 15:48:00 FAX: Josh Roldan MD [phone] [place]: St: ADM FAX: Kevin Bass MD [phone] FAX: Kevin Marrero MD [phone] Name: DAYANA RICHARDSON [facility] : 1960 Age/S: 59/F [address] [facility] Unit #: [id number] Loc: V.[address] [place] [address] Phys: Kevin Real MD Acct: [id number] Dis Date: Status: ADM IN ONE #: [phone] Exam Date: 08/21/2019 1535 FAX #: [phone] Reason: CAP F/U EXAMS: CPT CODE: [id number] XR CHEST 2 V [id number] REASON FOR EXAM: CAP F/U Exam Order Date: 08/21/2019 12:00 AM Ordering M.D.: Kevin Real MD PROCEDURE: - XR CHEST 2 V COMPARISON: Frontal chest x-ray August 17, 2019 FIND INGS: There is mild subsegmental atelectasis in the left lung base. Ther e is persistent opacification of the right lung base with effacement of th e right hemidiaphragm. This opacity likely represents a combination of pleural effusion, atelectatic changes, and pneumonia. When compared to the most recent chest x-ray, this opacity is grossly unchanged. Ca rdiomediastinal silhouette is normal in size for technique. The mediastina l contours are within normal limits. Degenerative changes of the s pine appear similar to the prior exam. The visualized upper abdome n is within normal limits. IMPRESSION: Persisten t opacification of the right lung base appears grossly similar to the mo st recent radiograph when accounting for differences in patient position ing and imaging technique. Location: [facility] Isaak escudero Signed by Klaus Wylie MD on 08/21/2019 at 1548 Rep orted and signed by: Klaus Wylie MD CC: Josh Roldan MD; Kevin Veronica MD; Kevin Real MD Technologist: Angela Rodriguez RT(R); Jeannette Salas(R) Trnscrd Date/Time/By: 08/21/2019 (0656) : By: [email or web address] Orig Print D/T: S: 08/21/2019 (1049) PAGE 1 Signed Report [id number] 06:19:00* Test Item Value Reference Range Interpretation Comments GLUBED (test code = GLUBED) 155 mg/dL 74-106 H Performed by certified carousel operator at [facility] [id number] 20:52:00* Test Item Value Reference Range Interpretation Comments GLUBED (test code = GLUBED) 234 mg/dL 74-106 H Performed by certified carousel operator at [facility] [id number] 17:06:00* Test Item Value Reference Range Interpretation Comments GLUBED (test code = GLUBED) 222 mg/dL 74-106 H Performed by certified carousel operator at [facility] [id number] 17:06:00* Test Item Value Reference Range Interpretation Comments GLUBED (test code = GLUBED) 142 mg/dL 74-106 H Performed by certified carousel operator at [facility] ARTERIAL BLOOD [id number] 16:33:00* Test Item Value Reference Range Interpretation Comments ARTERIAL BLOOD GAS PH (test code = PHA) 7.29 7.35-7.45 L ARTERIAL BLOOD GAS PCO2 (test code = PCO2A) 65.7 mm Hg 35-45 HH Results called to and read back by Jose R 16:15 - 08/20/2019; by Remedios ARTERIAL BLOOD GAS PO2 (test code = PO2A) 54.2 mmHg 80-100 L BICARBONATE TOTAL HCO3 (test code = HCO3) 31.2 mmol/L 23.0-27.0 H BASE EXCESS (test code = TONIA) 3.6 mmol/L -3.0-5.0 N ABG O2 SATURATION (test code = SATA) 84.5 % 90.0-98.0 L ABG TYPE (test code = TYPEA) Arterial FIO2 (test code = FIO2A) 40.0 ABG L/M (test code = L/M) 5.00 L/MIN ABG SITE (test code = SITEA) Rt RADIAL ARTERY MODIFIED ALLENS (test code = MODALL) Yes CHECK PERFORMED HEMATOCRIT (test code = HCT/ABG) 27 % 35-47 L TOTAL HGB (test code = THB) 9.1 gram/dL 11.5-15.5 L HGB O2 SAT (test code = HBOSAT) 84.2 % 94.00-98.00 L CARBOXYHEMOGLOBIN (test code = HOHGBT) 0.3 %totalHg 0.5-1.5 LL Results called to and read back by Jose R 16:15 - 08/20/2019; by Remedios METHEMOGLOBIN (test code = METHGB) 0.1 % 0.0-1.50 N O2 CONTENT (test code = O2CT) 10.8 % vol 18.0-22.0 L VITAMIN [id number] 15:08:00* Test Item Value Reference Range Interpretation Comments VITAMIN B12 (test code = VITB12) 497 pg/mL 193-986 N -METHM-HOMOCYFOLIC [id number] 15:08:00* Test Item Value Reference Range Interpretation Comments FOLIC ACID (test code = FOL) 12.8 ng/mL 3.10-17.50 N -METHM-HOMOCYMETHYLMALONIC [id number] 15:08:00* Test Item Value Reference Range Interpretation Comments METHYLMALONIC ACID (test code = METHM) 214 nmol/L 0-378 [id number] 15:08:00* Test Item Value Reference Range Interpretation Comments HOMOCYSTEINE (test code = HOMOCY) 8.9 umol/L 0.0-15.0 Performed At: [facility] [id number] [place], [place] [id number] Kyle L MD Ph:[phone] -METHM-HOMOCYBASIC METABOLIC [id number] 09:34:00* Test Item Value Reference Range Interpretation Comments SODIUM (test code = NA) 144 mmol/L 136-145 N POTASSIUM (test code = K) 4.1 mmol/L 3.5-5.1 N CHLORIDE (test code = CL) 107.0 mmol/L 98-107 N CARBON DIOXIDE (test code = CO2) 31.0 mmol/L 21-32 N ANION GAP (test code = GAP) 10.1 10-20 N GLUCOSE (test code = GLU) 142 mg/dL 74-106 H BLOOD UREA NITROGEN (test code = BUN) 38 mg/dL 7-18 H GLOMERULAR FILTRATION RATE (test code = GFR) 57 mL/min >=60 Estimated GFR by using Modified MDRD formula.Chronic kidney disease is defined as either kidney damageor GFR <60 mL/min/1.73 m2 for >3 months. CREATININE (test code = CREAT) 1.00 mg/dL 0.55-1.02 N Note change in reference range due to change in reagent. BUN/CREATININE RATIO (test code = BUN/CREA) 38.0 10-20 H CALCIUM (test code = CA) 9.1 mg/dL 8.5-10.1 N CBC W/AUTO [id number] 09:12:00* Test Item Value Reference Range Interpretation Comments WHITE BLOOD CELL (test code = WBC) 16.2 K/mm3 4.5-12.5 H RED BLOOD CELL (test code = RBC) 2.96 mill/mm3 3.7-5.2 L HEMOGLOBIN (test code = HGB) 8.1 gram/dL 11.5-15.5 L HEMATOCRIT (test code = HCT) 27.7 % 36.0-46.0 L MEAN CELL VOLUME (test code = MCV) 93.6 fL 80-98 N MEAN CELL HGB (test code = MCH) 27.4 picogram 27.0-33.0 N MEAN CELL HGB CONCETRATION (test code = MCHC) 29.2 gram/dL 33.0-36. 0 L RED CELL DISTRIBUTION WIDTH (test code = RDW) 15.1 % 11.6-16. 2 N RED CELL DISTRIBUTION WIDTH SD (test code = RDW-SD) 51.4 fL 37 .0-51.0 H PLATELET COUNT (test code = PLT) 352 K/mm3 150-450 RESULT VERIFIED BY REPEAT ANALYSIS MEAN PLATELET VOLUME (test code = MPV) 12.6 fL 6.7-11.0 H NEUTROPHIL % (test code = NT%) 73.8 % 39.0-69.0 H IMMATURE GRANULOCYTE % (test code = IG%) 0.6 % 0.0-5.0 N LYMPHOCYTE % (test code = LY%) 13.7 % 25.0-55.0 L MONOCYTE % (test code = MO%) 11.6 % 0.0-10.0 H EOSINOPHIL % (test code = EO%) 0.1 % 0.0-5.0 N BASOPHIL % (test code = BA%) 0.2 % 0.0-1.0 N NUCLEATED RBC % (test code = NRBC%) 0.1 % 0-0 H NEUTROPHIL # (test code = NT#) 11.92 K/mm3 1.8-7.7 H IMMATURE GRANULOCYTE # (test code = IG#) 0.09 x10 3/uL 0-0.03 H LYMPHOCYTE # (test code = LY#) 2.21 K/mm3 1.0-5.0 N MONOCYTE # (test code = MO#) 1.88 K/mm3 0-0.8 H EOSINOPHIL # (test code = EO#) 0.01 K/mm3 0.0-0.5 N BASOPHIL # (test code = BA#) 0.04 K/mm3 0.0-0.2 N NUCLEATED RBC # (test code = NRBC#) 0.02 K/mm3 0.0-0.1 N MANUAL DIFF REQUIRED (test code = MDIFF) NO [id number] 06:02:00* Test Item Value Reference Range Interpretation Comments GLUBED (test code = GLUBED) 149 mg/dL 74-106 H Performed by certified carousel operator at [facility] [id number] 20:58:00* Test Item Value Reference Range Interpretation Comments GLUBED (test code = GLUBED) 208 mg/dL 74-106 H Performed by certified carousel operator at [facility] [id number] 17:47:00* Test Item Value Reference Range Interpretation Comments GLUBED (test code = GLUBED) 225 mg/dL 74-106 H Performed by certified carousel operator at [facility] [id number] 17:47:00* Test Item Value Reference Range Interpretation Comments GLUBED (test code = GLUBED) 204 mg/dL 74-106 H Performed by certified carousel operator at [facility] [id number] 07:00:00* Test Item Value Reference Range Interpretation Comments GLUBED (test code = GLUBED) 251 mg/dL 74-106 H [facility] CBC W/MANUAL [id number] 06:53:00* Test Item Value Reference Range Interpretation Comments WHITE BLOOD CELL (test code = WBC) 21.2 K/mm3 4.5-12.5 H RED BLOOD CELL (test code = RBC) 2.57 mill/mm3 3.7-5.2 L HEMOGLOBIN (test code = HGB) 7.0 gram/dL 11.5-15.5 L HEMATOCRIT (test code = HCT) 23.4 % 36.0-46.0 L MEAN CELL VOLUME (test code = MCV) 91.1 fL 80-98 N MEAN CELL HGB (test code = MCH) 27.2 picogram 27.0-33.0 N MEAN CELL HGB CONCETRATION (test code = MCHC) 29.9 gram/dL 33.0-36. 0 L RED CELL DISTRIBUTION WIDTH (test code = RDW) 15.3 % 11.6-16. 2 N RED CELL DISTRIBUTION WIDTH SD (test code = RDW-SD) 51.5 fL 37 .0-51.0 H PLATELET COUNT (test code = PLT) 302 K/mm3 150-450 N MEAN PLATELET VOLUME (test code = MPV) 12.8 fL 6.7-11.0 H IMMATURE GRANULOCYTE % (test code = IG%) 0.6 % 0.0-5.0 N NUCLEATED RBC % (test code = NRBC%) 0.0 % 0-0 N NEUTROPHIL # (test code = NT#) 20.07 K/mm3 1.8-7.7 H IMMATURE GRANULOCYTE # (test code = IG#) 0.12 x10 3/uL 0-0.03 H LYMPHOCYTE # (test code = LY#) 0.56 K/mm3 1.0-5.0 L MONOCYTE # (test code = MO#) 0.45 K/mm3 0-0.8 N EOSINOPHIL # (test code = EO#) 0.00 K/mm3 0.0-0.5 N BASOPHIL # (test code = BA#) 0.03 K/mm3 0.0-0.2 N NUCLEATED RBC # (test code = NRBC#) 0.00 K/mm3 0.0-0.1 N MANUAL DIFF REQUIRED (test code = MDIFF) YES STAIN ACCEPTABILITY (test code = STN ACCEPTABLE) STAIN ACCEPTABLE TOTAL CELLS COUNTED (test code = TCC) 115 #CELLS SEGMENTED NEUTROPHILS (test code = SEG) 94.8 % 39-69 H BAND NEUTROPHIL (test code = BAND) 0 % 0-10 N LYMPHOCYTE (test code = LYMPH) 3.5 % 25-55 L REACTIVE LYMPH (test code = RELYMPH) 0 % MONOCYTE (test code = MON) 1.7 % 0-10 N EOSINOPHIL (test code = EOS) 0 % 0.0-5.0 N BASOPHIL (test code = BASO) 0 % 0-1.0 N METAMYELOCYTE (test code = META) 0 % 0-0 N MYELOCYTE (test code = MYELO) 0 % 0.0-0.0 N PROMYELOCYTE (test code = PROM) 0 % 0-0 N HYPOCHROMIA (test code = HYPO) 1+ ANISOCYTOSIS (test code = ANISO) 1+ MACROCYTOSIS (test code = MACR) 1+ PLATELET ESTIMATE (test code = PLTEST) ADEQUATE PLATELET MORPHOLOGY (test code = PLTMORPH) NORMAL IMMATURE FORMS (test code = IMMAT) 0 % 0-0 N BASIC METABOLIC [id number] 06:16:00* Test Item Value Reference Range Interpretation Comments SODIUM (test code = NA) 138 mmol/L 136-145 N POTASSIUM (test code = K) 4.7 mmol/L 3.5-5.1 N CHLORIDE (test code = CL) 104.0 mmol/L 98-107 N CARBON DIOXIDE (test code = CO2) 27.0 mmol/L 21-32 N ANION GAP (test code = GAP) 11.7 10-20 N GLUCOSE (test code = GLU) 289 mg/dL 74-106 H BLOOD UREA NITROGEN (test code = BUN) 37 mg/dL 7-18 H GLOMERULAR FILTRATION RATE (test code = GFR) 42 mL/min >=60 Estimated GFR by using Modified MDRD formula.Chronic kidney disease is defined as either kidney damageor GFR <60 mL/min/1.73 m2 for >3 months. CREATININE (test code = CREAT) 1.30 mg/dL 0.55-1.02 H Note change in reference range due to change in reagent. BUN/CREATININE RATIO (test code = BUN/CREA) 28.5 10-20 H CALCIUM (test code = CA) 8.6 mg/dL 8.5-10.1 N BASIC METABOLIC [id number] 06:11:00* Test Item Value Reference Range Interpretation Comments SODIUM (test code = NA) 138 mmol/L 136-145 N POTASSIUM (test code = K) 4.7 mmol/L 3.5-5.1 N CHLORIDE (test code = CL) 104.0 mmol/L 98-107 N CARBON DIOXIDE (test code = CO2) mmol/L 21-32 ANION GAP (test code = GAP) 10-20 GLUCOSE (test code = GLU) mg/dL 74-106 BLOOD UREA NITROGEN (test code = BUN) mg/dL 7-18 GLOMERULAR FILTRATION RATE (test code = GFR) mL/min >=60 CREATININE (test code = CREAT) mg/dL 0.55-1.02 BUN/CREATININE RATIO (test code = BUN/CREA) 10-20 CALCIUM (test code = CA) mg/dL 8.5-10.1 CBC W/MANUAL [id number] 05:36:00* Test Item Value Reference Range Interpretation Comments WHITE BLOOD CELL (test code = WBC) 21.2 K/mm3 4.5-12.5 H RED BLOOD CELL (test code = RBC) 2.57 mill/mm3 3.7-5.2 L HEMOGLOBIN (test code = HGB) 7.0 gram/dL 11.5-15.5 L HEMATOCRIT (test code = HCT) 23.4 % 36.0-46.0 L MEAN CELL VOLUME (test code = MCV) 91.1 fL 80-98 N MEAN CELL HGB (test code = MCH) 27.2 picogram 27.0-33.0 N MEAN CELL HGB CONCETRATION (test code = MCHC) 29.9 gram/dL 33.0-36. 0 L RED CELL DISTRIBUTION WIDTH (test code = RDW) 15.3 % 11.6-16. 2 N RED CELL DISTRIBUTION WIDTH SD (test code = RDW-SD) 51.5 fL 37 .0-51.0 H PLATELET COUNT (test code = PLT) 302 K/mm3 150-450 N MEAN PLATELET VOLUME (test code = MPV) 12.8 fL 6.7-11.0 H IMMATURE GRANULOCYTE % (test code = IG%) 0.6 % 0.0-5.0 N NUCLEATED RBC % (test code = NRBC%) 0.0 % 0-0 N NEUTROPHIL # (test code = NT#) 20.07 K/mm3 1.8-7.7 H IMMATURE GRANULOCYTE # (test code = IG#) 0.12 x10 3/uL 0-0.03 H LYMPHOCYTE # (test code = LY#) 0.56 K/mm3 1.0-5.0 L MONOCYTE # (test code = MO#) 0.45 K/mm3 0-0.8 N EOSINOPHIL # (test code = EO#) 0.00 K/mm3 0.0-0.5 N BASOPHIL # (test code = BA#) 0.03 K/mm3 0.0-0.2 N NUCLEATED RBC # (test code = NRBC#) 0.00 K/mm3 0.0-0.1 N MANUAL DIFF REQUIRED (test code = MDIFF) YES STAIN ACCEPTABILITY (test code = STN ACCEPTABLE) TOTAL CELLS COUNTED (test code = TCC) #CELLS SEGMENTED NEUTROPHILS (test code = SEG) % 39-69 LYMPHOCYTE (test code = LYMPH) % 25-55 MONOCYTE (test code = MON) % 0-10 EOSINOPHIL (test code = EOS) % 0.0-5.0 CABOT RINGS (test code = CAB) MORPHOLOGY COMMENT (test code = MOC) PLATELET ESTIMATE (test code = PLTEST) PLATELET MORPHOLOGY (test code = PLTMORPH) CBC W/MANUAL [id number] 05:36:00* Test Item Value Reference Range Interpretation Comments WHITE BLOOD CELL (test code = WBC) 21.2 K/mm3 4.5-12.5 H RED BLOOD CELL (test code = RBC) 2.57 mill/mm3 3.7-5.2 L HEMOGLOBIN (test code = HGB) 7.0 gram/dL 11.5-15.5 L HEMATOCRIT (test code = HCT) 23.4 % 36.0-46.0 L MEAN CELL VOLUME (test code = MCV) 91.1 fL 80-98 N MEAN CELL HGB (test code = MCH) 27.2 picogram 27.0-33.0 N MEAN CELL HGB CONCETRATION (test code = MCHC) 29.9 gram/dL 33.0-36. 0 L RED CELL DISTRIBUTION WIDTH (test code = RDW) 15.3 % 11.6-16. 2 N RED CELL DISTRIBUTION WIDTH SD (test code = RDW-SD) 51.5 fL 37 .0-51.0 H PLATELET COUNT (test code = PLT) 302 K/mm3 150-450 N MEAN PLATELET VOLUME (test code = MPV) 12.8 fL 6.7-11.0 H IMMATURE GRANULOCYTE % (test code = IG%) 0.6 % 0.0-5.0 N NUCLEATED RBC % (test code = NRBC%) 0.0 % 0-0 N NEUTROPHIL # (test code = NT#) 20.07 K/mm3 1.8-7.7 H IMMATURE GRANULOCYTE # (test code = IG#) 0.12 x10 3/uL 0-0.03 H LYMPHOCYTE # (test code = LY#) 0.56 K/mm3 1.0-5.0 L MONOCYTE # (test code = MO#) 0.45 K/mm3 0-0.8 N EOSINOPHIL # (test code = EO#) 0.00 K/mm3 0.0-0.5 N BASOPHIL # (test code = BA#) 0.03 K/mm3 0.0-0.2 N NUCLEATED RBC # (test code = NRBC#) 0.00 K/mm3 0.0-0.1 N MANUAL DIFF REQUIRED (test code = MDIFF) YES STAIN ACCEPTABILITY (test code = STN ACCEPTABLE) TOTAL CELLS COUNTED (test code = TCC) #CELLS SEGMENTED NEUTROPHILS (test code = SEG) % 39-69 LYMPHOCYTE (test code = LYMPH) % 25-55 MONOCYTE (test code = MON) % 0-10 EOSINOPHIL (test code = EOS) % 0.0-5.0 MORPHOLOGY COMMENT (test code = MOC) PLATELET ESTIMATE (test code = PLTEST) PLATELET MORPHOLOGY (test code = PLTMORPH) CBC W/MANUAL [id number] 05:36:00* Test Item Value Reference Range Interpretation Comments WHITE BLOOD CELL (test code = WBC) 21.2 K/mm3 4.5-12.5 H RED BLOOD CELL (test code = RBC) 2.57 mill/mm3 3.7-5.2 L HEMOGLOBIN (test code = HGB) 7.0 gram/dL 11.5-15.5 L HEMATOCRIT (test code = HCT) 23.4 % 36.0-46.0 L MEAN CELL VOLUME (test code = MCV) 91.1 fL 80-98 N MEAN CELL HGB (test code = MCH) 27.2 picogram 27.0-33.0 N MEAN CELL HGB CONCETRATION (test code = MCHC) 29.9 gram/dL 33.0-36. 0 L RED CELL DISTRIBUTION WIDTH (test code = RDW) 15.3 % 11.6-16. 2 N RED CELL DISTRIBUTION WIDTH SD (test code = RDW-SD) 51.5 fL 37 .0-51.0 H PLATELET COUNT (test code = PLT) 302 K/mm3 150-450 N MEAN PLATELET VOLUME (test code = MPV) 12.8 fL 6.7-11.0 H IMMATURE GRANULOCYTE % (test code = IG%) 0.6 % 0.0-5.0 N NUCLEATED RBC % (test code = NRBC%) 0.0 % 0-0 N NEUTROPHIL # (test code = NT#) 20.07 K/mm3 1.8-7.7 H IMMATURE GRANULOCYTE # (test code = IG#) 0.12 x10 3/uL 0-0.03 H LYMPHOCYTE # (test code = LY#) 0.56 K/mm3 1.0-5.0 L MONOCYTE # (test code = MO#) 0.45 K/mm3 0-0.8 N EOSINOPHIL # (test code = EO#) 0.00 K/mm3 0.0-0.5 N BASOPHIL # (test code = BA#) 0.03 K/mm3 0.0-0.2 N NUCLEATED RBC # (test code = NRBC#) 0.00 K/mm3 0.0-0.1 N MANUAL DIFF REQUIRED (test code = MDIFF) YES STAIN ACCEPTABILITY (test code = STN ACCEPTABLE) TOTAL CELLS COUNTED (test code = TCC) #CELLS SEGMENTED NEUTROPHILS (test code = SEG) % 39-69 LYMPHOCYTE (test code = LYMPH) % 25-55 MONOCYTE (test code = MON) % 0-10 MORPHOLOGY COMMENT (test code = MOC) PLATELET ESTIMATE (test code = PLTEST) PLATELET MORPHOLOGY (test code = PLTMORPH) CBC W/MANUAL [id number] 05:35:00* Test Item Value Reference Range Interpretation Comments WHITE BLOOD CELL (test code = WBC) 21.2 K/mm3 4.5-12.5 H RED BLOOD CELL (test code = RBC) 2.57 mill/mm3 3.7-5.2 L HEMOGLOBIN (test code = HGB) 7.0 gram/dL 11.5-15.5 L HEMATOCRIT (test code = HCT) 23.4 % 36.0-46.0 L MEAN CELL VOLUME (test code = MCV) 91.1 fL 80-98 N MEAN CELL HGB (test code = MCH) 27.2 picogram 27.0-33.0 N MEAN CELL HGB CONCETRATION (test code = MCHC) 29.9 gram/dL 33.0-36. 0 L RED CELL DISTRIBUTION WIDTH (test code = RDW) 15.3 % 11.6-16. 2 N RED CELL DISTRIBUTION WIDTH SD (test code = RDW-SD) 51.5 fL 37 .0-51.0 H PLATELET COUNT (test code = PLT) 302 K/mm3 150-450 N MEAN PLATELET VOLUME (test code = MPV) 12.8 fL 6.7-11.0 H IMMATURE GRANULOCYTE % (test code = IG%) 0.6 % 0.0-5.0 N NUCLEATED RBC % (test code = NRBC%) 0.0 % 0-0 N NEUTROPHIL # (test code = NT#) 20.07 K/mm3 1.8-7.7 H IMMATURE GRANULOCYTE # (test code = IG#) 0.12 x10 3/uL 0-0.03 H LYMPHOCYTE # (test code = LY#) 0.56 K/mm3 1.0-5.0 L MONOCYTE # (test code = MO#) 0.45 K/mm3 0-0.8 N EOSINOPHIL # (test code = EO#) 0.00 K/mm3 0.0-0.5 N BASOPHIL # (test code = BA#) 0.03 K/mm3 0.0-0.2 N NUCLEATED RBC # (test code = NRBC#) 0.00 K/mm3 0.0-0.1 N MANUAL DIFF REQUIRED (test code = MDIFF) YES STAIN ACCEPTABILITY (test code = STN ACCEPTABLE) TOTAL CELLS COUNTED (test code = TCC) #CELLS SEGMENTED NEUTROPHILS (test code = SEG) % 39-69 LYMPHOCYTE (test code = LYMPH) % 25-55 MONOCYTE (test code = MON) % 0-10 EOSINOPHIL (test code = EOS) % 0.0-5.0 CABOT RINGS (test code = CAB) MORPHOLOGY COMMENT (test code = MOC) PLATELET ESTIMATE (test code = PLTEST) PLATELET MORPHOLOGY (test code = PLTMORPH) CBC W/MANUAL [id number] 05:35:00* Test Item Value Reference Range Interpretation Comments WHITE BLOOD CELL (test code = WBC) 21.2 K/mm3 4.5-12.5 H RED BLOOD CELL (test code = RBC) 2.57 mill/mm3 3.7-5.2 L HEMOGLOBIN (test code = HGB) 7.0 gram/dL 11.5-15.5 L HEMATOCRIT (test code = HCT) 23.4 % 36.0-46.0 L MEAN CELL VOLUME (test code = MCV) 91.1 fL 80-98 N MEAN CELL HGB (test code = MCH) 27.2 picogram 27.0-33.0 N MEAN CELL HGB CONCETRATION (test code = MCHC) 29.9 gram/dL 33.0-36. 0 L RED CELL DISTRIBUTION WIDTH (test code = RDW) 15.3 % 11.6-16. 2 N RED CELL DISTRIBUTION WIDTH SD (test code = RDW-SD) 51.5 fL 37 .0-51.0 H PLATELET COUNT (test code = PLT) 302 K/mm3 150-450 N MEAN PLATELET VOLUME (test code = MPV) 12.8 fL 6.7-11.0 H IMMATURE GRANULOCYTE % (test code = IG%) 0.6 % 0.0-5.0 N NUCLEATED RBC % (test code = NRBC%) 0.0 % 0-0 N NEUTROPHIL # (test code = NT#) 20.07 K/mm3 1.8-7.7 H IMMATURE GRANULOCYTE # (test code = IG#) 0.12 x10 3/uL 0-0.03 H LYMPHOCYTE # (test code = LY#) 0.56 K/mm3 1.0-5.0 L MONOCYTE # (test code = MO#) 0.45 K/mm3 0-0.8 N EOSINOPHIL # (test code = EO#) 0.00 K/mm3 0.0-0.5 N BASOPHIL # (test code = BA#) 0.03 K/mm3 0.0-0.2 N NUCLEATED RBC # (test code = NRBC#) 0.00 K/mm3 0.0-0.1 N MANUAL DIFF REQUIRED (test code = MDIFF) YES STAIN ACCEPTABILITY (test code = STN ACCEPTABLE) TOTAL CELLS COUNTED (test code = TCC) #CELLS SEGMENTED NEUTROPHILS (test code = SEG) % 39-69 LYMPHOCYTE (test code = LYMPH) % 25-55 MONOCYTE (test code = MON) % 0-10 EOSINOPHIL (test code = EOS) % 0.0-5.0 CABOT RINGS (test code = CAB) MORPHOLOGY COMMENT (test code = MOC) PLATELET ESTIMATE (test code = PLTEST) PLATELET MORPHOLOGY (test code = PLTMORPH) [id number] 22:56:00* Test Item Value Reference Range Interpretation Comments GLUBED (test code = GLUBED) 251 mg/dL 74-106 H [facility] [id number] 17:11:00* Test Item Value Reference Range Interpretation Comments GLUBED (test code = GLUBED) 285 mg/dL 74-106 H Performed by certified carousel operator at [facility] [id number] 14:32:00* Test Item Value Reference Range Interpretation Comments GLUBED (test code = GLUBED) 289 mg/dL 74-106 H Performed by certified carousel operator at [facility] VITAMIN [id number] 07:10:00* Test Item Value Reference Range Interpretation Comments VITAMIN B12 (test code = VITB12) 497 pg/mL 193-986 N -METHM-HOMOCYFOLIC [id number] 07:10:00* Test Item Value Reference Range Interpretation Comments FOLIC ACID (test code = FOL) 12.8 ng/mL 3.10-17.50 N -METHM-HOMOCYMETHYLMALONIC [id number] 07:10:00* Test Item Value Reference Range Interpretation Comments METHYLMALONIC ACID (test code = METHM) nmol/L -[id number] 07:10:00* Test Item Value Reference Range Interpretation Comments HOMOCYSTEINE (test code = HOMOCY) 8.9 umol/L 0.0-15.0 Performed At: [facility] [id number] [place], [place] [id number] Sascha Cordova MD Ph:[phone] -[id number] 06:26:00* Test Item Value Reference Range Interpretation Comments GLUBED (test code = GLUBED) 279 mg/dL 74-106 H Performed by certified carousel operator at [facility] CBC W/MANUAL [id number] 05:12:00* Test Item Value Reference Range Interpretation Comments WHITE BLOOD CELL (test code = WBC) 27.0 K/mm3 4.5-12.5 H RED BLOOD CELL (test code = RBC) 2.56 mill/mm3 3.7-5.2 L HEMOGLOBIN (test code = HGB) 7.1 gram/dL 11.5-15.5 L HEMATOCRIT (test code = HCT) 23.1 % 36.0-46.0 L MEAN CELL VOLUME (test code = MCV) 90.2 fL 80-98 N MEAN CELL HGB (test code = MCH) 27.7 picogram 27.0-33.0 N MEAN CELL HGB CONCETRATION (test code = MCHC) 30.7 gram/dL 33.0-36. 0 L RED CELL DISTRIBUTION WIDTH (test code = RDW) 14.8 % 11.6-16. 2 N RED CELL DISTRIBUTION WIDTH SD (test code = RDW-SD) 48.7 fL 37 .0-51.0 N PLATELET COUNT (test code = PLT) 275 K/mm3 150-450 N MEAN PLATELET VOLUME (test code = MPV) 12.8 fL 6.7-11.0 H NEUTROPHIL % (test code = NT%) 96.8 % 39.0-69.0 H IMMATURE GRANULOCYTE % (test code = IG%) 0.6 % 0.0-5.0 N LYMPHOCYTE % (test code = LY%) 2.2 % 25.0-55.0 L MONOCYTE % (test code = MO%) 0.3 % 0.0-10.0 N EOSINOPHIL % (test code = EO%) 0.0 % 0.0-5.0 N BASOPHIL % (test code = BA%) 0.1 % 0.0-1.0 N NUCLEATED RBC % (test code = NRBC%) 0.0 % 0-0 N NEUTROPHIL # (test code = NT#) 26.12 K/mm3 1.8-7.7 H IMMATURE GRANULOCYTE # (test code = IG#) 0.15 x10 3/uL 0-0.03 H LYMPHOCYTE # (test code = LY#) 0.59 K/mm3 1.0-5.0 L MONOCYTE # (test code = MO#) 0.09 K/mm3 0-0.8 N EOSINOPHIL # (test code = EO#) 0.00 K/mm3 0.0-0.5 N BASOPHIL # (test code = BA#) 0.03 K/mm3 0.0-0.2 N NUCLEATED RBC # (test code = NRBC#) 0.00 K/mm3 0.0-0.1 N MANUAL DIFF REQUIRED (test code = MDIFF) DIFF NEEDED STAIN ACCEPTABILITY (test code = STN ACCEPTABLE) STAIN ACCEPTABLE TOTAL CELLS COUNTED (test code = TCC) 114 #CELLS SEGMENTED NEUTROPHILS (test code = SEG) 98.2 % 39-69 H BAND NEUTROPHIL (test code = BAND) 0 % 0-10 N LYMPHOCYTE (test code = LYMPH) 1.8 % 25-55 L REACTIVE LYMPH (test code = RELYMPH) 0 % MONOCYTE (test code = MON) 0 % 0-10 N EOSINOPHIL (test code = EOS) 0 % 0.0-5.0 N BASOPHIL (test code = BASO) 0 % 0-1.0 N METAMYELOCYTE (test code = META) 0 % 0-0 N MYELOCYTE (test code = MYELO) 0 % 0.0-0.0 N PROMYELOCYTE (test code = PROM) 0 % 0-0 N HYPOCHROMIA (test code = HYPO) 1+ POIKILOCYTOSIS (test code = POIK) 2+ ANISOCYTOSIS (test code = ANISO) 1+ MACROCYTOSIS (test code = MACR) 1+ AYAD CELLS (test code = AYAD) 1+ NONE OVALOCYTES (test code = OVAL) 1+ PLATELET ESTIMATE (test code = PLTEST) ADEQUATE PLATELET MORPHOLOGY (test code = PLTMORPH) NORMAL IMMATURE FORMS (test code = IMMAT) 0 % 0-0 N BASIC METABOLIC [id number] 05:08:00* Test Item Value Reference Range Interpretation Comments SODIUM (test code = NA) 142 mmol/L 136-145 N POTASSIUM (test code = K) 4.9 mmol/L 3.5-5.1 N CHLORIDE (test code = CL) 107.0 mmol/L 98-107 N CARBON DIOXIDE (test code = CO2) 25.0 mmol/L 21-32 N ANION GAP (test code = GAP) 14.9 10-20 N GLUCOSE (test code = GLU) 287 mg/dL 74-106 H BLOOD UREA NITROGEN (test code = BUN) 23 mg/dL 7-18 H RESULT VERIFIED BY REPEAT ANALYSIS GLOMERULAR FILTRATION RATE (test code = GFR) > 60 mL/min >=60 Estimated GFR by using Modified MDRD formula.Chronic kidney disease is defined as either kidney damageor GFR <60 mL/min/1.73 m2 for >3 months. CREATININE (test code = CREAT) 0.90 mg/dL 0.55-1.02 N Note change in reference range due to change in reagent. BUN/CREATININE RATIO (test code = BUN/CREA) 25.6 10-20 H CALCIUM (test code = CA) 8.5 mg/dL 8.5-10.1 N BASIC METABOLIC [id number] 04:55:00* Test Item Value Reference Range Interpretation Comments SODIUM (test code = NA) 142 mmol/L 136-145 N POTASSIUM (test code = K) 4.9 mmol/L 3.5-5.1 N CHLORIDE (test code = CL) 107.0 mmol/L 98-107 N CARBON DIOXIDE (test code = CO2) mmol/L 21-32 ANION GAP (test code = GAP) 10-20 GLUCOSE (test code = GLU) mg/dL 74-106 BLOOD UREA NITROGEN (test code = BUN) mg/dL 7-18 GLOMERULAR FILTRATION RATE (test code = GFR) mL/min >=60 CREATININE (test code = CREAT) mg/dL 0.55-1.02 BUN/CREATININE RATIO (test code = BUN/CREA) 10-20 CALCIUM (test code = CA) mg/dL 8.5-10.1 CBC W/MANUAL [id number] 04:36:00* Test Item Value Reference Range Interpretation Comments WHITE BLOOD CELL (test code = WBC) 27.0 K/mm3 4.5-12.5 H RED BLOOD CELL (test code = RBC) 2.56 mill/mm3 3.7-5.2 L HEMOGLOBIN (test code = HGB) 7.1 gram/dL 11.5-15.5 L HEMATOCRIT (test code = HCT) 23.1 % 36.0-46.0 L MEAN CELL VOLUME (test code = MCV) 90.2 fL 80-98 N MEAN CELL HGB (test code = MCH) 27.7 picogram 27.0-33.0 N MEAN CELL HGB CONCETRATION (test code = MCHC) 30.7 gram/dL 33.0-36. 0 L RED CELL DISTRIBUTION WIDTH (test code = RDW) 14.8 % 11.6-16. 2 N RED CELL DISTRIBUTION WIDTH SD (test code = RDW-SD) 48.7 fL 37 .0-51.0 N PLATELET COUNT (test code = PLT) 275 K/mm3 150-450 N MEAN PLATELET VOLUME (test code = MPV) 12.8 fL 6.7-11.0 H NEUTROPHIL % (test code = NT%) 96.8 % 39.0-69.0 H IMMATURE GRANULOCYTE % (test code = IG%) 0.6 % 0.0-5.0 N LYMPHOCYTE % (test code = LY%) 2.2 % 25.0-55.0 L MONOCYTE % (test code = MO%) 0.3 % 0.0-10.0 N EOSINOPHIL % (test code = EO%) 0.0 % 0.0-5.0 N BASOPHIL % (test code = BA%) 0.1 % 0.0-1.0 N NUCLEATED RBC % (test code = NRBC%) 0.0 % 0-0 N NEUTROPHIL # (test code = NT#) 26.12 K/mm3 1.8-7.7 H IMMATURE GRANULOCYTE # (test code = IG#) 0.15 x10 3/uL 0-0.03 H LYMPHOCYTE # (test code = LY#) 0.59 K/mm3 1.0-5.0 L MONOCYTE # (test code = MO#) 0.09 K/mm3 0-0.8 N EOSINOPHIL # (test code = EO#) 0.00 K/mm3 0.0-0.5 N BASOPHIL # (test code = BA#) 0.03 K/mm3 0.0-0.2 N NUCLEATED RBC # (test code = NRBC#) 0.00 K/mm3 0.0-0.1 N MANUAL DIFF REQUIRED (test code = MDIFF) DIFF NEEDED STAIN ACCEPTABILITY (test code = STN ACCEPTABLE) TOTAL CELLS COUNTED (test code = TCC) #CELLS SEGMENTED NEUTROPHILS (test code = SEG) % 39-69 LYMPHOCYTE (test code = LYMPH) % 25-55 MONOCYTE (test code = MON) % 0-10 EOSINOPHIL (test code = EOS) % 0.0-5.0 CABOT RINGS (test code = CAB) MORPHOLOGY COMMENT (test code = MOC) PLATELET ESTIMATE (test code = PLTEST) PLATELET MORPHOLOGY (test code = PLTMORPH) CBC W/MANUAL [id number] 04:36:00* Test Item Value Reference Range Interpretation Comments WHITE BLOOD CELL (test code = WBC) 27.0 K/mm3 4.5-12.5 H RED BLOOD CELL (test code = RBC) 2.56 mill/mm3 3.7-5.2 L HEMOGLOBIN (test code = HGB) 7.1 gram/dL 11.5-15.5 L HEMATOCRIT (test code = HCT) 23.1 % 36.0-46.0 L MEAN CELL VOLUME (test code = MCV) 90.2 fL 80-98 N MEAN CELL HGB (test code = MCH) 27.7 picogram 27.0-33.0 N MEAN CELL HGB CONCETRATION (test code = MCHC) 30.7 gram/dL 33.0-36. 0 L RED CELL DISTRIBUTION WIDTH (test code = RDW) 14.8 % 11.6-16. 2 N RED CELL DISTRIBUTION WIDTH SD (test code = RDW-SD) 48.7 fL 37 .0-51.0 N PLATELET COUNT (test code = PLT) 275 K/mm3 150-450 N MEAN PLATELET VOLUME (test code = MPV) 12.8 fL 6.7-11.0 H NEUTROPHIL % (test code = NT%) 96.8 % 39.0-69.0 H IMMATURE GRANULOCYTE % (test code = IG%) 0.6 % 0.0-5.0 N LYMPHOCYTE % (test code = LY%) 2.2 % 25.0-55.0 L MONOCYTE % (test code = MO%) 0.3 % 0.0-10.0 N EOSINOPHIL % (test code = EO%) 0.0 % 0.0-5.0 N BASOPHIL % (test code = BA%) 0.1 % 0.0-1.0 N NUCLEATED RBC % (test code = NRBC%) 0.0 % 0-0 N NEUTROPHIL # (test code = NT#) 26.12 K/mm3 1.8-7.7 H IMMATURE GRANULOCYTE # (test code = IG#) 0.15 x10 3/uL 0-0.03 H LYMPHOCYTE # (test code = LY#) 0.59 K/mm3 1.0-5.0 L MONOCYTE # (test code = MO#) 0.09 K/mm3 0-0.8 N EOSINOPHIL # (test code = EO#) 0.00 K/mm3 0.0-0.5 N BASOPHIL # (test code = BA#) 0.03 K/mm3 0.0-0.2 N NUCLEATED RBC # (test code = NRBC#) 0.00 K/mm3 0.0-0.1 N MANUAL DIFF REQUIRED (test code = MDIFF) DIFF NEEDED STAIN ACCEPTABILITY (test code = STN ACCEPTABLE) TOTAL CELLS COUNTED (test code = TCC) #CELLS SEGMENTED NEUTROPHILS (test code = SEG) % 39-69 LYMPHOCYTE (test code = LYMPH) % 25-55 MONOCYTE (test code = MON) % 0-10 EOSINOPHIL (test code = EOS) % 0.0-5.0 MORPHOLOGY COMMENT (test code = MOC) PLATELET ESTIMATE (test code = PLTEST) PLATELET MORPHOLOGY (test code = PLTMORPH) CBC W/MANUAL [id number] 04:36:00* Test Item Value Reference Range Interpretation Comments WHITE BLOOD CELL (test code = WBC) 27.0 K/mm3 4.5-12.5 H RED BLOOD CELL (test code = RBC) 2.56 mill/mm3 3.7-5.2 L HEMOGLOBIN (test code = HGB) 7.1 gram/dL 11.5-15.5 L HEMATOCRIT (test code = HCT) 23.1 % 36.0-46.0 L MEAN CELL VOLUME (test code = MCV) 90.2 fL 80-98 N MEAN CELL HGB (test code = MCH) 27.7 picogram 27.0-33.0 N MEAN CELL HGB CONCETRATION (test code = MCHC) 30.7 gram/dL 33.0-36. 0 L RED CELL DISTRIBUTION WIDTH (test code = RDW) 14.8 % 11.6-16. 2 N RED CELL DISTRIBUTION WIDTH SD (test code = RDW-SD) 48.7 fL 37 .0-51.0 N PLATELET COUNT (test code = PLT) 275 K/mm3 150-450 N MEAN PLATELET VOLUME (test code = MPV) 12.8 fL 6.7-11.0 H NEUTROPHIL % (test code = NT%) 96.8 % 39.0-69.0 H IMMATURE GRANULOCYTE % (test code = IG%) 0.6 % 0.0-5.0 N LYMPHOCYTE % (test code = LY%) 2.2 % 25.0-55.0 L MONOCYTE % (test code = MO%) 0.3 % 0.0-10.0 N EOSINOPHIL % (test code = EO%) 0.0 % 0.0-5.0 N BASOPHIL % (test code = BA%) 0.1 % 0.0-1.0 N NUCLEATED RBC % (test code = NRBC%) 0.0 % 0-0 N NEUTROPHIL # (test code = NT#) 26.12 K/mm3 1.8-7.7 H IMMATURE GRANULOCYTE # (test code = IG#) 0.15 x10 3/uL 0-0.03 H LYMPHOCYTE # (test code = LY#) 0.59 K/mm3 1.0-5.0 L MONOCYTE # (test code = MO#) 0.09 K/mm3 0-0.8 N EOSINOPHIL # (test code = EO#) 0.00 K/mm3 0.0-0.5 N BASOPHIL # (test code = BA#) 0.03 K/mm3 0.0-0.2 N NUCLEATED RBC # (test code = NRBC#) 0.00 K/mm3 0.0-0.1 N MANUAL DIFF REQUIRED (test code = MDIFF) DIFF NEEDED STAIN ACCEPTABILITY (test code = STN ACCEPTABLE) TOTAL CELLS COUNTED (test code = TCC) #CELLS SEGMENTED NEUTROPHILS (test code = SEG) % 39-69 LYMPHOCYTE (test code = LYMPH) % 25-55 MONOCYTE (test code = MON) % 0-10 MORPHOLOGY COMMENT (test code = MOC) PLATELET ESTIMATE (test code = PLTEST) PLATELET MORPHOLOGY (test code = PLTMORPH) CBC W/MANUAL [id number] 04:35:00* Test Item Value Reference Range Interpretation Comments WHITE BLOOD CELL (test code = WBC) 27.0 K/mm3 4.5-12.5 H RED BLOOD CELL (test code = RBC) 2.56 mill/mm3 3.7-5.2 L HEMOGLOBIN (test code = HGB) 7.1 gram/dL 11.5-15.5 L HEMATOCRIT (test code = HCT) 23.1 % 36.0-46.0 L MEAN CELL VOLUME (test code = MCV) 90.2 fL 80-98 N MEAN CELL HGB (test code = MCH) 27.7 picogram 27.0-33.0 N MEAN CELL HGB CONCETRATION (test code = MCHC) 30.7 gram/dL 33.0-36. 0 L RED CELL DISTRIBUTION WIDTH (test code = RDW) 14.8 % 11.6-16. 2 N RED CELL DISTRIBUTION WIDTH SD (test code = RDW-SD) 48.7 fL 37 .0-51.0 N PLATELET COUNT (test code = PLT) 275 K/mm3 150-450 N MEAN PLATELET VOLUME (test code = MPV) 12.8 fL 6.7-11.0 H NEUTROPHIL % (test code = NT%) 96.8 % 39.0-69.0 H IMMATURE GRANULOCYTE % (test code = IG%) 0.6 % 0.0-5.0 N LYMPHOCYTE % (test code = LY%) 2.2 % 25.0-55.0 L MONOCYTE % (test code = MO%) 0.3 % 0.0-10.0 N EOSINOPHIL % (test code = EO%) 0.0 % 0.0-5.0 N BASOPHIL % (test code = BA%) 0.1 % 0.0-1.0 N NUCLEATED RBC % (test code = NRBC%) 0.0 % 0-0 N NEUTROPHIL # (test code = NT#) 26.12 K/mm3 1.8-7.7 H IMMATURE GRANULOCYTE # (test code = IG#) 0.15 x10 3/uL 0-0.03 H LYMPHOCYTE # (test code = LY#) 0.59 K/mm3 1.0-5.0 L MONOCYTE # (test code = MO#) 0.09 K/mm3 0-0.8 N EOSINOPHIL # (test code = EO#) 0.00 K/mm3 0.0-0.5 N BASOPHIL # (test code = BA#) 0.03 K/mm3 0.0-0.2 N NUCLEATED RBC # (test code = NRBC#) 0.00 K/mm3 0.0-0.1 N MANUAL DIFF REQUIRED (test code = MDIFF) DIFF NEEDED STAIN ACCEPTABILITY (test code = STN ACCEPTABLE) TOTAL CELLS COUNTED (test code = TCC) #CELLS SEGMENTED NEUTROPHILS (test code = SEG) % 39-69 LYMPHOCYTE (test code = LYMPH) % 25-55 MONOCYTE (test code = MON) % 0-10 EOSINOPHIL (test code = EOS) % 0.0-5.0 CABOT RINGS (test code = CAB) MORPHOLOGY COMMENT (test code = MOC) PLATELET ESTIMATE (test code = PLTEST) PLATELET MORPHOLOGY (test code = PLTMORPH) CBC W/MANUAL [id number] 04:35:00* Test Item Value Reference Range Interpretation Comments WHITE BLOOD CELL (test code = WBC) 27.0 K/mm3 4.5-12.5 H RED BLOOD CELL (test code = RBC) 2.56 mill/mm3 3.7-5.2 L HEMOGLOBIN (test code = HGB) 7.1 gram/dL 11.5-15.5 L HEMATOCRIT (test code = HCT) 23.1 % 36.0-46.0 L MEAN CELL VOLUME (test code = MCV) 90.2 fL 80-98 N MEAN CELL HGB (test code = MCH) 27.7 picogram 27.0-33.0 N MEAN CELL HGB CONCETRATION (test code = MCHC) 30.7 gram/dL 33.0-36. 0 L RED CELL DISTRIBUTION WIDTH (test code = RDW) 14.8 % 11.6-16. 2 N RED CELL DISTRIBUTION WIDTH SD (test code = RDW-SD) 48.7 fL 37 .0-51.0 N PLATELET COUNT (test code = PLT) 275 K/mm3 150-450 N MEAN PLATELET VOLUME (test code = MPV) 12.8 fL 6.7-11.0 H NEUTROPHIL % (test code = NT%) 96.8 % 39.0-69.0 H IMMATURE GRANULOCYTE % (test code = IG%) 0.6 % 0.0-5.0 N LYMPHOCYTE % (test code = LY%) 2.2 % 25.0-55.0 L MONOCYTE % (test code = MO%) 0.3 % 0.0-10.0 N EOSINOPHIL % (test code = EO%) 0.0 % 0.0-5.0 N BASOPHIL % (test code = BA%) 0.1 % 0.0-1.0 N NUCLEATED RBC % (test code = NRBC%) 0.0 % 0-0 N NEUTROPHIL # (test code = NT#) 26.12 K/mm3 1.8-7.7 H IMMATURE GRANULOCYTE # (test code = IG#) 0.15 x10 3/uL 0-0.03 H LYMPHOCYTE # (test code = LY#) 0.59 K/mm3 1.0-5.0 L MONOCYTE # (test code = MO#) 0.09 K/mm3 0-0.8 N EOSINOPHIL # (test code = EO#) 0.00 K/mm3 0.0-0.5 N BASOPHIL # (test code = BA#) 0.03 K/mm3 0.0-0.2 N NUCLEATED RBC # (test code = NRBC#) 0.00 K/mm3 0.0-0.1 N MANUAL DIFF REQUIRED (test code = MDIFF) DIFF NEEDED STAIN ACCEPTABILITY (test code = STN ACCEPTABLE) TOTAL CELLS COUNTED (test code = TCC) #CELLS SEGMENTED NEUTROPHILS (test code = SEG) % 39-69 LYMPHOCYTE (test code = LYMPH) % 25-55 MONOCYTE (test code = MON) % 0-10 EOSINOPHIL (test code = EOS) % 0.0-5.0 CABOT RINGS (test code = CAB) MORPHOLOGY COMMENT (test code = MOC) PLATELET ESTIMATE (test code = PLTEST) PLATELET MORPHOLOGY (test code = PLTMORPH) ARTERIAL BLOOD [id number] 22:24:00* Test Item Value Reference Range Interpretation Comments ARTERIAL BLOOD GAS PH (test code = PHA) 7.39 7.35-7.45 N ARTERIAL BLOOD GAS PCO2 (test code = PCO2A) 45.8 mm Hg 35-45 H ARTERIAL BLOOD GAS PO2 (test code = PO2A) 62.6 mmHg 80-100 L BICARBONATE TOTAL HCO3 (test code = HCO3) 26.9 mmol/L 23.0-27.0 N BASE EXCESS (test code = TONIA) 1.7 mmol/L -3.0-5.0 N ABG O2 SATURATION (test code = SATA) 91.8 % 90.0-98.0 N ABG TYPE (test code = TYPEA) Arterial FIO2 (test code = FIO2A) 35.0 ABG VENT RESP RATE (test code = RRA) 18.0 per min ABG PEEP (test code = PEEPA) 5.0 cmH2O ABG SITE (test code = SITEA) Rt RADIAL ARTERY MODIFIED ALLENS (test code = MODALL) Yes CHECK PERFORMED HEMATOCRIT (test code = HCT/ABG) 23 % 35-47 L TOTAL HGB (test code = THB) 7.9 gram/dL 11.5-15.5 L HGB O2 SAT (test code = HBOSAT) 91.0 % 94.00-98.00 L CARBOXYHEMOGLOBIN (test code = HOHGBT) 0.5 %totalHg 0.5-1.5 N METHEMOGLOBIN (test code = METHGB) 0.4 % 0.0-1.50 N O2 CONTENT (test code = O2CT) 10.2 % vol 18.0-22.0 L [id number] 20:59:00* Test Item Value Reference Range Interpretation Comments GLUBED (test code = GLUBED) 237 mg/dL 74-106 H Performed by certified carousel operator at [facility] ARTERIAL BLOOD [id number] 17:38:00* Test Item Value Reference Range Interpretation Comments ARTERIAL BLOOD GAS PH (test code = PHA) 7.32 7.35-7.45 L ARTERIAL BLOOD GAS PCO2 (test code = PCO2A) 54.0 mm Hg 35-45 H ARTERIAL BLOOD GAS PO2 (test code = PO2A) 88.3 mmHg 80-100 N BICARBONATE TOTAL HCO3 (test code = HCO3) 27.4 mmol/L 23.0-27.0 H BASE EXCESS (test code = TONIA) 1.0 mmol/L -3.0-5.0 N ABG O2 SATURATION (test code = SATA) 96.5 % 90.0-98.0 N ABG TYPE (test code = TYPEA) Arterial FIO2 (test code = FIO2A) 35.0 ABG VENT RESP RATE (test code = RRA) 16.0 per min ABG PEEP (test code = PEEPA) 5.0 cmH2O ABG SITE (test code = SITEA) Lt RADIAL ARTERY MODIFIED ALLENS (test code = MODALL) Yes CHECK PERFORMED HEMATOCRIT (test code = HCT/ABG) 25 % 35-47 L TOTAL HGB (test code = THB) 8.4 gram/dL 11.5-15.5 L HGB O2 SAT (test code = HBOSAT) 95.5 % 94.00-98.00 N CARBOXYHEMOGLOBIN (test code = HOHGBT) 0.6 %totalHg 0.5-1.5 N METHEMOGLOBIN (test code = METHGB) 0.4 % 0.0-1.50 N O2 CONTENT (test code = O2CT) 11.4 % vol 18.0-22.0 L VITAMIN [id number] 17:02:00* Test Item Value Reference Range Interpretation Comments VITAMIN B12 (test code = VITB12) 497 pg/mL 193-986 N -METHM-HOMOCYFOLIC [id number] 17:02:00* Test Item Value Reference Range Interpretation Comments FOLIC ACID (test code = FOL) 12.8 ng/mL 3.10-17.50 N -METHM-HOMOCYMETHYLMALONIC [id number] 17:02:00* Test Item Value Reference Range Interpretation Comments METHYLMALONIC ACID (test code = METHM) nmol/L -[id number] 17:02:00* Test Item Value Reference Range Interpretation Comments HOMOCYSTEINE (test code = HOMOCY) umol/L -[id number] 16:48:00* Test Item Value Reference Range Interpretation Comments GLUBED (test code = GLUBED) 200 mg/dL 74-106 H Performed by certified carousel operator at [facility] FE W/TOTAL IRON BINDING CAP.[id number] 16:37:00* Test Item Value Reference Range Interpretation Comments SERUM IRON (test code = IRON) 9 ug/dL 50-175 L TOTAL IRON BINDING CAPACITY (test code = TIBC) 240 mcg/dL 250-450 L IRON SATURATION (test code = FESAT) 3.75 % 13-45 L B-TYPE NATRIURETIC [id number] 15:06:00* Test Item Value Reference Range Interpretation Comments B-TYPE NATRIURETIC PEPTIDE (test code = BNP) 92.17 pgram/mL 0-100 N LACTIC [id number] 15:06:00* Test Item Value Reference Range Interpretation Comments LACTIC ACID (test code = LACT) 0.9 mmol/L 0.4-1.9 N BASIC METABOLIC [id number] 14:59:00* Test Item Value Reference Range Interpretation Comments SODIUM (test code = NA) 141 mmol/L 136-145 N POTASSIUM (test code = K) 4.4 mmol/L 3.5-5.1 N CHLORIDE (test code = CL) 106.0 mmol/L 98-107 N CARBON DIOXIDE (test code = CO2) 30.0 mmol/L 21-32 N ANION GAP (test code = GAP) 9.4 10-20 L GLUCOSE (test code = GLU) 218 mg/dL 74-106 H BLOOD UREA NITROGEN (test code = BUN) 18 mg/dL 7-18 N GLOMERULAR FILTRATION RATE (test code = GFR) > 60 mL/min >=60 Estimated GFR by using Modified MDRD formula.Chronic kidney disease is defined as either kidney damageor GFR <60 mL/min/1.73 m2 for >3 months. CREATININE (test code = CREAT) 0.80 mg/dL 0.55-1.02 N Note change in reference range due to change in reagent. BUN/CREATININE RATIO (test code = BUN/CREA) 22.5 10-20 H CALCIUM (test code = CA) 8.6 mg/dL 8.5-10.1 N [id number] 14:59:00* Test Item Value Reference Range Interpretation Comments TROPONIN-I (test code = TROPI) <0.015 ng/mL 0-0.045 N BASIC METABOLIC [id number] 14:43:00* Test Item Value Reference Range Interpretation Comments SODIUM (test code = NA) 141 mmol/L 136-145 N POTASSIUM (test code = K) 4.4 mmol/L 3.5-5.1 N CHLORIDE (test code = CL) 106.0 mmol/L 98-107 N CARBON DIOXIDE (test code = CO2) mmol/L 21-32 ANION GAP (test code = GAP) 10-20 GLUCOSE (test code = GLU) mg/dL 74-106 BLOOD UREA NITROGEN (test code = BUN) mg/dL 7-18 GLOMERULAR FILTRATION RATE (test code = GFR) mL/min >=60 CREATININE (test code = CREAT) mg/dL 0.55-1.02 BUN/CREATININE RATIO (test code = BUN/CREA) 10-20 CALCIUM (test code = CA) mg/dL 8.5-10.1 [id number] 14:43:00* Test Item Value Reference Range Interpretation Comments TROPONIN-I (test code = TROPI) ng/mL 0-0.045 - XR CHEST 1 [id number] 14:31:00 FAX: Kevin Bass MD [phone] [place]: St: PRE FAX: Sundar Alonso DO Name: DAYANA RICHARDSON [facility] : 1960 Age/S: 59/F [address] [facility] Unit #: [id number] Loc: [place] [address] Phys: Sundar Alonso DO Acct: [id number] Dis Date: Status: PRE ER PHONE #: [phone] Exam Date: 08/17/2019 1422 FAX #: [phone] Reason: Shortness of Breath EXAMS: CPT CODE: [id number] XR CHEST 1 V 07355 HISTORY: Shortness of breath. COMPARISON: July 12, 2019. Location: [facility]. Patchy right lower lobe infiltrate with small effusion and subsegmental atelectasis. Dependent changes on the left. Overlying chin obscures the left apex. Previously noted nodule in the left lower lobe is not visible. Cardiomegaly. IMPRESSION: Patchy right lower lobe infiltrate with small effu ángel and subsegmental atelectasis. at 1431 Reported and sig magui by: Telly Arguello M.D. CC: Kevin Veronica MD; Sundar Vera DO Technologist: Tavia Salas(R) [facility] Date/Time/By: 08/17/2019 (1954) : By: [email or web address] Orig Print D/T: S: 08/17/2019 (9810) PAGE 1 Signed Report CBC W/O DIFF 2019-08-17 14:26:00* Test Item Value Reference Range Interpretation Comments WHITE BLOOD CELL (test code = WBC) 38.4 K/mm3 4.5-12.5 H RED BLOOD CELL (test code = RBC) 2.74 mill/mm3 3.7-5.2 L HEMOGLOBIN (test code = HGB) 7.5 gram/dL 11.5-15.5 L HEMATOCRIT (test code = HCT) 24.7 % 36.0-46.0 L MEAN CELL VOLUME (test code = MCV) 90.1 fL 80-98 N MEAN CELL HGB (test code = MCH) 27.4 picogram 27.0-33.0 N MEAN CELL HGB CONCETRATION (test code = MCHC) 30.4 gram/dL 33.0-36. 0 L RED CELL DISTRIBUTION WIDTH (test code = RDW) 14.8 % 11.6-16. 2 N PLATELET COUNT (test code = PLT) 312 K/mm3 150-450 N MEAN PLATELET VOLUME (test code = MPV) 12.3 fL 6.7-11.0 H [id number] 13:04:00* Test Item Value Reference Range Interpretation Comments GLUBED (test code = GLUBED) 211 mg/dL 74-106 H Performed by certified carousel operator at [facility] [id number] 03:55:00* Test Item Value Reference Range Interpretation Comments GLUBED (test code = GLUBED) 74 mg/dL 74-106 N Performed by certified carousel operator at [facility] [id number] 22:01:00* Test Item Value Reference Range Interpretation Comments GLUBED (test code = GLUBED) 191 mg/dL 74-106 H Performed by certified carousel operator at [facility] [id number] 17:13:00* Test Item Value Reference Range Interpretation Comments GLUBED (test code = GLUBED) 275 mg/dL 74-106 H Performed by certified carousel operator at [facility] [id number] 15:12:00* Test Item Value Reference Range Interpretation Comments GLUBED (test code = GLUBED) 82 mg/dL 74-106 N Performed by certified carousel operator at [facility] - XR CHEST 2 [id number] 14:53:00 FAX: Josh Roldan MD [phone] [place]: B St: ADM FAX: Kevin Bass MD [phone] FAX: Kevin Marrero MD [phone] Name: DAYANA RICHARDSON [facility] : 1960 Age/S: 59/F [address] [facility] Unit #: [id number] Loc: [place] [address] Phys: Kevin Real MD Acct: [id number] Dis Date: Status: ADM IN ONE #: [phone] Exam Date: 07/12/2019 1443 FAX #: [phone] Reason: SOB EXAMS: CPT CODE: [id number] XR CHEST 2 V 65087 REASON FOR EXAM: SOB Exam Order Date: 07/12/2019 12:00 AM Ordering: Kevin Real MD Attending:Josh Roldan MD Location:[facility] PROCEDURE: - XR CHEST 2 V COMPAR WAYNE: FINDINGS: PA and lateral views of the chest show clear lung s without evidence of consolidation. No evidence of effusion. The heart si ze is within normal limits. Pulmonary vasculatures are unremarkable. The osseous structures are grossly intact. IMPRESSION: Persiste nt small nodular infiltrate in the left lobe measured approximately 1.5 cm (seen only on the PA view of the chest). Severe hyperinflated lungs at 7093 Reported and signed by: Armando Vogt M.D. CC: Keegan Roldan MD; Kevin Veronica MD; Kevin Real MD Technologist: GAIL PALACIOS RT(R ) Trnscrd Date/Time/By: 07/12/2019 (2447) : By: EnriqueVTL Orig Print D/T: S: 07/12/2019 (2448) PAGE 1 Signed Report BASIC METABOLIC [id number] 11:55:00* Test Item Value Reference Range Interpretation Comments SODIUM (test code = NA) 142 mmol/L 136-145 N POTASSIUM (test code = K) 3.9 mmol/L 3.5-5.1 N CHLORIDE (test code = CL) 101.0 mmol/L 98-107 N CARBON DIOXIDE (test code = CO2) 36.0 mmol/L 21-32 H ANION GAP (test code = GAP) 8.9 10-20 L GLUCOSE (test code = GLU) 81 mg/dL 74-106 N BLOOD UREA NITROGEN (test code = BUN) 17 mg/dL 7-18 N GLOMERULAR FILTRATION RATE (test code = GFR) > 60 mL/min >=60 Estimated GFR by using Modified MDRD formula.Chronic kidney disease is defined as either kidney damageor GFR <60 mL/min/1.73 m2 for >3 months. CREATININE (test code = CREAT) 0.60 mg/dL 0.55-1.02 N Note change in reference range due to change in reagent. BUN/CREATININE RATIO (test code = BUN/CREA) 30.5 10-20 H CALCIUM (test code = CA) 8.5 mg/dL 8.5-10.1 N CBC W/AUTO [id number] 11:08:00* Test Item Value Reference Range Interpretation Comments WHITE BLOOD CELL (test code = WBC) 14.7 K/mm3 4.5-12.5 H RED BLOOD CELL (test code = RBC) 2.95 mill/mm3 3.7-5.2 L HEMOGLOBIN (test code = HGB) 8.4 gram/dL 11.5-15.5 L HEMATOCRIT (test code = HCT) 27.8 % 36.0-46.0 L MEAN CELL VOLUME (test code = MCV) 94.2 fL 80-98 N MEAN CELL HGB (test code = MCH) 28.5 picogram 27.0-33.0 N MEAN CELL HGB CONCETRATION (test code = MCHC) 30.2 gram/dL 33.0-36. 0 L RED CELL DISTRIBUTION WIDTH (test code = RDW) 14.2 % 11.6-16. 2 N RED CELL DISTRIBUTION WIDTH SD (test code = RDW-SD) 49.3 fL 37 .0-51.0 N PLATELET COUNT (test code = PLT) 281 K/mm3 150-450 N MEAN PLATELET VOLUME (test code = MPV) 12.4 fL 6.7-11.0 H NEUTROPHIL % (test code = NT%) 74.0 % 39.0-69.0 H IMMATURE GRANULOCYTE % (test code = IG%) 1.2 % 0.0-5.0 N LYMPHOCYTE % (test code = LY%) 14.2 % 25.0-55.0 L MONOCYTE % (test code = MO%) 10.1 % 0.0-10.0 H EOSINOPHIL % (test code = EO%) 0.4 % 0.0-5.0 N BASOPHIL % (test code = BA%) 0.1 % 0.0-1.0 N NUCLEATED RBC % (test code = NRBC%) 0.0 % 0-0 N NEUTROPHIL # (test code = NT#) 10.86 K/mm3 1.8-7.7 H IMMATURE GRANULOCYTE # (test code = IG#) 0.18 x10 3/uL 0-0.03 H LYMPHOCYTE # (test code = LY#) 2.09 K/mm3 1.0-5.0 N MONOCYTE # (test code = MO#) 1.48 K/mm3 0-0.8 H EOSINOPHIL # (test code = EO#) 0.06 K/mm3 0.0-0.5 N BASOPHIL # (test code = BA#) 0.02 K/mm3 0.0-0.2 N NUCLEATED RBC # (test code = NRBC#) 0.00 K/mm3 0.0-0.1 N [id number] 04:10:00* Test Item Value Reference Range Interpretation Comments GLUBED (test code = GLUBED) 134 mg/dL 74-106 H Performed by certified carousel operator at [facility] [id number] 21:40:00* Test Item Value Reference Range Interpretation Comments GLUBED (test code = GLUBED) 226 mg/dL 74-106 H Performed by certified carousel operator at [facility] [id number] 17:17:00* Test Item Value Reference Range Interpretation Comments GLUBED (test code = GLUBED) 278 mg/dL 74-106 H [facility] certified carousel operator [facility] [id number] 11:53:00* Test Item Value Reference Range Interpretation Comments GLUBED (test code = GLUBED) 103 mg/dL 74-106 N [facility] certified carousel operator [facility] [id number] 04:50:00* Test Item Value Reference Range Interpretation Comments GLUBED (test code = GLUBED) 93 mg/dL 74-106 N Performed by certified carousel operator at [facility] [id number] 22:45:00* Test Item Value Reference Range Interpretation Comments GLUBED (test code = GLUBED) 278 mg/dL 74-106 H Performed by certified carousel operator at [facility] [id number] 16:35:00* Test Item Value Reference Range Interpretation Comments GLUBED (test code = GLUBED) 215 mg/dL 74-106 H Performed by certified carousel operator at [facility] [id number] 13:13:00* Test Item Value Reference Range Interpretation Comments GLUBED (test code = GLUBED) 216 mg/dL 74-106 H Performed by certified carousel operator at [facility] - XR CHEST 1 [id number] 08:47:00 FAX: Andrew Guerra [phone] [place]: B St: ADM FAX: Josh Roldan MD [phone] FAX: Kevin Bass MD [phone] Name: DAYANA RICHARDSON [facility] : 1960 Age/S: 59/F [address] [facility] Unit #: [id number] Loc: [address] [address] Phys: Andrew Guerra Acct: [id number] Dis Date: Status: ADM IN ONE #: [phone] Exam Date: 07/10/2019820 FAX #: [phone] Reason: updated pulm status EXAMS: CPT CODE: [id number] XR CHEST 1 V 45072 REASON FOR EXAM: updated pulm status Exam Order Date: 07/10/2019 5:00 AM Ordering M.D.: SOHAN Roberts PROCEDURE: - XR KWADWO ST 1 V COMPARISON: Frontal chest x-ray July 09, 2019 FINDINGS: Hyperinflation of the bilateral lungs with mild bibasilar subsegmental atelectasis appears unchanged from the previous examination. The upper lungs are clear. Cardiomediastinal silhouette is normal in size for technique. The mediastinal contours are within normal l imits. Musculoskeletal structures are unchanged from the previous study. The visualized upper abdomen is within normal limits. IMPRESSION: No significant change from prior exam. Hyperinflation of the bilateral lungs may represent an air-trapping process. Location: [facility] at 0847 Reported and signed by: Klaus Wylie MD CC: Andrew Guerra; Josh Roldan MD; Gopi Veronica MD Technologist: Tavia Salas(R) Trns crd Date/Time/By: 07/10/2019 (0847) : By: [email or web address] [facility] Print D/T: S: 07/10/2019 (18) PAGE 1 Signed Report CBC W/MANUAL [id number] 04:12:00* Test Item Value Reference Range Interpretation Comments WHITE BLOOD CELL (test code = WBC) 8.0 K/mm3 4.5-12.5 N RED BLOOD CELL (test code = RBC) 3.28 mill/mm3 3.7-5.2 L HEMOGLOBIN (test code = HGB) 9.4 gram/dL 11.5-15.5 L HEMATOCRIT (test code = HCT) 30.3 % 36.0-46.0 L MEAN CELL VOLUME (test code = MCV) 92.4 fL 80-98 N MEAN CELL HGB (test code = MCH) 28.7 picogram 27.0-33.0 N MEAN CELL HGB CONCETRATION (test code = MCHC) 31.0 gram/dL 33.0-36. 0 L RED CELL DISTRIBUTION WIDTH (test code = RDW) 14.2 % 11.6-16. 2 N RED CELL DISTRIBUTION WIDTH SD (test code = RDW-SD) 48.4 fL 37 .0-51.0 N PLATELET COUNT (test code = PLT) 298 K/mm3 150-450 N MEAN PLATELET VOLUME (test code = MPV) 12.6 fL 6.7-11.0 H IMMATURE GRANULOCYTE % (test code = IG%) 1.1 % 0.0-5.0 N NUCLEATED RBC % (test code = NRBC%) 0.0 % 0-0 N NEUTROPHIL # (test code = NT#) 6.17 K/mm3 1.8-7.7 N IMMATURE GRANULOCYTE # (test code = IG#) 0.09 x10 3/uL 0-0.03 H LYMPHOCYTE # (test code = LY#) 1.24 K/mm3 1.0-5.0 N MONOCYTE # (test code = MO#) 0.48 K/mm3 0-0.8 N EOSINOPHIL # (test code = EO#) 0.00 K/mm3 0.0-0.5 N BASOPHIL # (test code = BA#) 0.01 K/mm3 0.0-0.2 N NUCLEATED RBC # (test code = NRBC#) 0.00 K/mm3 0.0-0.1 N MANUAL DIFF REQUIRED (test code = MDIFF) YES STAIN ACCEPTABILITY (test code = STN ACCEPTABLE) STAIN ACCEPTABLE TOTAL CELLS COUNTED (test code = TCC) 115 #CELLS SEGMENTED NEUTROPHILS (test code = SEG) 81.7 % 39-69 H BAND NEUTROPHIL (test code = BAND) 0 % 0-10 N LYMPHOCYTE (test code = LYMPH) 13.9 % 25-55 L REACTIVE LYMPH (test code = RELYMPH) 0.9 % MONOCYTE (test code = MON) 3.5 % 0-10 N EOSINOPHIL (test code = EOS) 0 % 0.0-5.0 N BASOPHIL (test code = BASO) 0 % 0-1.0 N METAMYELOCYTE (test code = META) 0 % 0-0 N MYELOCYTE (test code = MYELO) 0 % 0.0-0.0 N PROMYELOCYTE (test code = PROM) 0 % 0-0 N ANISOCYTOSIS (test code = ANISO) 1+ MACROCYTOSIS (test code = MACR) 1+ PLATELET ESTIMATE (test code = PLTEST) ADEQUATE PLATELET MORPHOLOGY (test code = PLTMORPH) NORMAL IMMATURE FORMS (test code = IMMAT) 0 % 0-0 N [id number] 04:05:00* Test Item Value Reference Range Interpretation Comments GLUBED (test code = GLUBED) 126 mg/dL 74-106 H Performed by certified carousel operator at [facility] BASIC METABOLIC [id number] 04:00:00* Test Item Value Reference Range Interpretation Comments SODIUM (test code = NA) 142 mmol/L 136-145 N POTASSIUM (test code = K) 4.3 mmol/L 3.5-5.1 N CHLORIDE (test code = CL) 100.0 mmol/L 98-107 N CARBON DIOXIDE (test code = CO2) 36.0 mmol/L 21-32 H ANION GAP (test code = GAP) 10.3 10-20 N GLUCOSE (test code = GLU) 110 mg/dL 74-106 H BLOOD UREA NITROGEN (test code = BUN) 22 mg/dL 7-18 H GLOMERULAR FILTRATION RATE (test code = GFR) > 60 mL/min >=60 Estimated GFR by using Modified MDRD formula.Chronic kidney disease is defined as either kidney damageor GFR <60 mL/min/1.73 m2 for >3 months. CREATININE (test code = CREAT) 0.60 mg/dL 0.55-1.02 N Note change in reference range due to change in reagent. BUN/CREATININE RATIO (test code = BUN/CREA) 33.9 10-20 H CALCIUM (test code = CA) 8.2 mg/dL 8.5-10.1 L [id number] 04:00:00* Test Item Value Reference Range Interpretation Comments PHOSPHORUS (test code = PHOS) 3.8 mg/dL 2.5-4.9 N [id number] 04:00:00* Test Item Value Reference Range Interpretation Comments MAGNESIUM (test code = MAG) 1.9 mg/dL 1.8-2.4 N BASIC METABOLIC [id number] 03:56:00* Test Item Value Reference Range Interpretation Comments SODIUM (test code = NA) 142 mmol/L 136-145 N POTASSIUM (test code = K) 4.3 mmol/L 3.5-5.1 N CHLORIDE (test code = CL) 100.0 mmol/L 98-107 N CARBON DIOXIDE (test code = CO2) mmol/L 21-32 ANION GAP (test code = GAP) 10-20 GLUCOSE (test code = GLU) mg/dL 74-106 BLOOD UREA NITROGEN (test code = BUN) mg/dL 7-18 GLOMERULAR FILTRATION RATE (test code = GFR) mL/min >=60 CREATININE (test code = CREAT) mg/dL 0.55-1.02 BUN/CREATININE RATIO (test code = BUN/CREA) 10-20 CALCIUM (test code = CA) mg/dL 8.5-10.1 [id number] 03:56:00* Test Item Value Reference Range Interpretation Comments PHOSPHORUS (test code = PHOS) mg/dL 2.5-4.9 [id number] 03:56:00* Test Item Value Reference Range Interpretation Comments MAGNESIUM (test code = MAG) mg/dL 1.8-2.4 CBC W/MANUAL [id number] 03:47:00* Test Item Value Reference Range Interpretation Comments WHITE BLOOD CELL (test code = WBC) 8.0 K/mm3 4.5-12.5 N RED BLOOD CELL (test code = RBC) 3.28 mill/mm3 3.7-5.2 L HEMOGLOBIN (test code = HGB) 9.4 gram/dL 11.5-15.5 L HEMATOCRIT (test code = HCT) 30.3 % 36.0-46.0 L MEAN CELL VOLUME (test code = MCV) 92.4 fL 80-98 N MEAN CELL HGB (test code = MCH) 28.7 picogram 27.0-33.0 N MEAN CELL HGB CONCETRATION (test code = MCHC) 31.0 gram/dL 33.0-36. 0 L RED CELL DISTRIBUTION WIDTH (test code = RDW) 14.2 % 11.6-16. 2 N RED CELL DISTRIBUTION WIDTH SD (test code = RDW-SD) 48.4 fL 37 .0-51.0 N PLATELET COUNT (test code = PLT) 298 K/mm3 150-450 N MEAN PLATELET VOLUME (test code = MPV) 12.6 fL 6.7-11.0 H IMMATURE GRANULOCYTE % (test code = IG%) 1.1 % 0.0-5.0 N NUCLEATED RBC % (test code = NRBC%) 0.0 % 0-0 N NEUTROPHIL # (test code = NT#) 6.17 K/mm3 1.8-7.7 N IMMATURE GRANULOCYTE # (test code = IG#) 0.09 x10 3/uL 0-0.03 H LYMPHOCYTE # (test code = LY#) 1.24 K/mm3 1.0-5.0 N MONOCYTE # (test code = MO#) 0.48 K/mm3 0-0.8 N EOSINOPHIL # (test code = EO#) 0.00 K/mm3 0.0-0.5 N BASOPHIL # (test code = BA#) 0.01 K/mm3 0.0-0.2 N NUCLEATED RBC # (test code = NRBC#) 0.00 K/mm3 0.0-0.1 N MANUAL DIFF REQUIRED (test code = MDIFF) YES STAIN ACCEPTABILITY (test code = STN ACCEPTABLE) TOTAL CELLS COUNTED (test code = TCC) #CELLS SEGMENTED NEUTROPHILS (test code = SEG) % 39-69 LYMPHOCYTE (test code = LYMPH) % 25-55 MONOCYTE (test code = MON) % 0-10 EOSINOPHIL (test code = EOS) % 0.0-5.0 CABOT RINGS (test code = CAB) MORPHOLOGY COMMENT (test code = MOC) PLATELET ESTIMATE (test code = PLTEST) PLATELET MORPHOLOGY (test code = PLTMORPH) CBC W/MANUAL [id number] 03:47:00* Test Item Value Reference Range Interpretation Comments WHITE BLOOD CELL (test code = WBC) 8.0 K/mm3 4.5-12.5 N RED BLOOD CELL (test code = RBC) 3.28 mill/mm3 3.7-5.2 L HEMOGLOBIN (test code = HGB) 9.4 gram/dL 11.5-15.5 L HEMATOCRIT (test code = HCT) 30.3 % 36.0-46.0 L MEAN CELL VOLUME (test code = MCV) 92.4 fL 80-98 N MEAN CELL HGB (test code = MCH) 28.7 picogram 27.0-33.0 N MEAN CELL HGB CONCETRATION (test code = MCHC) 31.0 gram/dL 33.0-36. 0 L RED CELL DISTRIBUTION WIDTH (test code = RDW) 14.2 % 11.6-16. 2 N RED CELL DISTRIBUTION WIDTH SD (test code = RDW-SD) 48.4 fL 37 .0-51.0 N PLATELET COUNT (test code = PLT) 298 K/mm3 150-450 N MEAN PLATELET VOLUME (test code = MPV) 12.6 fL 6.7-11.0 H IMMATURE GRANULOCYTE % (test code = IG%) 1.1 % 0.0-5.0 N NUCLEATED RBC % (test code = NRBC%) 0.0 % 0-0 N NEUTROPHIL # (test code = NT#) 6.17 K/mm3 1.8-7.7 N IMMATURE GRANULOCYTE # (test code = IG#) 0.09 x10 3/uL 0-0.03 H LYMPHOCYTE # (test code = LY#) 1.24 K/mm3 1.0-5.0 N MONOCYTE # (test code = MO#) 0.48 K/mm3 0-0.8 N EOSINOPHIL # (test code = EO#) 0.00 K/mm3 0.0-0.5 N BASOPHIL # (test code = BA#) 0.01 K/mm3 0.0-0.2 N NUCLEATED RBC # (test code = NRBC#) 0.00 K/mm3 0.0-0.1 N MANUAL DIFF REQUIRED (test code = MDIFF) YES STAIN ACCEPTABILITY (test code = STN ACCEPTABLE) TOTAL CELLS COUNTED (test code = TCC) #CELLS SEGMENTED NEUTROPHILS (test code = SEG) % 39-69 LYMPHOCYTE (test code = LYMPH) % 25-55 MONOCYTE (test code = MON) % 0-10 EOSINOPHIL (test code = EOS) % 0.0-5.0 MORPHOLOGY COMMENT (test code = MOC) PLATELET ESTIMATE (test code = PLTEST) PLATELET MORPHOLOGY (test code = PLTMORPH) CBC W/MANUAL [id number] 03:47:00* Test Item Value Reference Range Interpretation Comments WHITE BLOOD CELL (test code = WBC) 8.0 K/mm3 4.5-12.5 N RED BLOOD CELL (test code = RBC) 3.28 mill/mm3 3.7-5.2 L HEMOGLOBIN (test code = HGB) 9.4 gram/dL 11.5-15.5 L HEMATOCRIT (test code = HCT) 30.3 % 36.0-46.0 L MEAN CELL VOLUME (test code = MCV) 92.4 fL 80-98 N MEAN CELL HGB (test code = MCH) 28.7 picogram 27.0-33.0 N MEAN CELL HGB CONCETRATION (test code = MCHC) 31.0 gram/dL 33.0-36. 0 L RED CELL DISTRIBUTION WIDTH (test code = RDW) 14.2 % 11.6-16. 2 N RED CELL DISTRIBUTION WIDTH SD (test code = RDW-SD) 48.4 fL 37 .0-51.0 N PLATELET COUNT (test code = PLT) 298 K/mm3 150-450 N MEAN PLATELET VOLUME (test code = MPV) 12.6 fL 6.7-11.0 H IMMATURE GRANULOCYTE % (test code = IG%) 1.1 % 0.0-5.0 N NUCLEATED RBC % (test code = NRBC%) 0.0 % 0-0 N NEUTROPHIL # (test code = NT#) 6.17 K/mm3 1.8-7.7 N IMMATURE GRANULOCYTE # (test code = IG#) 0.09 x10 3/uL 0-0.03 H LYMPHOCYTE # (test code = LY#) 1.24 K/mm3 1.0-5.0 N MONOCYTE # (test code = MO#) 0.48 K/mm3 0-0.8 N EOSINOPHIL # (test code = EO#) 0.00 K/mm3 0.0-0.5 N BASOPHIL # (test code = BA#) 0.01 K/mm3 0.0-0.2 N NUCLEATED RBC # (test code = NRBC#) 0.00 K/mm3 0.0-0.1 N MANUAL DIFF REQUIRED (test code = MDIFF) YES STAIN ACCEPTABILITY (test code = STN ACCEPTABLE) TOTAL CELLS COUNTED (test code = TCC) #CELLS SEGMENTED NEUTROPHILS (test code = SEG) % 39-69 LYMPHOCYTE (test code = LYMPH) % 25-55 MONOCYTE (test code = MON) % 0-10 MORPHOLOGY COMMENT (test code = MOC) PLATELET ESTIMATE (test code = PLTEST) PLATELET MORPHOLOGY (test code = PLTMORPH) CBC W/MANUAL [id number] 03:46:00* Test Item Value Reference Range Interpretation Comments WHITE BLOOD CELL (test code = WBC) 8.0 K/mm3 4.5-12.5 N RED BLOOD CELL (test code = RBC) 3.28 mill/mm3 3.7-5.2 L HEMOGLOBIN (test code = HGB) 9.4 gram/dL 11.5-15.5 L HEMATOCRIT (test code = HCT) 30.3 % 36.0-46.0 L MEAN CELL VOLUME (test code = MCV) 92.4 fL 80-98 N MEAN CELL HGB (test code = MCH) 28.7 picogram 27.0-33.0 N MEAN CELL HGB CONCETRATION (test code = MCHC) 31.0 gram/dL 33.0-36. 0 L RED CELL DISTRIBUTION WIDTH (test code = RDW) 14.2 % 11.6-16. 2 N RED CELL DISTRIBUTION WIDTH SD (test code = RDW-SD) 48.4 fL 37 .0-51.0 N PLATELET COUNT (test code = PLT) 298 K/mm3 150-450 N MEAN PLATELET VOLUME (test code = MPV) 12.6 fL 6.7-11.0 H IMMATURE GRANULOCYTE % (test code = IG%) 1.1 % 0.0-5.0 N NUCLEATED RBC % (test code = NRBC%) 0.0 % 0-0 N NEUTROPHIL # (test code = NT#) 6.17 K/mm3 1.8-7.7 N IMMATURE GRANULOCYTE # (test code = IG#) 0.09 x10 3/uL 0-0.03 H LYMPHOCYTE # (test code = LY#) 1.24 K/mm3 1.0-5.0 N MONOCYTE # (test code = MO#) 0.48 K/mm3 0-0.8 N EOSINOPHIL # (test code = EO#) 0.00 K/mm3 0.0-0.5 N BASOPHIL # (test code = BA#) 0.01 K/mm3 0.0-0.2 N NUCLEATED RBC # (test code = NRBC#) 0.00 K/mm3 0.0-0.1 N MANUAL DIFF REQUIRED (test code = MDIFF) YES STAIN ACCEPTABILITY (test code = STN ACCEPTABLE) TOTAL CELLS COUNTED (test code = TCC) #CELLS SEGMENTED NEUTROPHILS (test code = SEG) % 39-69 LYMPHOCYTE (test code = LYMPH) % 25-55 MONOCYTE (test code = MON) % 0-10 EOSINOPHIL (test code = EOS) % 0.0-5.0 CABOT RINGS (test code = CAB) MORPHOLOGY COMMENT (test code = MOC) PLATELET ESTIMATE (test code = PLTEST) PLATELET MORPHOLOGY (test code = PLTMORPH) CBC W/MANUAL [id number] 03:46:00* Test Item Value Reference Range Interpretation Comments WHITE BLOOD CELL (test code = WBC) 8.0 K/mm3 4.5-12.5 N RED BLOOD CELL (test code = RBC) 3.28 mill/mm3 3.7-5.2 L HEMOGLOBIN (test code = HGB) 9.4 gram/dL 11.5-15.5 L HEMATOCRIT (test code = HCT) 30.3 % 36.0-46.0 L MEAN CELL VOLUME (test code = MCV) 92.4 fL 80-98 N MEAN CELL HGB (test code = MCH) 28.7 picogram 27.0-33.0 N MEAN CELL HGB CONCETRATION (test code = MCHC) 31.0 gram/dL 33.0-36. 0 L RED CELL DISTRIBUTION WIDTH (test code = RDW) 14.2 % 11.6-16. 2 N RED CELL DISTRIBUTION WIDTH SD (test code = RDW-SD) 48.4 fL 37 .0-51.0 N PLATELET COUNT (test code = PLT) 298 K/mm3 150-450 N MEAN PLATELET VOLUME (test code = MPV) 12.6 fL 6.7-11.0 H IMMATURE GRANULOCYTE % (test code = IG%) 1.1 % 0.0-5.0 N NUCLEATED RBC % (test code = NRBC%) 0.0 % 0-0 N NEUTROPHIL # (test code = NT#) 6.17 K/mm3 1.8-7.7 N IMMATURE GRANULOCYTE # (test code = IG#) 0.09 x10 3/uL 0-0.03 H LYMPHOCYTE # (test code = LY#) 1.24 K/mm3 1.0-5.0 N MONOCYTE # (test code = MO#) 0.48 K/mm3 0-0.8 N EOSINOPHIL # (test code = EO#) 0.00 K/mm3 0.0-0.5 N BASOPHIL # (test code = BA#) 0.01 K/mm3 0.0-0.2 N NUCLEATED RBC # (test code = NRBC#) 0.00 K/mm3 0.0-0.1 N MANUAL DIFF REQUIRED (test code = MDIFF) YES STAIN ACCEPTABILITY (test code = STN ACCEPTABLE) TOTAL CELLS COUNTED (test code = TCC) #CELLS SEGMENTED NEUTROPHILS (test code = SEG) % 39-69 LYMPHOCYTE (test code = LYMPH) % 25-55 MONOCYTE (test code = MON) % 0-10 EOSINOPHIL (test code = EOS) % 0.0-5.0 CABOT RINGS (test code = CAB) MORPHOLOGY COMMENT (test code = MOC) PLATELET ESTIMATE (test code = PLTEST) PLATELET MORPHOLOGY (test code = PLTMORPH) [id number] 19:39:00* Test Item Value Reference Range Interpretation Comments GLUBED (test code = GLUBED) 152 mg/dL 74-106 H Performed by certified carousel operator at [facility] [id number] 16:32:00* Test Item Value Reference Range Interpretation Comments GLUBED (test code = GLUBED) 412 mg/dL 74-106 H Performed by certified carousel operator at [facility] [id number] 10:22:00* Test Item Value Reference Range Interpretation Comments GLUBED (test code = GLUBED) 286 mg/dL 74-106 H Performed by certified carousel operator at [facility] - XR CHEST 1 [id number] 07:36:00 FAX: Andrew Guerra [phone] [place]: St: ADM FAX: Josh Roldan MD [phone] FAX: Kevin Bass MD [phone] Name: DAYANA RICHARDSON [facility] : 1960 Age/S: 59/F [address] [facility] Unit #: [id number] Loc: [facility] [place] [address] Phys: Andrew Guerra Acct: [id number] Dis Date: Status: ADM IN PH ONE #: [phone] Exam Date: 07/09/2019 0300 FAX #: [phone] Reason: updated pulm status EXAMS: CPT CODE: [id number] XR CHEST 1 V 38145 REASON FOR EXAM: updated pulm status Exam Order Date: 07/09/2019 5:00 AM Ordering M.DAnn: SOHAN Roberts PROCEDURE: - XR KWADWO ST 1 V COMPARISON: Frontal chest x-ray the previous morning FINDINGS: The lungs are hyperinflated. There is mild subsegmenta l atelectasis in the lung bases. Upper lungs are clear. No pleural effusio n or pneumothorax. Cardiac mediastinal silhouette is normal in size. Degenerative changes are seen throughout the visualized spine. Up per abdomen is radiographically unremarkable. IMPR ESSION: Subsegmental atelectasis in the lung bases. Lungs are otherwise clear. Both lungs are also hyperinflated, similar to prior exam. This ma y represent an air-trapping process. Location: [facility] at 0736 Reported and signed by: Klaus Wylie MD CC: Andrew Guerra; Josh Roldan MD; Kevin Veronica MD Technologist: Robert Washington RT(R); NOE STEPHEN, RT(R) Trnscrd Date/Time/By: 07/09/2019 (0736) : By: t [email or web address].[email or web address] [facility] Print D/T: S: 07/09/2019 (0739) PAGE 1 Signed Report BASIC METABOLIC [id number] 05:54:00* Test Item Value Reference Range Interpretation Comments SODIUM (test code = NA) 141 mmol/L 136-145 N POTASSIUM (test code = K) 3.7 mmol/L 3.5-5.1 N CHLORIDE (test code = CL) 100.0 mmol/L 98-107 N CARBON DIOXIDE (test code = CO2) 35.0 mmol/L 21-32 H ANION GAP (test code = GAP) 9.7 10-20 L GLUCOSE (test code = GLU) 189 mg/dL 74-106 H BLOOD UREA NITROGEN (test code = BUN) 24 mg/dL 7-18 H GLOMERULAR FILTRATION RATE (test code = GFR) > 60 mL/min >=60 Estimated GFR by using Modified MDRD formula.Chronic kidney disease is defined as either kidney damageor GFR <60 mL/min/1.73 m2 for >3 months. CREATININE (test code = CREAT) 0.80 mg/dL 0.55-1.02 N Note change in reference range due to change in reagent. BUN/CREATININE RATIO (test code = BUN/CREA) 30.3 10-20 H CALCIUM (test code = CA) 8.4 mg/dL 8.5-10.1 L [id number] 05:54:00* Test Item Value Reference Range Interpretation Comments PHOSPHORUS (test code = PHOS) 2.8 mg/dL 2.5-4.9 N [id number] 05:54:00* Test Item Value Reference Range Interpretation Comments MAGNESIUM (test code = MAG) 1.3 mg/dL 1.8-2.4 L BASIC METABOLIC [id number] 05:47:00* Test Item Value Reference Range Interpretation Comments SODIUM (test code = NA) 141 mmol/L 136-145 N POTASSIUM (test code = K) 3.7 mmol/L 3.5-5.1 N CHLORIDE (test code = CL) 100.0 mmol/L 98-107 N CARBON DIOXIDE (test code = CO2) mmol/L 21-32 ANION GAP (test code = GAP) 10-20 GLUCOSE (test code = GLU) mg/dL 74-106 BLOOD UREA NITROGEN (test code = BUN) mg/dL 7-18 GLOMERULAR FILTRATION RATE (test code = GFR) mL/min >=60 CREATININE (test code = CREAT) mg/dL 0.55-1.02 BUN/CREATININE RATIO (test code = BUN/CREA) 10-20 CALCIUM (test code = CA) mg/dL 8.5-10.1 [id number] 05:47:00* Test Item Value Reference Range Interpretation Comments PHOSPHORUS (test code = PHOS) mg/dL 2.5-4.9 [id number] 05:47:00* Test Item Value Reference Range Interpretation Comments MAGNESIUM (test code = MAG) mg/dL 1.8-2.4 CBC W/AUTO [id number] 05:23:00* Test Item Value Reference Range Interpretation Comments WHITE BLOOD CELL (test code = WBC) 14.2 K/mm3 4.5-12.5 H RED BLOOD CELL (test code = RBC) 3.13 mill/mm3 3.7-5.2 L HEMOGLOBIN (test code = HGB) 8.9 gram/dL 11.5-15.5 L HEMATOCRIT (test code = HCT) 29.6 % 36.0-46.0 L MEAN CELL VOLUME (test code = MCV) 94.6 fL 80-98 N MEAN CELL HGB (test code = MCH) 28.4 picogram 27.0-33.0 N MEAN CELL HGB CONCETRATION (test code = MCHC) 30.1 gram/dL 33.0-36. 0 L RED CELL DISTRIBUTION WIDTH (test code = RDW) 14.2 % 11.6-16. 2 N RED CELL DISTRIBUTION WIDTH SD (test code = RDW-SD) 49.4 fL 37 .0-51.0 N PLATELET COUNT (test code = PLT) 324 K/mm3 150-450 N MEAN PLATELET VOLUME (test code = MPV) 12.4 fL 6.7-11.0 H NEUTROPHIL % (test code = NT%) 90.2 % 39.0-69.0 H IMMATURE GRANULOCYTE % (test code = IG%) 0.8 % 0.0-5.0 N LYMPHOCYTE % (test code = LY%) 6.4 % 25.0-55.0 L MONOCYTE % (test code = MO%) 2.5 % 0.0-10.0 N EOSINOPHIL % (test code = EO%) 0.0 % 0.0-5.0 N BASOPHIL % (test code = BA%) 0.1 % 0.0-1.0 N NUCLEATED RBC % (test code = NRBC%) 0.0 % 0-0 N NEUTROPHIL # (test code = NT#) 12.83 K/mm3 1.8-7.7 H IMMATURE GRANULOCYTE # (test code = IG#) 0.11 x10 3/uL 0-0.03 H LYMPHOCYTE # (test code = LY#) 0.91 K/mm3 1.0-5.0 L MONOCYTE # (test code = MO#) 0.35 K/mm3 0-0.8 N EOSINOPHIL # (test code = EO#) 0.00 K/mm3 0.0-0.5 N BASOPHIL # (test code = BA#) 0.02 K/mm3 0.0-0.2 N NUCLEATED RBC # (test code = NRBC#) 0.00 K/mm3 0.0-0.1 N MANUAL DIFF REQUIRED (test code = MDIFF) NO [id number] 04:36:00* Test Item Value Reference Range Interpretation Comments GLUBED (test code = GLUBED) 174 mg/dL 74-106 H Performed by certified carousel operator at [facility] [id number] 23:07:00* Test Item Value Reference Range Interpretation Comments GLUBED (test code = GLUBED) 104 mg/dL 74-106 N Performed by certified carousel operator at [facility] [id number] 10:36:00* Test Item Value Reference Range Interpretation Comments GLUBED (test code = GLUBED) 119 mg/dL 74-106 H Performed by certified carousel operator at [facility] - XR CHEST 1 [id number] 06:35:00 FAX: Andrew Guerra [phone] [place]: B St: ADM FAX: Josh Roldan MD [phone] FAX: Kevin Bass MD [phone] Name: DAYANA RICHARDSON [facility] : 1960 Age/S: 59/F [address] [facility]: [id number] Loc: V.S12 [place] [address] Phys: Andrew Guerra Acct: [id number] Dis Date: Status: ADM IN ONE #: [phone] Exam Date: 07/08/2019 0504 FAX #: [phone] Reason: updated pulm status EXAMS: CPT CODE: [id number] XR CHEST 1 V 50694 REASON FOR EXAM: updated pulm status EXAM ORDER DATE: 07/08/2019 5:00 AM Ordering: SOHAN Roberts Attending:Josh Roldan MD Location: PROCEDURE: - XR CHEST 1 V COMPARISON: 07/07/2019 FINDINGS: Portable AP frontal view of the chest obtain ed at 4:22 AM shows clear lungs without evidence of consolidation. There i s no evidence of effusion. The heart size is minimally enlarged. Pulmonary vasculatures are minimally congested. IMPRESSION: Conges tive heart failure with interstitial pulmonary edema at 0635 Reported an d signed by: Armando Vogt M.D. CC: Andrew Guerra; Josh Roldan MD; Kevin Veronica MD Technologist: Robert Washington RT(R); SONJA STEPHEN RT(R) Trnscrd Date/Time/By: 07/08/2019 (0635) : By: SeverianoL Orig Print D/T: S: 07/08/2019 (0638) PAGE 1 Signed Report [id number] 04:26:00 * Test Item Value Reference Range Interpretation Comments GLUBED (test code = GLUBED) 113 mg/dL 74-106 H Performed by certified carousel operator at [facility] - XR CHEST 1 [id number] 22:01:00 FAX: Chuck Wilson MD [phone] [place]: St: ADM FAX: Josh Roldan MD [phone] FAX: Kevin Bass MD [phone] Name: DAYAAN RICHARDSON [facility] : 1960 Age/S: 59/F [address] [facility] Unit #: [id number] Loc: [place] [address] Phys: Chuck Orourke MD Acct: [id number] Dis Date: Status: ADM IN PH ONE #: [phone] Exam Date: 07/07/2019 1853 FAX #: [phone] Reason: sob EXAMS: CPT CODE: [id number] XR CHEST 1 V 26199 EXAM: Chest x- ray, one view; INFORMATION: Shortness of breath, respiratory distr ess; COPD; IMPRESSION: 1. The previously described patch y densities have improved. Lungs are hyperinflated but otherwise fairly well aerated. 2. The heart size is within upper limits of normal. 3. Increased density of the first rib. This was already present on a s tudy from September 2013 and is therefore most likely of no clinical sign ificance. Location code: [facility] Electronical ly Signed by Margaret Laguna on 07/07/2019 at 2 201 Reported and signed by: Clif Laguna M.D. CC: Chuck Orourke MD; Josh Roldan MD; Kevin Mayberry MD Technologist: FRANKI STEIN; RT Irina(R Tr [facility] Date/Time/By: 07/07/2019 (2200) : By: EnriqueGRW Orig Print D/T: S: 07/07/2019 (2203) PAGE 1 Kimberly d Report [id number] 21:23:00* Test Item Value Reference Range Interpretation Comments GLUBED (test code = GLUBED) 159 mg/dL 74-106 H Performed by certified carousel operator at [facility] ARTERIAL BLOOD [id number] 18:54:00* Test Item Value Reference Range Interpretation Comments ARTERIAL BLOOD GAS PH (test code = PHA) 7.34 7.35-7.45 L ARTERIAL BLOOD GAS PCO2 (test code = PCO2A) 62.7 mm Hg 35-45 H ARTERIAL BLOOD GAS PO2 (test code = PO2A) 113.5 mmHg 80-100 H BICARBONATE TOTAL HCO3 (test code = HCO3) 32.9 mmol/L 23.0-27.0 H BASE EXCESS (test code = TONIA) 5.8 mmol/L -3.0-5.0 H ABG O2 SATURATION (test code = SATA) 97.9 % 90.0-98.0 N ABG TYPE (test code = TYPEA) Arterial FIO2 (test code = FIO2A) 40.0 ABG VENT RESP RATE (test code = RRA) 12.0 per min ABG TIDAL VOLUME (test code = TVA) 500.0 mL ABG PEEP (test code = PEEPA) 6.0 cmH2O ABG SITE (test code = SITEA) Lt RADIAL ARTERY MODIFIED ALLENS (test code = MODALL) Yes CHECK PERFORMED HEMATOCRIT (test code = HCT/ABG) 29 % 35-47 L TOTAL HGB (test code = THB) 10.0 gram/dL 11.5-15.5 L HGB O2 SAT (test code = HBOSAT) 97.2 % 94.00-98.00 N CARBOXYHEMOGLOBIN (test code = HOHGBT) 0.3 %totalHg 0.5-1.5 LL Results called to and read back by Kamari 18:53 - 07/07/2019; by Liset METHEMOGLOBIN (test code = METHGB) 0.4 % 0.0-1.50 N O2 CONTENT (test code = O2CT) 13.9 % vol 18.0-22.0 L [id number] 17:21:00* Test Item Value Reference Range Interpretation Comments GLUBED (test code = GLUBED) 224 mg/dL 74-106 H Performed by certified carousel operator at [facility] JASON [id number] 15:29:00 RUN DATE: 07/07/19 [place] [facility] PAGE 1 RUN TIME: 1529 Specimen Inqui ry RUN USER: INTERFACE PATIENT: DAYANA RICHARDSON ACCT #: [id number] [facility]: [facility] U #: [id number] AGE/SX: 59/F ROOM: [facility] RE07/04/19REG DR: Josh Roldan MD : 62 BED: A DIS: STATUS: ADM IN TLOC: SPEC #: [id number] RECD: 07/06/19 STATUS: LATA REQ #: [id number] JUAN: 07/06/[address] [facility] [address]: Kevin Real MD ENTERED: 07/06/19 SP TYPE: FL OTHER OTHR DR: Kevin Santana MD, Roozbeh MD Stein, David A MDORDERED: GROSS COPIES TO: Kevin Veronica MD [address] [facility] [address] [place] [address] Gabriel Norwood MD [address] [place] [address] Kevin Real MD [address] [place] [address] PROCEDURES: GROSS (07/07/19-134) TISSUES: RIGHT LOWER LOBE OF LUNG, NOS - BAL 5 ML MILKY CLINICAL HISTORY COLLECTION DATE: 07/06/19 FINAL DIAGNOSIS Right lower lobe of karla g, bronchoalveolar lavage for cytology: COLUMNAR BRONCHIAL LINING CELLS, ORAL CAVITY TYPE SQUAMOUS EPITHELIUM CELLS, PULMONARY MACROPHAGES, AND SOME NEUTROPHILS MANY CELLS HAVE DEGENERATIVE CHANGES NEGATIVE FO R MALIGNANCY DMW/naomi D 36152, 73661 CONTINUED ON NEXT PAGE RUN DATE: 07/07/19 [place] [facility] PAGE 2 RUN TIME: 1529 Specimen Inquiry RUN USER: INTERFACE SPEC #: [id number] PATIENT: DAYANA RICHARDSON #[id number] (Continued)---- -------- MACROSCOPIC The specimen is designated "right lower BAL". It consists of 5 mL of opaque fluid for concentration and evaluation. A ce ll block is prepared. GROSS PERFORMED AT [facility] [address] [place] [address] [phone] MICROSCOPIC All of the stains, including any con trols performed, stain appropriately. MICROSCOPIC PERFORMED AT [facility] [address] [place] [address] [phone] PERFORMING SITE Diagnosis performed at: [facility], SOHAN [address] [place] [address] ------- ----- Signed SIGNATURE ON FILE Liz Meade MD 07/07 1529 END OF REPORT [id number] 12:37:00* Test Item Value Reference Range Interpretation Comments GLUBED (test code = GLUBED) 198 mg/dL 74-106 H Performed by certified carousel operator at [facility] ARTERIAL BLOOD [id number] 09:07:00* Test Item Value Reference Range Interpretation Comments ARTERIAL BLOOD GAS PH (test code = PHA) 7.30 7.35-7.45 L ARTERIAL BLOOD GAS PCO2 (test code = PCO2A) 63.7 mm Hg 35-45 H ARTERIAL BLOOD GAS PO2 (test code = PO2A) 94.5 mmHg 80-100 N BICARBONATE TOTAL HCO3 (test code = HCO3) 30.4 mmol/L 23.0-27.0 H BASE EXCESS (test code = TONIA) 2.9 mmol/L -3.0-5.0 N ABG O2 SATURATION (test code = SATA) 97.0 % 90.0-98.0 N ABG TYPE (test code = TYPEA) Arterial FIO2 (test code = FIO2A) 35.0 ABG VENT MODE (test code = MODEA) evap ABG VENT RESP RATE (test code = RRA) 16.0 per min ABG TIDAL VOLUME (test code = TVA) 400.0 mL ABG PEEP (test code = PEEPA) 6.0 cmH2O ABG SITE (test code = SITEA) Rt BRACHIAL ARTERY evap vt 400, epap 6, MAX P 22, MIN P 10, RATE 16 MODIFIED ALLENS (test code = MODALL) Unable CHECK PERFORMED HEMATOCRIT (test code = HCT/ABG) 29 % 35-47 L TOTAL HGB (test code = THB) 9.8 gram/dL 11.5-15.5 L HGB O2 SAT (test code = HBOSAT) 96.5 % 94.00-98.00 N CARBOXYHEMOGLOBIN (test code = HOHGBT) 0.3 %totalHg 0.5-1.5 LL Results called to and read back by juan a 09:06 - 07/07/2019; by tn METHEMOGLOBIN (test code = METHGB) 0.2 % 0.0-1.50 N O2 CONTENT (test code = O2CT) 13.4 % vol 18.0-22.0 L - XR CHEST 1 [id number] 08:51:00 FAX: Justo Kaplan [place]: B St: ADM FAX: Josh Roldan MD [phone] FAX: Kevin Bass MD [phone] Name: DAYANA RICHARDSON [facility] : 1960 Age/S: 59/F [address] [facility] Unit #: [id number] Loc: V.3027 [place] [address] Phys: Justo Kaplan Acct: [id number] Dis Date: Status: ADM IN ONE #: [phone] Exam Date: 07/07/2019 0825 FAX #: [phone] Reason: COPD EXAMS: CPT CODE: [id number] XR CHEST 1 V 23626 HISTORY: COPD. COMPARISON: Previous day. Location: [facility]. Scarring with patchy infiltrate interstitial infiltrates bilaterally w ith basal predominance. Hyperinflation. Mild bullous changes. Mild cardiom egaly. IMPRESSION: Patchy bilateral interstiti al infiltrates with basal predominance. at 0851 Reported and signed by: Telly Arguello M.D. CC: Justo Kaplan; Hilton Roldan MD; Kevin Veronica MD Technologist: CAMERON BOONE JR Trnscrd Date/Time/By: 07/07/2019 (0851) : By: [email or web address] Orig Print D/T: S: 07/07/2019 (9727) PAGE 1 Signed Report [id number] 08:47:00* Test Item Value Reference Range Interpretation Comments GLUBED (test code = GLUBED) 157 mg/dL 74-106 H Performed by certified carousel operator at [facility] BRONCH LAVAGE FLD CELL [id number] 08:44:00* Test Item Value Reference Range Interpretation Comments FLUID SOURCE (test code = SOURCEFL) BRONCHIAL LAVAGE FLUID COLOR (test code = COLFL) MILKY COLORLESS FLUID APPEARANCE (test code = APPFL) CLOUDY FLUID WBC (test code = WBCFL) 213 per mm3 0-150 H QC performed - Cell count on both sides of chamber agreeswithin 20% ? Y FLUID RBC (test code = RBCFL) 63 per mm3 0-50 H REVIEWED BY (test code = REVIEW) PATHOLOGIST REVIEWED WHITE BLOODCELL COUNT CANNOT BE RELATIVELY PERFORMED DUE TODEGENERATED CHANGES IN THE CELLS Reviewed by Dr Liz Meade CBC W/AUTO [id number] 06:57:00* Test Item Value Reference Range Interpretation Comments WHITE BLOOD CELL (test code = WBC) 13.5 K/mm3 4.5-12.5 H RED BLOOD CELL (test code = RBC) 2.91 mill/mm3 3.7-5.2 L HEMOGLOBIN (test code = HGB) 8.5 gram/dL 11.5-15.5 L HEMATOCRIT (test code = HCT) 28.8 % 36.0-46.0 L MEAN CELL VOLUME (test code = MCV) 99.0 fL 80-98 H MEAN CELL HGB (test code = MCH) 29.2 picogram 27.0-33.0 N MEAN CELL HGB CONCETRATION (test code = MCHC) 29.5 gram/dL 33.0-36. 0 L RED CELL DISTRIBUTION WIDTH (test code = RDW) 14.4 % 11.6-16. 2 N RED CELL DISTRIBUTION WIDTH SD (test code = RDW-SD) 52.5 fL 37 .0-51.0 H PLATELET COUNT (test code = PLT) 282 K/mm3 150-450 N MEAN PLATELET VOLUME (test code = MPV) 12.7 fL 6.7-11.0 H NEUTROPHIL % (test code = NT%) 88.6 % 39.0-69.0 H IMMATURE GRANULOCYTE % (test code = IG%) 2.4 % 0.0-5.0 N LYMPHOCYTE % (test code = LY%) 4.2 % 25.0-55.0 L MONOCYTE % (test code = MO%) 4.4 % 0.0-10.0 N EOSINOPHIL % (test code = EO%) 0.1 % 0.0-5.0 N BASOPHIL % (test code = BA%) 0.3 % 0.0-1.0 N NUCLEATED RBC % (test code = NRBC%) 0.0 % 0-0 N NEUTROPHIL # (test code = NT#) 11.93 K/mm3 1.8-7.7 H IMMATURE GRANULOCYTE # (test code = IG#) 0.33 x10 3/uL 0-0.03 H LYMPHOCYTE # (test code = LY#) 0.57 K/mm3 1.0-5.0 L MONOCYTE # (test code = MO#) 0.59 K/mm3 0-0.8 N EOSINOPHIL # (test code = EO#) 0.01 K/mm3 0.0-0.5 N BASOPHIL # (test code = BA#) 0.04 K/mm3 0.0-0.2 N NUCLEATED RBC # (test code = NRBC#) 0.00 K/mm3 0.0-0.1 N MANUAL DIFF REQUIRED (test code = MDIFF) NO, ONLY SCAN NEEDED DIFFERENTIAL [id number] 06:57:00* Test Item Value Reference Range Interpretation Comments STAIN ACCEPTABILITY (test code = STN ACCEPTABLE) STAIN ACCEPTABLE HYPOCHROMIA (test code = HYPO) 1+ MACROCYTOSIS (test code = MACR) 1+ PLATELET ESTIMATE (test code = PLTEST) ADEQUATE PLATELET MORPHOLOGY (test code = PLTMORPH) NORMAL COMPREHENSIVE METABOLIC [id number] 06:44:00* Test Item Value Reference Range Interpretation Comments SODIUM (test code = NA) 141 mmol/L 136-145 N POTASSIUM (test code = K) 4.7 mmol/L 3.5-5.1 N CHLORIDE (test code = CL) 105.0 mmol/L 98-107 N CARBON DIOXIDE (test code = CO2) 32.0 mmol/L 21-32 N ANION GAP (test code = GAP) 8.7 10-20 L GLUCOSE (test code = GLU) 190 mg/dL 74-106 H BLOOD UREA NITROGEN (test code = BUN) 19 mg/dL 7-18 H GLOMERULAR FILTRATION RATE (test code = GFR) > 60 mL/min >=60 Estimated GFR by using Modified MDRD formula.Chronic kidney disease is defined as either kidney damageor GFR <60 mL/min/1.73 m2 for >3 months. CREATININE (test code = CREAT) 0.80 mg/dL 0.55-1.02 N Note change in reference range due to change in reagent. BUN/CREATININE RATIO (test code = BUN/CREA) 24.6 10-20 H TOTAL PROTEIN (test code = PROT) 7.2 gram/dL 6.4-8.2 N ALBUMIN (test code = ALB) 2.6 g/dL 3.4-5.0 L GLOBULIN (test code = GLOB) 4.6 gram/dL 2.7-4.2 H ALBUMIN/GLOBULIN RATIO (test code = A/G) 0.6 0.75-1.50 L CALCIUM (test code = CA) 8.8 mg/dL 8.5-10.1 N BILIRUBIN TOTAL (test code = BILT) 0.10 mg/dL 0.0-1.0 N SGOT/AST (test code = AST) 11 IUnit/L 15-37 L SGPT/ALT (test code = ALT) 12 IUnit/L 12-78 N ALKALINE PHOSPHATASE TOTAL (test code = ALKP) 113 IUnit/L 45-117 N Note change in reference range due to change in reagent. [id number] 06:44:00* Test Item Value Reference Range Interpretation Comments PHOSPHORUS (test code = PHOS) 2.7 mg/dL 2.5-4.9 N [id number] 06:44:00* Test Item Value Reference Range Interpretation Comments MAGNESIUM (test code = MAG) 1.7 mg/dL 1.8-2.4 L CALCIUM [id number] 06:44:00* Test Item Value Reference Range Interpretation Comments CALCIUM IONIZED (test code = DINAH) 1.27 mmol/L 1.12-1.32 N COMPREHENSIVE METABOLIC [id number] 06:43:00* Test Item Value Reference Range Interpretation Comments SODIUM (test code = NA) 141 mmol/L 136-145 N POTASSIUM (test code = K) 4.7 mmol/L 3.5-5.1 N CHLORIDE (test code = CL) 105.0 mmol/L 98-107 N CARBON DIOXIDE (test code = CO2) mmol/L 21-32 ANION GAP (test code = GAP) 10-20 GLUCOSE (test code = GLU) mg/dL 74-106 BLOOD UREA NITROGEN (test code = BUN) mg/dL 7-18 GLOMERULAR FILTRATION RATE (test code = GFR) mL/min >=60 CREATININE (test code = CREAT) mg/dL 0.55-1.02 BUN/CREATININE RATIO (test code = BUN/CREA) 10-20 TOTAL PROTEIN (test code = PROT) gram/dL 6.4-8.2 ALBUMIN (test code = ALB) g/dL 3.4-5.0 GLOBULIN (test code = GLOB) gram/dL 2.7-4.2 ALBUMIN/GLOBULIN RATIO (test code = A/G) 0.75-1.50 CALCIUM (test code = CA) mg/dL 8.5-10.1 BILIRUBIN TOTAL (test code = BILT) mg/dL 0.0-1.0 SGOT/AST (test code = AST) IUnit/L 15-37 SGPT/ALT (test code = ALT) IUnit/L 12-78 ALKALINE PHOSPHATASE TOTAL (test code = ALKP) IUnit/L 45-117 [id number] 06:43:00* Test Item Value Reference Range Interpretation Comments PHOSPHORUS (test code = PHOS) mg/dL 2.5-4.9 [id number] 06:43:00* Test Item Value Reference Range Interpretation Comments MAGNESIUM (test code = MAG) mg/dL 1.8-2.4 CALCIUM [id number] 06:43:00* Test Item Value Reference Range Interpretation Comments CALCIUM IONIZED (test code = DINAH) 1.27 mmol/L 1.12-1.32 N COMPREHENSIVE METABOLIC [id number] 06:34:00* Test Item Value Reference Range Interpretation Comments SODIUM (test code = NA) 141 mmol/L 136-145 N POTASSIUM (test code = K) 4.7 mmol/L 3.5-5.1 N CHLORIDE (test code = CL) 105.0 mmol/L 98-107 N CARBON DIOXIDE (test code = CO2) mmol/L 21-32 ANION GAP (test code = GAP) 10-20 GLUCOSE (test code = GLU) mg/dL 74-106 BLOOD UREA NITROGEN (test code = BUN) mg/dL 7-18 GLOMERULAR FILTRATION RATE (test code = GFR) mL/min >=60 CREATININE (test code = CREAT) mg/dL 0.55-1.02 BUN/CREATININE RATIO (test code = BUN/CREA) 10-20 TOTAL PROTEIN (test code = PROT) gram/dL 6.4-8.2 ALBUMIN (test code = ALB) g/dL 3.4-5.0 GLOBULIN (test code = GLOB) gram/dL 2.7-4.2 ALBUMIN/GLOBULIN RATIO (test code = A/G) 0.75-1.50 CALCIUM (test code = CA) mg/dL 8.5-10.1 BILIRUBIN TOTAL (test code = BILT) mg/dL 0.0-1.0 SGOT/AST (test code = AST) IUnit/L 15-37 SGPT/ALT (test code = ALT) IUnit/L 12-78 ALKALINE PHOSPHATASE TOTAL (test code = ALKP) IUnit/L 45-117 [id number] 06:34:00* Test Item Value Reference Range Interpretation Comments PHOSPHORUS (test code = PHOS) mg/dL 2.5-4.9 [id number] 06:34:00* Test Item Value Reference Range Interpretation Comments MAGNESIUM (test code = MAG) mg/dL 1.8-2.4 CALCIUM [id number] 06:34:00* Test Item Value Reference Range Interpretation Comments CALCIUM IONIZED (test code = DINAH) mmol/L 1.12-1.32 CBC W/AUTO [id number] 06:20:00* Test Item Value Reference Range Interpretation Comments WHITE BLOOD CELL (test code = WBC) 13.5 K/mm3 4.5-12.5 H RED BLOOD CELL (test code = RBC) 2.91 mill/mm3 3.7-5.2 L HEMOGLOBIN (test code = HGB) 8.5 gram/dL 11.5-15.5 L HEMATOCRIT (test code = HCT) 28.8 % 36.0-46.0 L MEAN CELL VOLUME (test code = MCV) 99.0 fL 80-98 H MEAN CELL HGB (test code = MCH) 29.2 picogram 27.0-33.0 N MEAN CELL HGB CONCETRATION (test code = MCHC) 29.5 gram/dL 33.0-36. 0 L RED CELL DISTRIBUTION WIDTH (test code = RDW) 14.4 % 11.6-16. 2 N RED CELL DISTRIBUTION WIDTH SD (test code = RDW-SD) 52.5 fL 37 .0-51.0 H PLATELET COUNT (test code = PLT) 282 K/mm3 150-450 N MEAN PLATELET VOLUME (test code = MPV) 12.7 fL 6.7-11.0 H NEUTROPHIL % (test code = NT%) 88.6 % 39.0-69.0 H IMMATURE GRANULOCYTE % (test code = IG%) 2.4 % 0.0-5.0 N LYMPHOCYTE % (test code = LY%) 4.2 % 25.0-55.0 L MONOCYTE % (test code = MO%) 4.4 % 0.0-10.0 N EOSINOPHIL % (test code = EO%) 0.1 % 0.0-5.0 N BASOPHIL % (test code = BA%) 0.3 % 0.0-1.0 N NUCLEATED RBC % (test code = NRBC%) 0.0 % 0-0 N NEUTROPHIL # (test code = NT#) 11.93 K/mm3 1.8-7.7 H IMMATURE GRANULOCYTE # (test code = IG#) 0.33 x10 3/uL 0-0.03 H LYMPHOCYTE # (test code = LY#) 0.57 K/mm3 1.0-5.0 L MONOCYTE # (test code = MO#) 0.59 K/mm3 0-0.8 N EOSINOPHIL # (test code = EO#) 0.01 K/mm3 0.0-0.5 N BASOPHIL # (test code = BA#) 0.04 K/mm3 0.0-0.2 N NUCLEATED RBC # (test code = NRBC#) 0.00 K/mm3 0.0-0.1 N MANUAL DIFF REQUIRED (test code = MDIFF) NO, ONLY SCAN NEEDED DIFFERENTIAL [id number] 06:20:00* Test Item Value Reference Range Interpretation Comments STAIN ACCEPTABILITY (test code = STN ACCEPTABLE) CABOT RINGS (test code = CAB) MORPHOLOGY COMMENT (test code = MOC) PLATELET ESTIMATE (test code = PLTEST) PLATELET MORPHOLOGY (test code = PLTMORPH) CBC W/AUTO [id number] 06:20:00* Test Item Value Reference Range Interpretation Comments WHITE BLOOD CELL (test code = WBC) 13.5 K/mm3 4.5-12.5 H RED BLOOD CELL (test code = RBC) 2.91 mill/mm3 3.7-5.2 L HEMOGLOBIN (test code = HGB) 8.5 gram/dL 11.5-15.5 L HEMATOCRIT (test code = HCT) 28.8 % 36.0-46.0 L MEAN CELL VOLUME (test code = MCV) 99.0 fL 80-98 H MEAN CELL HGB (test code = MCH) 29.2 picogram 27.0-33.0 N MEAN CELL HGB CONCETRATION (test code = MCHC) 29.5 gram/dL 33.0-36. 0 L RED CELL DISTRIBUTION WIDTH (test code = RDW) 14.4 % 11.6-16. 2 N RED CELL DISTRIBUTION WIDTH SD (test code = RDW-SD) 52.5 fL 37 .0-51.0 H PLATELET COUNT (test code = PLT) 282 K/mm3 150-450 N MEAN PLATELET VOLUME (test code = MPV) 12.7 fL 6.7-11.0 H NEUTROPHIL % (test code = NT%) 88.6 % 39.0-69.0 H IMMATURE GRANULOCYTE % (test code = IG%) 2.4 % 0.0-5.0 N LYMPHOCYTE % (test code = LY%) 4.2 % 25.0-55.0 L MONOCYTE % (test code = MO%) 4.4 % 0.0-10.0 N EOSINOPHIL % (test code = EO%) 0.1 % 0.0-5.0 N BASOPHIL % (test code = BA%) 0.3 % 0.0-1.0 N NUCLEATED RBC % (test code = NRBC%) 0.0 % 0-0 N NEUTROPHIL # (test code = NT#) 11.93 K/mm3 1.8-7.7 H IMMATURE GRANULOCYTE # (test code = IG#) 0.33 x10 3/uL 0-0.03 H LYMPHOCYTE # (test code = LY#) 0.57 K/mm3 1.0-5.0 L MONOCYTE # (test code = MO#) 0.59 K/mm3 0-0.8 N EOSINOPHIL # (test code = EO#) 0.01 K/mm3 0.0-0.5 N BASOPHIL # (test code = BA#) 0.04 K/mm3 0.0-0.2 N NUCLEATED RBC # (test code = NRBC#) 0.00 K/mm3 0.0-0.1 N MANUAL DIFF REQUIRED (test code = MDIFF) NO, ONLY SCAN NEEDED DIFFERENTIAL [id number] 06:20:00* Test Item Value Reference Range Interpretation Comments STAIN ACCEPTABILITY (test code = STN ACCEPTABLE) CABOT RINGS (test code = CAB) MORPHOLOGY COMMENT (test code = MOC) PLATELET ESTIMATE (test code = PLTEST) PLATELET MORPHOLOGY (test code = PLTMORPH) CBC W/AUTO [id number] 06:20:00* Test Item Value Reference Range Interpretation Comments WHITE BLOOD CELL (test code = WBC) 13.5 K/mm3 4.5-12.5 H RED BLOOD CELL (test code = RBC) 2.91 mill/mm3 3.7-5.2 L HEMOGLOBIN (test code = HGB) 8.5 gram/dL 11.5-15.5 L HEMATOCRIT (test code = HCT) 28.8 % 36.0-46.0 L MEAN CELL VOLUME (test code = MCV) 99.0 fL 80-98 H MEAN CELL HGB (test code = MCH) 29.2 picogram 27.0-33.0 N MEAN CELL HGB CONCETRATION (test code = MCHC) 29.5 gram/dL 33.0-36. 0 L RED CELL DISTRIBUTION WIDTH (test code = RDW) 14.4 % 11.6-16. 2 N RED CELL DISTRIBUTION WIDTH SD (test code = RDW-SD) 52.5 fL 37 .0-51.0 H PLATELET COUNT (test code = PLT) 282 K/mm3 150-450 N MEAN PLATELET VOLUME (test code = MPV) 12.7 fL 6.7-11.0 H NEUTROPHIL % (test code = NT%) 88.6 % 39.0-69.0 H IMMATURE GRANULOCYTE % (test code = IG%) 2.4 % 0.0-5.0 N LYMPHOCYTE % (test code = LY%) 4.2 % 25.0-55.0 L MONOCYTE % (test code = MO%) 4.4 % 0.0-10.0 N EOSINOPHIL % (test code = EO%) 0.1 % 0.0-5.0 N BASOPHIL % (test code = BA%) 0.3 % 0.0-1.0 N NUCLEATED RBC % (test code = NRBC%) 0.0 % 0-0 N NEUTROPHIL # (test code = NT#) 11.93 K/mm3 1.8-7.7 H IMMATURE GRANULOCYTE # (test code = IG#) 0.33 x10 3/uL 0-0.03 H LYMPHOCYTE # (test code = LY#) 0.57 K/mm3 1.0-5.0 L MONOCYTE # (test code = MO#) 0.59 K/mm3 0-0.8 N EOSINOPHIL # (test code = EO#) 0.01 K/mm3 0.0-0.5 N BASOPHIL # (test code = BA#) 0.04 K/mm3 0.0-0.2 N NUCLEATED RBC # (test code = NRBC#) 0.00 K/mm3 0.0-0.1 N MANUAL DIFF REQUIRED (test code = MDIFF) NO, ONLY SCAN NEEDED DIFFERENTIAL [id number] 06:20:00* Test Item Value Reference Range Interpretation Comments STAIN ACCEPTABILITY (test code = STN ACCEPTABLE) MORPHOLOGY COMMENT (test code = MOC) PLATELET ESTIMATE (test code = PLTEST) PLATELET MORPHOLOGY (test code = PLTMORPH) CBC W/AUTO [id number] 06:20:00* Test Item Value Reference Range Interpretation Comments WHITE BLOOD CELL (test code = WBC) 13.5 K/mm3 4.5-12.5 H RED BLOOD CELL (test code = RBC) 2.91 mill/mm3 3.7-5.2 L HEMOGLOBIN (test code = HGB) 8.5 gram/dL 11.5-15.5 L HEMATOCRIT (test code = HCT) 28.8 % 36.0-46.0 L MEAN CELL VOLUME (test code = MCV) 99.0 fL 80-98 H MEAN CELL HGB (test code = MCH) 29.2 picogram 27.0-33.0 N MEAN CELL HGB CONCETRATION (test code = MCHC) 29.5 gram/dL 33.0-36. 0 L RED CELL DISTRIBUTION WIDTH (test code = RDW) 14.4 % 11.6-16. 2 N RED CELL DISTRIBUTION WIDTH SD (test code = RDW-SD) 52.5 fL 37 .0-51.0 H PLATELET COUNT (test code = PLT) 282 K/mm3 150-450 N MEAN PLATELET VOLUME (test code = MPV) 12.7 fL 6.7-11.0 H NEUTROPHIL % (test code = NT%) 88.6 % 39.0-69.0 H IMMATURE GRANULOCYTE % (test code = IG%) 2.4 % 0.0-5.0 N LYMPHOCYTE % (test code = LY%) 4.2 % 25.0-55.0 L MONOCYTE % (test code = MO%) 4.4 % 0.0-10.0 N EOSINOPHIL % (test code = EO%) 0.1 % 0.0-5.0 N BASOPHIL % (test code = BA%) 0.3 % 0.0-1.0 N NUCLEATED RBC % (test code = NRBC%) 0.0 % 0-0 N NEUTROPHIL # (test code = NT#) 11.93 K/mm3 1.8-7.7 H IMMATURE GRANULOCYTE # (test code = IG#) 0.33 x10 3/uL 0-0.03 H LYMPHOCYTE # (test code = LY#) 0.57 K/mm3 1.0-5.0 L MONOCYTE # (test code = MO#) 0.59 K/mm3 0-0.8 N EOSINOPHIL # (test code = EO#) 0.01 K/mm3 0.0-0.5 N BASOPHIL # (test code = BA#) 0.04 K/mm3 0.0-0.2 N NUCLEATED RBC # (test code = NRBC#) 0.00 K/mm3 0.0-0.1 N MANUAL DIFF REQUIRED (test code = MDIFF) NO, ONLY SCAN NEEDED DIFFERENTIAL [id number] 06:20:00* Test Item Value Reference Range Interpretation Comments STAIN ACCEPTABILITY (test code = STN ACCEPTABLE) CABOT RINGS (test code = CAB) MORPHOLOGY COMMENT (test code = MOC) PLATELET ESTIMATE (test code = PLTEST) PLATELET MORPHOLOGY (test code = PLTMORPH) [id number] 05:49:00* Test Item Value Reference Range Interpretation Comments GLUBED (test code = GLUBED) 176 mg/dL 74-106 H Performed by certified carousel operator at [facility] [id number] 23:31:00* Test Item Value Reference Range Interpretation Comments GLUBED (test code = GLUBED) 271 mg/dL 74-106 H Performed by certified carousel operator at [facility] [id number] 23:31:00* Test Item Value Reference Range Interpretation Comments GLUBED (test code = GLUBED) 259 mg/dL 74-106 H Performed by certified carousel operator at [facility] [id number] 20:31:00* Test Item Value Reference Range Interpretation Comments GLUBED (test code = GLUBED) 222 mg/dL 74-106 H Performed by certified carousel operator at [facility] BRONCH LAVAGE FLD CELL [id number] 17:12:00* Test Item Value Reference Range Interpretation Comments FLUID SOURCE (test code = SOURCEFL) BRONCHIAL LAVAGE FLUID COLOR (test code = COLFL) MILKY COLORLESS FLUID APPEARANCE (test code = APPFL) CLOUDY FLUID WBC (test code = WBCFL) 213 per mm3 0-150 H QC performed - Cell count on both sides of chamber agreeswithin 20% ? Y FLUID RBC (test code = RBCFL) 63 per mm3 0-50 H REVIEWED BY (test code = REVIEW) PATHOLOGIST [id number] 11:12:00* Test Item Value Reference Range Interpretation Comments GLUBED (test code = GLUBED) 238 mg/dL 74-106 H Performed by certified carousel operator at [facility] [id number] 08:19:00* Test Item Value Reference Range Interpretation Comments GLUBED (test code = GLUBED) 262 mg/dL 74-106 H Performed by certified carousel operator at [facility] - XR CHEST 1 [id number] 08:12:00 FAX: Justo Kaplan [place]: B St: ADM FAX: Josh Roldan MD [phone] FAX: Y Kevin Veronica MD [phone] Name: DAYANA RICHARDSON [facility] : 1960 Age/S: 59/F [address] [facility] Unit #: [id number] Loc: V.[address] [place] [address] Phys: Justo Kaplan Acct: [id number] Dis Date: Status: ADM IN [facility] #: [phone] Exam Date: 07/06/2019814 FAX #: [phone] Reason: COPD EXAMS: CPT CODE: [id number] XR CHEST 1 V 06665 HISTORY: COPD. COMPARISON: July 05, 2019. Location: [facility]. No acute infiltrates, effusion or congestion is noted. Hyperinflation and scarring with mild cardiomegaly. IMPRESSION: No acute infiltrates, effusion or congestion. Hyperinflation and scarring. Electronically Signed by Margaret Arguello on 9 at 0812 Reported and signed by: Telly Arguello M.D. CC: Justo Kaplan; Josh Roldan MD; Kevin Veronica MD Technologist: RT AV([place]) Trnscrd [place]der te/Time/By: 07/06/2019 (0812) : By: [email or web address] Orig Print D/T: S: 07/06 (0816) PAGE 1 Signed Report COMPREHENSIVE METABOLIC [id number] 05:52:00 * Test Item Value Reference Range Interpretation Comments SODIUM (test code = NA) 141 mmol/L 136-145 N POTASSIUM (test code = K) 4.5 mmol/L 3.5-5.1 N CHLORIDE (test code = CL) 104.0 mmol/L 98-107 N CARBON DIOXIDE (test code = CO2) 32.0 mmol/L 21-32 N ANION GAP (test code = GAP) 9.5 10-20 L GLUCOSE (test code = GLU) 290 mg/dL 74-106 H BLOOD UREA NITROGEN (test code = BUN) 25 mg/dL 7-18 H GLOMERULAR FILTRATION RATE (test code = GFR) > 60 mL/min >=60 Estimated GFR by using Modified MDRD formula.Chronic kidney disease is defined as either kidney damageor GFR <60 mL/min/1.73 m2 for >3 months. CREATININE (test code = CREAT) 0.90 mg/dL 0.55-1.02 N Note change in reference range due to change in reagent. BUN/CREATININE RATIO (test code = BUN/CREA) 29.1 10-20 H TOTAL PROTEIN (test code = PROT) 6.5 gram/dL 6.4-8.2 N ALBUMIN (test code = ALB) 2.4 g/dL 3.4-5.0 L GLOBULIN (test code = GLOB) 4.1 gram/dL 2.7-4.2 N ALBUMIN/GLOBULIN RATIO (test code = A/G) 0.6 0.75-1.50 L CALCIUM (test code = CA) 8.7 mg/dL 8.5-10.1 N BILIRUBIN TOTAL (test code = BILT) 0.20 mg/dL 0.0-1.0 N SGOT/AST (test code = AST) 7 IUnit/L 15-37 L SGPT/ALT (test code = ALT) 10 IUnit/L 12-78 L ALKALINE PHOSPHATASE TOTAL (test code = ALKP) 102 IUnit/L 45-117 N Note change in reference range due to change in reagent. [id number] 05:52:00* Test Item Value Reference Range Interpretation Comments PHOSPHORUS (test code = PHOS) 3.4 mg/dL 2.5-4.9 N [id number] 05:52:00* Test Item Value Reference Range Interpretation Comments MAGNESIUM (test code = MAG) 1.6 mg/dL 1.8-2.4 L CALCIUM [id number] 05:52:00* Test Item Value Reference Range Interpretation Comments CALCIUM IONIZED (test code = DINAH) 1.28 mmol/L 1.12-1.32 N COMPREHENSIVE METABOLIC [id number] 05:40:00* Test Item Value Reference Range Interpretation Comments SODIUM (test code = NA) 141 mmol/L 136-145 N POTASSIUM (test code = K) 4.5 mmol/L 3.5-5.1 N CHLORIDE (test code = CL) 104.0 mmol/L 98-107 N CARBON DIOXIDE (test code = CO2) mmol/L 21-32 ANION GAP (test code = GAP) 10-20 GLUCOSE (test code = GLU) mg/dL 74-106 BLOOD UREA NITROGEN (test code = BUN) mg/dL 7-18 GLOMERULAR FILTRATION RATE (test code = GFR) mL/min >=60 CREATININE (test code = CREAT) mg/dL 0.55-1.02 BUN/CREATININE RATIO (test code = BUN/CREA) 10-20 TOTAL PROTEIN (test code = PROT) gram/dL 6.4-8.2 ALBUMIN (test code = ALB) g/dL 3.4-5.0 GLOBULIN (test code = GLOB) gram/dL 2.7-4.2 ALBUMIN/GLOBULIN RATIO (test code = A/G) 0.75-1.50 CALCIUM (test code = CA) mg/dL 8.5-10.1 BILIRUBIN TOTAL (test code = BILT) mg/dL 0.0-1.0 SGOT/AST (test code = AST) IUnit/L 15-37 SGPT/ALT (test code = ALT) IUnit/L 12-78 ALKALINE PHOSPHATASE TOTAL (test code = ALKP) IUnit/L 45-117 [id number] 05:40:00* Test Item Value Reference Range Interpretation Comments PHOSPHORUS (test code = PHOS) mg/dL 2.5-4.9 [id number] 05:40:00* Test Item Value Reference Range Interpretation Comments MAGNESIUM (test code = MAG) mg/dL 1.8-2.4 CALCIUM [id number] 05:40:00* Test Item Value Reference Range Interpretation Comments CALCIUM IONIZED (test code = DINAH) 1.28 mmol/L 1.12-1.32 N COMPREHENSIVE METABOLIC [id number] 05:39:00* Test Item Value Reference Range Interpretation Comments SODIUM (test code = NA) 141 mmol/L 136-145 N POTASSIUM (test code = K) 4.5 mmol/L 3.5-5.1 N CHLORIDE (test code = CL) 104.0 mmol/L 98-107 N CARBON DIOXIDE (test code = CO2) mmol/L 21-32 ANION GAP (test code = GAP) 10-20 GLUCOSE (test code = GLU) mg/dL 74-106 BLOOD UREA NITROGEN (test code = BUN) mg/dL 7-18 GLOMERULAR FILTRATION RATE (test code = GFR) mL/min >=60 CREATININE (test code = CREAT) mg/dL 0.55-1.02 BUN/CREATININE RATIO (test code = BUN/CREA) 10-20 TOTAL PROTEIN (test code = PROT) gram/dL 6.4-8.2 ALBUMIN (test code = ALB) g/dL 3.4-5.0 GLOBULIN (test code = GLOB) gram/dL 2.7-4.2 ALBUMIN/GLOBULIN RATIO (test code = A/G) 0.75-1.50 CALCIUM (test code = CA) mg/dL 8.5-10.1 BILIRUBIN TOTAL (test code = BILT) mg/dL 0.0-1.0 SGOT/AST (test code = AST) IUnit/L 15-37 SGPT/ALT (test code = ALT) IUnit/L 12-78 ALKALINE PHOSPHATASE TOTAL (test code = ALKP) IUnit/L 45-117 [id number] 05:39:00* Test Item Value Reference Range Interpretation Comments PHOSPHORUS (test code = PHOS) mg/dL 2.5-4.9 [id number] 05:39:00* Test Item Value Reference Range Interpretation Comments MAGNESIUM (test code = MAG) mg/dL 1.8-2.4 CALCIUM [id number] 05:39:00* Test Item Value Reference Range Interpretation Comments CALCIUM IONIZED (test code = DINAH) mmol/L 1.12-1.32 CBC W/AUTO [id number] 05:14:00* Test Item Value Reference Range Interpretation Comments WHITE BLOOD CELL (test code = WBC) 11.5 K/mm3 4.5-12.5 N RED BLOOD CELL (test code = RBC) 2.51 mill/mm3 3.7-5.2 L HEMOGLOBIN (test code = HGB) 7.3 gram/dL 11.5-15.5 L HEMATOCRIT (test code = HCT) 23.8 % 36.0-46.0 L MEAN CELL VOLUME (test code = MCV) 94.8 fL 80-98 N MEAN CELL HGB (test code = MCH) 29.1 picogram 27.0-33.0 N MEAN CELL HGB CONCETRATION (test code = MCHC) 30.7 gram/dL 33.0-36. 0 L RED CELL DISTRIBUTION WIDTH (test code = RDW) 14.6 % 11.6-16. 2 N RED CELL DISTRIBUTION WIDTH SD (test code = RDW-SD) 50.2 fL 37 .0-51.0 N PLATELET COUNT (test code = PLT) 311 K/mm3 150-450 N MEAN PLATELET VOLUME (test code = MPV) 12.3 fL 6.7-11.0 H NEUTROPHIL % (test code = NT%) 93.2 % 39.0-69.0 H IMMATURE GRANULOCYTE % (test code = IG%) 0.7 % 0.0-5.0 N LYMPHOCYTE % (test code = LY%) 4.2 % 25.0-55.0 L MONOCYTE % (test code = MO%) 1.6 % 0.0-10.0 N EOSINOPHIL % (test code = EO%) 0.0 % 0.0-5.0 N BASOPHIL % (test code = BA%) 0.3 % 0.0-1.0 N NUCLEATED RBC % (test code = NRBC%) 0.0 % 0-0 N NEUTROPHIL # (test code = NT#) 10.73 K/mm3 1.8-7.7 H IMMATURE GRANULOCYTE # (test code = IG#) 0.08 x10 3/uL 0-0.03 H LYMPHOCYTE # (test code = LY#) 0.48 K/mm3 1.0-5.0 L MONOCYTE # (test code = MO#) 0.18 K/mm3 0-0.8 N EOSINOPHIL # (test code = EO#) 0.00 K/mm3 0.0-0.5 N BASOPHIL # (test code = BA#) 0.04 K/mm3 0.0-0.2 N NUCLEATED RBC # (test code = NRBC#) 0.00 K/mm3 0.0-0.1 N MANUAL DIFF REQUIRED (test code = MDIFF) NO [id number] 20:16:00* Test Item Value Reference Range Interpretation Comments GLUBED (test code = GLUBED) 157 mg/dL 74-106 H Performed by certified carousel operator at [facility] [id number] 16:11:00* Test Item Value Reference Range Interpretation Comments GLUBED (test code = GLUBED) 193 mg/dL 74-106 H Performed by certified carousel operator at [facility] [id number] 10:24:00* Test Item Value Reference Range Interpretation Comments GLUBED (test code = GLUBED) 208 mg/dL 74-106 H Performed by certified carousel operator at [facility] - XR CHEST 1 [id number] 06:36:00 FAX: Justo Kaplan [place]: B St: ADM FAX: Josh Roldan MD [phone] FAX: Kevin Bass MD [phone] Name: DAYANA RICHARDSON [facility] : 1960 Age/S: 59/F [address] Unit #: [id number] Loc: V.[address] [address] Phys: Justo Kaplan Acct: [id number] Dis Date: Status: ADM IN ONE #: [phone] Exam Date: 07/05/2019 0519 FAX #: [phone] Reason: COPD EXAMS: CPT CODE: [id number] XR CHEST 1 V 90295 CLINICAL HISTO RY: COPD, respiratory distress TECHNIQUE: AP chest x-ray COMPARISON: Previous day. IMPRESSION: No significant interval change. Patchy bibasilar airspace opacity, greater on the left. No pleural effusion. Normal heart size. Atherosclerotic vas cular calcification of the thoracic aorta. LOCATION: [facility] at 0636 Reported and signed by: Shama Gray D.O. CC: Justo Kaplan; Josh Roldan MD; Kevin Santana MD Technologist: CAMERON BOONE JR; Juliann Weiss Trnscrd Date/Time/By: 07/05/2019 (0636) : By: [email or web address] Orig Print D/ T: S: 07/05/2019 (0684) PAGE 1 Si gned Report COMPREHENSIVE METABOLIC PANEL 2019-07-05 04:03:00* Test Item Value Reference Range Interpretation Comments SODIUM (test code = NA) 141 mmol/L 136-145 N POTASSIUM (test code = K) 4.0 mmol/L 3.5-5.1 N CHLORIDE (test code = CL) 103.0 mmol/L 98-107 N CARBON DIOXIDE (test code = CO2) 28.0 mmol/L 21-32 N ANION GAP (test code = GAP) 14.0 10-20 N GLUCOSE (test code = GLU) 303 mg/dL 74-106 H BLOOD UREA NITROGEN (test code = BUN) 21 mg/dL 7-18 H RESULT VERIFIED BY REPEAT ANALYSIS GLOMERULAR FILTRATION RATE (test code = GFR) > 60 mL/min >=60 Estimated GFR by using Modified MDRD formula.Chronic kidney disease is defined as either kidney damageor GFR <60 mL/min/1.73 m2 for >3 months. CREATININE (test code = CREAT) 0.90 mg/dL 0.55-1.02 N Note change in reference range due to change in reagent. BUN/CREATININE RATIO (test code = BUN/CREA) 23.3 10-20 H TOTAL PROTEIN (test code = PROT) 7.4 gram/dL 6.4-8.2 N ALBUMIN (test code = ALB) 2.5 g/dL 3.4-5.0 L GLOBULIN (test code = GLOB) 4.9 gram/dL 2.7-4.2 H ALBUMIN/GLOBULIN RATIO (test code = A/G) 0.5 0.75-1.50 L CALCIUM (test code = CA) 8.8 mg/dL 8.5-10.1 N BILIRUBIN TOTAL (test code = BILT) 0.20 mg/dL 0.0-1.0 N SGOT/AST (test code = AST) 7 IUnit/L 15-37 L SGPT/ALT (test code = ALT) 12 IUnit/L 12-78 N ALKALINE PHOSPHATASE TOTAL (test code = ALKP) 106 IUnit/L 45-117 N Note change in reference range due to change in reagent. [id number] 04:03:00* Test Item Value Reference Range Interpretation Comments PHOSPHORUS (test code = PHOS) 3.0 mg/dL 2.5-4.9 N [id number] 04:03:00* Test Item Value Reference Range Interpretation Comments MAGNESIUM (test code = MAG) 2.2 mg/dL 1.8-2.4 N CALCIUM [id number] 04:03:00* Test Item Value Reference Range Interpretation Comments CALCIUM IONIZED (test code = DINAH) 1.27 mmol/L 1.12-1.32 N COMPREHENSIVE METABOLIC [id number] 03:43:00* Test Item Value Reference Range Interpretation Comments SODIUM (test code = NA) 141 mmol/L 136-145 N POTASSIUM (test code = K) 4.0 mmol/L 3.5-5.1 N CHLORIDE (test code = CL) 103.0 mmol/L 98-107 N CARBON DIOXIDE (test code = CO2) mmol/L 21-32 ANION GAP (test code = GAP) 10-20 GLUCOSE (test code = GLU) mg/dL 74-106 BLOOD UREA NITROGEN (test code = BUN) mg/dL 7-18 GLOMERULAR FILTRATION RATE (test code = GFR) mL/min >=60 CREATININE (test code = CREAT) mg/dL 0.55-1.02 BUN/CREATININE RATIO (test code = BUN/CREA) 10-20 TOTAL PROTEIN (test code = PROT) gram/dL 6.4-8.2 ALBUMIN (test code = ALB) g/dL 3.4-5.0 GLOBULIN (test code = GLOB) gram/dL 2.7-4.2 ALBUMIN/GLOBULIN RATIO (test code = A/G) 0.75-1.50 CALCIUM (test code = CA) mg/dL 8.5-10.1 BILIRUBIN TOTAL (test code = BILT) mg/dL 0.0-1.0 SGOT/AST (test code = AST) IUnit/L 15-37 SGPT/ALT (test code = ALT) IUnit/L 12-78 ALKALINE PHOSPHATASE TOTAL (test code = ALKP) IUnit/L 45-117 [id number] 03:43:00* Test Item Value Reference Range Interpretation Comments PHOSPHORUS (test code = PHOS) mg/dL 2.5-4.9 [id number] 03:43:00* Test Item Value Reference Range Interpretation Comments MAGNESIUM (test code = MAG) mg/dL 1.8-2.4 CALCIUM [id number] 03:43:00* Test Item Value Reference Range Interpretation Comments CALCIUM IONIZED (test code = DINAH) 1.27 mmol/L 1.12-1.32 N COMPREHENSIVE METABOLIC [id number] 03:39:00* Test Item Value Reference Range Interpretation Comments SODIUM (test code = NA) mmol/L 136-145 POTASSIUM (test code = K) mmol/L 3.5-5.1 CHLORIDE (test code = CL) mmol/L 98-107 CARBON DIOXIDE (test code = CO2) mmol/L 21-32 ANION GAP (test code = GAP) 10-20 GLUCOSE (test code = GLU) mg/dL 74-106 BLOOD UREA NITROGEN (test code = BUN) mg/dL 7-18 GLOMERULAR FILTRATION RATE (test code = GFR) mL/min >=60 CREATININE (test code = CREAT) mg/dL 0.55-1.02 BUN/CREATININE RATIO (test code = BUN/CREA) 10-20 TOTAL PROTEIN (test code = PROT) gram/dL 6.4-8.2 ALBUMIN (test code = ALB) g/dL 3.4-5.0 GLOBULIN (test code = GLOB) gram/dL 2.7-4.2 ALBUMIN/GLOBULIN RATIO (test code = A/G) 0.75-1.50 CALCIUM (test code = CA) mg/dL 8.5-10.1 BILIRUBIN TOTAL (test code = BILT) mg/dL 0.0-1.0 SGOT/AST (test code = AST) IUnit/L 15-37 SGPT/ALT (test code = ALT) IUnit/L 12-78 ALKALINE PHOSPHATASE TOTAL (test code = ALKP) IUnit/L 45-117 [id number] 03:39:00* Test Item Value Reference Range Interpretation Comments PHOSPHORUS (test code = PHOS) mg/dL 2.5-4.9 [id number] 03:39:00* Test Item Value Reference Range Interpretation Comments MAGNESIUM (test code = MAG) mg/dL 1.8-2.4 CALCIUM [id number] 03:39:00* Test Item Value Reference Range Interpretation Comments CALCIUM IONIZED (test code = DINAH) 1.27 mmol/L 1.12-1.32 N CBC W/AUTO [id number] 03:34:00* Test Item Value Reference Range Interpretation Comments WHITE BLOOD CELL (test code = WBC) 7.7 K/mm3 4.5-12.5 N RED BLOOD CELL (test code = RBC) 2.55 mill/mm3 3.7-5.2 L HEMOGLOBIN (test code = HGB) 7.4 gram/dL 11.5-15.5 L HEMATOCRIT (test code = HCT) 23.6 % 36.0-46.0 L MEAN CELL VOLUME (test code = MCV) 92.5 fL 80-98 N MEAN CELL HGB (test code = MCH) 29.0 picogram 27.0-33.0 N MEAN CELL HGB CONCETRATION (test code = MCHC) 31.4 gram/dL 33.0-36. 0 L RED CELL DISTRIBUTION WIDTH (test code = RDW) 14.4 % 11.6-16. 2 N RED CELL DISTRIBUTION WIDTH SD (test code = RDW-SD) 48.8 fL 37 .0-51.0 N PLATELET COUNT (test code = PLT) 305 K/mm3 150-450 N MEAN PLATELET VOLUME (test code = MPV) 12.3 fL 6.7-11.0 H NEUTROPHIL % (test code = NT%) 87.5 % 39.0-69.0 H IMMATURE GRANULOCYTE % (test code = IG%) 0.4 % 0.0-5.0 N LYMPHOCYTE % (test code = LY%) 6.6 % 25.0-55.0 L MONOCYTE % (test code = MO%) 5.2 % 0.0-10.0 N EOSINOPHIL % (test code = EO%) 0.0 % 0.0-5.0 N BASOPHIL % (test code = BA%) 0.3 % 0.0-1.0 N NUCLEATED RBC % (test code = NRBC%) 0.0 % 0-0 N NEUTROPHIL # (test code = NT#) 6.71 K/mm3 1.8-7.7 N IMMATURE GRANULOCYTE # (test code = IG#) 0.03 x10 3/uL 0-0.03 N LYMPHOCYTE # (test code = LY#) 0.51 K/mm3 1.0-5.0 L MONOCYTE # (test code = MO#) 0.40 K/mm3 0-0.8 N EOSINOPHIL # (test code = EO#) 0.00 K/mm3 0.0-0.5 N BASOPHIL # (test code = BA#) 0.02 K/mm3 0.0-0.2 N NUCLEATED RBC # (test code = NRBC#) 0.00 K/mm3 0.0-0.1 N MANUAL DIFF REQUIRED (test code = MDIFF) NO PROTHROMBIN [id number] 20:45:00* Test Item Value Reference Range Interpretation Comments PROTHROMBIN TIME PATIENT (test code = PTP) 14.1 seconds 9.0-14.0 H INTERNATIONAL NORMAL RATIO (test code = INR) 1.2 0.8-1.2 N The therapeutic range for oral anticoagulant therapy formost indications is an international normalized ratio (INR)of between 2.0 and 3.0. The recommended therapeutic INRrange for various clinical situations is listed below: Clinical Situation INR range Pulmonary e mbolism treatment (2.0-3.0)Venous thrombosis treatmentVenous thrombosis prophylaxis (high risk surgery)Prevention of systemic embolism from: Acute myocardial infarction Valvular heart disease Atrial fibrillation Mechanical prosthetic heart valves (2.5-3.5) IS PATIENT ON ANTICOAGULANTS? [id number] 20:44:00* Test Item Value Reference Range Interpretation Comments GLUBED (test code = GLUBED) 360 mg/dL 74-106 H Performed by certified carousel operator at [facility] [id number] 15:53:00* Test Item Value Reference Range Interpretation Comments GLUBED (test code = GLUBED) 334 mg/dL 74-106 H Performed by certified carousel operator at [facility] - CT CHEST W/O [id number] 14:49:00 Name: DAYANA RICHARDSON [facility] : 1960 Age/S: 59 / F [address] [id number] Loc: [place]IO Gomez [id number] Phys: Kevin Real MD Acct: [id number] Dis Date: Status: ADM IN PHONE #: [phone] Exam Date: 07/04/2019 1337 FAX #: [phone] Reason: SOB EXAMS: CPT CODE: [id number] CT CHEST W/O CONTRAST [id number] EXAM: CT of the chest without contrast; INFORMATION: Shortness of breath, respiratory distress; COPD; TECHNIQUE AND FINDINGS: CT dose reduction protocol; 5 mm cuts through the chest without contrast; multiplanar reconstructions. Deterioration compared with a study from June 08, 2019: There has been progression in size and number of previously irregular pat jerson/nodular/infiltrative changes in both lungs. These changes are superimp osed on hyperinflated lungs. No pleural effusions, pneumothorax. The heart is normal in size; no evidence of hilar or mediastinal adenopathy i n: Calcified plaques in the aortic arch. The left coronary artery. IMPRESSION: Progressive patchy/nodular/infiltrative changes in both lungs compared with the recent study from May 2019. The configu ration of these lesions and their rapid large amount favor an inflammato ry process. A neoplastic process is less likely. Locat ion code: [facility] at 5007 Reported and signed by: Clif Laguna M.D. CC: Dangelo Roldan MD; Kevin Veronica MD; Kevin Real MD Technologist:Gabbi Molina,RT(R),CT CTDI: DLP: Trnscb Date/Time: 07/04/2019 (0267) [email or web address] W Orig Print D/T: S: 07/04/2019 (5156) PAGE 1 Signed Report VENOUS BLOOD GAS 2019-07-04 06:09:00* Test Item Value Reference Range Interpretation Comments VENOUS BLOOD GAS PH (test code = PHV) 7.36 7.30-7.40 N VENOUS BLOOD GAS PCO2 (test code = PCO2V) 47.1 mm Hg 39.0-51.0 N VENOUS BLOOD GAS PO2 (test code = PO2V) 47.7 mm Hg 30.0-50.0 N VBG HCO3 (test code = HCO3V) 26.1 mmol/L 17.0-30.0 N VBG BASE EXCESS (test code = TIERA) 0.5 mmol/L -5.0-5.0 N VENOUS BLOOD GAS O2 SAT. (test code = O2SATV) 80 % 94-98 LL VENOUS BLOOD GAS FIO2 (test code = FIO2V) 35.0 VBG VENT MODE (test code = MODEV) BiPAP SHIREEN. BLOOD GAS RESP. RATE (test code = RRV) 12.0 per min VENOUS BLOOD GAS PEEP (test code = PEEPV) 5.0 cmH2O PRESSURE SUPPORT (test code = PSV) 5 cmH2O PT. TEMP (test code = PTEMPVBG) 37.0 Celsius 36.5-37.5 N PT. HGB (test code = PHGBVBG) 8.7 gram/dL 11.5-15.5 L VENOUS BLOOD GAS SITE (test code = SITEV) IVC HEMATOCRIT (test code = HCT/VBG) 26 % 42-52 L HGB O2 SAT (test code = HBOSAT) 78.9 % 94.00-98.00 LL CARBOXYHEMOGLOBIN (test code = HOHGBT) 0.6 %totalHg 0.5-1.5 N METHEMOGLOBIN (test code = METHGB) 0.2 % 0.0-1.50 N VENOUS BLOOD [id number] 04:58:00* Test Item Value Reference Range Interpretation Comments VENOUS BLOOD GAS PH (test code = PHV) 7.29 7.30-7.40 L VENOUS BLOOD GAS PCO2 (test code = PCO2V) 59.8 mm Hg 39.0-51.0 H VENOUS BLOOD GAS PO2 (test code = PO2V) 59.9 mm Hg 30.0-50.0 H VBG HCO3 (test code = HCO3V) 28.1 mmol/L 17.0-30.0 N VBG BASE EXCESS (test code = TIERA) 0.8 mmol/L -5.0-5.0 N VENOUS BLOOD GAS O2 SAT. (test code = O2SATV) 87 % 94-98 L VENOUS BLOOD GAS FIO2 (test code = FIO2V) 40.0 VENOUS BLOOD GAS L/MIN (test code = L/MV) 55.00 L/min VBG VENT MODE (test code = MODEV) Assist Control SHIREEN. BLOOD GAS RESP. RATE (test code = RRV) 25.0 per min VBG TIDAL VOLUME (test code = TVV) 500.0 VENOUS BLOOD GAS PEEP (test code = PEEPV) 10.0 cmH2O PT. TEMP (test code = PTEMPVBG) 37.0 Celsius 36.5-37.5 N PT. HGB (test code = PHGBVBG) 9.7 gram/dL 11.5-15.5 L VENOUS BLOOD GAS SITE (test code = SITEV) AL HEMATOCRIT (test code = HCT/VBG) 29 % 42-52 L HGB O2 SAT (test code = HBOSAT) 86.1 % 94.00-98.00 L CARBOXYHEMOGLOBIN (test code = HOHGBT) 0.4 %totalHg 0.5-1.5 LL Results called to and read back by Rere Tellez 03:10 - 07/04/2019; by Delmi BLACKMAN CUSTOMER LOYALTY REPRESENTATIVE METHEMOGLOBIN (test code = METHGB) 0.2 % 0.0-1.50 N B-TYPE NATRIURETIC [id number] 04:22:00* Test Item Value Reference Range Interpretation Comments B-TYPE NATRIURETIC PEPTIDE (test code = BNP) 256.01 pgram/mL 0-100 H BASIC METABOLIC [id number] 03:49:00* Test Item Value Reference Range Interpretation Comments SODIUM (test code = NA) 139 mmol/L 136-145 N POTASSIUM (test code = K) 3.7 mmol/L 3.5-5.1 N CHLORIDE (test code = CL) 100.0 mmol/L 98-107 N CARBON DIOXIDE (test code = CO2) 33.0 mmol/L 21-32 H ANION GAP (test code = GAP) 9.7 10-20 L GLUCOSE (test code = GLU) 225 mg/dL 74-106 H BLOOD UREA NITROGEN (test code = BUN) 11 mg/dL 7-18 N GLOMERULAR FILTRATION RATE (test code = GFR) > 60 mL/min >=60 Estimated GFR by using Modified MDRD formula.Chronic kidney disease is defined as either kidney damageor GFR <60 mL/min/1.73 m2 for >3 months. CREATININE (test code = CREAT) 0.90 mg/dL 0.55-1.02 N Note change in reference range due to change in reagent. BUN/CREATININE RATIO (test code = BUN/CREA) 12.0 10-20 N CALCIUM (test code = CA) 8.8 mg/dL 8.5-10.1 N [id number] 03:49:00* Test Item Value Reference Range Interpretation Comments MAGNESIUM (test code = MAG) 1.6 mg/dL 1.8-2.4 L [id number] 03:49:00* Test Item Value Reference Range Interpretation Comments TROPONIN-I (test code = TROPI) <0.015 ng/mL 0-0.045 N BASIC METABOLIC [id number] 03:38:00* Test Item Value Reference Range Interpretation Comments SODIUM (test code = NA) 139 mmol/L 136-145 N POTASSIUM (test code = K) 3.7 mmol/L 3.5-5.1 N CHLORIDE (test code = CL) 100.0 mmol/L 98-107 N CARBON DIOXIDE (test code = CO2) mmol/L 21-32 ANION GAP (test code = GAP) 10-20 GLUCOSE (test code = GLU) mg/dL 74-106 BLOOD UREA NITROGEN (test code = BUN) mg/dL 7-18 GLOMERULAR FILTRATION RATE (test code = GFR) mL/min >=60 CREATININE (test code = CREAT) mg/dL 0.55-1.02 BUN/CREATININE RATIO (test code = BUN/CREA) 10-20 CALCIUM (test code = CA) mg/dL 8.5-10.1 [id number] 03:38:00* Test Item Value Reference Range Interpretation Comments MAGNESIUM (test code = MAG) mg/dL 1.8-2.4 [id number] 03:38:00* Test Item Value Reference Range Interpretation Comments TROPONIN-I (test code = TROPI) ng/mL 0-0.045 - XR CHEST 1 [id number] 03:33:00 FAX: Kevin Bass MD [phone] [place]: St: REG FAX: Lazaro Terrazas MD Name: DAYANA RICHARDSON [facility] : 1960 Age/S: 59/F [address] Unit #: [id number] Loc: [place]IO [place] [address] Phys: Lazaro Terrazas MD Acct: [id number] Dis Date: Status: REG ER PHONE #: [phone] Exam Date: 07/04/2019326 FAX #: [phone] Reason: Shortness of Breath EXAMS: CPT CODE: [id number] XR CHEST 1 V 54701 Exam: AP chest Location: H 12 History: Shortness of Breath Comparison: 06/16/2019. Findings: The lungs are clear. No infiltrate or effusion is seen. The pulmonary vasculature is normal. The heart size is enlarged. Atherosclerosis involves the aorta. The mediastinal silhouette is unremarkable. The bony t horax is intact with degenerative changes noted. Impression: No acute disease. at 0333 Reported and signed by: Paul Urbina M.D. CC: Kevin Veronica MD; Lazaro Terrazas MD Technologist: Juliann Weiss Trnscrd Chris e/Time/By: 07/04/2019 (033) : By: Alli Orig Print D/T: S: 2018 (0331) PAGE 1 Signed Report CBC W/O [id number] 03:21:00* Test Item Value Reference Range Interpretation Comments WHITE BLOOD CELL (test code = WBC) 11.1 K/mm3 4.5-12.5 N RED BLOOD CELL (test code = RBC) 2.90 mill/mm3 3.7-5.2 L HEMOGLOBIN (test code = HGB) 8.3 gram/dL 11.5-15.5 L HEMATOCRIT (test code = HCT) 26.9 % 36.0-46.0 L MEAN CELL VOLUME (test code = MCV) 92.8 fL 80-98 N MEAN CELL HGB (test code = MCH) 28.6 picogram 27.0-33.0 N MEAN CELL HGB CONCETRATION (test code = MCHC) 30.9 gram/dL 33.0-36. 0 L RED CELL DISTRIBUTION WIDTH (test code = RDW) 14.3 % 11.6-16. 2 N PLATELET COUNT (test code = PLT) 324 K/mm3 150-450 N MEAN PLATELET VOLUME (test code = MPV) 12.3 fL 6.7-11.0 H [id number] 12:08:00* Test Item Value Reference Range Interpretation Comments GLUBED (test code = GLUBED) 221 mg/dL 74-106 H Performed by certified carousel operator at [facility] COMPREHENSIVE METABOLIC [id number] 08:27:00* Test Item Value Reference Range Interpretation Comments SODIUM (test code = NA) 144 mmol/L 136-145 N POTASSIUM (test code = K) 3.0 mmol/L 3.5-5.1 L CHLORIDE (test code = CL) 104.0 mmol/L 98-107 N CARBON DIOXIDE (test code = CO2) 35.0 mmol/L 21-32 H ANION GAP (test code = GAP) 8.0 10-20 L GLUCOSE (test code = GLU) 123 mg/dL 74-106 H BLOOD UREA NITROGEN (test code = BUN) 9 mg/dL 7-18 N GLOMERULAR FILTRATION RATE (test code = GFR) > 60 mL/min >=60 Estimated GFR by using Modified MDRD formula.Chronic kidney disease is defined as either kidney damageor GFR <60 mL/min/1.73 m2 for >3 months. CREATININE (test code = CREAT) 0.60 mg/dL 0.55-1.02 N Note change in reference range due to change in reagent. BUN/CREATININE RATIO (test code = BUN/CREA) 14.9 10-20 N TOTAL PROTEIN (test code = PROT) 5.5 gram/dL 6.4-8.2 L ALBUMIN (test code = ALB) 2.1 g/dL 3.4-5.0 L GLOBULIN (test code = GLOB) 3.4 gram/dL 2.7-4.2 N ALBUMIN/GLOBULIN RATIO (test code = A/G) 0.6 0.75-1.50 L CALCIUM (test code = CA) 8.3 mg/dL 8.5-10.1 L BILIRUBIN TOTAL (test code = BILT) 0.20 mg/dL 0.0-1.0 N SGOT/AST (test code = AST) 8 IUnit/L 15-37 L SGPT/ALT (test code = ALT) 8 IUnit/L 12-78 L ALKALINE PHOSPHATASE TOTAL (test code = ALKP) 96 IUnit/L 45-117 N Note change in reference range due to change in reagent. COMPREHENSIVE METABOLIC [id number] 08:21:00* Test Item Value Reference Range Interpretation Comments SODIUM (test code = NA) 144 mmol/L 136-145 N POTASSIUM (test code = K) 3.0 mmol/L 3.5-5.1 L CHLORIDE (test code = CL) 104.0 mmol/L 98-107 N CARBON DIOXIDE (test code = CO2) mmol/L 21-32 ANION GAP (test code = GAP) 10-20 GLUCOSE (test code = GLU) mg/dL 74-106 BLOOD UREA NITROGEN (test code = BUN) mg/dL 7-18 GLOMERULAR FILTRATION RATE (test code = GFR) mL/min >=60 CREATININE (test code = CREAT) mg/dL 0.55-1.02 BUN/CREATININE RATIO (test code = BUN/CREA) 10-20 TOTAL PROTEIN (test code = PROT) gram/dL 6.4-8.2 ALBUMIN (test code = ALB) g/dL 3.4-5.0 GLOBULIN (test code = GLOB) gram/dL 2.7-4.2 ALBUMIN/GLOBULIN RATIO (test code = A/G) 0.75-1.50 CALCIUM (test code = CA) mg/dL 8.5-10.1 BILIRUBIN TOTAL (test code = BILT) mg/dL 0.0-1.0 SGOT/AST (test code = AST) IUnit/L 15-37 SGPT/ALT (test code = ALT) IUnit/L 12-78 ALKALINE PHOSPHATASE TOTAL (test code = ALKP) IUnit/L 45-117 [id number] 07:39:00* Test Item Value Reference Range Interpretation Comments GLUBED (test code = GLUBED) 121 mg/dL 74-106 H Performed by certified carousel operator at [facility] CBC W/AUTO [id number] 07:39:00* Test Item Value Reference Range Interpretation Comments WHITE BLOOD CELL (test code = WBC) 17.2 K/mm3 4.5-12.5 H RED BLOOD CELL (test code = RBC) 2.76 mill/mm3 3.7-5.2 L HEMOGLOBIN (test code = HGB) 8.2 gram/dL 11.5-15.5 L HEMATOCRIT (test code = HCT) 26.6 % 36.0-46.0 L MEAN CELL VOLUME (test code = MCV) 96.4 fL 80-98 N MEAN CELL HGB (test code = MCH) 29.7 picogram 27.0-33.0 N MEAN CELL HGB CONCETRATION (test code = MCHC) 30.8 gram/dL 33.0-36. 0 L RED CELL DISTRIBUTION WIDTH (test code = RDW) 14.3 % 11.6-16. 2 N RED CELL DISTRIBUTION WIDTH SD (test code = RDW-SD) 49.7 fL 37 .0-51.0 N PLATELET COUNT (test code = PLT) 458 K/mm3 150-450 H MEAN PLATELET VOLUME (test code = MPV) 11.7 fL 6.7-11.0 H NEUTROPHIL % (test code = NT%) 66.4 % 39.0-69.0 N IMMATURE GRANULOCYTE % (test code = IG%) 1.8 % 0.0-5.0 N LYMPHOCYTE % (test code = LY%) 20.8 % 25.0-55.0 L MONOCYTE % (test code = MO%) 9.4 % 0.0-10.0 N EOSINOPHIL % (test code = EO%) 1.4 % 0.0-5.0 N BASOPHIL % (test code = BA%) 0.2 % 0.0-1.0 N NUCLEATED RBC % (test code = NRBC%) 0.0 % 0-0 N NEUTROPHIL # (test code = NT#) 11.42 K/mm3 1.8-7.7 H IMMATURE GRANULOCYTE # (test code = IG#) 0.31 x10 3/uL 0-0.03 H LYMPHOCYTE # (test code = LY#) 3.58 K/mm3 1.0-5.0 N MONOCYTE # (test code = MO#) 1.62 K/mm3 0-0.8 H EOSINOPHIL # (test code = EO#) 0.24 K/mm3 0.0-0.5 N BASOPHIL # (test code = BA#) 0.03 K/mm3 0.0-0.2 N NUCLEATED RBC # (test code = NRBC#) 0.00 K/mm3 0.0-0.1 N MANUAL DIFF REQUIRED (test code = MDIFF) NO [id number] 20:44:00* Test Item Value Reference Range Interpretation Comments GLUBED (test code = GLUBED) 141 mg/dL 74-106 H Performed by certified carousel operator at [facility] [id number] 19:12:00* Test Item Value Reference Range Interpretation Comments GLUBED (test code = GLUBED) 190 mg/dL 74-106 H Performed by certified carousel operator at [facility] [id number] 13:36:00* Test Item Value Reference Range Interpretation Comments VANCOMYCIN (test code = VANCO) 13.9 UG/ML 5.0-45.0 N PROCALCITONIN (PCT)2019-06-22 12:57:00* Test Item Value Reference Range Interpretation Comments PROCALCITONIN (PCT) (test code = PROCAL) 0.43 ng/ml Concentration Interpretation (ng/mL) <0.51 Sepsis is not likely. Local bacterial infection is possible. (LOW RISK for progression to Sepsis) 0.51 - 2.00 Sepsis is possible, but other conditions are known to elevate PCT as well. (MODERATE RISK for progression to Sepsis) > 2.00 Sepsis is likely, unless other causes are known. (HIGH RISK for progression to Severe Sepsis or Septic Shock) 10.00 High likelihood of Severe Sepsis or Septic or higher Shock. *Increased PCT levels may not always be related to systemic bacterial infection.*Low PCT levels do not automatically exclude the presence of bacterial infection.*All results should be interpreted taking into account the patients history. [id number] 12:27:00* Test Item Value Reference Range Interpretation Comments GLUBED (test code = GLUBED) 187 mg/dL 74-106 H Performed by certified carousel operator at [facility] CBC W/AUTO [id number] 11:30:00* Test Item Value Reference Range Interpretation Comments WHITE BLOOD CELL (test code = WBC) 22.8 K/mm3 4.5-12.5 H RED BLOOD CELL (test code = RBC) 2.73 mill/mm3 3.7-5.2 L HEMOGLOBIN (test code = HGB) 8.0 gram/dL 11.5-15.5 L HEMATOCRIT (test code = HCT) 25.8 % 36.0-46.0 L MEAN CELL VOLUME (test code = MCV) 94.5 fL 80-98 N MEAN CELL HGB (test code = MCH) 29.3 picogram 27.0-33.0 N MEAN CELL HGB CONCETRATION (test code = MCHC) 31.0 gram/dL 33.0-36. 0 L RED CELL DISTRIBUTION WIDTH (test code = RDW) 13.9 % 11.6-16. 2 N RED CELL DISTRIBUTION WIDTH SD (test code = RDW-SD) 47.5 fL 37 .0-51.0 N PLATELET COUNT (test code = PLT) 487 K/mm3 150-450 H MEAN PLATELET VOLUME (test code = MPV) 11.8 fL 6.7-11.0 H NEUTROPHIL % (test code = NT%) 77.7 % 39.0-69.0 H IMMATURE GRANULOCYTE % (test code = IG%) 1.9 % 0.0-5.0 N LYMPHOCYTE % (test code = LY%) 12.5 % 25.0-55.0 L MONOCYTE % (test code = MO%) 7.0 % 0.0-10.0 N EOSINOPHIL % (test code = EO%) 0.7 % 0.0-5.0 N BASOPHIL % (test code = BA%) 0.2 % 0.0-1.0 N NUCLEATED RBC % (test code = NRBC%) 0.1 % 0-0 H NEUTROPHIL # (test code = NT#) 17.74 K/mm3 1.8-7.7 H IMMATURE GRANULOCYTE # (test code = IG#) 0.43 x10 3/uL 0-0.03 H LYMPHOCYTE # (test code = LY#) 2.85 K/mm3 1.0-5.0 N MONOCYTE # (test code = MO#) 1.60 K/mm3 0-0.8 H EOSINOPHIL # (test code = EO#) 0.17 K/mm3 0.0-0.5 N BASOPHIL # (test code = BA#) 0.04 K/mm3 0.0-0.2 N NUCLEATED RBC # (test code = NRBC#) 0.02 K/mm3 0.0-0.1 N MANUAL DIFF REQUIRED (test code = MDIFF) NO COMPREHENSIVE METABOLIC [id number] 10:58:00* Test Item Value Reference Range Interpretation Comments SODIUM (test code = NA) 143 mmol/L 136-145 N POTASSIUM (test code = K) 3.4 mmol/L 3.5-5.1 L CHLORIDE (test code = CL) 105.0 mmol/L 98-107 N CARBON DIOXIDE (test code = CO2) 32.0 mmol/L 21-32 N ANION GAP (test code = GAP) 9.4 10-20 L GLUCOSE (test code = GLU) 184 mg/dL 74-106 H BLOOD UREA NITROGEN (test code = BUN) 9 mg/dL 7-18 N GLOMERULAR FILTRATION RATE (test code = GFR) > 60 mL/min >=60 Estimated GFR by using Modified MDRD formula.Chronic kidney disease is defined as either kidney damageor GFR <60 mL/min/1.73 m2 for >3 months. CREATININE (test code = CREAT) 0.60 mg/dL 0.55-1.02 N Note change in reference range due to change in reagent. BUN/CREATININE RATIO (test code = BUN/CREA) 14.2 10-20 N TOTAL PROTEIN (test code = PROT) 5.6 gram/dL 6.4-8.2 L ALBUMIN (test code = ALB) 2.1 g/dL 3.4-5.0 L GLOBULIN (test code = GLOB) 3.5 gram/dL 2.7-4.2 N ALBUMIN/GLOBULIN RATIO (test code = A/G) 0.6 0.75-1.50 L CALCIUM (test code = CA) 8.5 mg/dL 8.5-10.1 N BILIRUBIN TOTAL (test code = BILT) 0.20 mg/dL 0.0-1.0 N SGOT/AST (test code = AST) 7 IUnit/L 15-37 L SGPT/ALT (test code = ALT) 9 IUnit/L 12-78 L ALKALINE PHOSPHATASE TOTAL (test code = ALKP) 108 IUnit/L 45-117 N Note change in reference range due to change in reagent. COMPREHENSIVE METABOLIC [id number] 10:53:00* Test Item Value Reference Range Interpretation Comments SODIUM (test code = NA) mmol/L 136-145 POTASSIUM (test code = K) mmol/L 3.5-5.1 CHLORIDE (test code = CL) mmol/L 98-107 CARBON DIOXIDE (test code = CO2) 32.0 mmol/L 21-32 N ANION GAP (test code = GAP) 10-20 GLUCOSE (test code = GLU) 184 mg/dL 74-106 H BLOOD UREA NITROGEN (test code = BUN) 9 mg/dL 7-18 N GLOMERULAR FILTRATION RATE (test code = GFR) > 60 mL/min >=60 Estimated GFR by using Modified MDRD formula.Chronic kidney disease is defined as either kidney damageor GFR <60 mL/min/1.73 m2 for >3 months. CREATININE (test code = CREAT) 0.60 mg/dL 0.55-1.02 N Note change in reference range due to change in reagent. BUN/CREATININE RATIO (test code = BUN/CREA) 14.2 10-20 N TOTAL PROTEIN (test code = PROT) 5.6 gram/dL 6.4-8.2 L ALBUMIN (test code = ALB) 2.1 g/dL 3.4-5.0 L GLOBULIN (test code = GLOB) 3.5 gram/dL 2.7-4.2 N ALBUMIN/GLOBULIN RATIO (test code = A/G) 0.6 0.75-1.50 L CALCIUM (test code = CA) 8.5 mg/dL 8.5-10.1 N BILIRUBIN TOTAL (test code = BILT) 0.20 mg/dL 0.0-1.0 N SGOT/AST (test code = AST) 7 IUnit/L 15-37 L SGPT/ALT (test code = ALT) 9 IUnit/L 12-78 L ALKALINE PHOSPHATASE TOTAL (test code = ALKP) 108 IUnit/L 45-117 N Note change in reference range due to change in reagent. [id number] 06:08:00* Test Item Value Reference Range Interpretation Comments GLUBED (test code = GLUBED) 202 mg/dL 74-106 H Performed by certified carousel operator at [facility] [id number] 20:19:00* Test Item Value Reference Range Interpretation Comments GLUBED (test code = GLUBED) 180 mg/dL 74-106 H Performed by certified carousel operator at [facility] [id number] 17:19:00* Test Item Value Reference Range Interpretation Comments VANCOMYCIN (test code = VANCO) 49.0 UG/ML 5.0-45.0 H [id number] 16:40:00* Test Item Value Reference Range Interpretation Comments GLUBED (test code = GLUBED) 170 mg/dL 74-106 H Performed by certified carousel operator at [facility] [id number] 12:08:00* Test Item Value Reference Range Interpretation Comments GLUBED (test code = GLUBED) 265 mg/dL 74-106 H Performed by certified carousel operator at [facility] COMPREHENSIVE METABOLIC [id number] 08:07:00* Test Item Value Reference Range Interpretation Comments SODIUM (test code = NA) 142 mmol/L 136-145 N POTASSIUM (test code = K) 4.4 mmol/L 3.5-5.1 N CHLORIDE (test code = CL) 109.0 mmol/L 98-107 H CARBON DIOXIDE (test code = CO2) 20.0 mmol/L 21-32 L ANION GAP (test code = GAP) 17.4 10-20 N GLUCOSE (test code = GLU) 260 mg/dL 74-106 H BLOOD UREA NITROGEN (test code = BUN) 15 mg/dL 7-18 N GLOMERULAR FILTRATION RATE (test code = GFR) > 60 mL/min >=60 Estimated GFR by using Modified MDRD formula.Chronic kidney disease is defined as either kidney damageor GFR <60 mL/min/1.73 m2 for >3 months. CREATININE (test code = CREAT) 0.70 mg/dL 0.55-1.02 N Note change in reference range due to change in reagent. BUN/CREATININE RATIO (test code = BUN/CREA) 20.0 10-20 N TOTAL PROTEIN (test code = PROT) 6.1 gram/dL 6.4-8.2 L ALBUMIN (test code = ALB) 2.4 g/dL 3.4-5.0 L GLOBULIN (test code = GLOB) 3.7 gram/dL 2.7-4.2 N ALBUMIN/GLOBULIN RATIO (test code = A/G) 0.6 0.75-1.50 L CALCIUM (test code = CA) 8.4 mg/dL 8.5-10.1 L BILIRUBIN TOTAL (test code = BILT) 0.40 mg/dL 0.0-1.0 N SGOT/AST (test code = AST) 11 IUnit/L 15-37 L SGPT/ALT (test code = ALT) 10 IUnit/L 12-78 L ALKALINE PHOSPHATASE TOTAL (test code = ALKP) 136 IUnit/L 45-117 H Note change in reference range due to change in reagent. COMPREHENSIVE METABOLIC [id number] 08:02:00* Test Item Value Reference Range Interpretation Comments SODIUM (test code = NA) 142 mmol/L 136-145 N POTASSIUM (test code = K) 4.4 mmol/L 3.5-5.1 N CHLORIDE (test code = CL) 109.0 mmol/L 98-107 H CARBON DIOXIDE (test code = CO2) mmol/L 21-32 ANION GAP (test code = GAP) 10-20 GLUCOSE (test code = GLU) mg/dL 74-106 BLOOD UREA NITROGEN (test code = BUN) mg/dL 7-18 GLOMERULAR FILTRATION RATE (test code = GFR) mL/min >=60 CREATININE (test code = CREAT) mg/dL 0.55-1.02 BUN/CREATININE RATIO (test code = BUN/CREA) 10-20 TOTAL PROTEIN (test code = PROT) gram/dL 6.4-8.2 ALBUMIN (test code = ALB) g/dL 3.4-5.0 GLOBULIN (test code = GLOB) gram/dL 2.7-4.2 ALBUMIN/GLOBULIN RATIO (test code = A/G) 0.75-1.50 CALCIUM (test code = CA) mg/dL 8.5-10.1 BILIRUBIN TOTAL (test code = BILT) mg/dL 0.0-1.0 SGOT/AST (test code = AST) IUnit/L 15-37 SGPT/ALT (test code = ALT) IUnit/L 12-78 ALKALINE PHOSPHATASE TOTAL (test code = ALKP) IUnit/L 45-117 CBC W/AUTO [id number] 07:55:00* Test Item Value Reference Range Interpretation Comments WHITE BLOOD CELL (test code = WBC) 19.4 K/mm3 4.5-12.5 H RED BLOOD CELL (test code = RBC) 3.30 mill/mm3 3.7-5.2 L HEMOGLOBIN (test code = HGB) 9.9 gram/dL 11.5-15.5 L HEMATOCRIT (test code = HCT) 33.0 % 36.0-46.0 L MEAN CELL VOLUME (test code = MCV) 100.0 fL 80-98 H MEAN CELL HGB (test code = MCH) 30.0 picogram 27.0-33.0 N MEAN CELL HGB CONCETRATION (test code = MCHC) 30.0 gram/dL 33.0-36. 0 L RED CELL DISTRIBUTION WIDTH (test code = RDW) 14.2 % 11.6-16. 2 N RED CELL DISTRIBUTION WIDTH SD (test code = RDW-SD) 52.1 fL 37 .0-51.0 H PLATELET COUNT (test code = PLT) 348 K/mm3 150-450 MEAN PLATELET VOLUME (test code = MPV) 12.2 fL 6.7-11.0 H NEUTROPHIL % (test code = NT%) 87.7 % 39.0-69.0 H IMMATURE GRANULOCYTE % (test code = IG%) 1.9 % 0.0-5.0 N LYMPHOCYTE % (test code = LY%) 6.6 % 25.0-55.0 L MONOCYTE % (test code = MO%) 3.5 % 0.0-10.0 N EOSINOPHIL % (test code = EO%) 0.0 % 0.0-5.0 N BASOPHIL % (test code = BA%) 0.3 % 0.0-1.0 N NUCLEATED RBC % (test code = NRBC%) 0.0 % 0-0 N NEUTROPHIL # (test code = NT#) 17.00 K/mm3 1.8-7.7 H IMMATURE GRANULOCYTE # (test code = IG#) 0.36 x10 3/uL 0-0.03 H LYMPHOCYTE # (test code = LY#) 1.27 K/mm3 1.0-5.0 N MONOCYTE # (test code = MO#) 0.67 K/mm3 0-0.8 N EOSINOPHIL # (test code = EO#) 0.00 K/mm3 0.0-0.5 N BASOPHIL # (test code = BA#) 0.06 K/mm3 0.0-0.2 N NUCLEATED RBC # (test code = NRBC#) 0.00 K/mm3 0.0-0.1 N [id number] 06:04:00* Test Item Value Reference Range Interpretation Comments GLUBED (test code = GLUBED) 274 mg/dL 74-106 H Performed by certified carousel operator at [facility] [id number] 01:08:00* Test Item Value Reference Range Interpretation Comments VANCOMYCIN (test code = VANCO) 22.3 UG/ML 5.0-45.0 N 0606@---MOBILAB COMMENT---[id number] 21:18:00* Test Item Value Reference Range Interpretation Comments GLUBED (test code = GLUBED) 237 mg/dL 74-106 H Performed by certified carousel operator at [facility] [id number] 16:59:00* Test Item Value Reference Range Interpretation Comments GLUBED (test code = GLUBED) 166 mg/dL 74-106 H Performed by certified carousel operator at [facility] [id number] 16:09:00* Test Item Value Reference Range Interpretation Comments GLUBED (test code = GLUBED) 178 mg/dL 74-106 H Performed by certified carousel operator at [facility] [id number] 16:09:00* Test Item Value Reference Range Interpretation Comments GLUBED (test code = GLUBED) 189 mg/dL 74-106 H Performed by certified carousel operator at [facility] COMPREHENSIVE METABOLIC [id number] 13:50:00* Test Item Value Reference Range Interpretation Comments SODIUM (test code = NA) 144 mmol/L 136-145 N POTASSIUM (test code = K) 4.3 mmol/L 3.5-5.1 N CHLORIDE (test code = CL) 108.0 mmol/L 98-107 H CARBON DIOXIDE (test code = CO2) 27.0 mmol/L 21-32 N ANION GAP (test code = GAP) 13.3 10-20 N GLUCOSE (test code = GLU) 197 mg/dL 74-106 H BLOOD UREA NITROGEN (test code = BUN) 18 mg/dL 7-18 N GLOMERULAR FILTRATION RATE (test code = GFR) > 60 mL/min >=60 Estimated GFR by using Modified MDRD formula.Chronic kidney disease is defined as either kidney damageor GFR <60 mL/min/1.73 m2 for >3 months. CREATININE (test code = CREAT) 0.80 mg/dL 0.55-1.02 N Note change in reference range due to change in reagent. BUN/CREATININE RATIO (test code = BUN/CREA) 22.4 10-20 H TOTAL PROTEIN (test code = PROT) 5.9 gram/dL 6.4-8.2 L ALBUMIN (test code = ALB) 2.3 g/dL 3.4-5.0 L GLOBULIN (test code = GLOB) 3.6 gram/dL 2.7-4.2 N ALBUMIN/GLOBULIN RATIO (test code = A/G) 0.6 0.75-1.50 L CALCIUM (test code = CA) 8.7 mg/dL 8.5-10.1 N BILIRUBIN TOTAL (test code = BILT) 0.20 mg/dL 0.0-1.0 N SGOT/AST (test code = AST) 10 IUnit/L 15-37 L SGPT/ALT (test code = ALT) 10 IUnit/L 12-78 L ALKALINE PHOSPHATASE TOTAL (test code = ALKP) 140 IUnit/L 45-117 H Note change in reference range due to change in reagent. [id number] 13:50:00* Test Item Value Reference Range Interpretation Comments VANCOMYCIN (test code = VANCO) 13.6 UG/ML 5.0-45.0 N COMPREHENSIVE METABOLIC [id number] 13:41:00* Test Item Value Reference Range Interpretation Comments SODIUM (test code = NA) 144 mmol/L 136-145 N POTASSIUM (test code = K) 4.3 mmol/L 3.5-5.1 N CHLORIDE (test code = CL) 108.0 mmol/L 98-107 H CARBON DIOXIDE (test code = CO2) mmol/L 21-32 ANION GAP (test code = GAP) 10-20 GLUCOSE (test code = GLU) mg/dL 74-106 BLOOD UREA NITROGEN (test code = BUN) mg/dL 7-18 GLOMERULAR FILTRATION RATE (test code = GFR) mL/min >=60 CREATININE (test code = CREAT) mg/dL 0.55-1.02 BUN/CREATININE RATIO (test code = BUN/CREA) 10-20 TOTAL PROTEIN (test code = PROT) gram/dL 6.4-8.2 ALBUMIN (test code = ALB) g/dL 3.4-5.0 GLOBULIN (test code = GLOB) gram/dL 2.7-4.2 ALBUMIN/GLOBULIN RATIO (test code = A/G) 0.75-1.50 CALCIUM (test code = CA) mg/dL 8.5-10.1 BILIRUBIN TOTAL (test code = BILT) mg/dL 0.0-1.0 SGOT/AST (test code = AST) IUnit/L 15-37 SGPT/ALT (test code = ALT) IUnit/L 12-78 ALKALINE PHOSPHATASE TOTAL (test code = ALKP) IUnit/L 45-117 CBC W/AUTO [id number] 13:14:00* Test Item Value Reference Range Interpretation Comments WHITE BLOOD CELL (test code = WBC) 22.2 K/mm3 4.5-12.5 H RED BLOOD CELL (test code = RBC) 2.78 mill/mm3 3.7-5.2 L HEMOGLOBIN (test code = HGB) 8.4 gram/dL 11.5-15.5 L HEMATOCRIT (test code = HCT) 26.6 % 36.0-46.0 L MEAN CELL VOLUME (test code = MCV) 95.7 fL 80-98 N MEAN CELL HGB (test code = MCH) 30.2 picogram 27.0-33.0 N MEAN CELL HGB CONCETRATION (test code = MCHC) 31.6 gram/dL 33.0-36. 0 L RED CELL DISTRIBUTION WIDTH (test code = RDW) 14.1 % 11.6-16. 2 N RED CELL DISTRIBUTION WIDTH SD (test code = RDW-SD) 49.5 fL 37 .0-51.0 N PLATELET COUNT (test code = PLT) 479 K/mm3 150-450 H MEAN PLATELET VOLUME (test code = MPV) 12.2 fL 6.7-11.0 H NEUTROPHIL % (test code = NT%) 79.4 % 39.0-69.0 H IMMATURE GRANULOCYTE % (test code = IG%) 1.9 % 0.0-5.0 N LYMPHOCYTE % (test code = LY%) 11.9 % 25.0-55.0 L MONOCYTE % (test code = MO%) 6.5 % 0.0-10.0 N EOSINOPHIL % (test code = EO%) 0.1 % 0.0-5.0 N BASOPHIL % (test code = BA%) 0.2 % 0.0-1.0 N NUCLEATED RBC % (test code = NRBC%) 0.1 % 0-0 H NEUTROPHIL # (test code = NT#) 17.65 K/mm3 1.8-7.7 H IMMATURE GRANULOCYTE # (test code = IG#) 0.42 x10 3/uL 0-0.03 H LYMPHOCYTE # (test code = LY#) 2.64 K/mm3 1.0-5.0 N MONOCYTE # (test code = MO#) 1.45 K/mm3 0-0.8 H EOSINOPHIL # (test code = EO#) 0.02 K/mm3 0.0-0.5 N BASOPHIL # (test code = BA#) 0.04 K/mm3 0.0-0.2 N NUCLEATED RBC # (test code = NRBC#) 0.02 K/mm3 0.0-0.1 N [id number] 20:49:00* Test Item Value Reference Range Interpretation Comments GLUBED (test code = GLUBED) 181 mg/dL 74-106 H Performed by certified carousel operator at [facility] CBC W/MANUAL [id number] 19:35:00* Test Item Value Reference Range Interpretation Comments WHITE BLOOD CELL (test code = WBC) 23.8 K/mm3 4.5-12.5 H RED BLOOD CELL (test code = RBC) 3.01 mill/mm3 3.7-5.2 L HEMOGLOBIN (test code = HGB) 9.1 gram/dL 11.5-15.5 L HEMATOCRIT (test code = HCT) 29.7 % 36.0-46.0 L MEAN CELL VOLUME (test code = MCV) 98.7 fL 80-98 H MEAN CELL HGB (test code = MCH) 30.2 picogram 27.0-33.0 N MEAN CELL HGB CONCETRATION (test code = MCHC) 30.6 gram/dL 33.0-36. 0 L RED CELL DISTRIBUTION WIDTH (test code = RDW) 14.3 % 11.6-16. 2 N RED CELL DISTRIBUTION WIDTH SD (test code = RDW-SD) 51.9 fL 37 .0-51.0 H PLATELET COUNT (test code = PLT) 449 K/mm3 150-450 N MEAN PLATELET VOLUME (test code = MPV) 11.7 fL 6.7-11.0 H IMMATURE GRANULOCYTE % (test code = IG%) 1.7 % 0.0-5.0 N NUCLEATED RBC % (test code = NRBC%) 0.1 % 0-0 H NEUTROPHIL # (test code = NT#) 21.85 K/mm3 1.8-7.7 H IMMATURE GRANULOCYTE # (test code = IG#) 0.40 x10 3/uL 0-0.03 H LYMPHOCYTE # (test code = LY#) 0.87 K/mm3 1.0-5.0 L MONOCYTE # (test code = MO#) 0.60 K/mm3 0-0.8 N EOSINOPHIL # (test code = EO#) 0.00 K/mm3 0.0-0.5 N BASOPHIL # (test code = BA#) 0.04 K/mm3 0.0-0.2 N NUCLEATED RBC # (test code = NRBC#) 0.02 K/mm3 0.0-0.1 N MANUAL DIFF REQUIRED (test code = MDIFF) YES STAIN ACCEPTABILITY (test code = STN ACCEPTABLE) STAIN ACCEPTABLE TOTAL CELLS COUNTED (test code = TCC) 113 #CELLS SEGMENTED NEUTROPHILS (test code = SEG) 96.5 % 39-69 H BAND NEUTROPHIL (test code = BAND) 0 % 0-10 N LYMPHOCYTE (test code = LYMPH) 2.6 % 25-55 L REACTIVE LYMPH (test code = RELYMPH) 0 % MONOCYTE (test code = MON) 0.9 % 0-10 N EOSINOPHIL (test code = EOS) 0 % 0.0-5.0 N BASOPHIL (test code = BASO) 0 % 0-1.0 N METAMYELOCYTE (test code = META) 0 % 0-0 N MYELOCYTE (test code = MYELO) 0 % 0.0-0.0 N PROMYELOCYTE (test code = PROM) 0 % 0-0 N ANISOCYTOSIS (test code = ANISO) 1+ PLATELET ESTIMATE (test code = PLTEST) ADEQUATE PLATELET MORPHOLOGY (test code = PLTMORPH) SIZE VARIABLE IMMATURE FORMS (test code = IMMAT) 0 % 0-0 N ARTERIAL BLOOD [id number] 18:10:00* Test Item Value Reference Range Interpretation Comments ARTERIAL BLOOD GAS PH (test code = PHA) 7.32 7.35-7.45 L ARTERIAL BLOOD GAS PCO2 (test code = PCO2A) 47.7 mm Hg 35-45 H ARTERIAL BLOOD GAS PO2 (test code = PO2A) 64.9 mmHg 80-100 L BICARBONATE TOTAL HCO3 (test code = HCO3) 24.2 mmol/L 23.0-27.0 N BASE EXCESS (test code = TONIA) -2.0 mmol/L -3.0-5.0 N ABG O2 SATURATION (test code = SATA) 91.7 % 90.0-98.0 N ABG TYPE (test code = TYPEA) Arterial FIO2 (test code = FIO2A) 32.0 ABG SITE (test code = SITEA) Rt RADIAL ARTERY MODIFIED ALLENS (test code = MODALL) Yes CHECK PERFORMED HEMATOCRIT (test code = HCT/ABG) 32 % 35-47 L TOTAL HGB (test code = THB) 10.9 gram/dL 11.5-15.5 L HGB O2 SAT (test code = HBOSAT) 91.2 % 94.00-98.00 L CARBOXYHEMOGLOBIN (test code = HOHGBT) 0.3 %totalHg 0.5-1.5 LL Results called to and read back by Wyatt 18:10 - 06/19/2019; by Rafi Christian METHEMOGLOBIN (test code = METHGB) 0.2 % 0.0-1.50 N O2 CONTENT (test code = O2CT) 14.0 % vol 18.0-22.0 L COMPREHENSIVE METABOLIC [id number] 17:54:00* Test Item Value Reference Range Interpretation Comments SODIUM (test code = NA) 143 mmol/L 136-145 N POTASSIUM (test code = K) 4.7 mmol/L 3.5-5.1 N CHLORIDE (test code = CL) 112.0 mmol/L 98-107 H CARBON DIOXIDE (test code = CO2) 22.0 mmol/L 21-32 N ANION GAP (test code = GAP) 13.7 10-20 N GLUCOSE (test code = GLU) 217 mg/dL 74-106 H BLOOD UREA NITROGEN (test code = BUN) 21 mg/dL 7-18 H GLOMERULAR FILTRATION RATE (test code = GFR) > 60 mL/min >=60 Estimated GFR by using Modified MDRD formula.Chronic kidney disease is defined as either kidney damageor GFR <60 mL/min/1.73 m2 for >3 months. CREATININE (test code = CREAT) 0.80 mg/dL 0.55-1.02 N Note change in reference range due to change in reagent. BUN/CREATININE RATIO (test code = BUN/CREA) 27.5 10-20 H TOTAL PROTEIN (test code = PROT) 6.0 gram/dL 6.4-8.2 L ALBUMIN (test code = ALB) 2.1 g/dL 3.4-5.0 L GLOBULIN (test code = GLOB) 3.9 gram/dL 2.7-4.2 N ALBUMIN/GLOBULIN RATIO (test code = A/G) 0.5 0.75-1.50 L CALCIUM (test code = CA) 8.7 mg/dL 8.5-10.1 N BILIRUBIN TOTAL (test code = BILT) 0.20 mg/dL 0.0-1.0 N SGOT/AST (test code = AST) 10 IUnit/L 15-37 L SGPT/ALT (test code = ALT) 10 IUnit/L 12-78 L ALKALINE PHOSPHATASE TOTAL (test code = ALKP) 136 IUnit/L 45-117 H Note change in reference range due to change in reagent. [id number] NOTIFIED COMPREHENSIVE METABOLIC [id number] 17:50:00* Test Item Value Reference Range Interpretation Comments SODIUM (test code = NA) 143 mmol/L 136-145 N POTASSIUM (test code = K) 4.7 mmol/L 3.5-5.1 N CHLORIDE (test code = CL) 112.0 mmol/L 98-107 H CARBON DIOXIDE (test code = CO2) mmol/L 21-32 ANION GAP (test code = GAP) 10-20 GLUCOSE (test code = GLU) mg/dL 74-106 BLOOD UREA NITROGEN (test code = BUN) mg/dL 7-18 GLOMERULAR FILTRATION RATE (test code = GFR) mL/min >=60 CREATININE (test code = CREAT) mg/dL 0.55-1.02 BUN/CREATININE RATIO (test code = BUN/CREA) 10-20 TOTAL PROTEIN (test code = PROT) gram/dL 6.4-8.2 ALBUMIN (test code = ALB) g/dL 3.4-5.0 GLOBULIN (test code = GLOB) gram/dL 2.7-4.2 ALBUMIN/GLOBULIN RATIO (test code = A/G) 0.75-1.50 CALCIUM (test code = CA) mg/dL 8.5-10.1 BILIRUBIN TOTAL (test code = BILT) mg/dL 0.0-1.0 SGOT/AST (test code = AST) IUnit/L 15-37 SGPT/ALT (test code = ALT) IUnit/L 12-78 ALKALINE PHOSPHATASE TOTAL (test code = ALKP) IUnit/L 45-117 [id number] NOTIFIED CBC W/MANUAL [id number] 17:44:00* Test Item Value Reference Range Interpretation Comments WHITE BLOOD CELL (test code = WBC) 23.8 K/mm3 4.5-12.5 H RED BLOOD CELL (test code = RBC) 3.01 mill/mm3 3.7-5.2 L HEMOGLOBIN (test code = HGB) 9.1 gram/dL 11.5-15.5 L HEMATOCRIT (test code = HCT) 29.7 % 36.0-46.0 L MEAN CELL VOLUME (test code = MCV) 98.7 fL 80-98 H MEAN CELL HGB (test code = MCH) 30.2 picogram 27.0-33.0 N MEAN CELL HGB CONCETRATION (test code = MCHC) 30.6 gram/dL 33.0-36. 0 L RED CELL DISTRIBUTION WIDTH (test code = RDW) 14.3 % 11.6-16. 2 N RED CELL DISTRIBUTION WIDTH SD (test code = RDW-SD) 51.9 fL 37 .0-51.0 H PLATELET COUNT (test code = PLT) 449 K/mm3 150-450 N MEAN PLATELET VOLUME (test code = MPV) 11.7 fL 6.7-11.0 H IMMATURE GRANULOCYTE % (test code = IG%) 1.7 % 0.0-5.0 N NUCLEATED RBC % (test code = NRBC%) 0.1 % 0-0 H NEUTROPHIL # (test code = NT#) 21.85 K/mm3 1.8-7.7 H IMMATURE GRANULOCYTE # (test code = IG#) 0.40 x10 3/uL 0-0.03 H LYMPHOCYTE # (test code = LY#) 0.87 K/mm3 1.0-5.0 L MONOCYTE # (test code = MO#) 0.60 K/mm3 0-0.8 N EOSINOPHIL # (test code = EO#) 0.00 K/mm3 0.0-0.5 N BASOPHIL # (test code = BA#) 0.04 K/mm3 0.0-0.2 N NUCLEATED RBC # (test code = NRBC#) 0.02 K/mm3 0.0-0.1 N MANUAL DIFF REQUIRED (test code = MDIFF) YES STAIN ACCEPTABILITY (test code = STN ACCEPTABLE) TOTAL CELLS COUNTED (test code = TCC) #CELLS SEGMENTED NEUTROPHILS (test code = SEG) % 39-69 LYMPHOCYTE (test code = LYMPH) % 25-55 MONOCYTE (test code = MON) % 0-10 EOSINOPHIL (test code = EOS) % 0.0-5.0 CABOT RINGS (test code = CAB) MORPHOLOGY COMMENT (test code = MOC) PLATELET ESTIMATE (test code = PLTEST) PLATELET MORPHOLOGY (test code = PLTMORPH) CBC W/MANUAL [id number] 17:44:00* Test Item Value Reference Range Interpretation Comments WHITE BLOOD CELL (test code = WBC) 23.8 K/mm3 4.5-12.5 H RED BLOOD CELL (test code = RBC) 3.01 mill/mm3 3.7-5.2 L HEMOGLOBIN (test code = HGB) 9.1 gram/dL 11.5-15.5 L HEMATOCRIT (test code = HCT) 29.7 % 36.0-46.0 L MEAN CELL VOLUME (test code = MCV) 98.7 fL 80-98 H MEAN CELL HGB (test code = MCH) 30.2 picogram 27.0-33.0 N MEAN CELL HGB CONCETRATION (test code = MCHC) 30.6 gram/dL 33.0-36. 0 L RED CELL DISTRIBUTION WIDTH (test code = RDW) 14.3 % 11.6-16. 2 N RED CELL DISTRIBUTION WIDTH SD (test code = RDW-SD) 51.9 fL 37 .0-51.0 H PLATELET COUNT (test code = PLT) 449 K/mm3 150-450 N MEAN PLATELET VOLUME (test code = MPV) 11.7 fL 6.7-11.0 H IMMATURE GRANULOCYTE % (test code = IG%) 1.7 % 0.0-5.0 N NUCLEATED RBC % (test code = NRBC%) 0.1 % 0-0 H NEUTROPHIL # (test code = NT#) 21.85 K/mm3 1.8-7.7 H IMMATURE GRANULOCYTE # (test code = IG#) 0.40 x10 3/uL 0-0.03 H LYMPHOCYTE # (test code = LY#) 0.87 K/mm3 1.0-5.0 L MONOCYTE # (test code = MO#) 0.60 K/mm3 0-0.8 N EOSINOPHIL # (test code = EO#) 0.00 K/mm3 0.0-0.5 N BASOPHIL # (test code = BA#) 0.04 K/mm3 0.0-0.2 N NUCLEATED RBC # (test code = NRBC#) 0.02 K/mm3 0.0-0.1 N MANUAL DIFF REQUIRED (test code = MDIFF) YES STAIN ACCEPTABILITY (test code = STN ACCEPTABLE) TOTAL CELLS COUNTED (test code = TCC) #CELLS SEGMENTED NEUTROPHILS (test code = SEG) % 39-69 LYMPHOCYTE (test code = LYMPH) % 25-55 MONOCYTE (test code = MON) % 0-10 EOSINOPHIL (test code = EOS) % 0.0-5.0 CABOT RINGS (test code = CAB) MORPHOLOGY COMMENT (test code = MOC) PLATELET ESTIMATE (test code = PLTEST) PLATELET MORPHOLOGY (test code = PLTMORPH) CBC W/MANUAL [id number] 17:44:00* Test Item Value Reference Range Interpretation Comments WHITE BLOOD CELL (test code = WBC) 23.8 K/mm3 4.5-12.5 H RED BLOOD CELL (test code = RBC) 3.01 mill/mm3 3.7-5.2 L HEMOGLOBIN (test code = HGB) 9.1 gram/dL 11.5-15.5 L HEMATOCRIT (test code = HCT) 29.7 % 36.0-46.0 L MEAN CELL VOLUME (test code = MCV) 98.7 fL 80-98 H MEAN CELL HGB (test code = MCH) 30.2 picogram 27.0-33.0 N MEAN CELL HGB CONCETRATION (test code = MCHC) 30.6 gram/dL 33.0-36. 0 L RED CELL DISTRIBUTION WIDTH (test code = RDW) 14.3 % 11.6-16. 2 N RED CELL DISTRIBUTION WIDTH SD (test code = RDW-SD) 51.9 fL 37 .0-51.0 H PLATELET COUNT (test code = PLT) 449 K/mm3 150-450 N MEAN PLATELET VOLUME (test code = MPV) 11.7 fL 6.7-11.0 H IMMATURE GRANULOCYTE % (test code = IG%) 1.7 % 0.0-5.0 N NUCLEATED RBC % (test code = NRBC%) 0.1 % 0-0 H NEUTROPHIL # (test code = NT#) 21.85 K/mm3 1.8-7.7 H IMMATURE GRANULOCYTE # (test code = IG#) 0.40 x10 3/uL 0-0.03 H LYMPHOCYTE # (test code = LY#) 0.87 K/mm3 1.0-5.0 L MONOCYTE # (test code = MO#) 0.60 K/mm3 0-0.8 N EOSINOPHIL # (test code = EO#) 0.00 K/mm3 0.0-0.5 N BASOPHIL # (test code = BA#) 0.04 K/mm3 0.0-0.2 N NUCLEATED RBC # (test code = NRBC#) 0.02 K/mm3 0.0-0.1 N MANUAL DIFF REQUIRED (test code = MDIFF) YES STAIN ACCEPTABILITY (test code = STN ACCEPTABLE) TOTAL CELLS COUNTED (test code = TCC) #CELLS SEGMENTED NEUTROPHILS (test code = SEG) % 39-69 LYMPHOCYTE (test code = LYMPH) % 25-55 MONOCYTE (test code = MON) % 0-10 EOSINOPHIL (test code = EOS) % 0.0-5.0 MORPHOLOGY COMMENT (test code = MOC) PLATELET ESTIMATE (test code = PLTEST) PLATELET MORPHOLOGY (test code = PLTMORPH) CBC W/MANUAL [id number] 17:44:00* Test Item Value Reference Range Interpretation Comments WHITE BLOOD CELL (test code = WBC) 23.8 K/mm3 4.5-12.5 H RED BLOOD CELL (test code = RBC) 3.01 mill/mm3 3.7-5.2 L HEMOGLOBIN (test code = HGB) 9.1 gram/dL 11.5-15.5 L HEMATOCRIT (test code = HCT) 29.7 % 36.0-46.0 L MEAN CELL VOLUME (test code = MCV) 98.7 fL 80-98 H MEAN CELL HGB (test code = MCH) 30.2 picogram 27.0-33.0 N MEAN CELL HGB CONCETRATION (test code = MCHC) 30.6 gram/dL 33.0-36. 0 L RED CELL DISTRIBUTION WIDTH (test code = RDW) 14.3 % 11.6-16. 2 N RED CELL DISTRIBUTION WIDTH SD (test code = RDW-SD) 51.9 fL 37 .0-51.0 H PLATELET COUNT (test code = PLT) 449 K/mm3 150-450 N MEAN PLATELET VOLUME (test code = MPV) 11.7 fL 6.7-11.0 H IMMATURE GRANULOCYTE % (test code = IG%) 1.7 % 0.0-5.0 N NUCLEATED RBC % (test code = NRBC%) 0.1 % 0-0 H NEUTROPHIL # (test code = NT#) 21.85 K/mm3 1.8-7.7 H IMMATURE GRANULOCYTE # (test code = IG#) 0.40 x10 3/uL 0-0.03 H LYMPHOCYTE # (test code = LY#) 0.87 K/mm3 1.0-5.0 L MONOCYTE # (test code = MO#) 0.60 K/mm3 0-0.8 N EOSINOPHIL # (test code = EO#) 0.00 K/mm3 0.0-0.5 N BASOPHIL # (test code = BA#) 0.04 K/mm3 0.0-0.2 N NUCLEATED RBC # (test code = NRBC#) 0.02 K/mm3 0.0-0.1 N MANUAL DIFF REQUIRED (test code = MDIFF) YES STAIN ACCEPTABILITY (test code = STN ACCEPTABLE) TOTAL CELLS COUNTED (test code = TCC) #CELLS SEGMENTED NEUTROPHILS (test code = SEG) % 39-69 LYMPHOCYTE (test code = LYMPH) % 25-55 MONOCYTE (test code = MON) % 0-10 MORPHOLOGY COMMENT (test code = MOC) PLATELET ESTIMATE (test code = PLTEST) PLATELET MORPHOLOGY (test code = PLTMORPH) CBC W/MANUAL [id number] 17:44:00* Test Item Value Reference Range Interpretation Comments WHITE BLOOD CELL (test code = WBC) 23.8 K/mm3 4.5-12.5 H RED BLOOD CELL (test code = RBC) 3.01 mill/mm3 3.7-5.2 L HEMOGLOBIN (test code = HGB) 9.1 gram/dL 11.5-15.5 L HEMATOCRIT (test code = HCT) 29.7 % 36.0-46.0 L MEAN CELL VOLUME (test code = MCV) 98.7 fL 80-98 H MEAN CELL HGB (test code = MCH) 30.2 picogram 27.0-33.0 N MEAN CELL HGB CONCETRATION (test code = MCHC) 30.6 gram/dL 33.0-36. 0 L RED CELL DISTRIBUTION WIDTH (test code = RDW) 14.3 % 11.6-16. 2 N RED CELL DISTRIBUTION WIDTH SD (test code = RDW-SD) 51.9 fL 37 .0-51.0 H PLATELET COUNT (test code = PLT) 449 K/mm3 150-450 N MEAN PLATELET VOLUME (test code = MPV) 11.7 fL 6.7-11.0 H IMMATURE GRANULOCYTE % (test code = IG%) 1.7 % 0.0-5.0 N NUCLEATED RBC % (test code = NRBC%) 0.1 % 0-0 H NEUTROPHIL # (test code = NT#) 21.85 K/mm3 1.8-7.7 H IMMATURE GRANULOCYTE # (test code = IG#) 0.40 x10 3/uL 0-0.03 H LYMPHOCYTE # (test code = LY#) 0.87 K/mm3 1.0-5.0 L MONOCYTE # (test code = MO#) 0.60 K/mm3 0-0.8 N EOSINOPHIL # (test code = EO#) 0.00 K/mm3 0.0-0.5 N BASOPHIL # (test code = BA#) 0.04 K/mm3 0.0-0.2 N NUCLEATED RBC # (test code = NRBC#) 0.02 K/mm3 0.0-0.1 N MANUAL DIFF REQUIRED (test code = MDIFF) YES STAIN ACCEPTABILITY (test code = STN ACCEPTABLE) TOTAL CELLS COUNTED (test code = TCC) #CELLS SEGMENTED NEUTROPHILS (test code = SEG) % 39-69 LYMPHOCYTE (test code = LYMPH) % 25-55 MONOCYTE (test code = MON) % 0-10 EOSINOPHIL (test code = EOS) % 0.0-5.0 CABOT RINGS (test code = CAB) MORPHOLOGY COMMENT (test code = MOC) PLATELET ESTIMATE (test code = PLTEST) PLATELET MORPHOLOGY (test code = PLTMORPH) [id number] 16:28:00* Test Item Value Reference Range Interpretation Comments GLUBED (test code = GLUBED) 217 mg/dL 74-106 H Performed by certified carousel operator at [facility] - XR SWLW FUNC W/C [id number] 14:48:00 FAX: Jak Dumont MD [phone] [place]: B St: ADM FAX: Kevin Bass MD [phone] FAX: Kevin Marrero MD [phone] Name: DAYANA RICHARDSON [facility] : 1960 Age/S: 59/F [address] Unit #: [id number] Loc: [place] [address] Phys: Kevin Real MD Acct: [id number] Dis Date: Status: ADM IN PH ONE #: [phone] Exam Date: 06/19/2019 1415 FAX #: [phone] Reason: stricture EXAMS: CPT CODE: [id number] XR SWLW FUNC W/C V 49411 HISTORY: Aspir ation. This study was performed in concert with the speech patholo gist. Varying grades of barium were administered. No aspiration or laryngeal penetration. IMPRESSION: No aspiration or laryngeal penetration. For detailed evalu ation please see the accompanying sheet provided by the speech therapist . Fluoroscopy time utilized was 49.3 seconds. 7 images were obtained. at 2015 Reported and signed by: Telly Arguello M.D. CC: Jak Dumont MD; Kevin Veronica MD; Kevin Real MD Technologist: Carlos Rodriguez RT(R) Trnscrd Date/Time/By: 06/19 (2774) : By: [email or web address] Orig Print D/T: S: 06/19/2019 (9664) PAGE 1 Signed Report [id number] 11:06:00* Test Item Value Reference Range Interpretation Comments GLUBED (test code = GLUBED) 240 mg/dL 74-106 H Performed by certified carousel operator at [facility] [id number] 06:14:00* Test Item Value Reference Range Interpretation Comments GLUBED (test code = GLUBED) 250 mg/dL 74-106 H Performed by certified carousel operator at [facility] [id number] 21:05:00* Test Item Value Reference Range Interpretation Comments GLUBED (test code = GLUBED) 246 mg/dL 74-106 H Performed by certified carousel operator at [facility] [id number] 17:31:00* Test Item Value Reference Range Interpretation Comments GLUBED (test code = GLUBED) 237 mg/dL 74-106 H Performed by certified carousel operator at [facility] [id number] 12:34:00* Test Item Value Reference Range Interpretation Comments GLUBED (test code = GLUBED) 270 mg/dL 74-106 H Performed by certified carousel operator at [facility] [id number] 05:08:00* Test Item Value Reference Range Interpretation Comments GLUBED (test code = GLUBED) 263 mg/dL 74-106 H Performed by certified carousel operator at [facility] [id number] 21:06:00* Test Item Value Reference Range Interpretation Comments GLUBED (test code = GLUBED) 215 mg/dL 74-106 H Performed by certified carousel operator at [facility] [id number] 18:12:00* Test Item Value Reference Range Interpretation Comments GLUBED (test code = GLUBED) 235 mg/dL 74-106 H Performed by certified carousel operator at [facility] [id number] 12:02:00* Test Item Value Reference Range Interpretation Comments GLUBED (test code = GLUBED) 284 mg/dL 74-106 H Performed by certified carousel operator at [facility] BASIC METABOLIC [id number] 09:57:00* Test Item Value Reference Range Interpretation Comments SODIUM (test code = NA) 139 mmol/L 136-145 N POTASSIUM (test code = K) 4.4 mmol/L 3.5-5.1 N CHLORIDE (test code = CL) 108.0 mmol/L 98-107 H CARBON DIOXIDE (test code = CO2) 21.0 mmol/L 21-32 N ANION GAP (test code = GAP) 14.4 10-20 N GLUCOSE (test code = GLU) 317 mg/dL 74-106 H BLOOD UREA NITROGEN (test code = BUN) 22 mg/dL 7-18 H RESULT VERIFIED BY REPEAT ANALYSIS GLOMERULAR FILTRATION RATE (test code = GFR) 57 mL/min >=60 Estimated GFR by using Modified MDRD formula.Chronic kidney disease is defined as either kidney damageor GFR <60 mL/min/1.73 m2 for >3 months. CREATININE (test code = CREAT) 1.00 mg/dL 0.55-1.02 N Note change in reference range due to change in reagent. BUN/CREATININE RATIO (test code = BUN/CREA) 22.0 10-20 H CALCIUM (test code = CA) 9.1 mg/dL 8.5-10.1 N BASIC METABOLIC [id number] 08:48:00* Test Item Value Reference Range Interpretation Comments SODIUM (test code = NA) 139 mmol/L 136-145 N POTASSIUM (test code = K) 4.4 mmol/L 3.5-5.1 N CHLORIDE (test code = CL) 108.0 mmol/L 98-107 H CARBON DIOXIDE (test code = CO2) 21.0 mmol/L 21-32 N ANION GAP (test code = GAP) 14.4 10-20 N GLUCOSE (test code = GLU) 317 mg/dL 74-106 H BLOOD UREA NITROGEN (test code = BUN) 22 mg/dL 7-18 H GLOMERULAR FILTRATION RATE (test code = GFR) 57 mL/min >=60 Estimated GFR by using Modified MDRD formula.Chronic kidney disease is defined as either kidney damageor GFR <60 mL/min/1.73 m2 for >3 months. CREATININE (test code = CREAT) 1.00 mg/dL 0.55-1.02 N Note change in reference range due to change in reagent. BUN/CREATININE RATIO (test code = BUN/CREA) 22.0 10-20 H CALCIUM (test code = CA) 9.1 mg/dL 8.5-10.1 N CBC W/MANUAL [id number] 08:29:00* Test Item Value Reference Range Interpretation Comments WHITE BLOOD CELL (test code = WBC) 47.1 K/mm3 4.5-12.5 H RESULT VERIFIED BY REPEAT ANALYSISHas "Path Review" been performed on patient's currentadmission?If yes, please insert path review specimen here If not, please order "Path Review" for the followingcriteria:1/ WBC count over 40,000/mm3 or below 2,000/mm32/ Platelet counts over 1,000,000/mm3, or below 10,000/mm3, or with abnormal morphology.3/ Abnormal red cell morphology or inclusions which are se miguel (> 3+) , widespread, or difficult to classify.4/ Abnormal white blood cell morphology: Blasts present in peripheral blood of any patient as a new finding. Abnormal cells suspected of being blasts. Patients with large numbers of immature cells in peripheral blood. Unusual cells or cells not easily classified in peripheral blood.5/ Any smear in which the technologist is uncertain of the classification or the disease. RED BLOOD CELL (test code = RBC) 3.08 mill/mm3 3.7-5.2 L HEMOGLOBIN (test code = HGB) 9.1 gram/dL 11.5-15.5 L HEMATOCRIT (test code = HCT) 29.4 % 36.0-46.0 L MEAN CELL VOLUME (test code = MCV) 95.5 fL 80-98 N MEAN CELL HGB (test code = MCH) 29.5 picogram 27.0-33.0 N MEAN CELL HGB CONCETRATION (test code = MCHC) 31.0 gram/dL 33.0-36. 0 L RED CELL DISTRIBUTION WIDTH (test code = RDW) 13.8 % 11.6-16. 2 N RED CELL DISTRIBUTION WIDTH SD (test code = RDW-SD) 47.8 fL 37 .0-51.0 N PLATELET COUNT (test code = PLT) 411 K/mm3 150-450 RESULT VERIFIED BY REPEAT ANALYSIS MEAN PLATELET VOLUME (test code = MPV) 12.1 fL 6.7-11.0 H IMMATURE GRANULOCYTE % (test code = IG%) 2.7 % 0.0-5.0 N NUCLEATED RBC % (test code = NRBC%) 0.0 % 0-0 N NEUTROPHIL # (test code = NT#) 44.50 K/mm3 1.8-7.7 H IMMATURE GRANULOCYTE # (test code = IG#) 1.26 x10 3/uL 0-0.03 H LYMPHOCYTE # (test code = LY#) 0.74 K/mm3 1.0-5.0 L MONOCYTE # (test code = MO#) 0.44 K/mm3 0-0.8 N EOSINOPHIL # (test code = EO#) 0.00 K/mm3 0.0-0.5 N BASOPHIL # (test code = BA#) 0.13 K/mm3 0.0-0.2 N NUCLEATED RBC # (test code = NRBC#) 0.00 K/mm3 0.0-0.1 N MANUAL DIFF REQUIRED (test code = MDIFF) YES STAIN ACCEPTABILITY (test code = STN ACCEPTABLE) STAIN ACCEPTABLE TOTAL CELLS COUNTED (test code = TCC) 115 #CELLS SEGMENTED NEUTROPHILS (test code = SEG) 98.2 % 39-69 H BAND NEUTROPHIL (test code = BAND) 0 % 0-10 N LYMPHOCYTE (test code = LYMPH) 0 % 25-55 L REACTIVE LYMPH (test code = RELYMPH) 0 % MONOCYTE (test code = MON) 0.9 % 0-10 N EOSINOPHIL (test code = EOS) 0 % 0.0-5.0 N BASOPHIL (test code = BASO) 0 % 0-1.0 N METAMYELOCYTE (test code = META) 0 % 0-0 N MYELOCYTE (test code = MYELO) 0 % 0.0-0.0 N PROMYELOCYTE (test code = PROM) 0.9 % 0-0 H ANISOCYTOSIS (test code = ANISO) 1+ MACROCYTOSIS (test code = MACR) 1+ PLATELET ESTIMATE (test code = PLTEST) ADEQUATE PLATELET MORPHOLOGY (test code = PLTMORPH) NORMAL IMMATURE FORMS (test code = IMMAT) 0 % 0-0 N BASIC METABOLIC [id number] 08:19:00* Test Item Value Reference Range Interpretation Comments SODIUM (test code = NA) 139 mmol/L 136-145 N POTASSIUM (test code = K) 4.4 mmol/L 3.5-5.1 N CHLORIDE (test code = CL) 108.0 mmol/L 98-107 H CARBON DIOXIDE (test code = CO2) mmol/L 21-32 ANION GAP (test code = GAP) 10-20 GLUCOSE (test code = GLU) mg/dL 74-106 BLOOD UREA NITROGEN (test code = BUN) mg/dL 7-18 GLOMERULAR FILTRATION RATE (test code = GFR) mL/min >=60 CREATININE (test code = CREAT) mg/dL 0.55-1.02 BUN/CREATININE RATIO (test code = BUN/CREA) 10-20 CALCIUM (test code = CA) mg/dL 8.5-10.1 URINALYSIS [id number] 08:13:00* Test Item Value Reference Range Interpretation Comments UA COLOR (test code = COLU) Light-Yellow YELLOW UA APPEARANCE (test code = APPU) CLEAR CLEAR UA GLUCOSE DIPSTICK (test code = DGLUU) >1000 (4+) mg/dL NEGATIVE UA BILIRUBIN DIPSTICK (test code = BILU) NEGATIVE mg/dL NEGATIVE UA KETONE DIPSTICK (test code = KETU) NEGATIVE mg/dL NEGATIVE UA SPECIFIC GRAVITY (test code = SGU) 1.029 1.001-1.035 UA BLOOD DIPSTICK (test code = ERINN) Negative mg/dL NEGATIVE UA PH DIPSTICK (test code = EVELYN) 5.5 5.0-8.0 UA PROTEIN DIPSTICK (test code = PROU) 10 (Trace) mg/dL NEGATIVE A UA UROBILINIOGEN DIPSTICK (test code = URO) Normal mg/dL NEGATIVE UA NITRITE DIPSTICK (test code = SMITH) NEGATIVE NEGATIVE UA LEUKOCYTE ESTERASE W REFLEX (test code = LEUUR) NEGATIVE Jazmine/uL NEGATIVE UA WBC (test code = WBCU) 0-5 per HPF 0-5 UA RBC (test code = RBCU) 0-2 #/HPF 0-5 UA EPITHELIAL CELLS (test code = EPIU) FEW per HPF FEW UA BACTERIA (test code = BACU) NONE SEEN #/HPF NONE Urine Source? Clean CatchCBC W/MANUAL [id number] 08:03:00* Test Item Value Reference Range Interpretation Comments WHITE BLOOD CELL (test code = WBC) 47.1 K/mm3 4.5-12.5 H RESULT VERIFIED BY REPEAT ANALYSISHas "Path Review" been performed on patient's currentadmission?If yes, please insert path review specimen here If not, please order "Path Review" for the followingcriteria:1/ WBC count over 40,000/mm3 or below 2,000/mm32/ Platelet counts over 1,000,000/mm3, or below 10,000/mm3, or with abnormal morphology.3/ Abnormal red cell morphology or inclusions which are se miguel (> 3+) , widespread, or difficult to classify.4/ Abnormal white blood cell morphology: Blasts present in peripheral blood of any patient as a new finding. Abnormal cells suspected of being blasts. Patients with large numbers of immature cells in peripheral blood. Unusual cells or cells not easily classified in peripheral blood.5/ Any smear in which the technologist is uncertain of the classification or the disease. RED BLOOD CELL (test code = RBC) 3.08 mill/mm3 3.7-5.2 L HEMOGLOBIN (test code = HGB) 9.1 gram/dL 11.5-15.5 L HEMATOCRIT (test code = HCT) 29.4 % 36.0-46.0 L MEAN CELL VOLUME (test code = MCV) 95.5 fL 80-98 N MEAN CELL HGB (test code = MCH) 29.5 picogram 27.0-33.0 N MEAN CELL HGB CONCETRATION (test code = MCHC) 31.0 gram/dL 33.0-36. 0 L RED CELL DISTRIBUTION WIDTH (test code = RDW) 13.8 % 11.6-16. 2 N RED CELL DISTRIBUTION WIDTH SD (test code = RDW-SD) 47.8 fL 37 .0-51.0 N PLATELET COUNT (test code = PLT) 411 K/mm3 150-450 RESULT VERIFIED BY REPEAT ANALYSIS MEAN PLATELET VOLUME (test code = MPV) 12.1 fL 6.7-11.0 H IMMATURE GRANULOCYTE % (test code = IG%) 2.7 % 0.0-5.0 N NUCLEATED RBC % (test code = NRBC%) 0.0 % 0-0 N NEUTROPHIL # (test code = NT#) 44.50 K/mm3 1.8-7.7 H IMMATURE GRANULOCYTE # (test code = IG#) 1.26 x10 3/uL 0-0.03 H LYMPHOCYTE # (test code = LY#) 0.74 K/mm3 1.0-5.0 L MONOCYTE # (test code = MO#) 0.44 K/mm3 0-0.8 N EOSINOPHIL # (test code = EO#) 0.00 K/mm3 0.0-0.5 N BASOPHIL # (test code = BA#) 0.13 K/mm3 0.0-0.2 N NUCLEATED RBC # (test code = NRBC#) 0.00 K/mm3 0.0-0.1 N MANUAL DIFF REQUIRED (test code = MDIFF) YES STAIN ACCEPTABILITY (test code = STN ACCEPTABLE) TOTAL CELLS COUNTED (test code = TCC) #CELLS SEGMENTED NEUTROPHILS (test code = SEG) % 39-69 LYMPHOCYTE (test code = LYMPH) % 25-55 MONOCYTE (test code = MON) % 0-10 EOSINOPHIL (test code = EOS) % 0.0-5.0 CABOT RINGS (test code = CAB) MORPHOLOGY COMMENT (test code = MOC) PLATELET ESTIMATE (test code = PLTEST) PLATELET MORPHOLOGY (test code = PLTMORPH) CBC W/MANUAL [id number] 08:03:00* Test Item Value Reference Range Interpretation Comments WHITE BLOOD CELL (test code = WBC) 47.1 K/mm3 4.5-12.5 H RESULT VERIFIED BY REPEAT ANALYSISHas "Path Review" been performed on patient's currentadmission?If yes, please insert path review specimen here If not, please order "Path Review" for the followingcriteria:1/ WBC count over 40,000/mm3 or below 2,000/mm32/ Platelet counts over 1,000,000/mm3, or below 10,000/mm3, or with abnormal morphology.3/ Abnormal red cell morphology or inclusions which are se miguel (> 3+) , widespread, or difficult to classify.4/ Abnormal white blood cell morphology: Blasts present in peripheral blood of any patient as a new finding. Abnormal cells suspected of being blasts. Patients with large numbers of immature cells in peripheral blood. Unusual cells or cells not easily classified in peripheral blood.5/ Any smear in which the technologist is uncertain of the classification or the disease. RED BLOOD CELL (test code = RBC) 3.08 mill/mm3 3.7-5.2 L HEMOGLOBIN (test code = HGB) 9.1 gram/dL 11.5-15.5 L HEMATOCRIT (test code = HCT) 29.4 % 36.0-46.0 L MEAN CELL VOLUME (test code = MCV) 95.5 fL 80-98 N MEAN CELL HGB (test code = MCH) 29.5 picogram 27.0-33.0 N MEAN CELL HGB CONCETRATION (test code = MCHC) 31.0 gram/dL 33.0-36. 0 L RED CELL DISTRIBUTION WIDTH (test code = RDW) 13.8 % 11.6-16. 2 N RED CELL DISTRIBUTION WIDTH SD (test code = RDW-SD) 47.8 fL 37 .0-51.0 N PLATELET COUNT (test code = PLT) 411 K/mm3 150-450 RESULT VERIFIED BY REPEAT ANALYSIS MEAN PLATELET VOLUME (test code = MPV) 12.1 fL 6.7-11.0 H IMMATURE GRANULOCYTE % (test code = IG%) 2.7 % 0.0-5.0 N NUCLEATED RBC % (test code = NRBC%) 0.0 % 0-0 N NEUTROPHIL # (test code = NT#) 44.50 K/mm3 1.8-7.7 H IMMATURE GRANULOCYTE # (test code = IG#) 1.26 x10 3/uL 0-0.03 H LYMPHOCYTE # (test code = LY#) 0.74 K/mm3 1.0-5.0 L MONOCYTE # (test code = MO#) 0.44 K/mm3 0-0.8 N EOSINOPHIL # (test code = EO#) 0.00 K/mm3 0.0-0.5 N BASOPHIL # (test code = BA#) 0.13 K/mm3 0.0-0.2 N NUCLEATED RBC # (test code = NRBC#) 0.00 K/mm3 0.0-0.1 N MANUAL DIFF REQUIRED (test code = MDIFF) YES STAIN ACCEPTABILITY (test code = STN ACCEPTABLE) TOTAL CELLS COUNTED (test code = TCC) #CELLS SEGMENTED NEUTROPHILS (test code = SEG) % 39-69 LYMPHOCYTE (test code = LYMPH) % 25-55 MONOCYTE (test code = MON) % 0-10 EOSINOPHIL (test code = EOS) % 0.0-5.0 CABOT RINGS (test code = CAB) MORPHOLOGY COMMENT (test code = MOC) PLATELET ESTIMATE (test code = PLTEST) PLATELET MORPHOLOGY (test code = PLTMORPH) CBC W/MANUAL [id number] 08:03:00* Test Item Value Reference Range Interpretation Comments WHITE BLOOD CELL (test code = WBC) 47.1 K/mm3 4.5-12.5 H RESULT VERIFIED BY REPEAT ANALYSISHas "Path Review" been performed on patient's currentadmission?If yes, please insert path review specimen here If not, please order "Path Review" for the followingcriteria:1/ WBC count over 40,000/mm3 or below 2,000/mm32/ Platelet counts over 1,000,000/mm3, or below 10,000/mm3, or with abnormal morphology.3/ Abnormal red cell morphology or inclusions which are se miguel (> 3+) , widespread, or difficult to classify.4/ Abnormal white blood cell morphology: Blasts present in peripheral blood of any patient as a new finding. Abnormal cells suspected of being blasts. Patients with large numbers of immature cells in peripheral blood. Unusual cells or cells not easily classified in peripheral blood.5/ Any smear in which the technologist is uncertain of the classification or the disease. RED BLOOD CELL (test code = RBC) 3.08 mill/mm3 3.7-5.2 L HEMOGLOBIN (test code = HGB) 9.1 gram/dL 11.5-15.5 L HEMATOCRIT (test code = HCT) 29.4 % 36.0-46.0 L MEAN CELL VOLUME (test code = MCV) 95.5 fL 80-98 N MEAN CELL HGB (test code = MCH) 29.5 picogram 27.0-33.0 N MEAN CELL HGB CONCETRATION (test code = MCHC) 31.0 gram/dL 33.0-36. 0 L RED CELL DISTRIBUTION WIDTH (test code = RDW) 13.8 % 11.6-16. 2 N RED CELL DISTRIBUTION WIDTH SD (test code = RDW-SD) 47.8 fL 37 .0-51.0 N PLATELET COUNT (test code = PLT) 411 K/mm3 150-450 RESULT VERIFIED BY REPEAT ANALYSIS MEAN PLATELET VOLUME (test code = MPV) 12.1 fL 6.7-11.0 H IMMATURE GRANULOCYTE % (test code = IG%) 2.7 % 0.0-5.0 N NUCLEATED RBC % (test code = NRBC%) 0.0 % 0-0 N NEUTROPHIL # (test code = NT#) 44.50 K/mm3 1.8-7.7 H IMMATURE GRANULOCYTE # (test code = IG#) 1.26 x10 3/uL 0-0.03 H LYMPHOCYTE # (test code = LY#) 0.74 K/mm3 1.0-5.0 L MONOCYTE # (test code = MO#) 0.44 K/mm3 0-0.8 N EOSINOPHIL # (test code = EO#) 0.00 K/mm3 0.0-0.5 N BASOPHIL # (test code = BA#) 0.13 K/mm3 0.0-0.2 N NUCLEATED RBC # (test code = NRBC#) 0.00 K/mm3 0.0-0.1 N MANUAL DIFF REQUIRED (test code = MDIFF) YES STAIN ACCEPTABILITY (test code = STN ACCEPTABLE) TOTAL CELLS COUNTED (test code = TCC) #CELLS SEGMENTED NEUTROPHILS (test code = SEG) % 39-69 LYMPHOCYTE (test code = LYMPH) % 25-55 MONOCYTE (test code = MON) % 0-10 EOSINOPHIL (test code = EOS) % 0.0-5.0 MORPHOLOGY COMMENT (test code = MOC) PLATELET ESTIMATE (test code = PLTEST) PLATELET MORPHOLOGY (test code = PLTMORPH) CBC W/MANUAL [id number] 08:03:00* Test Item Value Reference Range Interpretation Comments WHITE BLOOD CELL (test code = WBC) 47.1 K/mm3 4.5-12.5 H RESULT VERIFIED BY REPEAT ANALYSISHas "Path Review" been performed on patient's currentadmission?If yes, please insert path review specimen here If not, please order "Path Review" for the followingcriteria:1/ WBC count over 40,000/mm3 or below 2,000/mm32/ Platelet counts over 1,000,000/mm3, or below 10,000/mm3, or with abnormal morphology.3/ Abnormal red cell morphology or inclusions which are se miguel (> 3+) , widespread, or difficult to classify.4/ Abnormal white blood cell morphology: Blasts present in peripheral blood of any patient as a new finding. Abnormal cells suspected of being blasts. Patients with large numbers of immature cells in peripheral blood. Unusual cells or cells not easily classified in peripheral blood.5/ Any smear in which the technologist is uncertain of the classification or the disease. RED BLOOD CELL (test code = RBC) 3.08 mill/mm3 3.7-5.2 L HEMOGLOBIN (test code = HGB) 9.1 gram/dL 11.5-15.5 L HEMATOCRIT (test code = HCT) 29.4 % 36.0-46.0 L MEAN CELL VOLUME (test code = MCV) 95.5 fL 80-98 N MEAN CELL HGB (test code = MCH) 29.5 picogram 27.0-33.0 N MEAN CELL HGB CONCETRATION (test code = MCHC) 31.0 gram/dL 33.0-36. 0 L RED CELL DISTRIBUTION WIDTH (test code = RDW) 13.8 % 11.6-16. 2 N RED CELL DISTRIBUTION WIDTH SD (test code = RDW-SD) 47.8 fL 37 .0-51.0 N PLATELET COUNT (test code = PLT) 411 K/mm3 150-450 RESULT VERIFIED BY REPEAT ANALYSIS MEAN PLATELET VOLUME (test code = MPV) 12.1 fL 6.7-11.0 H IMMATURE GRANULOCYTE % (test code = IG%) 2.7 % 0.0-5.0 N NUCLEATED RBC % (test code = NRBC%) 0.0 % 0-0 N NEUTROPHIL # (test code = NT#) 44.50 K/mm3 1.8-7.7 H IMMATURE GRANULOCYTE # (test code = IG#) 1.26 x10 3/uL 0-0.03 H LYMPHOCYTE # (test code = LY#) 0.74 K/mm3 1.0-5.0 L MONOCYTE # (test code = MO#) 0.44 K/mm3 0-0.8 N EOSINOPHIL # (test code = EO#) 0.00 K/mm3 0.0-0.5 N BASOPHIL # (test code = BA#) 0.13 K/mm3 0.0-0.2 N NUCLEATED RBC # (test code = NRBC#) 0.00 K/mm3 0.0-0.1 N MANUAL DIFF REQUIRED (test code = MDIFF) YES STAIN ACCEPTABILITY (test code = STN ACCEPTABLE) TOTAL CELLS COUNTED (test code = TCC) #CELLS SEGMENTED NEUTROPHILS (test code = SEG) % 39-69 LYMPHOCYTE (test code = LYMPH) % 25-55 MONOCYTE (test code = MON) % 0-10 MORPHOLOGY COMMENT (test code = MOC) PLATELET ESTIMATE (test code = PLTEST) PLATELET MORPHOLOGY (test code = PLTMORPH) CBC W/MANUAL [id number] 08:03:00* Test Item Value Reference Range Interpretation Comments WHITE BLOOD CELL (test code = WBC) 47.1 K/mm3 4.5-12.5 H RESULT VERIFIED BY REPEAT ANALYSISHas "Path Review" been performed on patient's currentadmission?If yes, please insert path review specimen here If not, please order "Path Review" for the followingcriteria:1/ WBC count over 40,000/mm3 or below 2,000/mm32/ Platelet counts over 1,000,000/mm3, or below 10,000/mm3, or with abnormal morphology.3/ Abnormal red cell morphology or inclusions which are se miguel (> 3+) , widespread, or difficult to classify.4/ Abnormal white blood cell morphology: Blasts present in peripheral blood of any patient as a new finding. Abnormal cells suspected of being blasts. Patients with large numbers of immature cells in peripheral blood. Unusual cells or cells not easily classified in peripheral blood.5/ Any smear in which the technologist is uncertain of the classification or the disease. RED BLOOD CELL (test code = RBC) 3.08 mill/mm3 3.7-5.2 L HEMOGLOBIN (test code = HGB) 9.1 gram/dL 11.5-15.5 L HEMATOCRIT (test code = HCT) 29.4 % 36.0-46.0 L MEAN CELL VOLUME (test code = MCV) 95.5 fL 80-98 N MEAN CELL HGB (test code = MCH) 29.5 picogram 27.0-33.0 N MEAN CELL HGB CONCETRATION (test code = MCHC) 31.0 gram/dL 33.0-36. 0 L RED CELL DISTRIBUTION WIDTH (test code = RDW) 13.8 % 11.6-16. 2 N RED CELL DISTRIBUTION WIDTH SD (test code = RDW-SD) 47.8 fL 37 .0-51.0 N PLATELET COUNT (test code = PLT) 411 K/mm3 150-450 RESULT VERIFIED BY REPEAT ANALYSIS MEAN PLATELET VOLUME (test code = MPV) 12.1 fL 6.7-11.0 H IMMATURE GRANULOCYTE % (test code = IG%) 2.7 % 0.0-5.0 N NUCLEATED RBC % (test code = NRBC%) 0.0 % 0-0 N NEUTROPHIL # (test code = NT#) 44.50 K/mm3 1.8-7.7 H IMMATURE GRANULOCYTE # (test code = IG#) 1.26 x10 3/uL 0-0.03 H LYMPHOCYTE # (test code = LY#) 0.74 K/mm3 1.0-5.0 L MONOCYTE # (test code = MO#) 0.44 K/mm3 0-0.8 N EOSINOPHIL # (test code = EO#) 0.00 K/mm3 0.0-0.5 N BASOPHIL # (test code = BA#) 0.13 K/mm3 0.0-0.2 N NUCLEATED RBC # (test code = NRBC#) 0.00 K/mm3 0.0-0.1 N MANUAL DIFF REQUIRED (test code = MDIFF) YES STAIN ACCEPTABILITY (test code = STN ACCEPTABLE) TOTAL CELLS COUNTED (test code = TCC) #CELLS SEGMENTED NEUTROPHILS (test code = SEG) % 39-69 LYMPHOCYTE (test code = LYMPH) % 25-55 MONOCYTE (test code = MON) % 0-10 EOSINOPHIL (test code = EOS) % 0.0-5.0 CABOT RINGS (test code = CAB) MORPHOLOGY COMMENT (test code = MOC) PLATELET ESTIMATE (test code = PLTEST) PLATELET MORPHOLOGY (test code = PLTMORPH) [id number] 06:47:00* Test Item Value Reference Range Interpretation Comments GLUBED (test code = GLUBED) 286 mg/dL 74-106 H [facility] [id number] 06:29:00* Test Item Value Reference Range Interpretation Comments GLUBED (test code = GLUBED) 323 mg/dL 74-106 H [facility] [id number] 18:41:00* Test Item Value Reference Range Interpretation Comments GLUBED (test code = GLUBED) 379 mg/dL 74-106 H Performed by certified carousel operator at [facility] ARTERIAL BLOOD [id number] 16:55:00* Test Item Value Reference Range Interpretation Comments ARTERIAL BLOOD GAS PH (test code = PHA) 7.36 7.35-7.45 N ARTERIAL BLOOD GAS PCO2 (test code = PCO2A) 42.9 mm Hg 35-45 N ARTERIAL BLOOD GAS PO2 (test code = PO2A) 68.0 mmHg 80-100 L BICARBONATE TOTAL HCO3 (test code = HCO3) 23.9 mmol/L 23.0-27.0 N BASE EXCESS (test code = TONIA) -1.5 mmol/L -3.0-5.0 N ABG O2 SATURATION (test code = SATA) 92.5 % 90.0-98.0 N ABG TYPE (test code = TYPEA) Arterial FIO2 (test code = FIO2A) 32.0 ABG SITE (test code = SITEA) Lt RADIAL ARTERY MODIFIED ALLENS (test code = MODALL) Unable CHECK PERFORMED HEMATOCRIT (test code = HCT/ABG) 27 % 35-47 L TOTAL HGB (test code = THB) 9.3 gram/dL 11.5-15.5 L HGB O2 SAT (test code = HBOSAT) 91.9 % 94.00-98.00 L CARBOXYHEMOGLOBIN (test code = HOHGBT) 0.2 %totalHg 0.5-1.5 LL Results called to and read back by Amina 16:54 - 06/16/2019; by [place] METHEMOGLOBIN (test code = METHGB) 0.5 % 0.0-1.50 N O2 CONTENT (test code = O2CT) 12.1 % vol 18.0-22.0 L LACTIC [id number] 12:35:00* Test Item Value Reference Range Interpretation Comments LACTIC ACID (test code = LACT) 1.4 mmol/L 0.4-1.9 N B-TYPE NATRIURETIC [id number] 09:42:00* Test Item Value Reference Range Interpretation Comments B-TYPE NATRIURETIC PEPTIDE (test code = BNP) 52.05 pgram/mL 0-100 N CBC W/MANUAL [id number] 09:34:00* Test Item Value Reference Range Interpretation Comments WHITE BLOOD CELL (test code = WBC) 32.5 K/mm3 4.5-12.5 H RED BLOOD CELL (test code = RBC) 3.42 mill/mm3 3.7-5.2 L HEMOGLOBIN (test code = HGB) 10.3 gram/dL 11.5-15.5 L HEMATOCRIT (test code = HCT) 32.8 % 36.0-46.0 L MEAN CELL VOLUME (test code = MCV) 95.9 fL 80-98 N MEAN CELL HGB (test code = MCH) 30.1 picogram 27.0-33.0 N MEAN CELL HGB CONCETRATION (test code = MCHC) 31.4 gram/dL 33.0-36. 0 L RED CELL DISTRIBUTION WIDTH (test code = RDW) 13.9 % 11.6-16. 2 N RED CELL DISTRIBUTION WIDTH SD (test code = RDW-SD) 48.8 fL 37 .0-51.0 N PLATELET COUNT (test code = PLT) 486 K/mm3 150-450 H MEAN PLATELET VOLUME (test code = MPV) 12.0 fL 6.7-11.0 H IMMATURE GRANULOCYTE % (test code = IG%) 1.1 % 0.0-5.0 N NUCLEATED RBC % (test code = NRBC%) 0.0 % 0-0 N NEUTROPHIL # (test code = NT#) 30.05 K/mm3 1.8-7.7 H IMMATURE GRANULOCYTE # (test code = IG#) 0.36 x10 3/uL 0-0.03 H LYMPHOCYTE # (test code = LY#) 1.35 K/mm3 1.0-5.0 N MONOCYTE # (test code = MO#) 0.58 K/mm3 0-0.8 N EOSINOPHIL # (test code = EO#) 0.06 K/mm3 0.0-0.5 N BASOPHIL # (test code = BA#) 0.13 K/mm3 0.0-0.2 N NUCLEATED RBC # (test code = NRBC#) 0.00 K/mm3 0.0-0.1 N MANUAL DIFF REQUIRED (test code = MDIFF) YES STAIN ACCEPTABILITY (test code = STN ACCEPTABLE) STAIN ACCEPTABLE TOTAL CELLS COUNTED (test code = TCC) 115 #CELLS SEGMENTED NEUTROPHILS (test code = SEG) 93.1 % 39-69 H BAND NEUTROPHIL (test code = BAND) 1.7 % 0-10 N LYMPHOCYTE (test code = LYMPH) 5.2 % 25-55 L REACTIVE LYMPH (test code = RELYMPH) 0 % MONOCYTE (test code = MON) 0 % 0-10 N EOSINOPHIL (test code = EOS) 0 % 0.0-5.0 N BASOPHIL (test code = BASO) 0 % 0-1.0 N METAMYELOCYTE (test code = META) 0 % 0-0 N MYELOCYTE (test code = MYELO) 0 % 0.0-0.0 N PROMYELOCYTE (test code = PROM) 0 % 0-0 N POLYCHROMASIA (test code = POLC) 1+ ANISOCYTOSIS (test code = ANISO) 1+ PLATELET ESTIMATE (test code = PLTEST) INCREASED PLATELET MORPHOLOGY (test code = PLTMORPH) SIZE VARIABLE IMMATURE FORMS (test code = IMMAT) 0 % 0-0 N LACTIC [id number] 09:26:00* Test Item Value Reference Range Interpretation Comments LACTIC ACID (test code = LACT) 2.3 mmol/L 0.4-1.9 HH Results called to [id number] by V.LABFAUSTO 06/16/19 [id number] results verified and read back by Nurse? Y BASIC METABOLIC [id number] 09:26:00* Test Item Value Reference Range Interpretation Comments SODIUM (test code = NA) 140 mmol/L 136-145 N POTASSIUM (test code = K) 3.9 mmol/L 3.5-5.1 N CHLORIDE (test code = CL) 105.0 mmol/L 98-107 N CARBON DIOXIDE (test code = CO2) 27.0 mmol/L 21-32 N ANION GAP (test code = GAP) 11.9 10-20 N GLUCOSE (test code = GLU) 333 mg/dL 74-106 H BLOOD UREA NITROGEN (test code = BUN) 17 mg/dL 7-18 N GLOMERULAR FILTRATION RATE (test code = GFR) 46 mL/min >=60 Estimated GFR by using Modified MDRD formula.Chronic kidney disease is defined as either kidney damageor GFR <60 mL/min/1.73 m2 for >3 months. CREATININE (test code = CREAT) 1.20 mg/dL 0.55-1.02 H Note change in reference range due to change in reagent. BUN/CREATININE RATIO (test code = BUN/CREA) 14.7 10-20 N CALCIUM (test code = CA) 9.5 mg/dL 8.5-10.1 N HEPATIC FUNCTION [id number] 09:26:00* Test Item Value Reference Range Interpretation Comments TOTAL PROTEIN (test code = PROT) 8.2 gram/dL 6.4-8.2 N ALBUMIN (test code = ALB) 2.8 g/dL 3.4-5.0 L GLOBULIN (test code = GLOB) 5.4 gram/dL 2.7-4.2 H ALBUMIN/GLOBULIN RATIO (test code = A/G) 0.5 0.75-1.50 L BILIRUBIN TOTAL (test code = BILT) 0.30 mg/dL 0.0-1.0 N BILIRUBIN DIRECT (test code = BILD) 0.11 mg/dL 0.0-0.20 N SGOT/AST (test code = AST) 11 IUnit/L 15-37 L SGPT/ALT (test code = ALT) 11 IUnit/L 12-78 L ALKALINE PHOSPHATASE TOTAL (test code = ALKP) 173 IUnit/L 45-117 H Note change in reference range due to change in reagent. [id number] 09:26:00* Test Item Value Reference Range Interpretation Comments TROPONIN-I (test code = TROPI) <0.015 ng/mL 0-0.045 N PROTHROMBIN [id number] 09:26:00* Test Item Value Reference Range Interpretation Comments PROTHROMBIN TIME PATIENT (test code = PTP) 12.3 seconds 9.0-14.0 N INTERNATIONAL NORMAL RATIO (test code = INR) 1.1 0.8-1.2 N The therapeutic range for oral anticoagulant therapy formost indications is an international normalized ratio (INR)of between 2.0 and 3.0. The recommended therapeutic INRrange for various clinical situations is listed below: Clinical Situation INR range Pulmonary e mbolism treatment (2.0-3.0)Venous thrombosis treatmentVenous thrombosis prophylaxis (high risk surgery)Prevention of systemic embolism from: Acute myocardial infarction Valvular heart disease Atrial fibrillation Mechanical prosthetic heart valves (2.5-3.5) IS PATIENT ON ANTICOAGULANTS? NTHROMBOPLASTIN TIME [id number] 09:26:00* Test Item Value Reference Range Interpretation Comments THROMBOPLASTIN TIME PARTIAL (test code = PTT) 36.8 seconds 25.0-36. 5 H IS PATIENT ON ANTICOAGULANTS? NBASIC METABOLIC [id number] 09:13:00* Test Item Value Reference Range Interpretation Comments SODIUM (test code = NA) 140 mmol/L 136-145 N POTASSIUM (test code = K) 3.9 mmol/L 3.5-5.1 N CHLORIDE (test code = CL) 105.0 mmol/L 98-107 N CARBON DIOXIDE (test code = CO2) mmol/L 21-32 ANION GAP (test code = GAP) 10-20 GLUCOSE (test code = GLU) mg/dL 74-106 BLOOD UREA NITROGEN (test code = BUN) mg/dL 7-18 GLOMERULAR FILTRATION RATE (test code = GFR) mL/min >=60 CREATININE (test code = CREAT) mg/dL 0.55-1.02 BUN/CREATININE RATIO (test code = BUN/CREA) 10-20 CALCIUM (test code = CA) mg/dL 8.5-10.1 HEPATIC FUNCTION [id number] 09:13:00* Test Item Value Reference Range Interpretation Comments TOTAL PROTEIN (test code = PROT) gram/dL 6.4-8.2 ALBUMIN (test code = ALB) g/dL 3.4-5.0 GLOBULIN (test code = GLOB) gram/dL 2.7-4.2 ALBUMIN/GLOBULIN RATIO (test code = A/G) 0.75-1.50 BILIRUBIN TOTAL (test code = BILT) mg/dL 0.0-1.0 BILIRUBIN DIRECT (test code = BILD) mg/dL 0.0-0.20 SGOT/AST (test code = AST) IUnit/L 15-37 SGPT/ALT (test code = ALT) IUnit/L 12-78 ALKALINE PHOSPHATASE TOTAL (test code = ALKP) IUnit/L 45-117 [id number] 09:13:00* Test Item Value Reference Range Interpretation Comments TROPONIN-I (test code = TROPI) ng/mL 0-0.045 CBC W/MANUAL [id number] 09:09:00* Test Item Value Reference Range Interpretation Comments WHITE BLOOD CELL (test code = WBC) 32.5 K/mm3 4.5-12.5 H RED BLOOD CELL (test code = RBC) 3.42 mill/mm3 3.7-5.2 L HEMOGLOBIN (test code = HGB) 10.3 gram/dL 11.5-15.5 L HEMATOCRIT (test code = HCT) 32.8 % 36.0-46.0 L MEAN CELL VOLUME (test code = MCV) 95.9 fL 80-98 N MEAN CELL HGB (test code = MCH) 30.1 picogram 27.0-33.0 N MEAN CELL HGB CONCETRATION (test code = MCHC) 31.4 gram/dL 33.0-36. 0 L RED CELL DISTRIBUTION WIDTH (test code = RDW) 13.9 % 11.6-16. 2 N RED CELL DISTRIBUTION WIDTH SD (test code = RDW-SD) 48.8 fL 37 .0-51.0 N PLATELET COUNT (test code = PLT) 486 K/mm3 150-450 H MEAN PLATELET VOLUME (test code = MPV) 12.0 fL 6.7-11.0 H IMMATURE GRANULOCYTE % (test code = IG%) 1.1 % 0.0-5.0 N NUCLEATED RBC % (test code = NRBC%) 0.0 % 0-0 N NEUTROPHIL # (test code = NT#) 30.05 K/mm3 1.8-7.7 H IMMATURE GRANULOCYTE # (test code = IG#) 0.36 x10 3/uL 0-0.03 H LYMPHOCYTE # (test code = LY#) 1.35 K/mm3 1.0-5.0 N MONOCYTE # (test code = MO#) 0.58 K/mm3 0-0.8 N EOSINOPHIL # (test code = EO#) 0.06 K/mm3 0.0-0.5 N BASOPHIL # (test code = BA#) 0.13 K/mm3 0.0-0.2 N NUCLEATED RBC # (test code = NRBC#) 0.00 K/mm3 0.0-0.1 N MANUAL DIFF REQUIRED (test code = MDIFF) YES STAIN ACCEPTABILITY (test code = STN ACCEPTABLE) TOTAL CELLS COUNTED (test code = TCC) #CELLS SEGMENTED NEUTROPHILS (test code = SEG) % 39-69 LYMPHOCYTE (test code = LYMPH) % 25-55 MONOCYTE (test code = MON) % 0-10 EOSINOPHIL (test code = EOS) % 0.0-5.0 CABOT RINGS (test code = CAB) MORPHOLOGY COMMENT (test code = MOC) PLATELET ESTIMATE (test code = PLTEST) PLATELET MORPHOLOGY (test code = PLTMORPH) CBC W/MANUAL [id number] 09:09:00* Test Item Value Reference Range Interpretation Comments WHITE BLOOD CELL (test code = WBC) 32.5 K/mm3 4.5-12.5 H RED BLOOD CELL (test code = RBC) 3.42 mill/mm3 3.7-5.2 L HEMOGLOBIN (test code = HGB) 10.3 gram/dL 11.5-15.5 L HEMATOCRIT (test code = HCT) 32.8 % 36.0-46.0 L MEAN CELL VOLUME (test code = MCV) 95.9 fL 80-98 N MEAN CELL HGB (test code = MCH) 30.1 picogram 27.0-33.0 N MEAN CELL HGB CONCETRATION (test code = MCHC) 31.4 gram/dL 33.0-36. 0 L RED CELL DISTRIBUTION WIDTH (test code = RDW) 13.9 % 11.6-16. 2 N RED CELL DISTRIBUTION WIDTH SD (test code = RDW-SD) 48.8 fL 37 .0-51.0 N PLATELET COUNT (test code = PLT) 486 K/mm3 150-450 H MEAN PLATELET VOLUME (test code = MPV) 12.0 fL 6.7-11.0 H IMMATURE GRANULOCYTE % (test code = IG%) 1.1 % 0.0-5.0 N NUCLEATED RBC % (test code = NRBC%) 0.0 % 0-0 N NEUTROPHIL # (test code = NT#) 30.05 K/mm3 1.8-7.7 H IMMATURE GRANULOCYTE # (test code = IG#) 0.36 x10 3/uL 0-0.03 H LYMPHOCYTE # (test code = LY#) 1.35 K/mm3 1.0-5.0 N MONOCYTE # (test code = MO#) 0.58 K/mm3 0-0.8 N EOSINOPHIL # (test code = EO#) 0.06 K/mm3 0.0-0.5 N BASOPHIL # (test code = BA#) 0.13 K/mm3 0.0-0.2 N NUCLEATED RBC # (test code = NRBC#) 0.00 K/mm3 0.0-0.1 N MANUAL DIFF REQUIRED (test code = MDIFF) YES STAIN ACCEPTABILITY (test code = STN ACCEPTABLE) TOTAL CELLS COUNTED (test code = TCC) #CELLS SEGMENTED NEUTROPHILS (test code = SEG) % 39-69 LYMPHOCYTE (test code = LYMPH) % 25-55 MONOCYTE (test code = MON) % 0-10 EOSINOPHIL (test code = EOS) % 0.0-5.0 MORPHOLOGY COMMENT (test code = MOC) PLATELET ESTIMATE (test code = PLTEST) PLATELET MORPHOLOGY (test code = PLTMORPH) CBC W/MANUAL [id number] 09:09:00* Test Item Value Reference Range Interpretation Comments WHITE BLOOD CELL (test code = WBC) 32.5 K/mm3 4.5-12.5 H RED BLOOD CELL (test code = RBC) 3.42 mill/mm3 3.7-5.2 L HEMOGLOBIN (test code = HGB) 10.3 gram/dL 11.5-15.5 L HEMATOCRIT (test code = HCT) 32.8 % 36.0-46.0 L MEAN CELL VOLUME (test code = MCV) 95.9 fL 80-98 N MEAN CELL HGB (test code = MCH) 30.1 picogram 27.0-33.0 N MEAN CELL HGB CONCETRATION (test code = MCHC) 31.4 gram/dL 33.0-36. 0 L RED CELL DISTRIBUTION WIDTH (test code = RDW) 13.9 % 11.6-16. 2 N RED CELL DISTRIBUTION WIDTH SD (test code = RDW-SD) 48.8 fL 37 .0-51.0 N PLATELET COUNT (test code = PLT) 486 K/mm3 150-450 H MEAN PLATELET VOLUME (test code = MPV) 12.0 fL 6.7-11.0 H IMMATURE GRANULOCYTE % (test code = IG%) 1.1 % 0.0-5.0 N NUCLEATED RBC % (test code = NRBC%) 0.0 % 0-0 N NEUTROPHIL # (test code = NT#) 30.05 K/mm3 1.8-7.7 H IMMATURE GRANULOCYTE # (test code = IG#) 0.36 x10 3/uL 0-0.03 H LYMPHOCYTE # (test code = LY#) 1.35 K/mm3 1.0-5.0 N MONOCYTE # (test code = MO#) 0.58 K/mm3 0-0.8 N EOSINOPHIL # (test code = EO#) 0.06 K/mm3 0.0-0.5 N BASOPHIL # (test code = BA#) 0.13 K/mm3 0.0-0.2 N NUCLEATED RBC # (test code = NRBC#) 0.00 K/mm3 0.0-0.1 N MANUAL DIFF REQUIRED (test code = MDIFF) YES STAIN ACCEPTABILITY (test code = STN ACCEPTABLE) TOTAL CELLS COUNTED (test code = TCC) #CELLS SEGMENTED NEUTROPHILS (test code = SEG) % 39-69 LYMPHOCYTE (test code = LYMPH) % 25-55 MONOCYTE (test code = MON) % 0-10 MORPHOLOGY COMMENT (test code = MOC) PLATELET ESTIMATE (test code = PLTEST) PLATELET MORPHOLOGY (test code = PLTMORPH) CBC W/MANUAL [id number] 09:08:00* Test Item Value Reference Range Interpretation Comments WHITE BLOOD CELL (test code = WBC) 32.5 K/mm3 4.5-12.5 H RED BLOOD CELL (test code = RBC) 3.42 mill/mm3 3.7-5.2 L HEMOGLOBIN (test code = HGB) 10.3 gram/dL 11.5-15.5 L HEMATOCRIT (test code = HCT) 32.8 % 36.0-46.0 L MEAN CELL VOLUME (test code = MCV) 95.9 fL 80-98 N MEAN CELL HGB (test code = MCH) 30.1 picogram 27.0-33.0 N MEAN CELL HGB CONCETRATION (test code = MCHC) 31.4 gram/dL 33.0-36. 0 L RED CELL DISTRIBUTION WIDTH (test code = RDW) 13.9 % 11.6-16. 2 N RED CELL DISTRIBUTION WIDTH SD (test code = RDW-SD) 48.8 fL 37 .0-51.0 N PLATELET COUNT (test code = PLT) 486 K/mm3 150-450 H MEAN PLATELET VOLUME (test code = MPV) 12.0 fL 6.7-11.0 H IMMATURE GRANULOCYTE % (test code = IG%) 1.1 % 0.0-5.0 N NUCLEATED RBC % (test code = NRBC%) 0.0 % 0-0 N NEUTROPHIL # (test code = NT#) 30.05 K/mm3 1.8-7.7 H IMMATURE GRANULOCYTE # (test code = IG#) 0.36 x10 3/uL 0-0.03 H LYMPHOCYTE # (test code = LY#) 1.35 K/mm3 1.0-5.0 N MONOCYTE # (test code = MO#) 0.58 K/mm3 0-0.8 N EOSINOPHIL # (test code = EO#) 0.06 K/mm3 0.0-0.5 N BASOPHIL # (test code = BA#) 0.13 K/mm3 0.0-0.2 N NUCLEATED RBC # (test code = NRBC#) 0.00 K/mm3 0.0-0.1 N MANUAL DIFF REQUIRED (test code = MDIFF) YES STAIN ACCEPTABILITY (test code = STN ACCEPTABLE) TOTAL CELLS COUNTED (test code = TCC) #CELLS SEGMENTED NEUTROPHILS (test code = SEG) % 39-69 LYMPHOCYTE (test code = LYMPH) % 25-55 MONOCYTE (test code = MON) % 0-10 EOSINOPHIL (test code = EOS) % 0.0-5.0 CABOT RINGS (test code = CAB) MORPHOLOGY COMMENT (test code = MOC) PLATELET ESTIMATE (test code = PLTEST) PLATELET MORPHOLOGY (test code = PLTMORPH) CBC W/MANUAL [id number] 09:08:00* Test Item Value Reference Range Interpretation Comments WHITE BLOOD CELL (test code = WBC) 32.5 K/mm3 4.5-12.5 H RED BLOOD CELL (test code = RBC) 3.42 mill/mm3 3.7-5.2 L HEMOGLOBIN (test code = HGB) 10.3 gram/dL 11.5-15.5 L HEMATOCRIT (test code = HCT) 32.8 % 36.0-46.0 L MEAN CELL VOLUME (test code = MCV) 95.9 fL 80-98 N MEAN CELL HGB (test code = MCH) 30.1 picogram 27.0-33.0 N MEAN CELL HGB CONCETRATION (test code = MCHC) 31.4 gram/dL 33.0-36. 0 L RED CELL DISTRIBUTION WIDTH (test code = RDW) 13.9 % 11.6-16. 2 N RED CELL DISTRIBUTION WIDTH SD (test code = RDW-SD) 48.8 fL 37 .0-51.0 N PLATELET COUNT (test code = PLT) 486 K/mm3 150-450 H MEAN PLATELET VOLUME (test code = MPV) 12.0 fL 6.7-11.0 H IMMATURE GRANULOCYTE % (test code = IG%) 1.1 % 0.0-5.0 N NUCLEATED RBC % (test code = NRBC%) 0.0 % 0-0 N NEUTROPHIL # (test code = NT#) 30.05 K/mm3 1.8-7.7 H IMMATURE GRANULOCYTE # (test code = IG#) 0.36 x10 3/uL 0-0.03 H LYMPHOCYTE # (test code = LY#) 1.35 K/mm3 1.0-5.0 N MONOCYTE # (test code = MO#) 0.58 K/mm3 0-0.8 N EOSINOPHIL # (test code = EO#) 0.06 K/mm3 0.0-0.5 N BASOPHIL # (test code = BA#) 0.13 K/mm3 0.0-0.2 N NUCLEATED RBC # (test code = NRBC#) 0.00 K/mm3 0.0-0.1 N MANUAL DIFF REQUIRED (test code = MDIFF) YES STAIN ACCEPTABILITY (test code = STN ACCEPTABLE) TOTAL CELLS COUNTED (test code = TCC) #CELLS SEGMENTED NEUTROPHILS (test code = SEG) % 39-69 LYMPHOCYTE (test code = LYMPH) % 25-55 MONOCYTE (test code = MON) % 0-10 EOSINOPHIL (test code = EOS) % 0.0-5.0 CABOT RINGS (test code = CAB) MORPHOLOGY COMMENT (test code = MOC) PLATELET ESTIMATE (test code = PLTEST) PLATELET MORPHOLOGY (test code = PLTMORPH) - XR CHEST 1 [id number] 08:10:00 FAX: Kevin Bass MD [phone] [place]: St: PRE FAX: Monisha Benz DO Name: DAYANA RICHARDSON [facility] : 1960 Age/S: 59/F [address] [facility] Unit #: [id number] Loc: [facility]SE [facility] [place] [address] Phys: Monisha Benz DO Acct: [id number] Dis Date: Status: PRE ER PHONE #: [phone] Exam Date: 06/16/2019 0804 FAX #: [phone] Reason: CODE SEPSIS EXAMS: CPT CODE: [id number] XR CHEST 1 V 48058 HISTORY: Sepsis. COMPARISON: Chest x-ray from May 27, 2019. Dense left basal infiltrate. Patchy right basal infiltrate. Hyperinflation. Small basilar effusions. Cardiac silhouette is mildly enlarged. IMPRESSION: Dense left basilar patchy bibasal infiltrates with small effusions. at 0810 Report ed and signed by: Telly Arguello M.D. CC: Fredy Veronica MD; Monisha Benz DO Technologist: CAMERON BOONE JR Trnscrd Date/Time/By: 06/16/2019 (0810) : By: [email or web address] Orig Print D/T: S: 06/16/2019 (0813) PAGE 1 Signed Report COMPREHENSIVE METABOLIC [id number] 07:18:00* Test Item Value Reference Range Interpretation Comments SODIUM (test code = NA) 143 mmol/L 136-145 N POTASSIUM (test code = K) 4.0 mmol/L 3.5-5.1 N CHLORIDE (test code = CL) 104.0 mmol/L 98-107 N CARBON DIOXIDE (test code = CO2) 34.0 mmol/L 21-32 H ANION GAP (test code = GAP) 9.0 10-20 L GLUCOSE (test code = GLU) 144 mg/dL 74-106 H BLOOD UREA NITROGEN (test code = BUN) 15 mg/dL 7-18 N GLOMERULAR FILTRATION RATE (test code = GFR) > 60 mL/min >=60 Estimated GFR by using Modified MDRD formula.Chronic kidney disease is defined as either kidney damageor GFR <60 mL/min/1.73 m2 for >3 months. CREATININE (test code = CREAT) 0.70 mg/dL 0.55-1.02 N Note change in reference range due to change in reagent. BUN/CREATININE RATIO (test code = BUN/CREA) 20.7 10-20 H TOTAL PROTEIN (test code = PROT) 5.9 gram/dL 6.4-8.2 L ALBUMIN (test code = ALB) 2.2 g/dL 3.4-5.0 L GLOBULIN (test code = GLOB) 3.7 gram/dL 2.7-4.2 N ALBUMIN/GLOBULIN RATIO (test code = A/G) 0.6 0.75-1.50 L CALCIUM (test code = CA) 8.9 mg/dL 8.5-10.1 N BILIRUBIN TOTAL (test code = BILT) 0.10 mg/dL 0.0-1.0 N SGOT/AST (test code = AST) 9 IUnit/L 15-37 L SGPT/ALT (test code = ALT) 14 IUnit/L 12-78 N ALKALINE PHOSPHATASE TOTAL (test code = ALKP) 114 IUnit/L 45-117 N Note change in reference range due to change in reagent. COMPREHENSIVE METABOLIC [id number] 07:07:00* Test Item Value Reference Range Interpretation Comments SODIUM (test code = NA) 143 mmol/L 136-145 N POTASSIUM (test code = K) 4.0 mmol/L 3.5-5.1 N CHLORIDE (test code = CL) 104.0 mmol/L 98-107 N CARBON DIOXIDE (test code = CO2) mmol/L 21-32 ANION GAP (test code = GAP) 10-20 GLUCOSE (test code = GLU) mg/dL 74-106 BLOOD UREA NITROGEN (test code = BUN) mg/dL 7-18 GLOMERULAR FILTRATION RATE (test code = GFR) mL/min >=60 CREATININE (test code = CREAT) mg/dL 0.55-1.02 BUN/CREATININE RATIO (test code = BUN/CREA) 10-20 TOTAL PROTEIN (test code = PROT) gram/dL 6.4-8.2 ALBUMIN (test code = ALB) g/dL 3.4-5.0 GLOBULIN (test code = GLOB) gram/dL 2.7-4.2 ALBUMIN/GLOBULIN RATIO (test code = A/G) 0.75-1.50 CALCIUM (test code = CA) mg/dL 8.5-10.1 BILIRUBIN TOTAL (test code = BILT) mg/dL 0.0-1.0 SGOT/AST (test code = AST) IUnit/L 15-37 SGPT/ALT (test code = ALT) IUnit/L 12-78 ALKALINE PHOSPHATASE TOTAL (test code = ALKP) IUnit/L 45-117 [id number] 06:59:00* Test Item Value Reference Range Interpretation Comments GLUBED (test code = GLUBED) 133 mg/dL 74-106 H [facility] CBC W/AUTO [id number] 06:41:00* Test Item Value Reference Range Interpretation Comments WHITE BLOOD CELL (test code = WBC) 12.2 K/mm3 4.5-12.5 N RED BLOOD CELL (test code = RBC) 2.78 mill/mm3 3.7-5.2 L HEMOGLOBIN (test code = HGB) 8.5 gram/dL 11.5-15.5 L HEMATOCRIT (test code = HCT) 26.7 % 36.0-46.0 L MEAN CELL VOLUME (test code = MCV) 96.0 fL 80-98 N MEAN CELL HGB (test code = MCH) 30.6 picogram 27.0-33.0 N MEAN CELL HGB CONCETRATION (test code = MCHC) 31.8 gram/dL 33.0-36. 0 L RED CELL DISTRIBUTION WIDTH (test code = RDW) 13.6 % 11.6-16. 2 N RED CELL DISTRIBUTION WIDTH SD (test code = RDW-SD) 47.8 fL 37 .0-51.0 N PLATELET COUNT (test code = PLT) 322 K/mm3 150-450 N MEAN PLATELET VOLUME (test code = MPV) 11.8 fL 6.7-11.0 H NEUTROPHIL % (test code = NT%) 61.5 % 39.0-69.0 N IMMATURE GRANULOCYTE % (test code = IG%) 2.5 % 0.0-5.0 N LYMPHOCYTE % (test code = LY%) 25.0 % 25.0-55.0 N MONOCYTE % (test code = MO%) 10.1 % 0.0-10.0 H EOSINOPHIL % (test code = EO%) 0.7 % 0.0-5.0 N BASOPHIL % (test code = BA%) 0.2 % 0.0-1.0 N NUCLEATED RBC % (test code = NRBC%) 0.0 % 0-0 N NEUTROPHIL # (test code = NT#) 7.52 K/mm3 1.8-7.7 N IMMATURE GRANULOCYTE # (test code = IG#) 0.30 x10 3/uL 0-0.03 H LYMPHOCYTE # (test code = LY#) 3.05 K/mm3 1.0-5.0 N MONOCYTE # (test code = MO#) 1.23 K/mm3 0-0.8 H EOSINOPHIL # (test code = EO#) 0.09 K/mm3 0.0-0.5 N BASOPHIL # (test code = BA#) 0.03 K/mm3 0.0-0.2 N NUCLEATED RBC # (test code = NRBC#) 0.00 K/mm3 0.0-0.1 N [id number] 20:49:00* Test Item Value Reference Range Interpretation Comments GLUBED (test code = GLUBED) 318 mg/dL 74-106 H [facility] by certified car[facility] [id number] 17:20:00* Test Item Value Reference Range Interpretation Comments GLUBED (test code = GLUBED) 296 mg/dL 74-106 H Performed by certified carousel operator at [facility] COMPREHENSIVE METABOLIC [id number] 15:57:00* Test Item Value Reference Range Interpretation Comments SODIUM (test code = NA) 141 mmol/L 136-145 N POTASSIUM (test code = K) 4.6 mmol/L 3.5-5.1 N CHLORIDE (test code = CL) 103.0 mmol/L 98-107 N CARBON DIOXIDE (test code = CO2) 28.0 mmol/L 21-32 N ANION GAP (test code = GAP) 14.6 10-20 N GLUCOSE (test code = GLU) 232 mg/dL 74-106 H BLOOD UREA NITROGEN (test code = BUN) 15 mg/dL 7-18 N GLOMERULAR FILTRATION RATE (test code = GFR) 57 mL/min >=60 Estimated GFR by using Modified MDRD formula.Chronic kidney disease is defined as either kidney damageor GFR <60 mL/min/1.73 m2 for >3 months. CREATININE (test code = CREAT) 1.00 mg/dL 0.55-1.02 N Note change in reference range due to change in reagent. BUN/CREATININE RATIO (test code = BUN/CREA) 15.7 10-20 N TOTAL PROTEIN (test code = PROT) 5.7 gram/dL 6.4-8.2 L ALBUMIN (test code = ALB) 2.6 g/dL 3.4-5.0 L GLOBULIN (test code = GLOB) 3.1 gram/dL 2.7-4.2 N ALBUMIN/GLOBULIN RATIO (test code = A/G) 0.8 0.75-1.50 N CALCIUM (test code = CA) 9.5 mg/dL 8.5-10.1 N BILIRUBIN TOTAL (test code = BILT) 0.10 mg/dL 0.0-1.0 N SGOT/AST (test code = AST) 11 IUnit/L 15-37 L SGPT/ALT (test code = ALT) 15 IUnit/L 12-78 N ALKALINE PHOSPHATASE TOTAL (test code = ALKP) 140 IUnit/L 45-117 H Note change in reference range due to change in reagent. PT REFUSED QUIRINO BRADSHAW [id number] IS AWARE @0438 V.LAB.JS110/04/10 0627COMPREHENSIVE METABOLIC [id number] 15:46:00* Test Item Value Reference Range Interpretation Comments SODIUM (test code = NA) 141 mmol/L 136-145 N POTASSIUM (test code = K) 4.6 mmol/L 3.5-5.1 N CHLORIDE (test code = CL) 103.0 mmol/L 98-107 N CARBON DIOXIDE (test code = CO2) mmol/L 21-32 ANION GAP (test code = GAP) 10-20 GLUCOSE (test code = GLU) mg/dL 74-106 BLOOD UREA NITROGEN (test code = BUN) mg/dL 7-18 GLOMERULAR FILTRATION RATE (test code = GFR) mL/min >=60 CREATININE (test code = CREAT) mg/dL 0.55-1.02 BUN/CREATININE RATIO (test code = BUN/CREA) 10-20 TOTAL PROTEIN (test code = PROT) gram/dL 6.4-8.2 ALBUMIN (test code = ALB) g/dL 3.4-5.0 GLOBULIN (test code = GLOB) gram/dL 2.7-4.2 ALBUMIN/GLOBULIN RATIO (test code = A/G) 0.75-1.50 CALCIUM (test code = CA) mg/dL 8.5-10.1 BILIRUBIN TOTAL (test code = BILT) mg/dL 0.0-1.0 SGOT/AST (test code = AST) IUnit/L 15-37 SGPT/ALT (test code = ALT) IUnit/L 12-78 ALKALINE PHOSPHATASE TOTAL (test code = ALKP) IUnit/L 45-117 PT REFUSED QUIRINO BRADSHAW [id number] IS AWARE @0438 V.LAB.JS110/04/10 0627CBC W/AUTO [id number] 15:22:00* Test Item Value Reference Range Interpretation Comments WHITE BLOOD CELL (test code = WBC) 17.3 K/mm3 4.5-12.5 H RED BLOOD CELL (test code = RBC) 3.07 mill/mm3 3.7-5.2 L HEMOGLOBIN (test code = HGB) 9.4 gram/dL 11.5-15.5 L HEMATOCRIT (test code = HCT) 29.5 % 36.0-46.0 L MEAN CELL VOLUME (test code = MCV) 96.1 fL 80-98 N MEAN CELL HGB (test code = MCH) 30.6 picogram 27.0-33.0 N MEAN CELL HGB CONCETRATION (test code = MCHC) 31.9 gram/dL 33.0-36. 0 L RED CELL DISTRIBUTION WIDTH (test code = RDW) 13.7 % 11.6-16. 2 N RED CELL DISTRIBUTION WIDTH SD (test code = RDW-SD) 47.7 fL 37 .0-51.0 N PLATELET COUNT (test code = PLT) 316 K/mm3 150-450 N MEAN PLATELET VOLUME (test code = MPV) 11.6 fL 6.7-11.0 H NEUTROPHIL % (test code = NT%) 80.5 % 39.0-69.0 H IMMATURE GRANULOCYTE % (test code = IG%) 2.7 % 0.0-5.0 N LYMPHOCYTE % (test code = LY%) 8.8 % 25.0-55.0 L MONOCYTE % (test code = MO%) 7.4 % 0.0-10.0 N EOSINOPHIL % (test code = EO%) 0.3 % 0.0-5.0 N BASOPHIL % (test code = BA%) 0.3 % 0.0-1.0 N NUCLEATED RBC % (test code = NRBC%) 0.0 % 0-0 N NEUTROPHIL # (test code = NT#) 13.88 K/mm3 1.8-7.7 H IMMATURE GRANULOCYTE # (test code = IG#) 0.46 x10 3/uL 0-0.03 H LYMPHOCYTE # (test code = LY#) 1.52 K/mm3 1.0-5.0 N MONOCYTE # (test code = MO#) 1.28 K/mm3 0-0.8 H EOSINOPHIL # (test code = EO#) 0.05 K/mm3 0.0-0.5 N BASOPHIL # (test code = BA#) 0.06 K/mm3 0.0-0.2 N NUCLEATED RBC # (test code = NRBC#) 0.00 K/mm3 0.0-0.1 N MANUAL DIFF REQUIRED (test code = MDIFF) NO PT REFUSED QUIRINO BRADSHAW [id number] IS AWARE @0438 V.LAB.JS110/04/10 0628GLUBED 2019-05-30 14:08:00* Test Item Value Reference Range Interpretation Comments GLUBED (test code = GLUBED) 196 mg/dL 74-106 H Performed by certified carousel operator at [facility] [id number] 05:37:00* Test Item Value Reference Range Interpretation Comments GLUBED (test code = GLUBED) 167 mg/dL 74-106 H Performed by certified carousel operator at [facility] AB MYCOPLASMA [id number] 01:06:00* Test Item Value Reference Range Interpretation Comments AB MYCOPLAS PNEUMONIAE IGM EIA (test code = MYCOMABEIA) <770 U/mL 0-769 Negative <770Clinically significant amount of M. pneumoniae antibodynot detected. Low Positive 770 - 950M. pneumoniae specific IgM presumptively detected. Itis recommended that another sample be collected 1-2weeks later to assure reactivity. Positive >950Highly significant amount of M. p neumoniae specificIgM antibody detected.Performed At: [address] [id number] Sanjai MD Ph:[phone] Negative <770 Clinically significant amount of M.pneumoniae antibody not detected. Low Positive 770 - 950 M. pneumoniae specific IgM presumptively detected. It is recommended that another sample be collected 1-2 weeks later to assure reactivity. Positive >950 Highly significant amount of M.pneumoniae specific IgM antibody detected. AB MYCOPLAS PNEUMO IGG EIA (test code = MYCOGABEIA) 189 U/mL 0- 99 A Negative: <100 Indeterminate: 100 - 320 Positive: >320The reference interval established is intended as abaseline only. Values >100 may indicate a recentinfection with Mycoplasma pneumoniae and need to beconfirmed either by a positive IgM result and/or anadditional specimen drawn 2-4 weeks later showing asignificant increase in antibody levels. Negative: <100 Indeterminate: 100 - 320 Positive: >320 [id number] 20:51:00* Test Item Value Reference Range Interpretation Comments GLUBED (test code = GLUBED) 344 mg/dL 74-106 H Performed by certified carousel operator at [facility] [id number] 16:46:00* Test Item Value Reference Range Interpretation Comments GLUBED (test code = GLUBED) 417 mg/dL 74-106 H Performed by certified carousel operator at [facility] [id number] 12:44:00* Test Item Value Reference Range Interpretation Comments GLUBED (test code = GLUBED) 216 mg/dL 74-106 H Performed by certified carousel operator at [facility] - CTA CHEST FOR [id number] 11:10:00 Name: DAYANA RICHARDSON [facility] : 1960 Age/S: 59 / F [facility] Camp[facility] Unit #: [id number] Loc: [place] [address] Phys: Jak Dumont MD Acct: [id number] Dis Date: Status: ADM IN PHONE #: [phone] Exam Date: 05/29/2019 1039 FAX #: [phone] Reason: SOB, PNA EXAMS: CPT CODE: [id number] [place] [id number] HISTORY: Shortness of breath and pneumonia. COMPARISON: Chest x-ray from May 27, 2019. CTA CHEST: 3-D images. 100 mL of Isovue-370. Automated exposure control. No pulmonary embolism. Unremarkable aorta without aneurysm or dissection. Well-opacified SVC and the neck vasculature. Unremarkable thyroid glands. Esophageal wall is mildly thickened. Correlate for esophagitis. No pathologic adenopathy. Cardiac silhouette is mildly enlarged without pericardial effusion. Visualized upper abdomen demonstrate postop changes within the stomach. The subcutaneous tissues and the musculature are unremarkable with mild skin thickening of either breast in the retroareolar location. No lytic or blastic lesions are noted within the bony skeleton. Patchy spiculated infiltrates in the left upper lobe and left lower lobe. Patchy nodular infiltrate in the right upper lobe as well. No effusion or congestion. Dependent changes. IMPRESSION: Patchy nodular/spiculated left lung infiltrate with vague nodular infiltrate as well in the right upper lobe . No effusion or congestion. No pulmonary embolism with unremarkable aor ta. at 1110 Reported and signed by: Telly Arguello M.D. CC: Jak Dumont MD; Kevin Veronica MD Technologist:Tim Durand RT(R),(MR),(CT); CTDI: DLP: Trnscb Date/Time: 05/29/2019 (111 0) [email or web address] Orig Print D/T: S: 05/29/2019 (1113) PA GE 1 Signed Report CBC W/AUTO [id number] 06:28:00* Test Item Value Reference Range Interpretation Comments WHITE BLOOD CELL (test code = WBC) 16.9 K/mm3 4.5-12.5 H RED BLOOD CELL (test code = RBC) 2.86 mill/mm3 3.7-5.2 L HEMOGLOBIN (test code = HGB) 8.8 gram/dL 11.5-15.5 L HEMATOCRIT (test code = HCT) 26.8 % 36.0-46.0 L MEAN CELL VOLUME (test code = MCV) 93.7 fL 80-98 N MEAN CELL HGB (test code = MCH) 30.8 picogram 27.0-33.0 N MEAN CELL HGB CONCETRATION (test code = MCHC) 32.8 gram/dL 33.0-36. 0 L RED CELL DISTRIBUTION WIDTH (test code = RDW) 13.4 % 11.6-16. 2 N RED CELL DISTRIBUTION WIDTH SD (test code = RDW-SD) 45.8 fL 37 .0-51.0 N PLATELET COUNT (test code = PLT) 310 K/mm3 150-450 N MEAN PLATELET VOLUME (test code = MPV) 11.7 fL 6.7-11.0 H NEUTROPHIL % (test code = NT%) 69.8 % 39.0-69.0 H IMMATURE GRANULOCYTE % (test code = IG%) 3.4 % 0.0-5.0 N LYMPHOCYTE % (test code = LY%) 16.1 % 25.0-55.0 L MONOCYTE % (test code = MO%) 9.8 % 0.0-10.0 N EOSINOPHIL % (test code = EO%) 0.7 % 0.0-5.0 N BASOPHIL % (test code = BA%) 0.2 % 0.0-1.0 N NUCLEATED RBC % (test code = NRBC%) 0.0 % 0-0 N NEUTROPHIL # (test code = NT#) 11.80 K/mm3 1.8-7.7 H IMMATURE GRANULOCYTE # (test code = IG#) 0.58 x10 3/uL 0-0.03 H LYMPHOCYTE # (test code = LY#) 2.72 K/mm3 1.0-5.0 N MONOCYTE # (test code = MO#) 1.65 K/mm3 0-0.8 H EOSINOPHIL # (test code = EO#) 0.11 K/mm3 0.0-0.5 N BASOPHIL # (test code = BA#) 0.04 K/mm3 0.0-0.2 N NUCLEATED RBC # (test code = NRBC#) 0.00 K/mm3 0.0-0.1 N MANUAL DIFF REQUIRED (test code = MDIFF) NO BASIC METABOLIC [id number] 06:14:00* Test Item Value Reference Range Interpretation Comments SODIUM (test code = NA) 143 mmol/L 136-145 N POTASSIUM (test code = K) 4.1 mmol/L 3.5-5.1 N CHLORIDE (test code = CL) 108.0 mmol/L 98-107 H CARBON DIOXIDE (test code = CO2) 30.0 mmol/L 21-32 N ANION GAP (test code = GAP) 9.1 10-20 L GLUCOSE (test code = GLU) 140 mg/dL 74-106 H BLOOD UREA NITROGEN (test code = BUN) 17 mg/dL 7-18 N GLOMERULAR FILTRATION RATE (test code = GFR) > 60 mL/min >=60 Estimated GFR by using Modified MDRD formula.Chronic kidney disease is defined as either kidney damageor GFR <60 mL/min/1.73 m2 for >3 months. CREATININE (test code = CREAT) 0.80 mg/dL 0.55-1.02 N Note change in reference range due to change in reagent. BUN/CREATININE RATIO (test code = BUN/CREA) 20.2 10-20 H CALCIUM (test code = CA) 8.8 mg/dL 8.5-10.1 N [id number] 06:14:00* Test Item Value Reference Range Interpretation Comments PHOSPHORUS (test code = PHOS) 3.1 mg/dL 2.5-4.9 N [id number] 06:14:00* Test Item Value Reference Range Interpretation Comments MAGNESIUM (test code = MAG) 1.7 mg/dL 1.8-2.4 L BASIC METABOLIC [id number] 06:08:00* Test Item Value Reference Range Interpretation Comments SODIUM (test code = NA) 143 mmol/L 136-145 N POTASSIUM (test code = K) 4.1 mmol/L 3.5-5.1 N CHLORIDE (test code = CL) 108.0 mmol/L 98-107 H CARBON DIOXIDE (test code = CO2) mmol/L 21-32 ANION GAP (test code = GAP) 10-20 GLUCOSE (test code = GLU) mg/dL 74-106 BLOOD UREA NITROGEN (test code = BUN) mg/dL 7-18 GLOMERULAR FILTRATION RATE (test code = GFR) mL/min >=60 CREATININE (test code = CREAT) mg/dL 0.55-1.02 BUN/CREATININE RATIO (test code = BUN/CREA) 10-20 CALCIUM (test code = CA) mg/dL 8.5-10.1 [id number] 06:08:00* Test Item Value Reference Range Interpretation Comments PHOSPHORUS (test code = PHOS) mg/dL 2.5-4.9 [id number] 06:08:00* Test Item Value Reference Range Interpretation Comments MAGNESIUM (test code = MAG) mg/dL 1.8-2.4 [id number] 05:37:00* Test Item Value Reference Range Interpretation Comments GLUBED (test code = GLUBED) 135 mg/dL 74-106 H Performed by certified carousel operator at [facility] [id number] 20:34:00* Test Item Value Reference Range Interpretation Comments GLUBED (test code = GLUBED) 212 mg/dL 74-106 H Performed by certified carousel operator at [facility] [id number] 18:08:00* Test Item Value Reference Range Interpretation Comments GLUBED (test code = GLUBED) 360 mg/dL 74-106 H Performed by certified carousel operator at [facility] [id number] 16:03:00* Test Item Value Reference Range Interpretation Comments GLUBED (test code = GLUBED) 366 mg/dL 74-106 H Performed by certified carousel operator at [facility] [id number] 10:51:00* Test Item Value Reference Range Interpretation Comments GLUBED (test code = GLUBED) 252 mg/dL 74-106 H Performed by certified carousel operator at [facility] [id number] 08:27:00* Test Item Value Reference Range Interpretation Comments GLUBED (test code = GLUBED) 239 mg/dL 74-106 H Performed by certified carousel operator at [facility] PROTHROMBIN [id number] 05:24:00* Test Item Value Reference Range Interpretation Comments PROTHROMBIN TIME PATIENT (test code = PTP) 12.1 seconds 9.0-14.0 N INTERNATIONAL NORMAL RATIO (test code = INR) 1.0 0.8-1.2 N The therapeutic range for oral anticoagulant therapy formost indications is an international normalized ratio (INR)of between 2.0 and 3.0. The recommended therapeutic INRrange for various clinical situations is listed below: Clinical Situation INR range Pulmonary e mbolism treatment (2.0-3.0)Venous thrombosis treatmentVenous thrombosis prophylaxis (high risk surgery)Prevention of systemic embolism from: Acute myocardial infarction Valvular heart disease Atrial fibrillation Mechanical prosthetic heart valves (2.5-3.5) IS PATIENT ON ANTICOAGULANTS? YLIST ANTICOAGULANTS HEPARINTHROMBOPLASTIN TIME [id number] 05:24:00* Test Item Value Reference Range Interpretation Comments THROMBOPLASTIN TIME PARTIAL (test code = PTT) 25.8 seconds 25.0-36. 5 N IS PATIENT ON ANTICOAGULANTS? YLIST ANTICOAGULANTS HEPARINCOMPREHENSIVE METABOLIC [id number] 04:42:00* Test Item Value Reference Range Interpretation Comments SODIUM (test code = NA) 140 mmol/L 136-145 N POTASSIUM (test code = K) 4.3 mmol/L 3.5-5.1 N CHLORIDE (test code = CL) 106.0 mmol/L 98-107 N CARBON DIOXIDE (test code = CO2) 27.0 mmol/L 21-32 N ANION GAP (test code = GAP) 11.3 10-20 N GLUCOSE (test code = GLU) 249 mg/dL 74-106 H BLOOD UREA NITROGEN (test code = BUN) 19 mg/dL 7-18 H GLOMERULAR FILTRATION RATE (test code = GFR) > 60 mL/min >=60 Estimated GFR by using Modified MDRD formula.Chronic kidney disease is defined as either kidney damageor GFR <60 mL/min/1.73 m2 for >3 months. CREATININE (test code = CREAT) 0.90 mg/dL 0.55-1.02 N Note change in reference range due to change in reagent. BUN/CREATININE RATIO (test code = BUN/CREA) 21.7 10-20 H TOTAL PROTEIN (test code = PROT) 6.0 gram/dL 6.4-8.2 L ALBUMIN (test code = ALB) 2.2 g/dL 3.4-5.0 L GLOBULIN (test code = GLOB) 3.8 gram/dL 2.7-4.2 N ALBUMIN/GLOBULIN RATIO (test code = A/G) 0.6 0.75-1.50 L CALCIUM (test code = CA) 8.4 mg/dL 8.5-10.1 L BILIRUBIN TOTAL (test code = BILT) 0.20 mg/dL 0.0-1.0 N SGOT/AST (test code = AST) 5 IUnit/L 15-37 L SGPT/ALT (test code = ALT) 13 IUnit/L 12-78 N ALKALINE PHOSPHATASE TOTAL (test code = ALKP) 126 IUnit/L 45-117 H Note change in reference range due to change in reagent. [id number] 04:42:00* Test Item Value Reference Range Interpretation Comments PHOSPHORUS (test code = PHOS) 2.8 mg/dL 2.5-4.9 N [id number] 04:42:00* Test Item Value Reference Range Interpretation Comments MAGNESIUM (test code = MAG) 1.6 mg/dL 1.8-2.4 L COMPREHENSIVE METABOLIC [id number] 04:27:00* Test Item Value Reference Range Interpretation Comments SODIUM (test code = NA) 140 mmol/L 136-145 N POTASSIUM (test code = K) 4.3 mmol/L 3.5-5.1 N CHLORIDE (test code = CL) 106.0 mmol/L 98-107 N CARBON DIOXIDE (test code = CO2) mmol/L 21-32 ANION GAP (test code = GAP) 10-20 GLUCOSE (test code = GLU) mg/dL 74-106 BLOOD UREA NITROGEN (test code = BUN) mg/dL 7-18 GLOMERULAR FILTRATION RATE (test code = GFR) mL/min >=60 CREATININE (test code = CREAT) mg/dL 0.55-1.02 BUN/CREATININE RATIO (test code = BUN/CREA) 10-20 TOTAL PROTEIN (test code = PROT) gram/dL 6.4-8.2 ALBUMIN (test code = ALB) g/dL 3.4-5.0 GLOBULIN (test code = GLOB) gram/dL 2.7-4.2 ALBUMIN/GLOBULIN RATIO (test code = A/G) 0.75-1.50 CALCIUM (test code = CA) mg/dL 8.5-10.1 BILIRUBIN TOTAL (test code = BILT) mg/dL 0.0-1.0 SGOT/AST (test code = AST) IUnit/L 15-37 SGPT/ALT (test code = ALT) IUnit/L 12-78 ALKALINE PHOSPHATASE TOTAL (test code = ALKP) IUnit/L 45-117 [id number] 04:27:00* Test Item Value Reference Range Interpretation Comments PHOSPHORUS (test code = PHOS) mg/dL 2.5-4.9 [id number] 04:27:00* Test Item Value Reference Range Interpretation Comments MAGNESIUM (test code = MAG) mg/dL 1.8-2.4 CBC W/AUTO [id number] 04:25:00* Test Item Value Reference Range Interpretation Comments WHITE BLOOD CELL (test code = WBC) 18.2 K/mm3 4.5-12.5 H RED BLOOD CELL (test code = RBC) 2.76 mill/mm3 3.7-5.2 L HEMOGLOBIN (test code = HGB) 8.5 gram/dL 11.5-15.5 L HEMATOCRIT (test code = HCT) 26.1 % 36.0-46.0 L MEAN CELL VOLUME (test code = MCV) 94.6 fL 80-98 N MEAN CELL HGB (test code = MCH) 30.8 picogram 27.0-33.0 N MEAN CELL HGB CONCETRATION (test code = MCHC) 32.6 gram/dL 33.0-36. 0 L RED CELL DISTRIBUTION WIDTH (test code = RDW) 13.3 % 11.6-16. 2 N RED CELL DISTRIBUTION WIDTH SD (test code = RDW-SD) 45.9 fL 37 .0-51.0 N PLATELET COUNT (test code = PLT) 278 K/mm3 150-450 N MEAN PLATELET VOLUME (test code = MPV) 11.9 fL 6.7-11.0 H NEUTROPHIL % (test code = NT%) 91.1 % 39.0-69.0 H IMMATURE GRANULOCYTE % (test code = IG%) 1.9 % 0.0-5.0 N LYMPHOCYTE % (test code = LY%) 3.7 % 25.0-55.0 L MONOCYTE % (test code = MO%) 3.1 % 0.0-10.0 N EOSINOPHIL % (test code = EO%) 0.0 % 0.0-5.0 N BASOPHIL % (test code = BA%) 0.2 % 0.0-1.0 N NUCLEATED RBC % (test code = NRBC%) 0.0 % 0-0 N NEUTROPHIL # (test code = NT#) 16.59 K/mm3 1.8-7.7 H IMMATURE GRANULOCYTE # (test code = IG#) 0.35 x10 3/uL 0-0.03 H LYMPHOCYTE # (test code = LY#) 0.68 K/mm3 1.0-5.0 L MONOCYTE # (test code = MO#) 0.56 K/mm3 0-0.8 N EOSINOPHIL # (test code = EO#) 0.00 K/mm3 0.0-0.5 N BASOPHIL # (test code = BA#) 0.04 K/mm3 0.0-0.2 N NUCLEATED RBC # (test code = NRBC#) 0.00 K/mm3 0.0-0.1 N MANUAL DIFF REQUIRED (test code = MDIFF) NO [id number] 20:34:00* Test Item Value Reference Range Interpretation Comments GLUBED (test code = GLUBED) 225 mg/dL 74-106 H Performed by certified carousel operator at [facility] [id number] 17:24:00* Test Item Value Reference Range Interpretation Comments GLUBED (test code = GLUBED) 324 mg/dL 74-106 H Performed by certified carousel operator at [facility] [id number] 11:46:00* Test Item Value Reference Range Interpretation Comments GLUBED (test code = GLUBED) 144 mg/dL 74-106 H Performed by certified carousel operator at [facility] [id number] 10:07:00* Test Item Value Reference Range Interpretation Comments VANCOMYCIN (test code = VANCO) 8.4 UG/ML 5.0-45.0 N [id number] 08:47:00* Test Item Value Reference Range Interpretation Comments GLUBED (test code = GLUBED) 232 mg/dL 74-106 H Performed by certified carousel operator at [facility] CBC W/MANUAL [id number] 06:22:00* Test Item Value Reference Range Interpretation Comments WHITE BLOOD CELL (test code = WBC) 22.8 K/mm3 4.5-12.5 H RED BLOOD CELL (test code = RBC) 2.80 mill/mm3 3.7-5.2 L HEMOGLOBIN (test code = HGB) 8.6 gram/dL 11.5-15.5 L HEMATOCRIT (test code = HCT) 26.2 % 36.0-46.0 L MEAN CELL VOLUME (test code = MCV) 93.6 fL 80-98 N MEAN CELL HGB (test code = MCH) 30.7 picogram 27.0-33.0 N MEAN CELL HGB CONCETRATION (test code = MCHC) 32.8 gram/dL 33.0-36. 0 L RED CELL DISTRIBUTION WIDTH (test code = RDW) 12.9 % 11.6-16. 2 N RED CELL DISTRIBUTION WIDTH SD (test code = RDW-SD) 44.1 fL 37 .0-51.0 N PLATELET COUNT (test code = PLT) 257 K/mm3 150-450 N MEAN PLATELET VOLUME (test code = MPV) 12.2 fL 6.7-11.0 H IMMATURE GRANULOCYTE % (test code = IG%) 2.1 % 0.0-5.0 N NUCLEATED RBC % (test code = NRBC%) 0.0 % 0-0 N NEUTROPHIL # (test code = NT#) 21.49 K/mm3 1.8-7.7 H IMMATURE GRANULOCYTE # (test code = IG#) 0.47 x10 3/uL 0-0.03 H LYMPHOCYTE # (test code = LY#) 0.42 K/mm3 1.0-5.0 L MONOCYTE # (test code = MO#) 0.40 K/mm3 0-0.8 N EOSINOPHIL # (test code = EO#) 0.00 K/mm3 0.0-0.5 N BASOPHIL # (test code = BA#) 0.05 K/mm3 0.0-0.2 N NUCLEATED RBC # (test code = NRBC#) 0.00 K/mm3 0.0-0.1 N MANUAL DIFF REQUIRED (test code = MDIFF) YES STAIN ACCEPTABILITY (test code = STN ACCEPTABLE) STAIN ACCEPTABLE TOTAL CELLS COUNTED (test code = TCC) 115 #CELLS SEGMENTED NEUTROPHILS (test code = SEG) 96.5 % 39-69 H BAND NEUTROPHIL (test code = BAND) 0 % 0-10 N LYMPHOCYTE (test code = LYMPH) 2.6 % 25-55 L REACTIVE LYMPH (test code = RELYMPH) 0 % MONOCYTE (test code = MON) 0.9 % 0-10 N EOSINOPHIL (test code = EOS) 0 % 0.0-5.0 N BASOPHIL (test code = BASO) 0 % 0-1.0 N METAMYELOCYTE (test code = META) 0 % 0-0 N MYELOCYTE (test code = MYELO) 0 % 0.0-0.0 N PROMYELOCYTE (test code = PROM) 0 % 0-0 N ANISOCYTOSIS (test code = ANISO) 1+ MICROCYTOSIS (test code = MICR) 1+ PLATELET ESTIMATE (test code = PLTEST) ADEQUATE PLATELET MORPHOLOGY (test code = PLTMORPH) NORMAL IMMATURE FORMS (test code = IMMAT) 0 % 0-0 N - XR CHEST 1 [id number] 05:27:00 FAX: Jak Dumont MD [phone] [place]: B St: [facility] FAX: Kevin Bass MD [phone] FAX: Nely Gray MD Name: DAYANA RICHARDSON [facility] : 1960 Age/S: 59/F [address] [facility] Unit #: [id number] Loc: V.S24 [address] [place] [address] Phys: Nely Gray MD Acct: [id number] Dis Date: Status: ADM IN ONE #: [phone] Exam Date: 05/27/2019 0405 FAX #: [phone] Reason: pneumonia EXAMS: CPT CODE: [id number] XR CHEST 1 V [id number] EXAM: Portable chest one view. Location code:J9 HISTORY: Pneumonia COMPARISON: 05/26/2019 COMMENT: . The lungs and pleu ral spaces are clear. Lungs are normally expanded. The aorta, pulmonary v asculature and mediastinum are within normal limits. Cardiac silhouette i s normal in size and contour. Visualized skeletal structures are unremarka ble. IMPRESSION: No active disease in the chest. Sole ctronically Signed by Garrett Gomes M.D. on 05/27/2019 at 0557 Reported and signed by: Garrett Gomes M.D. CC: Jak Dumont MD; Kevin Veronica MD; Nely Gray MD Technologist: SHAYNE BAEZA RT; SONJA STEPHEN RT(R) Trnscrd Date/Time/By: 05/27/2019 (0504) : By: [email or web address] Orig Print D/T: S: 05/27/2019 (0884) PAGE 1 Signed Report COMPREHENSIVE METABOLIC [id number] 05:20:00* Test Item Value Reference Range Interpretation Comments SODIUM (test code = NA) 140 mmol/L 136-145 N POTASSIUM (test code = K) 4.4 mmol/L 3.5-5.1 N CHLORIDE (test code = CL) 108.0 mmol/L 98-107 H CARBON DIOXIDE (test code = CO2) 26.0 mmol/L 21-32 N ANION GAP (test code = GAP) 10.4 10-20 N GLUCOSE (test code = GLU) 258 mg/dL 74-106 H BLOOD UREA NITROGEN (test code = BUN) 23 mg/dL 7-18 H RESULT VERIFIED BY REPEAT ANALYSIS GLOMERULAR FILTRATION RATE (test code = GFR) > 60 mL/min >=60 Estimated GFR by using Modified MDRD formula.Chronic kidney disease is defined as either kidney damageor GFR <60 mL/min/1.73 m2 for >3 months. CREATININE (test code = CREAT) 0.90 mg/dL 0.55-1.02 N Note change in reference range due to change in reagent. BUN/CREATININE RATIO (test code = BUN/CREA) 25.6 10-20 H TOTAL PROTEIN (test code = PROT) 6.2 gram/dL 6.4-8.2 L ALBUMIN (test code = ALB) 2.3 g/dL 3.4-5.0 L GLOBULIN (test code = GLOB) 3.9 gram/dL 2.7-4.2 N ALBUMIN/GLOBULIN RATIO (test code = A/G) 0.6 0.75-1.50 L CALCIUM (test code = CA) 8.8 mg/dL 8.5-10.1 N BILIRUBIN TOTAL (test code = BILT) 0.20 mg/dL 0.0-1.0 N SGOT/AST (test code = AST) 8 IUnit/L 15-37 L SGPT/ALT (test code = ALT) 13 IUnit/L 12-78 N ALKALINE PHOSPHATASE TOTAL (test code = ALKP) 138 IUnit/L 45-117 H Note change in reference range due to change in reagent. [id number] 05:20:00* Test Item Value Reference Range Interpretation Comments PHOSPHORUS (test code = PHOS) 2.2 mg/dL 2.5-4.9 L [id number] 05:20:00* Test Item Value Reference Range Interpretation Comments MAGNESIUM (test code = MAG) 1.8 mg/dL 1.8-2.4 N COMPREHENSIVE METABOLIC [id number] 05:00:00* Test Item Value Reference Range Interpretation Comments SODIUM (test code = NA) 140 mmol/L 136-145 N POTASSIUM (test code = K) 4.4 mmol/L 3.5-5.1 N CHLORIDE (test code = CL) 108.0 mmol/L 98-107 H CARBON DIOXIDE (test code = CO2) mmol/L 21-32 ANION GAP (test code = GAP) 10-20 GLUCOSE (test code = GLU) mg/dL 74-106 BLOOD UREA NITROGEN (test code = BUN) mg/dL 7-18 GLOMERULAR FILTRATION RATE (test code = GFR) mL/min >=60 CREATININE (test code = CREAT) mg/dL 0.55-1.02 BUN/CREATININE RATIO (test code = BUN/CREA) 10-20 TOTAL PROTEIN (test code = PROT) gram/dL 6.4-8.2 ALBUMIN (test code = ALB) g/dL 3.4-5.0 GLOBULIN (test code = GLOB) gram/dL 2.7-4.2 ALBUMIN/GLOBULIN RATIO (test code = A/G) 0.75-1.50 CALCIUM (test code = CA) mg/dL 8.5-10.1 BILIRUBIN TOTAL (test code = BILT) mg/dL 0.0-1.0 SGOT/AST (test code = AST) IUnit/L 15-37 SGPT/ALT (test code = ALT) IUnit/L 12-78 ALKALINE PHOSPHATASE TOTAL (test code = ALKP) IUnit/L 45-117 [id number] 05:00:00* Test Item Value Reference Range Interpretation Comments PHOSPHORUS (test code = PHOS) mg/dL 2.5-4.9 [id number] 05:00:00* Test Item Value Reference Range Interpretation Comments MAGNESIUM (test code = MAG) mg/dL 1.8-2.4 CBC W/MANUAL [id number] 04:19:00* Test Item Value Reference Range Interpretation Comments WHITE BLOOD CELL (test code = WBC) 22.8 K/mm3 4.5-12.5 H RED BLOOD CELL (test code = RBC) 2.80 mill/mm3 3.7-5.2 L HEMOGLOBIN (test code = HGB) 8.6 gram/dL 11.5-15.5 L HEMATOCRIT (test code = HCT) 26.2 % 36.0-46.0 L MEAN CELL VOLUME (test code = MCV) 93.6 fL 80-98 N MEAN CELL HGB (test code = MCH) 30.7 picogram 27.0-33.0 N MEAN CELL HGB CONCETRATION (test code = MCHC) 32.8 gram/dL 33.0-36. 0 L RED CELL DISTRIBUTION WIDTH (test code = RDW) 12.9 % 11.6-16. 2 N RED CELL DISTRIBUTION WIDTH SD (test code = RDW-SD) 44.1 fL 37 .0-51.0 N PLATELET COUNT (test code = PLT) 257 K/mm3 150-450 N MEAN PLATELET VOLUME (test code = MPV) 12.2 fL 6.7-11.0 H IMMATURE GRANULOCYTE % (test code = IG%) 2.1 % 0.0-5.0 N NUCLEATED RBC % (test code = NRBC%) 0.0 % 0-0 N NEUTROPHIL # (test code = NT#) 21.49 K/mm3 1.8-7.7 H IMMATURE GRANULOCYTE # (test code = IG#) 0.47 x10 3/uL 0-0.03 H LYMPHOCYTE # (test code = LY#) 0.42 K/mm3 1.0-5.0 L MONOCYTE # (test code = MO#) 0.40 K/mm3 0-0.8 N EOSINOPHIL # (test code = EO#) 0.00 K/mm3 0.0-0.5 N BASOPHIL # (test code = BA#) 0.05 K/mm3 0.0-0.2 N NUCLEATED RBC # (test code = NRBC#) 0.00 K/mm3 0.0-0.1 N MANUAL DIFF REQUIRED (test code = MDIFF) YES STAIN ACCEPTABILITY (test code = STN ACCEPTABLE) TOTAL CELLS COUNTED (test code = TCC) #CELLS SEGMENTED NEUTROPHILS (test code = SEG) % 39-69 LYMPHOCYTE (test code = LYMPH) % 25-55 MONOCYTE (test code = MON) % 0-10 EOSINOPHIL (test code = EOS) % 0.0-5.0 CABOT RINGS (test code = CAB) MORPHOLOGY COMMENT (test code = MOC) PLATELET ESTIMATE (test code = PLTEST) PLATELET MORPHOLOGY (test code = PLTMORPH) CBC W/MANUAL [id number] 04:19:00* Test Item Value Reference Range Interpretation Comments WHITE BLOOD CELL (test code = WBC) 22.8 K/mm3 4.5-12.5 H RED BLOOD CELL (test code = RBC) 2.80 mill/mm3 3.7-5.2 L HEMOGLOBIN (test code = HGB) 8.6 gram/dL 11.5-15.5 L HEMATOCRIT (test code = HCT) 26.2 % 36.0-46.0 L MEAN CELL VOLUME (test code = MCV) 93.6 fL 80-98 N MEAN CELL HGB (test code = MCH) 30.7 picogram 27.0-33.0 N MEAN CELL HGB CONCETRATION (test code = MCHC) 32.8 gram/dL 33.0-36. 0 L RED CELL DISTRIBUTION WIDTH (test code = RDW) 12.9 % 11.6-16. 2 N RED CELL DISTRIBUTION WIDTH SD (test code = RDW-SD) 44.1 fL 37 .0-51.0 N PLATELET COUNT (test code = PLT) 257 K/mm3 150-450 N MEAN PLATELET VOLUME (test code = MPV) 12.2 fL 6.7-11.0 H IMMATURE GRANULOCYTE % (test code = IG%) 2.1 % 0.0-5.0 N NUCLEATED RBC % (test code = NRBC%) 0.0 % 0-0 N NEUTROPHIL # (test code = NT#) 21.49 K/mm3 1.8-7.7 H IMMATURE GRANULOCYTE # (test code = IG#) 0.47 x10 3/uL 0-0.03 H LYMPHOCYTE # (test code = LY#) 0.42 K/mm3 1.0-5.0 L MONOCYTE # (test code = MO#) 0.40 K/mm3 0-0.8 N EOSINOPHIL # (test code = EO#) 0.00 K/mm3 0.0-0.5 N BASOPHIL # (test code = BA#) 0.05 K/mm3 0.0-0.2 N NUCLEATED RBC # (test code = NRBC#) 0.00 K/mm3 0.0-0.1 N MANUAL DIFF REQUIRED (test code = MDIFF) YES STAIN ACCEPTABILITY (test code = STN ACCEPTABLE) TOTAL CELLS COUNTED (test code = TCC) #CELLS SEGMENTED NEUTROPHILS (test code = SEG) % 39-69 LYMPHOCYTE (test code = LYMPH) % 25-55 MONOCYTE (test code = MON) % 0-10 EOSINOPHIL (test code = EOS) % 0.0-5.0 CABOT RINGS (test code = CAB) MORPHOLOGY COMMENT (test code = MOC) PLATELET ESTIMATE (test code = PLTEST) PLATELET MORPHOLOGY (test code = PLTMORPH) CBC W/MANUAL [id number] 04:19:00* Test Item Value Reference Range Interpretation Comments WHITE BLOOD CELL (test code = WBC) 22.8 K/mm3 4.5-12.5 H RED BLOOD CELL (test code = RBC) 2.80 mill/mm3 3.7-5.2 L HEMOGLOBIN (test code = HGB) 8.6 gram/dL 11.5-15.5 L HEMATOCRIT (test code = HCT) 26.2 % 36.0-46.0 L MEAN CELL VOLUME (test code = MCV) 93.6 fL 80-98 N MEAN CELL HGB (test code = MCH) 30.7 picogram 27.0-33.0 N MEAN CELL HGB CONCETRATION (test code = MCHC) 32.8 gram/dL 33.0-36. 0 L RED CELL DISTRIBUTION WIDTH (test code = RDW) 12.9 % 11.6-16. 2 N RED CELL DISTRIBUTION WIDTH SD (test code = RDW-SD) 44.1 fL 37 .0-51.0 N PLATELET COUNT (test code = PLT) 257 K/mm3 150-450 N MEAN PLATELET VOLUME (test code = MPV) 12.2 fL 6.7-11.0 H IMMATURE GRANULOCYTE % (test code = IG%) 2.1 % 0.0-5.0 N NUCLEATED RBC % (test code = NRBC%) 0.0 % 0-0 N NEUTROPHIL # (test code = NT#) 21.49 K/mm3 1.8-7.7 H IMMATURE GRANULOCYTE # (test code = IG#) 0.47 x10 3/uL 0-0.03 H LYMPHOCYTE # (test code = LY#) 0.42 K/mm3 1.0-5.0 L MONOCYTE # (test code = MO#) 0.40 K/mm3 0-0.8 N EOSINOPHIL # (test code = EO#) 0.00 K/mm3 0.0-0.5 N BASOPHIL # (test code = BA#) 0.05 K/mm3 0.0-0.2 N NUCLEATED RBC # (test code = NRBC#) 0.00 K/mm3 0.0-0.1 N MANUAL DIFF REQUIRED (test code = MDIFF) YES STAIN ACCEPTABILITY (test code = STN ACCEPTABLE) TOTAL CELLS COUNTED (test code = TCC) #CELLS SEGMENTED NEUTROPHILS (test code = SEG) % 39-69 LYMPHOCYTE (test code = LYMPH) % 25-55 MONOCYTE (test code = MON) % 0-10 EOSINOPHIL (test code = EOS) % 0.0-5.0 MORPHOLOGY COMMENT (test code = MOC) PLATELET ESTIMATE (test code = PLTEST) PLATELET MORPHOLOGY (test code = PLTMORPH) CBC W/MANUAL [id number] 04:19:00* Test Item Value Reference Range Interpretation Comments WHITE BLOOD CELL (test code = WBC) 22.8 K/mm3 4.5-12.5 H RED BLOOD CELL (test code = RBC) 2.80 mill/mm3 3.7-5.2 L HEMOGLOBIN (test code = HGB) 8.6 gram/dL 11.5-15.5 L HEMATOCRIT (test code = HCT) 26.2 % 36.0-46.0 L MEAN CELL VOLUME (test code = MCV) 93.6 fL 80-98 N MEAN CELL HGB (test code = MCH) 30.7 picogram 27.0-33.0 N MEAN CELL HGB CONCETRATION (test code = MCHC) 32.8 gram/dL 33.0-36. 0 L RED CELL DISTRIBUTION WIDTH (test code = RDW) 12.9 % 11.6-16. 2 N RED CELL DISTRIBUTION WIDTH SD (test code = RDW-SD) 44.1 fL 37 .0-51.0 N PLATELET COUNT (test code = PLT) 257 K/mm3 150-450 N MEAN PLATELET VOLUME (test code = MPV) 12.2 fL 6.7-11.0 H IMMATURE GRANULOCYTE % (test code = IG%) 2.1 % 0.0-5.0 N NUCLEATED RBC % (test code = NRBC%) 0.0 % 0-0 N NEUTROPHIL # (test code = NT#) 21.49 K/mm3 1.8-7.7 H IMMATURE GRANULOCYTE # (test code = IG#) 0.47 x10 3/uL 0-0.03 H LYMPHOCYTE # (test code = LY#) 0.42 K/mm3 1.0-5.0 L MONOCYTE # (test code = MO#) 0.40 K/mm3 0-0.8 N EOSINOPHIL # (test code = EO#) 0.00 K/mm3 0.0-0.5 N BASOPHIL # (test code = BA#) 0.05 K/mm3 0.0-0.2 N NUCLEATED RBC # (test code = NRBC#) 0.00 K/mm3 0.0-0.1 N MANUAL DIFF REQUIRED (test code = MDIFF) YES STAIN ACCEPTABILITY (test code = STN ACCEPTABLE) TOTAL CELLS COUNTED (test code = TCC) #CELLS SEGMENTED NEUTROPHILS (test code = SEG) % 39-69 LYMPHOCYTE (test code = LYMPH) % 25-55 MONOCYTE (test code = MON) % 0-10 MORPHOLOGY COMMENT (test code = MOC) PLATELET ESTIMATE (test code = PLTEST) PLATELET MORPHOLOGY (test code = PLTMORPH) CBC W/MANUAL [id number] 04:19:00* Test Item Value Reference Range Interpretation Comments WHITE BLOOD CELL (test code = WBC) 22.8 K/mm3 4.5-12.5 H RED BLOOD CELL (test code = RBC) 2.80 mill/mm3 3.7-5.2 L HEMOGLOBIN (test code = HGB) 8.6 gram/dL 11.5-15.5 L HEMATOCRIT (test code = HCT) 26.2 % 36.0-46.0 L MEAN CELL VOLUME (test code = MCV) 93.6 fL 80-98 N MEAN CELL HGB (test code = MCH) 30.7 picogram 27.0-33.0 N MEAN CELL HGB CONCETRATION (test code = MCHC) 32.8 gram/dL 33.0-36. 0 L RED CELL DISTRIBUTION WIDTH (test code = RDW) 12.9 % 11.6-16. 2 N RED CELL DISTRIBUTION WIDTH SD (test code = RDW-SD) 44.1 fL 37 .0-51.0 N PLATELET COUNT (test code = PLT) 257 K/mm3 150-450 N MEAN PLATELET VOLUME (test code = MPV) 12.2 fL 6.7-11.0 H IMMATURE GRANULOCYTE % (test code = IG%) 2.1 % 0.0-5.0 N NUCLEATED RBC % (test code = NRBC%) 0.0 % 0-0 N NEUTROPHIL # (test code = NT#) 21.49 K/mm3 1.8-7.7 H IMMATURE GRANULOCYTE # (test code = IG#) 0.47 x10 3/uL 0-0.03 H LYMPHOCYTE # (test code = LY#) 0.42 K/mm3 1.0-5.0 L MONOCYTE # (test code = MO#) 0.40 K/mm3 0-0.8 N EOSINOPHIL # (test code = EO#) 0.00 K/mm3 0.0-0.5 N BASOPHIL # (test code = BA#) 0.05 K/mm3 0.0-0.2 N NUCLEATED RBC # (test code = NRBC#) 0.00 K/mm3 0.0-0.1 N MANUAL DIFF REQUIRED (test code = MDIFF) YES STAIN ACCEPTABILITY (test code = STN ACCEPTABLE) TOTAL CELLS COUNTED (test code = TCC) #CELLS SEGMENTED NEUTROPHILS (test code = SEG) % 39-69 LYMPHOCYTE (test code = LYMPH) % 25-55 MONOCYTE (test code = MON) % 0-10 EOSINOPHIL (test code = EOS) % 0.0-5.0 CABOT RINGS (test code = CAB) MORPHOLOGY COMMENT (test code = MOC) PLATELET ESTIMATE (test code = PLTEST) PLATELET MORPHOLOGY (test code = PLTMORPH) [id number] 20:28:00* Test Item Value Reference Range Interpretation Comments GLUBED (test code = GLUBED) 264 mg/dL 74-106 H Performed by certified carousel operator at [facility] [id number] 15:09:00* Test Item Value Reference Range Interpretation Comments GLUBED (test code = GLUBED) 402 mg/dL 74-106 H Performed by certified carousel operator at [facility] [id number] 12:12:00* Test Item Value Reference Range Interpretation Comments GLUBED (test code = GLUBED) 281 mg/dL 74-106 H Performed by certified carousel operator at [facility] [id number] 07:12:00* Test Item Value Reference Range Interpretation Comments GLUBED (test code = GLUBED) 136 mg/dL 74-106 H Performed by certified carousel operator at [facility] - XR CHEST 1 [id number] 06:27:00 FAX: Jak Dumont MD [phone] [place]: B St: ADM FAX: Kevin Bass MD [phone] FAX: Nely Gray MD Name: DAYANA RICHARDSON [facility] : 1960 Age/S: 59/F Saumya Campoverde Unit #: [id number] Loc: Joanne4 [place] [address] Phys: Nely Gray MD Acct: [id number] Dis Date: Status: ADM IN ONE #: [phone] Exam Date: 05/26/2019 0542 FAX #: [phone] Reason: pneumonia EXAMS: CPT CODE: [id number] XR CHEST 1 V 12423 CLINICAL HISTO RY: pneumonia TECHNIQUE: AP chest x-ray COMPARISON: Previous day. IMPRESSION: Near completely reso lved left basilar airspace opacification. No pleural effusion. Normal he art size. Atherosclerotic vascular calcification of the thoracic aorta. Electronically Signed by Steph Gray D.O. on 05/26 at 0627 Reported and signed by: Steph Gray D.O. CC: Jak Dumont MD; Kevin Veronica MD; Nely Gray MD Technologist: CAMERON Weiss Trnscrd Da te/Time/By: 05/26/2019 (0627) : By: [email or web address] Orig Print D/T: S: 05/26 (0631) PAGE 1 Signed Report CBC W/MANUAL [id number] 06:20:00* Test Item Value Reference Range Interpretation Comments WHITE BLOOD CELL (test code = WBC) 26.4 K/mm3 4.5-12.5 H RED BLOOD CELL (test code = RBC) 2.80 mill/mm3 3.7-5.2 L HEMOGLOBIN (test code = HGB) 8.7 gram/dL 11.5-15.5 L HEMATOCRIT (test code = HCT) 26.0 % 36.0-46.0 L MEAN CELL VOLUME (test code = MCV) 92.9 fL 80-98 N MEAN CELL HGB (test code = MCH) 31.1 picogram 27.0-33.0 N MEAN CELL HGB CONCETRATION (test code = MCHC) 33.5 gram/dL 33.0-36. 0 N RED CELL DISTRIBUTION WIDTH (test code = RDW) 13.1 % 11.6-16. 2 N RED CELL DISTRIBUTION WIDTH SD (test code = RDW-SD) 44.4 fL 37 .0-51.0 N PLATELET COUNT (test code = PLT) 244 K/mm3 150-450 N MEAN PLATELET VOLUME (test code = MPV) 12.4 fL 6.7-11.0 H IMMATURE GRANULOCYTE % (test code = IG%) 1.0 % 0.0-5.0 N NUCLEATED RBC % (test code = NRBC%) 0.0 % 0-0 N NEUTROPHIL # (test code = NT#) 22.80 K/mm3 1.8-7.7 H IMMATURE GRANULOCYTE # (test code = IG#) 0.26 x10 3/uL 0-0.03 H LYMPHOCYTE # (test code = LY#) 1.87 K/mm3 1.0-5.0 N MONOCYTE # (test code = MO#) 1.38 K/mm3 0-0.8 H EOSINOPHIL # (test code = EO#) 0.01 K/mm3 0.0-0.5 N BASOPHIL # (test code = BA#) 0.03 K/mm3 0.0-0.2 N NUCLEATED RBC # (test code = NRBC#) 0.00 K/mm3 0.0-0.1 N MANUAL DIFF REQUIRED (test code = MDIFF) YES STAIN ACCEPTABILITY (test code = STN ACCEPTABLE) STAIN ACCEPTABLE TOTAL CELLS COUNTED (test code = TCC) 114 #CELLS SEGMENTED NEUTROPHILS (test code = SEG) 96.5 % 39-69 H BAND NEUTROPHIL (test code = BAND) 0 % 0-10 N LYMPHOCYTE (test code = LYMPH) 2.6 % 25-55 L REACTIVE LYMPH (test code = RELYMPH) 0 % MONOCYTE (test code = MON) 0 % 0-10 N EOSINOPHIL (test code = EOS) 0 % 0.0-5.0 N BASOPHIL (test code = BASO) 0 % 0-1.0 N METAMYELOCYTE (test code = META) 0 % 0-0 N MYELOCYTE (test code = MYELO) 0.9 % 0.0-0.0 H PROMYELOCYTE (test code = PROM) 0 % 0-0 N POIKILOCYTOSIS (test code = POIK) 1+ AYAD CELLS (test code = AYAD) 1+ NONE PLATELET ESTIMATE (test code = PLTEST) ADEQUATE PLATELET MORPHOLOGY (test code = PLTMORPH) NORMAL IMMATURE FORMS (test code = IMMAT) 0 % 0-0 N BASIC METABOLIC [id number] 05:25:00* Test Item Value Reference Range Interpretation Comments SODIUM (test code = NA) 142 mmol/L 136-145 N POTASSIUM (test code = K) 3.8 mmol/L 3.5-5.1 N CHLORIDE (test code = CL) 112.0 mmol/L 98-107 H CARBON DIOXIDE (test code = CO2) 21.0 mmol/L 21-32 N ANION GAP (test code = GAP) 12.8 10-20 N GLUCOSE (test code = GLU) 130 mg/dL 74-106 H BLOOD UREA NITROGEN (test code = BUN) 41 mg/dL 7-18 H RESULT VERIFIED BY REPEAT ANALYSIS GLOMERULAR FILTRATION RATE (test code = GFR) 51 mL/min >=60 Estimated GFR by using Modified MDRD formula.Chronic kidney disease is defined as either kidney damageor GFR <60 mL/min/1.73 m2 for >3 months. CREATININE (test code = CREAT) 1.10 mg/dL 0.55-1.02 H Note change in reference range due to change in reagent. BUN/CREATININE RATIO (test code = BUN/CREA) 37.3 10-20 H CALCIUM (test code = CA) 8.2 mg/dL 8.5-10.1 L [id number] 05:25:00* Test Item Value Reference Range Interpretation Comments PHOSPHORUS (test code = PHOS) 2.4 mg/dL 2.5-4.9 L [id number] 05:25:00* Test Item Value Reference Range Interpretation Comments MAGNESIUM (test code = MAG) 1.9 mg/dL 1.8-2.4 N BASIC METABOLIC [id number] 05:10:00* Test Item Value Reference Range Interpretation Comments SODIUM (test code = NA) 142 mmol/L 136-145 N POTASSIUM (test code = K) 3.8 mmol/L 3.5-5.1 N CHLORIDE (test code = CL) 112.0 mmol/L 98-107 H CARBON DIOXIDE (test code = CO2) mmol/L 21-32 ANION GAP (test code = GAP) 10-20 GLUCOSE (test code = GLU) mg/dL 74-106 BLOOD UREA NITROGEN (test code = BUN) mg/dL 7-18 GLOMERULAR FILTRATION RATE (test code = GFR) mL/min >=60 CREATININE (test code = CREAT) mg/dL 0.55-1.02 BUN/CREATININE RATIO (test code = BUN/CREA) 10-20 CALCIUM (test code = CA) mg/dL 8.5-10.1 [id number] 05:10:00* Test Item Value Reference Range Interpretation Comments PHOSPHORUS (test code = PHOS) mg/dL 2.5-4.9 [id number] 05:10:00* Test Item Value Reference Range Interpretation Comments MAGNESIUM (test code = MAG) mg/dL 1.8-2.4 CBC W/MANUAL [id number] 04:48:00* Test Item Value Reference Range Interpretation Comments WHITE BLOOD CELL (test code = WBC) 26.4 K/mm3 4.5-12.5 H RED BLOOD CELL (test code = RBC) 2.80 mill/mm3 3.7-5.2 L HEMOGLOBIN (test code = HGB) 8.7 gram/dL 11.5-15.5 L HEMATOCRIT (test code = HCT) 26.0 % 36.0-46.0 L MEAN CELL VOLUME (test code = MCV) 92.9 fL 80-98 N MEAN CELL HGB (test code = MCH) 31.1 picogram 27.0-33.0 N MEAN CELL HGB CONCETRATION (test code = MCHC) 33.5 gram/dL 33.0-36. 0 N RED CELL DISTRIBUTION WIDTH (test code = RDW) 13.1 % 11.6-16. 2 N RED CELL DISTRIBUTION WIDTH SD (test code = RDW-SD) 44.4 fL 37 .0-51.0 N PLATELET COUNT (test code = PLT) 244 K/mm3 150-450 N MEAN PLATELET VOLUME (test code = MPV) 12.4 fL 6.7-11.0 H IMMATURE GRANULOCYTE % (test code = IG%) 1.0 % 0.0-5.0 N NUCLEATED RBC % (test code = NRBC%) 0.0 % 0-0 N NEUTROPHIL # (test code = NT#) 22.80 K/mm3 1.8-7.7 H IMMATURE GRANULOCYTE # (test code = IG#) 0.26 x10 3/uL 0-0.03 H LYMPHOCYTE # (test code = LY#) 1.87 K/mm3 1.0-5.0 N MONOCYTE # (test code = MO#) 1.38 K/mm3 0-0.8 H EOSINOPHIL # (test code = EO#) 0.01 K/mm3 0.0-0.5 N BASOPHIL # (test code = BA#) 0.03 K/mm3 0.0-0.2 N NUCLEATED RBC # (test code = NRBC#) 0.00 K/mm3 0.0-0.1 N MANUAL DIFF REQUIRED (test code = MDIFF) YES STAIN ACCEPTABILITY (test code = STN ACCEPTABLE) TOTAL CELLS COUNTED (test code = TCC) #CELLS SEGMENTED NEUTROPHILS (test code = SEG) % 39-69 LYMPHOCYTE (test code = LYMPH) % 25-55 MONOCYTE (test code = MON) % 0-10 EOSINOPHIL (test code = EOS) % 0.0-5.0 CABOT RINGS (test code = CAB) MORPHOLOGY COMMENT (test code = MOC) PLATELET ESTIMATE (test code = PLTEST) PLATELET MORPHOLOGY (test code = PLTMORPH) CBC W/MANUAL [id number] 04:48:00* Test Item Value Reference Range Interpretation Comments WHITE BLOOD CELL (test code = WBC) 26.4 K/mm3 4.5-12.5 H RED BLOOD CELL (test code = RBC) 2.80 mill/mm3 3.7-5.2 L HEMOGLOBIN (test code = HGB) 8.7 gram/dL 11.5-15.5 L HEMATOCRIT (test code = HCT) 26.0 % 36.0-46.0 L MEAN CELL VOLUME (test code = MCV) 92.9 fL 80-98 N MEAN CELL HGB (test code = MCH) 31.1 picogram 27.0-33.0 N MEAN CELL HGB CONCETRATION (test code = MCHC) 33.5 gram/dL 33.0-36. 0 N RED CELL DISTRIBUTION WIDTH (test code = RDW) 13.1 % 11.6-16. 2 N RED CELL DISTRIBUTION WIDTH SD (test code = RDW-SD) 44.4 fL 37 .0-51.0 N PLATELET COUNT (test code = PLT) 244 K/mm3 150-450 N MEAN PLATELET VOLUME (test code = MPV) 12.4 fL 6.7-11.0 H IMMATURE GRANULOCYTE % (test code = IG%) 1.0 % 0.0-5.0 N NUCLEATED RBC % (test code = NRBC%) 0.0 % 0-0 N NEUTROPHIL # (test code = NT#) 22.80 K/mm3 1.8-7.7 H IMMATURE GRANULOCYTE # (test code = IG#) 0.26 x10 3/uL 0-0.03 H LYMPHOCYTE # (test code = LY#) 1.87 K/mm3 1.0-5.0 N MONOCYTE # (test code = MO#) 1.38 K/mm3 0-0.8 H EOSINOPHIL # (test code = EO#) 0.01 K/mm3 0.0-0.5 N BASOPHIL # (test code = BA#) 0.03 K/mm3 0.0-0.2 N NUCLEATED RBC # (test code = NRBC#) 0.00 K/mm3 0.0-0.1 N MANUAL DIFF REQUIRED (test code = MDIFF) YES STAIN ACCEPTABILITY (test code = STN ACCEPTABLE) TOTAL CELLS COUNTED (test code = TCC) #CELLS SEGMENTED NEUTROPHILS (test code = SEG) % 39-69 LYMPHOCYTE (test code = LYMPH) % 25-55 MONOCYTE (test code = MON) % 0-10 EOSINOPHIL (test code = EOS) % 0.0-5.0 CABOT RINGS (test code = CAB) MORPHOLOGY COMMENT (test code = MOC) PLATELET ESTIMATE (test code = PLTEST) PLATELET MORPHOLOGY (test code = PLTMORPH) CBC W/MANUAL [id number] 04:48:00* Test Item Value Reference Range Interpretation Comments WHITE BLOOD CELL (test code = WBC) 26.4 K/mm3 4.5-12.5 H RED BLOOD CELL (test code = RBC) 2.80 mill/mm3 3.7-5.2 L HEMOGLOBIN (test code = HGB) 8.7 gram/dL 11.5-15.5 L HEMATOCRIT (test code = HCT) 26.0 % 36.0-46.0 L MEAN CELL VOLUME (test code = MCV) 92.9 fL 80-98 N MEAN CELL HGB (test code = MCH) 31.1 picogram 27.0-33.0 N MEAN CELL HGB CONCETRATION (test code = MCHC) 33.5 gram/dL 33.0-36. 0 N RED CELL DISTRIBUTION WIDTH (test code = RDW) 13.1 % 11.6-16. 2 N RED CELL DISTRIBUTION WIDTH SD (test code = RDW-SD) 44.4 fL 37 .0-51.0 N PLATELET COUNT (test code = PLT) 244 K/mm3 150-450 N MEAN PLATELET VOLUME (test code = MPV) 12.4 fL 6.7-11.0 H IMMATURE GRANULOCYTE % (test code = IG%) 1.0 % 0.0-5.0 N NUCLEATED RBC % (test code = NRBC%) 0.0 % 0-0 N NEUTROPHIL # (test code = NT#) 22.80 K/mm3 1.8-7.7 H IMMATURE GRANULOCYTE # (test code = IG#) 0.26 x10 3/uL 0-0.03 H LYMPHOCYTE # (test code = LY#) 1.87 K/mm3 1.0-5.0 N MONOCYTE # (test code = MO#) 1.38 K/mm3 0-0.8 H EOSINOPHIL # (test code = EO#) 0.01 K/mm3 0.0-0.5 N BASOPHIL # (test code = BA#) 0.03 K/mm3 0.0-0.2 N NUCLEATED RBC # (test code = NRBC#) 0.00 K/mm3 0.0-0.1 N MANUAL DIFF REQUIRED (test code = MDIFF) YES STAIN ACCEPTABILITY (test code = STN ACCEPTABLE) TOTAL CELLS COUNTED (test code = TCC) #CELLS SEGMENTED NEUTROPHILS (test code = SEG) % 39-69 LYMPHOCYTE (test code = LYMPH) % 25-55 MONOCYTE (test code = MON) % 0-10 EOSINOPHIL (test code = EOS) % 0.0-5.0 MORPHOLOGY COMMENT (test code = MOC) PLATELET ESTIMATE (test code = PLTEST) PLATELET MORPHOLOGY (test code = PLTMORPH) CBC W/MANUAL [id number] 04:48:00* Test Item Value Reference Range Interpretation Comments WHITE BLOOD CELL (test code = WBC) 26.4 K/mm3 4.5-12.5 H RED BLOOD CELL (test code = RBC) 2.80 mill/mm3 3.7-5.2 L HEMOGLOBIN (test code = HGB) 8.7 gram/dL 11.5-15.5 L HEMATOCRIT (test code = HCT) 26.0 % 36.0-46.0 L MEAN CELL VOLUME (test code = MCV) 92.9 fL 80-98 N MEAN CELL HGB (test code = MCH) 31.1 picogram 27.0-33.0 N MEAN CELL HGB CONCETRATION (test code = MCHC) 33.5 gram/dL 33.0-36. 0 N RED CELL DISTRIBUTION WIDTH (test code = RDW) 13.1 % 11.6-16. 2 N RED CELL DISTRIBUTION WIDTH SD (test code = RDW-SD) 44.4 fL 37 .0-51.0 N PLATELET COUNT (test code = PLT) 244 K/mm3 150-450 N MEAN PLATELET VOLUME (test code = MPV) 12.4 fL 6.7-11.0 H IMMATURE GRANULOCYTE % (test code = IG%) 1.0 % 0.0-5.0 N NUCLEATED RBC % (test code = NRBC%) 0.0 % 0-0 N NEUTROPHIL # (test code = NT#) 22.80 K/mm3 1.8-7.7 H IMMATURE GRANULOCYTE # (test code = IG#) 0.26 x10 3/uL 0-0.03 H LYMPHOCYTE # (test code = LY#) 1.87 K/mm3 1.0-5.0 N MONOCYTE # (test code = MO#) 1.38 K/mm3 0-0.8 H EOSINOPHIL # (test code = EO#) 0.01 K/mm3 0.0-0.5 N BASOPHIL # (test code = BA#) 0.03 K/mm3 0.0-0.2 N NUCLEATED RBC # (test code = NRBC#) 0.00 K/mm3 0.0-0.1 N MANUAL DIFF REQUIRED (test code = MDIFF) YES STAIN ACCEPTABILITY (test code = STN ACCEPTABLE) TOTAL CELLS COUNTED (test code = TCC) #CELLS SEGMENTED NEUTROPHILS (test code = SEG) % 39-69 LYMPHOCYTE (test code = LYMPH) % 25-55 MONOCYTE (test code = MON) % 0-10 MORPHOLOGY COMMENT (test code = MOC) PLATELET ESTIMATE (test code = PLTEST) PLATELET MORPHOLOGY (test code = PLTMORPH) CBC W/MANUAL [id number] 04:48:00* Test Item Value Reference Range Interpretation Comments WHITE BLOOD CELL (test code = WBC) 26.4 K/mm3 4.5-12.5 H RED BLOOD CELL (test code = RBC) 2.80 mill/mm3 3.7-5.2 L HEMOGLOBIN (test code = HGB) 8.7 gram/dL 11.5-15.5 L HEMATOCRIT (test code = HCT) 26.0 % 36.0-46.0 L MEAN CELL VOLUME (test code = MCV) 92.9 fL 80-98 N MEAN CELL HGB (test code = MCH) 31.1 picogram 27.0-33.0 N MEAN CELL HGB CONCETRATION (test code = MCHC) 33.5 gram/dL 33.0-36. 0 N RED CELL DISTRIBUTION WIDTH (test code = RDW) 13.1 % 11.6-16. 2 N RED CELL DISTRIBUTION WIDTH SD (test code = RDW-SD) 44.4 fL 37 .0-51.0 N PLATELET COUNT (test code = PLT) 244 K/mm3 150-450 N MEAN PLATELET VOLUME (test code = MPV) 12.4 fL 6.7-11.0 H IMMATURE GRANULOCYTE % (test code = IG%) 1.0 % 0.0-5.0 N NUCLEATED RBC % (test code = NRBC%) 0.0 % 0-0 N NEUTROPHIL # (test code = NT#) 22.80 K/mm3 1.8-7.7 H IMMATURE GRANULOCYTE # (test code = IG#) 0.26 x10 3/uL 0-0.03 H LYMPHOCYTE # (test code = LY#) 1.87 K/mm3 1.0-5.0 N MONOCYTE # (test code = MO#) 1.38 K/mm3 0-0.8 H EOSINOPHIL # (test code = EO#) 0.01 K/mm3 0.0-0.5 N BASOPHIL # (test code = BA#) 0.03 K/mm3 0.0-0.2 N NUCLEATED RBC # (test code = NRBC#) 0.00 K/mm3 0.0-0.1 N MANUAL DIFF REQUIRED (test code = MDIFF) YES STAIN ACCEPTABILITY (test code = STN ACCEPTABLE) TOTAL CELLS COUNTED (test code = TCC) #CELLS SEGMENTED NEUTROPHILS (test code = SEG) % 39-69 LYMPHOCYTE (test code = LYMPH) % 25-55 MONOCYTE (test code = MON) % 0-10 EOSINOPHIL (test code = EOS) % 0.0-5.0 CABOT RINGS (test code = CAB) MORPHOLOGY COMMENT (test code = MOC) PLATELET ESTIMATE (test code = PLTEST) PLATELET MORPHOLOGY (test code = PLTMORPH) [id number] 21:14:00* Test Item Value Reference Range Interpretation Comments GLUBED (test code = GLUBED) 140 mg/dL 74-106 H Performed by certified carousel operator at [facility] BASIC METABOLIC [id number] 18:41:00* Test Item Value Reference Range Interpretation Comments SODIUM (test code = NA) 141 mmol/L 136-145 N POTASSIUM (test code = K) 4.3 mmol/L 3.5-5.1 N CHLORIDE (test code = CL) 109.0 mmol/L 98-107 H CARBON DIOXIDE (test code = CO2) 21.0 mmol/L 21-32 N ANION GAP (test code = GAP) 15.3 10-20 N GLUCOSE (test code = GLU) 218 mg/dL 74-106 H BLOOD UREA NITROGEN (test code = BUN) 56 mg/dL 7-18 H GLOMERULAR FILTRATION RATE (test code = GFR) 36 mL/min >=60 Estimated GFR by using Modified MDRD formula.Chronic kidney disease is defined as either kidney damageor GFR <60 mL/min/1.73 m2 for >3 months. CREATININE (test code = CREAT) 1.50 mg/dL 0.55-1.02 H Note change in reference range due to change in reagent. BUN/CREATININE RATIO (test code = BUN/CREA) 36.4 10-20 H CALCIUM (test code = CA) 8.1 mg/dL 8.5-10.1 L BASIC METABOLIC [id number] 18:35:00* Test Item Value Reference Range Interpretation Comments SODIUM (test code = NA) 141 mmol/L 136-145 N POTASSIUM (test code = K) 4.3 mmol/L 3.5-5.1 N CHLORIDE (test code = CL) 109.0 mmol/L 98-107 H CARBON DIOXIDE (test code = CO2) mmol/L 21-32 ANION GAP (test code = GAP) 10-20 GLUCOSE (test code = GLU) mg/dL 74-106 BLOOD UREA NITROGEN (test code = BUN) mg/dL 7-18 GLOMERULAR FILTRATION RATE (test code = GFR) mL/min >=60 CREATININE (test code = CREAT) mg/dL 0.55-1.02 BUN/CREATININE RATIO (test code = BUN/CREA) 10-20 CALCIUM (test code = CA) mg/dL 8.5-10.1 [id number] 18:09:00* Test Item Value Reference Range Interpretation Comments GLUBED (test code = GLUBED) 170 mg/dL 74-106 H Performed by certified carousel operator at [facility] [id number] 17:00:00* Test Item Value Reference Range Interpretation Comments GLUBED (test code = GLUBED) 204 mg/dL 74-106 H Performed by certified carousel operator at [facility] [id number] 17:00:00* Test Item Value Reference Range Interpretation Comments GLUBED (test code = GLUBED) 220 mg/dL 74-106 H Performed by certified carousel operator at [facility] [id number] 17:00:00* Test Item Value Reference Range Interpretation Comments GLUBED (test code = GLUBED) 134 mg/dL 74-106 H Performed by certified carousel operator at [facility] [id number] 17:00:00* Test Item Value Reference Range Interpretation Comments GLUBED (test code = GLUBED) 105 mg/dL 74-106 N Performed by certified carousel operator at [facility] [id number] 17:00:00* Test Item Value Reference Range Interpretation Comments GLUBED (test code = GLUBED) 148 mg/dL 74-106 H Performed by certified carousel operator at [facility] BASIC METABOLIC [id number] 12:07:00* Test Item Value Reference Range Interpretation Comments SODIUM (test code = NA) 140 mmol/L 136-145 N POTASSIUM (test code = K) 4.4 mmol/L 3.5-5.1 N CHLORIDE (test code = CL) 106.0 mmol/L 98-107 N CARBON DIOXIDE (test code = CO2) 22.0 mmol/L 21-32 N ANION GAP (test code = GAP) 16.4 10-20 N GLUCOSE (test code = GLU) 134 mg/dL 74-106 H BLOOD UREA NITROGEN (test code = BUN) 59 mg/dL 7-18 H GLOMERULAR FILTRATION RATE (test code = GFR) 29 mL/min >=60 Estimated GFR by using Modified MDRD formula.Chronic kidney disease is defined as either kidney damageor GFR <60 mL/min/1.73 m2 for >3 months. CREATININE (test code = CREAT) 1.80 mg/dL 0.55-1.02 H Note change in reference range due to change in reagent. BUN/CREATININE RATIO (test code = BUN/CREA) 33.1 10-20 H CALCIUM (test code = CA) 8.2 mg/dL 8.5-10.1 L [id number] 12:07:00* Test Item Value Reference Range Interpretation Comments PHOSPHORUS (test code = PHOS) 3.6 mg/dL 2.5-4.9 N [id number] 12:07:00* Test Item Value Reference Range Interpretation Comments MAGNESIUM (test code = MAG) 1.9 mg/dL 1.8-2.4 N BASIC METABOLIC [id number] 12:02:00* Test Item Value Reference Range Interpretation Comments SODIUM (test code = NA) 140 mmol/L 136-145 N POTASSIUM (test code = K) 4.4 mmol/L 3.5-5.1 N CHLORIDE (test code = CL) 106.0 mmol/L 98-107 N CARBON DIOXIDE (test code = CO2) mmol/L 21-32 ANION GAP (test code = GAP) 10-20 GLUCOSE (test code = GLU) mg/dL 74-106 BLOOD UREA NITROGEN (test code = BUN) mg/dL 7-18 GLOMERULAR FILTRATION RATE (test code = GFR) mL/min >=60 CREATININE (test code = CREAT) mg/dL 0.55-1.02 BUN/CREATININE RATIO (test code = BUN/CREA) 10-20 CALCIUM (test code = CA) mg/dL 8.5-10.1 [id number] 12:02:00* Test Item Value Reference Range Interpretation Comments PHOSPHORUS (test code = PHOS) mg/dL 2.5-4.9 [id number] 12:02:00* Test Item Value Reference Range Interpretation Comments MAGNESIUM (test code = MAG) mg/dL 1.8-2.4 - XR CHEST 1 [id number] 06:21:00 FAX: Jak Dumont MD [phone] [place]: St: ADM FAX: Kevin Bass MD [phone] FAX: Nely Gray MD Name: DAYANA RICHARDSON [facility] : 1960 Age/S: 59/F [address] [facility] Unit #: [id number] Loc: [address] [address] Phys: Nely Gray MD Acct: [id number] Dis Date: Status: ADM IN [facility] #: [phone] Exam Date: 05/25/2019 0537 FAX #: [phone] Reason: pneumonia EXAMS: CPT CODE: [id number] XR CHEST 1 V 03341 CLINICAL HISTO RY: pneumonia TECHNIQUE: AP chest x-ray COMPARISON: Previous day. IMPRESSION: Improved patchy left basilar airspace opacification. No pleural effusion. Normal heart size. Atherosclerotic vascular calcification of the thoracic aorta. at 0621 Reported and signed by: Steph Gray D.O. CC: Jak Dumont MD; Kevin Veronica MD; Nely Gray MD Technologist: GABY Weiss Trnarrd Date/Time/By: 2018 (0621) : By: [email or web address] Orig Print D/T: S: 05/25/2019 (0670) PAGE 1 Signed Report CBC W/MANUAL [id number] 05:33:00* Test Item Value Reference Range Interpretation Comments WHITE BLOOD CELL (test code = WBC) 38.6 K/mm3 4.5-12.5 H RESULT VERIFIED BY REPEAT ANALYSIS RED BLOOD CELL (test code = RBC) 2.78 mill/mm3 3.7-5.2 L HEMOGLOBIN (test code = HGB) 8.7 gram/dL 11.5-15.5 L HEMATOCRIT (test code = HCT) 25.8 % 36.0-46.0 L MEAN CELL VOLUME (test code = MCV) 92.8 fL 80-98 N MEAN CELL HGB (test code = MCH) 31.3 picogram 27.0-33.0 N MEAN CELL HGB CONCETRATION (test code = MCHC) 33.7 gram/dL 33.0-36. 0 N RED CELL DISTRIBUTION WIDTH (test code = RDW) 12.4 % 11.6-16. 2 N RED CELL DISTRIBUTION WIDTH SD (test code = RDW-SD) 42.4 fL 37 .0-51.0 N PLATELET COUNT (test code = PLT) 235 K/mm3 150-450 N MEAN PLATELET VOLUME (test code = MPV) 12.8 fL 6.7-11.0 H IMMATURE GRANULOCYTE % (test code = IG%) 1.5 % 0.0-5.0 N NUCLEATED RBC % (test code = NRBC%) 0.0 % 0-0 N NEUTROPHIL # (test code = NT#) 35.80 K/mm3 1.8-7.7 H IMMATURE GRANULOCYTE # (test code = IG#) 0.58 x10 3/uL 0-0.03 H LYMPHOCYTE # (test code = LY#) 1.20 K/mm3 1.0-5.0 N MONOCYTE # (test code = MO#) 0.97 K/mm3 0-0.8 H EOSINOPHIL # (test code = EO#) 0.00 K/mm3 0.0-0.5 N BASOPHIL # (test code = BA#) 0.08 K/mm3 0.0-0.2 N NUCLEATED RBC # (test code = NRBC#) 0.00 K/mm3 0.0-0.1 N MANUAL DIFF REQUIRED (test code = MDIFF) YES STAIN ACCEPTABILITY (test code = STN ACCEPTABLE) STAIN ACCEPTABLE TOTAL CELLS COUNTED (test code = TCC) 114 #CELLS SEGMENTED NEUTROPHILS (test code = SEG) 98.2 % 39-69 H BAND NEUTROPHIL (test code = BAND) 0 % 0-10 N LYMPHOCYTE (test code = LYMPH) 1.8 % 25-55 L REACTIVE LYMPH (test code = RELYMPH) 0 % MONOCYTE (test code = MON) 0 % 0-10 N EOSINOPHIL (test code = EOS) 0 % 0.0-5.0 N BASOPHIL (test code = BASO) 0 % 0-1.0 N METAMYELOCYTE (test code = META) 0 % 0-0 N MYELOCYTE (test code = MYELO) 0 % 0.0-0.0 N PROMYELOCYTE (test code = PROM) 0 % 0-0 N POIKILOCYTOSIS (test code = POIK) 1+ ANISOCYTOSIS (test code = ANISO) 1+ MICROCYTOSIS (test code = MICR) 1+ CRENATED CELLS (test code = CREN) 1+ PLATELET ESTIMATE (test code = PLTEST) ADEQUATE PLATELET MORPHOLOGY (test code = PLTMORPH) NORMAL IMMATURE FORMS (test code = IMMAT) 0 % 0-0 N [id number] 05:13:00* Test Item Value Reference Range Interpretation Comments GLUBED (test code = GLUBED) 141 mg/dL 74-106 H Performed by certified carousel operator at [facility] BASIC METABOLIC [id number] 03:40:00* Test Item Value Reference Range Interpretation Comments SODIUM (test code = NA) 138 mmol/L 136-145 RESU LT VERIFIED BY REPEAT ANALYSIS POTASSIUM (test code = K) 3.7 mmol/L 3.5-5.1 RE SULT VERIFIED BY REPEAT ANALYSIS CHLORIDE (test code = CL) 106.0 mmol/L 98-107 N CARBON DIOXIDE (test code = CO2) 22.0 mmol/L 21-32 N ANION GAP (test code = GAP) 13.7 10-20 N GLUCOSE (test code = GLU) 304 mg/dL 74-106 H BLOOD UREA NITROGEN (test code = BUN) 60 mg/dL 7-18 H GLOMERULAR FILTRATION RATE (test code = GFR) 24 mL/min >=60 Estimated GFR by using Modified MDRD formula.Chronic kidney disease is defined as either kidney damageor GFR <60 mL/min/1.73 m2 for >3 months. CREATININE (test code = CREAT) 2.10 mg/dL 0.55-1.02 H Note change in reference range due to change in reagent. BUN/CREATININE RATIO (test code = BUN/CREA) 28.0 10-20 H CALCIUM (test code = CA) 7.7 mg/dL 8.5-10.1 L CBC W/MANUAL [id number] 03:16:00* Test Item Value Reference Range Interpretation Comments WHITE BLOOD CELL (test code = WBC) 38.6 K/mm3 4.5-12.5 H RESULT VERIFIED BY REPEAT ANALYSIS RED BLOOD CELL (test code = RBC) 2.78 mill/mm3 3.7-5.2 L HEMOGLOBIN (test code = HGB) 8.7 gram/dL 11.5-15.5 L HEMATOCRIT (test code = HCT) 25.8 % 36.0-46.0 L MEAN CELL VOLUME (test code = MCV) 92.8 fL 80-98 N MEAN CELL HGB (test code = MCH) 31.3 picogram 27.0-33.0 N MEAN CELL HGB CONCETRATION (test code = MCHC) 33.7 gram/dL 33.0-36. 0 N RED CELL DISTRIBUTION WIDTH (test code = RDW) 12.4 % 11.6-16. 2 N RED CELL DISTRIBUTION WIDTH SD (test code = RDW-SD) 42.4 fL 37 .0-51.0 N PLATELET COUNT (test code = PLT) 235 K/mm3 150-450 N MEAN PLATELET VOLUME (test code = MPV) 12.8 fL 6.7-11.0 H IMMATURE GRANULOCYTE % (test code = IG%) 1.5 % 0.0-5.0 N NUCLEATED RBC % (test code = NRBC%) 0.0 % 0-0 N NEUTROPHIL # (test code = NT#) 35.80 K/mm3 1.8-7.7 H IMMATURE GRANULOCYTE # (test code = IG#) 0.58 x10 3/uL 0-0.03 H LYMPHOCYTE # (test code = LY#) 1.20 K/mm3 1.0-5.0 N MONOCYTE # (test code = MO#) 0.97 K/mm3 0-0.8 H EOSINOPHIL # (test code = EO#) 0.00 K/mm3 0.0-0.5 N BASOPHIL # (test code = BA#) 0.08 K/mm3 0.0-0.2 N NUCLEATED RBC # (test code = NRBC#) 0.00 K/mm3 0.0-0.1 N MANUAL DIFF REQUIRED (test code = MDIFF) YES STAIN ACCEPTABILITY (test code = STN ACCEPTABLE) TOTAL CELLS COUNTED (test code = TCC) #CELLS SEGMENTED NEUTROPHILS (test code = SEG) % 39-69 LYMPHOCYTE (test code = LYMPH) % 25-55 MONOCYTE (test code = MON) % 0-10 EOSINOPHIL (test code = EOS) % 0.0-5.0 CABOT RINGS (test code = CAB) MORPHOLOGY COMMENT (test code = MOC) PLATELET ESTIMATE (test code = PLTEST) PLATELET MORPHOLOGY (test code = PLTMORPH) CBC W/MANUAL [id number] 03:16:00* Test Item Value Reference Range Interpretation Comments WHITE BLOOD CELL (test code = WBC) 38.6 K/mm3 4.5-12.5 H RESULT VERIFIED BY REPEAT ANALYSIS RED BLOOD CELL (test code = RBC) 2.78 mill/mm3 3.7-5.2 L HEMOGLOBIN (test code = HGB) 8.7 gram/dL 11.5-15.5 L HEMATOCRIT (test code = HCT) 25.8 % 36.0-46.0 L MEAN CELL VOLUME (test code = MCV) 92.8 fL 80-98 N MEAN CELL HGB (test code = MCH) 31.3 picogram 27.0-33.0 N MEAN CELL HGB CONCETRATION (test code = MCHC) 33.7 gram/dL 33.0-36. 0 N RED CELL DISTRIBUTION WIDTH (test code = RDW) 12.4 % 11.6-16. 2 N RED CELL DISTRIBUTION WIDTH SD (test code = RDW-SD) 42.4 fL 37 .0-51.0 N PLATELET COUNT (test code = PLT) 235 K/mm3 150-450 N MEAN PLATELET VOLUME (test code = MPV) 12.8 fL 6.7-11.0 H IMMATURE GRANULOCYTE % (test code = IG%) 1.5 % 0.0-5.0 N NUCLEATED RBC % (test code = NRBC%) 0.0 % 0-0 N NEUTROPHIL # (test code = NT#) 35.80 K/mm3 1.8-7.7 H IMMATURE GRANULOCYTE # (test code = IG#) 0.58 x10 3/uL 0-0.03 H LYMPHOCYTE # (test code = LY#) 1.20 K/mm3 1.0-5.0 N MONOCYTE # (test code = MO#) 0.97 K/mm3 0-0.8 H EOSINOPHIL # (test code = EO#) 0.00 K/mm3 0.0-0.5 N BASOPHIL # (test code = BA#) 0.08 K/mm3 0.0-0.2 N NUCLEATED RBC # (test code = NRBC#) 0.00 K/mm3 0.0-0.1 N MANUAL DIFF REQUIRED (test code = MDIFF) YES STAIN ACCEPTABILITY (test code = STN ACCEPTABLE) TOTAL CELLS COUNTED (test code = TCC) #CELLS SEGMENTED NEUTROPHILS (test code = SEG) % 39-69 LYMPHOCYTE (test code = LYMPH) % 25-55 MONOCYTE (test code = MON) % 0-10 EOSINOPHIL (test code = EOS) % 0.0-5.0 MORPHOLOGY COMMENT (test code = MOC) PLATELET ESTIMATE (test code = PLTEST) PLATELET MORPHOLOGY (test code = PLTMORPH) CBC W/MANUAL [id number] 03:16:00* Test Item Value Reference Range Interpretation Comments WHITE BLOOD CELL (test code = WBC) 38.6 K/mm3 4.5-12.5 H RESULT VERIFIED BY REPEAT ANALYSIS RED BLOOD CELL (test code = RBC) 2.78 mill/mm3 3.7-5.2 L HEMOGLOBIN (test code = HGB) 8.7 gram/dL 11.5-15.5 L HEMATOCRIT (test code = HCT) 25.8 % 36.0-46.0 L MEAN CELL VOLUME (test code = MCV) 92.8 fL 80-98 N MEAN CELL HGB (test code = MCH) 31.3 picogram 27.0-33.0 N MEAN CELL HGB CONCETRATION (test code = MCHC) 33.7 gram/dL 33.0-36. 0 N RED CELL DISTRIBUTION WIDTH (test code = RDW) 12.4 % 11.6-16. 2 N RED CELL DISTRIBUTION WIDTH SD (test code = RDW-SD) 42.4 fL 37 .0-51.0 N PLATELET COUNT (test code = PLT) 235 K/mm3 150-450 N MEAN PLATELET VOLUME (test code = MPV) 12.8 fL 6.7-11.0 H IMMATURE GRANULOCYTE % (test code = IG%) 1.5 % 0.0-5.0 N NUCLEATED RBC % (test code = NRBC%) 0.0 % 0-0 N NEUTROPHIL # (test code = NT#) 35.80 K/mm3 1.8-7.7 H IMMATURE GRANULOCYTE # (test code = IG#) 0.58 x10 3/uL 0-0.03 H LYMPHOCYTE # (test code = LY#) 1.20 K/mm3 1.0-5.0 N MONOCYTE # (test code = MO#) 0.97 K/mm3 0-0.8 H EOSINOPHIL # (test code = EO#) 0.00 K/mm3 0.0-0.5 N BASOPHIL # (test code = BA#) 0.08 K/mm3 0.0-0.2 N NUCLEATED RBC # (test code = NRBC#) 0.00 K/mm3 0.0-0.1 N MANUAL DIFF REQUIRED (test code = MDIFF) YES STAIN ACCEPTABILITY (test code = STN ACCEPTABLE) TOTAL CELLS COUNTED (test code = TCC) #CELLS SEGMENTED NEUTROPHILS (test code = SEG) % 39-69 LYMPHOCYTE (test code = LYMPH) % 25-55 MONOCYTE (test code = MON) % 0-10 MORPHOLOGY COMMENT (test code = MOC) PLATELET ESTIMATE (test code = PLTEST) PLATELET MORPHOLOGY (test code = PLTMORPH) CBC W/MANUAL [id number] 03:15:00* Test Item Value Reference Range Interpretation Comments WHITE BLOOD CELL (test code = WBC) 38.6 K/mm3 4.5-12.5 H RESULT VERIFIED BY REPEAT ANALYSIS RED BLOOD CELL (test code = RBC) 2.78 mill/mm3 3.7-5.2 L HEMOGLOBIN (test code = HGB) 8.7 gram/dL 11.5-15.5 L HEMATOCRIT (test code = HCT) 25.8 % 36.0-46.0 L MEAN CELL VOLUME (test code = MCV) 92.8 fL 80-98 N MEAN CELL HGB (test code = MCH) 31.3 picogram 27.0-33.0 N MEAN CELL HGB CONCETRATION (test code = MCHC) 33.7 gram/dL 33.0-36. 0 N RED CELL DISTRIBUTION WIDTH (test code = RDW) 12.4 % 11.6-16. 2 N RED CELL DISTRIBUTION WIDTH SD (test code = RDW-SD) 42.4 fL 37 .0-51.0 N PLATELET COUNT (test code = PLT) 235 K/mm3 150-450 N MEAN PLATELET VOLUME (test code = MPV) 12.8 fL 6.7-11.0 H IMMATURE GRANULOCYTE % (test code = IG%) 1.5 % 0.0-5.0 N NUCLEATED RBC % (test code = NRBC%) 0.0 % 0-0 N NEUTROPHIL # (test code = NT#) 35.80 K/mm3 1.8-7.7 H IMMATURE GRANULOCYTE # (test code = IG#) 0.58 x10 3/uL 0-0.03 H LYMPHOCYTE # (test code = LY#) 1.20 K/mm3 1.0-5.0 N MONOCYTE # (test code = MO#) 0.97 K/mm3 0-0.8 H EOSINOPHIL # (test code = EO#) 0.00 K/mm3 0.0-0.5 N BASOPHIL # (test code = BA#) 0.08 K/mm3 0.0-0.2 N NUCLEATED RBC # (test code = NRBC#) 0.00 K/mm3 0.0-0.1 N MANUAL DIFF REQUIRED (test code = MDIFF) YES STAIN ACCEPTABILITY (test code = STN ACCEPTABLE) TOTAL CELLS COUNTED (test code = TCC) #CELLS SEGMENTED NEUTROPHILS (test code = SEG) % 39-69 LYMPHOCYTE (test code = LYMPH) % 25-55 MONOCYTE (test code = MON) % 0-10 EOSINOPHIL (test code = EOS) % 0.0-5.0 CABOT RINGS (test code = CAB) MORPHOLOGY COMMENT (test code = MOC) PLATELET ESTIMATE (test code = PLTEST) PLATELET MORPHOLOGY (test code = PLTMORPH) CBC W/MANUAL [id number] 03:15:00* Test Item Value Reference Range Interpretation Comments WHITE BLOOD CELL (test code = WBC) 38.6 K/mm3 4.5-12.5 H RESULT VERIFIED BY REPEAT ANALYSIS RED BLOOD CELL (test code = RBC) 2.78 mill/mm3 3.7-5.2 L HEMOGLOBIN (test code = HGB) 8.7 gram/dL 11.5-15.5 L HEMATOCRIT (test code = HCT) 25.8 % 36.0-46.0 L MEAN CELL VOLUME (test code = MCV) 92.8 fL 80-98 N MEAN CELL HGB (test code = MCH) 31.3 picogram 27.0-33.0 N MEAN CELL HGB CONCETRATION (test code = MCHC) 33.7 gram/dL 33.0-36. 0 N RED CELL DISTRIBUTION WIDTH (test code = RDW) 12.4 % 11.6-16. 2 N RED CELL DISTRIBUTION WIDTH SD (test code = RDW-SD) 42.4 fL 37 .0-51.0 N PLATELET COUNT (test code = PLT) 235 K/mm3 150-450 N MEAN PLATELET VOLUME (test code = MPV) 12.8 fL 6.7-11.0 H IMMATURE GRANULOCYTE % (test code = IG%) 1.5 % 0.0-5.0 N NUCLEATED RBC % (test code = NRBC%) 0.0 % 0-0 N NEUTROPHIL # (test code = NT#) 35.80 K/mm3 1.8-7.7 H IMMATURE GRANULOCYTE # (test code = IG#) 0.58 x10 3/uL 0-0.03 H LYMPHOCYTE # (test code = LY#) 1.20 K/mm3 1.0-5.0 N MONOCYTE # (test code = MO#) 0.97 K/mm3 0-0.8 H EOSINOPHIL # (test code = EO#) 0.00 K/mm3 0.0-0.5 N BASOPHIL # (test code = BA#) 0.08 K/mm3 0.0-0.2 N NUCLEATED RBC # (test code = NRBC#) 0.00 K/mm3 0.0-0.1 N MANUAL DIFF REQUIRED (test code = MDIFF) YES STAIN ACCEPTABILITY (test code = STN ACCEPTABLE) TOTAL CELLS COUNTED (test code = TCC) #CELLS SEGMENTED NEUTROPHILS (test code = SEG) % 39-69 LYMPHOCYTE (test code = LYMPH) % 25-55 MONOCYTE (test code = MON) % 0-10 EOSINOPHIL (test code = EOS) % 0.0-5.0 CABOT RINGS (test code = CAB) MORPHOLOGY COMMENT (test code = MOC) PLATELET ESTIMATE (test code = PLTEST) PLATELET MORPHOLOGY (test code = PLTMORPH) [id number] 01:46:00* Test Item Value Reference Range Interpretation Comments GLUBED (test code = GLUBED) 435 mg/dL 74-106 H [facility] certified [facility] CR[facility] ILL SHIREEN SPEC~ [id number] 00:29:00* Test Item Value Reference Range Interpretation Comments GLUBED (test code = GLUBED) 461 mg/dL 74-106 H Performed by certified carousel operator at [facility] BASIC METABOLIC [id number] 22:41:00* Test Item Value Reference Range Interpretation Comments SODIUM (test code = NA) 132 mmol/L 136-145 L POTASSIUM (test code = K) 5.0 mmol/L 3.5-5.1 N CHLORIDE (test code = CL) 101.0 mmol/L 98-107 N CARBON DIOXIDE (test code = CO2) 24.0 mmol/L 21-32 N ANION GAP (test code = GAP) 12.0 10-20 N GLUCOSE (test code = GLU) 477 mg/dL 74-106 H BLOOD UREA NITROGEN (test code = BUN) 59 mg/dL 7-18 H GLOMERULAR FILTRATION RATE (test code = GFR) 22 mL/min >=60 Estimated GFR by using Modified MDRD formula.Chronic kidney disease is defined as either kidney damageor GFR <60 mL/min/1.73 m2 for >3 months. CREATININE (test code = CREAT) 2.30 mg/dL 0.55-1.02 H Note change in reference range due to change in reagent. BUN/CREATININE RATIO (test code = BUN/CREA) 25.5 10-20 H CALCIUM (test code = CA) 8.1 mg/dL 8.5-10.1 L [id number] 22:13:00* Test Item Value Reference Range Interpretation Comments GLUBED (test code = GLUBED) > 500 mg/dL 74-106 HH [facility] certified car[facility] operator [facility]~ BASIC METABOLIC [id number] 18:37:00* Test Item Value Reference Range Interpretation Comments SODIUM (test code = NA) 135 mmol/L 136-145 L POTASSIUM (test code = K) 4.9 mmol/L 3.5-5.1 N CHLORIDE (test code = CL) 100.0 mmol/L 98-107 N CARBON DIOXIDE (test code = CO2) 21.0 mmol/L 21-32 N ANION GAP (test code = GAP) 18.9 10-20 N GLUCOSE (test code = GLU) 575 mg/dL 74-106 HH Re sults called to [id number] by SHELBYLT 05/24/19 1744Critical results verified and read back by Nurse? Y BLOOD UREA NITROGEN (test code = BUN) 57 mg/dL 7-18 H RESULT VERIFIED BY REPEAT ANALYSIS GLOMERULAR FILTRATION RATE (test code = GFR) 23 mL/min >=60 Estimated GFR by using Modified MDRD formula.Chronic kidney disease is defined as either kidney damageor GFR <60 mL/min/1.73 m2 for >3 months. CREATININE (test code = CREAT) 2.20 mg/dL 0.55-1.02 H Note change in reference range due to change in reagent. BUN/CREATININE RATIO (test code = BUN/CREA) 25.9 10-20 H CALCIUM (test code = CA) 8.1 mg/dL 8.5-10.1 L [id number] 18:37:00* Test Item Value Reference Range Interpretation Comments PHOSPHORUS (test code = PHOS) 4.7 mg/dL 2.5-4.9 N [id number] 18:37:00* Test Item Value Reference Range Interpretation Comments MAGNESIUM (test code = MAG) 1.9 mg/dL 1.8-2.4 N AB HIV 1 18:22:00* Test Item Value Reference Range Interpretation Comments AB HIV 1 2 (test code = [id number]) Nonreactive NonReactive It is recognized that currently available assays for thedetection of antibodies to HIV-1 and/or HIV-2 may notdetect all infected individuals. A negative test result doesnot exclude the possibility of exposure to or infection withHIV. HIV antibodies may be undetectable in some stages ofthe infection and in some clinical conditions. BASIC METABOLIC [id number] 17:47:00* Test Item Value Reference Range Interpretation Comments SODIUM (test code = NA) 135 mmol/L 136-145 L POTASSIUM (test code = K) 4.9 mmol/L 3.5-5.1 N CHLORIDE (test code = CL) 100.0 mmol/L 98-107 N CARBON DIOXIDE (test code = CO2) 21.0 mmol/L 21-32 N ANION GAP (test code = GAP) 18.9 10-20 N GLUCOSE (test code = GLU) 575 mg/dL 74-106 Re sults called to [id number] by V.LAB.LT 05/24/19 1744Critical results verified and read back by Nurse? Y BLOOD UREA NITROGEN (test code = BUN) 57 mg/dL 7-18 H GLOMERULAR FILTRATION RATE (test code = GFR) 23 mL/min >=60 Estimated GFR by using Modified MDRD formula.Chronic kidney disease is defined as either kidney damageor GFR <60 mL/min/1.73 m2 for >3 months. CREATININE (test code = CREAT) 2.20 mg/dL 0.55-1.02 H Note change in reference range due to change in reagent. BUN/CREATININE RATIO (test code = BUN/CREA) 25.9 10-20 H CALCIUM (test code = CA) 8.1 mg/dL 8.5-10.1 L [id number] 17:47:00* Test Item Value Reference Range Interpretation Comments PHOSPHORUS (test code = PHOS) 4.7 mg/dL 2.5-4.9 N [id number] 17:47:00* Test Item Value Reference Range Interpretation Comments MAGNESIUM (test code = MAG) 1.9 mg/dL 1.8-2.4 N BASIC METABOLIC [id number] 17:29:00* Test Item Value Reference Range Interpretation Comments SODIUM (test code = NA) 135 mmol/L 136-145 L POTASSIUM (test code = K) 4.9 mmol/L 3.5-5.1 N CHLORIDE (test code = CL) 100.0 mmol/L 98-107 N CARBON DIOXIDE (test code = CO2) mmol/L 21-32 ANION GAP (test code = GAP) 10-20 GLUCOSE (test code = GLU) mg/dL 74-106 BLOOD UREA NITROGEN (test code = BUN) mg/dL 7-18 GLOMERULAR FILTRATION RATE (test code = GFR) mL/min >=60 CREATININE (test code = CREAT) mg/dL 0.55-1.02 BUN/CREATININE RATIO (test code = BUN/CREA) 10-20 CALCIUM (test code = CA) 8.1 mg/dL 8.5-10.1 L [id number] 17:29:00* Test Item Value Reference Range Interpretation Comments PHOSPHORUS (test code = PHOS) mg/dL 2.5-4.9 [id number] 17:29:00* Test Item Value Reference Range Interpretation Comments MAGNESIUM (test code = MAG) mg/dL 1.8-2.4 [id number] 16:14:00* Test Item Value Reference Range Interpretation Comments GLUBED (test code = GLUBED) > 500 mg/dL 74-106 HH Performed by certified carousel operator [facility] Notified~ [id number] 11:37:00* Test Item Value Reference Range Interpretation Comments GLUBED (test code = GLUBED) 434 mg/dL 74-106 H Performed by certified carousel operator at [facility] CBC W/O [id number] 08:59:00* Test Item Value Reference Range Interpretation Comments WHITE BLOOD CELL (test code = WBC) 41.2 K/mm3 4.5-12.5 H Has "Path Review" been performed on patient's currentadmission?If yes, please insert path review specimen here Y If not, please order "Path Review" for the followingcriteria:1/ WBC count over 40,000/mm3 or below 2,000/mm32/ Platelet counts over 1,000,000/mm3, or below 10,000/mm3, or with abnormal morphology.3/ Abnormal red cell morphology or inclusions which are severe (> 3+) , widespread, or d ifficult to classify.4/ Abnormal white blood cell morphology: Blasts present in peripheral blood of any patient as a new finding. Abnormal cells suspected of being blasts. Patients with large numbers of immature cells in peripheral blood. Unusual cells or cells not easily classified in peripheral blood.5/ Any smear in which the technologist is uncertain of the classification or the disease.RESULT VERIFIED BY REPEAT ANALYSIS RED BLOOD CELL (test code = RBC) 3.44 mill/mm3 3.7-5.2 L HEMOGLOBIN (test code = HGB) 10.6 gram/dL 11.5-15.5 L HEMATOCRIT (test code = HCT) 32.1 % 36.0-46.0 L MEAN CELL VOLUME (test code = MCV) 93.3 fL 80-98 N MEAN CELL HGB (test code = MCH) 30.8 picogram 27.0-33.0 N MEAN CELL HGB CONCETRATION (test code = MCHC) 33.0 gram/dL 33.0-36. 0 N RED CELL DISTRIBUTION WIDTH (test code = RDW) 12.2 % 11.6-16. 2 N PLATELET COUNT (test code = PLT) 206 K/mm3 150-450 N MEAN PLATELET VOLUME (test code = MPV) 13.0 fL 6.7-11.0 H PATHOLOGISTS [id number] 08:59:00* Test Item Value Reference Range Interpretation Comments PATHOLOGISTS FINDINGS (test code = PATH) YES PATH NOTES LEUKOCYTOSISNEUTROPHILIA WITH LEFT SHIFTMILD ANEMIASLIDE REVIEWED BY PATHOLOGIST WBC [id number] 08:59:00* Test Item Value Reference Range Interpretation Comments STAIN ACCEPTABILITY (test code = STN ACCEPTABLE) STAIN ACCEPTABLE TOTAL CELLS COUNTED (test code = TCC) 115 #CELLS SEGMENTED NEUTROPHILS (test code = SEG) 93.9 % 39-69 H BAND NEUTROPHIL (test code = BAND) 3.5 % 0-10 N LYMPHOCYTE (test code = LYMPH) 0.9 % 25-55 L REACTIVE LYMPH (test code = RELYMPH) 0 % MONOCYTE (test code = MON) 1.7 % 0-10 N EOSINOPHIL (test code = EOS) 0 % 0.0-5.0 N BASOPHIL (test code = BASO) 0 % 0-1.0 N METAMYELOCYTE (test code = META) 0 % 0-0 N MYELOCYTE (test code = MYELO) 0 % 0.0-0.0 N PROMYELOCYTE (test code = PROM) 0 % 0-0 N MORPHOLOGY COMMENT (test code = MOC) NORMAL PLATELET ESTIMATE (test code = PLTEST) ADEQUATE PLATELET MORPHOLOGY (test code = PLTMORPH) NORMAL IMMATURE FORMS (test code = IMMAT) 0 % 0-0 N - XR CHEST 1 [id number] 08:59:00 FAX: Andrew Guerra [phone] [place]: St: ADM FAX: Jak Dumont MD [phone] FAX: Kevin Bass MD [phone] Name: DAYANA RICHARDSON EDWIGE [facility] : 1960 Age/S: 59/F [address] Unit #: [id number] Loc: V.S24 [address] [place] [address] Phys: Andrew Guerra Acct: [id number] Dis Date: Status: ADM IN ONE #: [phone] Exam Date: 05/24/2019 0831 FAX #: [phone] Reason: updated pulm view. EXAMS: CPT CODE: [id number] XR CHEST 1 V [id number] REASON FOR EXAM: updated pulm view. Exam Order Date: 05/24/2019 12:00 AM Ordering M.DAnn: SOHAN Roberts PROCEDURE: - XR CHES T 1 V COMPARISON: Frontal chest x-ray May 23, 2019 FINDINGS: Patchy opacities in the mid to lower left lung appear simila r to the previous exam and may represent an infectious process. Remainder of the lungs are clear. Lungs are also hyperinflated which may reflect an air-trapping process. Cardiomediastinal silhouette is normal in size for technique. The mediastinal contours are within normal limits. Degenerative changes of the spine are stable from the previous ex am. Prior cholecystectomy. IMPRESSION: No significant change from prior exam. at 0859 Reported and kimberly d by: Klaus Wylie MD CC: Andrew Guerra; Jak Dumont MD; Kevin Veronica MD Technologist: Tavia Salas(R); Angela Rodriguez RT(R) Trnscrd Date/Time/By: 05/24/2019 (0859) : By: [email or web address] Orig Print D/T : S: 05/24/2019 (09) PAGE 1 Sig magui Report [id number] 07:51:00* Test Item Value Reference Range Interpretation Comments GLUBED (test code = GLUBED) 322 mg/dL 74-106 H Performed by certified carousel operator at [facility] AG STREPTOCOCCUS [id number] 07:44:00* Test Item Value Reference Range Interpretation Comments AG STREPTOCOCCUS PNEUMO (test code = STREPPNAG) NEGATIVE NEGATI VE LEGIONELLA ANTIGEN,URINE,[id number] 07:44:00* Test Item Value Reference Range Interpretation Comments LEGIONELLA ANTIGEN,URINE,YANIRA (test code = LEGAGUR) NEGATIVE NEG ATIVE [id number] 07:40:00* Test Item Value Reference Range Interpretation Comments GLYCOSYLATED HEMOGLOBIN (HA1C) (test code = GLYHGB) 13.3 % HbA1 4. 8-6.0 H ESTIMATED AVERAGE GLUCOSE (test code = EAG) 335 MG/DL CBC W/MANUAL [id number] 06:53:00* Test Item Value Reference Range Interpretation Comments WHITE BLOOD CELL (test code = WBC) 48.4 K/mm3 4.5-12.5 H RESULT VERIFIED BY REPEAT ANALYSISHas "Path Review" been performed on patient's currentadmission?YESIf yes, please insert path review specimen here 1001;H141 If not, please order "Path Review" for the followingcriteria:1/ WBC count over 40,000/mm3 or below 2,000/mm32/ Platelet counts over 1,000,000/mm3, or below 10,000/mm3, or with abnormal morphology.3/ Abnormal red cell morphology or inclusions which are severe (> 3+) , widespread, or difficult to classify.4/ Abnormal white blood cell morphology: Blasts present in peripheral blood of any patient as a new finding. Abnormal cells suspected of being blasts. Patients with large numbers of immature cells in peripheral blood. Unusual cells or cells not easily classified in peripheral blood.5/ Any smear in which the technologist is uncertain of the classification or the disease. RED BLOOD CELL (test code = RBC) 3.08 mill/mm3 3.7-5.2 L HEMOGLOBIN (test code = HGB) 9.5 gram/dL 11.5-15.5 L HEMATOCRIT (test code = HCT) 29.2 % 36.0-46.0 L MEAN CELL VOLUME (test code = MCV) 94.8 fL 80-98 N MEAN CELL HGB (test code = MCH) 30.8 picogram 27.0-33.0 N MEAN CELL HGB CONCETRATION (test code = MCHC) 32.5 gram/dL 33.0-36. 0 L RED CELL DISTRIBUTION WIDTH (test code = RDW) 12.7 % 11.6-16. 2 N RED CELL DISTRIBUTION WIDTH SD (test code = RDW-SD) 44.2 fL 37 .0-51.0 N PLATELET COUNT (test code = PLT) 246 K/mm3 150-450 N MEAN PLATELET VOLUME (test code = MPV) 13.3 fL 6.7-11.0 H IMMATURE GRANULOCYTE % (test code = IG%) 3.0 % 0.0-5.0 N NUCLEATED RBC % (test code = NRBC%) 0.0 % 0-0 N NEUTROPHIL # (test code = NT#) 44.86 K/mm3 1.8-7.7 H IMMATURE GRANULOCYTE # (test code = IG#) 1.46 x10 3/uL 0-0.03 H LYMPHOCYTE # (test code = LY#) 1.46 K/mm3 1.0-5.0 N MONOCYTE # (test code = MO#) 0.54 K/mm3 0-0.8 N EOSINOPHIL # (test code = EO#) 0.00 K/mm3 0.0-0.5 N BASOPHIL # (test code = BA#) 0.04 K/mm3 0.0-0.2 N NUCLEATED RBC # (test code = NRBC#) 0.00 K/mm3 0.0-0.1 N MANUAL DIFF REQUIRED (test code = MDIFF) YES STAIN ACCEPTABILITY (test code = STN ACCEPTABLE) STAIN ACCEPTABLE TOTAL CELLS COUNTED (test code = TCC) 115 #CELLS SEGMENTED NEUTROPHILS (test code = SEG) 89.5 % 39-69 H BAND NEUTROPHIL (test code = BAND) 8.7 % 0-10 N LYMPHOCYTE (test code = LYMPH) 0.9 % 25-55 L REACTIVE LYMPH (test code = RELYMPH) 0 % MONOCYTE (test code = MON) 0 % 0-10 N EOSINOPHIL (test code = EOS) 0.9 % 0.0-5.0 N BASOPHIL (test code = BASO) 0 % 0-1.0 N METAMYELOCYTE (test code = META) 0 % 0-0 N MYELOCYTE (test code = MYELO) 0 % 0.0-0.0 N PROMYELOCYTE (test code = PROM) 0 % 0-0 N POIKILOCYTOSIS (test code = POIK) 2+ ANISOCYTOSIS (test code = ANISO) 2+ MACROCYTOSIS (test code = MACR) 1+ MORPHOLOGY COMMENT (test code = MOC) NORMAL PLATELET ESTIMATE (test code = PLTEST) ADEQUATE PLATELET MORPHOLOGY (test code = PLTMORPH) NORMAL IMMATURE FORMS (test code = IMMAT) 0 % 0-0 N COMPREHENSIVE METABOLIC [id number] 06:31:00* Test Item Value Reference Range Interpretation Comments SODIUM (test code = NA) 137 mmol/L 136-145 N POTASSIUM (test code = K) 5.3 mmol/L 3.5-5.1 H CHLORIDE (test code = CL) 103.0 mmol/L 98-107 N CARBON DIOXIDE (test code = CO2) 21.0 mmol/L 21-32 N ANION GAP (test code = GAP) 18.3 10-20 N GLUCOSE (test code = GLU) 300 mg/dL 74-106 H BLOOD UREA NITROGEN (test code = BUN) 37 mg/dL 7-18 H RESULT VERIFIED BY REPEAT ANALYSIS GLOMERULAR FILTRATION RATE (test code = GFR) 29 mL/min >=60 Estimated GFR by using Modified MDRD formula.Chronic kidney disease is defined as either kidney damageor GFR <60 mL/min/1.73 m2 for >3 months. CREATININE (test code = CREAT) 1.80 mg/dL 0.55-1.02 H Note change in reference range due to change in reagent. BUN/CREATININE RATIO (test code = BUN/CREA) 20.6 10-20 H TOTAL PROTEIN (test code = PROT) 5.9 gram/dL 6.4-8.2 L ALBUMIN (test code = ALB) 2.6 g/dL 3.4-5.0 L GLOBULIN (test code = GLOB) 3.3 gram/dL 2.7-4.2 N ALBUMIN/GLOBULIN RATIO (test code = A/G) 0.8 0.75-1.50 N CALCIUM (test code = CA) 8.2 mg/dL 8.5-10.1 L BILIRUBIN TOTAL (test code = BILT) 0.30 mg/dL 0.0-1.0 N SGOT/AST (test code = AST) 13 IUnit/L 15-37 L SGPT/ALT (test code = ALT) 12 IUnit/L 12-78 N ALKALINE PHOSPHATASE TOTAL (test code = ALKP) 154 IUnit/L 45-117 H Note change in reference range due to change in reagent. COMPREHENSIVE METABOLIC [id number] 06:10:00* Test Item Value Reference Range Interpretation Comments SODIUM (test code = NA) 137 mmol/L 136-145 N POTASSIUM (test code = K) 5.3 mmol/L 3.5-5.1 H CHLORIDE (test code = CL) 103.0 mmol/L 98-107 N CARBON DIOXIDE (test code = CO2) mmol/L 21-32 ANION GAP (test code = GAP) 10-20 GLUCOSE (test code = GLU) mg/dL 74-106 BLOOD UREA NITROGEN (test code = BUN) mg/dL 7-18 GLOMERULAR FILTRATION RATE (test code = GFR) mL/min >=60 CREATININE (test code = CREAT) mg/dL 0.55-1.02 BUN/CREATININE RATIO (test code = BUN/CREA) 10-20 TOTAL PROTEIN (test code = PROT) gram/dL 6.4-8.2 ALBUMIN (test code = ALB) g/dL 3.4-5.0 GLOBULIN (test code = GLOB) gram/dL 2.7-4.2 ALBUMIN/GLOBULIN RATIO (test code = A/G) 0.75-1.50 CALCIUM (test code = CA) mg/dL 8.5-10.1 BILIRUBIN TOTAL (test code = BILT) mg/dL 0.0-1.0 SGOT/AST (test code = AST) IUnit/L 15-37 SGPT/ALT (test code = ALT) IUnit/L 12-78 ALKALINE PHOSPHATASE TOTAL (test code = ALKP) IUnit/L 45-117 CBC W/MANUAL [id number] 06:04:00* Test Item Value Reference Range Interpretation Comments WHITE BLOOD CELL (test code = WBC) 48.4 K/mm3 4.5-12.5 H RESULT VERIFIED BY REPEAT ANALYSISHas "Path Review" been performed on patient's currentadmission?YESIf yes, please insert path review specimen here 1001;[id number] If not, please order "Path Review" for the followingcriteria:1/ WBC count over 40,000/mm3 or below 2,000/mm32/ Platelet counts over 1,000,000/mm3, or below 10,000/mm3, or with abnormal morphology.3/ Abnormal red cell morphology or inclusions which are severe (> 3+) , widespread, or difficult to classify.4/ Abnormal white blood cell morphology: Blasts present in peripheral blood of any patient as a new finding. Abnormal cells suspected of being blasts. Patients with large numbers of immature cells in peripheral blood. Unusual cells or cells not easily classified in peripheral blood.5/ Any smear in which the technologist is uncertain of the classification or the disease. RED BLOOD CELL (test code = RBC) 3.08 mill/mm3 3.7-5.2 L HEMOGLOBIN (test code = HGB) 9.5 gram/dL 11.5-15.5 L HEMATOCRIT (test code = HCT) 29.2 % 36.0-46.0 L MEAN CELL VOLUME (test code = MCV) 94.8 fL 80-98 N MEAN CELL HGB (test code = MCH) 30.8 picogram 27.0-33.0 N MEAN CELL HGB CONCETRATION (test code = MCHC) 32.5 gram/dL 33.0-36. 0 L RED CELL DISTRIBUTION WIDTH (test code = RDW) 12.7 % 11.6-16. 2 N RED CELL DISTRIBUTION WIDTH SD (test code = RDW-SD) 44.2 fL 37 .0-51.0 N PLATELET COUNT (test code = PLT) 246 K/mm3 150-450 N MEAN PLATELET VOLUME (test code = MPV) 13.3 fL 6.7-11.0 H IMMATURE GRANULOCYTE % (test code = IG%) 3.0 % 0.0-5.0 N NUCLEATED RBC % (test code = NRBC%) 0.0 % 0-0 N NEUTROPHIL # (test code = NT#) 44.86 K/mm3 1.8-7.7 H IMMATURE GRANULOCYTE # (test code = IG#) 1.46 x10 3/uL 0-0.03 H LYMPHOCYTE # (test code = LY#) 1.46 K/mm3 1.0-5.0 N MONOCYTE # (test code = MO#) 0.54 K/mm3 0-0.8 N EOSINOPHIL # (test code = EO#) 0.00 K/mm3 0.0-0.5 N BASOPHIL # (test code = BA#) 0.04 K/mm3 0.0-0.2 N NUCLEATED RBC # (test code = NRBC#) 0.00 K/mm3 0.0-0.1 N MANUAL DIFF REQUIRED (test code = MDIFF) YES STAIN ACCEPTABILITY (test code = STN ACCEPTABLE) TOTAL CELLS COUNTED (test code = TCC) #CELLS SEGMENTED NEUTROPHILS (test code = SEG) % 39-69 LYMPHOCYTE (test code = LYMPH) % 25-55 MONOCYTE (test code = MON) % 0-10 EOSINOPHIL (test code = EOS) % 0.0-5.0 CABOT RINGS (test code = CAB) MORPHOLOGY COMMENT (test code = MOC) PLATELET ESTIMATE (test code = PLTEST) PLATELET MORPHOLOGY (test code = PLTMORPH) CBC W/MANUAL [id number] 06:04:00* Test Item Value Reference Range Interpretation Comments WHITE BLOOD CELL (test code = WBC) 48.4 K/mm3 4.5-12.5 H RESULT VERIFIED BY REPEAT ANALYSISHas "Path Review" been performed on patient's currentadmission?YESIf yes, please insert path review specimen here 1001;[id number] If not, please order "Path Review" for the followingcriteria:1/ WBC count over 40,000/mm3 or below 2,000/mm32/ Platelet counts over 1,000,000/mm3, or below 10,000/mm3, or with abnormal morphology.3/ Abnormal red cell morphology or inclusions which are severe (> 3+) , widespread, or difficult to classify.4/ Abnormal white blood cell morphology: Blasts present in peripheral blood of any patient as a new finding. Abnormal cells suspected of being blasts. Patients with large numbers of immature cells in peripheral blood. Unusual cells or cells not easily classified in peripheral blood.5/ Any smear in which the technologist is uncertain of the classification or the disease. RED BLOOD CELL (test code = RBC) 3.08 mill/mm3 3.7-5.2 L HEMOGLOBIN (test code = HGB) 9.5 gram/dL 11.5-15.5 L HEMATOCRIT (test code = HCT) 29.2 % 36.0-46.0 L MEAN CELL VOLUME (test code = MCV) 94.8 fL 80-98 N MEAN CELL HGB (test code = MCH) 30.8 picogram 27.0-33.0 N MEAN CELL HGB CONCETRATION (test code = MCHC) 32.5 gram/dL 33.0-36. 0 L RED CELL DISTRIBUTION WIDTH (test code = RDW) 12.7 % 11.6-16. 2 N RED CELL DISTRIBUTION WIDTH SD (test code = RDW-SD) 44.2 fL 37 .0-51.0 N PLATELET COUNT (test code = PLT) 246 K/mm3 150-450 N MEAN PLATELET VOLUME (test code = MPV) 13.3 fL 6.7-11.0 H IMMATURE GRANULOCYTE % (test code = IG%) 3.0 % 0.0-5.0 N NUCLEATED RBC % (test code = NRBC%) 0.0 % 0-0 N NEUTROPHIL # (test code = NT#) 44.86 K/mm3 1.8-7.7 H IMMATURE GRANULOCYTE # (test code = IG#) 1.46 x10 3/uL 0-0.03 H LYMPHOCYTE # (test code = LY#) 1.46 K/mm3 1.0-5.0 N MONOCYTE # (test code = MO#) 0.54 K/mm3 0-0.8 N EOSINOPHIL # (test code = EO#) 0.00 K/mm3 0.0-0.5 N BASOPHIL # (test code = BA#) 0.04 K/mm3 0.0-0.2 N NUCLEATED RBC # (test code = NRBC#) 0.00 K/mm3 0.0-0.1 N MANUAL DIFF REQUIRED (test code = MDIFF) YES STAIN ACCEPTABILITY (test code = STN ACCEPTABLE) TOTAL CELLS COUNTED (test code = TCC) #CELLS SEGMENTED NEUTROPHILS (test code = SEG) % 39-69 LYMPHOCYTE (test code = LYMPH) % 25-55 MONOCYTE (test code = MON) % 0-10 EOSINOPHIL (test code = EOS) % 0.0-5.0 [place]INGS (test code = CAB) MORPHOLOGY COMMENT (test code = MOC) PLATELET ESTIMATE (test code = PLTEST) PLATELET MORPHOLOGY (test code = PLTMORPH) CBC W/MANUAL [id number] 06:04:00* Test Item Value Reference Range Interpretation Comments WHITE BLOOD CELL (test code = WBC) 48.4 K/mm3 4.5-12.5 H RESULT VERIFIED BY REPEAT ANALYSISHas "Path Review" been performed on patient's currentadmission?YESIf yes, please insert path review specimen here 1001;[id number] If not, please order "Path Review" for the followingcriteria:1/ WBC count over 40,000/mm3 or below 2,000/mm32/ Platelet counts over 1,000,000/mm3, or below 10,000/mm3, or with abnormal morphology.3/ Abnormal red cell morphology or inclusions which are severe (> 3+) , widespread, or difficult to classify.4/ Abnormal white blood cell morphology: Blasts present in peripheral blood of any patient as a new finding. Abnormal cells suspected of being blasts. Patients with large numbers of immature cells in peripheral blood. Unusual cells or cells not easily classified in peripheral blood.5/ Any smear in which the technologist is uncertain of the classification or the disease. RED BLOOD CELL (test code = RBC) 3.08 mill/mm3 3.7-5.2 L HEMOGLOBIN (test code = HGB) 9.5 gram/dL 11.5-15.5 L HEMATOCRIT (test code = HCT) 29.2 % 36.0-46.0 L MEAN CELL VOLUME (test code = MCV) 94.8 fL 80-98 N MEAN CELL HGB (test code = MCH) 30.8 picogram 27.0-33.0 N MEAN CELL HGB CONCETRATION (test code = MCHC) 32.5 gram/dL 33.0-36. 0 L RED CELL DISTRIBUTION WIDTH (test code = RDW) 12.7 % 11.6-16. 2 N RED CELL DISTRIBUTION WIDTH SD (test code = RDW-SD) 44.2 fL 37 .0-51.0 N PLATELET COUNT (test code = PLT) 246 K/mm3 150-450 N MEAN PLATELET VOLUME (test code = MPV) 13.3 fL 6.7-11.0 H IMMATURE GRANULOCYTE % (test code = IG%) 3.0 % 0.0-5.0 N NUCLEATED RBC % (test code = NRBC%) 0.0 % 0-0 N NEUTROPHIL # (test code = NT#) 44.86 K/mm3 1.8-7.7 H IMMATURE GRANULOCYTE # (test code = IG#) 1.46 x10 3/uL 0-0.03 H LYMPHOCYTE # (test code = LY#) 1.46 K/mm3 1.0-5.0 N MONOCYTE # (test code = MO#) 0.54 K/mm3 0-0.8 N EOSINOPHIL # (test code = EO#) 0.00 K/mm3 0.0-0.5 N BASOPHIL # (test code = BA#) 0.04 K/mm3 0.0-0.2 N NUCLEATED RBC # (test code = NRBC#) 0.00 K/mm3 0.0-0.1 N MANUAL DIFF REQUIRED (test code = MDIFF) YES STAIN ACCEPTABILITY (test code = STN ACCEPTABLE) TOTAL CELLS COUNTED (test code = TCC) #CELLS SEGMENTED NEUTROPHILS (test code = SEG) % 39-69 LYMPHOCYTE (test code = LYMPH) % 25-55 MONOCYTE (test code = MON) % 0-10 EOSINOPHIL (test code = EOS) % 0.0-5.0 MORPHOLOGY COMMENT (test code = MOC) PLATELET ESTIMATE (test code = PLTEST) PLATELET MORPHOLOGY (test code = PLTMORPH) CBC W/MANUAL [id number] 06:04:00* Test Item Value Reference Range Interpretation Comments WHITE BLOOD CELL (test code = WBC) 48.4 K/mm3 4.5-12.5 H RESULT VERIFIED BY REPEAT ANALYSISHas "Path Review" been performed on patient's currentadmission?YESIf yes, please insert path review specimen here 1001;[id number] If not, please order "Path Review" for the followingcriteria:1/ WBC count over 40,000/mm3 or below 2,000/mm32/ Platelet counts over 1,000,000/mm3, or below 10,000/mm3, or with abnormal morphology.3/ Abnormal red cell morphology or inclusions which are severe (> 3+) , widespread, or difficult to classify.4/ Abnormal white blood cell morphology: Blasts present in peripheral blood of any patient as a new finding. Abnormal cells suspected of being blasts. Patients with large numbers of immature cells in peripheral blood. Unusual cells or cells not easily classified in peripheral blood.5/ Any smear in which the technologist is uncertain of the classification or the disease. RED BLOOD CELL (test code = RBC) 3.08 mill/mm3 3.7-5.2 L HEMOGLOBIN (test code = HGB) 9.5 gram/dL 11.5-15.5 L HEMATOCRIT (test code = HCT) 29.2 % 36.0-46.0 L MEAN CELL VOLUME (test code = MCV) 94.8 fL 80-98 N MEAN CELL HGB (test code = MCH) 30.8 picogram 27.0-33.0 N MEAN CELL HGB CONCETRATION (test code = MCHC) 32.5 gram/dL 33.0-36. 0 L RED CELL DISTRIBUTION WIDTH (test code = RDW) 12.7 % 11.6-16. 2 N RED CELL DISTRIBUTION WIDTH SD (test code = RDW-SD) 44.2 fL 37 .0-51.0 N PLATELET COUNT (test code = PLT) 246 K/mm3 150-450 N MEAN PLATELET VOLUME (test code = MPV) 13.3 fL 6.7-11.0 H IMMATURE GRANULOCYTE % (test code = IG%) 3.0 % 0.0-5.0 N NUCLEATED RBC % (test code = NRBC%) 0.0 % 0-0 N NEUTROPHIL # (test code = NT#) 44.86 K/mm3 1.8-7.7 H IMMATURE GRANULOCYTE # (test code = IG#) 1.46 x10 3/uL 0-0.03 H LYMPHOCYTE # (test code = LY#) 1.46 K/mm3 1.0-5.0 N MONOCYTE # (test code = MO#) 0.54 K/mm3 0-0.8 N EOSINOPHIL # (test code = EO#) 0.00 K/mm3 0.0-0.5 N BASOPHIL # (test code = BA#) 0.04 K/mm3 0.0-0.2 N NUCLEATED RBC # (test code = NRBC#) 0.00 K/mm3 0.0-0.1 N MANUAL DIFF REQUIRED (test code = MDIFF) YES STAIN ACCEPTABILITY (test code = STN ACCEPTABLE) TOTAL CELLS COUNTED (test code = TCC) #CELLS SEGMENTED NEUTROPHILS (test code = SEG) % 39-69 LYMPHOCYTE (test code = LYMPH) % 25-55 MONOCYTE (test code = MON) % 0-10 MORPHOLOGY COMMENT (test code = MOC) PLATELET ESTIMATE (test code = PLTEST) PLATELET MORPHOLOGY (test code = PLTMORPH) CBC W/MANUAL [id number] 06:04:00* Test Item Value Reference Range Interpretation Comments WHITE BLOOD CELL (test code = WBC) 48.4 K/mm3 4.5-12.5 H RESULT VERIFIED BY REPEAT ANALYSISHas "Path Review" been performed on patient's currentadmission?YESIf yes, please insert path review specimen here 1001;[id number] If not, please order "Path Review" for the followingcriteria:1/ WBC count over 40,000/mm3 or below 2,000/mm32/ Platelet counts over 1,000,000/mm3, or below 10,000/mm3, or with abnormal morphology.3/ Abnormal red cell morphology or inclusions which are severe (> 3+) , widespread, or difficult to classify.4/ Abnormal white blood cell morphology: Blasts present in peripheral blood of any patient as a new finding. Abnormal cells suspected of being blasts. Patients with large numbers of immature cells in peripheral blood. Unusual cells or cells not easily classified in peripheral blood.5/ Any smear in which the technologist is uncertain of the classification or the disease. RED BLOOD CELL (test code = RBC) 3.08 mill/mm3 3.7-5.2 L HEMOGLOBIN (test code = HGB) 9.5 gram/dL 11.5-15.5 L HEMATOCRIT (test code = HCT) 29.2 % 36.0-46.0 L MEAN CELL VOLUME (test code = MCV) 94.8 fL 80-98 N MEAN CELL HGB (test code = MCH) 30.8 picogram 27.0-33.0 N MEAN CELL HGB CONCETRATION (test code = MCHC) 32.5 gram/dL 33.0-36. 0 L RED CELL DISTRIBUTION WIDTH (test code = RDW) 12.7 % 11.6-16. 2 N RED CELL DISTRIBUTION WIDTH SD (test code = RDW-SD) 44.2 fL 37 .0-51.0 N PLATELET COUNT (test code = PLT) 246 K/mm3 150-450 N MEAN PLATELET VOLUME (test code = MPV) 13.3 fL 6.7-11.0 H IMMATURE GRANULOCYTE % (test code = IG%) 3.0 % 0.0-5.0 N NUCLEATED RBC % (test code = NRBC%) 0.0 % 0-0 N NEUTROPHIL # (test code = NT#) 44.86 K/mm3 1.8-7.7 H IMMATURE GRANULOCYTE # (test code = IG#) 1.46 x10 3/uL 0-0.03 H LYMPHOCYTE # (test code = LY#) 1.46 K/mm3 1.0-5.0 N MONOCYTE # (test code = MO#) 0.54 K/mm3 0-0.8 N EOSINOPHIL # (test code = EO#) 0.00 K/mm3 0.0-0.5 N BASOPHIL # (test code = BA#) 0.04 K/mm3 0.0-0.2 N NUCLEATED RBC # (test code = NRBC#) 0.00 K/mm3 0.0-0.1 N MANUAL DIFF REQUIRED (test code = MDIFF) YES STAIN ACCEPTABILITY (test code = STN ACCEPTABLE) TOTAL CELLS COUNTED (test code = TCC) #CELLS SEGMENTED NEUTROPHILS (test code = SEG) % 39-69 LYMPHOCYTE (test code = LYMPH) % 25-55 MONOCYTE (test code = MON) % 0-10 EOSINOPHIL (test code = EOS) % 0.0-5.0 [place] (test code = CAB) MORPHOLOGY COMMENT (test code = MOC) PLATELET ESTIMATE (test code = PLTEST) PLATELET MORPHOLOGY (test code = PLTMORPH) URINALYSIS [id number] 05:56:00* Test Item Value Reference Range Interpretation Comments UA COLOR (test code = COLU) YELLOW YELLOW UA APPEARANCE (test code = APPU) CLEAR CLEAR UA GLUCOSE DIPSTICK (test code = DGLUU) >1000 (4+) mg/dL NEGATIVE UA BILIRUBIN DIPSTICK (test code = BILU) NEGATIVE mg/dL NEGATIVE UA KETONE DIPSTICK (test code = KETU) TRACE mg/dL NEGATIVE A UA SPECIFIC GRAVITY (test code = SGU) 1.030 1.001-1.035 UA BLOOD DIPSTICK (test code = ERINN) Negative mg/dL NEGATIVE UA PH DIPSTICK (test code = EVELYN) 5.0 5.0-8.0 UA PROTEIN DIPSTICK (test code = PROU) 30 (1+) mg/dL NEGATIVE A UA UROBILINIOGEN DIPSTICK (test code = URO) Normal mg/dL NEGATIVE UA NITRITE DIPSTICK (test code = SMITH) NEGATIVE NEGATIVE UA LEUKOCYTE ESTERASE W REFLEX (test code = LEUUR) NEGATIVE Jaz[place]/uL NEGATIVE UA WBC (test code = WBCU) 0-5 per HPF 0-5 UA RBC (test code = RBCU) NONE SEEN #/HPF 0-5 UA EPITHELIAL CELLS (test code = EPIU) FEW per HPF FEW UA BACTERIA (test code = BACU) FEW #/HPF NONE A UA HYALINE CAST (test code = HYALU) 11-20 #/LPF 0-5 A UA MUCUS (test code = MUCU) FEW #/LPF FEW Urine Source? Clean CatchCBC W/MANUAL [id number] 20:48:00* Test Item Value Reference Range Interpretation Comments WHITE BLOOD CELL (test code = WBC) 40.0 K/mm3 4.5-12.5 H RED BLOOD CELL (test code = RBC) 3.04 mill/mm3 3.7-5.2 L HEMOGLOBIN (test code = HGB) 9.5 gram/dL 11.5-15.5 L HEMATOCRIT (test code = HCT) 28.5 % 36.0-46.0 L MEAN CELL VOLUME (test code = MCV) 93.8 fL 80-98 N MEAN CELL HGB (test code = MCH) 31.3 picogram 27.0-33.0 N MEAN CELL HGB CONCETRATION (test code = MCHC) 33.3 gram/dL 33.0-36. 0 N RED CELL DISTRIBUTION WIDTH (test code = RDW) 12.4 % 11.6-16. 2 N RED CELL DISTRIBUTION WIDTH SD (test code = RDW-SD) 42.9 fL 37 .0-51.0 N PLATELET COUNT (test code = PLT) 226 K/mm3 150-450 N MEAN PLATELET VOLUME (test code = MPV) 12.8 fL 6.7-11.0 H IMMATURE GRANULOCYTE % (test code = IG%) 1.9 % 0.0-5.0 N NUCLEATED RBC % (test code = NRBC%) 0.0 % 0-0 N NEUTROPHIL # (test code = NT#) 37.78 K/mm3 1.8-7.7 H IMMATURE GRANULOCYTE # (test code = IG#) 0.74 x10 3/uL 0-0.03 H LYMPHOCYTE # (test code = LY#) 1.00 K/mm3 1.0-5.0 N MONOCYTE # (test code = MO#) 0.41 K/mm3 0-0.8 N EOSINOPHIL # (test code = EO#) 0.00 K/mm3 0.0-0.5 N BASOPHIL # (test code = BA#) 0.05 K/mm3 0.0-0.2 N NUCLEATED RBC # (test code = NRBC#) 0.00 K/mm3 0.0-0.1 N MANUAL DIFF REQUIRED (test code = MDIFF) YES STAIN ACCEPTABILITY (test code = STN ACCEPTABLE) STAIN ACCEPTABLE TOTAL CELLS COUNTED (test code = TCC) 114 #CELLS SEGMENTED NEUTROPHILS (test code = SEG) 97.4 % 39-69 H BAND NEUTROPHIL (test code = BAND) 0 % 0-10 N LYMPHOCYTE (test code = LYMPH) 2.6 % 25-55 L REACTIVE LYMPH (test code = RELYMPH) 0 % MONOCYTE (test code = MON) 0 % 0-10 N EOSINOPHIL (test code = EOS) 0 % 0.0-5.0 N BASOPHIL (test code = BASO) 0 % 0-1.0 N METAMYELOCYTE (test code = META) 0 % 0-0 N MYELOCYTE (test code = MYELO) 0 % 0.0-0.0 N PROMYELOCYTE (test code = PROM) 0 % 0-0 N ANISOCYTOSIS (test code = ANISO) 1+ PLATELET ESTIMATE (test code = PLTEST) ADEQUATE PLATELET MORPHOLOGY (test code = PLTMORPH) NORMAL IMMATURE FORMS (test code = IMMAT) 0 % 0-0 N CBC W/MANUAL [id number] 19:54:00* Test Item Value Reference Range Interpretation Comments WHITE BLOOD CELL (test code = WBC) 40.0 K/mm3 4.5-12.5 H RED BLOOD CELL (test code = RBC) 3.04 mill/mm3 3.7-5.2 L HEMOGLOBIN (test code = HGB) 9.5 gram/dL 11.5-15.5 L HEMATOCRIT (test code = HCT) 28.5 % 36.0-46.0 L MEAN CELL VOLUME (test code = MCV) 93.8 fL 80-98 N MEAN CELL HGB (test code = MCH) 31.3 picogram 27.0-33.0 N MEAN CELL HGB CONCETRATION (test code = MCHC) 33.3 gram/dL 33.0-36. 0 N RED CELL DISTRIBUTION WIDTH (test code = RDW) 12.4 % 11.6-16. 2 N RED CELL DISTRIBUTION WIDTH SD (test code = RDW-SD) 42.9 fL 37 .0-51.0 N PLATELET COUNT (test code = PLT) 226 K/mm3 150-450 N MEAN PLATELET VOLUME (test code = MPV) 12.8 fL 6.7-11.0 H IMMATURE GRANULOCYTE % (test code = IG%) 1.9 % 0.0-5.0 N NUCLEATED RBC % (test code = NRBC%) 0.0 % 0-0 N NEUTROPHIL # (test code = NT#) 37.78 K/mm3 1.8-7.7 H IMMATURE GRANULOCYTE # (test code = IG#) 0.74 x10 3/uL 0-0.03 H LYMPHOCYTE # (test code = LY#) 1.00 K/mm3 1.0-5.0 N MONOCYTE # (test code = MO#) 0.41 K/mm3 0-0.8 N EOSINOPHIL # (test code = EO#) 0.00 K/mm3 0.0-0.5 N BASOPHIL # (test code = BA#) 0.05 K/mm3 0.0-0.2 N NUCLEATED RBC # (test code = NRBC#) 0.00 K/mm3 0.0-0.1 N MANUAL DIFF REQUIRED (test code = MDIFF) YES STAIN ACCEPTABILITY (test code = STN ACCEPTABLE) TOTAL CELLS COUNTED (test code = TCC) #CELLS SEGMENTED NEUTROPHILS (test code = SEG) % 39-69 LYMPHOCYTE (test code = LYMPH) % 25-55 MONOCYTE (test code = MON) % 0-10 EOSINOPHIL (test code = EOS) % 0.0-5.0 [place] (test code = CAB) MORPHOLOGY COMMENT (test code = MOC) PLATELET ESTIMATE (test code = PLTEST) PLATELET MORPHOLOGY (test code = PLTMORPH) CBC W/MANUAL [id number] 19:54:00* Test Item Value Reference Range Interpretation Comments WHITE BLOOD CELL (test code = WBC) 40.0 K/mm3 4.5-12.5 H RED BLOOD CELL (test code = RBC) 3.04 mill/mm3 3.7-5.2 L HEMOGLOBIN (test code = HGB) 9.5 gram/dL 11.5-15.5 L HEMATOCRIT (test code = HCT) 28.5 % 36.0-46.0 L MEAN CELL VOLUME (test code = MCV) 93.8 fL 80-98 N MEAN CELL HGB (test code = MCH) 31.3 picogram 27.0-33.0 N MEAN CELL HGB CONCETRATION (test code = MCHC) 33.3 gram/dL 33.0-36. 0 N RED CELL DISTRIBUTION WIDTH (test code = RDW) 12.4 % 11.6-16. 2 N RED CELL DISTRIBUTION WIDTH SD (test code = RDW-SD) 42.9 fL 37 .0-51.0 N PLATELET COUNT (test code = PLT) 226 K/mm3 150-450 N MEAN PLATELET VOLUME (test code = MPV) 12.8 fL 6.7-11.0 H IMMATURE GRANULOCYTE % (test code = IG%) 1.9 % 0.0-5.0 N NUCLEATED RBC % (test code = NRBC%) 0.0 % 0-0 N NEUTROPHIL # (test code = NT#) 37.78 K/mm3 1.8-7.7 H IMMATURE GRANULOCYTE # (test code = IG#) 0.74 x10 3/uL 0-0.03 H LYMPHOCYTE # (test code = LY#) 1.00 K/mm3 1.0-5.0 N MONOCYTE # (test code = MO#) 0.41 K/mm3 0-0.8 N EOSINOPHIL # (test code = EO#) 0.00 K/mm3 0.0-0.5 N BASOPHIL # (test code = BA#) 0.05 K/mm3 0.0-0.2 N NUCLEATED RBC # (test code = NRBC#) 0.00 K/mm3 0.0-0.1 N MANUAL DIFF REQUIRED (test code = MDIFF) YES STAIN ACCEPTABILITY (test code = STN ACCEPTABLE) TOTAL CELLS COUNTED (test code = TCC) #CELLS SEGMENTED NEUTROPHILS (test code = SEG) % 39-69 LYMPHOCYTE (test code = LYMPH) % 25-55 MONOCYTE (test code = MON) % 0-10 EOSINOPHIL (test code = EOS) % 0.0-5.0 [place] (test code = CAB) MORPHOLOGY COMMENT (test code = MOC) PLATELET ESTIMATE (test code = PLTEST) PLATELET MORPHOLOGY (test code = PLTMORPH) CBC W/MANUAL [id number] 19:54:00* Test Item Value Reference Range Interpretation Comments WHITE BLOOD CELL (test code = WBC) 40.0 K/mm3 4.5-12.5 H RED BLOOD CELL (test code = RBC) 3.04 mill/mm3 3.7-5.2 L HEMOGLOBIN (test code = HGB) 9.5 gram/dL 11.5-15.5 L HEMATOCRIT (test code = HCT) 28.5 % 36.0-46.0 L MEAN CELL VOLUME (test code = MCV) 93.8 fL 80-98 N MEAN CELL HGB (test code = MCH) 31.3 picogram 27.0-33.0 N MEAN CELL HGB CONCETRATION (test code = MCHC) 33.3 gram/dL 33.0-36. 0 N RED CELL DISTRIBUTION WIDTH (test code = RDW) 12.4 % 11.6-16. 2 N RED CELL DISTRIBUTION WIDTH SD (test code = RDW-SD) 42.9 fL 37 .0-51.0 N PLATELET COUNT (test code = PLT) 226 K/mm3 150-450 N MEAN PLATELET VOLUME (test code = MPV) 12.8 fL 6.7-11.0 H IMMATURE GRANULOCYTE % (test code = IG%) 1.9 % 0.0-5.0 N NUCLEATED RBC % (test code = NRBC%) 0.0 % 0-0 N NEUTROPHIL # (test code = NT#) 37.78 K/mm3 1.8-7.7 H IMMATURE GRANULOCYTE # (test code = IG#) 0.74 x10 3/uL 0-0.03 H LYMPHOCYTE # (test code = LY#) 1.00 K/mm3 1.0-5.0 N MONOCYTE # (test code = MO#) 0.41 K/mm3 0-0.8 N EOSINOPHIL # (test code = EO#) 0.00 K/mm3 0.0-0.5 N BASOPHIL # (test code = BA#) 0.05 K/mm3 0.0-0.2 N NUCLEATED RBC # (test code = NRBC#) 0.00 K/mm3 0.0-0.1 N MANUAL DIFF REQUIRED (test code = MDIFF) YES STAIN ACCEPTABILITY (test code = STN ACCEPTABLE) TOTAL CELLS COUNTED (test code = TCC) #CELLS SEGMENTED NEUTROPHILS (test code = SEG) % 39-69 LYMPHOCYTE (test code = LYMPH) % 25-55 MONOCYTE (test code = MON) % 0-10 EOSINOPHIL (test code = EOS) % 0.0-5.0 MORPHOLOGY COMMENT (test code = MOC) PLATELET ESTIMATE (test code = PLTEST) PLATELET MORPHOLOGY (test code = PLTMORPH) CBC W/MANUAL [id number] 19:54:00* Test Item Value Reference Range Interpretation Comments WHITE BLOOD CELL (test code = WBC) 40.0 K/mm3 4.5-12.5 H RED BLOOD CELL (test code = RBC) 3.04 mill/mm3 3.7-5.2 L HEMOGLOBIN (test code = HGB) 9.5 gram/dL 11.5-15.5 L HEMATOCRIT (test code = HCT) 28.5 % 36.0-46.0 L MEAN CELL VOLUME (test code = MCV) 93.8 fL 80-98 N MEAN CELL HGB (test code = MCH) 31.3 picogram 27.0-33.0 N MEAN CELL HGB CONCETRATION (test code = MCHC) 33.3 gram/dL 33.0-36. 0 N RED CELL DISTRIBUTION WIDTH (test code = RDW) 12.4 % 11.6-16. 2 N RED CELL DISTRIBUTION WIDTH SD (test code = RDW-SD) 42.9 fL 37 .0-51.0 N PLATELET COUNT (test code = PLT) 226 K/mm3 150-450 N MEAN PLATELET VOLUME (test code = MPV) 12.8 fL 6.7-11.0 H IMMATURE GRANULOCYTE % (test code = IG%) 1.9 % 0.0-5.0 N NUCLEATED RBC % (test code = NRBC%) 0.0 % 0-0 N NEUTROPHIL # (test code = NT#) 37.78 K/mm3 1.8-7.7 H IMMATURE GRANULOCYTE # (test code = IG#) 0.74 x10 3/uL 0-0.03 H LYMPHOCYTE # (test code = LY#) 1.00 K/mm3 1.0-5.0 N MONOCYTE # (test code = MO#) 0.41 K/mm3 0-0.8 N EOSINOPHIL # (test code = EO#) 0.00 K/mm3 0.0-0.5 N BASOPHIL # (test code = BA#) 0.05 K/mm3 0.0-0.2 N NUCLEATED RBC # (test code = NRBC#) 0.00 K/mm3 0.0-0.1 N MANUAL DIFF REQUIRED (test code = MDIFF) YES STAIN ACCEPTABILITY (test code = STN ACCEPTABLE) TOTAL CELLS COUNTED (test code = TCC) #CELLS SEGMENTED NEUTROPHILS (test code = SEG) % 39-69 LYMPHOCYTE (test code = LYMPH) % 25-55 MONOCYTE (test code = MON) % 0-10 MORPHOLOGY COMMENT (test code = MOC) PLATELET ESTIMATE (test code = PLTEST) PLATELET MORPHOLOGY (test code = PLTMORPH) CBC W/MANUAL [id number] 19:54:00* Test Item Value Reference Range Interpretation Comments WHITE BLOOD CELL (test code = WBC) 40.0 K/mm3 4.5-12.5 H RED BLOOD CELL (test code = RBC) 3.04 mill/mm3 3.7-5.2 L HEMOGLOBIN (test code = HGB) 9.5 gram/dL 11.5-15.5 L HEMATOCRIT (test code = HCT) 28.5 % 36.0-46.0 L MEAN CELL VOLUME (test code = MCV) 93.8 fL 80-98 N MEAN CELL HGB (test code = MCH) 31.3 picogram 27.0-33.0 N MEAN CELL HGB CONCETRATION (test code = MCHC) 33.3 gram/dL 33.0-36. 0 N RED CELL DISTRIBUTION WIDTH (test code = RDW) 12.4 % 11.6-16. 2 N RED CELL DISTRIBUTION WIDTH SD (test code = RDW-SD) 42.9 fL 37 .0-51.0 N PLATELET COUNT (test code = PLT) 226 K/mm3 150-450 N MEAN PLATELET VOLUME (test code = MPV) 12.8 fL 6.7-11.0 H IMMATURE GRANULOCYTE % (test code = IG%) 1.9 % 0.0-5.0 N NUCLEATED RBC % (test code = NRBC%) 0.0 % 0-0 N NEUTROPHIL # (test code = NT#) 37.78 K/mm3 1.8-7.7 H IMMATURE GRANULOCYTE # (test code = IG#) 0.74 x10 3/uL 0-0.03 H LYMPHOCYTE # (test code = LY#) 1.00 K/mm3 1.0-5.0 N MONOCYTE # (test code = MO#) 0.41 K/mm3 0-0.8 N EOSINOPHIL # (test code = EO#) 0.00 K/mm3 0.0-0.5 N BASOPHIL # (test code = BA#) 0.05 K/mm3 0.0-0.2 N NUCLEATED RBC # (test code = NRBC#) 0.00 K/mm3 0.0-0.1 N MANUAL DIFF REQUIRED (test code = MDIFF) YES STAIN ACCEPTABILITY (test code = STN ACCEPTABLE) TOTAL CELLS COUNTED (test code = TCC) #CELLS SEGMENTED NEUTROPHILS (test code = SEG) % 39-69 LYMPHOCYTE (test code = LYMPH) % 25-55 MONOCYTE (test code = MON) % 0-10 EOSINOPHIL (test code = EOS) % 0.0-5.0 CABOT RINGS (test code = CAB) MORPHOLOGY COMMENT (test code = MOC) PLATELET ESTIMATE (test code = PLTEST) PLATELET MORPHOLOGY (test code = PLTMORPH) BASIC METABOLIC [id number] 19:46:00* Test Item Value Reference Range Interpretation Comments SODIUM (test code = NA) 140 mmol/L 136-145 N POTASSIUM (test code = K) 4.6 mmol/L 3.5-5.1 N CHLORIDE (test code = CL) 107.0 mmol/L 98-107 N CARBON DIOXIDE (test code = CO2) 28.0 mmol/L 21-32 N ANION GAP (test code = GAP) 9.6 10-20 L GLUCOSE (test code = GLU) 99 mg/dL 74-106 N BLOOD UREA NITROGEN (test code = BUN) 22 mg/dL 7-18 H RESULT VERIFIED BY REPEAT ANALYSIS GLOMERULAR FILTRATION RATE (test code = GFR) 31 mL/min >=60 Estimated GFR by using Modified MDRD formula.Chronic kidney disease is defined as either kidney damageor GFR <60 mL/min/1.73 m2 for >3 months. CREATININE (test code = CREAT) 1.70 mg/dL 0.55-1.02 H Note change in reference range due to change in reagent. BUN/CREATININE RATIO (test code = BUN/CREA) 12.9 10-20 N CALCIUM (test code = CA) 8.6 mg/dL 8.5-10.1 N [id number] 19:46:00* Test Item Value Reference Range Interpretation Comments PHOSPHORUS (test code = PHOS) 4.0 mg/dL 2.5-4.9 N [id number] 19:46:00* Test Item Value Reference Range Interpretation Comments MAGNESIUM (test code = MAG) 1.9 mg/dL 1.8-2.4 N CALCIUM [id number] 19:46:00* Test Item Value Reference Range Interpretation Comments CALCIUM IONIZED (test code = DINAH) 1.26 mmol/L 1.12-1.32 N BASIC METABOLIC [id number] 19:38:00* Test Item Value Reference Range Interpretation Comments SODIUM (test code = NA) 140 mmol/L 136-145 N POTASSIUM (test code = K) 4.6 mmol/L 3.5-5.1 N CHLORIDE (test code = CL) 107.0 mmol/L 98-107 N CARBON DIOXIDE (test code = CO2) mmol/L 21-32 ANION GAP (test code = GAP) 10-20 GLUCOSE (test code = GLU) mg/dL 74-106 BLOOD UREA NITROGEN (test code = BUN) mg/dL 7-18 GLOMERULAR FILTRATION RATE (test code = GFR) mL/min >=60 CREATININE (test code = CREAT) mg/dL 0.55-1.02 BUN/CREATININE RATIO (test code = BUN/CREA) 10-20 CALCIUM (test code = CA) mg/dL 8.5-10.1 [id number] 19:38:00* Test Item Value Reference Range Interpretation Comments PHOSPHORUS (test code = PHOS) mg/dL 2.5-4.9 [id number] 19:38:00* Test Item Value Reference Range Interpretation Comments MAGNESIUM (test code = MAG) mg/dL 1.8-2.4 CALCIUM [id number] 19:38:00* Test Item Value Reference Range Interpretation Comments CALCIUM IONIZED (test code = DINAH) 1.26 mmol/L 1.12-1.32 N BASIC METABOLIC [id number] 19:33:00* Test Item Value Reference Range Interpretation Comments SODIUM (test code = NA) mmol/L 136-145 POTASSIUM (test code = K) mmol/L 3.5-5.1 CHLORIDE (test code = CL) mmol/L 98-107 CARBON DIOXIDE (test code = CO2) mmol/L 21-32 ANION GAP (test code = GAP) 10-20 GLUCOSE (test code = GLU) mg/dL 74-106 BLOOD UREA NITROGEN (test code = BUN) mg/dL 7-18 GLOMERULAR FILTRATION RATE (test code = GFR) mL/min >=60 CREATININE (test code = CREAT) mg/dL 0.55-1.02 BUN/CREATININE RATIO (test code = BUN/CREA) 10-20 CALCIUM (test code = CA) mg/dL 8.5-10.1 [id number] 19:33:00* Test Item Value Reference Range Interpretation Comments PHOSPHORUS (test code = PHOS) mg/dL 2.5-4.9 [id number] 19:33:00* Test Item Value Reference Range Interpretation Comments MAGNESIUM (test code = MAG) mg/dL 1.8-2.4 CALCIUM [id number] 19:33:00* Test Item Value Reference Range Interpretation Comments CALCIUM IONIZED (test code = DINAH) 1.26 mmol/L 1.12-1.32 N ARTERIAL BLOOD [id number] 17:02:00* Test Item Value Reference Range Interpretation Comments ARTERIAL BLOOD GAS PH (test code = PHA) 7.30 7.35-7.45 L ARTERIAL BLOOD GAS PCO2 (test code = PCO2A) 50.1 mm Hg 35-45 H ARTERIAL BLOOD GAS PO2 (test code = PO2A) 137.0 mmHg 80-100 H BICARBONATE TOTAL HCO3 (test code = HCO3) 24.1 mmol/L 23.0-27.0 N BASE EXCESS (test code = TONIA) -2.6 mmol/L -3.0-5.0 N ABG O2 SATURATION (test code = SATA) 98.0 % 90.0-98.0 N ABG TYPE (test code = TYPEA) Arterial FIO2 (test code = FIO2A) 50.0 ABG SITE (test code = SITEA) Rt BRACHIAL ARTERY MODIFIED ALLENS (test code = MODALL) Yes CHECK PERFORMED SODIUM (test code = NA/ABG) 137.2 mEq/L 135-148 N POTASSIUM (test code = K/ABG) 4.4 mEq/L 3.5-4.5 N CHLORIDE (test code = CL/ABG) 103 mEq/L 98-106 N GLUCOSE (test code = GLU/ABG) 110 mg/dL 74-99 H HEMATOCRIT (test code = HCT/ABG) 33 % 35-47 L IONIZED CALCIUM (test code = CAIABG) 1.26 mmol/L 1.1-1.37 N TOTAL HGB (test code = THB) 11.2 gram/dL 11.5-15.5 L HGB O2 SAT (test code = HBOSAT) 97.3 % 94.00-98.00 N CARBOXYHEMOGLOBIN (test code = HOHGBT) 0.3 %totalHg 0.5-1.5 LL Results called to and read back by sera 16:54 - 05/23/2019; by linette jc METHEMOGLOBIN (test code = METHGB) 0.4 % 0.0-1.50 N O2 CONTENT (test code = O2CT) 15.6 % vol 18.0-22.0 L [id number] 16:37:00* Test Item Value Reference Range Interpretation Comments GLUBED (test code = GLUBED) 132 mg/dL 74-106 H Performed by certified carousel operator at [facility] [id number] 13:51:00* Test Item Value Reference Range Interpretation Comments TROPONIN-I (test code = TROPI) <0.015 ng/mL 0-0.045 N COMMENTS TO PRODUCT DEVELOPMENT SPECIALIST: COLLECT 3 HOURS AFTER PREVIOUS [id number] 12:09:00* Test Item Value Reference Range Interpretation Comments GLUBED (test code = GLUBED) 339 mg/dL 74-106 H Performed by certified carousel operator at [facility] [id number] 11:27:00* Test Item Value Reference Range Interpretation Comments TROPONIN-I (test code = TROPI) <0.015 ng/mL 0-0.045 N COMMENTS TO PRODUCT DEVELOPMENT SPECIALIST: COLLECT 3 HOURS AFTER PREVIOUS [id number] 10:15:00* Test Item Value Reference Range Interpretation Comments GLUBED (test code = GLUBED) 488 mg/dL 74-106 H Performed by certified carousel operator at [facility] LACTIC [id number] 09:18:00* Test Item Value Reference Range Interpretation Comments LACTIC ACID (test code = LACT) 1.9 mmol/L 0.4-1.9 N CBC W/O [id number] 08:15:00* Test Item Value Reference Range Interpretation Comments WHITE BLOOD CELL (test code = WBC) 41.2 K/mm3 4.5-12.5 H Has "Path Review" been performed on patient's currentadmission?If yes, please insert path review specimen here Y If not, please order "Path Review" for the followingcriteria:1/ WBC count over 40,000/mm3 or below 2,000/mm32/ Platelet counts over 1,000,000/mm3, or below 10,000/mm3, or with abnormal morphology.3/ Abnormal red cell morphology or inclusions which are severe (> 3+) , widespread, or d ifficult to classify.4/ Abnormal white blood cell morphology: Blasts present in peripheral blood of any patient as a new finding. Abnormal cells suspected of being blasts. Patients with large numbers of immature cells in peripheral blood. Unusual cells or cells not easily classified in peripheral blood.5/ Any smear in which the technologist is uncertain of the classification or the disease.RESULT VERIFIED BY REPEAT ANALYSIS RED BLOOD CELL (test code = RBC) 3.44 mill/mm3 3.7-5.2 L HEMOGLOBIN (test code = HGB) 10.6 gram/dL 11.5-15.5 L HEMATOCRIT (test code = HCT) 32.1 % 36.0-46.0 L MEAN CELL VOLUME (test code = MCV) 93.3 fL 80-98 N MEAN CELL HGB (test code = MCH) 30.8 picogram 27.0-33.0 N MEAN CELL HGB CONCETRATION (test code = MCHC) 33.0 gram/dL 33.0-36. 0 N RED CELL DISTRIBUTION WIDTH (test code = RDW) 12.2 % 11.6-16. 2 N PLATELET COUNT (test code = PLT) 206 K/mm3 150-450 N MEAN PLATELET VOLUME (test code = MPV) 13.0 fL 6.7-11.0 H PATHOLOGISTS [id number] 08:15:00* Test Item Value Reference Range Interpretation Comments PATHOLOGISTS FINDINGS (test code = PATH) PATH NOTES WBC [id number] 08:15:00* Test Item Value Reference Range Interpretation Comments STAIN ACCEPTABILITY (test code = STN ACCEPTABLE) STAIN ACCEPTABLE TOTAL CELLS COUNTED (test code = TCC) 115 #CELLS SEGMENTED NEUTROPHILS (test code = SEG) 93.9 % 39-69 H BAND NEUTROPHIL (test code = BAND) 3.5 % 0-10 N LYMPHOCYTE (test code = LYMPH) 0.9 % 25-55 L REACTIVE LYMPH (test code = RELYMPH) 0 % MONOCYTE (test code = MON) 1.7 % 0-10 N EOSINOPHIL (test code = EOS) 0 % 0.0-5.0 N BASOPHIL (test code = BASO) 0 % 0-1.0 N METAMYELOCYTE (test code = META) 0 % 0-0 N MYELOCYTE (test code = MYELO) 0 % 0.0-0.0 N PROMYELOCYTE (test code = PROM) 0 % 0-0 N MORPHOLOGY COMMENT (test code = MOC) NORMAL PLATELET ESTIMATE (test code = PLTEST) ADEQUATE PLATELET MORPHOLOGY (test code = PLTMORPH) NORMAL IMMATURE FORMS (test code = IMMAT) 0 % 0-0 N PROTHROMBIN [id number] 07:33:00* Test Item Value Reference Range Interpretation Comments PROTHROMBIN TIME PATIENT (test code = PTP) 11.9 seconds 9.0-14.0 N INTERNATIONAL NORMAL RATIO (test code = INR) 1.0 0.8-1.2 N The therapeutic range for oral anticoagulant therapy formost indications is an international normalized ratio (INR)of between 2.0 and 3.0. The recommended therapeutic INRrange for various clinical situations is listed below: Clinical Situation INR range Pulmonary e mbolism treatment (2.0-3.0)Venous thrombosis treatmentVenous thrombosis prophylaxis (high risk surgery)Prevention of systemic embolism from: Acute myocardial infarction Valvular heart disease Atrial fibrillation Mechanical prosthetic heart valves (2.5-3.5) IS PATIENT ON ANTICOAGULANTS? NTHROMBOPLASTIN TIME [id number] 07:33:00* Test Item Value Reference Range Interpretation Comments THROMBOPLASTIN TIME PARTIAL (test code = PTT) 30.4 seconds 25.0-36. 5 N IS PATIENT ON ANTICOAGULANTS? NBASIC METABOLIC [id number] 07:21:00* Test Item Value Reference Range Interpretation Comments SODIUM (test code = NA) 136 mmol/L 136-145 N POTASSIUM (test code = K) 4.0 mmol/L 3.5-5.1 N CHLORIDE (test code = CL) 99.0 mmol/L 98-107 N CARBON DIOXIDE (test code = CO2) 26.0 mmol/L 21-32 N ANION GAP (test code = GAP) 15.0 10-20 N GLUCOSE (test code = GLU) 549 mg/dL 74-106 Re sults called to [id number] by IZABELLA 05/23/19 0721Critical results verified and read back by Nurse? Y BLOOD UREA NITROGEN (test code = BUN) 15 mg/dL 7-18 N GLOMERULAR FILTRATION RATE (test code = GFR) 42 mL/min >=60 Estimated GFR by using Modified MDRD formula.Chronic kidney disease is defined as either kidney damageor GFR <60 mL/min/1.73 m2 for >3 months. CREATININE (test code = CREAT) 1.30 mg/dL 0.55-1.02 H Note change in reference range due to change in reagent. BUN/CREATININE RATIO (test code = BUN/CREA) 11.2 10-20 N CALCIUM (test code = CA) 9.1 mg/dL 8.5-10.1 N HEPATIC FUNCTION [id number] 07:21:00* Test Item Value Reference Range Interpretation Comments TOTAL PROTEIN (test code = PROT) 6.9 gram/dL 6.4-8.2 N ALBUMIN (test code = ALB) 2.9 g/dL 3.4-5.0 L GLOBULIN (test code = GLOB) 4.0 gram/dL 2.7-4.2 N ALBUMIN/GLOBULIN RATIO (test code = A/G) 0.7 0.75-1.50 L BILIRUBIN TOTAL (test code = BILT) 0.40 mg/dL 0.0-1.0 N BILIRUBIN DIRECT (test code = BILD) 0.14 mg/dL 0.0-0.20 N SGOT/AST (test code = AST) 6 IUnit/L 15-37 L SGPT/ALT (test code = ALT) 13 IUnit/L 12-78 N ALKALINE PHOSPHATASE TOTAL (test code = ALKP) 180 IUnit/L 45-117 H Note change in reference range due to change in reagent. [id number] 07:21:00* Test Item Value Reference Range Interpretation Comments LIPASE (test code = LIP) 156 U/L 73.0-393.0 N [id number] 07:21:00* Test Item Value Reference Range Interpretation Comments MAGNESIUM (test code = MAG) 1.8 mg/dL 1.8-2.4 N [id number] 07:21:00* Test Item Value Reference Range Interpretation Comments TROPONIN-I (test code = TROPI) <0.015 ng/mL 0-0.045 N B-TYPE NATRIURETIC [id number] 07:11:00* Test Item Value Reference Range Interpretation Comments B-TYPE NATRIURETIC PEPTIDE (test code = BNP) 57.96 pgram/mL 0-100 N BASIC METABOLIC [id number] 07:05:00* Test Item Value Reference Range Interpretation Comments SODIUM (test code = NA) 136 mmol/L 136-145 N POTASSIUM (test code = K) 4.0 mmol/L 3.5-5.1 N CHLORIDE (test code = CL) 99.0 mmol/L 98-107 N CARBON DIOXIDE (test code = CO2) mmol/L 21-32 ANION GAP (test code = GAP) 10-20 GLUCOSE (test code = GLU) mg/dL 74-106 BLOOD UREA NITROGEN (test code = BUN) mg/dL 7-18 GLOMERULAR FILTRATION RATE (test code = GFR) mL/min >=60 CREATININE (test code = CREAT) mg/dL 0.55-1.02 BUN/CREATININE RATIO (test code = BUN/CREA) 10-20 CALCIUM (test code = CA) mg/dL 8.5-10.1 HEPATIC FUNCTION [id number] 07:05:00* Test Item Value Reference Range Interpretation Comments TOTAL PROTEIN (test code = PROT) gram/dL 6.4-8.2 ALBUMIN (test code = ALB) g/dL 3.4-5.0 GLOBULIN (test code = GLOB) gram/dL 2.7-4.2 ALBUMIN/GLOBULIN RATIO (test code = A/G) 0.75-1.50 BILIRUBIN TOTAL (test code = BILT) mg/dL 0.0-1.0 BILIRUBIN DIRECT (test code = BILD) mg/dL 0.0-0.20 SGOT/AST (test code = AST) IUnit/L 15-37 SGPT/ALT (test code = ALT) IUnit/L 12-78 ALKALINE PHOSPHATASE TOTAL (test code = ALKP) IUnit/L 45-117 [id number] 07:05:00* Test Item Value Reference Range Interpretation Comments LIPASE (test code = LIP) U/L 73.0-393.0 [id number] 07:05:00* Test Item Value Reference Range Interpretation Comments MAGNESIUM (test code = MAG) mg/dL 1.8-2.4 [id number] 07:05:00* Test Item Value Reference Range Interpretation Comments TROPONIN-I (test code = TROPI) ng/mL 0-0.045 CBC W/O [id number] 06:53:00* Test Item Value Reference Range Interpretation Comments WHITE BLOOD CELL (test code = WBC) 41.2 K/mm3 4.5-12.5 H Has "Path Review" been performed on patient's currentadmission?If yes, please insert path review specimen here Y If not, please order "Path Review" for the followingcriteria:1/ WBC count over 40,000/mm3 or below 2,000/mm32/ Platelet counts over 1,000,000/mm3, or below 10,000/mm3, or with abnormal morphology.3/ Abnormal red cell morphology or inclusions which are severe (> 3+) , widespread, or d ifficult to classify.4/ Abnormal white blood cell morphology: Blasts present in peripheral blood of any patient as a new finding. Abnormal cells suspected of being blasts. Patients with large numbers of immature cells in peripheral blood. Unusual cells or cells not easily classified in peripheral blood.5/ Any smear in which the technologist is uncertain of the classification or the disease.RESULT VERIFIED BY REPEAT ANALYSIS RED BLOOD CELL (test code = RBC) 3.44 mill/mm3 3.7-5.2 L HEMOGLOBIN (test code = HGB) 10.6 gram/dL 11.5-15.5 L HEMATOCRIT (test code = HCT) 32.1 % 36.0-46.0 L MEAN CELL VOLUME (test code = MCV) 93.3 fL 80-98 N MEAN CELL HGB (test code = MCH) 30.8 picogram 27.0-33.0 N MEAN CELL HGB CONCETRATION (test code = MCHC) 33.0 gram/dL 33.0-36. 0 N RED CELL DISTRIBUTION WIDTH (test code = RDW) 12.2 % 11.6-16. 2 N PLATELET COUNT (test code = PLT) 206 K/mm3 150-450 N MEAN PLATELET VOLUME (test code = MPV) 13.0 fL 6.7-11.0 H CBC W/O [id number] 06:53:00* Test Item Value Reference Range Interpretation Comments WHITE BLOOD CELL (test code = WBC) 41.2 K/mm3 4.5-12.5 H Has "Path Review" been performed on patient's currentadmission?If yes, please insert path review specimen here Y If not, please order "Path Review" for the followingcriteria:1/ WBC count over 40,000/mm3 or below 2,000/mm32/ Platelet counts over 1,000,000/mm3, or below 10,000/mm3, or with abnormal morphology.3/ Abnormal red cell morphology or inclusions which are severe (> 3+) , widespread, or d ifficult to classify.4/ Abnormal white blood cell morphology: Blasts present in peripheral blood of any patient as a new finding. Abnormal cells suspected of being blasts. Patients with large numbers of immature cells in peripheral blood. Unusual cells or cells not easily classified in peripheral blood.5/ Any smear in which the technologist is uncertain of the classification or the disease.RESULT VERIFIED BY REPEAT ANALYSIS RED BLOOD CELL (test code = RBC) 3.44 mill/mm3 3.7-5.2 L HEMOGLOBIN (test code = HGB) 10.6 gram/dL 11.5-15.5 L HEMATOCRIT (test code = HCT) 32.1 % 36.0-46.0 L MEAN CELL VOLUME (test code = MCV) 93.3 fL 80-98 N MEAN CELL HGB (test code = MCH) 30.8 picogram 27.0-33.0 N MEAN CELL HGB CONCETRATION (test code = MCHC) 33.0 gram/dL 33.0-36. 0 N RED CELL DISTRIBUTION WIDTH (test code = RDW) 12.2 % 11.6-16. 2 N PLATELET COUNT (test code = PLT) 206 K/mm3 150-450 N MEAN PLATELET VOLUME (test code = MPV) 13.0 fL 6.7-11.0 H WBC [id number] 06:53:00* Test Item Value Reference Range Interpretation Comments STAIN ACCEPTABILITY (test code = STN ACCEPTABLE) TOTAL CELLS COUNTED (test code = TCC) #CELLS SEGMENTED NEUTROPHILS (test code = SEG) % 39-69 LYMPHOCYTE (test code = LYMPH) % 25-55 MONOCYTE (test code = MON) % 0-10 EOSINOPHIL (test code = EOS) % 0.0-5.0 CABOT RINGS (test code = CAB) MORPHOLOGY COMMENT (test code = MOC) PLATELET ESTIMATE (test code = PLTEST) PLATELET MORPHOLOGY (test code = PLTMORPH) CBC W/O [id number] 06:53:00* Test Item Value Reference Range Interpretation Comments WHITE BLOOD CELL (test code = WBC) 41.2 K/mm3 4.5-12.5 H Has "Path Review" been performed on patient's currentadmission?If yes, please insert path review specimen here Y If not, please order "Path Review" for the followingcriteria:1/ WBC count over 40,000/mm3 or below 2,000/mm32/ Platelet counts over 1,000,000/mm3, or below 10,000/mm3, or with abnormal morphology.3/ Abnormal red cell morphology or inclusions which are severe (> 3+) , widespread, or d ifficult to classify.4/ Abnormal white blood cell morphology: Blasts present in peripheral blood of any patient as a new finding. Abnormal cells suspected of being blasts. Patients with large numbers of immature cells in peripheral blood. Unusual cells or cells not easily classified in peripheral blood.5/ Any smear in which the technologist is uncertain of the classification or the disease.RESULT VERIFIED BY REPEAT ANALYSIS RED BLOOD CELL (test code = RBC) 3.44 mill/mm3 3.7-5.2 L HEMOGLOBIN (test code = HGB) 10.6 gram/dL 11.5-15.5 L HEMATOCRIT (test code = HCT) 32.1 % 36.0-46.0 L MEAN CELL VOLUME (test code = MCV) 93.3 fL 80-98 N MEAN CELL HGB (test code = MCH) 30.8 picogram 27.0-33.0 N MEAN CELL HGB CONCETRATION (test code = MCHC) 33.0 gram/dL 33.0-36. 0 N RED CELL DISTRIBUTION WIDTH (test code = RDW) 12.2 % 11.6-16. 2 N PLATELET COUNT (test code = PLT) 206 K/mm3 150-450 N MEAN PLATELET VOLUME (test code = MPV) 13.0 fL 6.7-11.0 H PATHOLOGISTS [id number] 06:53:00* Test Item Value Reference Range Interpretation Comments PATHOLOGISTS FINDINGS (test code = PATH) PATH NOTES WBC [id number] 06:53:00* Test Item Value Reference Range Interpretation Comments STAIN ACCEPTABILITY (test code = STN ACCEPTABLE) TOTAL CELLS COUNTED (test code = TCC) #CELLS SEGMENTED NEUTROPHILS (test code = SEG) % 39-69 LYMPHOCYTE (test code = LYMPH) % 25-55 MONOCYTE (test code = MON) % 0-10 MORPHOLOGY COMMENT (test code = MOC) PLATELET ESTIMATE (test code = PLTEST) PLATELET MORPHOLOGY (test code = PLTMORPH) - XR CHEST 1 [id number] 06:02:00 FAX: Kevin Bass MD [phone] [place]: St: [facility] FAX: Marni Lemus [phone] Name: DAYANA RICHARDSON [facility] : 1960 Age/S: 59/F [address] [facility] Unit #: [id number] Loc: [place] [address] Phys: Marni Bush MD Acct: [id number] Dis Date: Status: REG ER PHONE #: [phone] Exam Date: 05/23/2019 0503 FAX #: [phone] Reason: Shortness of Breath EXAMS: CPT CODE: [id number] XR CHEST 1 V 39371 EXAM: - XR CHEST 1 V HISTORY: Shortness of breath. COMPARISON: April 26, 2019. FINDINGS: Single AP view of the chest is provided. Heart size and vascularity are within normal limits. Patchy infiltrate left lower lung may represent pneumonia. No effusion, pneumothorax, or acute osseous abnormality. IMPRESSION: Left lower lung infiltrate/pneumonia. at 0602 Reported and signed by: Delvin Barrientos MD CC: Kevin Veronica MD; Marni Bush MD Technologist: KAE MONTOYA RT Trnscrd Date/Time/By: 05/23/2019 (601) : By: [email or web address] Orig Print D/T: S: 05/23/2019 (604) PAGE 1 Signed Report [id number] 10:12:00* Test Item Value Reference Range Interpretation Comments GLUBED (test code = GLUBED) 219 mg/dL 74-106 H Performed by certified carousel operator at [facility] [id number] 10:12:00* Test Item Value Reference Range Interpretation Comments GLUBED (test code = GLUBED) 347 mg/dL 74-106 H Performed by certified carousel operator at [facility] [id number] 10:12:00* Test Item Value Reference Range Interpretation Comments GLUBED (test code = GLUBED) 243 mg/dL 74-106 H Performed by certified carousel operator at [facility] [id number] 10:12:00* Test Item Value Reference Range Interpretation Comments GLUBED (test code = GLUBED) 236 mg/dL 74-106 H Performed by certified carousel operator at [facility] [id number] 10:12:00* Test Item Value Reference Range Interpretation Comments GLUBED (test code = GLUBED) 161 mg/dL 74-106 H Performed by certified carousel operator at [facility] [id number] 10:12:00* Test Item Value Reference Range Interpretation Comments GLUBED (test code = GLUBED) 138 mg/dL 74-106 H Performed by certified carousel operator at [facility] [id number] 11:30:00* Test Item Value Reference Range Interpretation Comments GLUBED (test code = GLUBED) 186 mg/dL 74-106 H Performed by certified carousel operator at [facility] CALCIUM [id number] 07:27:00* Test Item Value Reference Range Interpretation Comments CALCIUM IONIZED (test code = DINAH) 1.29 mmol/L 1.12-1.32 N COMPREHENSIVE METABOLIC [id number] 07:17:00* Test Item Value Reference Range Interpretation Comments SODIUM (test code = NA) 142 mmol/L 136-145 N POTASSIUM (test code = K) 3.8 mmol/L 3.5-5.1 N CHLORIDE (test code = CL) 108.0 mmol/L 98-107 H CARBON DIOXIDE (test code = CO2) 27.0 mmol/L 21-32 N ANION GAP (test code = GAP) 10.8 10-20 N GLUCOSE (test code = GLU) 213 mg/dL 74-106 H BLOOD UREA NITROGEN (test code = BUN) 28 mg/dL 7-18 H GLOMERULAR FILTRATION RATE (test code = GFR) > 60 mL/min >=60 Estimated GFR by using Modified MDRD formula.Chronic kidney disease is defined as either kidney damageor GFR <60 mL/min/1.73 m2 for >3 months. CREATININE (test code = CREAT) 0.90 mg/dL 0.55-1.02 N Note change in reference range due to change in reagent. BUN/CREATININE RATIO (test code = BUN/CREA) 30.6 10-20 H TOTAL PROTEIN (test code = PROT) 6.2 gram/dL 6.4-8.2 L ALBUMIN (test code = ALB) 2.9 g/dL 3.4-5.0 L GLOBULIN (test code = GLOB) 3.3 gram/dL 2.7-4.2 N ALBUMIN/GLOBULIN RATIO (test code = A/G) 0.9 0.75-1.50 N CALCIUM (test code = CA) 9.1 mg/dL 8.5-10.1 N BILIRUBIN TOTAL (test code = BILT) 0.30 mg/dL 0.0-1.0 N SGOT/AST (test code = AST) 9 IUnit/L 15-37 L SGPT/ALT (test code = ALT) 19 IUnit/L 12-78 N ALKALINE PHOSPHATASE TOTAL (test code = ALKP) 94 IUnit/L 45-117 N Note change in reference range due to change in reagent. [id number] 07:17:00* Test Item Value Reference Range Interpretation Comments PHOSPHORUS (test code = PHOS) 3.4 mg/dL 2.5-4.9 N [id number] 07:17:00* Test Item Value Reference Range Interpretation Comments MAGNESIUM (test code = MAG) 1.8 mg/dL 1.8-2.4 N COMPREHENSIVE METABOLIC [id number] 06:59:00* Test Item Value Reference Range Interpretation Comments SODIUM (test code = NA) 142 mmol/L 136-145 N POTASSIUM (test code = K) 3.8 mmol/L 3.5-5.1 N CHLORIDE (test code = CL) 108.0 mmol/L 98-107 H CARBON DIOXIDE (test code = CO2) mmol/L 21-32 ANION GAP (test code = GAP) 10-20 GLUCOSE (test code = GLU) mg/dL 74-106 BLOOD UREA NITROGEN (test code = BUN) mg/dL 7-18 GLOMERULAR FILTRATION RATE (test code = GFR) mL/min >=60 CREATININE (test code = CREAT) mg/dL 0.55-1.02 BUN/CREATININE RATIO (test code = BUN/CREA) 10-20 TOTAL PROTEIN (test code = PROT) gram/dL 6.4-8.2 ALBUMIN (test code = ALB) g/dL 3.4-5.0 GLOBULIN (test code = GLOB) gram/dL 2.7-4.2 ALBUMIN/GLOBULIN RATIO (test code = A/G) 0.75-1.50 CALCIUM (test code = CA) mg/dL 8.5-10.1 BILIRUBIN TOTAL (test code = BILT) mg/dL 0.0-1.0 SGOT/AST (test code = AST) IUnit/L 15-37 SGPT/ALT (test code = ALT) IUnit/L 12-78 ALKALINE PHOSPHATASE TOTAL (test code = ALKP) IUnit/L 45-117 [id number] 06:59:00* Test Item Value Reference Range Interpretation Comments PHOSPHORUS (test code = PHOS) mg/dL 2.5-4.9 [id number] 06:59:00* Test Item Value Reference Range Interpretation Comments MAGNESIUM (test code = MAG) mg/dL 1.8-2.4 CBC W/AUTO [id number] 06:52:00* Test Item Value Reference Range Interpretation Comments WHITE BLOOD CELL (test code = WBC) 17.5 K/mm3 4.5-12.5 H RED BLOOD CELL (test code = RBC) 3.10 mill/mm3 3.7-5.2 L HEMOGLOBIN (test code = HGB) 9.9 gram/dL 11.5-15.5 L HEMATOCRIT (test code = HCT) 29.5 % 36.0-46.0 L MEAN CELL VOLUME (test code = MCV) 95.2 fL 80-98 N MEAN CELL HGB (test code = MCH) 31.9 picogram 27.0-33.0 N MEAN CELL HGB CONCETRATION (test code = MCHC) 33.6 gram/dL 33.0-36. 0 N RED CELL DISTRIBUTION WIDTH (test code = RDW) 12.5 % 11.6-16. 2 N RED CELL DISTRIBUTION WIDTH SD (test code = RDW-SD) 44.0 fL 37 .0-51.0 N PLATELET COUNT (test code = PLT) 144 K/mm3 150-450 L MEAN PLATELET VOLUME (test code = MPV) 13.7 fL 6.7-11.0 H NEUTROPHIL % (test code = NT%) 78.9 % 39.0-69.0 H IMMATURE GRANULOCYTE % (test code = IG%) 0.9 % 0.0-5.0 N LYMPHOCYTE % (test code = LY%) 12.3 % 25.0-55.0 L MONOCYTE % (test code = MO%) 7.4 % 0.0-10.0 N EOSINOPHIL % (test code = EO%) 0.1 % 0.0-5.0 N BASOPHIL % (test code = BA%) 0.4 % 0.0-1.0 N NUCLEATED RBC % (test code = NRBC%) 0.0 % 0-0 N NEUTROPHIL # (test code = NT#) 13.84 K/mm3 1.8-7.7 H IMMATURE GRANULOCYTE # (test code = IG#) 0.16 x10 3/uL 0-0.03 H LYMPHOCYTE # (test code = LY#) 2.15 K/mm3 1.0-5.0 N MONOCYTE # (test code = MO#) 1.29 K/mm3 0-0.8 H EOSINOPHIL # (test code = EO#) 0.01 K/mm3 0.0-0.5 N BASOPHIL # (test code = BA#) 0.07 K/mm3 0.0-0.2 N NUCLEATED RBC # (test code = NRBC#) 0.00 K/mm3 0.0-0.1 N MANUAL DIFF REQUIRED (test code = MDIFF) NO - XR CHEST 1 [id number] 07:07:00 FAX: Anushka Bentno NP [phone] [place]: St: ADM FAX: Josh Roldan MD [phone] FAX: Kevin Bass MD [phone] Name: DAYANA RICHARDSON [facility] : 1960 Age/S: 59/F [address] Unit #: [id number] Loc: V.S20 [place] [address] Phys: Anushka Benton NP Acct: [id number] Dis Date: Status: ADM IN PH ONE #: [phone] Exam Date: 04/26/2019 0542 FAX #: [phone] Reason: SOB EXAMS: CPT CODE: [id number] XR CHEST 1 V 99235 CLINICAL HISTO RY: Shortness of breath TECHNIQUE: AP chest x-ray CO MPARISON: Previous day IMPRESSION: Improved pa tchy bibasilar airspace opacification and subsegmental atelectasis. No p leural effusion. Normal heart size. Atherosclerotic vascular calcificati on of the thoracic aorta. at 0707 Reported and signed by: Rosetta Gray D.O. CC: Anushka Benton NP; Josh Roldan MD; Kevin Veronica MD Technologist: CAMERON BOONE JR; Juliann Weiss Trnscrd Date/Time/By: 04/26/2019 (0707) : By: [email or web address] Chelly P bebo D/T: S: 04/26/2019 (0752) PAGE 1 Signed Report CBC W/MANUAL [id number] 07:02:00* Test Item Value Reference Range Interpretation Comments WHITE BLOOD CELL (test code = WBC) 28.5 K/mm3 4.5-12.5 H RED BLOOD CELL (test code = RBC) 3.47 mill/mm3 3.7-5.2 L HEMOGLOBIN (test code = HGB) 10.9 gram/dL 11.5-15.5 L HEMATOCRIT (test code = HCT) 32.4 % 36.0-46.0 L MEAN CELL VOLUME (test code = MCV) 93.4 fL 80-98 N MEAN CELL HGB (test code = MCH) 31.4 picogram 27.0-33.0 N MEAN CELL HGB CONCETRATION (test code = MCHC) 33.6 gram/dL 33.0-36. 0 N RED CELL DISTRIBUTION WIDTH (test code = RDW) 12.4 % 11.6-16. 2 N RED CELL DISTRIBUTION WIDTH SD (test code = RDW-SD) 42.3 fL 37 .0-51.0 N PLATELET COUNT (test code = PLT) 170 K/mm3 150-450 N MEAN PLATELET VOLUME (test code = MPV) 13.6 fL 6.7-11.0 H IMMATURE GRANULOCYTE % (test code = IG%) 1.2 % 0.0-5.0 N NUCLEATED RBC % (test code = NRBC%) 0.0 % 0-0 N NEUTROPHIL # (test code = NT#) 23.99 K/mm3 1.8-7.7 H IMMATURE GRANULOCYTE # (test code = IG#) 0.35 x10 3/uL 0-0.03 H LYMPHOCYTE # (test code = LY#) 2.45 K/mm3 1.0-5.0 N MONOCYTE # (test code = MO#) 1.62 K/mm3 0-0.8 H EOSINOPHIL # (test code = EO#) 0.01 K/mm3 0.0-0.5 N BASOPHIL # (test code = BA#) 0.10 K/mm3 0.0-0.2 N NUCLEATED RBC # (test code = NRBC#) 0.00 K/mm3 0.0-0.1 N MANUAL DIFF REQUIRED (test code = MDIFF) YES STAIN ACCEPTABILITY (test code = STN ACCEPTABLE) STAIN ACCEPTABLE TOTAL CELLS COUNTED (test code = TCC) 108 #CELLS SEGMENTED NEUTROPHILS (test code = SEG) 89.8 % 39-69 H BAND NEUTROPHIL (test code = BAND) 0 % 0-10 N LYMPHOCYTE (test code = LYMPH) 7.4 % 25-55 L REACTIVE LYMPH (test code = RELYMPH) 0 % MONOCYTE (test code = MON) 2.8 % 0-10 N EOSINOPHIL (test code = EOS) 0 % 0.0-5.0 N BASOPHIL (test code = BASO) 0 % 0-1.0 N METAMYELOCYTE (test code = META) 0 % 0-0 N MYELOCYTE (test code = MYELO) 0 % 0.0-0.0 N PROMYELOCYTE (test code = PROM) 0 % 0-0 N HYPOCHROMIA (test code = HYPO) 1+ POIKILOCYTOSIS (test code = POIK) 1+ ANISOCYTOSIS (test code = ANISO) 1+ MACROCYTOSIS (test code = MACR) 1+ PLATELET ESTIMATE (test code = PLTEST) ADEQUATE PLATELET MORPHOLOGY (test code = PLTMORPH) NORMAL IMMATURE FORMS (test code = IMMAT) 0 % 0-0 N [id number] 06:25:00* Test Item Value Reference Range Interpretation Comments PHOSPHORUS (test code = PHOS) 3.6 mg/dL 2.5-4.9 N [id number] 06:25:00* Test Item Value Reference Range Interpretation Comments MAGNESIUM (test code = MAG) 1.8 mg/dL 1.8-2.4 N [id number] 06:19:00* Test Item Value Reference Range Interpretation Comments PHOSPHORUS (test code = PHOS) mg/dL 2.5-4.9 [id number] 06:19:00* Test Item Value Reference Range Interpretation Comments MAGNESIUM (test code = MAG) 1.8 mg/dL 1.8-2.4 N BASIC METABOLIC [id number] 06:10:00* Test Item Value Reference Range Interpretation Comments SODIUM (test code = NA) 138 mmol/L 136-145 N POTASSIUM (test code = K) 3.2 mmol/L 3.5-5.1 L CHLORIDE (test code = CL) 102.0 mmol/L 98-107 N CARBON DIOXIDE (test code = CO2) 28.0 mmol/L 21-32 N ANION GAP (test code = GAP) 11.2 10-20 N GLUCOSE (test code = GLU) 235 mg/dL 74-106 H BLOOD UREA NITROGEN (test code = BUN) 46 mg/dL 7-18 H RESULT VERIFIED BY REPEAT ANALYSIS GLOMERULAR FILTRATION RATE (test code = GFR) 39 mL/min >=60 Estimated GFR by using Modified MDRD formula.Chronic kidney disease is defined as either kidney damageor GFR <60 mL/min/1.73 m2 for >3 months. CREATININE (test code = CREAT) 1.40 mg/dL 0.55-1.02 H Note change in reference range due to change in reagent. BUN/CREATININE RATIO (test code = BUN/CREA) 32.9 10-20 H CALCIUM (test code = CA) 8.5 mg/dL 8.5-10.1 N BASIC METABOLIC [id number] 05:20:00* Test Item Value Reference Range Interpretation Comments SODIUM (test code = NA) 138 mmol/L 136-145 N POTASSIUM (test code = K) 3.2 mmol/L 3.5-5.1 L CHLORIDE (test code = CL) 102.0 mmol/L 98-107 N CARBON DIOXIDE (test code = CO2) mmol/L 21-32 ANION GAP (test code = GAP) 10-20 GLUCOSE (test code = GLU) mg/dL 74-106 BLOOD UREA NITROGEN (test code = BUN) mg/dL 7-18 GLOMERULAR FILTRATION RATE (test code = GFR) mL/min >=60 CREATININE (test code = CREAT) mg/dL 0.55-1.02 BUN/CREATININE RATIO (test code = BUN/CREA) 10-20 CALCIUM (test code = CA) mg/dL 8.5-10.1 CBC W/MANUAL [id number] 04:57:00* Test Item Value Reference Range Interpretation Comments WHITE BLOOD CELL (test code = WBC) 28.5 K/mm3 4.5-12.5 H RED BLOOD CELL (test code = RBC) 3.47 mill/mm3 3.7-5.2 L HEMOGLOBIN (test code = HGB) 10.9 gram/dL 11.5-15.5 L HEMATOCRIT (test code = HCT) 32.4 % 36.0-46.0 L MEAN CELL VOLUME (test code = MCV) 93.4 fL 80-98 N MEAN CELL HGB (test code = MCH) 31.4 picogram 27.0-33.0 N MEAN CELL HGB CONCETRATION (test code = MCHC) 33.6 gram/dL 33.0-36. 0 N RED CELL DISTRIBUTION WIDTH (test code = RDW) 12.4 % 11.6-16. 2 N RED CELL DISTRIBUTION WIDTH SD (test code = RDW-SD) 42.3 fL 37 .0-51.0 N PLATELET COUNT (test code = PLT) 170 K/mm3 150-450 N MEAN PLATELET VOLUME (test code = MPV) 13.6 fL 6.7-11.0 H IMMATURE GRANULOCYTE % (test code = IG%) 1.2 % 0.0-5.0 N NUCLEATED RBC % (test code = NRBC%) 0.0 % 0-0 N NEUTROPHIL # (test code = NT#) 23.99 K/mm3 1.8-7.7 H IMMATURE GRANULOCYTE # (test code = IG#) 0.35 x10 3/uL 0-0.03 H LYMPHOCYTE # (test code = LY#) 2.45 K/mm3 1.0-5.0 N MONOCYTE # (test code = MO#) 1.62 K/mm3 0-0.8 H EOSINOPHIL # (test code = EO#) 0.01 K/mm3 0.0-0.5 N BASOPHIL # (test code = BA#) 0.10 K/mm3 0.0-0.2 N NUCLEATED RBC # (test code = NRBC#) 0.00 K/mm3 0.0-0.1 N MANUAL DIFF REQUIRED (test code = MDIFF) YES STAIN ACCEPTABILITY (test code = STN ACCEPTABLE) TOTAL CELLS COUNTED (test code = TCC) #CELLS SEGMENTED NEUTROPHILS (test code = SEG) % 39-69 LYMPHOCYTE (test code = LYMPH) % 25-55 MONOCYTE (test code = MON) % 0-10 EOSINOPHIL (test code = EOS) % 0.0-5.0 CABOT RINGS (test code = CAB) MORPHOLOGY COMMENT (test code = MOC) PLATELET ESTIMATE (test code = PLTEST) PLATELET MORPHOLOGY (test code = PLTMORPH) CBC W/MANUAL [id number] 04:57:00* Test Item Value Reference Range Interpretation Comments WHITE BLOOD CELL (test code = WBC) 28.5 K/mm3 4.5-12.5 H RED BLOOD CELL (test code = RBC) 3.47 mill/mm3 3.7-5.2 L HEMOGLOBIN (test code = HGB) 10.9 gram/dL 11.5-15.5 L HEMATOCRIT (test code = HCT) 32.4 % 36.0-46.0 L MEAN CELL VOLUME (test code = MCV) 93.4 fL 80-98 N MEAN CELL HGB (test code = MCH) 31.4 picogram 27.0-33.0 N MEAN CELL HGB CONCETRATION (test code = MCHC) 33.6 gram/dL 33.0-36. 0 N RED CELL DISTRIBUTION WIDTH (test code = RDW) 12.4 % 11.6-16. 2 N RED CELL DISTRIBUTION WIDTH SD (test code = RDW-SD) 42.3 fL 37 .0-51.0 N PLATELET COUNT (test code = PLT) 170 K/mm3 150-450 N MEAN PLATELET VOLUME (test code = MPV) 13.6 fL 6.7-11.0 H IMMATURE GRANULOCYTE % (test code = IG%) 1.2 % 0.0-5.0 N NUCLEATED RBC % (test code = NRBC%) 0.0 % 0-0 N NEUTROPHIL # (test code = NT#) 23.99 K/mm3 1.8-7.7 H IMMATURE GRANULOCYTE # (test code = IG#) 0.35 x10 3/uL 0-0.03 H LYMPHOCYTE # (test code = LY#) 2.45 K/mm3 1.0-5.0 N MONOCYTE # (test code = MO#) 1.62 K/mm3 0-0.8 H EOSINOPHIL # (test code = EO#) 0.01 K/mm3 0.0-0.5 N BASOPHIL # (test code = BA#) 0.10 K/mm3 0.0-0.2 N NUCLEATED RBC # (test code = NRBC#) 0.00 K/mm3 0.0-0.1 N MANUAL DIFF REQUIRED (test code = MDIFF) YES STAIN ACCEPTABILITY (test code = STN ACCEPTABLE) TOTAL CELLS COUNTED (test code = TCC) #CELLS SEGMENTED NEUTROPHILS (test code = SEG) % 39-69 LYMPHOCYTE (test code = LYMPH) % 25-55 MONOCYTE (test code = MON) % 0-10 EOSINOPHIL (test code = EOS) % 0.0-5.0 CABOT RINGS (test code = CAB) MORPHOLOGY COMMENT (test code = MOC) PLATELET ESTIMATE (test code = PLTEST) PLATELET MORPHOLOGY (test code = PLTMORPH) CBC W/MANUAL [id number] 04:57:00* Test Item Value Reference Range Interpretation Comments WHITE BLOOD CELL (test code = WBC) 28.5 K/mm3 4.5-12.5 H RED BLOOD CELL (test code = RBC) 3.47 mill/mm3 3.7-5.2 L HEMOGLOBIN (test code = HGB) 10.9 gram/dL 11.5-15.5 L HEMATOCRIT (test code = HCT) 32.4 % 36.0-46.0 L MEAN CELL VOLUME (test code = MCV) 93.4 fL 80-98 N MEAN CELL HGB (test code = MCH) 31.4 picogram 27.0-33.0 N MEAN CELL HGB CONCETRATION (test code = MCHC) 33.6 gram/dL 33.0-36. 0 N RED CELL DISTRIBUTION WIDTH (test code = RDW) 12.4 % 11.6-16. 2 N RED CELL DISTRIBUTION WIDTH SD (test code = RDW-SD) 42.3 fL 37 .0-51.0 N PLATELET COUNT (test code = PLT) 170 K/mm3 150-450 N MEAN PLATELET VOLUME (test code = MPV) 13.6 fL 6.7-11.0 H IMMATURE GRANULOCYTE % (test code = IG%) 1.2 % 0.0-5.0 N NUCLEATED RBC % (test code = NRBC%) 0.0 % 0-0 N NEUTROPHIL # (test code = NT#) 23.99 K/mm3 1.8-7.7 H IMMATURE GRANULOCYTE # (test code = IG#) 0.35 x10 3/uL 0-0.03 H LYMPHOCYTE # (test code = LY#) 2.45 K/mm3 1.0-5.0 N MONOCYTE # (test code = MO#) 1.62 K/mm3 0-0.8 H EOSINOPHIL # (test code = EO#) 0.01 K/mm3 0.0-0.5 N BASOPHIL # (test code = BA#) 0.10 K/mm3 0.0-0.2 N NUCLEATED RBC # (test code = NRBC#) 0.00 K/mm3 0.0-0.1 N MANUAL DIFF REQUIRED (test code = MDIFF) YES STAIN ACCEPTABILITY (test code = STN ACCEPTABLE) TOTAL CELLS COUNTED (test code = TCC) #CELLS SEGMENTED NEUTROPHILS (test code = SEG) % 39-69 LYMPHOCYTE (test code = LYMPH) % 25-55 MONOCYTE (test code = MON) % 0-10 EOSINOPHIL (test code = EOS) % 0.0-5.0 MORPHOLOGY COMMENT (test code = MOC) PLATELET ESTIMATE (test code = PLTEST) PLATELET MORPHOLOGY (test code = PLTMORPH) CBC W/MANUAL [id number] 04:57:00* Test Item Value Reference Range Interpretation Comments WHITE BLOOD CELL (test code = WBC) 28.5 K/mm3 4.5-12.5 H RED BLOOD CELL (test code = RBC) 3.47 mill/mm3 3.7-5.2 L HEMOGLOBIN (test code = HGB) 10.9 gram/dL 11.5-15.5 L HEMATOCRIT (test code = HCT) 32.4 % 36.0-46.0 L MEAN CELL VOLUME (test code = MCV) 93.4 fL 80-98 N MEAN CELL HGB (test code = MCH) 31.4 picogram 27.0-33.0 N MEAN CELL HGB CONCETRATION (test code = MCHC) 33.6 gram/dL 33.0-36. 0 N RED CELL DISTRIBUTION WIDTH (test code = RDW) 12.4 % 11.6-16. 2 N RED CELL DISTRIBUTION WIDTH SD (test code = RDW-SD) 42.3 fL 37 .0-51.0 N PLATELET COUNT (test code = PLT) 170 K/mm3 150-450 N MEAN PLATELET VOLUME (test code = MPV) 13.6 fL 6.7-11.0 H IMMATURE GRANULOCYTE % (test code = IG%) 1.2 % 0.0-5.0 N NUCLEATED RBC % (test code = NRBC%) 0.0 % 0-0 N NEUTROPHIL # (test code = NT#) 23.99 K/mm3 1.8-7.7 H IMMATURE GRANULOCYTE # (test code = IG#) 0.35 x10 3/uL 0-0.03 H LYMPHOCYTE # (test code = LY#) 2.45 K/mm3 1.0-5.0 N MONOCYTE # (test code = MO#) 1.62 K/mm3 0-0.8 H EOSINOPHIL # (test code = EO#) 0.01 K/mm3 0.0-0.5 N BASOPHIL # (test code = BA#) 0.10 K/mm3 0.0-0.2 N NUCLEATED RBC # (test code = NRBC#) 0.00 K/mm3 0.0-0.1 N MANUAL DIFF REQUIRED (test code = MDIFF) YES STAIN ACCEPTABILITY (test code = STN ACCEPTABLE) TOTAL CELLS COUNTED (test code = TCC) #CELLS SEGMENTED NEUTROPHILS (test code = SEG) % 39-69 LYMPHOCYTE (test code = LYMPH) % 25-55 MONOCYTE (test code = MON) % 0-10 MORPHOLOGY COMMENT (test code = MOC) PLATELET ESTIMATE (test code = PLTEST) PLATELET MORPHOLOGY (test code = PLTMORPH) CBC W/MANUAL [id number] 04:57:00* Test Item Value Reference Range Interpretation Comments WHITE BLOOD CELL (test code = WBC) 28.5 K/mm3 4.5-12.5 H RED BLOOD CELL (test code = RBC) 3.47 mill/mm3 3.7-5.2 L HEMOGLOBIN (test code = HGB) 10.9 gram/dL 11.5-15.5 L HEMATOCRIT (test code = HCT) 32.4 % 36.0-46.0 L MEAN CELL VOLUME (test code = MCV) 93.4 fL 80-98 N MEAN CELL HGB (test code = MCH) 31.4 picogram 27.0-33.0 N MEAN CELL HGB CONCETRATION (test code = MCHC) 33.6 gram/dL 33.0-36. 0 N RED CELL DISTRIBUTION WIDTH (test code = RDW) 12.4 % 11.6-16. 2 N RED CELL DISTRIBUTION WIDTH SD (test code = RDW-SD) 42.3 fL 37 .0-51.0 N PLATELET COUNT (test code = PLT) 170 K/mm3 150-450 N MEAN PLATELET VOLUME (test code = MPV) 13.6 fL 6.7-11.0 H IMMATURE GRANULOCYTE % (test code = IG%) 1.2 % 0.0-5.0 N NUCLEATED RBC % (test code = NRBC%) 0.0 % 0-0 N NEUTROPHIL # (test code = NT#) 23.99 K/mm3 1.8-7.7 H IMMATURE GRANULOCYTE # (test code = IG#) 0.35 x10 3/uL 0-0.03 H LYMPHOCYTE # (test code = LY#) 2.45 K/mm3 1.0-5.0 N MONOCYTE # (test code = MO#) 1.62 K/mm3 0-0.8 H EOSINOPHIL # (test code = EO#) 0.01 K/mm3 0.0-0.5 N BASOPHIL # (test code = BA#) 0.10 K/mm3 0.0-0.2 N NUCLEATED RBC # (test code = NRBC#) 0.00 K/mm3 0.0-0.1 N MANUAL DIFF REQUIRED (test code = MDIFF) YES STAIN ACCEPTABILITY (test code = STN ACCEPTABLE) TOTAL CELLS COUNTED (test code = TCC) #CELLS SEGMENTED NEUTROPHILS (test code = SEG) % 39-69 LYMPHOCYTE (test code = LYMPH) % 25-55 MONOCYTE (test code = MON) % 0-10 EOSINOPHIL (test code = EOS) % 0.0-5.0 CABOT RINGS (test code = CAB) MORPHOLOGY COMMENT (test code = MOC) PLATELET ESTIMATE (test code = PLTEST) PLATELET MORPHOLOGY (test code = PLTMORPH) [id number] 20:27:00* Test Item Value Reference Range Interpretation Comments GLUBED (test code = GLUBED) 337 mg/dL 74-106 H Performed by certified carousel operator at [facility] [id number] 15:40:00* Test Item Value Reference Range Interpretation Comments GLUBED (test code = GLUBED) 265 mg/dL 74-106 H Performed by certified carousel operator at [facility] PROCALCITONIN (PCT)2019-04-25 14:28:00* Test Item Value Reference Range Interpretation Comments PROCALCITONIN (PCT) (test code = PROCAL) 14.53 ng/ml Concentration Interpretation (ng/mL) <0.51 Sepsis is not likely. Local bacterial infection is possible. (LOW RISK for progression to Sepsis) 0.51 - 2.00 Sepsis is possible, but other conditions are known to elevate PCT as well. (MODERATE RISK for progression to Sepsis) > 2.00 Sepsis is likely, unless other causes are known. (HIGH RISK for progression to Severe Sepsis or Septic Shock) 10.00 High likelihood of Severe Sepsis or Septic or higher Shock. *Increased PCT levels may not always be related to systemic bacterial infection.*Low PCT levels do not automatically exclude the presence of bacterial infection.*All results should be interpreted taking into account the patients history. [id number] 11:59:00* Test Item Value Reference Range Interpretation Comments GLUBED (test code = GLUBED) 180 mg/dL 74-106 H Performed by certified carousel operator at [facility] [id number] 11:59:00* Test Item Value Reference Range Interpretation Comments GLUBED (test code = GLUBED) 186 mg/dL 74-106 H Performed by certified carousel operator at [facility] [id number] 11:59:00* Test Item Value Reference Range Interpretation Comments GLUBED (test code = GLUBED) 122 mg/dL 74-106 H Performed by certified carousel operator at [facility] - CT CHEST W/O [id number] 10:22:00 Name: DAYANA RICHARDSON [facility] : 1960 Age/S: 59 / F [address] [facility] Unit #: [id number] Loc: ANTONIO [place] [address] Phys: Justo Kaplan Acct: [id number] Dis Date: Status: ADM IN PHONE #: [phone] Exam Date: 04/25/2019920 FAX #: [phone] Reason: respiratory failure, COPD exacerbation, sepsis EXAMS: CPT CODE: [id number] CT CHEST W/O CONTRAST 36553 REASON FOR EXAM: respiratory failure, COPD exacerbation, sepsis EXAM ORDER DATE: 04/25/2019 7:54 AM Ordering M.D.: SHOAN Dunham PROCEDURE: - CT CHEST W/O CONTRAST Comparison:Noncontrast CT chest December 03, [address] images of the chest were obtained without the use of IV contrast. Reconstructed sagittal and coronal images of the chest were provided for interpretation. Dose reduction techniques were applied. FINDINGS: The absence of IV contrast limits the sensitivity of this exam for detecting soft tissue pathology and differen tiating atelectasis from consolidations. Visualized neck: Gr ossly normal Airways, Lungs and Pleura: There are nodular and grou ndglass opacities throughout the left upper and left lower lobe. Additiona l nodular opacities are seen in the middle lobe. There are a few groundgla ss and nodular opacities in the right lung base. There is mucus in the trachea and in the left and right bronchus. No pleural effusion is seen . Heart, great vessels, pulmonary vessels, mediastinum: Three-vess el coronary atherosclerosis. Atherosclerotic disease is also present in the aortic arch. The thoracic aorta and pulmonary trunk are normal in caliber. No cardiomegaly or pericardial effusion. Lymph nodes: Hil ar lymph nodes are suboptimally evaluated due to the absence of IV contras t. There are a few mediastinal lymph nodes which are normal in caliber. No intramammary or axillary adenopathy. Musculoskeletal/chest wall: Vertebral body height loss is seen throughout the spine. Degenerative shultz ges are also seen throughout the spine. Visualized upper abd omen: Postsurgical changes of the stomach are redemonstrated, possibly rep resenting bariatric surgery. Copious PAGE 1 Signed Re port (CONTINUED) Name: DAYANA RICHARDSON [facility] : 1960 Age/S: 59 / F [address] [facility] [id number] Loc: [place] [address] Phys: Justo Kaplan Acct: [id number] Dis Date: Status: ADM IN PHONE #: [phone] Exam Date: 04/25/2019920 FAX #: [phone] Reason: respiratory failure, COPD e xacerbation, sepsis EXAMS: CP T CODE: [id number] CT CHEST W/O CONTRAST 84117 <Continued> amount of stool in the visualized colon. Prior cholecystectomy. IMPRESSION: Nodular and groundglass opacities involving both lungs, significantly worse on the left side, likely represent any multifocal pneumonia. Follow-up CT scan in 8-12 weeks is recommended after treatment to ensure resolution of these nodules and exclude a concurrent neoplastic process. at 1022 Reported and signed by: Klaus Wylie MD CC: Justo Kaplan; Josh Roldan MD; Kevin Veronica MD Technologist:Rafi Durand RT(R),(MR),(CT) CTDI: DLP: Trnscb Date/Time: 04/25/2019 (1020) [email or web address] Orig Print D/T: S: 04/25/2019 (4308) PAGE 2 Signed Report - XR CHEST 1 [id number] 07:44:00 FAX: Anushka Benton NP [phone] [place]: St: [facility] FAX: Josh Roldan MD [phone] FAX: Kevin Bass MD [phone] Name: DAYANA RICHARDSON [facility] : 1960 Age/S: 59/F [address] [facility] Unit #: [id number] Loc: V.S20 [place] [address] Phys: Anushka Benton NP Acct: [id number] Dis Date: Status: ADM IN [facility] #: [phone] Exam Date: 04/25/2019 05 FAX #: [phone] Reason: SOB EXAMS: CPT CODE: [id number] XR CHEST 1 V 43097 CLINICAL HISTO RY: Shortness of breath TECHNIQUE: AP chest x-ray CO MPARISON: Previous day IMPRESSION: Improved ri ght basilar interstitial opacity. No pleural effusion. Normal heart size . Atherosclerotic vascular calcification of the thoracic aorta. at 0761 Reported and signed by: Steph Gray D.O. CC: Anushka Benton NP; Josh Roldan MD; Kevin Veronica MD Technologist: CAMERON GOMEZ JR; Juliann Weiss Trnscrd Date/Time/By: 04/25/2019 (0 246) : By: [email or web address] Orig Print D/T: S: 04/25/2019 (2356) PAGE 1 Signed Report [id number] 07:21:00* Test Item Value Reference Range Interpretation Comments GLUBED (test code = GLUBED) 99 mg/dL 74-106 N Performed by certified carousel operator at [facility] [id number] 06:03:00* Test Item Value Reference Range Interpretation Comments PHOSPHORUS (test code = PHOS) 2.6 mg/dL 2.5-4.9 N [id number] 06:03:00* Test Item Value Reference Range Interpretation Comments MAGNESIUM (test code = MAG) 1.3 mg/dL 1.8-2.4 L [id number] 05:54:00* Test Item Value Reference Range Interpretation Comments GLUBED (test code = GLUBED) 109 mg/dL 74-106 H Performed by certified carousel operator at [facility] [id number] 05:45:00* Test Item Value Reference Range Interpretation Comments PHOSPHORUS (test code = PHOS) mg/dL 2.5-4.9 [id number] 05:45:00* Test Item Value Reference Range Interpretation Comments MAGNESIUM (test code = MAG) 1.3 mg/dL 1.8-2.4 L CBC W/MANUAL [id number] 04:52:00* Test Item Value Reference Range Interpretation Comments WHITE BLOOD CELL (test code = WBC) 40.0 K/mm3 4.5-12.5 H RESULT VERIFIED BY REPEAT ANALYSIS RED BLOOD CELL (test code = RBC) 3.19 mill/mm3 3.7-5.2 L HEMOGLOBIN (test code = HGB) 10.0 gram/dL 11.5-15.5 L HEMATOCRIT (test code = HCT) 29.7 % 36.0-46.0 L MEAN CELL VOLUME (test code = MCV) 93.1 fL 80-98 N MEAN CELL HGB (test code = MCH) 31.3 picogram 27.0-33.0 N MEAN CELL HGB CONCETRATION (test code = MCHC) 33.7 gram/dL 33.0-36. 0 N RED CELL DISTRIBUTION WIDTH (test code = RDW) 11.9 % 11.6-16. 2 N RED CELL DISTRIBUTION WIDTH SD (test code = RDW-SD) 40.3 fL 37 .0-51.0 N PLATELET COUNT (test code = PLT) 171 K/mm3 150-450 N MEAN PLATELET VOLUME (test code = MPV) 13.5 fL 6.7-11.0 H IMMATURE GRANULOCYTE % (test code = IG%) 2.3 % 0.0-5.0 N NUCLEATED RBC % (test code = NRBC%) 0.0 % 0-0 N NEUTROPHIL # (test code = NT#) 36.92 K/mm3 1.8-7.7 H IMMATURE GRANULOCYTE # (test code = IG#) 0.91 x10 3/uL 0-0.03 H LYMPHOCYTE # (test code = LY#) 1.23 K/mm3 1.0-5.0 N MONOCYTE # (test code = MO#) 0.74 K/mm3 0-0.8 N EOSINOPHIL # (test code = EO#) 0.00 K/mm3 0.0-0.5 N BASOPHIL # (test code = BA#) 0.18 K/mm3 0.0-0.2 N NUCLEATED RBC # (test code = NRBC#) 0.00 K/mm3 0.0-0.1 N MANUAL DIFF REQUIRED (test code = MDIFF) YES STAIN ACCEPTABILITY (test code = STN ACCEPTABLE) STAIN ACCEPTABLE TOTAL CELLS COUNTED (test code = TCC) 115 #CELLS SEGMENTED NEUTROPHILS (test code = SEG) 93.9 % 39-69 H BAND NEUTROPHIL (test code = BAND) 1.7 % 0-10 N LYMPHOCYTE (test code = LYMPH) 4.4 % 25-55 L REACTIVE LYMPH (test code = RELYMPH) 0 % MONOCYTE (test code = MON) 0 % 0-10 N EOSINOPHIL (test code = EOS) 0 % 0.0-5.0 N BASOPHIL (test code = BASO) 0 % 0-1.0 N METAMYELOCYTE (test code = META) 0 % 0-0 N MYELOCYTE (test code = MYELO) 0 % 0.0-0.0 N PROMYELOCYTE (test code = PROM) 0 % 0-0 N PLATELET ESTIMATE (test code = PLTEST) ADEQUATE PLATELET MORPHOLOGY (test code = PLTMORPH) NORMAL IMMATURE FORMS (test code = IMMAT) 0 % 0-0 N [id number] 04:46:00* Test Item Value Reference Range Interpretation Comments GLUBED (test code = GLUBED) 135 mg/dL 74-106 H Performed by certified carousel operator at [facility] BASIC METABOLIC [id number] 04:13:00* Test Item Value Reference Range Interpretation Comments SODIUM (test code = NA) 141 mmol/L 136-145 N POTASSIUM (test code = K) 3.3 mmol/L 3.5-5.1 L CHLORIDE (test code = CL) 106.0 mmol/L 98-107 N CARBON DIOXIDE (test code = CO2) 26.0 mmol/L 21-32 N ANION GAP (test code = GAP) 12.3 10-20 N GLUCOSE (test code = GLU) 165 mg/dL 74-106 H BLOOD UREA NITROGEN (test code = BUN) 29 mg/dL 7-18 H RESULT VERIFIED BY REPEAT ANALYSIS GLOMERULAR FILTRATION RATE (test code = GFR) 46 mL/min >=60 Estimated GFR by using Modified MDRD formula.Chronic kidney disease is defined as either kidney damageor GFR <60 mL/min/1.73 m2 for >3 months. CREATININE (test code = CREAT) 1.20 mg/dL 0.55-1.02 H Note change in reference range due to change in reagent. BUN/CREATININE RATIO (test code = BUN/CREA) 24.2 10-20 H CALCIUM (test code = CA) 8.4 mg/dL 8.5-10.1 L CBC W/MANUAL [id number] 04:06:00* Test Item Value Reference Range Interpretation Comments WHITE BLOOD CELL (test code = WBC) 40.0 K/mm3 4.5-12.5 H RESULT VERIFIED BY REPEAT ANALYSIS RED BLOOD CELL (test code = RBC) 3.19 mill/mm3 3.7-5.2 L HEMOGLOBIN (test code = HGB) 10.0 gram/dL 11.5-15.5 L HEMATOCRIT (test code = HCT) 29.7 % 36.0-46.0 L MEAN CELL VOLUME (test code = MCV) 93.1 fL 80-98 N MEAN CELL HGB (test code = MCH) 31.3 picogram 27.0-33.0 N MEAN CELL HGB CONCETRATION (test code = MCHC) 33.7 gram/dL 33.0-36. 0 N RED CELL DISTRIBUTION WIDTH (test code = RDW) 11.9 % 11.6-16. 2 N RED CELL DISTRIBUTION WIDTH SD (test code = RDW-SD) 40.3 fL 37 .0-51.0 N PLATELET COUNT (test code = PLT) 171 K/mm3 150-450 N MEAN PLATELET VOLUME (test code = MPV) 13.5 fL 6.7-11.0 H IMMATURE GRANULOCYTE % (test code = IG%) 2.3 % 0.0-5.0 N NUCLEATED RBC % (test code = NRBC%) 0.0 % 0-0 N NEUTROPHIL # (test code = NT#) 36.92 K/mm3 1.8-7.7 H IMMATURE GRANULOCYTE # (test code = IG#) 0.91 x10 3/uL 0-0.03 H LYMPHOCYTE # (test code = LY#) 1.23 K/mm3 1.0-5.0 N MONOCYTE # (test code = MO#) 0.74 K/mm3 0-0.8 N EOSINOPHIL # (test code = EO#) 0.00 K/mm3 0.0-0.5 N BASOPHIL # (test code = BA#) 0.18 K/mm3 0.0-0.2 N NUCLEATED RBC # (test code = NRBC#) 0.00 K/mm3 0.0-0.1 N MANUAL DIFF REQUIRED (test code = MDIFF) YES STAIN ACCEPTABILITY (test code = STN ACCEPTABLE) TOTAL CELLS COUNTED (test code = TCC) #CELLS SEGMENTED NEUTROPHILS (test code = SEG) % 39-69 LYMPHOCYTE (test code = LYMPH) % 25-55 MONOCYTE (test code = MON) % 0-10 EOSINOPHIL (test code = EOS) % 0.0-5.0 CABOT RINGS (test code = CAB) MORPHOLOGY COMMENT (test code = MOC) PLATELET ESTIMATE (test code = PLTEST) PLATELET MORPHOLOGY (test code = PLTMORPH) CBC W/MANUAL [id number] 04:06:00* Test Item Value Reference Range Interpretation Comments WHITE BLOOD CELL (test code = WBC) 40.0 K/mm3 4.5-12.5 H RESULT VERIFIED BY REPEAT ANALYSIS RED BLOOD CELL (test code = RBC) 3.19 mill/mm3 3.7-5.2 L HEMOGLOBIN (test code = HGB) 10.0 gram/dL 11.5-15.5 L HEMATOCRIT (test code = HCT) 29.7 % 36.0-46.0 L MEAN CELL VOLUME (test code = MCV) 93.1 fL 80-98 N MEAN CELL HGB (test code = MCH) 31.3 picogram 27.0-33.0 N MEAN CELL HGB CONCETRATION (test code = MCHC) 33.7 gram/dL 33.0-36. 0 N RED CELL DISTRIBUTION WIDTH (test code = RDW) 11.9 % 11.6-16. 2 N RED CELL DISTRIBUTION WIDTH SD (test code = RDW-SD) 40.3 fL 37 .0-51.0 N PLATELET COUNT (test code = PLT) 171 K/mm3 150-450 N MEAN PLATELET VOLUME (test code = MPV) 13.5 fL 6.7-11.0 H IMMATURE GRANULOCYTE % (test code = IG%) 2.3 % 0.0-5.0 N NUCLEATED RBC % (test code = NRBC%) 0.0 % 0-0 N NEUTROPHIL # (test code = NT#) 36.92 K/mm3 1.8-7.7 H IMMATURE GRANULOCYTE # (test code = IG#) 0.91 x10 3/uL 0-0.03 H LYMPHOCYTE # (test code = LY#) 1.23 K/mm3 1.0-5.0 N MONOCYTE # (test code = MO#) 0.74 K/mm3 0-0.8 N EOSINOPHIL # (test code = EO#) 0.00 K/mm3 0.0-0.5 N BASOPHIL # (test code = BA#) 0.18 K/mm3 0.0-0.2 N NUCLEATED RBC # (test code = NRBC#) 0.00 K/mm3 0.0-0.1 N MANUAL DIFF REQUIRED (test code = MDIFF) YES STAIN ACCEPTABILITY (test code = STN ACCEPTABLE) TOTAL CELLS COUNTED (test code = TCC) #CELLS SEGMENTED NEUTROPHILS (test code = SEG) % 39-69 LYMPHOCYTE (test code = LYMPH) % 25-55 MONOCYTE (test code = MON) % 0-10 EOSINOPHIL (test code = EOS) % 0.0-5.0 CABOT RINGS (test code = CAB) MORPHOLOGY COMMENT (test code = MOC) PLATELET ESTIMATE (test code = PLTEST) PLATELET MORPHOLOGY (test code = PLTMORPH) CBC W/MANUAL [id number] 04:06:00* Test Item Value Reference Range Interpretation Comments WHITE BLOOD CELL (test code = WBC) 40.0 K/mm3 4.5-12.5 H RESULT VERIFIED BY REPEAT ANALYSIS RED BLOOD CELL (test code = RBC) 3.19 mill/mm3 3.7-5.2 L HEMOGLOBIN (test code = HGB) 10.0 gram/dL 11.5-15.5 L HEMATOCRIT (test code = HCT) 29.7 % 36.0-46.0 L MEAN CELL VOLUME (test code = MCV) 93.1 fL 80-98 N MEAN CELL HGB (test code = MCH) 31.3 picogram 27.0-33.0 N MEAN CELL HGB CONCETRATION (test code = MCHC) 33.7 gram/dL 33.0-36. 0 N RED CELL DISTRIBUTION WIDTH (test code = RDW) 11.9 % 11.6-16. 2 N RED CELL DISTRIBUTION WIDTH SD (test code = RDW-SD) 40.3 fL 37 .0-51.0 N PLATELET COUNT (test code = PLT) 171 K/mm3 150-450 N MEAN PLATELET VOLUME (test code = MPV) 13.5 fL 6.7-11.0 H IMMATURE GRANULOCYTE % (test code = IG%) 2.3 % 0.0-5.0 N NUCLEATED RBC % (test code = NRBC%) 0.0 % 0-0 N NEUTROPHIL # (test code = NT#) 36.92 K/mm3 1.8-7.7 H IMMATURE GRANULOCYTE # (test code = IG#) 0.91 x10 3/uL 0-0.03 H LYMPHOCYTE # (test code = LY#) 1.23 K/mm3 1.0-5.0 N MONOCYTE # (test code = MO#) 0.74 K/mm3 0-0.8 N EOSINOPHIL # (test code = EO#) 0.00 K/mm3 0.0-0.5 N BASOPHIL # (test code = BA#) 0.18 K/mm3 0.0-0.2 N NUCLEATED RBC # (test code = NRBC#) 0.00 K/mm3 0.0-0.1 N MANUAL DIFF REQUIRED (test code = MDIFF) YES STAIN ACCEPTABILITY (test code = STN ACCEPTABLE) TOTAL CELLS COUNTED (test code = TCC) #CELLS SEGMENTED NEUTROPHILS (test code = SEG) % 39-69 LYMPHOCYTE (test code = LYMPH) % 25-55 MONOCYTE (test code = MON) % 0-10 EOSINOPHIL (test code = EOS) % 0.0-5.0 MORPHOLOGY COMMENT (test code = MOC) PLATELET ESTIMATE (test code = PLTEST) PLATELET MORPHOLOGY (test code = PLTMORPH) CBC W/MANUAL [id number] 04:06:00* Test Item Value Reference Range Interpretation Comments WHITE BLOOD CELL (test code = WBC) 40.0 K/mm3 4.5-12.5 H RESULT VERIFIED BY REPEAT ANALYSIS RED BLOOD CELL (test code = RBC) 3.19 mill/mm3 3.7-5.2 L HEMOGLOBIN (test code = HGB) 10.0 gram/dL 11.5-15.5 L HEMATOCRIT (test code = HCT) 29.7 % 36.0-46.0 L MEAN CELL VOLUME (test code = MCV) 93.1 fL 80-98 N MEAN CELL HGB (test code = MCH) 31.3 picogram 27.0-33.0 N MEAN CELL HGB CONCETRATION (test code = MCHC) 33.7 gram/dL 33.0-36. 0 N RED CELL DISTRIBUTION WIDTH (test code = RDW) 11.9 % 11.6-16. 2 N RED CELL DISTRIBUTION WIDTH SD (test code = RDW-SD) 40.3 fL 37 .0-51.0 N PLATELET COUNT (test code = PLT) 171 K/mm3 150-450 N MEAN PLATELET VOLUME (test code = MPV) 13.5 fL 6.7-11.0 H IMMATURE GRANULOCYTE % (test code = IG%) 2.3 % 0.0-5.0 N NUCLEATED RBC % (test code = NRBC%) 0.0 % 0-0 N NEUTROPHIL # (test code = NT#) 36.92 K/mm3 1.8-7.7 H IMMATURE GRANULOCYTE # (test code = IG#) 0.91 x10 3/uL 0-0.03 H LYMPHOCYTE # (test code = LY#) 1.23 K/mm3 1.0-5.0 N MONOCYTE # (test code = MO#) 0.74 K/mm3 0-0.8 N EOSINOPHIL # (test code = EO#) 0.00 K/mm3 0.0-0.5 N BASOPHIL # (test code = BA#) 0.18 K/mm3 0.0-0.2 N NUCLEATED RBC # (test code = NRBC#) 0.00 K/mm3 0.0-0.1 N MANUAL DIFF REQUIRED (test code = MDIFF) YES STAIN ACCEPTABILITY (test code = STN ACCEPTABLE) TOTAL CELLS COUNTED (test code = TCC) #CELLS SEGMENTED NEUTROPHILS (test code = SEG) % 39-69 LYMPHOCYTE (test code = LYMPH) % 25-55 MONOCYTE (test code = MON) % 0-10 MORPHOLOGY COMMENT (test code = MOC) PLATELET ESTIMATE (test code = PLTEST) PLATELET MORPHOLOGY (test code = PLTMORPH) CBC W/MANUAL [id number] 04:06:00* Test Item Value Reference Range Interpretation Comments WHITE BLOOD CELL (test code = WBC) 40.0 K/mm3 4.5-12.5 H RESULT VERIFIED BY REPEAT ANALYSIS RED BLOOD CELL (test code = RBC) 3.19 mill/mm3 3.7-5.2 L HEMOGLOBIN (test code = HGB) 10.0 gram/dL 11.5-15.5 L HEMATOCRIT (test code = HCT) 29.7 % 36.0-46.0 L MEAN CELL VOLUME (test code = MCV) 93.1 fL 80-98 N MEAN CELL HGB (test code = MCH) 31.3 picogram 27.0-33.0 N MEAN CELL HGB CONCETRATION (test code = MCHC) 33.7 gram/dL 33.0-36. 0 N RED CELL DISTRIBUTION WIDTH (test code = RDW) 11.9 % 11.6-16. 2 N RED CELL DISTRIBUTION WIDTH SD (test code = RDW-SD) 40.3 fL 37 .0-51.0 N PLATELET COUNT (test code = PLT) 171 K/mm3 150-450 N MEAN PLATELET VOLUME (test code = MPV) 13.5 fL 6.7-11.0 H IMMATURE GRANULOCYTE % (test code = IG%) 2.3 % 0.0-5.0 N NUCLEATED RBC % (test code = NRBC%) 0.0 % 0-0 N NEUTROPHIL # (test code = NT#) 36.92 K/mm3 1.8-7.7 H IMMATURE GRANULOCYTE # (test code = IG#) 0.91 x10 3/uL 0-0.03 H LYMPHOCYTE # (test code = LY#) 1.23 K/mm3 1.0-5.0 N MONOCYTE # (test code = MO#) 0.74 K/mm3 0-0.8 N EOSINOPHIL # (test code = EO#) 0.00 K/mm3 0.0-0.5 N BASOPHIL # (test code = BA#) 0.18 K/mm3 0.0-0.2 N NUCLEATED RBC # (test code = NRBC#) 0.00 K/mm3 0.0-0.1 N MANUAL DIFF REQUIRED (test code = MDIFF) YES STAIN ACCEPTABILITY (test code = STN ACCEPTABLE) TOTAL CELLS COUNTED (test code = TCC) #CELLS SEGMENTED NEUTROPHILS (test code = SEG) % 39-69 LYMPHOCYTE (test code = LYMPH) % 25-55 MONOCYTE (test code = MON) % 0-10 EOSINOPHIL (test code = EOS) % 0.0-5.0 CABOT RINGS (test code = CAB) MORPHOLOGY COMMENT (test code = MOC) PLATELET ESTIMATE (test code = PLTEST) PLATELET MORPHOLOGY (test code = PLTMORPH) [id number] 03:29:00* Test Item Value Reference Range Interpretation Comments GLUBED (test code = GLUBED) 164 mg/dL 74-106 H Performed by certified carousel operator at [facility] [id number] 01:05:00* Test Item Value Reference Range Interpretation Comments GLUBED (test code = GLUBED) 108 mg/dL 74-106 H Performed by certified carousel operator at [facility] [id number] 00:39:00* Test Item Value Reference Range Interpretation Comments GLUBED (test code = GLUBED) 94 mg/dL 74-106 N Performed by certified carousel operator at [facility] [id number] 00:02:00* Test Item Value Reference Range Interpretation Comments GLUBED (test code = GLUBED) 98 mg/dL 74-106 N Performed by certified carousel operator at [facility] [id number] 22:32:00* Test Item Value Reference Range Interpretation Comments GLUBED (test code = GLUBED) 215 mg/dL 74-106 H Performed by certified carousel operator at [facility] [id number] 21:31:00* Test Item Value Reference Range Interpretation Comments GLUBED (test code = GLUBED) 356 mg/dL 74-106 H Performed by certified carousel operator at [facility] [id number] 20:30:00* Test Item Value Reference Range Interpretation Comments GLUBED (test code = GLUBED) 393 mg/dL 74-106 H Performed by certified carousel operator at [facility] CBC W/MANUAL [id number] 19:20:00* Test Item Value Reference Range Interpretation Comments WHITE BLOOD CELL (test code = WBC) 39.2 K/mm3 4.5-12.5 H RED BLOOD CELL (test code = RBC) 3.32 mill/mm3 3.7-5.2 L HEMOGLOBIN (test code = HGB) 10.4 gram/dL 11.5-15.5 L HEMATOCRIT (test code = HCT) 31.5 % 36.0-46.0 L MEAN CELL VOLUME (test code = MCV) 94.9 fL 80-98 N MEAN CELL HGB (test code = MCH) 31.3 picogram 27.0-33.0 N MEAN CELL HGB CONCETRATION (test code = MCHC) 33.0 gram/dL 33.0-36. 0 N RED CELL DISTRIBUTION WIDTH (test code = RDW) 12.1 % 11.6-16. 2 N RED CELL DISTRIBUTION WIDTH SD (test code = RDW-SD) 42.3 fL 37 .0-51.0 N PLATELET COUNT (test code = PLT) 161 K/mm3 150-450 RESULT VERIFIED BY REPEAT ANALYSIS MEAN PLATELET VOLUME (test code = MPV) 13.4 fL 6.7-11.0 H IMMATURE GRANULOCYTE % (test code = IG%) 1.7 % 0.0-5.0 N NUCLEATED RBC % (test code = NRBC%) 0.0 % 0-0 N NEUTROPHIL # (test code = NT#) 37.29 K/mm3 1.8-7.7 H IMMATURE GRANULOCYTE # (test code = IG#) 0.66 x10 3/uL 0-0.03 H LYMPHOCYTE # (test code = LY#) 0.49 K/mm3 1.0-5.0 L MONOCYTE # (test code = MO#) 0.72 K/mm3 0-0.8 N EOSINOPHIL # (test code = EO#) 0.00 K/mm3 0.0-0.5 N BASOPHIL # (test code = BA#) 0.04 K/mm3 0.0-0.2 N NUCLEATED RBC # (test code = NRBC#) 0.00 K/mm3 0.0-0.1 N MANUAL DIFF REQUIRED (test code = MDIFF) YES STAIN ACCEPTABILITY (test code = STN ACCEPTABLE) STAIN ACCEPTABLE TOTAL CELLS COUNTED (test code = TCC) 100 #CELLS SEGMENTED NEUTROPHILS (test code = SEG) 95 % 39-69 H LYMPHOCYTE (test code = LYMPH) 1 % 25-55 L MONOCYTE (test code = MON) 1 % 0-10 N MORPHOLOGY COMMENT (test code = MOC) NORMAL PLATELET ESTIMATE (test code = PLTEST) ADEQUATE PLATELET MORPHOLOGY (test code = PLTMORPH) A COMPREHENSIVE METABOLIC [id number] 18:28:00* Test Item Value Reference Range Interpretation Comments SODIUM (test code = NA) 138 mmol/L 136-145 N POTASSIUM (test code = K) 4.2 mmol/L 3.5-5.1 N CHLORIDE (test code = CL) 103.0 mmol/L 98-107 N CARBON DIOXIDE (test code = CO2) 28.0 mmol/L 21-32 N ANION GAP (test code = GAP) 11.2 10-20 N GLUCOSE (test code = GLU) 425 mg/dL 74-106 H BLOOD UREA NITROGEN (test code = BUN) 21 mg/dL 7-18 H GLOMERULAR FILTRATION RATE (test code = GFR) 39 mL/min >=60 Estimated GFR by using Modified MDRD formula.Chronic kidney disease is defined as either kidney damageor GFR <60 mL/min/1.73 m2 for >3 months. CREATININE (test code = CREAT) 1.40 mg/dL 0.55-1.02 H Note change in reference range due to change in reagent. BUN/CREATININE RATIO (test code = BUN/CREA) 15.0 10-20 N TOTAL PROTEIN (test code = PROT) 6.8 gram/dL 6.4-8.2 N ALBUMIN (test code = ALB) 3.3 g/dL 3.4-5.0 L GLOBULIN (test code = GLOB) 3.5 gram/dL 2.7-4.2 N ALBUMIN/GLOBULIN RATIO (test code = A/G) 0.9 0.75-1.50 N CALCIUM (test code = CA) 8.5 mg/dL 8.5-10.1 N BILIRUBIN TOTAL (test code = BILT) 0.50 mg/dL 0.0-1.0 N SGOT/AST (test code = AST) 13 IUnit/L 15-37 L SGPT/ALT (test code = ALT) 22 IUnit/L 12-78 N ALKALINE PHOSPHATASE TOTAL (test code = ALKP) 93 IUnit/L 45-117 N Note change in reference range due to change in reagent. LIPID PROFILE (CORONARY RISK)[id number] 18:28:00* Test Item Value Reference Range Interpretation Comments TRIGLYCERIDES (test code = TRIG) 40 mg/dL 20-150 N CHOLESTEROL (test code = CHOL) 125 mg/dL 0-200 N CHOLESTEROL/HDL RATIO (test code = CHOLHDL) 1.0 RATIO 0-4.9 N RISK ASSOCIATED WITH CHOL/HDL RATIOS: Risk Male Female1/2 AVERAGE 3.43 3.27AVERAGE 4.97 4.442X AVERAGE 9.55 7.053X AVERAGE 23.39 11.04 REFERENCE VALUE IS RELATED TO RISK LEVELS ASRECOMMENDED BY THE [facility]. HEART, LUNG, AND BLOOD INST. HDL CHOLESTEROL (test code = HDL) 98 mg/dL 40-60 H LIPOPROTEIN LDL (test code = LDL) 19 mg/dL 100-129 L Reference Interval: mg/dL mmol/L Optimal <100 <2.6Near/above optimal 100-129 2.6- 3.3Borderline High 130-159 3.4-4.1High 160-189 4.1-4.9Very High >=190 >=4.9========= This LDL result is a direct measurement.========= [id number] 18:28:00* Test Item Value Reference Range Interpretation Comments PHOSPHORUS (test code = PHOS) 4.2 mg/dL 2.5-4.9 N [id number] 18:28:00* Test Item Value Reference Range Interpretation Comments MAGNESIUM (test code = MAG) 1.3 mg/dL 1.8-2.4 L THYROID STIMULATING [id number] 18:28:00* Test Item Value Reference Range Interpretation Comments THYROID STIMULATING HORMONE (test code = TSH) 0.784 uIU/mL 0.36-3.7 4 N TSH REFERENCE RANGES: EUTHYROID: 0.35 - 4.3 mIU/mL HYPO : > 5.5 mIU/mL HYPER : < 0.35 mIU/mL [id number] 18:28:00* Test Item Value Reference Range Interpretation Comments CKMB (test code = CKMBT) 1.7 ng/mL 0-6.0 N [id number] 18:28:00* Test Item Value Reference Range Interpretation Comments TROPONIN-I (test code = TROPI) <0.015 ng/mL 0-0.045 N LACTIC [id number] 18:13:00* Test Item Value Reference Range Interpretation Comments LACTIC ACID (test code = LACT) 1.9 mmol/L 0.4-1.9 N PROTHROMBIN [id number] 18:03:00* Test Item Value Reference Range Interpretation Comments PROTHROMBIN TIME PATIENT (test code = PTP) 13.7 seconds 9.0-14.0 N INTERNATIONAL NORMAL RATIO (test code = INR) 1.2 0.8-1.2 N The therapeutic range for oral anticoagulant therapy formost indications is an international normalized ratio (INR)of between 2.0 and 3.0. The recommended therapeutic INRrange for various clinical situations is listed below: Clinical Situation INR range Pulmonary e mbolism treatment (2.0-3.0)Venous thrombosis treatmentVenous thrombosis prophylaxis (high risk surgery)Prevention of systemic embolism from: Acute myocardial infarction Valvular heart disease Atrial fibrillation Mechanical prosthetic heart valves (2.5-3.5) IS PATIENT ON ANTICOAGULANTS? NTHROMBOPLASTIN TIME [id number] 18:03:00* Test Item Value Reference Range Interpretation Comments THROMBOPLASTIN TIME PARTIAL (test code = PTT) 31.7 seconds 25.0-36. 5 N IS PATIENT ON ANTICOAGULANTS? NCOMPREHENSIVE METABOLIC [id number] 18:02:00 * Test Item Value Reference Range Interpretation Comments SODIUM (test code = NA) 138 mmol/L 136-145 N POTASSIUM (test code = K) 4.2 mmol/L 3.5-5.1 N CHLORIDE (test code = CL) 103.0 mmol/L 98-107 N CARBON DIOXIDE (test code = CO2) mmol/L 21-32 ANION GAP (test code = GAP) 10-20 GLUCOSE (test code = GLU) mg/dL 74-106 BLOOD UREA NITROGEN (test code = BUN) mg/dL 7-18 GLOMERULAR FILTRATION RATE (test code = GFR) mL/min >=60 CREATININE (test code = CREAT) mg/dL 0.55-1.02 BUN/CREATININE RATIO (test code = BUN/CREA) 10-20 TOTAL PROTEIN (test code = PROT) gram/dL 6.4-8.2 ALBUMIN (test code = ALB) g/dL 3.4-5.0 GLOBULIN (test code = GLOB) gram/dL 2.7-4.2 ALBUMIN/GLOBULIN RATIO (test code = A/G) 0.75-1.50 CALCIUM (test code = CA) mg/dL 8.5-10.1 BILIRUBIN TOTAL (test code = BILT) mg/dL 0.0-1.0 SGOT/AST (test code = AST) IUnit/L 15-37 SGPT/ALT (test code = ALT) IUnit/L 12-78 ALKALINE PHOSPHATASE TOTAL (test code = ALKP) IUnit/L 45-117 LIPID PROFILE (CORONARY RISK)2019-04-24 18:02:00* Test Item Value Reference Range Interpretation Comments TRIGLYCERIDES (test code = TRIG) mg/dL 20-150 CHOLESTEROL (test code = CHOL) mg/dL 0-200 CHOLESTEROL/HDL RATIO (test code = CHOLHDL) RATIO 0-4.9 HDL CHOLESTEROL (test code = HDL) mg/dL 40-60 LIPOPROTEIN LDL (test code = LDL) mg/dL 100-129 [id number] 18:02:00* Test Item Value Reference Range Interpretation Comments PHOSPHORUS (test code = PHOS) mg/dL 2.5-4.9 [id number] 18:02:00* Test Item Value Reference Range Interpretation Comments MAGNESIUM (test code = MAG) mg/dL 1.8-2.4 THYROID STIMULATING [id number] 18:02:00* Test Item Value Reference Range Interpretation Comments THYROID STIMULATING HORMONE (test code = TSH) uIU/mL 0.36-3.7 4 [id number] 18:02:00* Test Item Value Reference Range Interpretation Comments CKMB (test code = CKMBT) ng/mL 0-6.0 [id number] 18:02:00* Test Item Value Reference Range Interpretation Comments TROPONIN-I (test code = TROPI) ng/mL 0-0.045 CBC W/MANUAL [id number] 17:50:00* Test Item Value Reference Range Interpretation Comments WHITE BLOOD CELL (test code = WBC) 39.2 K/mm3 4.5-12.5 H RED BLOOD CELL (test code = RBC) 3.32 mill/mm3 3.7-5.2 L HEMOGLOBIN (test code = HGB) 10.4 gram/dL 11.5-15.5 L HEMATOCRIT (test code = HCT) 31.5 % 36.0-46.0 L MEAN CELL VOLUME (test code = MCV) 94.9 fL 80-98 N MEAN CELL HGB (test code = MCH) 31.3 picogram 27.0-33.0 N MEAN CELL HGB CONCETRATION (test code = MCHC) 33.0 gram/dL 33.0-36. 0 N RED CELL DISTRIBUTION WIDTH (test code = RDW) 12.1 % 11.6-16. 2 N RED CELL DISTRIBUTION WIDTH SD (test code = RDW-SD) 42.3 fL 37 .0-51.0 N PLATELET COUNT (test code = PLT) 161 K/mm3 150-450 RESULT VERIFIED BY REPEAT ANALYSIS MEAN PLATELET VOLUME (test code = MPV) 13.4 fL 6.7-11.0 H IMMATURE GRANULOCYTE % (test code = IG%) 1.7 % 0.0-5.0 N NUCLEATED RBC % (test code = NRBC%) 0.0 % 0-0 N NEUTROPHIL # (test code = NT#) 37.29 K/mm3 1.8-7.7 H IMMATURE GRANULOCYTE # (test code = IG#) 0.66 x10 3/uL 0-0.03 H LYMPHOCYTE # (test code = LY#) 0.49 K/mm3 1.0-5.0 L MONOCYTE # (test code = MO#) 0.72 K/mm3 0-0.8 N EOSINOPHIL # (test code = EO#) 0.00 K/mm3 0.0-0.5 N BASOPHIL # (test code = BA#) 0.04 K/mm3 0.0-0.2 N NUCLEATED RBC # (test code = NRBC#) 0.00 K/mm3 0.0-0.1 N MANUAL DIFF REQUIRED (test code = MDIFF) YES STAIN ACCEPTABILITY (test code = STN ACCEPTABLE) TOTAL CELLS COUNTED (test code = TCC) #CELLS SEGMENTED NEUTROPHILS (test code = SEG) % 39-69 LYMPHOCYTE (test code = LYMPH) % 25-55 MONOCYTE (test code = MON) % 0-10 MORPHOLOGY COMMENT (test code = MOC) PLATELET ESTIMATE (test code = PLTEST) PLATELET MORPHOLOGY (test code = PLTMORPH) CBC W/MANUAL [id number] 17:47:00* Test Item Value Reference Range Interpretation Comments WHITE BLOOD CELL (test code = WBC) 39.2 K/mm3 4.5-12.5 H RED BLOOD CELL (test code = RBC) 3.32 mill/mm3 3.7-5.2 L HEMOGLOBIN (test code = HGB) 10.4 gram/dL 11.5-15.5 L HEMATOCRIT (test code = HCT) 31.5 % 36.0-46.0 L MEAN CELL VOLUME (test code = MCV) 94.9 fL 80-98 N MEAN CELL HGB (test code = MCH) 31.3 picogram 27.0-33.0 N MEAN CELL HGB CONCETRATION (test code = MCHC) 33.0 gram/dL 33.0-36. 0 N RED CELL DISTRIBUTION WIDTH (test code = RDW) 12.1 % 11.6-16. 2 N RED CELL DISTRIBUTION WIDTH SD (test code = RDW-SD) 42.3 fL 37 .0-51.0 N PLATELET COUNT (test code = PLT) 161 K/mm3 150-450 RESULT VERIFIED BY REPEAT ANALYSIS MEAN PLATELET VOLUME (test code = MPV) 13.4 fL 6.7-11.0 H IMMATURE GRANULOCYTE % (test code = IG%) 1.7 % 0.0-5.0 N NUCLEATED RBC % (test code = NRBC%) 0.0 % 0-0 N NEUTROPHIL # (test code = NT#) 37.29 K/mm3 1.8-7.7 H IMMATURE GRANULOCYTE # (test code = IG#) 0.66 x10 3/uL 0-0.03 H LYMPHOCYTE # (test code = LY#) 0.49 K/mm3 1.0-5.0 L MONOCYTE # (test code = MO#) 0.72 K/mm3 0-0.8 N EOSINOPHIL # (test code = EO#) 0.00 K/mm3 0.0-0.5 N BASOPHIL # (test code = BA#) 0.04 K/mm3 0.0-0.2 N NUCLEATED RBC # (test code = NRBC#) 0.00 K/mm3 0.0-0.1 N MANUAL DIFF REQUIRED (test code = MDIFF) YES STAIN ACCEPTABILITY (test code = STN ACCEPTABLE) TOTAL CELLS COUNTED (test code = TCC) #CELLS SEGMENTED NEUTROPHILS (test code = SEG) % 39-69 LYMPHOCYTE (test code = LYMPH) % 25-55 MONOCYTE (test code = MON) % 0-10 EOSINOPHIL (test code = EOS) % 0.0-5.0 CABOT RINGS (test code = CAB) MORPHOLOGY COMMENT (test code = MOC) PLATELET ESTIMATE (test code = PLTEST) PLATELET MORPHOLOGY (test code = PLTMORPH) CBC W/MANUAL [id number] 17:47:00* Test Item Value Reference Range Interpretation Comments WHITE BLOOD CELL (test code = WBC) 39.2 K/mm3 4.5-12.5 H RED BLOOD CELL (test code = RBC) 3.32 mill/mm3 3.7-5.2 L HEMOGLOBIN (test code = HGB) 10.4 gram/dL 11.5-15.5 L HEMATOCRIT (test code = HCT) 31.5 % 36.0-46.0 L MEAN CELL VOLUME (test code = MCV) 94.9 fL 80-98 N MEAN CELL HGB (test code = MCH) 31.3 picogram 27.0-33.0 N MEAN CELL HGB CONCETRATION (test code = MCHC) 33.0 gram/dL 33.0-36. 0 N RED CELL DISTRIBUTION WIDTH (test code = RDW) 12.1 % 11.6-16. 2 N RED CELL DISTRIBUTION WIDTH SD (test code = RDW-SD) 42.3 fL 37 .0-51.0 N PLATELET COUNT (test code = PLT) 161 K/mm3 150-450 RESULT VERIFIED BY REPEAT ANALYSIS MEAN PLATELET VOLUME (test code = MPV) 13.4 fL 6.7-11.0 H IMMATURE GRANULOCYTE % (test code = IG%) 1.7 % 0.0-5.0 N NUCLEATED RBC % (test code = NRBC%) 0.0 % 0-0 N NEUTROPHIL # (test code = NT#) 37.29 K/mm3 1.8-7.7 H IMMATURE GRANULOCYTE # (test code = IG#) 0.66 x10 3/uL 0-0.03 H LYMPHOCYTE # (test code = LY#) 0.49 K/mm3 1.0-5.0 L MONOCYTE # (test code = MO#) 0.72 K/mm3 0-0.8 N EOSINOPHIL # (test code = EO#) 0.00 K/mm3 0.0-0.5 N BASOPHIL # (test code = BA#) 0.04 K/mm3 0.0-0.2 N NUCLEATED RBC # (test code = NRBC#) 0.00 K/mm3 0.0-0.1 N MANUAL DIFF REQUIRED (test code = MDIFF) YES STAIN ACCEPTABILITY (test code = STN ACCEPTABLE) TOTAL CELLS COUNTED (test code = TCC) #CELLS SEGMENTED NEUTROPHILS (test code = SEG) % 39-69 LYMPHOCYTE (test code = LYMPH) % 25-55 MONOCYTE (test code = MON) % 0-10 EOSINOPHIL (test code = EOS) % 0.0-5.0 CABOT RINGS (test code = CAB) MORPHOLOGY COMMENT (test code = MOC) PLATELET ESTIMATE (test code = PLTEST) PLATELET MORPHOLOGY (test code = PLTMORPH) CBC W/MANUAL [id number] 17:47:00* Test Item Value Reference Range Interpretation Comments WHITE BLOOD CELL (test code = WBC) 39.2 K/mm3 4.5-12.5 H RED BLOOD CELL (test code = RBC) 3.32 mill/mm3 3.7-5.2 L HEMOGLOBIN (test code = HGB) 10.4 gram/dL 11.5-15.5 L HEMATOCRIT (test code = HCT) 31.5 % 36.0-46.0 L MEAN CELL VOLUME (test code = MCV) 94.9 fL 80-98 N MEAN CELL HGB (test code = MCH) 31.3 picogram 27.0-33.0 N MEAN CELL HGB CONCETRATION (test code = MCHC) 33.0 gram/dL 33.0-36. 0 N RED CELL DISTRIBUTION WIDTH (test code = RDW) 12.1 % 11.6-16. 2 N RED CELL DISTRIBUTION WIDTH SD (test code = RDW-SD) 42.3 fL 37 .0-51.0 N PLATELET COUNT (test code = PLT) 161 K/mm3 150-450 RESULT VERIFIED BY REPEAT ANALYSIS MEAN PLATELET VOLUME (test code = MPV) 13.4 fL 6.7-11.0 H IMMATURE GRANULOCYTE % (test code = IG%) 1.7 % 0.0-5.0 N NUCLEATED RBC % (test code = NRBC%) 0.0 % 0-0 N NEUTROPHIL # (test code = NT#) 37.29 K/mm3 1.8-7.7 H IMMATURE GRANULOCYTE # (test code = IG#) 0.66 x10 3/uL 0-0.03 H LYMPHOCYTE # (test code = LY#) 0.49 K/mm3 1.0-5.0 L MONOCYTE # (test code = MO#) 0.72 K/mm3 0-0.8 N EOSINOPHIL # (test code = EO#) 0.00 K/mm3 0.0-0.5 N BASOPHIL # (test code = BA#) 0.04 K/mm3 0.0-0.2 N NUCLEATED RBC # (test code = NRBC#) 0.00 K/mm3 0.0-0.1 N MANUAL DIFF REQUIRED (test code = MDIFF) YES STAIN ACCEPTABILITY (test code = STN ACCEPTABLE) TOTAL CELLS COUNTED (test code = TCC) #CELLS SEGMENTED NEUTROPHILS (test code = SEG) % 39-69 LYMPHOCYTE (test code = LYMPH) % 25-55 MONOCYTE (test code = MON) % 0-10 EOSINOPHIL (test code = EOS) % 0.0-5.0 MORPHOLOGY COMMENT (test code = MOC) PLATELET ESTIMATE (test code = PLTEST) PLATELET MORPHOLOGY (test code = PLTMORPH) CBC W/MANUAL [id number] 17:47:00* Test Item Value Reference Range Interpretation Comments WHITE BLOOD CELL (test code = WBC) 39.2 K/mm3 4.5-12.5 H RED BLOOD CELL (test code = RBC) 3.32 mill/mm3 3.7-5.2 L HEMOGLOBIN (test code = HGB) 10.4 gram/dL 11.5-15.5 L HEMATOCRIT (test code = HCT) 31.5 % 36.0-46.0 L MEAN CELL VOLUME (test code = MCV) 94.9 fL 80-98 N MEAN CELL HGB (test code = MCH) 31.3 picogram 27.0-33.0 N MEAN CELL HGB CONCETRATION (test code = MCHC) 33.0 gram/dL 33.0-36. 0 N RED CELL DISTRIBUTION WIDTH (test code = RDW) 12.1 % 11.6-16. 2 N RED CELL DISTRIBUTION WIDTH SD (test code = RDW-SD) 42.3 fL 37 .0-51.0 N PLATELET COUNT (test code = PLT) 161 K/mm3 150-450 RESULT VERIFIED BY REPEAT ANALYSIS MEAN PLATELET VOLUME (test code = MPV) 13.4 fL 6.7-11.0 H IMMATURE GRANULOCYTE % (test code = IG%) 1.7 % 0.0-5.0 N NUCLEATED RBC % (test code = NRBC%) 0.0 % 0-0 N NEUTROPHIL # (test code = NT#) 37.29 K/mm3 1.8-7.7 H IMMATURE GRANULOCYTE # (test code = IG#) 0.66 x10 3/uL 0-0.03 H LYMPHOCYTE # (test code = LY#) 0.49 K/mm3 1.0-5.0 L MONOCYTE # (test code = MO#) 0.72 K/mm3 0-0.8 N EOSINOPHIL # (test code = EO#) 0.00 K/mm3 0.0-0.5 N BASOPHIL # (test code = BA#) 0.04 K/mm3 0.0-0.2 N NUCLEATED RBC # (test code = NRBC#) 0.00 K/mm3 0.0-0.1 N MANUAL DIFF REQUIRED (test code = MDIFF) YES STAIN ACCEPTABILITY (test code = STN ACCEPTABLE) TOTAL CELLS COUNTED (test code = TCC) #CELLS SEGMENTED NEUTROPHILS (test code = SEG) % 39-69 LYMPHOCYTE (test code = LYMPH) % 25-55 MONOCYTE (test code = MON) % 0-10 EOSINOPHIL (test code = EOS) % 0.0-5.0 CABOT RINGS (test code = CAB) MORPHOLOGY COMMENT (test code = MOC) PLATELET ESTIMATE (test code = PLTEST) PLATELET MORPHOLOGY (test code = PLTMORPH) ARTERIAL BLOOD [id number] 17:35:00* Test Item Value Reference Range Interpretation Comments ARTERIAL BLOOD GAS PH (test code = PHA) 7.32 7.35-7.45 L ARTERIAL BLOOD GAS PCO2 (test code = PCO2A) 54.2 mm Hg 35-45 H ARTERIAL BLOOD GAS PO2 (test code = PO2A) < 40.9 mmHg 80-100 LL Results called to and read back by Bouchra 17:34 - 04/24/2019; by DESIRE BICARBONATE TOTAL HCO3 (test code = HCO3) 27.1 mmol/L 23.0-27.0 H BASE EXCESS (test code = TONIA) 0.3 mmol/L -3.0-5.0 N ABG O2 SATURATION (test code = SATA) 72.4 % 90.0-98.0 L ABG TYPE (test code = TYPEA) Arterial FIO2 (test code = FIO2A) 50.0 ABG VENT MODE (test code = MODEA) BiPAP ABG PEEP (test code = PEEPA) 5.0 cmH2O ABG SITE (test code = SITEA) IVC THE PATIENT REFUSED ABG STICK. THIS WAS DRAWN FROM VENOUS [place] MODIFIED ALLENS (test code = MODALL) Unable CHECK PERFORMED HEMATOCRIT (test code = HCT/ABG) 34 % 35-47 L TOTAL HGB (test code = THB) 11.5 gram/dL 11.5-15.5 N HGB O2 SAT (test code = HBOSAT) 72.0 % 94.00-98.00 LL CARBOXYHEMOGLOBIN (test code = HOHGBT) 0.1 %totalHg 0.5-1.5 LL Results called to and read back by Bouchra 17:34 - 04/24/2019; by DESIRE METHEMOGLOBIN (test code = METHGB) 0.4 % 0.0-1.50 N - XR CHEST 1 [id number] 16:52:00 FAX: Josh Roldan MD [phone] [place]: St: ADM FAX: Kevin Bass MD [phone] FAX: Gabriel Garcia MD [phone] Name: DAYANA RICHARDSON [facility] : 1960 Age/S: 59/F [address] [facility] Unit #: [id number] Loc: V.[address] [address] Phys: Gabriel Norwood MD Acct: [id number] Dis Date: Status: ADM IN [facility] #: [phone] Exam Date: 04/24/2019 1450 FAX #: [phone] Reason: heart failure exacerbation EXAMS: CPT CODE: [id number] XR CHEST 1 V 25912 CLINICAL HISTO RY: heart failure exacerbation TECHNIQUE: AP chest x-ray COMPARISON: Same date, 10 hours earlier IMPRESSION: Developing mild right basilar interstitial opacity. No pleural effusion. Normal heart size. Atherosclerotic vascular calcification of the thoracic aorta. Degenerative changes of the spine. Stable sclerosi s of the right 1st rib. Electronically Signed by Steph Gray D.O. on 0 04/24/2019 at 1652 Reported and signed by: Steph Gray D.O. CC: Josh Roldan MD; Kevin Veronica MD; Vivian Norwood MD Technologist: KEVIN BRAVO, RT(R) Trnsc rd Date/Time/By: 04/24/2019 (7741) : By: [email or web address] Orig Print D/T: S: 04/24/2019 (1792) PAGE 1 Signed R eport URINALYSIS [id number] 11:47:00* Test Item Value Reference Range Interpretation Comments UA COLOR (test code = COLU) Light-Yellow YELLOW UA APPEARANCE (test code = APPU) CLEAR CLEAR UA GLUCOSE DIPSTICK (test code = DGLUU) >1000 (4+) mg/dL NEGATIVE UA BILIRUBIN DIPSTICK (test code = BILU) NEGATIVE mg/dL NEGATIVE UA KETONE DIPSTICK (test code = KETU) NEGATIVE mg/dL NEGATIVE UA SPECIFIC GRAVITY (test code = SGU) 1.021 1.001-1.035 UA BLOOD DIPSTICK (test code = ERINN) Negative mg/dL NEGATIVE UA PH DIPSTICK (test code = EVELYN) 5.5 5.0-8.0 UA PROTEIN DIPSTICK (test code = PROU) 10 (Trace) mg/dL NEGATIVE A UA UROBILINIOGEN DIPSTICK (test code = URO) Normal mg/dL NEGATIVE UA NITRITE DIPSTICK (test code = SMITH) NEGATIVE NEGATIVE UA LEUKOCYTE ESTERASE W REFLEX (test code = LEUUR) NEGATIVE Jazmine/uL NEGATIVE UA WBC (test code = WBCU) 0-5 per HPF 0-5 UA RBC (test code = RBCU) 0-2 #/HPF 0-5 UA EPITHELIAL CELLS (test code = EPIU) FEW per HPF FEW UA BACTERIA (test code = BACU) FEW #/HPF NONE A UA HYALINE CAST (test code = HYALU) 6-10 #/LPF 0-5 A UA MUCUS (test code = MUCU) FEW #/LPF FEW Urine Source? Clean [id number] 09:32:00* Test Item Value Reference Range Interpretation Comments GLYCOSYLATED HEMOGLOBIN (HA1C) (test code = GLYHGB) 8.9 % HbA1 4. 8-6.0 H ESTIMATED AVERAGE GLUCOSE (test code = EAG) 209 MG/DL LIPID PROFILE (CORONARY RISK)2019-04-24 09:25:00* Test Item Value Reference Range Interpretation Comments TRIGLYCERIDES (test code = TRIG) 96 mg/dL 20-150 N CHOLESTEROL (test code = CHOL) 161 mg/dL 0-200 N CHOLESTEROL/HDL RATIO (test code = CHOLHDL) 1.0 RATIO 0-4.9 N RISK ASSOCIATED WITH CHOL/HDL RATIOS: Risk Male Female1/2 AVERAGE 3.43 3.27AVERAGE 4.97 4.442X AVERAGE 9.55 7.053X AVERAGE 23.39 11.04 REFERENCE VALUE IS RELATED TO RISK LEVELS ASRECOMMENDED BY THE [facility]. HEART, LUNG, AND BLOOD INST. HDL CHOLESTEROL (test code = HDL) 103 mg/dL 40-60 H LIPOPROTEIN LDL (test code = LDL) 41 mg/dL 100-129 L Reference Interval: mg/dL mmol/L Optimal <100 <2.6Near/above optimal 100-129 2.6- 3.3Borderline High 130-159 3.4-4.1High 160-189 4.1-4.9Very High >=190 >=4.9========= This LDL result is a direct measurement.========= PROTHROMBIN [id number] 08:54:00* Test Item Value Reference Range Interpretation Comments PROTHROMBIN TIME PATIENT (test code = PTP) 11.3 seconds 9.0-14.0 N INTERNATIONAL NORMAL RATIO (test code = INR) 1.0 0.8-1.2 N The therapeutic range for oral anticoagulant therapy formost indications is an international normalized ratio (INR)of between 2.0 and 3.0. The recommended therapeutic INRrange for various clinical situations is listed below: Clinical Situation INR range Pulmonary e mbolism treatment (2.0-3.0)Venous thrombosis treatmentVenous thrombosis prophylaxis (high risk surgery)Prevention of systemic embolism from: Acute myocardial infarction Valvular heart disease Atrial fibrillation Mechanical prosthetic heart valves (2.5-3.5) IS PATIENT ON ANTICOAGULANTS? NTHROMBOPLASTIN TIME [id number] 08:54:00* Test Item Value Reference Range Interpretation Comments THROMBOPLASTIN TIME PARTIAL (test code = PTT) 30.5 seconds 25.0-36. 5 N IS PATIENT ON ANTICOAGULANTS? NPROTHROMBIN [id number] 08:35:00* Test Item Value Reference Range Interpretation Comments PROTHROMBIN TIME PATIENT (test code = PTP) seconds 9.0-14.0 INTERNATIONAL NORMAL RATIO (test code = INR) 0.8-1.2 IS PATIENT ON ANTICOAGULANTS? NTHROMBOPLASTIN TIME [id number] 08:35:00* Test Item Value Reference Range Interpretation Comments THROMBOPLASTIN TIME PARTIAL (test code = PTT) 30.5 seconds 25.0-36. 5 N IS PATIENT ON ANTICOAGULANTS? NCBC W/MANUAL [id number] 08:00:00* Test Item Value Reference Range Interpretation Comments WHITE BLOOD CELL (test code = WBC) 24.7 K/mm3 4.5-12.5 H RED BLOOD CELL (test code = RBC) 3.93 mill/mm3 3.7-5.2 N HEMOGLOBIN (test code = HGB) 12.2 gram/dL 11.5-15.5 N HEMATOCRIT (test code = HCT) 37.6 % 36.0-46.0 N MEAN CELL VOLUME (test code = MCV) 95.9 fL 80-98 N MEAN CELL HGB (test code = MCH) 31.3 picogram 27.0-33.0 N MEAN CELL HGB CONCETRATION (test code = MCHC) 32.6 gram/dL 33.0-36. 0 L RED CELL DISTRIBUTION WIDTH (test code = RDW) 12.1 % 11.6-16. 2 N RED CELL DISTRIBUTION WIDTH SD (test code = RDW-SD) 42.7 fL 37 .0-51.0 N PLATELET COUNT (test code = PLT) 218 K/mm3 150-450 N MEAN PLATELET VOLUME (test code = MPV) 13.3 fL 6.7-11.0 H IMMATURE GRANULOCYTE % (test code = IG%) 0.9 % 0.0-5.0 N NUCLEATED RBC % (test code = NRBC%) 0.0 % 0-0 N NEUTROPHIL # (test code = NT#) 21.67 K/mm3 1.8-7.7 H IMMATURE GRANULOCYTE # (test code = IG#) 0.21 x10 3/uL 0-0.03 H LYMPHOCYTE # (test code = LY#) 2.18 K/mm3 1.0-5.0 N MONOCYTE # (test code = MO#) 0.49 K/mm3 0-0.8 N EOSINOPHIL # (test code = EO#) 0.00 K/mm3 0.0-0.5 N BASOPHIL # (test code = BA#) 0.12 K/mm3 0.0-0.2 N NUCLEATED RBC # (test code = NRBC#) 0.00 K/mm3 0.0-0.1 N MANUAL DIFF REQUIRED (test code = MDIFF) YES STAIN ACCEPTABILITY (test code = STN ACCEPTABLE) STAIN ACCEPTABLE TOTAL CELLS COUNTED (test code = TCC) 114 #CELLS SEGMENTED NEUTROPHILS (test code = SEG) 92.1 % 39-69 H BAND NEUTROPHIL (test code = BAND) 0 % 0-10 N LYMPHOCYTE (test code = LYMPH) 7.0 % 25-55 L REACTIVE LYMPH (test code = RELYMPH) 0 % MONOCYTE (test code = MON) 0 % 0-10 N EOSINOPHIL (test code = EOS) 0 % 0.0-5.0 N BASOPHIL (test code = BASO) 0.9 % 0-1.0 N METAMYELOCYTE (test code = META) 0 % 0-0 N MYELOCYTE (test code = MYELO) 0 % 0.0-0.0 N PROMYELOCYTE (test code = PROM) 0 % 0-0 N ANISOCYTOSIS (test code = ANISO) 1+ PLATELET ESTIMATE (test code = PLTEST) DECREASED PLATELET MORPHOLOGY (test code = PLTMORPH) CLUMPING PRESENT IMMATURE FORMS (test code = IMMAT) 0 % 0-0 N B-TYPE NATRIURETIC [id number] 07:49:00* Test Item Value Reference Range Interpretation Comments B-TYPE NATRIURETIC PEPTIDE (test code = BNP) 34.19 pgram/mL 0-100 N LACTIC [id number] 07:31:00* Test Item Value Reference Range Interpretation Comments LACTIC ACID (test code = LACT) 2.3 mmol/L 0.4-1.9 HH Results called to [id number] by RONALD 04/24/19 0720Critical results verified and read back by Nurse? Y BASIC METABOLIC [id number] 07:19:00* Test Item Value Reference Range Interpretation Comments SODIUM (test code = NA) 142 mmol/L 136-145 N POTASSIUM (test code = K) 4.4 mmol/L 3.5-5.1 N CHLORIDE (test code = CL) 106.0 mmol/L 98-107 N CARBON DIOXIDE (test code = CO2) 24.0 mmol/L 21-32 N ANION GAP (test code = GAP) 16.4 10-20 N GLUCOSE (test code = GLU) 279 mg/dL 74-106 H BLOOD UREA NITROGEN (test code = BUN) 17 mg/dL 7-18 N GLOMERULAR FILTRATION RATE (test code = GFR) 51 mL/min >=60 Estimated GFR by using Modified MDRD formula.Chronic kidney disease is defined as either kidney damageor GFR <60 mL/min/1.73 m2 for >3 months. CREATININE (test code = CREAT) 1.10 mg/dL 0.55-1.02 H Note change in reference range due to change in reagent. BUN/CREATININE RATIO (test code = BUN/CREA) 15.5 10-20 N CALCIUM (test code = CA) 9.5 mg/dL 8.5-10.1 N HEPATIC FUNCTION [id number] 07:19:00* Test Item Value Reference Range Interpretation Comments TOTAL PROTEIN (test code = PROT) 7.2 gram/dL 6.4-8.2 N ALBUMIN (test code = ALB) 4.0 g/dL 3.4-5.0 N GLOBULIN (test code = GLOB) 3.2 gram/dL 2.7-4.2 N ALBUMIN/GLOBULIN RATIO (test code = A/G) 1.3 0.75-1.50 N BILIRUBIN TOTAL (test code = BILT) 0.30 mg/dL 0.0-1.0 N BILIRUBIN DIRECT (test code = BILD) 0.09 mg/dL 0.0-0.20 N SGOT/AST (test code = AST) 20 IUnit/L 15-37 N SGPT/ALT (test code = ALT) 24 IUnit/L 12-78 N ALKALINE PHOSPHATASE TOTAL (test code = ALKP) 148 IUnit/L 45-117 H Note change in reference range due to change in reagent. [id number] 07:19:00* Test Item Value Reference Range Interpretation Comments LIPASE (test code = LIP) 61 U/L 73.0-393.0 L [id number] 07:19:00* Test Item Value Reference Range Interpretation Comments MAGNESIUM (test code = MAG) 1.6 mg/dL 1.8-2.4 L [id number] 07:19:00* Test Item Value Reference Range Interpretation Comments TROPONIN-I (test code = TROPI) <0.015 ng/mL 0-0.045 N - XR CHEST 1 [id number] 07:07:00 FAX: Cami Power [phone] [place]: St: REG FAX: Kevin Bass MD [phone] Name: DAYANA RICHARDSON [facility] : 1960 Age/S: 59/F [address] Unit #: [id number] Loc: [place] [address] Phys: Cami Owens MD Acct: [id number] Dis Date: Status: REG ER PHONE #: [phone] Exam Date: 04/24/2019 0635 FAX #: [phone] Reason: SHORTNESS OF BREATH EXAMS: CPT CODE: [id number] XR CHEST 1 V 63005 - XR CHEST 1 V, 04/24/2019 6:27 AM Reason For Examination: SHORTNESS OF BREATH Comparison: December 03, 2018 Location: R16 Findings LUNGS: No definite pulmonary edema or consolidation PLEURA: No pleural effusions CARDIOMEDIASTINAL SILHOUETTE Unremarkable with the exception of aortic knob calcifications IMPRESSION: Bibasilar opacities are seen nonspecific, concerning for possible small consolidations at 0707 Reported and signed by: Danita Guillen M.D. CC: Cami Owens MD; Kevin Veronica MD Technologist: RICCI KAMARA (R) Trnscrd Date/Time/By: 04/24/2019 (0707) : By: [email or web address] Orig Print D/T: S: 04/24/2019 (0710) PAGE 1 Signed Report BASIC METABOLIC [id number] 06:58:00* Test Item Value Reference Range Interpretation Comments SODIUM (test code = NA) 142 mmol/L 136-145 N POTASSIUM (test code = K) 4.4 mmol/L 3.5-5.1 N CHLORIDE (test code = CL) 106.0 mmol/L 98-107 N CARBON DIOXIDE (test code = CO2) mmol/L 21-32 ANION GAP (test code = GAP) 10-20 GLUCOSE (test code = GLU) mg/dL 74-106 BLOOD UREA NITROGEN (test code = BUN) mg/dL 7-18 GLOMERULAR FILTRATION RATE (test code = GFR) mL/min >=60 CREATININE (test code = CREAT) mg/dL 0.55-1.02 BUN/CREATININE RATIO (test code = BUN/CREA) 10-20 CALCIUM (test code = CA) mg/dL 8.5-10.1 HEPATIC FUNCTION [id number] 06:58:00* Test Item Value Reference Range Interpretation Comments TOTAL PROTEIN (test code = PROT) gram/dL 6.4-8.2 ALBUMIN (test code = ALB) g/dL 3.4-5.0 GLOBULIN (test code = GLOB) gram/dL 2.7-4.2 ALBUMIN/GLOBULIN RATIO (test code = A/G) 0.75-1.50 BILIRUBIN TOTAL (test code = BILT) mg/dL 0.0-1.0 BILIRUBIN DIRECT (test code = BILD) mg/dL 0.0-0.20 SGOT/AST (test code = AST) IUnit/L 15-37 SGPT/ALT (test code = ALT) IUnit/L 12-78 ALKALINE PHOSPHATASE TOTAL (test code = ALKP) IUnit/L 45-117 [id number] 06:58:00* Test Item Value Reference Range Interpretation Comments LIPASE (test code = LIP) U/L 73.0-393.0 [id number] 06:58:00* Test Item Value Reference Range Interpretation Comments MAGNESIUM (test code = MAG) mg/dL 1.8-2.4 [id number] 06:58:00* Test Item Value Reference Range Interpretation Comments TROPONIN-I (test code = TROPI) ng/mL 0-0.045 CBC W/MANUAL [id number] 06:49:00* Test Item Value Reference Range Interpretation Comments WHITE BLOOD CELL (test code = WBC) 24.7 K/mm3 4.5-12.5 H RED BLOOD CELL (test code = RBC) 3.93 mill/mm3 3.7-5.2 N HEMOGLOBIN (test code = HGB) 12.2 gram/dL 11.5-15.5 N HEMATOCRIT (test code = HCT) 37.6 % 36.0-46.0 N MEAN CELL VOLUME (test code = MCV) 95.9 fL 80-98 N MEAN CELL HGB (test code = MCH) 31.3 picogram 27.0-33.0 N MEAN CELL HGB CONCETRATION (test code = MCHC) 32.6 gram/dL 33.0-36. 0 L RED CELL DISTRIBUTION WIDTH (test code = RDW) 12.1 % 11.6-16. 2 N RED CELL DISTRIBUTION WIDTH SD (test code = RDW-SD) 42.7 fL 37 .0-51.0 N PLATELET COUNT (test code = PLT) 218 K/mm3 150-450 N MEAN PLATELET VOLUME (test code = MPV) 13.3 fL 6.7-11.0 H IMMATURE GRANULOCYTE % (test code = IG%) 0.9 % 0.0-5.0 N NUCLEATED RBC % (test code = NRBC%) 0.0 % 0-0 N NEUTROPHIL # (test code = NT#) 21.67 K/mm3 1.8-7.7 H IMMATURE GRANULOCYTE # (test code = IG#) 0.21 x10 3/uL 0-0.03 H LYMPHOCYTE # (test code = LY#) 2.18 K/mm3 1.0-5.0 N MONOCYTE # (test code = MO#) 0.49 K/mm3 0-0.8 N EOSINOPHIL # (test code = EO#) 0.00 K/mm3 0.0-0.5 N BASOPHIL # (test code = BA#) 0.12 K/mm3 0.0-0.2 N NUCLEATED RBC # (test code = NRBC#) 0.00 K/mm3 0.0-0.1 N MANUAL DIFF REQUIRED (test code = MDIFF) YES STAIN ACCEPTABILITY (test code = STN ACCEPTABLE) TOTAL CELLS COUNTED (test code = TCC) #CELLS SEGMENTED NEUTROPHILS (test code = SEG) % 39-69 LYMPHOCYTE (test code = LYMPH) % 25-55 MONOCYTE (test code = MON) % 0-10 EOSINOPHIL (test code = EOS) % 0.0-5.0 CABOT RINGS (test code = CAB) MORPHOLOGY COMMENT (test code = MOC) PLATELET ESTIMATE (test code = PLTEST) PLATELET MORPHOLOGY (test code = PLTMORPH) CBC W/MANUAL [id number] 06:49:00* Test Item Value Reference Range Interpretation Comments WHITE BLOOD CELL (test code = WBC) 24.7 K/mm3 4.5-12.5 H RED BLOOD CELL (test code = RBC) 3.93 mill/mm3 3.7-5.2 N HEMOGLOBIN (test code = HGB) 12.2 gram/dL 11.5-15.5 N HEMATOCRIT (test code = HCT) 37.6 % 36.0-46.0 N MEAN CELL VOLUME (test code = MCV) 95.9 fL 80-98 N MEAN CELL HGB (test code = MCH) 31.3 picogram 27.0-33.0 N MEAN CELL HGB CONCETRATION (test code = MCHC) 32.6 gram/dL 33.0-36. 0 L RED CELL DISTRIBUTION WIDTH (test code = RDW) 12.1 % 11.6-16. 2 N RED CELL DISTRIBUTION WIDTH SD (test code = RDW-SD) 42.7 fL 37 .0-51.0 N PLATELET COUNT (test code = PLT) 218 K/mm3 150-450 N MEAN PLATELET VOLUME (test code = MPV) 13.3 fL 6.7-11.0 H IMMATURE GRANULOCYTE % (test code = IG%) 0.9 % 0.0-5.0 N NUCLEATED RBC % (test code = NRBC%) 0.0 % 0-0 N NEUTROPHIL # (test code = NT#) 21.67 K/mm3 1.8-7.7 H IMMATURE GRANULOCYTE # (test code = IG#) 0.21 x10 3/uL 0-0.03 H LYMPHOCYTE # (test code = LY#) 2.18 K/mm3 1.0-5.0 N MONOCYTE # (test code = MO#) 0.49 K/mm3 0-0.8 N EOSINOPHIL # (test code = EO#) 0.00 K/mm3 0.0-0.5 N BASOPHIL # (test code = BA#) 0.12 K/mm3 0.0-0.2 N NUCLEATED RBC # (test code = NRBC#) 0.00 K/mm3 0.0-0.1 N MANUAL DIFF REQUIRED (test code = MDIFF) YES STAIN ACCEPTABILITY (test code = STN ACCEPTABLE) TOTAL CELLS COUNTED (test code = TCC) #CELLS SEGMENTED NEUTROPHILS (test code = SEG) % 39-69 LYMPHOCYTE (test code = LYMPH) % 25-55 MONOCYTE (test code = MON) % 0-10 EOSINOPHIL (test code = EOS) % 0.0-5.0 CABOT RINGS (test code = CAB) MORPHOLOGY COMMENT (test code = MOC) PLATELET ESTIMATE (test code = PLTEST) PLATELET MORPHOLOGY (test code = PLTMORPH) CBC W/MANUAL [id number] 06:49:00* Test Item Value Reference Range Interpretation Comments WHITE BLOOD CELL (test code = WBC) 24.7 K/mm3 4.5-12.5 H RED BLOOD CELL (test code = RBC) 3.93 mill/mm3 3.7-5.2 N HEMOGLOBIN (test code = HGB) 12.2 gram/dL 11.5-15.5 N HEMATOCRIT (test code = HCT) 37.6 % 36.0-46.0 N MEAN CELL VOLUME (test code = MCV) 95.9 fL 80-98 N MEAN CELL HGB (test code = MCH) 31.3 picogram 27.0-33.0 N MEAN CELL HGB CONCETRATION (test code = MCHC) 32.6 gram/dL 33.0-36. 0 L RED CELL DISTRIBUTION WIDTH (test code = RDW) 12.1 % 11.6-16. 2 N RED CELL DISTRIBUTION WIDTH SD (test code = RDW-SD) 42.7 fL 37 .0-51.0 N PLATELET COUNT (test code = PLT) 218 K/mm3 150-450 N MEAN PLATELET VOLUME (test code = MPV) 13.3 fL 6.7-11.0 H IMMATURE GRANULOCYTE % (test code = IG%) 0.9 % 0.0-5.0 N NUCLEATED RBC % (test code = NRBC%) 0.0 % 0-0 N NEUTROPHIL # (test code = NT#) 21.67 K/mm3 1.8-7.7 H IMMATURE GRANULOCYTE # (test code = IG#) 0.21 x10 3/uL 0-0.03 H LYMPHOCYTE # (test code = LY#) 2.18 K/mm3 1.0-5.0 N MONOCYTE # (test code = MO#) 0.49 K/mm3 0-0.8 N EOSINOPHIL # (test code = EO#) 0.00 K/mm3 0.0-0.5 N BASOPHIL # (test code = BA#) 0.12 K/mm3 0.0-0.2 N NUCLEATED RBC # (test code = NRBC#) 0.00 K/mm3 0.0-0.1 N MANUAL DIFF REQUIRED (test code = MDIFF) YES STAIN ACCEPTABILITY (test code = STN ACCEPTABLE) TOTAL CELLS COUNTED (test code = TCC) #CELLS SEGMENTED NEUTROPHILS (test code = SEG) % 39-69 LYMPHOCYTE (test code = LYMPH) % 25-55 MONOCYTE (test code = MON) % 0-10 EOSINOPHIL (test code = EOS) % 0.0-5.0 MORPHOLOGY COMMENT (test code = MOC) PLATELET ESTIMATE (test code = PLTEST) PLATELET MORPHOLOGY (test code = PLTMORPH) CBC W/MANUAL [id number] 06:49:00* Test Item Value Reference Range Interpretation Comments WHITE BLOOD CELL (test code = WBC) 24.7 K/mm3 4.5-12.5 H RED BLOOD CELL (test code = RBC) 3.93 mill/mm3 3.7-5.2 N HEMOGLOBIN (test code = HGB) 12.2 gram/dL 11.5-15.5 N HEMATOCRIT (test code = HCT) 37.6 % 36.0-46.0 N MEAN CELL VOLUME (test code = MCV) 95.9 fL 80-98 N MEAN CELL HGB (test code = MCH) 31.3 picogram 27.0-33.0 N MEAN CELL HGB CONCETRATION (test code = MCHC) 32.6 gram/dL 33.0-36. 0 L RED CELL DISTRIBUTION WIDTH (test code = RDW) 12.1 % 11.6-16. 2 N RED CELL DISTRIBUTION WIDTH SD (test code = RDW-SD) 42.7 fL 37 .0-51.0 N PLATELET COUNT (test code = PLT) 218 K/mm3 150-450 N MEAN PLATELET VOLUME (test code = MPV) 13.3 fL 6.7-11.0 H IMMATURE GRANULOCYTE % (test code = IG%) 0.9 % 0.0-5.0 N NUCLEATED RBC % (test code = NRBC%) 0.0 % 0-0 N NEUTROPHIL # (test code = NT#) 21.67 K/mm3 1.8-7.7 H IMMATURE GRANULOCYTE # (test code = IG#) 0.21 x10 3/uL 0-0.03 H LYMPHOCYTE # (test code = LY#) 2.18 K/mm3 1.0-5.0 N MONOCYTE # (test code = MO#) 0.49 K/mm3 0-0.8 N EOSINOPHIL # (test code = EO#) 0.00 K/mm3 0.0-0.5 N BASOPHIL # (test code = BA#) 0.12 K/mm3 0.0-0.2 N NUCLEATED RBC # (test code = NRBC#) 0.00 K/mm3 0.0-0.1 N MANUAL DIFF REQUIRED (test code = MDIFF) YES STAIN ACCEPTABILITY (test code = STN ACCEPTABLE) TOTAL CELLS COUNTED (test code = TCC) #CELLS SEGMENTED NEUTROPHILS (test code = SEG) % 39-69 LYMPHOCYTE (test code = LYMPH) % 25-55 MONOCYTE (test code = MON) % 0-10 MORPHOLOGY COMMENT (test code = MOC) PLATELET ESTIMATE (test code = PLTEST) PLATELET MORPHOLOGY (test code = PLTMORPH) CBC W/MANUAL [id number] 06:49:00* Test Item Value Reference Range Interpretation Comments WHITE BLOOD CELL (test code = WBC) 24.7 K/mm3 4.5-12.5 H RED BLOOD CELL (test code = RBC) 3.93 mill/mm3 3.7-5.2 N HEMOGLOBIN (test code = HGB) 12.2 gram/dL 11.5-15.5 N HEMATOCRIT (test code = HCT) 37.6 % 36.0-46.0 N MEAN CELL VOLUME (test code = MCV) 95.9 fL 80-98 N MEAN CELL HGB (test code = MCH) 31.3 picogram 27.0-33.0 N MEAN CELL HGB CONCETRATION (test code = MCHC) 32.6 gram/dL 33.0-36. 0 L RED CELL DISTRIBUTION WIDTH (test code = RDW) 12.1 % 11.6-16. 2 N RED CELL DISTRIBUTION WIDTH SD (test code = RDW-SD) 42.7 fL 37 .0-51.0 N PLATELET COUNT (test code = PLT) 218 K/mm3 150-450 N MEAN PLATELET VOLUME (test code = MPV) 13.3 fL 6.7-11.0 H IMMATURE GRANULOCYTE % (test code = IG%) 0.9 % 0.0-5.0 N NUCLEATED RBC % (test code = NRBC%) 0.0 % 0-0 N NEUTROPHIL # (test code = NT#) 21.67 K/mm3 1.8-7.7 H IMMATURE GRANULOCYTE # (test code = IG#) 0.21 x10 3/uL 0-0.03 H LYMPHOCYTE # (test code = LY#) 2.18 K/mm3 1.0-5.0 N MONOCYTE # (test code = MO#) 0.49 K/mm3 0-0.8 N EOSINOPHIL # (test code = EO#) 0.00 K/mm3 0.0-0.5 N BASOPHIL # (test code = BA#) 0.12 K/mm3 0.0-0.2 N NUCLEATED RBC # (test code = NRBC#) 0.00 K/mm3 0.0-0.1 N MANUAL DIFF REQUIRED (test code = MDIFF) YES STAIN ACCEPTABILITY (test code = STN ACCEPTABLE) TOTAL CELLS COUNTED (test code = TCC) #CELLS SEGMENTED NEUTROPHILS (test code = SEG) % 39-69 LYMPHOCYTE (test code = LYMPH) % 25-55 MONOCYTE (test code = MON) % 0-10 EOSINOPHIL (test code = EOS) % 0.0-5.0 CABOT RINGS (test code = CAB) MORPHOLOGY COMMENT (test code = MOC) PLATELET ESTIMATE (test code = PLTEST) PLATELET MORPHOLOGY (test code = PLTMORPH) CBC W/AUTO [id number] 06:45:00* Test Item Value Reference Range Interpretation Comments WHITE BLOOD CELL (test code = WBC) K/mm3 4.5-12.5 RED BLOOD CELL (test code = RBC) mill/mm3 3.7-5.2 HEMOGLOBIN (test code = HGB) 12.2 gram/dL 11.5-15.5 N HEMATOCRIT (test code = HCT) 37.6 % 36.0-46.0 N MEAN CELL VOLUME (test code = MCV) fL 80-98 MEAN CELL HGB (test code = MCH) picogram 27.0-33.0 MEAN CELL HGB CONCETRATION (test code = MCHC) gram/dL 33.0-36. 0 RED CELL DISTRIBUTION WIDTH (test code = RDW) % 11.6-16. 2 RED CELL DISTRIBUTION WIDTH SD (test code = RDW-SD) fL 37 .0-51.0 PLATELET COUNT (test code = PLT) K/mm3 150-450 MEAN PLATELET VOLUME (test code = MPV) fL 6.7-11.0 NEUTROPHIL % (test code = NT%) % 39.0-69.0 IMMATURE GRANULOCYTE % (test code = IG%) % 0.0-5.0 LYMPHOCYTE % (test code = LY%) % 25.0-55.0 MONOCYTE % (test code = MO%) % 0.0-10.0 EOSINOPHIL % (test code = EO%) % 0.0-5.0 BASOPHIL % (test code = BA%) % 0.0-1.0 NEUTROPHIL # (test code = NT#) K/mm3 1.8-7.7 LYMPHOCYTE # (test code = LY#) K/mm3 1.0-5.0 MONOCYTE # (test code = MO#) K/mm3 0-0.8 EOSINOPHIL # (test code = EO#) K/mm3 0.0-0.5 BASOPHIL # (test code = BA#) K/mm3 0.0-0.2 ARTERIAL BLOOD [id number] 06:43:00* Test Item Value Reference Range Interpretation Comments ARTERIAL BLOOD GAS PH (test code = PHA) 7.26 7.35-7.45 L ARTERIAL BLOOD GAS PCO2 (test code = PCO2A) 62.1 mm Hg 35-45 H ARTERIAL BLOOD GAS PO2 (test code = PO2A) 285.9 mmHg 80-100 H BICARBONATE TOTAL HCO3 (test code = HCO3) 27.2 mmol/L 23.0-27.0 H BASE EXCESS (test code = TONIA) -1.0 mmol/L -3.0-5.0 N ABG O2 SATURATION (test code = SATA) 99.3 % 90.0-98.0 H ABG TYPE (test code = TYPEA) Arterial FIO2 (test code = FIO2A) 100.0 ABG VENT MODE (test code = MODEA) BiPAP ABG VENT RESP RATE (test code = RRA) 16.0 per min ABG PEEP (test code = PEEPA) 5.0 cmH2O ABG SITE (test code = SITEA) Lt RADIAL ARTERY MODIFIED ALLENS (test code = MODALL) Yes CHECK PERFORMED SODIUM (test code = NA/ABG) 141.0 mEq/L 135-148 N POTASSIUM (test code = K/ABG) 3.8 mEq/L 3.5-4.5 N CHLORIDE (test code = CL/ABG) 103 mEq/L 98-106 N GLUCOSE (test code = GLU/ABG) 316 mg/dL 74-99 H HEMATOCRIT (test code = HCT/ABG) 37 % 35-47 N IONIZED CALCIUM (test code = CAIABG) 1.20 mmol/L 1.1-1.37 N TOTAL HGB (test code = THB) 12.5 gram/dL 11.5-15.5 N HGB O2 SAT (test code = HBOSAT) 97.9 % 94.00-98.00 N CARBOXYHEMOGLOBIN (test code = HOHGBT) 1.0 %totalHg 0.5-1.5 N METHEMOGLOBIN (test code = METHGB) 0.4 % 0.0-1.50 N O2 CONTENT (test code = O2CT) 17.9 % vol 18.0-22.0 L Prothrombin [id number] 15:34:00* Test Item Value Reference Range Interpretation Comments Prothrombin Time (test code = 5902-2) 13.7 11.9-14.5 [facility]Prothromb [facility] International Ratio 2018-12-22 15:34:00* Test Item Value Reference Range Interpretation Comments Prothromb Time International Ratio (test code = 6301-6) 1.00 Oral Anticoagulant Therapy INR Values:1. Low Intensity Therapy 1.5 - 2.02 . Moderate Intensity Therapy 2.0 - 3.03. High Intensity Therapy(1) 2.5 - 3. 54. High Intensity Therapy(2) 3.0 - 4.05. Panic Value INR > 5.0 [facility] [id number] 15:34:00* Test Item Value Reference Range Interpretation Comments Sodium Level (test code = 2951-2) 137 136-145 [facility] CenterPotassium Omwtr6606-06-37 15:34:00* Test Item Value Reference Range Interpretation Comments Potassium Level (test code = 2823-3) 4.2 3.5-5.1 [facility] CenterChloride Pgggw2368-30-65 15:34:00* Test Item Value Reference Range Interpretation Comments Chloride Level (test code = 2075-0) 98 98-107 [facility] CenterCarbon Dioxide Utsxw4630-52-51 15:34:00* Test Item Value Reference Range Interpretation Comments Carbon Dioxide Level (test code = 2028-9) 33 22-29 H [facility] CenterAnion Cyf3282-22-16 15:34:00* Test Item Value Reference Range Interpretation Comments Anion Gap (test code = 25680-7) 10.2 8-16 [facility] CenterBlood Urea Vauclhby6693-17-75 15:34:00* Test Item Value Reference Range Interpretation Comments Blood Urea Nitrogen (test code = 3094-0) 12 7-26 [facility] CenterCreatinine2019-05-02 15:34:00* Test Item Value Reference Range Interpretation Comments Creatinine (test code = 2160-0) 1.15 0.57-1.11 H [facility] CenterBUN/Creatinine Nfvqq5161-61-92 15:34:00* Test Item Value Reference Range Interpretation Comments BUN/Creatinine Ratio (test code = 3097-3) 10 6-25 [facility] CenterEstimat Glomerular Filtration Rate 2018-12-22 15:34:00* Test Item Value Reference Range Interpretation Comments Estimat Glomerular Filtration Rate (test code = 385336242) 49 >60 L Ranges were taken from the National Kidney Disease Education Program and the [facility] Kidney Foundation literature.Reference ranges:60 or greater: Vfckds84-42 ( for 3 consecutive months): Chronic kidney disease 15 or less: Kidney failureNorth [facility] Medical CenterGlucose Wwhye8422-10-41 15:34:00* Test Item Value Reference Range Interpretation Comments Glucose Level (test code = NGU5591) 331 74-118 H [facility] CenterCalcium Qmnyh3116-35-98 15:34:00* Test Item Value Reference Range Interpretation Comments Calcium Level (test code = 34906-4) 9.8 8.4-10.2 [facility] CenterTotal Tvgktxdli8259-87-29 15:34:00* Test Item Value Reference Range Interpretation Comments Total Bilirubin (test code = 1975-2) 0.5 0.2-1.2 [facility] CenterAspartate Amino Transf (AST/SGOT) 2018-12-22 15:34:00* Test Item Value Reference Range Interpretation Comments Aspartate Amino Transf (AST/SGOT) (test code = Aspartate Amino Transf (AST/SGOT)) 24 5-34 [facility] CenterAlanine Aminotransferase (ALT/SGPT) 2018-12-22 15:34:00* Test Item Value Reference Range Interpretation Comments Alanine Aminotransferase (ALT/SGPT) (test code = 1742-6) 16 0-55 [facility] CenterTotal Eiqzsrr7845-95-92 15:34:00* Test Item Value Reference Range Interpretation Comments Total Protein (test code = 2885-2) 6.9 6.5-8.1 [facility] CenterAlbumin2019-05-02 15:34:00* Test Item Value Reference Range Interpretation Comments Albumin (test code = 1751-7) 3.5 3.5-5.0 [facility] CenterGlobulin2019-05-02 15:34:00* Test Item Value Reference Range Interpretation Comments Globulin (test code = 27589-1) 3.4 2.3-3.5 [facility] CenterAlbumin/Globulin Pthib9220-16-09 15:34:00 * Test Item Value Reference Range Interpretation Comments Albumin/Globulin Ratio (test code = 1759-0) 1.0 0.8-2.0 [facility] CenterAlkaline Ycybcfcmvox8013-77-95 15:34:00* Test Item Value Reference Range Interpretation Comments Alkaline Phosphatase (test code = 6768-6) 148 40-150 [facility] CenterProthrombin Eeiy6864-16-29 15:34:00* Test Item Value Reference Range Interpretation Comments Prothrombin Time (test code = 5902-2) 13.7 11.9-14.5 [facility] CenterProthromb Time International Ratio 2018-12-22 15:34:00* Test Item Value Reference Range Interpretation Comments Prothromb Time International Ratio (test code = 6301-6) 1.00 Oral Anticoagulant Therapy INR Values:1. Low Intensity Therapy 1.5 - 2.02 . Moderate Intensity Therapy 2.0 - 3.03. High Intensity Therapy(1) 2.5 - 3. 54. High Intensity Therapy(2) 3.0 - 4.05. Panic Value INR > 5.0 [facility] Zneze7709-33-87 15:34:00* Test Item Value Reference Range Interpretation Comments Sodium Level (test code = 2951-2) 137 136-145 [facility] CenterPotassium Efoye6214-06-43 15:34:00* Test Item Value Reference Range Interpretation Comments Potassium Level (test code = 2823-3) 4.2 3.5-5.1 [facility] CenterChloride Oxbtb8906-23-55 15:34:00* Test Item Value Reference Range Interpretation Comments Chloride Level (test code = 2075-0) 98 98-107 [facility] CenterCarbon Dioxide Hdbev8944-84-41 15:34:00* Test Item Value Reference Range Interpretation Comments Carbon Dioxide Level (test code = 2028-9) 33 22-29 H [facility] CenterAnion Ane3003-40-33 15:34:00* Test Item Value Reference Range Interpretation Comments Anion Gap (test code = 73682-3) 10.2 8-16 [facility] CenterBlood Urea Rnhkngtq3575-94-44 15:34:00* Test Item Value Reference Range Interpretation Comments Blood Urea Nitrogen (test code = 3094-0) 12 7-26 [facility] CenterCreatinine2019-05-02 15:34:00* Test Item Value Reference Range Interpretation Comments Creatinine (test code = 2160-0) 1.15 0.57-1.11 H [facility] CenterBUN/Creatinine Sjnyn5787-53-06 15:34:00* Test Item Value Reference Range Interpretation Comments BUN/Creatinine Ratio (test code = 3097-3) 10 6-25 [facility] CenterEstimat Glomerular Filtration Rate 2018-12-22 15:34:00* Test Item Value Reference Range Interpretation Comments Estimat Glomerular Filtration Rate (test code = 978036828) 49 >60 L Ranges were taken from the National Kidney Disease Education Program and the [facility] literature.Reference ranges:60 or greater: Yeaqkn70-53 ( for 3 consecutive months): Chronic kidney disease 15 or less: Kidney failureNorth [facility] Medical CenterGlucose Qxgsq3491-56-33 15:34:00* Test Item Value Reference Range Interpretation Comments Glucose Level (test code = SYJ8826) 331 74-118 H [facility] CenterCalcium Uxael4385-19-98 15:34:00* Test Item Value Reference Range Interpretation Comments Calcium Level (test code = 48385-3) 9.8 8.4-10.2 [facility] CenterTotal Zyjuhtmsh2693-66-82 15:34:00* Test Item Value Reference Range Interpretation Comments Total Bilirubin (test code = 1975-2) 0.5 0.2-1.2 [facility] CenterAspartate Amino Transf (AST/SGOT) 2018-12-22 15:34:00* Test Item Value Reference Range Interpretation Comments Aspartate Amino Transf (AST/SGOT) (test code = Aspartate Amino Transf (AST/SGOT)) 24 5-34 [facility] CenterAlanine Aminotransferase (ALT/SGPT) 2018-12-22 15:34:00* Test Item Value Reference Range Interpretation Comments Alanine Aminotransferase (ALT/SGPT) (test code = 1742-6) 16 0-55 [facility] CenterTotal Ljtrdvj8768-76-28 15:34:00* Test Item Value Reference Range Interpretation Comments Total Protein (test code = 2885-2) 6.9 6.5-8.1 [facility] CenterAlbumin2019-05-02 15:34:00* Test Item Value Reference Range Interpretation Comments Albumin (test code = 1751-7) 3.5 3.5-5.0 [facility] CenterGlobulin2019-05-02 15:34:00* Test Item Value Reference Range Interpretation Comments Globulin (test code = 52336-7) 3.4 2.3-3.5 [facility] CenterAlbumin/Globulin Ghdut8278-33-43 15:34:00 * Test Item Value Reference Range Interpretation Comments Albumin/Globulin Ratio (test code = 1759-0) 1.0 0.8-2.0 [facility] CenterAlkaline Yomiooqbuab4072-34-88 15:34:00* Test Item Value Reference Range Interpretation Comments Alkaline Phosphatase (test code = 6768-6) 148 40-150 [facility] CenterWhite Blood Vovfk6704-34-38 15:10:00* Test Item Value Reference Range Interpretation Comments White Blood Count (test code = 6690-2) 10.59 4.8-10.8 [facility] CenterRed Blood Ksvgt1696-55-94 15:10:00* Test Item Value Reference Range Interpretation Comments Red Blood Count (test code = 789-8) 3.59 3.6-5.1 L [facility] CenterHemoglobin2019-05-02 15:10:00* Test Item Value Reference Range Interpretation Comments Hemoglobin (test code = 59355-4) 11.2 12.0-16.0 L [facility] CenterHematocrit2019-05-02 15:10:00* Test Item Value Reference Range Interpretation Comments Hematocrit (test code = 4544-3) 34.4 34.2-44.1 [facility] CenterMean Corpuscular Yrwhyu0710-95-90 15:10:00* Test Item Value Reference Range Interpretation Comments Mean Corpuscular Volume (test code = 787-2) 95.8 81-99 [facility] CenterMean Corpuscular Jlxeaacmtv2143-30-80 15:10:00* Test Item Value Reference Range Interpretation Comments Mean Corpuscular Hemoglobin (test code = 785-6) 31.2 28-32 [facility] CenterMean Corpuscular Hemoglobin Concent 2018-12-22 15:10:00* Test Item Value Reference Range Interpretation Comments Mean Corpuscular Hemoglobin Concent (test code = 786-4) 32.6 31-35 [facility] CenterRed Cell Distribution Imlyb2835-58-08 15:10:00* Test Item Value Reference Range Interpretation Comments Red Cell Distribution Width (test code = 01147-9) 12.6 11.7 -14.4 [facility] CenterPlatelet Oqvam5342-74-03 15:10:00* Test Item Value Reference Range Interpretation Comments Platelet Count (test code = 777-3) 194 140-360 [facility] CenterNeutrophils (%) (Auto)2018-12-22 15:10:00 * Test Item Value Reference Range Interpretation Comments Neutrophils (%) (Auto) (test code = 79666-6) 69.9 38.7-80.0 [facility] CenterLymphocytes (%) (Auto)2018-12-22 15:10:00 * Test Item Value Reference Range Interpretation Comments Lymphocytes (%) (Auto) (test code = 736-9) 20.5 18.0-39.1 [facility] CenterMonocytes (%) (Auto)2018-12-22 15:10:00* Test Item Value Reference Range Interpretation Comments Monocytes (%) (Auto) (test code = 5905-5) 8.3 4.4-11.3 [facility] CenterEosinophils (%) (Auto)2018-12-22 15:10:00 * Test Item Value Reference Range Interpretation Comments Eosinophils (%) (Auto) (test code = 713-8) 0.1 0.0-6.0 [facility] CenterBasophils (%) (Auto)2018-12-22 15:10:00* Test Item Value Reference Range Interpretation Comments Basophils (%) (Auto) (test code = 706-2) 0.7 0.0-1.0 [facility] CenterIM GRANULOCYTES %2018-12-22 15:10:00* Test Item Value Reference Range Interpretation Comments IM GRANULOCYTES % (test code = IM GRANULOCYTES %) 0.5 0.0- 1.0 [facility] CenterNeutrophils # (Auto)2018-12-22 15:10:00* Test Item Value Reference Range Interpretation Comments Neutrophils # (Auto) (test code = 751-8) 7.4 2.1-6.9 H [facility] CenterLymphocytes # (Auto)2018-12-22 15:10:00* Test Item Value Reference Range Interpretation Comments Lymphocytes # (Auto) (test code = 44670-4) 2.2 1.0-3.2 [facility] CenterMonocytes # (Auto)2018-12-22 15:10:00* Test Item Value Reference Range Interpretation Comments Monocytes # (Auto) (test code = 742-7) 0.9 0.2-0.8 H [facility] CenterEosinophils # (Auto)2018-12-22 15:10:00* Test Item Value Reference Range Interpretation Comments Eosinophils # (Auto) (test code = 711-2) 0.0 0.0-0.4 [facility] CenterBasophils # (Auto)2018-12-22 15:10:00* Test Item Value Reference Range Interpretation Comments Basophils # (Auto) (test code = 704-7) 0.1 0.0-0.1 [facility] CenterAbsolute Immature Granulocyte (auto 2018-12-22 15:10:00* Test Item Value Reference Range Interpretation Comments Absolute Immature Granulocyte (auto (edith t code = Absolute Immature Granulocyte (auto) 0.05 0-0.1 [facility] CenterWhite Blood Ocojn4096-06-39 15:10:00* Test Item Value Reference Range Interpretation Comments White Blood Count (test code = 6690-2) 10.59 4.8-10.8 [facility] CenterRed Blood Eorpa1422-18-89 15:10:00* Test Item Value Reference Range Interpretation Comments Red Blood Count (test code = 789-8) 3.59 3.6-5.1 L [facility] CenterHemoglobin2019-05-02 15:10:00* Test Item Value Reference Range Interpretation Comments Hemoglobin (test code = 61060-5) 11.2 12.0-16.0 L [facility] CenterHematocrit2019-05-02 15:10:00* Test Item Value Reference Range Interpretation Comments Hematocrit (test code = 4544-3) 34.4 34.2-44.1 [facility] CenterMean Corpuscular Yppdjb5416-54-69 15:10:00* Test Item Value Reference Range Interpretation Comments Mean Corpuscular Volume (test code = 787-2) 95.8 81-99 [facility] CenterMean Corpuscular Erpjrdighk0429-25-06 15:10:00* Test Item Value Reference Range Interpretation Comments Mean Corpuscular Hemoglobin (test code = 785-6) 31.2 28-32 [facility] CenterMean Corpuscular Hemoglobin Concent 2018-12-22 15:10:00* Test Item Value Reference Range Interpretation Comments Mean Corpuscular Hemoglobin Concent (test code = 786-4) 32.6 31-35 [facility] CenterRed Cell Distribution Hyawn5336-08-43 15:10:00* Test Item Value Reference Range Interpretation Comments Red Cell Distribution Width (test code = 16344-0) 12.6 11.7 -14.4 [facility] CenterPlatelet Olbns7486-44-89 15:10:00* Test Item Value Reference Range Interpretation Comments Platelet Count (test code = 777-3) 194 140-360 [facility] CenterNeutrophils (%) (Auto)2018-12-22 15:10:00 * Test Item Value Reference Range Interpretation Comments Neutrophils (%) (Auto) (test code = 22544-3) 69.9 38.7-80.0 [facility] CenterLymphocytes (%) (Auto)2018-12-22 15:10:00 * Test Item Value Reference Range Interpretation Comments Lymphocytes (%) (Auto) (test code = 736-9) 20.5 18.0-39.1 [facility] CenterMonocytes (%) (Auto)2018-12-22 15:10:00* Test Item Value Reference Range Interpretation Comments Monocytes (%) (Auto) (test code = 5905-5) 8.3 4.4-11.3 [facility] CenterEosinophils (%) (Auto)2018-12-22 15:10:00 * Test Item Value Reference Range Interpretation Comments Eosinophils (%) (Auto) (test code = 713-8) 0.1 0.0-6.0 [facility] CenterBasophils (%) (Auto)2018-12-22 15:10:00* Test Item Value Reference Range Interpretation Comments Basophils (%) (Auto) (test code = 706-2) 0.7 0.0-1.0 [facility] CenterIM GRANULOCYTES %2018-12-22 15:10:00* Test Item Value Reference Range Interpretation Comments IM GRANULOCYTES % (test code = IM GRANULOCYTES %) 0.5 0.0- 1.0 [facility] CenterNeutrophils # (Auto)2018-12-22 15:10:00* Test Item Value Reference Range Interpretation Comments Neutrophils # (Auto) (test code = 751-8) 7.4 2.1-6.9 H [facility] CenterLymphocytes # (Auto)2018-12-22 15:10:00* Test Item Value Reference Range Interpretation Comments Lymphocytes # (Auto) (test code = 33325-0) 2.2 1.0-3.2 [facility] CenterMonocytes # (Auto)2018-12-22 15:10:00* Test Item Value Reference Range Interpretation Comments Monocytes # (Auto) (test code = 742-7) 0.9 0.2-0.8 H [facility] CenterEosinophils # (Auto)2018-12-22 15:10:00* Test Item Value Reference Range Interpretation Comments Eosinophils # (Auto) (test code = 711-2) 0.0 0.0-0.4 [facility] CenterBasophils # (Auto)2018-12-22 15:10:00* Test Item Value Reference Range Interpretation Comments Basophils # (Auto) (test code = 704-7) 0.1 0.0-0.1 [facility] CenterAbsolute Immature Granulocyte (auto 2018-12-22 15:10:00* Test Item Value Reference Range Interpretation Comments Absolute Immature Granulocyte (auto (edith t code = Absolute Immature Granulocyte (auto) 0.05 0-0.1 [facility] CenterCBC W/MANUAL [id number] 13:17:00* Test Item Value Reference Range Interpretation Comments WHITE BLOOD CELL (test code = WBC) 11.6 K/mm3 4.5-12.5 N RED BLOOD CELL (test code = RBC) 3.64 mill/mm3 3.7-5.2 L HEMOGLOBIN (test code = HGB) 10.8 gram/dL 11.5-15.5 L HEMATOCRIT (test code = HCT) 35.5 % 36.0-46.0 L MEAN CELL VOLUME (test code = MCV) 97.5 fL 80-98 N MEAN CELL HGB (test code = MCH) 29.7 picogram 27.0-33.0 N MEAN CELL HGB CONCETRATION (test code = MCHC) 30.4 gram/dL 33.0-36. 0 L RED CELL DISTRIBUTION WIDTH (test code = RDW) 13.1 % 11.6-16. 2 N RED CELL DISTRIBUTION WIDTH SD (test code = RDW-SD) 46.9 fL 37 .0-51.0 N PLATELET COUNT (test code = PLT) 179 K/mm3 150-450 RESULT VERIFIED BY REPEAT ANALYSIS MEAN PLATELET VOLUME (test code = MPV) 13.3 fL 6.7-11.0 H IMMATURE GRANULOCYTE % (test code = IG%) 0.7 % 0.0-5.0 N NUCLEATED RBC % (test code = NRBC%) 0.0 % 0-0 N NEUTROPHIL # (test code = NT#) 8.43 K/mm3 1.8-7.7 H IMMATURE GRANULOCYTE # (test code = IG#) 0.08 x10 3/uL 0-0.03 H LYMPHOCYTE # (test code = LY#) 1.79 K/mm3 1.0-5.0 N MONOCYTE # (test code = MO#) 1.18 K/mm3 0-0.8 H EOSINOPHIL # (test code = EO#) 0.00 K/mm3 0.0-0.5 N BASOPHIL # (test code = BA#) 0.08 K/mm3 0.0-0.2 N NUCLEATED RBC # (test code = NRBC#) 0.00 K/mm3 0.0-0.1 N MANUAL DIFF REQUIRED (test code = MDIFF) YES STAIN ACCEPTABILITY (test code = STN ACCEPTABLE) STAIN ACCEPTABLE TOTAL CELLS COUNTED (test code = TCC) 100 #CELLS SEGMENTED NEUTROPHILS (test code = SEG) 77 % 39-69 H BAND NEUTROPHIL (test code = BAND) 1 % 0-10 N LYMPHOCYTE (test code = LYMPH) 12 % 25-55 L REACTIVE LYMPH (test code = RELYMPH) 3 % MONOCYTE (test code = MON) 7 % 0-10 N MORPHOLOGY COMMENT (test code = MOC) NORMAL PLATELET ESTIMATE (test code = PLTEST) ADEQUATE PLATELET MORPHOLOGY (test code = PLTMORPH) SIZE VARIABLE [id number] 12:19:00* Test Item Value Reference Range Interpretation Comments GLUBED (test code = GLUBED) 122 mg/dL 74-106 H Performed by certified carousel operator at [facility] BASIC METABOLIC [id number] 12:00:00* Test Item Value Reference Range Interpretation Comments SODIUM (test code = NA) 144 mmol/L 136-145 N POTASSIUM (test code = K) 4.1 mmol/L 3.5-5.1 N CHLORIDE (test code = CL) 111.0 mmol/L 98-107 H CARBON DIOXIDE (test code = CO2) 27.0 mmol/L 21-32 N ANION GAP (test code = GAP) 10.1 10-20 N GLUCOSE (test code = GLU) 108 mg/dL 74-106 H BLOOD UREA NITROGEN (test code = BUN) 17 mg/dL 7-18 N GLOMERULAR FILTRATION RATE (test code = GFR) > 60 mL/min >=60 Estimated GFR by using Modified MDRD formula.Chronic kidney disease is defined as either kidney damageor GFR <60 mL/min/1.73 m2 for >3 months. CREATININE (test code = CREAT) 0.70 mg/dL 0.55-1.02 N Note change in reference range due to change in reagent. BUN/CREATININE RATIO (test code = BUN/CREA) 24.3 10-20 H CALCIUM (test code = CA) 8.5 mg/dL 8.5-10.1 N BASIC METABOLIC [id number] 11:54:00* Test Item Value Reference Range Interpretation Comments SODIUM (test code = NA) 144 mmol/L 136-145 N POTASSIUM (test code = K) 4.1 mmol/L 3.5-5.1 N CHLORIDE (test code = CL) 111.0 mmol/L 98-107 H CARBON DIOXIDE (test code = CO2) mmol/L 21-32 ANION GAP (test code = GAP) 10-20 GLUCOSE (test code = GLU) mg/dL 74-106 BLOOD UREA NITROGEN (test code = BUN) mg/dL 7-18 GLOMERULAR FILTRATION RATE (test code = GFR) mL/min >=60 CREATININE (test code = CREAT) mg/dL 0.55-1.02 BUN/CREATININE RATIO (test code = BUN/CREA) 10-20 CALCIUM (test code = CA) mg/dL 8.5-10.1 CBC W/MANUAL [id number] 11:21:00* Test Item Value Reference Range Interpretation Comments WHITE BLOOD CELL (test code = WBC) 11.6 K/mm3 4.5-12.5 N RED BLOOD CELL (test code = RBC) 3.64 mill/mm3 3.7-5.2 L HEMOGLOBIN (test code = HGB) 10.8 gram/dL 11.5-15.5 L HEMATOCRIT (test code = HCT) 35.5 % 36.0-46.0 L MEAN CELL VOLUME (test code = MCV) 97.5 fL 80-98 N MEAN CELL HGB (test code = MCH) 29.7 picogram 27.0-33.0 N MEAN CELL HGB CONCETRATION (test code = MCHC) 30.4 gram/dL 33.0-36. 0 L RED CELL DISTRIBUTION WIDTH (test code = RDW) 13.1 % 11.6-16. 2 N RED CELL DISTRIBUTION WIDTH SD (test code = RDW-SD) 46.9 fL 37 .0-51.0 N PLATELET COUNT (test code = PLT) 179 K/mm3 150-450 RESULT VERIFIED BY REPEAT ANALYSIS MEAN PLATELET VOLUME (test code = MPV) 13.3 fL 6.7-11.0 H IMMATURE GRANULOCYTE % (test code = IG%) 0.7 % 0.0-5.0 N NUCLEATED RBC % (test code = NRBC%) 0.0 % 0-0 N NEUTROPHIL # (test code = NT#) 8.43 K/mm3 1.8-7.7 H IMMATURE GRANULOCYTE # (test code = IG#) 0.08 x10 3/uL 0-0.03 H LYMPHOCYTE # (test code = LY#) 1.79 K/mm3 1.0-5.0 N MONOCYTE # (test code = MO#) 1.18 K/mm3 0-0.8 H EOSINOPHIL # (test code = EO#) 0.00 K/mm3 0.0-0.5 N BASOPHIL # (test code = BA#) 0.08 K/mm3 0.0-0.2 N NUCLEATED RBC # (test code = NRBC#) 0.00 K/mm3 0.0-0.1 N MANUAL DIFF REQUIRED (test code = MDIFF) YES STAIN ACCEPTABILITY (test code = STN ACCEPTABLE) TOTAL CELLS COUNTED (test code = TCC) #CELLS SEGMENTED NEUTROPHILS (test code = SEG) % 39-69 LYMPHOCYTE (test code = LYMPH) % 25-55 MONOCYTE (test code = MON) % 0-10 EOSINOPHIL (test code = EOS) % 0.0-5.0 CABOT RINGS (test code = CAB) MORPHOLOGY COMMENT (test code = MOC) PLATELET ESTIMATE (test code = PLTEST) PLATELET MORPHOLOGY (test code = PLTMORPH) CBC W/MANUAL [id number] 11:21:00* Test Item Value Reference Range Interpretation Comments WHITE BLOOD CELL (test code = WBC) 11.6 K/mm3 4.5-12.5 N RED BLOOD CELL (test code = RBC) 3.64 mill/mm3 3.7-5.2 L HEMOGLOBIN (test code = HGB) 10.8 gram/dL 11.5-15.5 L HEMATOCRIT (test code = HCT) 35.5 % 36.0-46.0 L MEAN CELL VOLUME (test code = MCV) 97.5 fL 80-98 N MEAN CELL HGB (test code = MCH) 29.7 picogram 27.0-33.0 N MEAN CELL HGB CONCETRATION (test code = MCHC) 30.4 gram/dL 33.0-36. 0 L RED CELL DISTRIBUTION WIDTH (test code = RDW) 13.1 % 11.6-16. 2 N RED CELL DISTRIBUTION WIDTH SD (test code = RDW-SD) 46.9 fL 37 .0-51.0 N PLATELET COUNT (test code = PLT) 179 K/mm3 150-450 RESULT VERIFIED BY REPEAT ANALYSIS MEAN PLATELET VOLUME (test code = MPV) 13.3 fL 6.7-11.0 H IMMATURE GRANULOCYTE % (test code = IG%) 0.7 % 0.0-5.0 N NUCLEATED RBC % (test code = NRBC%) 0.0 % 0-0 N NEUTROPHIL # (test code = NT#) 8.43 K/mm3 1.8-7.7 H IMMATURE GRANULOCYTE # (test code = IG#) 0.08 x10 3/uL 0-0.03 H LYMPHOCYTE # (test code = LY#) 1.79 K/mm3 1.0-5.0 N MONOCYTE # (test code = MO#) 1.18 K/mm3 0-0.8 H EOSINOPHIL # (test code = EO#) 0.00 K/mm3 0.0-0.5 N BASOPHIL # (test code = BA#) 0.08 K/mm3 0.0-0.2 N NUCLEATED RBC # (test code = NRBC#) 0.00 K/mm3 0.0-0.1 N MANUAL DIFF REQUIRED (test code = MDIFF) YES STAIN ACCEPTABILITY (test code = STN ACCEPTABLE) TOTAL CELLS COUNTED (test code = TCC) #CELLS SEGMENTED NEUTROPHILS (test code = SEG) % 39-69 LYMPHOCYTE (test code = LYMPH) % 25-55 MONOCYTE (test code = MON) % 0-10 EOSINOPHIL (test code = EOS) % 0.0-5.0 MORPHOLOGY COMMENT (test code = MOC) PLATELET ESTIMATE (test code = PLTEST) PLATELET MORPHOLOGY (test code = PLTMORPH) CBC W/MANUAL [id number] 11:21:00* Test Item Value Reference Range Interpretation Comments WHITE BLOOD CELL (test code = WBC) 11.6 K/mm3 4.5-12.5 N RED BLOOD CELL (test code = RBC) 3.64 mill/mm3 3.7-5.2 L HEMOGLOBIN (test code = HGB) 10.8 gram/dL 11.5-15.5 L HEMATOCRIT (test code = HCT) 35.5 % 36.0-46.0 L MEAN CELL VOLUME (test code = MCV) 97.5 fL 80-98 N MEAN CELL HGB (test code = MCH) 29.7 picogram 27.0-33.0 N MEAN CELL HGB CONCETRATION (test code = MCHC) 30.4 gram/dL 33.0-36. 0 L RED CELL DISTRIBUTION WIDTH (test code = RDW) 13.1 % 11.6-16. 2 N RED CELL DISTRIBUTION WIDTH SD (test code = RDW-SD) 46.9 fL 37 .0-51.0 N PLATELET COUNT (test code = PLT) 179 K/mm3 150-450 RESULT VERIFIED BY REPEAT ANALYSIS MEAN PLATELET VOLUME (test code = MPV) 13.3 fL 6.7-11.0 H IMMATURE GRANULOCYTE % (test code = IG%) 0.7 % 0.0-5.0 N NUCLEATED RBC % (test code = NRBC%) 0.0 % 0-0 N NEUTROPHIL # (test code = NT#) 8.43 K/mm3 1.8-7.7 H IMMATURE GRANULOCYTE # (test code = IG#) 0.08 x10 3/uL 0-0.03 H LYMPHOCYTE # (test code = LY#) 1.79 K/mm3 1.0-5.0 N MONOCYTE # (test code = MO#) 1.18 K/mm3 0-0.8 H EOSINOPHIL # (test code = EO#) 0.00 K/mm3 0.0-0.5 N BASOPHIL # (test code = BA#) 0.08 K/mm3 0.0-0.2 N NUCLEATED RBC # (test code = NRBC#) 0.00 K/mm3 0.0-0.1 N MANUAL DIFF REQUIRED (test code = MDIFF) YES STAIN ACCEPTABILITY (test code = STN ACCEPTABLE) TOTAL CELLS COUNTED (test code = TCC) #CELLS SEGMENTED NEUTROPHILS (test code = SEG) % 39-69 LYMPHOCYTE (test code = LYMPH) % 25-55 MONOCYTE (test code = MON) % 0-10 MORPHOLOGY COMMENT (test code = MOC) PLATELET ESTIMATE (test code = PLTEST) PLATELET MORPHOLOGY (test code = PLTMORPH) CBC W/MANUAL [id number] 11:20:00* Test Item Value Reference Range Interpretation Comments WHITE BLOOD CELL (test code = WBC) 11.6 K/mm3 4.5-12.5 N RED BLOOD CELL (test code = RBC) 3.64 mill/mm3 3.7-5.2 L HEMOGLOBIN (test code = HGB) 10.8 gram/dL 11.5-15.5 L HEMATOCRIT (test code = HCT) 35.5 % 36.0-46.0 L MEAN CELL VOLUME (test code = MCV) 97.5 fL 80-98 N MEAN CELL HGB (test code = MCH) 29.7 picogram 27.0-33.0 N MEAN CELL HGB CONCETRATION (test code = MCHC) 30.4 gram/dL 33.0-36. 0 L RED CELL DISTRIBUTION WIDTH (test code = RDW) 13.1 % 11.6-16. 2 N RED CELL DISTRIBUTION WIDTH SD (test code = RDW-SD) 46.9 fL 37 .0-51.0 N PLATELET COUNT (test code = PLT) 179 K/mm3 150-450 RESULT VERIFIED BY REPEAT ANALYSIS MEAN PLATELET VOLUME (test code = MPV) 13.3 fL 6.7-11.0 H IMMATURE GRANULOCYTE % (test code = IG%) 0.7 % 0.0-5.0 N NUCLEATED RBC % (test code = NRBC%) 0.0 % 0-0 N NEUTROPHIL # (test code = NT#) 8.43 K/mm3 1.8-7.7 H IMMATURE GRANULOCYTE # (test code = IG#) 0.08 x10 3/uL 0-0.03 H LYMPHOCYTE # (test code = LY#) 1.79 K/mm3 1.0-5.0 N MONOCYTE # (test code = MO#) 1.18 K/mm3 0-0.8 H EOSINOPHIL # (test code = EO#) 0.00 K/mm3 0.0-0.5 N BASOPHIL # (test code = BA#) 0.08 K/mm3 0.0-0.2 N NUCLEATED RBC # (test code = NRBC#) 0.00 K/mm3 0.0-0.1 N MANUAL DIFF REQUIRED (test code = MDIFF) YES STAIN ACCEPTABILITY (test code = STN ACCEPTABLE) TOTAL CELLS COUNTED (test code = TCC) #CELLS SEGMENTED NEUTROPHILS (test code = SEG) % 39-69 LYMPHOCYTE (test code = LYMPH) % 25-55 MONOCYTE (test code = MON) % 0-10 EOSINOPHIL (test code = EOS) % 0.0-5.0 CABOT RINGS (test code = CAB) MORPHOLOGY COMMENT (test code = MOC) PLATELET ESTIMATE (test code = PLTEST) PLATELET MORPHOLOGY (test code = PLTMORPH) CBC W/MANUAL [id number] 11:20:00* Test Item Value Reference Range Interpretation Comments WHITE BLOOD CELL (test code = WBC) 11.6 K/mm3 4.5-12.5 N RED BLOOD CELL (test code = RBC) 3.64 mill/mm3 3.7-5.2 L HEMOGLOBIN (test code = HGB) 10.8 gram/dL 11.5-15.5 L HEMATOCRIT (test code = HCT) 35.5 % 36.0-46.0 L MEAN CELL VOLUME (test code = MCV) 97.5 fL 80-98 N MEAN CELL HGB (test code = MCH) 29.7 picogram 27.0-33.0 N MEAN CELL HGB CONCETRATION (test code = MCHC) 30.4 gram/dL 33.0-36. 0 L RED CELL DISTRIBUTION WIDTH (test code = RDW) 13.1 % 11.6-16. 2 N RED CELL DISTRIBUTION WIDTH SD (test code = RDW-SD) 46.9 fL 37 .0-51.0 N PLATELET COUNT (test code = PLT) 179 K/mm3 150-450 RESULT VERIFIED BY REPEAT ANALYSIS MEAN PLATELET VOLUME (test code = MPV) 13.3 fL 6.7-11.0 H IMMATURE GRANULOCYTE % (test code = IG%) 0.7 % 0.0-5.0 N NUCLEATED RBC % (test code = NRBC%) 0.0 % 0-0 N NEUTROPHIL # (test code = NT#) 8.43 K/mm3 1.8-7.7 H IMMATURE GRANULOCYTE # (test code = IG#) 0.08 x10 3/uL 0-0.03 H LYMPHOCYTE # (test code = LY#) 1.79 K/mm3 1.0-5.0 N MONOCYTE # (test code = MO#) 1.18 K/mm3 0-0.8 H EOSINOPHIL # (test code = EO#) 0.00 K/mm3 0.0-0.5 N BASOPHIL # (test code = BA#) 0.08 K/mm3 0.0-0.2 N NUCLEATED RBC # (test code = NRBC#) 0.00 K/mm3 0.0-0.1 N MANUAL DIFF REQUIRED (test code = MDIFF) YES STAIN ACCEPTABILITY (test code = STN ACCEPTABLE) TOTAL CELLS COUNTED (test code = TCC) #CELLS SEGMENTED NEUTROPHILS (test code = SEG) % 39-69 LYMPHOCYTE (test code = LYMPH) % 25-55 MONOCYTE (test code = MON) % 0-10 EOSINOPHIL (test code = EOS) % 0.0-5.0 CABOT RINGS (test code = CAB) MORPHOLOGY COMMENT (test code = MOC) PLATELET ESTIMATE (test code = PLTEST) PLATELET MORPHOLOGY (test code = PLTMORPH) [id number] 09:43:00* Test Item Value Reference Range Interpretation Comments GLUBED (test code = GLUBED) 95 mg/dL 74-106 N Performed by certified carousel operator at [facility] [id number] 22:51:00* Test Item Value Reference Range Interpretation Comments GLUBED (test code = GLUBED) 330 mg/dL 74-106 H Performed by certified carousel operator at [facility] [id number] 16:55:00* Test Item Value Reference Range Interpretation Comments GLUBED (test code = GLUBED) 216 mg/dL 74-106 H Performed by certified carousel operator at [facility] [id number] 11:08:00* Test Item Value Reference Range Interpretation Comments GLUBED (test code = GLUBED) 121 mg/dL 74-106 H Performed by certified carousel operator at [facility] [id number] 11:08:00* Test Item Value Reference Range Interpretation Comments GLUBED (test code = GLUBED) 123 mg/dL 74-106 H Performed by certified carousel operator at [facility] - CT CHEST W/O [id number] 23:06:00 Name: DAYANA RICHARDSON [facility] : 1960 Age/S: 58 / F [address] [facility] [id number] Loc: AN[place]IO Gomez [address] Phys: Kevin Real MD Acct: [id number] Dis Date: Status: ADM IN PHONE #: [phone] Exam Date: 12/03/2018 1645 FAX #: [phone] Reason: LEUKEMOID RXN PNEUMONIA EXAMS: CPT CODE: [id number] CT CHEST W/O CONTRAST 47190 HISTORY: LEUKEMOID RXN PNEUMONIA TECHNIQUE: [address] images were obtained through the chest without contrast. Automated exposure control for dose reduction. DLP: 361 mGy-cm COMPARISON: Chest x-ray from earlier today FINDINGS: Statements: Lack of intravenous contrast limits evaluation of mediastinal contents. Lungs: Nodular left lung consolidation and patchy groundglass opacity. No pleural effusion. 5 mm right upper lobe nodule. Central airways are patent. Ca rdiovascular: Normal heart size. No pericardial effusion. No thoracic aort ic aneurysm. Normal caliber pulmonary arteries. Mediastinum: No ly mphadenopathy. Visualized thyroid is unremarkable. Normal esophagus. Included upper abdomen: Cholecystectomy. Postsurgical changes of the stomach. Bones and superficial soft tissues: Degenerative shultz ges of the spine. IMPRESSION: Nodular left lung consolidation and patchy groundglass opacity, compatible with history of pneumonia. at 2306 Reported and signed by: Steph Gray D.O. CC: Josh Roldan MD; Kevin Veronica MD; Kevin Real MD Techno logist:Irlanda Faye RT(R),CT; CTDI: DLP: Trnscb Date/Time : 12/03/2018 (2306) [email or web address] Orig Print D/T: S: 12/04/19 (0920) CTDI: DLP: PAGE 1 Kimberly d Report [id number] 20:03:00* Test Item Value Reference Range Interpretation Comments GLUBED (test code = GLUBED) 210 mg/dL 74-106 H Performed by certified carousel operator at [facility] CBC W/MANUAL [id number] 19:41:00* Test Item Value Reference Range Interpretation Comments WHITE BLOOD CELL (test code = WBC) 17.4 K/mm3 4.5-12.5 H RED BLOOD CELL (test code = RBC) 3.17 mill/mm3 3.7-5.2 L HEMOGLOBIN (test code = HGB) 9.5 gram/dL 11.5-15.5 L RESULT VERIFIED BY REPEAT ANALYSIS HEMATOCRIT (test code = HCT) 31.9 % 36.0-46.0 L MEAN CELL VOLUME (test code = MCV) 100.6 fL 80-98 H MEAN CELL HGB (test code = MCH) 30.0 picogram 27.0-33.0 N MEAN CELL HGB CONCETRATION (test code = MCHC) 29.8 gram/dL 33.0-36. 0 L RED CELL DISTRIBUTION WIDTH (test code = RDW) 13.1 % 11.6-16. 2 N RED CELL DISTRIBUTION WIDTH SD (test code = RDW-SD) 49.1 fL 37 .0-51.0 N PLATELET COUNT (test code = PLT) 117 K/mm3 150-450 L MEAN PLATELET VOLUME (test code = MPV) 12.3 fL 6.7-11.0 H IMMATURE GRANULOCYTE % (test code = IG%) 1.4 % 0.0-5.0 N NUCLEATED RBC % (test code = NRBC%) 0.0 % 0-0 N NEUTROPHIL # (test code = NT#) 15.81 K/mm3 1.8-7.7 H IMMATURE GRANULOCYTE # (test code = IG#) 0.25 x10 3/uL 0-0.03 H LYMPHOCYTE # (test code = LY#) 0.71 K/mm3 1.0-5.0 L MONOCYTE # (test code = MO#) 0.56 K/mm3 0-0.8 N EOSINOPHIL # (test code = EO#) 0.00 K/mm3 0.0-0.5 N BASOPHIL # (test code = BA#) 0.05 K/mm3 0.0-0.2 N NUCLEATED RBC # (test code = NRBC#) 0.00 K/mm3 0.0-0.1 N MANUAL DIFF REQUIRED (test code = MDIFF) YES STAIN ACCEPTABILITY (test code = STN ACCEPTABLE) STAIN ACCEPTABLE TOTAL CELLS COUNTED (test code = TCC) 100 #CELLS SEGMENTED NEUTROPHILS (test code = SEG) 95 % 39-69 H LYMPHOCYTE (test code = LYMPH) 4 % 25-55 L MONOCYTE (test code = MON) 1 % 0-10 N POLYCHROMASIA (test code = POLC) 1+ ANISOCYTOSIS (test code = ANISO) 1+ MACROCYTOSIS (test code = MACR) 1+ PLATELET ESTIMATE (test code = PLTEST) ADEQUATE PLATELET MORPHOLOGY (test code = PLTMORPH) APPEAR LARGE PT HARD STICK NOTIFIED QUIRINO [email or web address] 12/03/18 1206BASIC METABOLIC PANEL 2018-12-03 19:34:00* Test Item Value Reference Range Interpretation Comments SODIUM (test code = NA) 139 mmol/L 136-145 N POTASSIUM (test code = K) 4.4 mmol/L 3.5-5.1 N CHLORIDE (test code = CL) 107.0 mmol/L 98-107 N CARBON DIOXIDE (test code = CO2) 23.0 mmol/L 21-32 N ANION GAP (test code = GAP) 13.4 10-20 N GLUCOSE (test code = GLU) 266 mg/dL 74-106 H BLOOD UREA NITROGEN (test code = BUN) 21 mg/dL 7-18 H GLOMERULAR FILTRATION RATE (test code = GFR) 57 mL/min >=60 Estimated GFR by using Modified MDRD formula.Chronic kidney disease is defined as either kidney damageor GFR <60 mL/min/1.73 m2 for >3 months. CREATININE (test code = CREAT) 1.00 mg/dL 0.55-1.02 N Note change in reference range due to change in reagent. BUN/CREATININE RATIO (test code = BUN/CREA) 21.0 10-20 H CALCIUM (test code = CA) 7.9 mg/dL 8.5-10.1 L PT HARDSTICK.NOTIFIED QUIRINO HART.JB1 12/03/18 1424PT HARD STICK NOTIFIED QUIRINO CELESTE @[facility] [employer].SP3 12/03/18 1206BASIC METABOLIC [id number] 19:29:00* Test Item Value Reference Range Interpretation Comments SODIUM (test code = NA) 139 mmol/L 136-145 N POTASSIUM (test code = K) 4.4 mmol/L 3.5-5.1 N CHLORIDE (test code = CL) 107.0 mmol/L 98-107 N CARBON DIOXIDE (test code = CO2) mmol/L 21-32 ANION GAP (test code = GAP) 10-20 GLUCOSE (test code = GLU) mg/dL 74-106 BLOOD UREA NITROGEN (test code = BUN) mg/dL 7-18 GLOMERULAR FILTRATION RATE (test code = GFR) mL/min >=60 CREATININE (test code = CREAT) mg/dL 0.55-1.02 BUN/CREATININE RATIO (test code = BUN/CREA) 10-20 CALCIUM (test code = CA) mg/dL 8.5-10.1 PT MARYSTICK.NOTIFIED QUIRINO RYANJB1 12/03/18 1424PT HARD STICK NOTIFIED QUIRNIO CELESTE @[facility] [employer].SP3 12/03/18 1206CBC W/MANUAL [id number] 18:52:00* Test Item Value Reference Range Interpretation Comments WHITE BLOOD CELL (test code = WBC) 17.4 K/mm3 4.5-12.5 H RED BLOOD CELL (test code = RBC) 3.17 mill/mm3 3.7-5.2 L HEMOGLOBIN (test code = HGB) 9.5 gram/dL 11.5-15.5 L RESULT VERIFIED BY REPEAT ANALYSIS HEMATOCRIT (test code = HCT) 31.9 % 36.0-46.0 L MEAN CELL VOLUME (test code = MCV) 100.6 fL 80-98 H MEAN CELL HGB (test code = MCH) 30.0 picogram 27.0-33.0 N MEAN CELL HGB CONCETRATION (test code = MCHC) 29.8 gram/dL 33.0-36. 0 L RED CELL DISTRIBUTION WIDTH (test code = RDW) 13.1 % 11.6-16. 2 N RED CELL DISTRIBUTION WIDTH SD (test code = RDW-SD) 49.1 fL 37 .0-51.0 N PLATELET COUNT (test code = PLT) 117 K/mm3 150-450 L MEAN PLATELET VOLUME (test code = MPV) 12.3 fL 6.7-11.0 H IMMATURE GRANULOCYTE % (test code = IG%) 1.4 % 0.0-5.0 N NUCLEATED RBC % (test code = NRBC%) 0.0 % 0-0 N NEUTROPHIL # (test code = NT#) 15.81 K/mm3 1.8-7.7 H IMMATURE GRANULOCYTE # (test code = IG#) 0.25 x10 3/uL 0-0.03 H LYMPHOCYTE # (test code = LY#) 0.71 K/mm3 1.0-5.0 L MONOCYTE # (test code = MO#) 0.56 K/mm3 0-0.8 N EOSINOPHIL # (test code = EO#) 0.00 K/mm3 0.0-0.5 N BASOPHIL # (test code = BA#) 0.05 K/mm3 0.0-0.2 N NUCLEATED RBC # (test code = NRBC#) 0.00 K/mm3 0.0-0.1 N MANUAL DIFF REQUIRED (test code = MDIFF) YES STAIN ACCEPTABILITY (test code = STN ACCEPTABLE) TOTAL CELLS COUNTED (test code = TCC) #CELLS SEGMENTED NEUTROPHILS (test code = SEG) % 39-69 LYMPHOCYTE (test code = LYMPH) % 25-55 MONOCYTE (test code = MON) % 0-10 EOSINOPHIL (test code = EOS) % 0.0-5.0 CABOT RINGS (test code = CAB) MORPHOLOGY COMMENT (test code = MOC) PLATELET ESTIMATE (test code = PLTEST) PLATELET MORPHOLOGY (test code = PLTMORPH) PT HARD STICK NOTIFIED QUIRINO DELEON @[facility] [employer].SP3 12/03/18 1206CBC W/MANUAL DIFF 2018-12-03 18:52:00* Test Item Value Reference Range Interpretation Comments WHITE BLOOD CELL (test code = WBC) 17.4 K/mm3 4.5-12.5 H RED BLOOD CELL (test code = RBC) 3.17 mill/mm3 3.7-5.2 L HEMOGLOBIN (test code = HGB) 9.5 gram/dL 11.5-15.5 L RESULT VERIFIED BY REPEAT ANALYSIS HEMATOCRIT (test code = HCT) 31.9 % 36.0-46.0 L MEAN CELL VOLUME (test code = MCV) 100.6 fL 80-98 H MEAN CELL HGB (test code = MCH) 30.0 picogram 27.0-33.0 N MEAN CELL HGB CONCETRATION (test code = MCHC) 29.8 gram/dL 33.0-36. 0 L RED CELL DISTRIBUTION WIDTH (test code = RDW) 13.1 % 11.6-16. 2 N RED CELL DISTRIBUTION WIDTH SD (test code = RDW-SD) 49.1 fL 37 .0-51.0 N PLATELET COUNT (test code = PLT) 117 K/mm3 150-450 L MEAN PLATELET VOLUME (test code = MPV) 12.3 fL 6.7-11.0 H IMMATURE GRANULOCYTE % (test code = IG%) 1.4 % 0.0-5.0 N NUCLEATED RBC % (test code = NRBC%) 0.0 % 0-0 N NEUTROPHIL # (test code = NT#) 15.81 K/mm3 1.8-7.7 H IMMATURE GRANULOCYTE # (test code = IG#) 0.25 x10 3/uL 0-0.03 H LYMPHOCYTE # (test code = LY#) 0.71 K/mm3 1.0-5.0 L MONOCYTE # (test code = MO#) 0.56 K/mm3 0-0.8 N EOSINOPHIL # (test code = EO#) 0.00 K/mm3 0.0-0.5 N BASOPHIL # (test code = BA#) 0.05 K/mm3 0.0-0.2 N NUCLEATED RBC # (test code = NRBC#) 0.00 K/mm3 0.0-0.1 N MANUAL DIFF REQUIRED (test code = MDIFF) YES STAIN ACCEPTABILITY (test code = STN ACCEPTABLE) TOTAL CELLS COUNTED (test code = TCC) #CELLS SEGMENTED NEUTROPHILS (test code = SEG) % 39-69 LYMPHOCYTE (test code = LYMPH) % 25-55 MONOCYTE (test code = MON) % 0-10 EOSINOPHIL (test code = EOS) % 0.0-5.0 CABOT RINGS (test code = CAB) MORPHOLOGY COMMENT (test code = MOC) PLATELET ESTIMATE (test code = PLTEST) PLATELET MORPHOLOGY (test code = PLTMORPH) PT HARD STICK NOTIFIED QUIRINO DELEON @[email or web address] 12/03/18 1206CBC W/MANUAL DIFF 2018-12-03 18:52:00* Test Item Value Reference Range Interpretation Comments WHITE BLOOD CELL (test code = WBC) 17.4 K/mm3 4.5-12.5 H RED BLOOD CELL (test code = RBC) 3.17 mill/mm3 3.7-5.2 L HEMOGLOBIN (test code = HGB) 9.5 gram/dL 11.5-15.5 L RESULT VERIFIED BY REPEAT ANALYSIS HEMATOCRIT (test code = HCT) 31.9 % 36.0-46.0 L MEAN CELL VOLUME (test code = MCV) 100.6 fL 80-98 H MEAN CELL HGB (test code = MCH) 30.0 picogram 27.0-33.0 N MEAN CELL HGB CONCETRATION (test code = MCHC) 29.8 gram/dL 33.0-36. 0 L RED CELL DISTRIBUTION WIDTH (test code = RDW) 13.1 % 11.6-16. 2 N RED CELL DISTRIBUTION WIDTH SD (test code = RDW-SD) 49.1 fL 37 .0-51.0 N PLATELET COUNT (test code = PLT) 117 K/mm3 150-450 L MEAN PLATELET VOLUME (test code = MPV) 12.3 fL 6.7-11.0 H IMMATURE GRANULOCYTE % (test code = IG%) 1.4 % 0.0-5.0 N NUCLEATED RBC % (test code = NRBC%) 0.0 % 0-0 N NEUTROPHIL # (test code = NT#) 15.81 K/mm3 1.8-7.7 H IMMATURE GRANULOCYTE # (test code = IG#) 0.25 x10 3/uL 0-0.03 H LYMPHOCYTE # (test code = LY#) 0.71 K/mm3 1.0-5.0 L MONOCYTE # (test code = MO#) 0.56 K/mm3 0-0.8 N EOSINOPHIL # (test code = EO#) 0.00 K/mm3 0.0-0.5 N BASOPHIL # (test code = BA#) 0.05 K/mm3 0.0-0.2 N NUCLEATED RBC # (test code = NRBC#) 0.00 K/mm3 0.0-0.1 N MANUAL DIFF REQUIRED (test code = MDIFF) YES STAIN ACCEPTABILITY (test code = STN ACCEPTABLE) TOTAL CELLS COUNTED (test code = TCC) #CELLS SEGMENTED NEUTROPHILS (test code = SEG) % 39-69 LYMPHOCYTE (test code = LYMPH) % 25-55 MONOCYTE (test code = MON) % 0-10 EOSINOPHIL (test code = EOS) % 0.0-5.0 MORPHOLOGY COMMENT (test code = MOC) PLATELET ESTIMATE (test code = PLTEST) PLATELET MORPHOLOGY (test code = PLTMORPH) PT HARD STICK NOTIFIED QUIRINO DELEON @[email or web address] 12/03/18 1206CBC W/MANUAL DIFF 2018-12-03 18:52:00* Test Item Value Reference Range Interpretation Comments WHITE BLOOD CELL (test code = WBC) 17.4 K/mm3 4.5-12.5 H RED BLOOD CELL (test code = RBC) 3.17 mill/mm3 3.7-5.2 L HEMOGLOBIN (test code = HGB) 9.5 gram/dL 11.5-15.5 L RESULT VERIFIED BY REPEAT ANALYSIS HEMATOCRIT (test code = HCT) 31.9 % 36.0-46.0 L MEAN CELL VOLUME (test code = MCV) 100.6 fL 80-98 H MEAN CELL HGB (test code = MCH) 30.0 picogram 27.0-33.0 N MEAN CELL HGB CONCETRATION (test code = MCHC) 29.8 gram/dL 33.0-36. 0 L RED CELL DISTRIBUTION WIDTH (test code = RDW) 13.1 % 11.6-16. 2 N RED CELL DISTRIBUTION WIDTH SD (test code = RDW-SD) 49.1 fL 37 .0-51.0 N PLATELET COUNT (test code = PLT) 117 K/mm3 150-450 L MEAN PLATELET VOLUME (test code = MPV) 12.3 fL 6.7-11.0 H IMMATURE GRANULOCYTE % (test code = IG%) 1.4 % 0.0-5.0 N NUCLEATED RBC % (test code = NRBC%) 0.0 % 0-0 N NEUTROPHIL # (test code = NT#) 15.81 K/mm3 1.8-7.7 H IMMATURE GRANULOCYTE # (test code = IG#) 0.25 x10 3/uL 0-0.03 H LYMPHOCYTE # (test code = LY#) 0.71 K/mm3 1.0-5.0 L MONOCYTE # (test code = MO#) 0.56 K/mm3 0-0.8 N EOSINOPHIL # (test code = EO#) 0.00 K/mm3 0.0-0.5 N BASOPHIL # (test code = BA#) 0.05 K/mm3 0.0-0.2 N NUCLEATED RBC # (test code = NRBC#) 0.00 K/mm3 0.0-0.1 N MANUAL DIFF REQUIRED (test code = MDIFF) YES STAIN ACCEPTABILITY (test code = STN ACCEPTABLE) TOTAL CELLS COUNTED (test code = TCC) #CELLS SEGMENTED NEUTROPHILS (test code = SEG) % 39-69 LYMPHOCYTE (test code = LYMPH) % 25-55 MONOCYTE (test code = MON) % 0-10 MORPHOLOGY COMMENT (test code = MOC) PLATELET ESTIMATE (test code = PLTEST) PLATELET MORPHOLOGY (test code = PLTMORPH) PT HARD STICK NOTIFIED QUIRINO DELEON @[email or web address] 12/03/18 1206CBC W/MANUAL DIFF 2018-12-03 18:52:00* Test Item Value Reference Range Interpretation Comments WHITE BLOOD CELL (test code = WBC) 17.4 K/mm3 4.5-12.5 H RED BLOOD CELL (test code = RBC) 3.17 mill/mm3 3.7-5.2 L HEMOGLOBIN (test code = HGB) 9.5 gram/dL 11.5-15.5 L RESULT VERIFIED BY REPEAT ANALYSIS HEMATOCRIT (test code = HCT) 31.9 % 36.0-46.0 L MEAN CELL VOLUME (test code = MCV) 100.6 fL 80-98 H MEAN CELL HGB (test code = MCH) 30.0 picogram 27.0-33.0 N MEAN CELL HGB CONCETRATION (test code = MCHC) 29.8 gram/dL 33.0-36. 0 L RED CELL DISTRIBUTION WIDTH (test code = RDW) 13.1 % 11.6-16. 2 N RED CELL DISTRIBUTION WIDTH SD (test code = RDW-SD) 49.1 fL 37 .0-51.0 N PLATELET COUNT (test code = PLT) 117 K/mm3 150-450 L MEAN PLATELET VOLUME (test code = MPV) 12.3 fL 6.7-11.0 H IMMATURE GRANULOCYTE % (test code = IG%) 1.4 % 0.0-5.0 N NUCLEATED RBC % (test code = NRBC%) 0.0 % 0-0 N NEUTROPHIL # (test code = NT#) 15.81 K/mm3 1.8-7.7 H IMMATURE GRANULOCYTE # (test code = IG#) 0.25 x10 3/uL 0-0.03 H LYMPHOCYTE # (test code = LY#) 0.71 K/mm3 1.0-5.0 L MONOCYTE # (test code = MO#) 0.56 K/mm3 0-0.8 N EOSINOPHIL # (test code = EO#) 0.00 K/mm3 0.0-0.5 N BASOPHIL # (test code = BA#) 0.05 K/mm3 0.0-0.2 N NUCLEATED RBC # (test code = NRBC#) 0.00 K/mm3 0.0-0.1 N MANUAL DIFF REQUIRED (test code = MDIFF) YES STAIN ACCEPTABILITY (test code = STN ACCEPTABLE) TOTAL CELLS COUNTED (test code = TCC) #CELLS SEGMENTED NEUTROPHILS (test code = SEG) % 39-69 LYMPHOCYTE (test code = LYMPH) % 25-55 MONOCYTE (test code = MON) % 0-10 EOSINOPHIL (test code = EOS) % 0.0-5.0 CABOT RINGS (test code = CAB) MORPHOLOGY COMMENT (test code = MOC) PLATELET ESTIMATE (test code = PLTEST) PLATELET MORPHOLOGY (test code = PLTMORPH) PT HARD STICK NOTIFIED QUIRINO PANCHO [email or web address] 12/03/18 [id number] 16:02:00 * Test Item Value Reference Range Interpretation Comments GLUBED (test code = GLUBED) 352 mg/dL 74-106 H Performed by certified carousel operator at [facility] [id number] 11:11:00* Test Item Value Reference Range Interpretation Comments GLUBED (test code = GLUBED) 156 mg/dL 74-106 H Performed by certified carousel operator at [facility] - XR CHEST 2 [id number] 10:11:00 FAX: Josh Roldan MD [phone] [place]: [address] St: ADM FAX: Kevin Bass MD [phone] FAX: Kevin Marrero MD [phone] Name: DAYANA RICHARDSON [facility] : 1960 Age/S: 58/F Saumya Campoverde Unit #: [id number] Loc: [address] [place] [address] Phys: Kevin Real MD Acct: [id number] Dis Date: Status: ADM IN ONE #: [phone] Exam Date: 12/03/2018 1009 FAX #: [phone] Reason: pneumonia EXAMS: CPT CODE: [id number] XR CHEST 2 V [id number] REASON FOR EXAM: pneumonia Exam Order Date: 12/03/2018 2:00 PM Ordering MIgor: Kevin Real MD PROCEDURE: - XR CHEST 2 V COMPARISON: 12/01/2018 FINDINGS: PA and lateral views of the chest show mild patchy airspace opacities of the left base. No evid ence of effusion. The heart size is within normal limits. Pulmonary vascul atures are unremarkable. The osseous structures are grossly intact. IMPRESSION: Slight interval improvement in the moderate consolidation of the left base Electronically Signed by Margaret Vogt on at 1011 Reported and signed by: Armando Vogt M.D. CC: Josh Roldan MD; Kevin Veronica MD; Kevin Real MD Te chnologist: uHgo Gonzalez RT(R) Trnscrd Date/ Time/By: 12/03/2018 (1011) : By: SeverianoL Orig Print D/T: S: 12/04/19 19 (1015) PAGE 1 Signed Report [id number] 08:04:00* Test Item Value Reference Range Interpretation Comments GLUBED (test code = GLUBED) 112 mg/dL 74-106 H Performed by certified carousel operator at [facility] [id number] 20:37:00* Test Item Value Reference Range Interpretation Comments GLUBED (test code = GLUBED) 323 mg/dL 74-106 H Performed by certified carousel operator at [facility] [id number] 17:05:00* Test Item Value Reference Range Interpretation Comments GLUBED (test code = GLUBED) 328 mg/dL 74-106 H Performed by certified carousel operator at [facility] [id number] 11:39:00* Test Item Value Reference Range Interpretation Comments GLUBED (test code = GLUBED) 273 mg/dL 74-106 H Performed by certified carousel operator at [facility] [id number] 10:56:00* Test Item Value Reference Range Interpretation Comments GLUBED (test code = GLUBED) 157 mg/dL 74-106 H Performed by certified carousel operator at [facility] [id number] 07:48:00* Test Item Value Reference Range Interpretation Comments GLUBED (test code = GLUBED) 297 mg/dL 74-106 H Performed by certified carousel operator at [facility] CBC W/MANUAL [id number] 05:25:00* Test Item Value Reference Range Interpretation Comments WHITE BLOOD CELL (test code = WBC) 32.6 K/mm3 4.5-12.5 H RESULT VERIFIED BY REPEAT ANALYSIS RED BLOOD CELL (test code = RBC) 3.78 mill/mm3 3.7-5.2 N HEMOGLOBIN (test code = HGB) 11.5 gram/dL 11.5-15.5 RESULT VERIFIED BY REPEAT ANALYSIS HEMATOCRIT (test code = HCT) 36.3 % 36.0-46.0 N MEAN CELL VOLUME (test code = MCV) 96.0 fL 80-98 N MEAN CELL HGB (test code = MCH) 30.4 picogram 27.0-33.0 N MEAN CELL HGB CONCETRATION (test code = MCHC) 31.7 gram/dL 33.0-36. 0 L RED CELL DISTRIBUTION WIDTH (test code = RDW) 12.4 % 11.6-16. 2 N RED CELL DISTRIBUTION WIDTH SD (test code = RDW-SD) 43.8 fL 37 .0-51.0 N PLATELET COUNT (test code = PLT) 156 K/mm3 150-450 N MEAN PLATELET VOLUME (test code = MPV) 13.9 fL 6.7-11.0 H IMMATURE GRANULOCYTE % (test code = IG%) 2.5 % 0.0-5.0 N NUCLEATED RBC % (test code = NRBC%) 0.0 % 0-0 N NEUTROPHIL # (test code = NT#) 30.05 K/mm3 1.8-7.7 H IMMATURE GRANULOCYTE # (test code = IG#) 0.82 x10 3/uL 0-0.03 H LYMPHOCYTE # (test code = LY#) 0.76 K/mm3 1.0-5.0 L MONOCYTE # (test code = MO#) 0.92 K/mm3 0-0.8 H EOSINOPHIL # (test code = EO#) 0.00 K/mm3 0.0-0.5 N BASOPHIL # (test code = BA#) 0.09 K/mm3 0.0-0.2 N NUCLEATED RBC # (test code = NRBC#) 0.00 K/mm3 0.0-0.1 N MANUAL DIFF REQUIRED (test code = MDIFF) YES STAIN ACCEPTABILITY (test code = STN ACCEPTABLE) STAIN ACCEPTABLE TOTAL CELLS COUNTED (test code = TCC) 115 #CELLS SEGMENTED NEUTROPHILS (test code = SEG) 88.7 % 39-69 H BAND NEUTROPHIL (test code = BAND) 2.6 % 0-10 N LYMPHOCYTE (test code = LYMPH) 2.6 % 25-55 L REACTIVE LYMPH (test code = RELYMPH) 0 % MONOCYTE (test code = MON) 0 % 0-10 N EOSINOPHIL (test code = EOS) 0 % 0.0-5.0 N BASOPHIL (test code = BASO) 0 % 0-1.0 N METAMYELOCYTE (test code = META) 4.4 % 0-0 H MYELOCYTE (test code = MYELO) 0 % 0.0-0.0 N PROMYELOCYTE (test code = PROM) 1.7 % 0-0 H ANISOCYTOSIS (test code = ANISO) 2+ MACROCYTOSIS (test code = MACR) 2+ SPHEROCYTES (test code = SPH) 2+ PLATELET ESTIMATE (test code = PLTEST) ADEQUATE PLATELET MORPHOLOGY (test code = PLTMORPH) NORMAL IMMATURE FORMS (test code = IMMAT) 0 % LACTIC [id number] 03:17:00* Test Item Value Reference Range Interpretation Comments LACTIC ACID (test code = LACT) 3.9 mmol/L 0.4-1.9 HH Results called to [id number] by AMILCAR 12/02/18 0316Critical results verified and read back by Nurse? Carolyn ANGEL [id number] 03:13:00* Test Item Value Reference Range Interpretation Comments GLYCOSYLATED HEMOGLOBIN (HA1C) (test code = GLYHGB) 9.5 % HbA1 4. 8-6.0 H ESTIMATED AVERAGE GLUCOSE (test code = EAG) 226 MG/DL PT HARDSTICK NURSE KBMDBLIPID PROFILE (CORONARY RISK)2018-12-02 03:12:00* Test Item Value Reference Range Interpretation Comments TRIGLYCERIDES (test code = TRIG) 68 mg/dL 20-150 N CHOLESTEROL (test code = CHOL) 115 mg/dL 0-200 N CHOLESTEROL/HDL RATIO (test code = CHOLHDL) 1.0 RATIO 0-4.9 N RISK ASSOCIATED WITH CHOL/HDL RATIOS: Risk Male Female1/2 AVERAGE 3.43 3.27AVERAGE 4.97 4.442X AVERAGE 9.55 7.053X AVERAGE 23.39 11.04 REFERENCE VALUE IS RELATED TO RISK LEVELS ASRECOMMENDED BY THE [facility]. HEART, LUNG, AND BLOOD INST. HDL CHOLESTEROL (test code = HDL) 78 mg/dL 40-60 H LIPOPROTEIN LDL (test code = LDL) 22 mg/dL 100-129 L Reference Interval: mg/dL mmol/L Optimal <100 <2.6Near/above optimal 100-129 2.6- 3.3Borderline High 130-159 3.4-4.1High 160-189 4.1-4.9Very High >=190 >=4.9========= This LDL result is a direct measurement.========= PT HARDSTICKDBCOMPREHENSIVE METABOLIC [id number] 03:08:00* Test Item Value Reference Range Interpretation Comments SODIUM (test code = NA) 141 mmol/L 136-145 N POTASSIUM (test code = K) 4.1 mmol/L 3.5-5.1 N CHLORIDE (test code = CL) 107.0 mmol/L 98-107 N CARBON DIOXIDE (test code = CO2) 25.0 mmol/L 21-32 N ANION GAP (test code = GAP) 13.1 10-20 N GLUCOSE (test code = GLU) 261 mg/dL 74-106 H BLOOD UREA NITROGEN (test code = BUN) 25 mg/dL 7-18 H GLOMERULAR FILTRATION RATE (test code = GFR) 46 mL/min >=60 Estimated GFR by using Modified MDRD formula.Chronic kidney disease is defined as either kidney damageor GFR <60 mL/min/1.73 m2 for >3 months. CREATININE (test code = CREAT) 1.20 mg/dL 0.55-1.02 H Note change in reference range due to change in reagent. BUN/CREATININE RATIO (test code = BUN/CREA) 20.8 10-20 H TOTAL PROTEIN (test code = PROT) 5.9 gram/dL 6.4-8.2 L ALBUMIN (test code = ALB) 3.0 g/dL 3.4-5.0 L GLOBULIN (test code = GLOB) 2.9 gram/dL 2.7-4.2 N ALBUMIN/GLOBULIN RATIO (test code = A/G) 1.0 0.75-1.50 N CALCIUM (test code = CA) 8.3 mg/dL 8.5-10.1 L BILIRUBIN TOTAL (test code = BILT) 0.50 mg/dL 0.0-1.0 N SGOT/AST (test code = AST) 25 IUnit/L 15-37 N SGPT/ALT (test code = ALT) 19 IUnit/L 12-78 N ALKALINE PHOSPHATASE TOTAL (test code = ALKP) 75 IUnit/L 45-117 N Note change in reference range due to change in reagent. COMPREHENSIVE METABOLIC [id number] 03:01:00* Test Item Value Reference Range Interpretation Comments SODIUM (test code = NA) 141 mmol/L 136-145 N POTASSIUM (test code = K) 4.1 mmol/L 3.5-5.1 N CHLORIDE (test code = CL) 107.0 mmol/L 98-107 N CARBON DIOXIDE (test code = CO2) mmol/L 21-32 ANION GAP (test code = GAP) 10-20 GLUCOSE (test code = GLU) mg/dL 74-106 BLOOD UREA NITROGEN (test code = BUN) mg/dL 7-18 GLOMERULAR FILTRATION RATE (test code = GFR) mL/min >=60 CREATININE (test code = CREAT) mg/dL 0.55-1.02 BUN/CREATININE RATIO (test code = BUN/CREA) 10-20 TOTAL PROTEIN (test code = PROT) gram/dL 6.4-8.2 ALBUMIN (test code = ALB) g/dL 3.4-5.0 GLOBULIN (test code = GLOB) gram/dL 2.7-4.2 ALBUMIN/GLOBULIN RATIO (test code = A/G) 0.75-1.50 CALCIUM (test code = CA) mg/dL 8.5-10.1 BILIRUBIN TOTAL (test code = BILT) mg/dL 0.0-1.0 SGOT/AST (test code = AST) IUnit/L 15-37 SGPT/ALT (test code = ALT) IUnit/L 12-78 ALKALINE PHOSPHATASE TOTAL (test code = ALKP) IUnit/L 45-117 CBC W/MANUAL [id number] 02:52:00* Test Item Value Reference Range Interpretation Comments WHITE BLOOD CELL (test code = WBC) 32.6 K/mm3 4.5-12.5 H RESULT VERIFIED BY REPEAT ANALYSIS RED BLOOD CELL (test code = RBC) 3.78 mill/mm3 3.7-5.2 N HEMOGLOBIN (test code = HGB) 11.5 gram/dL 11.5-15.5 RESULT VERIFIED BY REPEAT ANALYSIS HEMATOCRIT (test code = HCT) 36.3 % 36.0-46.0 N MEAN CELL VOLUME (test code = MCV) 96.0 fL 80-98 N MEAN CELL HGB (test code = MCH) 30.4 picogram 27.0-33.0 N MEAN CELL HGB CONCETRATION (test code = MCHC) 31.7 gram/dL 33.0-36. 0 L RED CELL DISTRIBUTION WIDTH (test code = RDW) 12.4 % 11.6-16. 2 N RED CELL DISTRIBUTION WIDTH SD (test code = RDW-SD) 43.8 fL 37 .0-51.0 N PLATELET COUNT (test code = PLT) 156 K/mm3 150-450 N MEAN PLATELET VOLUME (test code = MPV) 13.9 fL 6.7-11.0 H IMMATURE GRANULOCYTE % (test code = IG%) 2.5 % 0.0-5.0 N NUCLEATED RBC % (test code = NRBC%) 0.0 % 0-0 N NEUTROPHIL # (test code = NT#) 30.05 K/mm3 1.8-7.7 H IMMATURE GRANULOCYTE # (test code = IG#) 0.82 x10 3/uL 0-0.03 H LYMPHOCYTE # (test code = LY#) 0.76 K/mm3 1.0-5.0 L MONOCYTE # (test code = MO#) 0.92 K/mm3 0-0.8 H EOSINOPHIL # (test code = EO#) 0.00 K/mm3 0.0-0.5 N BASOPHIL # (test code = BA#) 0.09 K/mm3 0.0-0.2 N NUCLEATED RBC # (test code = NRBC#) 0.00 K/mm3 0.0-0.1 N MANUAL DIFF REQUIRED (test code = MDIFF) YES STAIN ACCEPTABILITY (test code = STN ACCEPTABLE) TOTAL CELLS COUNTED (test code = TCC) #CELLS SEGMENTED NEUTROPHILS (test code = SEG) % 39-69 LYMPHOCYTE (test code = LYMPH) % 25-55 MONOCYTE (test code = MON) % 0-10 EOSINOPHIL (test code = EOS) % 0.0-5.0 CABOT RINGS (test code = CAB) MORPHOLOGY COMMENT (test code = MOC) PLATELET ESTIMATE (test code = PLTEST) PLATELET MORPHOLOGY (test code = PLTMORPH) CBC W/MANUAL [id number] 02:52:00* Test Item Value Reference Range Interpretation Comments WHITE BLOOD CELL (test code = WBC) 32.6 K/mm3 4.5-12.5 H RESULT VERIFIED BY REPEAT ANALYSIS RED BLOOD CELL (test code = RBC) 3.78 mill/mm3 3.7-5.2 N HEMOGLOBIN (test code = HGB) 11.5 gram/dL 11.5-15.5 RESULT VERIFIED BY REPEAT ANALYSIS HEMATOCRIT (test code = HCT) 36.3 % 36.0-46.0 N MEAN CELL VOLUME (test code = MCV) 96.0 fL 80-98 N MEAN CELL HGB (test code = MCH) 30.4 picogram 27.0-33.0 N MEAN CELL HGB CONCETRATION (test code = MCHC) 31.7 gram/dL 33.0-36. 0 L RED CELL DISTRIBUTION WIDTH (test code = RDW) 12.4 % 11.6-16. 2 N RED CELL DISTRIBUTION WIDTH SD (test code = RDW-SD) 43.8 fL 37 .0-51.0 N PLATELET COUNT (test code = PLT) 156 K/mm3 150-450 N MEAN PLATELET VOLUME (test code = MPV) 13.9 fL 6.7-11.0 H IMMATURE GRANULOCYTE % (test code = IG%) 2.5 % 0.0-5.0 N NUCLEATED RBC % (test code = NRBC%) 0.0 % 0-0 N NEUTROPHIL # (test code = NT#) 30.05 K/mm3 1.8-7.7 H IMMATURE GRANULOCYTE # (test code = IG#) 0.82 x10 3/uL 0-0.03 H LYMPHOCYTE # (test code = LY#) 0.76 K/mm3 1.0-5.0 L MONOCYTE # (test code = MO#) 0.92 K/mm3 0-0.8 H EOSINOPHIL # (test code = EO#) 0.00 K/mm3 0.0-0.5 N BASOPHIL # (test code = BA#) 0.09 K/mm3 0.0-0.2 N NUCLEATED RBC # (test code = NRBC#) 0.00 K/mm3 0.0-0.1 N MANUAL DIFF REQUIRED (test code = MDIFF) YES STAIN ACCEPTABILITY (test code = STN ACCEPTABLE) TOTAL CELLS COUNTED (test code = TCC) #CELLS SEGMENTED NEUTROPHILS (test code = SEG) % 39-69 LYMPHOCYTE (test code = LYMPH) % 25-55 MONOCYTE (test code = MON) % 0-10 EOSINOPHIL (test code = EOS) % 0.0-5.0 CABOT RINGS (test code = CAB) MORPHOLOGY COMMENT (test code = MOC) PLATELET ESTIMATE (test code = PLTEST) PLATELET MORPHOLOGY (test code = PLTMORPH) CBC W/MANUAL [id number] 02:52:00* Test Item Value Reference Range Interpretation Comments WHITE BLOOD CELL (test code = WBC) 32.6 K/mm3 4.5-12.5 H RESULT VERIFIED BY REPEAT ANALYSIS RED BLOOD CELL (test code = RBC) 3.78 mill/mm3 3.7-5.2 N HEMOGLOBIN (test code = HGB) 11.5 gram/dL 11.5-15.5 RESULT VERIFIED BY REPEAT ANALYSIS HEMATOCRIT (test code = HCT) 36.3 % 36.0-46.0 N MEAN CELL VOLUME (test code = MCV) 96.0 fL 80-98 N MEAN CELL HGB (test code = MCH) 30.4 picogram 27.0-33.0 N MEAN CELL HGB CONCETRATION (test code = MCHC) 31.7 gram/dL 33.0-36. 0 L RED CELL DISTRIBUTION WIDTH (test code = RDW) 12.4 % 11.6-16. 2 N RED CELL DISTRIBUTION WIDTH SD (test code = RDW-SD) 43.8 fL 37 .0-51.0 N PLATELET COUNT (test code = PLT) 156 K/mm3 150-450 N MEAN PLATELET VOLUME (test code = MPV) 13.9 fL 6.7-11.0 H IMMATURE GRANULOCYTE % (test code = IG%) 2.5 % 0.0-5.0 N NUCLEATED RBC % (test code = NRBC%) 0.0 % 0-0 N NEUTROPHIL # (test code = NT#) 30.05 K/mm3 1.8-7.7 H IMMATURE GRANULOCYTE # (test code = IG#) 0.82 x10 3/uL 0-0.03 H LYMPHOCYTE # (test code = LY#) 0.76 K/mm3 1.0-5.0 L MONOCYTE # (test code = MO#) 0.92 K/mm3 0-0.8 H EOSINOPHIL # (test code = EO#) 0.00 K/mm3 0.0-0.5 N BASOPHIL # (test code = BA#) 0.09 K/mm3 0.0-0.2 N NUCLEATED RBC # (test code = NRBC#) 0.00 K/mm3 0.0-0.1 N MANUAL DIFF REQUIRED (test code = MDIFF) YES STAIN ACCEPTABILITY (test code = STN ACCEPTABLE) TOTAL CELLS COUNTED (test code = TCC) #CELLS SEGMENTED NEUTROPHILS (test code = SEG) % 39-69 LYMPHOCYTE (test code = LYMPH) % 25-55 MONOCYTE (test code = MON) % 0-10 EOSINOPHIL (test code = EOS) % 0.0-5.0 MORPHOLOGY COMMENT (test code = MOC) PLATELET ESTIMATE (test code = PLTEST) PLATELET MORPHOLOGY (test code = PLTMORPH) CBC W/MANUAL [id number] 02:52:00* Test Item Value Reference Range Interpretation Comments WHITE BLOOD CELL (test code = WBC) 32.6 K/mm3 4.5-12.5 H RESULT VERIFIED BY REPEAT ANALYSIS RED BLOOD CELL (test code = RBC) 3.78 mill/mm3 3.7-5.2 N HEMOGLOBIN (test code = HGB) 11.5 gram/dL 11.5-15.5 RESULT VERIFIED BY REPEAT ANALYSIS HEMATOCRIT (test code = HCT) 36.3 % 36.0-46.0 N MEAN CELL VOLUME (test code = MCV) 96.0 fL 80-98 N MEAN CELL HGB (test code = MCH) 30.4 picogram 27.0-33.0 N MEAN CELL HGB CONCETRATION (test code = MCHC) 31.7 gram/dL 33.0-36. 0 L RED CELL DISTRIBUTION WIDTH (test code = RDW) 12.4 % 11.6-16. 2 N RED CELL DISTRIBUTION WIDTH SD (test code = RDW-SD) 43.8 fL 37 .0-51.0 N PLATELET COUNT (test code = PLT) 156 K/mm3 150-450 N MEAN PLATELET VOLUME (test code = MPV) 13.9 fL 6.7-11.0 H IMMATURE GRANULOCYTE % (test code = IG%) 2.5 % 0.0-5.0 N NUCLEATED RBC % (test code = NRBC%) 0.0 % 0-0 N NEUTROPHIL # (test code = NT#) 30.05 K/mm3 1.8-7.7 H IMMATURE GRANULOCYTE # (test code = IG#) 0.82 x10 3/uL 0-0.03 H LYMPHOCYTE # (test code = LY#) 0.76 K/mm3 1.0-5.0 L MONOCYTE # (test code = MO#) 0.92 K/mm3 0-0.8 H EOSINOPHIL # (test code = EO#) 0.00 K/mm3 0.0-0.5 N BASOPHIL # (test code = BA#) 0.09 K/mm3 0.0-0.2 N NUCLEATED RBC # (test code = NRBC#) 0.00 K/mm3 0.0-0.1 N MANUAL DIFF REQUIRED (test code = MDIFF) YES STAIN ACCEPTABILITY (test code = STN ACCEPTABLE) TOTAL CELLS COUNTED (test code = TCC) #CELLS SEGMENTED NEUTROPHILS (test code = SEG) % 39-69 LYMPHOCYTE (test code = LYMPH) % 25-55 MONOCYTE (test code = MON) % 0-10 MORPHOLOGY COMMENT (test code = MOC) PLATELET ESTIMATE (test code = PLTEST) PLATELET MORPHOLOGY (test code = PLTMORPH) CBC W/MANUAL [id number] 02:52:00* Test Item Value Reference Range Interpretation Comments WHITE BLOOD CELL (test code = WBC) 32.6 K/mm3 4.5-12.5 H RESULT VERIFIED BY REPEAT ANALYSIS RED BLOOD CELL (test code = RBC) 3.78 mill/mm3 3.7-5.2 N HEMOGLOBIN (test code = HGB) 11.5 gram/dL 11.5-15.5 RESULT VERIFIED BY REPEAT ANALYSIS HEMATOCRIT (test code = HCT) 36.3 % 36.0-46.0 N MEAN CELL VOLUME (test code = MCV) 96.0 fL 80-98 N MEAN CELL HGB (test code = MCH) 30.4 picogram 27.0-33.0 N MEAN CELL HGB CONCETRATION (test code = MCHC) 31.7 gram/dL 33.0-36. 0 L RED CELL DISTRIBUTION WIDTH (test code = RDW) 12.4 % 11.6-16. 2 N RED CELL DISTRIBUTION WIDTH SD (test code = RDW-SD) 43.8 fL 37 .0-51.0 N PLATELET COUNT (test code = PLT) 156 K/mm3 150-450 N MEAN PLATELET VOLUME (test code = MPV) 13.9 fL 6.7-11.0 H IMMATURE GRANULOCYTE % (test code = IG%) 2.5 % 0.0-5.0 N NUCLEATED RBC % (test code = NRBC%) 0.0 % 0-0 N NEUTROPHIL # (test code = NT#) 30.05 K/mm3 1.8-7.7 H IMMATURE GRANULOCYTE # (test code = IG#) 0.82 x10 3/uL 0-0.03 H LYMPHOCYTE # (test code = LY#) 0.76 K/mm3 1.0-5.0 L MONOCYTE # (test code = MO#) 0.92 K/mm3 0-0.8 H EOSINOPHIL # (test code = EO#) 0.00 K/mm3 0.0-0.5 N BASOPHIL # (test code = BA#) 0.09 K/mm3 0.0-0.2 N NUCLEATED RBC # (test code = NRBC#) 0.00 K/mm3 0.0-0.1 N MANUAL DIFF REQUIRED (test code = MDIFF) YES STAIN ACCEPTABILITY (test code = STN ACCEPTABLE) TOTAL CELLS COUNTED (test code = TCC) #CELLS SEGMENTED NEUTROPHILS (test code = SEG) % 39-69 LYMPHOCYTE (test code = LYMPH) % 25-55 MONOCYTE (test code = MON) % 0-10 EOSINOPHIL (test code = EOS) % 0.0-5.0 CABOT RINGS (test code = CAB) MORPHOLOGY COMMENT (test code = MOC) PLATELET ESTIMATE (test code = PLTEST) PLATELET MORPHOLOGY (test code = PLTMORPH) [id number] 21:24:00* Test Item Value Reference Range Interpretation Comments GLUBED (test code = GLUBED) 295 mg/dL 74-106 H Performed by certified carousel operator at [facility] LACTIC [id number] 20:59:00* Test Item Value Reference Range Interpretation Comments LACTIC ACID (test code = LACT) 2.6 mmol/L 0.4-1.9 HH Results called to [id number] by V.LAB.LT 12/01/182058Critical results verified and read back by Nurse? Y LACTIC [id number] 17:50:00* Test Item Value Reference Range Interpretation Comments LACTIC ACID (test code = LACT) 3.1 mmol/L 0.4-1.9 HH Results called to [id number] by V.LAB.LT 12/01/18 1750Critical results verified and read back by Nurse? Y [id number] 17:37:00* Test Item Value Reference Range Interpretation Comments TROPONIN-I (test code = TROPI) 1.270 ng/mL 0-0.045 HH RESULT VERIFIED BY REPEAT ANALYSIS COMMENTS TO PRODUCT DEVELOPMENT SPECIALIST: COLLECT 3 HOURS AFTER PREVIOUS [id number] 15:06:00* Test Item Value Reference Range Interpretation Comments TROPONIN-I (test code = TROPI) 1.050 ng/mL 0-0.045 HH Results called to [id number] by V.LAB.W 12/01/18 1505Critical results verified and read back by Nurse? Y COMMENTS TO PRODUCT DEVELOPMENT SPECIALIST: COLLECT 3 HOURS AFTER PREVIOUS SAMPLELACTIC [id number] 15:06:00* Test Item Value Reference Range Interpretation Comments LACTIC ACID (test code = LACT) 2.7 mmol/L 0.4-1.9 HH Results called to [id number] by V.LAB.W 12/01/18 1506Critical results verified and read back by Nurse? Y CBC W/MANUAL [id number] 14:38:00* Test Item Value Reference Range Interpretation Comments WHITE BLOOD CELL (test code = WBC) 14.8 K/mm3 4.5-12.5 H RED BLOOD CELL (test code = RBC) 4.53 mill/mm3 3.7-5.2 N HEMOGLOBIN (test code = HGB) 13.5 gram/dL 11.5-15.5 N HEMATOCRIT (test code = HCT) 42.4 % 36.0-46.0 N MEAN CELL VOLUME (test code = MCV) 96.2 fL 80-98 N MEAN CELL HGB (test code = MCH) 29.8 picogram 27.0-33.0 N MEAN CELL HGB CONCETRATION (test code = MCHC) 31.0 gram/dL 33.0-36. 0 L RED CELL DISTRIBUTION WIDTH (test code = RDW) 12.5 % 11.6-16. 2 N RED CELL DISTRIBUTION WIDTH SD (test code = RDW-SD) 44.2 fL 37 .0-51.0 N PLATELET COUNT (test code = PLT) 174 K/mm3 150-450 N MEAN PLATELET VOLUME (test code = MPV) 13.9 fL 6.7-11.0 H IMMATURE GRANULOCYTE % (test code = IG%) 0.5 % 0.0-5.0 N NUCLEATED RBC % (test code = NRBC%) 0.0 % 0-0 N NEUTROPHIL # (test code = NT#) 13.80 K/mm3 1.8-7.7 H IMMATURE GRANULOCYTE # (test code = IG#) 0.07 x10 3/uL 0-0.03 H LYMPHOCYTE # (test code = LY#) 0.72 K/mm3 1.0-5.0 L MONOCYTE # (test code = MO#) 0.15 K/mm3 0-0.8 N EOSINOPHIL # (test code = EO#) 0.00 K/mm3 0.0-0.5 N BASOPHIL # (test code = BA#) 0.03 K/mm3 0.0-0.2 N NUCLEATED RBC # (test code = NRBC#) 0.00 K/mm3 0.0-0.1 N MANUAL DIFF REQUIRED (test code = MDIFF) YES STAIN ACCEPTABILITY (test code = STN ACCEPTABLE) STAIN ACCEPTABLE TOTAL CELLS COUNTED (test code = TCC) 114 #CELLS SEGMENTED NEUTROPHILS (test code = SEG) 91.2 % 39-69 H BAND NEUTROPHIL (test code = BAND) 3.5 % 0-10 N LYMPHOCYTE (test code = LYMPH) 4.4 % 25-55 L REACTIVE LYMPH (test code = RELYMPH) 0 % MONOCYTE (test code = MON) 0.9 % 0-10 N EOSINOPHIL (test code = EOS) 0 % 0.0-5.0 N BASOPHIL (test code = BASO) 0 % 0-1.0 N METAMYELOCYTE (test code = META) 0 % 0-0 N MYELOCYTE (test code = MYELO) 0 % 0.0-0.0 N PROMYELOCYTE (test code = PROM) 0 % 0-0 N HYPOCHROMIA (test code = HYPO) 1+ POIKILOCYTOSIS (test code = POIK) 1+ ANISOCYTOSIS (test code = ANISO) 1+ PLATELET ESTIMATE (test code = PLTEST) ADEQUATE PLATELET MORPHOLOGY (test code = PLTMORPH) APPEAR LARGE IMMATURE FORMS (test code = IMMAT) 0 % [id number] 13:40:00* Test Item Value Reference Range Interpretation Comments GLUBED (test code = GLUBED) 353 mg/dL 74-106 H Performed by certified carousel operator at [facility] LACTIC [id number] 11:14:00* Test Item Value Reference Range Interpretation Comments LACTIC ACID (test code = LACT) 2.2 mmol/L 0.4-1.9 HH Results called to [id number] by MEÑO 12/01/18 1113Critical results verified and read back by Nurse? Y URINALYSIS [id number] 10:33:00* Test Item Value Reference Range Interpretation Comments UA COLOR (test code = COLU) LIGHT YELLOW YELLOW UA APPEARANCE (test code = APPU) CLEAR CLEAR UA GLUCOSE DIPSTICK (test code = DGLUU) >=500 mg/dL NEGATIVE A UA BILIRUBIN DIPSTICK (test code = BILU) NEGATIVE mg/dL NEGATIVE UA KETONE DIPSTICK (test code = KETU) NEGATIVE mg/dL NEGATIVE UA SPECIFIC GRAVITY (test code = SGU) 1.032 1.001-1.035 UA BLOOD DIPSTICK (test code = ERINN) Negative mg/dL NEGATIVE UA PH DIPSTICK (test code = EVELYN) 5.0 5.0-8.0 UA PROTEIN DIPSTICK (test code = PROU) NEGATIVE mg/dL NEGATIVE UA UROBILINIOGEN DIPSTICK (test code = URO) NEGATIVE mg/dL NEGATIVE UA NITRITE DIPSTICK (test code = SMITH) NEGATIVE NEGATIVE UA LEUKOCYTE ESTERASE W REFLEX (test code = LEUUR) TRACE Jazmine/uL NEG ATIVE A UA WBC (test code = WBCU) 11-20 per HPF 0-5 A UA RBC (test code = RBCU) 0-2 #/HPF 0-5 UA EPITHELIAL CELLS (test code = EPIU) FEW per HPF FEW UA BACTERIA (test code = BACU) FEW #/HPF NONE A UA MUCUS (test code = MUCU) FEW #/LPF FEW UA YEAST (test code = YEASTU) FEW #/HPF NONE A Urine Source? Clean CatchPROCALCITONIN (PCT)2018-12-01 10:01:00* Test Item Value Reference Range Interpretation Comments PROCALCITONIN (PCT) (test code = PROCAL) 2.87 ng/ml Results called to [id number] by MEÑO 12/01/18 1001Critical results verified and read back by Nurse? YConcentration Interpretation (ng/mL) <0.51 Sepsis is not likely. Local bacterial infection is possible. (LOW RISK for progression to Sepsis) 0.51 - 2.00 Sepsis is possible, but other conditions are known to elevate PCT as well. (MODERATE RISK for progression to Sepsis) > 2.00 Sepsis is likely, unless other causes are known. (HIGH RISK for progression to Severe Sepsis or Septic Shock) 10.00 High likelihood of Severe Sepsis or Septic or higher Shock. *Increased PCT levels may not always be related to systemic bacterial infection.*Low PCT levels do not automatically exclude the presence of bacterial infection.*All results should be interpreted taking into account the patients history. LACTIC [id number] 09:52:00* Test Item Value Reference Range Interpretation Comments LACTIC ACID (test code = LACT) 2.3 mmol/L 0.4-1.9 HH Results called to [id number] by [email or web address] 12/01/18 0950Critical results verified and read back by Nurse? Y POC LACTIC [id number] 08:58:00* Test Item Value Reference Range Interpretation Comments POC LACTIC ACID (test code = POCLAC) 2.33 MMOL/L 0.4-2.2 H B-TYPE NATRIURETIC [id number] 08:54:00* Test Item Value Reference Range Interpretation Comments B-TYPE NATRIURETIC PEPTIDE (test code = BNP) 44.91 pgram/mL 0-100 N COMPREHENSIVE METABOLIC [id number] 08:23:00* Test Item Value Reference Range Interpretation Comments SODIUM (test code = NA) 140 mmol/L 136-145 N POTASSIUM (test code = K) 4.4 mmol/L 3.5-5.1 N CHLORIDE (test code = CL) 106.0 mmol/L 98-107 N CARBON DIOXIDE (test code = CO2) 25.0 mmol/L 21-32 N ANION GAP (test code = GAP) 13.4 10-20 N GLUCOSE (test code = GLU) 345 mg/dL 74-106 H BLOOD UREA NITROGEN (test code = BUN) 22 mg/dL 7-18 H GLOMERULAR FILTRATION RATE (test code = GFR) 46 mL/min >=60 Estimated GFR by using Modified MDRD formula.Chronic kidney disease is defined as either kidney damageor GFR <60 mL/min/1.73 m2 for >3 months. CREATININE (test code = CREAT) 1.20 mg/dL 0.55-1.02 H Note change in reference range due to change in reagent. BUN/CREATININE RATIO (test code = BUN/CREA) 18.3 10-20 N TOTAL PROTEIN (test code = PROT) 7.3 gram/dL 6.4-8.2 N ALBUMIN (test code = ALB) 3.8 g/dL 3.4-5.0 N GLOBULIN (test code = GLOB) 3.5 gram/dL 2.7-4.2 N ALBUMIN/GLOBULIN RATIO (test code = A/G) 1.1 0.75-1.50 N CALCIUM (test code = CA) 9.1 mg/dL 8.5-10.1 N BILIRUBIN TOTAL (test code = BILT) 0.30 mg/dL 0.0-1.0 N SGOT/AST (test code = AST) 19 IUnit/L 15-37 N SGPT/ALT (test code = ALT) 17 IUnit/L 12-78 N ALKALINE PHOSPHATASE TOTAL (test code = ALKP) 145 IUnit/L 45-117 H Note change in reference range due to change in reagent. [id number] 08:23:00* Test Item Value Reference Range Interpretation Comments LIPASE (test code = LIP) 96 U/L 73.0-393.0 N [id number] 08:23:00* Test Item Value Reference Range Interpretation Comments CKMB (test code = CKMBT) 1.8 ng/mL 0-6.0 N [id number] 08:23:00* Test Item Value Reference Range Interpretation Comments TROPONIN-I (test code = TROPI) 0.065 ng/mL 0-0.045 HH CBC W/MANUAL [id number] 08:19:00* Test Item Value Reference Range Interpretation Comments WHITE BLOOD CELL (test code = WBC) 14.8 K/mm3 4.5-12.5 H RED BLOOD CELL (test code = RBC) 4.53 mill/mm3 3.7-5.2 N HEMOGLOBIN (test code = HGB) 13.5 gram/dL 11.5-15.5 N HEMATOCRIT (test code = HCT) 42.4 % 36.0-46.0 N MEAN CELL VOLUME (test code = MCV) 96.2 fL 80-98 N MEAN CELL HGB (test code = MCH) 29.8 picogram 27.0-33.0 N MEAN CELL HGB CONCETRATION (test code = MCHC) 31.0 gram/dL 33.0-36. 0 L RED CELL DISTRIBUTION WIDTH (test code = RDW) 12.5 % 11.6-16. 2 N RED CELL DISTRIBUTION WIDTH SD (test code = RDW-SD) 44.2 fL 37 .0-51.0 N PLATELET COUNT (test code = PLT) 174 K/mm3 150-450 N MEAN PLATELET VOLUME (test code = MPV) 13.9 fL 6.7-11.0 H IMMATURE GRANULOCYTE % (test code = IG%) 0.5 % 0.0-5.0 N NUCLEATED RBC % (test code = NRBC%) 0.0 % 0-0 N NEUTROPHIL # (test code = NT#) 13.80 K/mm3 1.8-7.7 H IMMATURE GRANULOCYTE # (test code = IG#) 0.07 x10 3/uL 0-0.03 H LYMPHOCYTE # (test code = LY#) 0.72 K/mm3 1.0-5.0 L MONOCYTE # (test code = MO#) 0.15 K/mm3 0-0.8 N EOSINOPHIL # (test code = EO#) 0.00 K/mm3 0.0-0.5 N BASOPHIL # (test code = BA#) 0.03 K/mm3 0.0-0.2 N NUCLEATED RBC # (test code = NRBC#) 0.00 K/mm3 0.0-0.1 N MANUAL DIFF REQUIRED (test code = MDIFF) YES STAIN ACCEPTABILITY (test code = STN ACCEPTABLE) TOTAL CELLS COUNTED (test code = TCC) #CELLS SEGMENTED NEUTROPHILS (test code = SEG) % 39-69 LYMPHOCYTE (test code = LYMPH) % 25-55 MONOCYTE (test code = MON) % 0-10 EOSINOPHIL (test code = EOS) % 0.0-5.0 CABOT RINGS (test code = CAB) MORPHOLOGY COMMENT (test code = MOC) PLATELET ESTIMATE (test code = PLTEST) PLATELET MORPHOLOGY (test code = PLTMORPH) CBC W/MANUAL [id number] 08:19:00* Test Item Value Reference Range Interpretation Comments WHITE BLOOD CELL (test code = WBC) 14.8 K/mm3 4.5-12.5 H RED BLOOD CELL (test code = RBC) 4.53 mill/mm3 3.7-5.2 N HEMOGLOBIN (test code = HGB) 13.5 gram/dL 11.5-15.5 N HEMATOCRIT (test code = HCT) 42.4 % 36.0-46.0 N MEAN CELL VOLUME (test code = MCV) 96.2 fL 80-98 N MEAN CELL HGB (test code = MCH) 29.8 picogram 27.0-33.0 N MEAN CELL HGB CONCETRATION (test code = MCHC) 31.0 gram/dL 33.0-36. 0 L RED CELL DISTRIBUTION WIDTH (test code = RDW) 12.5 % 11.6-16. 2 N RED CELL DISTRIBUTION WIDTH SD (test code = RDW-SD) 44.2 fL 37 .0-51.0 N PLATELET COUNT (test code = PLT) 174 K/mm3 150-450 N MEAN PLATELET VOLUME (test code = MPV) 13.9 fL 6.7-11.0 H IMMATURE GRANULOCYTE % (test code = IG%) 0.5 % 0.0-5.0 N NUCLEATED RBC % (test code = NRBC%) 0.0 % 0-0 N NEUTROPHIL # (test code = NT#) 13.80 K/mm3 1.8-7.7 H IMMATURE GRANULOCYTE # (test code = IG#) 0.07 x10 3/uL 0-0.03 H LYMPHOCYTE # (test code = LY#) 0.72 K/mm3 1.0-5.0 L MONOCYTE # (test code = MO#) 0.15 K/mm3 0-0.8 N EOSINOPHIL # (test code = EO#) 0.00 K/mm3 0.0-0.5 N BASOPHIL # (test code = BA#) 0.03 K/mm3 0.0-0.2 N NUCLEATED RBC # (test code = NRBC#) 0.00 K/mm3 0.0-0.1 N MANUAL DIFF REQUIRED (test code = MDIFF) YES STAIN ACCEPTABILITY (test code = STN ACCEPTABLE) TOTAL CELLS COUNTED (test code = TCC) #CELLS SEGMENTED NEUTROPHILS (test code = SEG) % 39-69 LYMPHOCYTE (test code = LYMPH) % 25-55 MONOCYTE (test code = MON) % 0-10 EOSINOPHIL (test code = EOS) % 0.0-5.0 CABOT RINGS (test code = CAB) MORPHOLOGY COMMENT (test code = MOC) PLATELET ESTIMATE (test code = PLTEST) PLATELET MORPHOLOGY (test code = PLTMORPH) CBC W/MANUAL [id number] 08:19:00* Test Item Value Reference Range Interpretation Comments WHITE BLOOD CELL (test code = WBC) 14.8 K/mm3 4.5-12.5 H RED BLOOD CELL (test code = RBC) 4.53 mill/mm3 3.7-5.2 N HEMOGLOBIN (test code = HGB) 13.5 gram/dL 11.5-15.5 N HEMATOCRIT (test code = HCT) 42.4 % 36.0-46.0 N MEAN CELL VOLUME (test code = MCV) 96.2 fL 80-98 N MEAN CELL HGB (test code = MCH) 29.8 picogram 27.0-33.0 N MEAN CELL HGB CONCETRATION (test code = MCHC) 31.0 gram/dL 33.0-36. 0 L RED CELL DISTRIBUTION WIDTH (test code = RDW) 12.5 % 11.6-16. 2 N RED CELL DISTRIBUTION WIDTH SD (test code = RDW-SD) 44.2 fL 37 .0-51.0 N PLATELET COUNT (test code = PLT) 174 K/mm3 150-450 N MEAN PLATELET VOLUME (test code = MPV) 13.9 fL 6.7-11.0 H IMMATURE GRANULOCYTE % (test code = IG%) 0.5 % 0.0-5.0 N NUCLEATED RBC % (test code = NRBC%) 0.0 % 0-0 N NEUTROPHIL # (test code = NT#) 13.80 K/mm3 1.8-7.7 H IMMATURE GRANULOCYTE # (test code = IG#) 0.07 x10 3/uL 0-0.03 H LYMPHOCYTE # (test code = LY#) 0.72 K/mm3 1.0-5.0 L MONOCYTE # (test code = MO#) 0.15 K/mm3 0-0.8 N EOSINOPHIL # (test code = EO#) 0.00 K/mm3 0.0-0.5 N BASOPHIL # (test code = BA#) 0.03 K/mm3 0.0-0.2 N NUCLEATED RBC # (test code = NRBC#) 0.00 K/mm3 0.0-0.1 N MANUAL DIFF REQUIRED (test code = MDIFF) YES STAIN ACCEPTABILITY (test code = STN ACCEPTABLE) TOTAL CELLS COUNTED (test code = TCC) #CELLS SEGMENTED NEUTROPHILS (test code = SEG) % 39-69 LYMPHOCYTE (test code = LYMPH) % 25-55 MONOCYTE (test code = MON) % 0-10 EOSINOPHIL (test code = EOS) % 0.0-5.0 MORPHOLOGY COMMENT (test code = MOC) PLATELET ESTIMATE (test code = PLTEST) PLATELET MORPHOLOGY (test code = PLTMORPH) CBC W/MANUAL [id number] 08:19:00* Test Item Value Reference Range Interpretation Comments WHITE BLOOD CELL (test code = WBC) 14.8 K/mm3 4.5-12.5 H RED BLOOD CELL (test code = RBC) 4.53 mill/mm3 3.7-5.2 N HEMOGLOBIN (test code = HGB) 13.5 gram/dL 11.5-15.5 N HEMATOCRIT (test code = HCT) 42.4 % 36.0-46.0 N MEAN CELL VOLUME (test code = MCV) 96.2 fL 80-98 N MEAN CELL HGB (test code = MCH) 29.8 picogram 27.0-33.0 N MEAN CELL HGB CONCETRATION (test code = MCHC) 31.0 gram/dL 33.0-36. 0 L RED CELL DISTRIBUTION WIDTH (test code = RDW) 12.5 % 11.6-16. 2 N RED CELL DISTRIBUTION WIDTH SD (test code = RDW-SD) 44.2 fL 37 .0-51.0 N PLATELET COUNT (test code = PLT) 174 K/mm3 150-450 N MEAN PLATELET VOLUME (test code = MPV) 13.9 fL 6.7-11.0 H IMMATURE GRANULOCYTE % (test code = IG%) 0.5 % 0.0-5.0 N NUCLEATED RBC % (test code = NRBC%) 0.0 % 0-0 N NEUTROPHIL # (test code = NT#) 13.80 K/mm3 1.8-7.7 H IMMATURE GRANULOCYTE # (test code = IG#) 0.07 x10 3/uL 0-0.03 H LYMPHOCYTE # (test code = LY#) 0.72 K/mm3 1.0-5.0 L MONOCYTE # (test code = MO#) 0.15 K/mm3 0-0.8 N EOSINOPHIL # (test code = EO#) 0.00 K/mm3 0.0-0.5 N BASOPHIL # (test code = BA#) 0.03 K/mm3 0.0-0.2 N NUCLEATED RBC # (test code = NRBC#) 0.00 K/mm3 0.0-0.1 N MANUAL DIFF REQUIRED (test code = MDIFF) YES STAIN ACCEPTABILITY (test code = STN ACCEPTABLE) TOTAL CELLS COUNTED (test code = TCC) #CELLS SEGMENTED NEUTROPHILS (test code = SEG) % 39-69 LYMPHOCYTE (test code = LYMPH) % 25-55 MONOCYTE (test code = MON) % 0-10 MORPHOLOGY COMMENT (test code = MOC) PLATELET ESTIMATE (test code = PLTEST) PLATELET MORPHOLOGY (test code = PLTMORPH) CBC W/MANUAL [id number] 08:19:00* Test Item Value Reference Range Interpretation Comments WHITE BLOOD CELL (test code = WBC) 14.8 K/mm3 4.5-12.5 H RED BLOOD CELL (test code = RBC) 4.53 mill/mm3 3.7-5.2 N HEMOGLOBIN (test code = HGB) 13.5 gram/dL 11.5-15.5 N HEMATOCRIT (test code = HCT) 42.4 % 36.0-46.0 N MEAN CELL VOLUME (test code = MCV) 96.2 fL 80-98 N MEAN CELL HGB (test code = MCH) 29.8 picogram 27.0-33.0 N MEAN CELL HGB CONCETRATION (test code = MCHC) 31.0 gram/dL 33.0-36. 0 L RED CELL DISTRIBUTION WIDTH (test code = RDW) 12.5 % 11.6-16. 2 N RED CELL DISTRIBUTION WIDTH SD (test code = RDW-SD) 44.2 fL 37 .0-51.0 N PLATELET COUNT (test code = PLT) 174 K/mm3 150-450 N MEAN PLATELET VOLUME (test code = MPV) 13.9 fL 6.7-11.0 H IMMATURE GRANULOCYTE % (test code = IG%) 0.5 % 0.0-5.0 N NUCLEATED RBC % (test code = NRBC%) 0.0 % 0-0 N NEUTROPHIL # (test code = NT#) 13.80 K/mm3 1.8-7.7 H IMMATURE GRANULOCYTE # (test code = IG#) 0.07 x10 3/uL 0-0.03 H LYMPHOCYTE # (test code = LY#) 0.72 K/mm3 1.0-5.0 L MONOCYTE # (test code = MO#) 0.15 K/mm3 0-0.8 N EOSINOPHIL # (test code = EO#) 0.00 K/mm3 0.0-0.5 N BASOPHIL # (test code = BA#) 0.03 K/mm3 0.0-0.2 N NUCLEATED RBC # (test code = NRBC#) 0.00 K/mm3 0.0-0.1 N MANUAL DIFF REQUIRED (test code = MDIFF) YES STAIN ACCEPTABILITY (test code = STN ACCEPTABLE) TOTAL CELLS COUNTED (test code = TCC) #CELLS SEGMENTED NEUTROPHILS (test code = SEG) % 39-69 LYMPHOCYTE (test code = LYMPH) % 25-55 MONOCYTE (test code = MON) % 0-10 EOSINOPHIL (test code = EOS) % 0.0-5.0 CABOT RINGS (test code = CAB) MORPHOLOGY COMMENT (test code = MOC) PLATELET ESTIMATE (test code = PLTEST) PLATELET MORPHOLOGY (test code = PLTMORPH) CBC W/AUTO [id number] 07:58:00* Test Item Value Reference Range Interpretation Comments WHITE BLOOD CELL (test code = WBC) K/mm3 4.5-12.5 RED BLOOD CELL (test code = RBC) mill/mm3 3.7-5.2 HEMOGLOBIN (test code = HGB) 13.5 gram/dL 11.5-15.5 N HEMATOCRIT (test code = HCT) 42.4 % 36.0-46.0 N MEAN CELL VOLUME (test code = MCV) fL 80-98 MEAN CELL HGB (test code = MCH) picogram 27.0-33.0 MEAN CELL HGB CONCETRATION (test code = MCHC) gram/dL 33.0-36. 0 RED CELL DISTRIBUTION WIDTH (test code = RDW) % 11.6-16. 2 RED CELL DISTRIBUTION WIDTH SD (test code = RDW-SD) fL 37 .0-51.0 PLATELET COUNT (test code = PLT) K/mm3 150-450 MEAN PLATELET VOLUME (test code = MPV) fL 6.7-11.0 NEUTROPHIL % (test code = NT%) % 39.0-69.0 IMMATURE GRANULOCYTE % (test code = IG%) % 0.0-5.0 LYMPHOCYTE % (test code = LY%) % 25.0-55.0 MONOCYTE % (test code = MO%) % 0.0-10.0 EOSINOPHIL % (test code = EO%) % 0.0-5.0 BASOPHIL % (test code = BA%) % 0.0-1.0 NEUTROPHIL # (test code = NT#) K/mm3 1.8-7.7 LYMPHOCYTE # (test code = LY#) K/mm3 1.0-5.0 MONOCYTE # (test code = MO#) K/mm3 0-0.8 EOSINOPHIL # (test code = EO#) K/mm3 0.0-0.5 BASOPHIL # (test code = BA#) K/mm3 0.0-0.2 COMPREHENSIVE METABOLIC [id number] 07:41:00* Test Item Value Reference Range Interpretation Comments SODIUM (test code = NA) 140 mmol/L 136-145 N POTASSIUM (test code = K) 4.4 mmol/L 3.5-5.1 N CHLORIDE (test code = CL) 106.0 mmol/L 98-107 N CARBON DIOXIDE (test code = CO2) mmol/L 21-32 ANION GAP (test code = GAP) 10-20 GLUCOSE (test code = GLU) mg/dL 74-106 BLOOD UREA NITROGEN (test code = BUN) mg/dL 7-18 GLOMERULAR FILTRATION RATE (test code = GFR) mL/min >=60 CREATININE (test code = CREAT) mg/dL 0.55-1.02 BUN/CREATININE RATIO (test code = BUN/CREA) 10-20 TOTAL PROTEIN (test code = PROT) gram/dL 6.4-8.2 ALBUMIN (test code = ALB) g/dL 3.4-5.0 GLOBULIN (test code = GLOB) gram/dL 2.7-4.2 ALBUMIN/GLOBULIN RATIO (test code = A/G) 0.75-1.50 CALCIUM (test code = CA) mg/dL 8.5-10.1 BILIRUBIN TOTAL (test code = BILT) mg/dL 0.0-1.0 SGOT/AST (test code = AST) IUnit/L 15-37 SGPT/ALT (test code = ALT) IUnit/L 12-78 ALKALINE PHOSPHATASE TOTAL (test code = ALKP) IUnit/L 45-117 [id number] 07:41:00* Test Item Value Reference Range Interpretation Comments LIPASE (test code = LIP) U/L 73.0-393.0 [id number] 07:41:00* Test Item Value Reference Range Interpretation Comments CKMB (test code = CKMBT) ng/mL 0-6.0 LPBTFUSP-B9214-24-11 07:41:00* Test Item Value Reference Range Interpretation Comments TROPONIN-I (test code = TROPI) ng/mL 0-0.045 - XR CHEST 1 [id number] 07:21:00 FAX: Kevin Bass MD [phone] [place]: St: PRE FAX: Marni Lemus [phone] Name: DAYANA RICHARDSON [facility] : 1960 Age/S: 58/F [address] [facility] Unit #: [id number] Loc: [place] [address] Phys: Marni Bush MD Acct: [id number] Dis Date: Status: PRE ER PHONE #: [phone] Exam Date: 12/01/2018 0655 FAX #: [phone] Reason: sob EXAMS: CPT CODE: [id number] XR CHEST 1 V 68582 EXAM: Chest x-ray, one view; INFORMATION: Shortness of breath; FINDINGS: Dense infiltrate involving the lower two thirds of the left lung. This is superimposed on underlying COPD. No evidence of effusion; Unremarkable cardiomediastinal silhouette. IMPRESSION: 1. Dense infiltrate in the left lung. 2. COPD. at 0721 Reported and signed by: Clif Laguna M.D. CC: Kevin Veronica MD; Marni Bush MD Technologist: Tavia Salas([place]) Trnscrd Date/Time/By: 12/01/2018 (07) : By: JakyW Orig Print D/T: S: 12/01/2018 (3891) PAGE 1 Signed Report CARDIAC [id number] 16:25:000.02[facility]ARD[facility]AC YOUWVRX2541-08-93 12:46:000.02[facility] HuugaukBTDGCWXRLIQB1275-26-71 12:46:007.7[facility] AWDJJGVQNPND6011-33-80 12:46:0075[facility] IjnwlmkFNIWASRSOYCQ4558-68-53 12:46:00 15[facility] LupdjkrTZYNYFVWKUQH5063-90-16 12:46:77236Fmipxzqa HermannELECTROLYTES 2018-09-15 12:46:003.7[facility] HqnhwfnDVZWWXCYTMTM1435-50-18 12:46:67333Szzqavld GoakrznNXNEJUQSQWQC1847-96-68 12:46:000.86[facility]annELECTROLYTES 2018-09-15 12:46:008.4[facility] QzkopsuZOSLLFXEULQI7934-64-96 12:46:0030[facility] AkskahbYKEBSPPJEHQS5482-51-15 12:46:38349Rxnvqmjj NffkejcXSNJKZLOQV4539-56-61 12:46:79308Enngtojb QngugkxJSWQHYLJYE6526-19-89 12:46:0033.8[facility] JFSMWOGDWS5132-40-98 12:46:0012.8[facility] NvdcgvtPHEQTELYMD9350-67-62 12:46:00 11.0[facility] NqsdoyaKITLTWGSWM2440-69-21 12:46:00* Test Item Value Reference Range Interpretation Comments MCH (test code = MCH) 31.1 pg 27.0-31.0 [facility] YifqbwoQLWPKECIRW5419-56-16 12:46:0092.1[facility]annHEMATOLOGY 2018-09-15 12:46:008.1[facility] CsqfzitJOJEZHQWZN2572-36-45 12:46:003.53[facility] SbpaqcbGLCNPAVZTK8870-46-79 12:46:0011.2[facility] LjitirvWXVAJXGVPQ6394-30-85 12:46:0032.5[facility] BrsceuxGHPJYWNQZC7599-57-48 12:46:000.1[facility] CFDASBJZHC5290-48-82 12:46:002.1[facility] FkucdwyLJHBSDHFSS9043-43-82 12:46:005.0 [facility] JuyefyiHDCZYNKIWR9668-75-96 12:46:001.3[facility]annHEMATOLOGY 2018-09-15 12:46:000.9[facility] DzkcfgxYHOEAVVPWC6477-09-41 12:46:0011.2[facility] RfhckkyZEJTEWDPBN8744-44-20 12:46:00Moderate *ABN*(09/15/18 6:46 AM)[facility] WqvaxbiLBIUKQADVS5502-50-12 12:46:0026.3[facility] PollwkjBJKULOVZTG0633-96-08 12:46:0061.2[facility] VcpfvwaBRQNHEZZES5121-47-91 12:46:00Normal (09/15/18 6:46 AM)[facility] EXPOY8777-72-22 07:10:001[facility] ANSZB0032-73-49 07:10:00Negative (09/15/18 1:10 AM)[facility] UIEIO3141-29-71 07:10:00Negative (09/15/18 1:10 AM)[facility] GQYNJ9398-92-00 07:10:001[facility] JCTRZ3629-48-35 07:10:00 Negative *NA*(09/15/18 1:10 AM)[facility] QGXAG9067-20-43 07:10:00 Negative (09/15/18 1:10 AM)[facility] QWTGE7141-13-98 07:10:00 Negative *NA*(09/15/18 1:10 AM)[facility] JUXRD2070-60-58 07:10:00 Negative (09/15/18 1:10 AM)[facility] YJXRH3678-18-38 07:10:00* Test Item Value Reference Range Interpretation Comments UA pH (test code = UA pH) 5.0 1 5.0-8.0 [facility] RHXLV2925-51-30 07:10:00* Test Item Value Reference Range Interpretation Comments UA Spec Grav (test code = UA Spec Grav) 1.037 1 [facility] QDHCO8757-80-64 07:10:00Clear (09/15/18 1:10 AM) [facility] PreijpzFUNMB6224-27-35 06:57:00Negative (09/15/18 12:57 AM)[facility]annVIRAL - EZYHPZQR3125-59-74 06:57:00Negative (09/15/18 12:57 AM)[facility]annVIRAL - HKWUIFQO8076-58-69 06:57:00Negative (09/15/18 12:57 AM)[facility]annCARDIAC JZBHSBE5087-34-67 04:43:0034[facility]annCARDIAC ENZYMES 2018-09-15 04:43:00<0.02[facility]annCARDIAC EAPBVEP6953-70-49 04:43:0039 [facility]annCHEM ISPIP7510-66-26 04:43:0058[facility]annCHEM PANEL 2018-09-15 04:43:000.3[facility] HermannCHEM RZDZL1907-22-22 04:43:0015[facility]annCHEM AUXDA8793-15-30 04:43:60795Wrqpdtyy HermannCHEM HIYAB6274-13-61 04:43:0020[facility]annCHEM SANTX3664-48-00 04:43:003.9[facility] HermannCHEM EROYS9441-91-24 04:43:007.1[facility]annCHEM YWSWU8852-61-73 04:43:008.9 [facility]annCHEM LJLCS0906-00-77 04:43:0030[facility]annCHEM PANEL 2018-09-15 04:43:59689Fvwsgzxx HermannCHEM DTPWL2111-68-82 04:43:003.9[facility]annCHEM XAZCW3021-00-23 04:43:44678Krehyzeu HermannCHEM NBCBA4186-56-72 04:43:001.07[facility] HermannCHEM GAXLN3753-31-48 04:43:0015[facility] HermannCHEM RLBAD6449-42-76 04:43:18932Jjakfhfr HermannCHEM GVGZJ0049-83-82 04:43:003.2 [facility]annCHEM RIOBV0568-98-88 04:43:00* Test Item Value Reference Range Interpretation Comments A/G Ratio (test code = A/G Ratio) 1.2 1 0.7-1.6 [facility]annCHEM GIWUB7376-31-43 04:43:00* Test Item Value Reference Range Interpretation Comments B/C Ratio (test code = B/C Ratio) 14 1 6-25 [facility]annCHEM EMVIG0537-55-23 04:43:008.9[facility]annHEMATOLOGY 2018-09-15 04:43:001.7[facility] VwadwuwBCGJEZCOWV5390-35-26 04:43:000.6[facility] DbtbzdnCEPXVGLMEA3543-30-41 04:43:000.1[facility] VjjichgIPBGVLEKBI4876-76-71 04:43:001.4[facility] YehmwaeGSLDYJNRMU8083-53-80 04:43:004.6[facility] ATJUGKUMFM7969-00-84 04:43:00Normal (09/14/18 10:43 PM)[facility]annHEMATOLOGY 2018-09-15 04:43:008.7[facility] RbcrqoqXPKFAYZZMJ8176-66-73 04:43:0023.8[facility] UiwmtufQZPPAPAWSP9037-75-30 04:43:0066.1[facility] IwqxaekGKJEQBYMSO6853-61-06 04:43:0033.1[facility] WmjidsiNTXXZMLPLQ5959-95-62 04:43:0012.9[facility] FVVYINRJOB4300-52-11 04:43:0012.5[facility] NlswsvrIPLBVBMLPU3785-31-93 04:43:00 164[facility] JzpkcwdJZQRABCQFK0465-83-35 04:43:00* Test Item Value Reference Range Interpretation Comments MCH (test code = MCH) 31.0 pg 27.0-31.0 [facility] DswoeyuPSLUEHFQVZ2827-87-85 04:43:006.9[facility] HermannHEMATOLOGY 2018-09-15 04:43:003.95[facility] VltpvcuKZCGENQXDU9055-01-65 04:43:0012.3[facility] VqnamdpDKFATSXMAD0916-06-39 04:43:0037.0[facility] PxmvvtfAHOMTXPCKQ8194-80-13 04:43:0093.6[facility] Rgprvbl3239-81-53 09:00:00* Test Item Value Reference Range Interpretation Comments Blood Culture (test code = 95988153) NO GROWTH AFTER 5 DAYS, FINAL REPORT [facility]2018-12-22 09:00:00* Test Item Value Reference Range Interpretation Comments Blood Culture (test code = 22540598) NO GROWTH AFTER 5 DAYS, FINAL REPORT [facility] Ntneomx2994-89-88 08:51:00* Test Item Value Reference Range Interpretation Comments Sputum Culture (test code = 624-7) Organism: STENOTROPHOMONAS MALTO PHILIA [facility] Nasfdvn8811-86-54 08:51:00* Test Item Value Reference Range Interpretation Comments Sputum Culture (test code = 624-7) Organism: STENOTROPHOMONAS MALTO ILSAIA [facility] Sxtaaal8480-32-07 11:56:00* Test Item Value Reference Range Interpretation Comments Bedside Glucose (test code = 29991-1) 205 70-120 H Meter ID: [id number] [facility] Glucose 2018-08-12 11:56:00* Test Item Value Reference Range Interpretation Comments Bedside Glucose (test code = 58297-5) 205 70-120 H Meter ID: [id number] Saint [facility]'s Hospital Glucose 2018-08-12 11:56:00* Test Item Value Reference Range Interpretation Comments Bedside Glucose (test code = 64007-4) 205 70-120 H Meter ID: [id number] Regional Hospital Culture 2018-08-12 08:33:00* Test Item Value Reference Range Interpretation Comments Sputum Culture (test code = 624-7) Organism: GRAM NEGATIVE BACILLUS [facility] Vgihr5123-20-54 05:59:00* Test Item Value Reference Range Interpretation Comments White Blood Count (test code = 6690-2) 11.02 4.8-10.8 H [facility] CenterRed [facility] Bmkrk1899-66-20 05:59:00* Test Item Value Reference Range Interpretation Comments Red Blood Count (test code = 789-8) 3.22 3.6-5.1 L [facility] CenterHemoglobin2018-12-21 05:59:00* Test Item Value Reference Range Interpretation Comments Hemoglobin (test code = 00023-7) 9.8 12.0-16.0 L [facility] CenterHematocrit2018-12-21 05:59:00* Test Item Value Reference Range Interpretation Comments Hematocrit (test code = 4544-3) 31.1 34.2-44.1 L [facility] CenterMean Corpuscular Pioqgn3378-06-67 05:59:00* Test Item Value Reference Range Interpretation Comments Mean Corpuscular Volume (test code = 787-2) 96.6 81-99 [facility] Corpuscular Ydniadchzz3255-36-82 05:59:00* Test Item Value Reference Range Interpretation Comments Mean Corpuscular Hemoglobin (test code = 785-6) 30.4 28-32 [facility] CenterMean Corpuscular Hemoglobin Concent 2018-08-12 05:59:00* Test Item Value Reference Range Interpretation Comments Mean Corpuscular Hemoglobin Concent (test code = 786-4) 31.5 31-35 [facility] CenterRed Cell Distribution Fvyoa2546-68-37 05:59:00* Test Item Value Reference Range Interpretation Comments Red Cell Distribution Width (test code = 48766-9) 12.2 11.7 -14.4 [facility] CenterPlatelet Vdhnn3744-93-54 05:59:00* Test Item Value Reference Range Interpretation Comments Platelet Count (test code = 777-3) 248 140-360 [facility] CenterNeutrophils (%) (Auto)2018-08-12 05:59:00 * Test Item Value Reference Range Interpretation Comments Neutrophils (%) (Auto) (test code = 60752-0) 85.2 38.7-80.0 H [facility] CenterLymphocytes (%) (Auto)2018-08-12 05:59:00 * Test Item Value Reference Range Interpretation Comments Lymphocytes (%) (Auto) (test code = 736-9) 8.5 18.0-39.1 L [facility] CenterMonocytes (%) (Auto)2018-08-12 05:59:00* Test Item Value Reference Range Interpretation Comments Monocytes (%) (Auto) (test code = 5905-5) 5.5 4.4-11.3 [facility] CenterEosinophils (%) (Auto)2018-08-12 05:59:00 * Test Item Value Reference Range Interpretation Comments Eosinophils (%) (Auto) (test code = 713-8) 0.0 0.0-6.0 [facility] CenterBasophils (%) (Auto)2018-08-12 05:59:00* Test Item Value Reference Range Interpretation Comments Basophils (%) (Auto) (test code = 706-2) 0.3 0.0-1.0 [facility] CenterIM GRANULOCYTES %2018-08-12 05:59:00* Test Item Value Reference Range Interpretation Comments IM GRANULOCYTES % (test code = IM GRANULOCYTES %) 0.5 0.0- 1.0 [facility] CenterNeutrophils # (Auto)2018-08-12 05:59:00* Test Item Value Reference Range Interpretation Comments Neutrophils # (Auto) (test code = 751-8) 9.4 2.1-6.9 H [facility] CenterLymphocytes # (Auto)2018-08-12 05:59:00* Test Item Value Reference Range Interpretation Comments Lymphocytes # (Auto) (test code = 00450-1) 0.9 1.0-3.2 L [facility] CenterMonocytes # (Auto)2018-08-12 05:59:00* Test Item Value Reference Range Interpretation Comments Monocytes # (Auto) (test code = 742-7) 0.6 0.2-0.8 [facility]Eosinophils # (Auto)2018-08-12 05:59:00* Test Item Value Reference Range Interpretation Comments Eosinophils # (Auto) (test code = 711-2) 0.0 0.0-0.4 [facility]Basophils # (Auto)2018-08-12 05:59:00* Test Item Value Reference Range Interpretation Comments Basophils # (Auto) (test code = 704-7) 0.0 0.0-0.1 [facility] CenterAbsolute Immature Granulocyte (auto 2018-08-12 05:59:00* Test Item Value Reference Range Interpretation Comments Absolute Immature Granulocyte (auto (edith t code = Absolute Immature Granulocyte (auto) 0.06 0-0.1 [facility] [id number] 05:48:00* Test Item Value Reference Range Interpretation Comments Sodium Level (test code = 2951-2) 136 136-145 [facility] CenterPotassium Foeyu6418-22-02 05:48:00* Test Item Value Reference Range Interpretation Comments Potassium Level (test code = 2823-3) 4.7 3.5-5.1 [facility] CenterChloride Oerkj5280-58-68 05:48:00* Test Item Value Reference Range Interpretation Comments Chloride Level (test code = 2075-0) 96 98-107 L [facility] CenterCarbon Dioxide Lkhpa2770-56-83 05:48:00* Test Item Value Reference Range Interpretation Comments Carbon Dioxide Level (test code = 2028-9) 30 22-29 H [facility] CenterAnion Qqx3326-70-17 05:48:00* Test Item Value Reference Range Interpretation Comments Anion Gap (test code = 98750-0) 14.7 8-16 [facility] CenterBlood Urea Armgiztp1867-23-16 05:48:00* Test Item Value Reference Range Interpretation Comments Blood Urea Nitrogen (test code = 3094-0) 23 7-26 [facility] CenterCreatinine2018-12-21 05:48:00* Test Item Value Reference Range Interpretation Comments Creatinine (test code = 2160-0) 1.15 0.57-1.11 H [facility] CenterBUN/Creatinine Mnwbu1605-07-23 05:48:00* Test Item Value Reference Range Interpretation Comments BUN/Creatinine Ratio (test code = 3097-3) 20 6-25 [facility] CenterEstimat Glomerular Filtration Rate 2018-08-12 05:48:00* Test Item Value Reference Range Interpretation Comments Estimat Glomerular Filtration Rate (test code = 530924471) 49 >60 L Ranges were taken from the National Kidney Disease Education Program and the [facility] [employer] literature.Reference ranges:60 or greater: Dbzejx36-46 ( for 3 consecutive months): Chronic kidney disease 15 or less: Kidney failureNorth [facility] Medical CenterGlucose Zgsle5563-64-43 05:48:00* Test Item Value Reference Range Interpretation Comments Glucose Level (test code = ONY6781) 198 74-118 H [facility] CenterCalcium Thrpi4304-03-51 05:48:00* Test Item Value Reference Range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
--- NOTE | 2020-01-29 01:20 | Emergency Department Note ---
History of Present Illnes History of Present Illness Chief Complaint: Chest Pain History of Present Illness This is a 59 year old [place] [facility] for respirat ory distress and HR of 40 bpm's. Per OR nurse, patient was acting increasingly lethargic this evening and was noted to have difficulty in breathing through tracheostomy tube. Patient brought by EMS in extremis. . 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 Any updates have been documented here. Past Medical History Unable to obtain PMH: critical patient Clinical Suspicion of Infectio: Yes New/Unexplained Change in Ment: Yes Past Medical History: Hypertension, Diabetes, COPD, [place], Asthma, Anxiety Other Medical History: Bipolar Past Surgical History: Cholecysctectomy, T&A, Other Surgery: csection gastric stapling CARDIAC CATHERIZATION Social History Smoking Cessation: Former smoker Alcohol Use: None Any Illegal Drug Use: No Other Last Tetanus: unknown Review of Systems ROS Narrative Unable to obtain ROS: critical patient Review of Systems Review of other systems All other systems reviewed and negative. Physical Exam Related Data Allergies: Coded Allergies: Penicillins (Verified Allergy, Mild, RASH, 10/05/14) levofloxacin (Verified Allergy, Unknown, 01/29/20) Physical Exam CONSTITUTIONAL Constitutional: cachectic, distressed, ill appearing HENT HENT: normocephalic, atraumatic, mucosae dry HENT L/R: left ext ear normal, right ext ear normal EYES Eyes: PERRL, conjunctivae normal NECK Neck: ROM normal PULMONARY Pulmonary: respiratory distress CARDIOVASCULAR Cardiovascular: bradycardia GASTROINTESTINAL Abdominal: soft, nontender GENITOURINARY Genitourinary: exam deferred SKIN Skin: pale MUSCULOSKELETAL Musculoskeletal: ROM normal NEUROLOGICAL Neurological: weakness PSYCHOLOGICAL Psychological: mood/affect normal, judgement normal Results Laboratory Laboratory Laboratory Tests Test 01/29/20 03:18 01/29/20 01:15 Sodium Level 146 mmol/L (136-145) 144 mmol/L (136-145) Potassium Level 4.6 mmol/L (3.5-5.1) 7.1 mmol/L (3.5-5.1) Chloride Level 108 mmol/L (98-107) 103 mmol/L (98-107) Carbon Dioxide Level 27 mmol/L (22-29) 24 mmol/L (22-29) Anion Gap 15.6 mmol/L (8-16) 24.1 mmol/L (8-16) Blood Urea Nitrogen 27 mg/dL (7-26) 25 mg/dL (7-26) Creatinine 1.28 mg/dL (0.57-1.11) 1.29 mg/dL (0.57-1.11) Estimat Glomerular Filtration Rate 43 ML/MIN (60-) 42 ML/MIN (60-) BUN/Creatinine Ratio 21 (6-25) 19 (6-25) Glucose Level 288 mg/dL (74-118) 127 mg/dL (74-118) Lactic Acid Level 3.3 mmol/L (0.5-2.0) 6.5 mmol/L (0.5-2.0) Calcium Level 10.1 mg/dL (8.4-10.2) 11.1 mg/dL (8.4-10.2) White Blood Count 26.68 x10e3/uL (4.8-10.8) Red Blood Count 3.59 x10e6/uL (3.6-5.1) Hemoglobin 11.4 g/dL (12.0-16.0) Hematocrit 37.2 % (34.2-44.1) Mean Corpuscular Volume 103.6 fL (81-99) Mean Corpuscular Hemoglobin 31.8 pg (28-32) Mean Corpuscular Hemoglobin Concent 30.6 g/dL (31-35) Red Cell Distribution Width 13.8 % (11.7-14.4) Platelet Count 175 x10e3/uL (140-360) Neutrophils (%) (Auto) 88.4 % (38.7-80.0) Lymphocytes (%) (Auto) 4.9 % (18.0-39.1) Monocytes (%) (Auto) 3.7 % (4.4-11.3) Eosinophils (%) (Auto) 0.1 % (0.0-6.0) Basophils (%) (Auto) 0.7 % (0.0-1.0) Neutrophils # (Auto) 23.6 (2.1-6.9) Lymphocytes # (Auto) 1.3 (1.0-3.2) Monocytes # (Auto) 1.0 (0.2-0.8) Eosinophils # (Auto) 0.0 (0.0-0.4) Basophils # (Auto) 0.2 (0.0-0.1) Absolute Immature Granulocyte (auto 0.59 x10e3/uL (0-0.1) Total Bilirubin 0.9 mg/dL (0.2-1.2) Aspartate Amino Transf (AST/SGOT) 163 IU/L (5-34) Alanine Aminotransferase (ALT/SGPT) 107 IU/L (0-55) Alkaline Phosphatase 127 IU/L (40-150) Creatine Kinase 37 IU/L (29-168) Creatine Kinase MB 0.90 ng/mL (0-5.0) Troponin I 0.024 ng/mL (0-0.300) Total Protein 6.5 g/dL (6.5-8.1) Albumin 2.9 g/dL (3.5-5.0) Globulin 3.6 g/dL (2.3-3.5) Albumin/Globulin Ratio 0.8 (0.8-2.0) Lab results reviewed: Yes Laboratory comments Venous Blood Gas : Respiratory acidosis Imaging Imaging results reviewed: Yes Impressions [place] [id number] Patient Name: DAYANA RICHARDSON MR #: [id number] : 1960 Age/Sex: 59/F Req #: [id number] Adm Physician: Ordered by: LALO TOMAS DO Report #: [id number] Location: ER Room/Bed: Procedure: [id number] DX/CHEST SINGLE (PORTABLE) Exam Date: 01/29/20 Exam Time: 0110 REPORT STATUS: Signed EXAMINATION: CHEST SINGLE (PORTABLE) COMPARISON: Chest x-ray 10/05/2019, CT chest 08/02/2020 INDICATION: Respiratory distress, tracheostomy ^Y ^SOB ^[id number] ^0110 DISCUSSION: Frontal view of the chest obtained at 0046 hours. HEART AND MEDIASTINUM: The cardiomediastinal silhouette is unremarkable. LINES: Tracheostomy is midline in position. LUNGS/PLEURA: Diffuse pulmonary hyperinflation is stable. There is discoid atelectasis or scarring in the base of the right lung. No pneumonia or pulmonary edema. No pleural effusion or pneumothorax. BONES AND SOFT TISSUES: No focal osseous lesion. The soft tissues are normal. IMPRESSION: Pulmonary hyperinflation suggestive of COPD. No acute cardiopulmonary process. Signed by: Dr. 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 TEAM DIRECTOR tracings: reviewed Rhythm: sinus bradycardia Rate: bradycardia QRS axis: normal ST segments normal: Yes ST segment flattening: all T waves normal: No T wave elevation: V3, V4, V5, V6 Clinical Impression: abnormal ECG Central Line Placement Central Line Location: left femoral Time out performed: Yes Patient Placed on Monitor/Puls: Yes Prep: mask, gown, gloves, other Central Line Prep: Chlorhexidine scrub Ultrasound Used for Placement: No Central Line Lumen Inserted: triple Post Procedure: sutured in place, good blood return, all ports aspirated/flushed/capped, sterile dressing applied Post Procedure X-ray: tip of catheter in good condition Patient tolerated procedure: well Complications: other Additional comments Initial CVC attempt at R femoral vein . Unable to thread guidewire after seldinger technique performed. Procedure of the CVC at the R Femoral Vein ABORTED. 2nd attempt at the left femoral vein successful. Critical Care Time Total Critical Care Time (min): 40 Critcal care necessary due to: shock Assessment & Plan Assessment & Plan Final Impression: (1) Septic shock (2) Hyperkalemia (3) Bradycardia by electrocardiogram (4) Acute respiratory acidosis (5) UTI (urinary tract infection) Assessment & Plan patient critically ill but improving hemodynamics with early Goal directed therapy. [facility]. Admission accepted by Alexandru Renteria Disposition: TRANS TO OTHER [facility] Home Meds Reported Medications Alprazolam (ALPRAZOLAM) 0.25 Mg Tablet, 0.25 MG GT Q8H PRN for ANXIETY, #90 TAB 10/03/19 Calcium Carbonate (TUMS) 200 Mg Tab.chew, 500 MG GT Q8H 10/03/19 Tramadol Hcl (ULTRAM) 50 Mg Tablet, 50 MG GT Q6H PRN for MODERATE PAIN (4-6), TAB 10/03/19 Montelukast Sodium (SINGULAIR) 10 Mg Tablet, 10 MG GT DAILY 10/03/19 Prednisone (PREDNISONE) 10 Mg Tab, 10 MG GT BID, TAB 10/03/19 Insulin Glargine (LANTUS 3ML PEN) 100 Units/1 Ml Inj, 15 U SQ HS 10/03/19 Ferrous Sulfate (FERROUS SULFATE) 325 Mg Tablet, 325 MG GT DAILY 10/03/19 Famotidine (FAMOTIDINE) 20 Mg Tab, 20 MG GT BID, #30 TAB 10/03/19 Venlafaxine Hcl* (EFFEXOR XR 37.5MG CAPCR*) 37.5 Mg Capcr, 75 MG GT DAILY 10/03/19 Clopidogrel Bisulfate (CLOPIDOGREL) 75 Mg Tablet, 75 MG GT DAILY, #30 TAB 10/03/19 Benzonatate (BENZONATATE) 100 Mg Capsule, 100 MG GT TID, CAP 10/03/19 Atorvastatin Calcium (ATORVASTATIN CALCIUM) 20 Mg Tablet, 80 MG PO HS, #30 TAB 10/03/19 Atenolol (TENORMIN) 50 Mg Tablet, 25 MG GT DAILY, #30 TAB 10/03/19 Aspirin (ASPIR 81) 81 Mg Tablet.dr, 81 MG GT DAILY 10/03/19 Arformoterol Tartrate (BROVANA) 15 Mcg/2 Ml Nebu, 1 DOSE NEB RBID 10/03/19 Amlodipine Besylate (AMLODIPINE BESYLATE) 10 Mg Tablet, 10 MG GT DAILY, #30 TAB 10/03/19 Ticagrelor (BRILINTA) 90 Mg Tablet, PO BID 12/27/18 Ipratropium/Albuterol Sulfate (COMBIVENT RESPIMAT INHAL SPRAY) 4 Gm Aer.w.adap, 4 GM IH QID, INH 12/22/18 Insulin Glargine (LANTUS 3ML PEN) 100 Units/1 Ml Inj, 15 UNITS SQ HS 08/09/18 Lamotrigine (LAMOTRIGINE) 100 Mg Tablet, 100 MG PO HS 08/08/18 Losartan Potassium (LOSARTAN POTASSIUM) 25 Mg Tablet, 50 MG PO DAILY 09/05/16 Buspirone Hcl (BUSPIRONE HCL) 15 Mg Tablet, 15 PO QID PRN for ANXIETY 09/05/16 Glimepiride (GLIMEPIRIDE) 4 Mg Tablet, 4 MG PO BID 09/05/16 Albuterol Sulf* (PROAIR HFA INHALER*) 8.5 Gm Inh, INH PRN 07/07/16 Pravastatin Sodium (PRAVASTATIN SODIUM) 40 Mg Tablet, 40 MG PO HS 11/21/14 Furosemide (LASIX) 40 Mg Tablet, 40 MG PO DAILY, #30 TAB 10/06/14 Pantoprazole Sodium* (PROTONIX) 40 Mg Tablet.dr, 40 MG PO DAILY, TAB 10/06/14 Sucralfate (SUCRALFATE) 1 Gm Tablet, 1 GM PO DAILY, TAB 10/06/14 Medications in the ED Sodium Chloride 1,000 ml @ 0 mls/hr Q0M IV ; Start 01/29/20 at 01:15; Stop 02/28/20 at 01:14 Sodium Chloride 1,000 ml @ 0 mls/hr Q0M IV ; Start 01/29/20 at 01:15; Stop 02/28/20 at 01:14 Dopamine HCl/ Dextrose 250 ml @ 0 mls/hr TITRATE PRN IV HEART RATE; Start 01/29/20 at 01:15; Stop 02/28/20 at 01:14 LALO TOMAS DO Jan 29, 2020 01:20
[2020-01-29 01:52] LABS: ALBUMIN 2.9 g/dL (3.5-5.0); ALBUMIN/GLOBULIN RATIO 0.8 (0.8-2.0); CREATININE, SERUM 1.29 mg/dL (0.57-1.11)
--- NOTE | 2020-01-29 01:56 | Diagnostic Imaging Report ---
EXAMINATION: CHEST SINGLE (PORTABLE) COMPARISON: Chest x-ray 10/05/2019, CT chest 08/02/2020 INDICATION: Respiratory distress, tracheostomy ^Y ^SOB ^[id number] ^0110 DISCUSSION: Frontal view of the chest obtained at 0046 hours. HEART AND MEDIASTINUM: The cardiomediastinal silhouette is unremarkable. LINES: Tracheostomy is midline in position. LUNGS/PLEURA: Diffuse pulmonary hyperinflation is stable. There is discoid atelectasis or scarring in the base of the right lung. No pneumonia or pulmonary edema. No pleural effusion or pneumothorax. BONES AND SOFT TISSUES: No focal osseous lesion. The soft tissues are normal. IMPRESSION: Pulmonary hyperinflation suggestive of COPD. No acute cardiopulmonary process. Signed by: Dr. Bety Manuel MD on 01/29/2020 1:53 AM
[2020-01-29 02:02] LABS: BASOPHILS # (AUTO) 0.2 (0.0-0.1); BASOPHILS % 0.7 % (0.0-1.0); EOSINOPHILS % 0.1 % (0.0-6.0); HEMATOCRIT 37.2 % (34.2-44.1); HEMOGLOBIN 11.4 g/dL (12.0-16.0); LYMPHOCYTES # (AUTO) 1.3 (1.0-3.2); LYMPHOCYTES % 4.9 % (18.0-39.1); MEAN CORPUSCULAR HEMOGLOBIN 31.8 pg (28-32); MEAN CORPUSCULAR HGB CONC 30.6 g/dL (31-35); MEAN CORPUSCULAR VOLUME 103.6 fL (81-99); MONOCYTES % 3.7 % (4.4-11.3); NEUTROPHILS # (AUTO) 23.6 (2.1-6.9); NEUTROPHILS % 88.4 % (38.7-80.0); PLATELET COUNT 175 x10e3/uL (140-360); RED BLOOD COUNT 3.59 x10e6/uL (3.6-5.1); RED CELL DISTRIBUTION WIDTH 13.8 % (11.7-14.4)
--- NOTE | 2020-01-29 02:04 | NUR ---
ER MD AND PRIMARY RN NOTIFIED AND AWARE OF CRITICAL LAB VALUE, LACTIC ACID 6.5.
[2020-01-29 02:11] LABS: CREATINE KINASE MB 0.9 ng/mL (0-5.0)
[2020-01-29 02:14] LABS: ANION GAP 24.1 mmol/L (8-16)
[2020-01-29 02:15] LABS: CALCIUM 11.1 mg/dL (8.4-10.2)
[2020-01-29 02:17] LABS: POTASSIUM 7.1 mmol/L (3.5-5.1)
[2020-01-29 04:07] LABS: ANION GAP 15.6 mmol/L (8-16); CALCIUM 10.1 mg/dL (8.4-10.2); CREATININE, SERUM 1.28 mg/dL (0.57-1.11)
[2020-01-29 04:08] LABS: POTASSIUM 4.6 mmol/L (3.5-5.1)
--- NOTE | 2020-01-29 04:08 | NUR ---
ER MD AND PRIMARY RN NOTIFIED AND AWARE OF CRITICAL LAB VALUE, LACTIC ACID 3.3.
--- NOTE | 2020-01-29 07:06 | NUR ---
[facility] called for transport.
--- NOTE | 2020-01-29 08:04 | NUR ---
EMS HERE FOR PT
[2020-01-29 08:26] VITALS: BP 171/122
== END | disposition other institution (70) ==
LOC: ER 00:51
DX: R06.03 Acute respiratory distress (principal); E87.2 Acidosis; R65.21 Severe sepsis with septic shock; R00.1 Bradycardia, unspecified; E87.5 Hyperkalemia; I10 Essential (primary) hypertension; E11.9 Type 2 diabetes mellitus without complications; J44.9 Chronic obstructive pulmonary disease, unspecified; F31.9 Bipolar disorder, unspecified; I25.2 Old myocardial infarction
CPT/HCPCS: 36415; 51700; 71045; 80048; 80053; 82550; 82553; 83605; 84484; 85025; 87040; 87635; 93005; 94002; 94640; 99285; J1580; J1817; J1940; J7030; J7799